=== PATIENT | female | born 1930 | race Hispanic/Latino ===

== ENCOUNTER 2017-01-15 07:49 | Observation (INO) | payer MEDICARE, OTHER ==
[2017-01-15 08:05] VITALS: BMI 20.5
--- NOTE | 2017-01-15 08:12 | ED PDOC ---
Arrival/HPI - General Time Seen by Provider: 01/15/17 07:50 Historian: Patient - History of Present Illness Narrative History of Present Illness (Text): 86 F with pmh of depression, insomnia, anxiety disorder, presents to the ED after passing out. Pt states that this morning she was having a cup of coffee when she passed out. She states that this has happened before and she was just dehydrated. This was witnessed by her daughter which saw her fall. She denies any history of seizures. She denies any headache, dizziness, f/c, sob, chest pain, palpitations, abd pain, n/v/d/c or urinary changes. PMH: depression, insomnia, anxiety disorder PSH: appendectomy (in the 1949's) Allergies: tetracycline Meds: Prozac, Klonopin SH: previous smoker 30 years ago (light use), denies alcohol or illicit drug use PMD: Dr. Epstein, Dr. Floyd Time/Duration: Prior to Arrival Symptom Onset: Sudden Symptom Course: Improving Quality: Other Activities at Onset: Eating Past Medical History - Provider Review Nursing Documentation Reviewed: Yes - Infectious Disease Hx of Infectious Diseases: None - Tetanus Immunization Tetanus Immunization: Unknown - Cardiac Hx Cardiac Disorders: Yes Hx Hypertension: Yes - Pulmonary Hx Respiratory Disorders: (SMOKED CIGARETTES BEFORE QUIT PK EVERY OTHER DAY) Hx Tuberculosis: No - Neurological Hx Neurological Disorder: Yes Hx Dizziness: Yes (SYNCOPE "FAINT") Hx Seizures: No - HEENT Hx HEENT Disorder: Yes 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) - Renal Hx Renal Disorder: No - Endocrine/Metabolic Hx Endocrine Disorders: No - Hematological/Oncological Hx Cancer: No - Integumentary Hx Dermatological Disorder: Yes (FELL TODAY 16 HAD A LINEAR SKIN ABRASION MEASURES 11 CM IN LENGTHX0.5) - Musculoskeletal/Rheumatological Hx Arthritis: Yes (L hand, low back) - Gastrointestinal Hx Gastrointestinal Disorders: Yes (C DIFF 09-04-12,IBS(IRRITABLE BOWEL SYNDROME )) Hx Diverticulitis: Yes - Genitourinary/Gynecological Hx Sexually Transmitted Diseases: No Hx Urinary Tract Infection: Yes - Psychiatric Hx Anxiety: Yes Hx Substance Use: No - Past Surgical History Past Surgical History: Non-Contributing - Surgical History Hx Appendectomy: Yes - Anesthesia Hx Anesthesia: Yes Hx Anesthesia Reactions: No Hx Malignant Hyperthermia: No - Suicidal Assessment Feels Threatened In Home Enviroment: No Family/Social History - Physician Review Nursing Documentation Reviewed: Yes Family/Social History: No Known Family HX Smoking Status: Former Smoker Hx Alcohol Use: No Hx Substance Use: No Hx Substance Use Treatment: No Allergies/Home Meds Allergies/Adverse Reactions: Allergies tetracycline Allergy (Severe, Verified 01/15/17 08:18) ANAPHYLAXIS Home Medications: Home Meds Medication Instructions Recorded Confirmed clonazePAM [Klonopin] 1 mg PO QID 01/15/17 01/15/17 Review of Systems - Physician Review All systems were reviewed & negative as marked: Yes - Review of Systems Constitutional: absent: Fevers, Night Sweats Eyes: absent: Vision Changes ENT: absent: Hearing Changes Respiratory: absent: SOB Cardiovascular: absent: Chest Pain, Palpitations Gastrointestinal: absent: Abdominal Pain, Diarrhea Musculoskeletal: absent: Arthralgias, Back Pain, Neck Pain Skin: absent: Rash Neurological: absent: Headache, Dizziness, Focal Weakness Endocrine: absent: Diaphoresis Hemo/Lymphatic: absent: Easy Bleeding Psychiatric: Anxiety Physical Exam Vital Signs Reviewed: Yes Vital Signs Temp Pulse Resp BP Pulse Ox 01/15/17 10:29 70 18 165/78 H 100 01/15/17 09:45 68 18 138/82 100 01/15/17 08:20 77 12 149/74 99 01/15/17 08:02 97.9 F 75 18 116/46 L 98 Temperature: Afebrile Blood Pressure: Normal Pulse: Regular Respiratory Rate: Normal Appearance: Positive for: Well-Appearing, Non-Toxic, Comfortable Mental Status: Positive for: Alert and Oriented X 3 Finger Stick Blood Glucose: 114 - Systems Exam Head: Present: Atraumatic, Normocephalic Pupils: Present: PERRL Mouth: Present: Moist Mucous Membranes Neck: Present: Normal Range of Motion Respiratory/Chest: Present: Clear to Auscultation, Good Air Exchange. No: Respiratory Distress, Accessory Muscle Use, Wheezes, Rales Cardiovascular: Present: Regular Rate and Rhythm, Normal S1, S2. No: Murmurs Abdomen: Present: Normal Bowel Sounds. No: Tenderness, Distention, Peritoneal Signs Upper Extremity: No: Cyanosis, Edema Lower Extremity: No: Edema, CALF TENDERNESS Neurological: Present: GCS=15, CN II-XII Intact, Speech Normal Skin: Present: Warm, Dry, Normal Color. No: Rashes Psychiatric: Present: Alert, Oriented x 3, Normal Insight, Normal Concentration , Anxious Medical Decision Making ED Course and Treatment: Impression: 86 F with presents following syncopal episode at home Differential Diagnosis included but are not limited to: Syncope vs seizure vs CVA Plan: CBC, CMP, CXR, Head CT -- Reassess and disposition Prior Visits: Notes and results from previous visits were reviewed. On // patient came in complaining of . Patient was discharged * with prescription of . Progress Notes: CXR shows no active disease. Head CT was negative for any acute intracranial hemorrhage EKG: Ordered, reviewed, and independently interpreted the EKG. Rate : 70 BPM Rhythm : NSR Interpretation : nonspecific ST and T wave abnormality Comparison : 07/12/16 - Lab Interpretations Lab Results: 01/15/17 08:15 01/15/17 08:58 Lab Results 01/15/17 09:10: Urine Color Yellow, Urine Appearance Clear, Urine pH 6.5, Ur Specific [employer] 1.010, Urine Protein Trace H, Urine Glucose (UA) Negative, Urine Ketones Negative, Urine Blood Trace-intact H, Urine Nitrate Positive H, Urine Bilirubin Negative, Urine Urobilinogen 0.2, Ur Leukocyte Esterase Negative , Urine RBC 0 - 2, Urine WBC 0 - 2, Ur Epithelial Cells 0 - 2, Urine Bacteria Many 01/15/17 08:58: Sodium 132, Potassium 4.5, Chloride 95 L, Carbon Dioxide 28, Anion Gap 14, BUN 15, Creatinine 0.8, Est GFR ( Amer) > 60, Est GFR (Non- Af Amer) > 60, Random Glucose 118 H, Calcium 9.6, Total Bilirubin 0.5, AST 20, ALT 23, Alkaline Phosphatase 64, Lactate Dehydrogenase 321 L, Total Creatine Kinase 26 L, Troponin I < 0.01, Total Protein 6.9, Albumin 3.9, Globulin 3.0, Albumin/Globulin Ratio 1.3 01/15/17 08:15: WBC 5.8, RBC 3.89, Hgb 12.6, Hct 37.2, MCV 95.6, MCH 32.4, MCHC 33.9, RDW 13.3, Plt Count 301, MPV 10.0, Gran % 37.7 L, Lymph % (Auto) 51.5 H, Porter % (Auto) 8.1 H, Eos % (Auto) 2.4, Baso % (Auto) 0.3, Gran # 2.18, Lymph # 3.0, Porter # 0.5, Eos # 0.1, Baso # 0.02 01/15/17 07:56: POC Glucose (mg/dL) 114 H - RAD Interpretation Radiology Orders: 01/15/17 08:06 HEAD W/O CONTRAST [CT] Stat 01/15/17 08:07 CHEST PORTABLE [RAD] Stat - Medication Orders Current Medication Orders: Discontinued Medications Clonazepam (Klonopin) 1 mg PO STAT STA PRN Reason: Protocol Stop: 01/15/17 09:19 Last Admin: 01/15/17 09:32 Dose: 1 mg Fluoxetine HCl (Prozac) 40 mg PO STAT STA Stop: 01/15/17 09:19 Last Admin: 01/15/17 09:45 Dose: 40 mg Ceftriaxone Sodium (Rocephin 1 Gram Ivpb) 1 gm in 100 mls @ 200 mls/hr IVPB STAT STA PRN Reason: Protocol Stop: 01/15/17 10:34 Last Admin: 01/15/17 10:22 Dose: 200 mls/hr Metronidazole (Flagyl) 500 mg PO STAT STA PRN Reason: Protocol Stop: 01/15/17 10:19 - PA / MANAGER ENVIRONMENTAL SERVICES / Resident Statement SIMIN has reviewed & agrees with the documentation as recorded. / has examined the patient and agrees with the treatment plan. Disposition/Present on Arrival - Present on Arrival Any Indicators Present on Arrival: No History of DVT/PE: No History of Uncontrolled Diabetes: No Urinary Catheter: No History Surgical Site Infection Following: None - Disposition Have Diagnosis and Disposition been Completed?: Yes Diagnosis: Syncope and collapse, UTI (urinary tract infection) Disposition Time: 09:54 Patient Plan: Admission Condition: FAIR Discharge Instructions (ExitCare): Syncope (ED)
[2017-01-15 08:31] LABS: ADD MANUAL DIFF? NO
[2017-01-15 08:34] LABS: BASO # 0.02 K/mm3 (0.0-2.0); BASO % 0.3 % (0.0-3.0); EOS # 0.1 (0.0-0.7); EOS % 2.4 % (1.5-5.0); GRAN # 2.18 (1.4-6.5); GRAN % 37.7 % (50.0-68.0); HEMATOCRIT 37.2 % (36.0-48.0); LYMPH % 51.5 % (22.0-35.0); MEAN CELL VOLUME 95.6 fL (80.0-105.0); MEAN CORPUSCULAR HEMOGLOBIN 32.4 pg (25.0-35.0); MEAN CORPUSCULAR HGB CONC 33.9 g/dl (31.0-37.0); MONO # 0.5 (0.1-0.6); MONO % 8.1 % (1.0-6.0); PLATELET COUNT 301 10^3/uL (120.0-450.0); RED CELL DISTRIBUTION WIDTH 13.3 % (11.5-14.5); WHITE BLOOD COUNT 5.8 10^3/ul (4.5-11.0)
--- NOTE | 2017-01-15 08:57 | CT ---
PROCEDURE: CT HEAD WITHOUT CONTRAST. HISTORY: syncope COMPARISON: Comparison is made to the previous study dated 02/26/2016. TECHNIQUE: Axial computed tomography images were obtained through the head/brain without intravenous contrast. Radiation dose: Total exam DLP = 688.42 mGy-cm. This CT exam was performed using one or more of the following dose reduction techniques: Automated exposure control, adjustment of the mA and/or kV according to patient size, and/or use of iterative reconstruction technique. FINDINGS: HEMORRHAGE: No intracranial hemorrhage. BRAIN: No mass effect or edema. No atrophy or chronic microvascular ischemic changes. VENTRICLES: Unremarkable. No hydrocephalus. CALVARIUM: Unremarkable. PARANASAL SINUSES: Unremarkable as visualized. No significant inflammatory changes. MASTOID AIR CELLS: Unremarkable as visualized. No inflammatory changes. OTHER FINDINGS: None. IMPRESSION: No evidence of acute intracranial hemorrhage or acute pathology in the brain. No significant interval change noted since the previous exam.
--- NOTE | 2017-01-15 09:06 | RAD ---
HISTORY: syncope COMPARISON: 07/12/2016 FINDINGS: LUNGS: No active pulmonary disease. PLEURA: No significant pleural effusion identified, no pneumothorax apparent. CARDIOVASCULAR: Normal. OSSEOUS STRUCTURES: No significant abnormalities. VISUALIZED UPPER ABDOMEN: Normal. OTHER FINDINGS: None. IMPRESSION: No active disease.
[2017-01-15 09:28] LABS: ALB/GLOB RATIO 1.3 (1.1-1.8); ALKALINE PHOSPHATASE 64 U/L (38-133); ALT/SGPT 23 U/L (7-56); AST/SGOT 20 U/L (15-39); BILIRUBIN,TOTAL 0.5 mg/dL (0.2-1.3); BLOOD UREA NITROGEN 15 mg/dL (7-21); CALCIUM 9.6 mg/dL (8.4-10.5); CARBON DIOXIDE 28 mmol/L (21-33); CHLORIDE 95 mmol/L (98-107); GFR AFRICAN-AMERICAN > 60; GLUCOSE,RANDOM 118 mg/dL (70-110); POTASSIUM 4.5 mmol/L (3.6-5.0); SODIUM 132 mmol/L (132-148); TOTAL PROTEIN 6.9 g/dL (5.8-8.3)
[2017-01-15 09:34] LABS: PH,URINE 6.5 (4.7-8.0); URINE APPEARANCE CLEAR (CLEAR); URINE BILIRUBIN NEGATIVE (NEGATIVE); URINE BLOOD TRACE-INTACT (NEGATIVE); URINE COLOR YELLOW (YELLOW); URINE GLUCOSE (UA) NEGATIVE (NEGATIVE); URINE KETONE NEGATIVE (NEGATIVE); URINE LEUKOCYTE ESTERASE NEGATIVE Leu/uL (NEGATIVE); URINE PROTEIN TRACE mg/dL (<30 mg/dL); URINE UROBILINOGEN 0.2 E.U./dL (<1 E.U./dL)
[2017-01-15 09:39] LABS: TROPONIN I < 0.01 ng/mL
[2017-01-15 09:48] LABS: URINE BACTERIA MANY (NEG); URINE EPITHELIAL CELLS 0 - 2 /hpf (0-5); URINE RBC 0 - 2 /hpf (0-2); URINE WBC 0 - 2 /hpf (0-6)
[2017-01-15] MEDS ORDERED: cefTRIAXone 1 gm 1 GM/100 ML BAG IVPB STA (10:05)
--- NOTE | 2017-01-15 13:33 | CARD ---
APPROVED REPORT EKG Measurement Heart [id number] <Conclusion> Normal sinus rhythm STTW changes c/w ischemia
--- NOTE | 2017-01-15 17:06 | CON ---
DATE: 01/15/2017 CHIEF COMPLAINT: Near syncope. HISTORY OF PRESENT ILLNESS: This is an 86-year-old woman with past medical history of depression who is actively depressed, insomnia, anxiety disorder, presenting to the ER after passing out. She was having a cup of coffee, where suddenly she passed out. She says this has happened before from her be ing dehydrated in the past. She has been extremely depressed recently. She denies any palpitations or any seizure like activity. No bowel or bladder incontinence. No history of trauma to the brain. She is still anxious looking. Her CT head showed no acute intracranial abnormalities. She has a mil d urinary tract infection, for which she was given 1 gram of ceftriaxone. She is currently on Klonop in, Prozac and Remeron for depression, anxiety and insomnia. Currently, she denies any acute complai nts at this time. Denies any change in sense of vision, taste, smell, or any paresthesias in the ext remities. Blood pressure diastolic is slightly low, on the lower side. She denies any focal weaknes s in the extremities. No headaches. PAST MEDICAL HISTORY: Depression, insomnia, anxiety disorder. REVIEW OF SYSTEMS: A 14-point review of systems is negative except for the HPI. FAMILY HISTORY: Noncontributory. ALLERGIES: TETRACYCLINE. MEDICATIONS: Reviewed, per nursing reconciliation sheet. PHYSICAL EXAMINATION: VITAL SIGNS: Temperature 97.6, pulse rate 86, blood pressure 129/81, respiratory rate of 18, oxygen saturation 100% on room air. GENERAL: The patient is sitting up in bed in no acute distress. HEENT: Atraumatic, normocephalic. PERRLA. Extraocular muscles intact. NECK: Supple, no JVD, no adenopathy noted. LUNGS: Clear to auscultation. No adventitious sounds. HEART: S1, S2, normal rate and rhythm. No murmurs, rubs, or gallops. ABDOMEN: Soft, nontender, nondistended. Bowel sounds are present. EXTREMITIES: No clubbing, no cyanosis. Peripheral pulses 2+ felt bilaterally. NEUROLOGIC: The patient is alert, oriented to person, place, month and year. Speech is fluent, with out any errors. Cranial nerves II through XII are intact. Motor exam: Moves all extremities t oes downgoing bilaterally. Sensory exam: Light touch, pinprick, proprioception, vibration intact. D TRs 2+ throughout. Coordination: Hlbfzy-ah-svsr intact. Gait: Deferred for now. PSYCHIATRIC: Her affect is slightly flat and depressed looking, mildly anxious. LABORATORY DATA: UA: Nitrites are positive with many bacteria. Sodium is 132, potassium 4.5, chlor dada 95, carbon dioxide 28, BUN of 15, creatinine 0.8. Random glucose 118. ASSESSMENT AND PLAN: This is an 86-year-old woman with history of anxiety, depression, insomnia, and history of a syncopal event in the past due to dehydration, who was drinking a cup of coffee when sh e suddenly passed out. At this time, I feel like her syncopal event is likely secondary to anxiety, causing the vasovagal type of syncope, rather than a seizure disorder. 1. She does not drink enough fluids. She likely was slightly dehydrated since she had low chloride. Would recommend to hydrate the patient. 2. Carotid Doppler to assess for any carotid artery stenosis. 3. Psychiatric consultation to manage her underlying depression and anxiety. 4. Cardiology consultation for passing out, possible loop recorder placement since this is the secon d episode and to continue with current present medical management. No further neurological workup ne eded at this time. Get PT and OT evaluation. Thank you for this consult. Fabio Cabezas MD cc: [id number] TT: 01/15/2017 17:05:32 Confirmation # [id number] Dictation # [id number]
--- NOTE | 2017-01-15 19:10 | CON ---
DATE: 01/15/2017 HISTORY OF PRESENT ILLNESS: Shortly, the patient is an 86-year-old female with reported hi story of major depressive disorder, generalized anxiety disorder and panic disorder. The patient has 2 previous psychiatric admissions in 2016 in February and March. This food writer is very familiar with this patient from her previous admission to the psychiatric inpatient unit last years. The patient at thi s time was admitted on the medical floor for possible urinary tract infection, and patient is status post fall, passed out at home. Psych consult was called for evaluation of depressive symptoms as wel l as anxiety symptoms. The patient was seen and examined. The patient presented to be very anxious, tremulous. The patient reported that she was not doing well. She was not able to sleep. She was not able to function, was feeling very depressed and hopeless. These symptoms are related to the fact that patient did not se e her grandson and great granddaughter for the past 15 months. Based on the history, the patient's alonso steele stopped any contact with the family while she was in the process of divorce, and since that t [place] he is not returning any calls from patient and her daughter. The patient reported that this situ ation is "breaking my heart and I'm not able to function." The patient reported that she does not garcia ve thoughts of killing herself or others. The patient reported that she was compliant with the medic ations and followup appointments. The patient was seen by Dr. Pompa in the community. The patient ita kathy this food writer give a call to her daughter, Joslyn ([phone]). As per Joslyn, the patient was not doing very well, was not able to sleep, was scared. The patient was not able to function chel pite the fact that she was compliant with medications. She was constantly feeling anxious as well as hopeless. The patient's daughter requested psychiatric admission for the patient. VITAL SIGNS: Reviewed. Temperature 97.6, pulse is 83, blood pressure 129/81, respirations 18, oxyge n saturation is 100. MEDICATIONS: Reviewed. Tylenol, Klonopin 1 mg q.i.d., Prozac 40 mg daily; will continue that. Will adjust medication as needed. The patient also was on Remeron 30 mg at the nighttime; the patient wi ll be resumed. MENTAL STATUS EXAMINATION: The patient appears to be alert, very anxious. Intermittent eye contact. Speech was underproductive, low volume. Mood described, "I feel very anxious and depressed and hop eless". Thought process was circumstantial. Thought content: The patient denied visual, auditory, tactile hallucinations. Denied paranoid ideations. The patient denied thoughts of killing herself o r others. Insight and judgment are limited. Impulses are well controlled. IMPRESSION: Rule out major depressive disorder with no psychotic symptoms. Rule out generalized anx iety disorder, rule out panic disorder with agoraphobia. The patient was admitted to the medical aubrie or for status post fall and possible urinary tract infection. PLAN: Collaterals were obtained from the patient's daughter, Joslyn. The patient gave permission to speak to her. The patient was [facility]. Medications were c onfirmed. The patient was on Remeron 30 mg at the nighttime, Prozac 40 mg daily, Klonopin 1 mg 4 brian es a day. The patient does not want to go to the psychiatric inpatient unit, but deemed that she nee ds to. Dose of medications were confirm with the patient's daughter. The patient's daughter request ed psychiatric admission because patient was not functioning, was not sleeping, was losing weight and was feeling very anxious. This food writer will consider to transfer patient after medical stabilization . Should you have any questions, give me a call back. Will follow up on this patient tomorrow. Karo Smiley MD cc: [id number] TT: 01/15/2017 19:10:13 Confirmation # [id number] Dictation # [id number] mn
[2017-01-16 05:46] VITALS: RESP 18; O2SAT 98
[2017-01-16] MEDS ORDERED: POLYETHYLENE GLYCOL 3350 17 GM/Dose PACKET PO STA (08:29)
--- NOTE | 2017-01-16 09:47 | US ---
PROCEDURE: Bilateral carotid artery duplex ultrasound HISTORY: Carotid stenosis syncope PHYSICIAN(S): Delio Epstein MD. TECHNIQUE: Duplex sonography and color-flow Doppler were used to evaluate the carotid bifurcations and limited segments of the vertebral arteries bilaterally. The exam is very limited by tortuous vessels. FINDINGS: There is mild smooth heterogeneous plaque noted at the carotid bifurcations bilaterally. The peak systolic velocity in the proximal right internal carotid artery is 104 cm/sec. This corresponds to a 20 to 39% proximal right ICA stenosis. Normal systolic velocities are noted in the proximal right external carotid artery. There is antegrade flow in the right vertebral artery. The peak systolic velocity in the proximal left internal carotid artery is 102 cm/sec. This corresponds to a 20 to 39% proximal left ICA stenosis. Normal systolic velocities are noted in the proximal left external carotid artery. There is antegrade flow in the left vertebral artery. IMPRESSION: 1. Bilateral 20-39% proximal ICA stenoses. 2. Antegrade flow in both vertebral arteries.
[2017-01-16] MEDS ORDERED: cefTRIAXone 1 gm 1 GM/100 ML BAG IVPB SCH (10:00)
[2017-01-16] MEDS ORDERED: Lactobacillus Acidophilus 500 MU Cap PO SCH (10:30)
--- NOTE | 2017-01-16 11:30 | CON ---
DATE: 01/16/2017 INDICATIONS: Syncope. HISTORY OF PRESENT ILLNESS: This is an 86-year-old woman known to us from previous admissions, admitted yesterday with a witnessed syncope. She was sitting at the table at home and passed out. She did not have an injury. She was taken to the Emergency Room. Subsequently, she was admitted to telemetry. She feels well this morning. She does not recall chest pain, shortness of breath, palpitations, vertigo or other significant cardiac symptoms, although she does not exactly recall what happened. There was no fever, chills, cough, sputum production or hemoptysis. No abdominal pain, nausea, vomiting, diarrhea , constipation, melena. PAST MEDICAL HISTORY: She has a prior history of a syncopal event; at that time attributed to dehydration. She has a psychiatric history with depression and anxiety; currently on Klonopin, Prozac, and Remeron. She has had psychiatric hospitalizations for depression. There is no history of rheumatic fever, myocardial infarction, angina, congestive heart failure, arrhythmia, stroke, TIA, diabetes. Additional past medical history includes hyperlipidemia , appendectomy. SOCIAL HISTORY: She is a former remote smoker. She lives at home. She does not drink alcohol. FAMILY HISTORY: Noncontributory. ALLERGIES: SHE NOTES AN ALLERGY TO TETRACYCLINE. REVIEW OF SYSTEMS: Ten point review of systems otherwise unremarkable except as noted above. PHYSICAL EXAMINATION: GENERAL: She is a well-developed elderly woman sitting on her bed in telemetry , in no acute distress. VITAL SIGNS: Unremarkable. She is in sinus rhythm in the 60s. She is afebrile. Blood pressure 128/60, respirations 18-20, O2 sat 98% on room air. HEENT: Reveals no neck vein distention, thyromegaly, or carotid bruits. Mucous membranes moist. Conjunctivae are pink. NECK: Supple. CHEST: Lung bales clear throughout. HEART: Revealed normal first and second heart sounds. ABDOMEN: Soft, bowel sounds are present. No mass, organomegaly, tenderness, rebound, guarding, CVA tenderness. EXTREMITIES: Revealed no cyanosis, clubbing, or edema. NEUROLOGIC: She is awake, alert and oriented. PSYCHIATRIC: Normal as to mood and affect. SKIN: Warm and dry. No rash or cellulitis. LABORATORY AND IMAGING: An EKG demonstrates regular sinus rhythm with nonspecific ST-wave changes. A chest x-ray reveals no active disease. A carotid ultrasound reveals bilateral 20-39% carotid stenoses. CBC is unremarkable. Electrolytes, BUN, creatinine and blood sugar, LFTs unremarkable. CK 26, troponin less than 0.01. Urinalysis is noted. IMPRESSION: The patient is an 86-year-old woman with depressive disorder, psychiatric problems, on Klonopin, Prozac, Remeron, who suffered a syncopal spell at home with a previous history of syncope. She did not experience injury. No arrhythmia has been detected so far on telemetry. PLAN: At this time, I agree with current plans. She is undergoing neurologic and psychiatric evaluation. I will order an echocardiogram. We will check her for orthostatic vital signs. We will continue telemetry for another day. She should keep well hydrated. She should be considered a high fall risk. Her urine has been cultured. I will follow along with you. I will make additional recommendations based on her clinical course. Anthony Akers MD cc: [id number] TT: 01/16/2017 11:30:20 Confirmation # [id number] Dictation # [id number] beka NOLAND
--- NOTE | 2017-01-16 11:46 | PN ---
DATE: 01/16/2017 The patient was followed up today. Discussed with Dr. Floyd as well as patient's daughter, Sherry lane. Based on collateral information, patient was not doing well. The patient was extremely anxious, was not sleeping. The patient was not able to function. The patient kept calling 911 for her sympto ms. The patient was feeling hopeless and helpless and patient's daughter does not feel that medicati on is helping her mother. The patient presented to be depressed, hopeless, difficulty to concentrate , difficulty to stay focused, has difficulty to fall asleep, to stay asleep, feeling constantly anxio us, was refusing to leave the house and needs to have 24-hour care from her daughter. Discussed with patient's primary care physician, Dr. Floyd, and confirmed with that information. Vital signs we re stable. MEDICATIONS: Reviewed. Tylenol, Rocephin will be switched to p.o. antibiotic, Klonopin 1 mg 4 times a day. Prozac will be resumed. Paxil, lactobacillus. The patient is also on Remeron 30 mg at the [facility] and all of the medications resumed. MENTAL STATUS EXAMINATION: The patient appears to be very anxious. The patient kept repeating the s mg question over and over again. The patient has difficulty to stay focused and concentrate. Inter mittent eye contact. Speech was underproductive, low volume. Mood described as, "I feel hopeless an d very anxious." Affect was constricted and tearful, mood congruent. Thought process seems to be co herent and goal directed. Thought content: The patient denied visual, auditory, or tactile hallucin ations, denied paranoid ideations. The patient denied suicidal thoughts or suicidal ideations, denie d intent or plan. IMPRESSION: Major depressive disorder. Rule out panic disorder with agoraphobia. The patient also has pathological grief. The patient's grandson was not returning any of the family phone calls for t he past 15 months. The patient also has multiple medical issues. The patient is status post fall, b ut doing better. The patient is having urinary tract infection and dehydrated. PLAN: After medical stabilization, the patient will be transferred to psychiatric inpatient unit in order to adjust medications. The patient most likely would benefit from norepinephrine reuptake inhi bitors such as Effexor versus Paxil at the nighttime. Will discuss options. The patient will be con tinued on Klonopin for now. The patient will be continued on Remeron as of now. We will discuss wha t options the patient has. The patient is 86 years old, fragile and high risk of falling. That is w hy this appeals writer does not want to give Ambien or Sonata, but will consider that if patient is not impro ving. Meanwhile CBT will be implemented. The patient signed consent for psychiatric inpatient unit admission. After medical clearance, the patient will be transferred. Case was discussed with Dr. Isabel raines and the patient's daughter. Should you have any questions, give me a call back. Karo Smiley MD cc: [id number] TT: 01/16/2017 11:45:22 Confirmation # [id number] Dictation # [id number] sagrario
[2017-01-16 12:31] VITALS: BP 127/59; PULSE 83; TEMP 99
--- NOTE | 2017-01-16 14:54 | HP ---
CHIEF COMPLAINT AND HISTORY OF PRESENT ILLNESS: This is an 86-year-old female who is coming into the hospital with complaints of passing out. The patient has a past medical history of anxiety, dementi a, insomnia. She said that she was having a cup of coffee when she passed out. She says that this h as happened before. It was witnessed by her daughter. I did speak to the daughter at the bedside. She has no history of chest pain, no abdominal pain, no back pain, no dysuria, no frequency. No weak ness in the arms or the legs. No history of seizures. She is anxious. She says that she is open to the idea of going to the psychiatric unit. She has history of panic disorder. She has had previous psychiatric admissions last year. She said she feels weak and tired. All other review of symptoms are within normal limits except as mentioned. SOCIAL HISTORY: She denies smoking and drinking. FAMILY HISTORY: Noncontributory. PAST MEDICAL HISTORY: As above. Also, has dyslipidemia and osteoarthritis. MEDICATIONS: She is on Prozac, Tylenol, Remeron. PAST SURGICAL HISTORY: Ovarian cyst surgery and carpal tunnel syndrome surgery. PHYSICAL EXAMINATION: VITAL SIGNS: Temperature is 99, pulse of 83, blood pressure is 127/ , respiration is 18, O2 satu ration 98%, height is 5 feet 4 inches, weight is 96 pounds, BMI is 16.5. GENERAL: The patient lying in bed, flat, and in no apparent distress. HEAD AND NECK EXAM: Atraumatic, normocephalic. Conjunctivae are pink. Throat clear and mouth with moist mucosa. Oropharynx benign. EYES: Extraocular movements are intact. PERRLA. NECK: Supple. No JVD, thyromegaly, or adenopathy. No bruits. HEART: S1 and S2 regular rate and rhythm. No murmurs, rubs, or gallops. LUNGS: Clear to auscultation bilaterally. No wheezing rales or rhonchi appreciated. No retraction s on exam. ABDOMEN: Soft, nontender, nondistended. Bowel sounds are positive in all quadrants. No rebound. No hepatosplenomegaly. EXTREMITIES: No cyanosis, clubbing, or edema. NEUROLOGIC: No facial asymmetry, tongue is midline, no uvula deviation. Power is 5/5 in upper extr emity and 5/5 in lower extremity. Sensation is normal in upper extremity and lower extremity. PSYCHIATRIC: Awake, alert, oriented x 3. No anxiety or depression symptoms. Good insight. Hina l affect. GENITOURINARY: No CVA tenderness VASCULAR: 2+ pulses in carotid and pedal pulses. SKIN: No erythema or abnormal nodules noted. SPINE: Normal curvature. LYMPHADENOPATHY: No anterior cervical or posterior cervical adenopathy. No inguinal adenopathy. LABORATORIES: White count of 5.8, hemoglobin 12.6. Chemistry shows a sodium 132, potassium is 4.5, creatinine is 0.8. Urine shows blood is trace, nitrites are positive. Carotid ultrasound done showed bilateral 20%-39% proximal ICA stenosis. CT of the head shows no evidence of acute intracranial hemorrhage. Chest x-ray shows no active disea se. EKG shows sinus rhythm at 70. ASSESSMENT: 1. Syncope. 2. Anxiety. 3. Osteoarthritis. 4. Dyslipidemia. PLAN: The patient is currently comfortable. She is on Klonopin for her anxiety. She is on Prozac. The patient is going to be getting an echo ordered by Dr. Akers. She is going to have Dr. Jocelynn miller ee her as well. I did speak to Dr. Huddleston regarding psychiatric admission. She is willing to accept t he patient. The patient is also willing to go. I did speak to the patient's daughter to give her an update on the patient's diagnosis and plan of care. She is cleared to be discharged to the psychiat thomas unit. We will place her on a heart healthy diet. Oleg Floyd MD cc: [id number] TT: 01/16/2017 14:54:02 en
--- NOTE | 2017-01-16 17:20 | CARD ---
APPROVED REPORT EXAM: Two-dimensional and M-mode echocardiogram with Doppler and color Doppler. INDICATION Syncope 2D DIMENSIONS Left Atrium (2D)4.3 (1.6-4.0cm)IVSd0.9 (0.7-1.1cm) LVDd4.6 (3.9-5.9cm)PWd1.1 (0.7-1.1cm) LVDs3.3 (2.5-4.0cm)FS (%) 28.8 % LVEF (%)55.4 (>50%) M-Mode DIMENSIONS Aortic Root2.80 (2.2-3.7cm)Aortic Cusp Exc.1.60 (1.5-2.0cm) Aortic Valve AoV Peak Xtkamcae147.0cm/sAoV VTI34.0cmAO Peak GR.8mmHg LVOT Peak Qpzmysdn91.8cm/sLVOT VTI22.80cmAO Mean GR.4mmHg Mitral Valve MV E Tfbypxtv66.1cm/sMV A Mxmsdecl60.8cm/sE/A ratio0.8 TDI Lateral E' Peak V8.19cm/sMedial E' Peak V6.14cm/sE/Lateral E'7.5 E/Medial E'10.0 Pulmonary Valve PV Peak Vsgmemvh23.8cm/sPV Peak Grad.1mmHg Tricuspid Valve TR Peak Yklngynf176bi/sRAP SUJLEPRO77kuRyWD Peak Gr.47mmHg MQMR00pbSt LEFT VENTRICLE The left ventricle is normal size. There is normal left ventricular wall thickness. The left ventricular function is normal. The left ventricular ejection fraction is within the normal range. There is normal LV segmental wall motion. RIGHT VENTRICLE The right ventricle is normal size. The right ventricular systolic function is normal. ATRIA The left atrium is mildly dilated. The right atrium is mildly dilated. The interatrial septum is intact with no evidence for an atrial septal defect. AORTIC VALVE The aortic valve is mildly sclerotic. No aortic regurgitation is present. There is no aortic valvular stenosis. MITRAL VALVE The mitral valve is mildly thickened. Mitral regurgitation is moderate to severe. TRICUSPID VALVE The tricuspid valve is normal in structure. There is moderate tricuspid regurgitation. PULMONIC VALVE The pulmonary valve is normal in structure. GREAT VESSELS The aortic root is normal in size. The IVC is normal in size and collapses >50% with inspiration. PERICARDIAL EFFUSION There is no pleural effusion. There is no pericardial effusion. <Conclusion> Biatrial enlargement. Normal LV size and systolic function. Moderate to severe MR. Moderate TR.
== END 2017-01-16 17:51 ==
LOC: ED 07:49 → ERH 10:06 → 2RNO 11:42
PROVIDERS: ADMIT Internal Medicine Nephrology; ATTEND Internal Medicine Nephrology
DX: F41.1 Generalized anxiety disorder (principal); R55 Syncope and collapse; N39.0 Urinary tract infection, site not specified; E86.0 Dehydration; F32.9 Major depressive disorder, single episode, unspecified; M19.90 Unspecified osteoarthritis, unspecified site; E78.5 Hyperlipidemia, unspecified; G47.00 Insomnia, unspecified; Z87.891 Personal history of nicotine dependence
CPT/HCPCS: 70450; 71010; 80053; 81001; 82550; 82948; 83615; 84484; 85025; 87086; 93005; 93306; 93880; 96365; 97116; 97162; 99285; G0378; G8978; G8979; G8980; J0696

== ENCOUNTER 2017-01-16 17:30 | Inpatient (IN) | payer MEDICARE, OTHER ==
[2017-01-15 08:05] VITALS: BMI 20.5
[2017-01-16] MEDS ORDERED: Magnesium Hydroxide Susp 30 ml UD PO PRN (18:25)
[2017-01-16] MEDS ORDERED: Alum-Mag Hydrox-Simethicone Susp (30 mL) PO PRN (18:25)
[2017-01-17 07:39] LABS: CHOLESTEROL 249 mg/dL (130-200)
[2017-01-17] MEDS ORDERED: Bismuth Subsalicylate 262 mg/15 ml Sus (240 ml) PO PRN ×2 (07:57→07:59)
[2017-01-17] MEDS ORDERED: Magnesium Hydroxide Susp 30 ml UD PO PRN (07:57)
[2017-01-17 08:03] LABS: FREE T4 0.86 ng/dL (0.78-2.19); THYROID STIMULATING HORMONE 1.62 mIU/mL (0.46-4.68)
--- NOTE | 2017-01-17 09:20 | CON ---
DATE: 01/17/2017 REFERRING PHYSICIAN: Dr. Smiley REASON FOR CONSULTATION: Medical management of osteoarthritis, dyslipidemia. CHIEF COMPLAINT AND HISTORY OF PRESENT ILLNESS: This is an 86-year-old female who came into the hosp ital yesterday after she had passed out according to her at home. The patient has a history of anxie ty and insomnia. She said that she was drinking coffee and she had passed out. Daughter was with he r. She was brought into the ER for further evaluation. The patient says she is anxious. She has no complaints of any headaches or dizziness, no chest pain, no shortness of breath, no nausea, no vomit ing. She says she was having diarrhea yesterday, possibly from the antibiotics. REVIEW OF SYSTEMS: All other review of symptoms is within normal limits except as mentioned. ALLERGIES: TETRACYCLINE. HOME MEDICATIONS: Prozac, Tylenol, Remeron. PAST MEDICAL HISTORY: Osteoarthritis, dyslipidemia, anxiety. FAMILY HISTORY: Noncontributory. PAST SURGICAL HISTORY: Ovarian cyst surgery and carpal tunnel syndrome surgery. SOCIAL HISTORY: She denies smoking, drinking. PHYSICAL EXAMINATION: VITAL SIGNS: Temperature is 97.5, pulse of 62, blood pressure is 145/70, respirations 20. Height is 5 feet 4, weight is 99 pounds, BMI is 17. GENERAL: Patient lying in bed, flat, and in no apparent distress. HEAD AND NECK EXAM: Atraumatic, normocephalic. Conjunctivae are pink. Throat clear and mouth with moist mucosa. Oropharynx benign. EYES: Extraocular movements are intact. PERRLA. NECK: Supple. No JVD, thyromegaly, or adenopathy. No bruits. HEART: S1 and S2 regular rate and rhythm. No murmurs, rubs, or gallops. LUNGS: Clear to auscultation bilaterally. No wheezing rales or rhonchi appreciated. No retraction s on exam. ABDOMEN: Soft, nontender, nondistended. Bowel sounds are positive in all quadrants. No rebound. No hepatosplenomegaly. EXTREMITIES: No cyanosis, clubbing, or edema. NEURO: No facial asymmetry, tongue is midline, no uvula deviation. Power is 5/5 in upper extremity and 5/5 in lower extremity. Sensation is normal in upper extremity and lower extremity. PSYCH: Awake, alert, oriented x3. No anxiety or depression symptoms. Good insight. Normal affec t. : No CVA tenderness VASCULAR: 2+ pulses in carotid and pedal pulses. SKIN: No erythema or abnormal nodules noted. SPINE: Normal curvature. LYMPHADENOPATHY: No anterior cervical or posterior cervical adenopathy. No inguinal adenopathy. LABORATORY DATA: LDL is 164, HDL is 64. Yesterday's labs were reviewed. Creatinine was 0.8. The p atient has a urine culture that shows enterococcus, sensitive to ampicillin. The patient is going to be started on ampicillin. ASSESSMENT: 1. Urinary tract infection secondary to enterococcus, sensitive to ampicillin. 2. Anxiety. 3. Osteoarthritis. 4. Dyslipidemia. PLAN: The patient is currently comfortable. Urine culture showed greater than 100,000 enterococcus, sensitive to ampicillin. The patient has been placed on Pepto-Bismol, is on Prozac. She is on Lori esther. The patient is on a heart healthy diet. The patient currently has no active issues. Oleg Floyd MD cc: [id number] TT: 01/17/2017 09:18:58 Confirmation # [id number] Dictation # [id number] tn
--- NOTE | 2017-01-17 12:48 | PCM.PSYCH ---
Initial Psychiatric Evaluation - Initial Psychiatric Evaluation Type of Admission: Voluntary Legal Status: Capacity (patient has capacity to sign consent for treatment) Chief Complaint (in patient's own words): "my heart is broken" Patient's Reaction to Hospitalization: patient was admitted to the psychiatric inpatient unit for evaluation and stabilization of worsening depressive symptoms, anxiety symptoms, inability to function. History of Present Illness and Precipitating Events: Patient is a 86 yo WF with history of depression and anxiety, two previous psychiatric admissions February 2016, March 2016 to this facility, no h/o suicidal attempts, multiple medical issues, pt was initially admitted on the medical floor s/p syncopal episode, pt was found to have UTI and dehydration, psychiatric consult was called for worsening of depressive and anxiety symptoms. pt was compliant with medications and follow up appts but still was not functioning well. Pt needs further evaluation and observation, medication management. pt was seen today at am at the treatment team meeting, pt presented to be anxious, tremolos, seems lost a lot of weight. pt seems to be careless about her appearance, fair ADLs, good hygiene. Pt said that her grandson whom she raised is not returning family calls for the past 15years. Pt said that this is her main stress and "my heart is broken", pt has difficulties to accept the fact that he and his daughter is "not in my life anymore", pt was keep calling her grandson and leaving his messages but "he never return our phone calls". Pt said that this situation is making her feel "hopeless and depressed", pt said that she had difficulties to fall and stay asleep, pt was having panic attacks, was keep asking her daughter "to sleep with me, I am very scared", as per pt's daughter collaterals pt was not letting her to leave the house, if pt's daughter needs to work on computer and leave the room pt was calling 911 and was saying that she is dying. pt also was feeling anxious and had panic attacks. pt also lost approximately 20Lb unintentionally for the past two months "I did not feel like eating". pt denied v/a/t hallucinations, denied paranoid ideation, pt does not present psychotic. pt was on prozac 40mg and klonopin 1mg four times a day, Remeron 30mg at night, by dr Pompa, confirmed by daughter. pt wants meds to be changed, was educated about effexor and paxil, pt was on effexor before but for unknown reason it was d/c, will try paxil for now. Past psych h/o: pt had two previous admissions to this unit in 2015 and march, no suicidal attempts. Medical h/o: currently UTI, h/o cdiff, s/p fall, dehydration, was seen by , consult appreciated. Family h/o: pt's daughter suffers from anxiety, ptsd, stable on cymbalta, pt was on cybalta before but it was not effective. Social: pt is a , lives with her daughter who is supportive. Lab Results 01/17/17 06:00: Triglycerides 106, Cholesterol 249 H, LDL Cholesterol Direct 164 H, HDL Cholesterol 64 H 01/17/17 06:00: Free T4 0.86, TSH 3rd Generation 1.62 Temp Pulse Resp BP Pulse Ox 97.5 F L 62 20 145/70 01/17/17 07:16 01/17/17 07:16 01/17/17 07:16 01/17/17 07:16 Current Medications: Active Medications Generic Name Dose Route Start Last Admin Trade Name Freq PRN Reason Stop Dose Admin Acetaminophen 650 mg 01/16/17 18:25 Tylenol 325mg Tab PO Q4 PRN Pain, Mild (1-3) Al Hydrox/Mg Hydrox/Simethicone 30 ml 01/16/17 18:25 01/16/17 19:51 Maalox Plus 30 Ml PO 30 ml DAILY PRN Administration Upset Stomach Ampicillin 500 mg 01/17/17 13:00 Ampicillin PO 01/24/17 13:01 [facility]ID [facility] Protocol Bismuth Subsalicylate 262 mg 01/17/17 07:59 01/17/17 09:46 Pepto-Bismol PO 262 mg Q6 PRN Administration Diarrhea Clonazepam 1 mg 01/16/17 18:30 01/17/17 07:55 Klonopin PO 1 mg QID EZEQUIEL Administration Protocol Fluoxetine HCl 40 mg 01/17/17 07:00 01/17/17 07:55 Prozac PO 40 mg DAILY EZEQUIEL Administration Magnesium Hydroxide 30 ml 01/17/17 07:57 Milk Of Magnesia PO Q6 PRN Constipation Mirtazapine 30 mg 01/16/17 22:00 01/16/17 20:59 Remeron PO 30 mg HS EZEQUIEL Administration Past Psychiatric History - Past Psychiatric History Previous Treatment History: Inpatient Prior Professional Help: see HPI Prior Psychiatric Treatment: see HPI At what hospital: see HPI Duration: see HPI Nature of Treatment: see HPI Explanation of prior treatment: see HPI History of Abuse: see HPI, denied History of ETOH/Drug Use: see HPI History of Family Illness: see HPI Pertinent Medical Hx (Current Medical&Sleep Prob, Allergies): Allergies Allergy/AdvReac Type Severity Reaction Status Date / Time tetracycline Allergy Severe ANAPHYLAXIS Verified 01/17/17 08:09 FLUoxetine [Prozac] 40 mg PO DAILY #0 cap 03/22/16 clonazePAM [Klonopin] 1 mg PO QID 01/15/17 Review of Systems - Review of Systems Systems not reviewed;Unavailable: Acuity of Condition - EENT Eyes: As Per HPI Ears: As Per HPI Nose/Mouth/Throat: As Per HPI - Breasts Breasts: As Per HPI - Cardiovascular Cardiovascular: As Per HPI - Respiratory Respiratory: As Per HPI - Gastrointestinal Gastrointestinal: As Per HPI - Genitourinary Genitourinary: As Per HPI - Reproductive: Female Reproductive:Female: As Per HPI - Menstruation Menstruation: As Per HPI - Musculoskeletal Musculoskeletal: As Par HPI - Integumentary Integumentary: As Per HPI - Neurological Neurological: As Per HPI - Psychiatric Psychiatric: As Per HPI - Endocrine Endocrine: As Per HPI - Hematologic/Lymphatic Hematologic: As Per HPI Mental Status Examination - Personal Presentation Personal Presentation: Looks stated age - Affect Affect: Blunted, Flat - Motor Activity Motor Activity: Calm, Other - Reliability in Providing Information Reliability in Providing Information: Good, Fair - Speech Speech: Organized - Mood Mood: Depressed, Anxious - Formal Thought Process Formal Thought Process: No Impairment - Obsessions/Compulsions Obsessions: None Compulsions: None - Cognitive Functions Orientation: Person, Place, Situation, Time Sensorium: Alert Attention/Concentration: Easily distracted Abstract Thinking: As evidence by literal perception of proverbs Estimate of Intelligence: Average Judgement: Intact, as evidence by: Insight regarding need for hospitalization - Risk Risk: Self-mutilation, Diminished functioning, Other (inability to function, lost appetite, deteriorating) - Strength & Assets Inventory Strength & Assets Inventory: Intelligence, Family support, Education, Skills, Life experience, Cooperative, Other (supported by her daughter) - Limitations Limitations: Other (ssocial stress, patient and grandson is not returning her calls) DSM 5 DX - DSM 5 DSM 5 Diagnosis: major depressive disorder Generalized anxiety disorder Panic disorder with agoraphobia Rule out adjustment disorder with depressed and anxious mood - Recommended/Plan of Treatment Treatment Recommendations and Plan of Treatment: milieu, structure, supportive therapy Prozac will be decreased to 30 mg a day with the plan to taper that down We'll initiate Paxil minimal dose at the nighttime with a plan to titrate up accordingly We'll continue Remeron 30 mg at the nighttime for insomnia and depression We'll continue Klonopin 1 mg 4 times a day for now for anxiety Patient was seen by medical team, urinary tract infection is under control, 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 - Smoking Cessation Smoking Cessation Initiated: No Reason for not providing: patient does not smoke does not use drugs
--- NOTE | 2017-01-18 08:15 | PN ---
DATE: 01/18/2017 SUBJECTIVE: The patient has no complaints of any headaches or dizziness. She says she was having di arrhea, but the nurse states that she has formed stools, it is just loose PHYSICAL EXAMINATION: VITAL SIGNS: Temperature is 97.5, pulse of 63, blood pressure 131/62, respirations 20. GENERAL: The patient comfortable, in no acute distress. HEENT: Anicteric sclerae. Moist mucosa. NECK: No JVD or adenopathy. CARDIAC: S1/S2. No murmurs. No rubs. Regular. RESPIRATORY: Clear to auscultation bilaterally. No wheezes, rales, or rhonchi. Good air entry. ABDOMEN: Bowel sounds are positive, soft, nontender, and nondistended. EXTREMITIES: No edema. Has 1+ pulses. ASSESSMENT: 1. Urinary tract infection secondary to enterococcus. 2. Anxiety. 3. Osteoarthritis. 4. Dyslipidemia. PLAN: The patient is currently comfortable. She has been placed on ampicillin for antibiotics for U TI. She has been placed on Flagyl as she is a high risk of having C. diff as she has had C. diff in the past. The patient is on paroxetine, is going to continue with Prozac. The patient is on Tylenol as needed. Oleg Floyd MD cc: [id number] TT: 01/18/2017 08:15:00 Confirmation # [id number] Dictation # [id number] tn
--- NOTE | 2017-01-18 16:24 | PCM.PYCHPN ---
Psychiatric Progress Note - Psychiatric Progress Note Patient seen today, length of contact: 30min Patient Chief Complaint: "I am very depressed, please come back later and check on me..." Problems Identified/Issues Discussed: Suicide/ homicide prevention, past psychiatric h/o, current psychiatric symptoms , medical problems, risk/benefits and alternatives of medications, medications compliance, coping strategies, substance abuse h/o, relapse prevention, importance of follow up with psychiatrist and therapist, discharge plan. Medical Problems: UTI, dehydration, osteoarthritis and dyslipidemia Diagnostic Results: Lab Results 01/17/17 06:00: Triglycerides 106, Cholesterol 249 H, LDL Cholesterol Direct 164 H, HDL Cholesterol 64 H 01/17/17 06:00: RPR Nonreactive 01/17/17 06:00: Free T4 0.86, TSH 3rd Generation 1.62 Vital Signs Temp Pulse Resp BP 01/18/17 07:13 97.5 F L 63 20 131/62 01/17/17 16:00 89 123/70 01/17/17 07:16 97.5 F L 62 20 145/70 01/16/17 18:23 98.4 F 79 18 129/74 DSM 5 Symptoms Update: Patient is a 86 yo WF with history of depression and anxiety, two previous psychiatric admissions February 2016, March 2016 to this facility, no h/o suicidal attempts, multiple medical issues, pt was initially admitted on the medical floor s/p syncopal episode, pt was found to have UTI and dehydration, psychiatric consult was called for worsening of depressive and anxiety symptoms. pt was compliant with medications and follow up appts but still was not functioning well. Pt needs further evaluation and observation, medication management. pt was seen today at am in her room, pt said that she slept well but still feels depressed and hopeless, pt said "please help me doctor, I cannot live like that anymore, my heart is broken". pt said that she feels anxious. pt was educated about her current medications and tx plan. pt c/o upset stomach, pt was started on flagyl, pt has h/o C.Diff. pt was seen by . as per staff pt is needy and apologetic, pleasant, looks depressed. pt tolerated meds well, no side effects observed or reported, AIMS 0, no EPS. Impression: MDD SHAHEEN panic disorder adjustment d/o with depressed an anxious mood. Medication Change: Yes (prozac decreased, paxil increased) Medical Record Reviewed: Yes Consults ordered or reviewed: medical consult appreciated Mental Status Examination - Cognitive Function Orientation: Person, Place, Situation, Time Memory: Intact Attention: Poor Concentration: Poor Association: WNL Fund of Knowledge: WNL - Mood Mood: Depressed, Anxious - Affect Affect: Blunted, Flat - Formal Thought Process Formal Thought Process: No Impairment - Suicidal Ideation Suicidal Ideation: No - Homicidal Ideation Homicidal Ideation: No Goal/Treatment Plan - Goal/Treatment Plan Need for Continued Stay: Remain at risks for inpatient hospitalization, Severe depression anxiety, Discharge may exacerbated symptoms Progress Toward Problem(s) and Goals/Treatment Plan: milieu, structure, supportive therapy Prozac will be decreased to 20 mg a day with the plan to taper that down Paxil 20mg at the nighttime with a plan to titrate up accordingly We'll continue Remeron 30 mg at the nighttime for insomnia and depression We'll continue Klonopin 1 mg 4 times a day for now for anxiety Patient was seen by medical team, urinary tract infection is under control, 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
--- NOTE | 2017-01-19 16:28 | PCM.PYCHPN ---
Psychiatric Progress Note - Psychiatric Progress Note Patient seen today, length of contact: 30min Patient Chief Complaint: "I feel 2%better doctor..." Problems Identified/Issues Discussed: Suicide/ homicide prevention, past psychiatric h/o, current psychiatric symptoms , medical problems, risk/benefits and alternatives of medications, medications compliance, coping strategies, substance abuse h/o, relapse prevention, importance of follow up with psychiatrist and therapist, discharge plan. Medical Problems: UTI, dehydration, osteoarthritis and dyslipidemia Diagnostic Results: Lab Results 01/17/17 06:00: Triglycerides 106, Cholesterol 249 H, LDL Cholesterol Direct 164 H, HDL Cholesterol 64 H 01/17/17 06:00: RPR Nonreactive 01/17/17 06:00: Free T4 0.86, TSH 3rd Generation 1.62 Vital Signs Temp Pulse Resp BP 01/18/17 07:13 97.5 F L 63 20 131/62 01/17/17 16:00 89 123/70 01/17/17 07:16 97.5 F L 62 20 145/70 01/16/17 18:23 98.4 F 79 18 129/74 Temp Pulse Resp BP Pulse Ox 97.6 F 78 16 110/65 01/19/17 09:36 01/19/17 09:36 01/19/17 09:36 01/19/17 09:36 DSM 5 Symptoms Update: Patient is a 86 yo WF with history of depression and anxiety, two previous psychiatric admissions February 2016, March 2016 to this facility, no h/o suicidal attempts, multiple medical issues, pt was initially admitted on the medical floor s/p syncopal episode, pt was found to have UTI and dehydration, psychiatric consult was called for worsening of depressive and anxiety symptoms. pt was compliant with medications and follow up appts but still was not functioning well. Pt needs further evaluation and observation, medication management. pt was seen today at am in her room, personal hygiene is much better, less anxious, pt said "I feel 2% better today, I have some hopes now", pt said prior to come to the hospital "I was wondering how people could kill themselves?, I could not do that, but I wanted to be , but it is against my voodoo". pt said UTI symptoms are better, no diarrhea. pt was educated about her current medications and tx plan. as per staff pt is less needy, pleasant, but still prefer to stay in her room. pt tolerated meds well, no side effects observed or reported, AIMS 0, no EPS. Impression: MDD SHAHEEN panic disorder adjustment d/o with depressed an anxious mood. Medication Change: Yes (prozac decreased, paxil increased) Medical Record Reviewed: Yes Consults ordered or reviewed: medical consult appreciated for UTI, pt is on abx Mental Status Examination - Cognitive Function Orientation: Person, Place, Situation, Time Memory: Intact Attention: Poor Concentration: Poor Association: WNL Fund of Knowledge: WNL - Mood Mood: Depressed ("I feel 2% better"), Anxious - Affect Affect: Blunted, Flat - Formal Thought Process Formal Thought Process: No Impairment - Suicidal Ideation Suicidal Ideation: No - Homicidal Ideation Homicidal Ideation: No Goal/Treatment Plan - Goal/Treatment Plan Need for Continued Stay: Remain at risks for inpatient hospitalization, Severe depression anxiety, Discharge may exacerbated symptoms Progress Toward Problem(s) and Goals/Treatment Plan: milieu, structure, supportive therapy Prozac will be decreased to 10 mg a day with the plan to taper that down Paxil 30mg at the nighttime with a plan to titrate up accordingly We'll continue Remeron 30 mg at the nighttime for insomnia and depression We'll continue Klonopin 1 mg 4 times a day for now for anxiety Patient was seen by medical team, urinary tract infection is under control, 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
--- NOTE | 2017-01-20 09:07 | PCM.PYCHPN ---
Psychiatric Progress Note - Psychiatric Progress Note Patient seen today, length of contact: 25 min Patient Chief Complaint: "still depressed, feeling better" Problems Identified/Issues Discussed: I reviewed assessment and recent notes. Patient was interviewed at bedside. She is fairly groomed and oriented to circumstances. Patient is generally calm and cooperative during my questioning. Speech is wnl. Patient reports that she is still depressed but feeling a little better. Aware of treatment plan concerning her medications. Affect is a little anxious and I agree with nursing staff in that patient can be needy and repetitive at times. Overall her thought process is coherent. Patient is not hallucinating and delusions were not elicited during this initial interview. Patient denies any new pain or side effects. Complains of diarrhea, unchanged. There were no behavioral issues overnight. Diagnostic Results: MDD SHAHEEN panic disorder adjustment d/o with depressed an anxious mood. Medication Change: No ( ) Medical Record Reviewed: Yes (reports, labs, vitals, notes) Mental Status Examination - Cognitive Function Orientation: Person, Place, Situation, Time Memory: Intact Attention: Poor Concentration: Poor Association: WNL Fund of Knowledge: WNL - Mood Mood: Depressed (feel better), Anxious - Affect Affect: Blunted, Flat - Speech Speech: Appropriate - Formal Thought Process Formal Thought Process: No Impairment - Suicidal Ideation Suicidal Ideation: No - Homicidal Ideation Homicidal Ideation: No Goal/Treatment Plan - Goal/Treatment Plan Need for Continued Stay: Remain at risks for inpatient hospitalization, Severe depression anxiety, Discharge may exacerbated symptoms Progress Toward Problem(s) and Goals/Treatment Plan: * c/w current tx and plan * No new weekend labs * Vitals reviewed and noted below: Selected Entries 01/19/17 01/19/17 09:36 16:28 Temperature 97.6 F Pulse Rate 78 81 Respiratory 16 Rate Blood Pressure 110/65 132/64 Estimated Date of D/C: 01/26/17 (will monitor closely)
--- NOTE | 2017-01-21 08:29 | PCM.PYCHPN ---
Psychiatric Progress Note - Psychiatric Progress Note Patient seen today, length of contact: 25 min Patient Chief Complaint: "still depressed, feeling better" Problems Identified/Issues Discussed: I reviewed recent notes and patient was interviewed at bedside. She is fairly groomed and oriented to circumstances. Patient remains calm and cooperative during my questioning. Speech is wnl. Patient reports that she is still depressed but feeling "2% better with Paxil" Feels her bouts of diarrhea are affecting her mood. Patient reports hesitancy to continue the antibiotics for her UTI. She feels the antibiotics are causing her diarrhea. Her affect is still a little anxious and I agree with nursing staff in that patient can be needy and repetitive at times. This seems a little improved today. Overall her thought process is coherent. Patient is not hallucinating and delusions were not elicited over the weekend by this provider. Patient denies any new pain or side effects. Staff notes indicate that patient appears to be improving, attending and participating in groups. Remains attention-seeking. There were no major behavioral issues over the weekend. Diagnostic Results: MDD SHAHEEN panic disorder adjustment d/o with depressed an anxious mood. Medication Change: No ( ) Medical Record Reviewed: Yes (reports, labs, vitals, notes) Mental Status Examination - Cognitive Function Orientation: Person, Place, Situation, Time Memory: Intact Attention: Poor Concentration: Poor Association: WNL Fund of Knowledge: WNL - Mood Mood: Depressed (feel better), Anxious - Affect Affect: Blunted, Flat - Speech Speech: Appropriate - Formal Thought Process Formal Thought Process: No Impairment - Suicidal Ideation Suicidal Ideation: No - Homicidal Ideation Homicidal Ideation: No Goal/Treatment Plan - Goal/Treatment Plan Need for Continued Stay: Remain at risks for inpatient hospitalization, Severe depression anxiety, Discharge may exacerbated symptoms Progress Toward Problem(s) and Goals/Treatment Plan: * c/w current tx and plan * Will have medicine f/u with patient about her c/o diarrhea * No new weekend labs * Vitals reviewed and noted below: Selected Entries 01/21/17 07:02 Temperature 97.6 F Pulse Rate 61 Respiratory 17 Rate Blood Pressure 119/62 Estimated Date of D/C: 01/26/17 (will monitor closely)
[2017-01-21] MEDS ORDERED: Benzocaine/Menthol (Cepacol) Lozenge MT PRN (13:06)
--- NOTE | 2017-01-22 16:06 | PCM.PYCHPN ---
Psychiatric Progress Note - Psychiatric Progress Note Patient seen today, length of contact: 30min Patient Chief Complaint: "my daughter is very sick now and it is all because of me, I have no choice but to get better". Problems Identified/Issues Discussed: Suicide/ homicide prevention, past psychiatric h/o, current psychiatric symptoms , medical problems, risk/benefits and alternatives of medications, medications compliance, coping strategies, substance abuse h/o, relapse prevention, importance of follow up with psychiatrist and therapist, discharge plan. Medical Problems: UTI, dehydration, osteoarthritis and dyslipidemia Diagnostic Results: Lab Results 01/17/17 06:00: Triglycerides 106, Cholesterol 249 H, LDL Cholesterol Direct 164 H, HDL Cholesterol 64 H 01/17/17 06:00: RPR Nonreactive 01/17/17 06:00: Free T4 0.86, TSH 3rd Generation 1.62 Vital Signs Temp Pulse Resp BP 01/18/17 07:13 97.5 F L 63 20 131/62 01/17/17 16:00 89 123/70 01/17/17 07:16 97.5 F L 62 20 145/70 01/16/17 18:23 98.4 F 79 18 129/74 Temp Pulse Resp BP Pulse Ox 97.6 F 78 16 110/65 01/19/17 09:36 01/19/17 09:36 01/19/17 09:36 01/19/17 09:36 Temp Pulse Resp BP Pulse Ox 97.8 F 80 18 101/53 L 01/22/17 06:41 01/22/17 15:52 01/22/17 06:41 01/22/17 15:52 DSM 5 Symptoms Update: Patient is a 86 yo WF with history of depression and anxiety, two previous psychiatric admissions February 2016, March 2016 to this facility, no h/o suicidal attempts, multiple medical issues, pt was initially admitted on the medical floor s/p syncopal episode, pt was found to have UTI and dehydration, psychiatric consult was called for worsening of depressive and anxiety symptoms. pt was compliant with medications and follow up appts but still was not functioning well. Pt needs further evaluation and observation, medication management. pt was seen today at the treatment team room, pt reported some improvement with her mood "I think Paxil works little better...", pt said that she feels "too much medications", this policy writer sales offered to decrease klonopin, pt was in agreement with that. Pt still "cannot understand why my grandson is not returning my calls, I emailed him, I called him, I texted him, I cannot understand, he did not contact us for the past 15 months, I was the one who raised him...". pt still feels very anxious abut future "I hope that he will call me one day...". pt also reported that she feels "very guilty that I destroyed my daughter, she is very sick now and it is all because of me, I need to get better...", pt then became tearful. pt was educated about her current medications and tx plan. as per staff pt is less needy, pleasant, but still prefer to stay in her room. pt tolerated meds well, no side effects observed or reported, AIMS 0, no EPS. Impression: MDD SHAHEEN panic disorder adjustment d/o with depressed an anxious mood. Medication Change: Yes (paxil increased, prozac d/c, klonopin was decreased) Medical Record Reviewed: Yes (reports, labs, vitals, notes) Consults ordered or reviewed: medical consult appreciated for UTI, pt is on abx Mental Status Examination - Cognitive Function Orientation: Person, Place, Situation, Time Memory: Intact Attention: Poor (some improvement) Concentration: Poor (some improvement) Association: WNL Fund of Knowledge: WNL - Mood Mood: Depressed ("my heart is broken"), Anxious - Affect Affect: Blunted, Flat - Speech Speech: Appropriate - Formal Thought Process Formal Thought Process: No Impairment - Suicidal Ideation Suicidal Ideation: No - Homicidal Ideation Homicidal Ideation: No Goal/Treatment Plan - Goal/Treatment Plan Need for Continued Stay: Remain at risks for inpatient hospitalization, Severe depression anxiety, Discharge may exacerbated symptoms Progress Toward Problem(s) and Goals/Treatment Plan: milieu, structure, supportive therapy Prozac was d/c today Paxil 30mg at the nighttime with a plan to titrate up accordingly We'll continue Remeron 30 mg at the nighttime for insomnia and depression we will decrease Klonopin 1 mg to tid a day for now for anxiety Patient was seen by medical team, urinary tract infection is under control, 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
--- NOTE | 2017-01-22 23:40 | CP.PCM.PN ---
Subjective - Date & Time of Evaluation Date of Evaluation: 01/20/17 Time of Evaluation: 11:00 - Subjective Subjective: Complaining of fear of developing diarrhea. She did not have any loose stools. 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 She is on ampicillin for enterococus UTI. She is asking to stop antibiotics. No abdominal pain. Objective - Vital Signs/Intake and Output Vital Signs (last 24 hours): Temp Pulse Resp BP Pulse Ox 97.8 F 80 18 101/53 L 01/22/17 06:41 01/22/17 15:52 01/22/17 06:41 01/22/17 15:52 - Medications Medications: Current Medications Acetaminophen (Tylenol 325mg Tab) 650 mg PO Q4 PRN PRN Reason: Pain, Mild (1-3) Al Hydrox/Mg Hydrox/Simethicone (Maalox Plus 30 Ml) 30 ml PO DAILY PRN PRN Reason: Upset Stomach Last Admin: 01/16/17 19:51 Dose: 30 ml Ampicillin (Ampicillin) 500 mg PO QID [facility] PRN Reason: Protocol Stop: 01/24/17 13:01 Last Admin: 01/22/17 21:06 Dose: 500 mg Benzocaine/Menthol (Cepacol Sore Throat) 1 sapna MT Q2H PRN PRN Reason: Sore Throat Bismuth Subsalicylate (Pepto-Bismol) 262 mg PO Q6 PRN PRN Reason: Diarrhea Last Admin: 01/17/17 09:46 Dose: 262 mg Clonazepam (Klonopin) 1 mg PO 0800,1400,1800 [facility] PRN Reason: Protocol Last Admin: 01/22/17 17:32 Dose: 1 mg Loperamide HCl (Imodium) 2 mg PO QID PRN PRN Reason: Diarrhea Last Admin: 01/20/17 16:03 Dose: 2 mg Magnesium Hydroxide (Milk Of Magnesia) 30 ml PO Q6 PRN PRN Reason: Constipation Metronidazole (Flagyl) 500 mg PO Q8 [facility] PRN Reason: Protocol Stop: 01/24/17 17:16 Last Admin: 01/22/17 21:06 Dose: 500 mg Mirtazapine (Remeron) 30 mg PO [facility] Last Admin: 01/22/17 21:06 Dose: 30 mg Paroxetine HCl (Paxil) 30 mg PO HS [facility] Last Admin: 01/22/17 21:06 Dose: 30 mg - Constitutional Appears: Well, Non-toxic - Head Exam Head Exam: ATRAUMATIC, NORMAL INSPECTION, NORMOCEPHALIC - Eye Exam Eye Exam: Normal appearance Pupil Exam: NORMAL ACCOMODATION - ENT Exam ENT Exam: Mucous Membranes Moist - Neck Exam Neck Exam: Normal Inspection - Respiratory Exam Respiratory Exam: Clear to Ausculation Bilateral, NORMAL BREATHING PATTERN - Cardiovascular Exam Cardiovascular Exam: REGULAR RHYTHM, +S1, +S2 - GI/Abdominal Exam GI & Abdominal Exam: Soft, Normal Bowel Sounds - Back Exam Back Exam: NORMAL INSPECTION - Neurological Exam Neurological Exam: Awake, Normal Gait, Oriented x3 - Psychiatric Exam Psychiatric exam: Flat Affect - Skin Skin Exam: Dry, Intact, Normal Color Assessment and Plan - Assessment and Plan (Free Text) Assessment: 1. UTI 2. Anxiety 3. Lymphocytosis, monocytosis 4. osteoarthritis Plan : continue ampicillin for enterococus UTI. She is on flagyl for C-diff colitis prophylaxis Anxiety ; management as per Psych team. Blood counts stable. OA- no issues.
--- NOTE | 2017-01-22 23:44 | CP.PCM.PN ---
Subjective - Date & Time of Evaluation Date of Evaluation: 01/21/17 Time of Evaluation: 12:00 - Subjective Subjective: No complaints today. No diarrhea. No chest pain. No events overnight. Objective - Vital Signs/Intake and Output Vital Signs (last 24 hours): Temp Pulse Resp BP Pulse Ox 97.8 F 80 18 101/53 L 01/22/17 06:41 01/22/17 15:52 01/22/17 06:41 01/22/17 15:52 - Medications Medications: Current Medications Acetaminophen (Tylenol 325mg Tab) 650 mg PO Q4 PRN PRN Reason: Pain, Mild (1-3) Al Hydrox/Mg Hydrox/Simethicone (Maalox Plus 30 Ml) 30 ml PO DAILY PRN PRN Reason: Upset Stomach Last Admin: 01/16/17 19:51 Dose: 30 ml Ampicillin (Ampicillin) 500 mg PO QID [facility] PRN Reason: Protocol Stop: 01/24/17 13:01 Last Admin: 01/22/17 21:06 Dose: 500 mg Benzocaine/Menthol (Cepacol Sore Throat) 1 sapna MT Q2H PRN PRN Reason: Sore Throat Bismuth Subsalicylate (Pepto-Bismol) 262 mg PO Q6 PRN PRN Reason: Diarrhea Last Admin: 01/17/17 09:46 Dose: 262 mg Clonazepam (Klonopin) 1 mg PO 0800,1400,1800 [facility] PRN Reason: Protocol Last Admin: 01/22/17 17:32 Dose: 1 mg Loperamide HCl (Imodium) 2 mg PO QID PRN PRN Reason: Diarrhea Last Admin: 01/20/17 16:03 Dose: 2 mg Magnesium Hydroxide (Milk Of Magnesia) 30 ml PO Q6 PRN PRN Reason: Constipation Metronidazole (Flagyl) 500 mg PO Q8 [facility] PRN Reason: Protocol Stop: 01/24/17 17:16 Last Admin: 01/22/17 21:06 Dose: 500 mg Mirtazapine (Remeron) 30 mg PO HS [facility] Last Admin: 01/22/17 21:06 Dose: 30 mg Paroxetine HCl (Paxil) 30 mg PO HS [facility] Last Admin: 01/22/17 21:06 Dose: 30 mg - Constitutional Appears: Well, Non-toxic - Head Exam Head Exam: ATRAUMATIC, NORMAL INSPECTION, NORMOCEPHALIC - Eye Exam Eye Exam: Normal appearance Pupil Exam: NORMAL ACCOMODATION - Neck Exam Neck Exam: Normal Inspection - Respiratory Exam Respiratory Exam: Clear to Ausculation Bilateral, NORMAL BREATHING PATTERN - Cardiovascular Exam Cardiovascular Exam: REGULAR RHYTHM, +S1, +S2 - Back Exam Back Exam: NORMAL INSPECTION - Neurological Exam Neurological Exam: Alert, Awake, CN II-XII Intact, Normal Gait, Oriented x3 - Psychiatric Exam Psychiatric exam: Normal Affect, Normal Mood - Skin Skin Exam: Dry, Normal Color, Warm Assessment and Plan - Assessment and Plan (Free Text) Assessment: 1. Anxiety : mgm as per primary team. 2. Enterococus UTI : continue amoxicillin. Continue prophylactic flagyl. 3. OA - no issues. 4. Blood counts stable. 5. renal : stable chemistries.
[2017-01-23 07:31] VITALS: RESP 20
--- NOTE | 2017-01-23 15:02 | PCM.PYCHPN ---
Psychiatric Progress Note - Psychiatric Progress Note Patient seen today, length of contact: 30min Patient Chief Complaint: "my daughter is very sick now she is very depressed, it is all because of me". Problems Identified/Issues Discussed: Suicide/ homicide prevention, past psychiatric h/o, current psychiatric symptoms , medical problems, risk/benefits and alternatives of medications, medications compliance, coping strategies, substance abuse h/o, relapse prevention, importance of follow up with psychiatrist and therapist, discharge plan. Medical Problems: UTI, dehydration, osteoarthritis and dyslipidemia Diagnostic Results: Lab Results 01/17/17 06:00: Triglycerides 106, Cholesterol 249 H, LDL Cholesterol Direct 164 H, HDL Cholesterol 64 H 01/17/17 06:00: RPR Nonreactive 01/17/17 06:00: Free T4 0.86, TSH 3rd Generation 1.62 Vital Signs Temp Pulse Resp BP 01/18/17 07:13 97.5 F L 63 20 131/62 01/17/17 16:00 89 123/70 01/17/17 07:16 97.5 F L 62 20 145/70 01/16/17 18:23 98.4 F 79 18 129/74 Temp Pulse Resp BP Pulse Ox 97.6 F 78 16 110/65 01/19/17 09:36 01/19/17 09:36 01/19/17 09:36 01/19/17 09:36 Temp Pulse Resp BP Pulse Ox 97.8 F 80 18 101/53 L 01/22/17 06:41 01/22/17 15:52 01/22/17 06:41 01/22/17 15:52 Temp Pulse Resp BP Pulse Ox 98 F 66 20 124/59 L 01/23/17 07:30 01/23/17 07:30 01/23/17 07:30 01/23/17 07:30 DSM 5 Symptoms Update: Patient is a 86 yo WF with history of depression and anxiety, two previous psychiatric admissions February 2016, March 2016 to this facility, no h/o suicidal attempts, multiple medical issues, pt was initially admitted on the medical floor s/p syncopal episode, pt was found to have UTI and dehydration, psychiatric consult was called for worsening of depressive and anxiety symptoms. pt was compliant with medications and follow up appts but still was not functioning well. Pt needs further evaluation and observation, medication management. pt was seen today at the hallway, pt reported some improvement with her mood "I think Paxil works little better...", pt said that she feels more anxious after Klonopin decreased but still want to have decreased dose to be continued. Pt reported that her sleep is improving. Pt still feels guilty about her symptoms and inability to function. pt was educated about her current medications and tx plan. as per staff pt is less needy, pleasant, started to go to groups. pt tolerated meds well, no side effects observed or reported, AIMS 0, no EPS. Impression: MDD SHAHEEN panic disorder adjustment d/o with depressed an anxious mood. Medication Change: Yes (adjusted yesterday) Medical Record Reviewed: Yes (reports, labs, vitals, notes) Consults ordered or reviewed: medical consult appreciated for UTI, pt is on abx Mental Status Examination - Cognitive Function Orientation: Person, Place, Situation, Time Memory: Intact Attention: Poor (some improvement) Concentration: Poor (some improvement) Association: WNL Fund of Knowledge: WNL - Mood Mood: Depressed ("I feel little better"), Anxious - Affect Affect: Blunted, Flat - Speech Speech: Appropriate - Formal Thought Process Formal Thought Process: No Impairment - Suicidal Ideation Suicidal Ideation: No - Homicidal Ideation Homicidal Ideation: No Goal/Treatment Plan - Goal/Treatment Plan Need for Continued Stay: Remain at risks for inpatient hospitalization, Severe depression anxiety, Discharge may exacerbated symptoms Progress Toward Problem(s) and Goals/Treatment Plan: milieu, structure, supportive therapy Prozac was d/c 01/22/17 Paxil 30mg at the nighttime with a plan to titrate up accordingly We'll continue Remeron 30 mg at the nighttime for insomnia and depression we will decrease Klonopin 1 mg to tid a day for now for anxiety Patient was seen by medical team, urinary tract infection is under control, patient is on antibiotics ash worker evaluation Collateral information from patient and daughter Saige appreciated 01/26/2017 Physical therapy evaluation We'll monitor closely Estimated Date of D/C: 01/26/17 (will monitor closely)
--- NOTE | 2017-01-24 16:03 | PCM.PYCHPN ---
Psychiatric Progress Note - Psychiatric Progress Note Patient seen today, length of contact: 30min Patient Chief Complaint: "I feel little better" Problems Identified/Issues Discussed: Suicide/ homicide prevention, past psychiatric h/o, current psychiatric symptoms , medical problems, risk/benefits and alternatives of medications, medications compliance, coping strategies, substance abuse h/o, relapse prevention, importance of follow up with psychiatrist and therapist, discharge plan. Medical Problems: UTI, dehydration, osteoarthritis and dyslipidemia Diagnostic Results: Lab Results 01/17/17 06:00: Triglycerides 106, Cholesterol 249 H, LDL Cholesterol Direct 164 H, HDL Cholesterol 64 H 01/17/17 06:00: RPR Nonreactive 01/17/17 06:00: Free T4 0.86, TSH 3rd Generation 1.62 Vital Signs Temp Pulse Resp BP 01/18/17 07:13 97.5 F L 63 20 131/62 01/17/17 16:00 89 123/70 01/17/17 07:16 97.5 F L 62 20 145/70 01/16/17 18:23 98.4 F 79 18 129/74 Temp Pulse Resp BP Pulse Ox 97.6 F 78 16 110/65 01/19/17 09:36 01/19/17 09:36 01/19/17 09:36 01/19/17 09:36 Temp Pulse Resp BP Pulse Ox 97.8 F 80 18 101/53 L 01/22/17 06:41 01/22/17 15:52 01/22/17 06:41 01/22/17 15:52 Temp Pulse Resp BP Pulse Ox 98 F 66 20 124/59 L 01/23/17 07:30 01/23/17 07:30 01/23/17 07:30 01/23/17 07:30 Temp Pulse Resp BP Pulse Ox 98.1 F 76 20 130/64 01/24/17 07:12 01/24/17 07:12 01/24/17 07:12 01/24/17 07:12 DSM 5 Symptoms Update: Patient is a 86 yo WF with history of depression and anxiety, two previous psychiatric admissions February 2016, March 2016 to this facility, no h/o suicidal attempts, multiple medical issues, pt was initially admitted on the medical floor s/p syncopal episode, pt was found to have UTI and dehydration, psychiatric consult was called for worsening of depressive and anxiety symptoms. pt was compliant with medications and follow up appts but still was not functioning well. Pt needs further evaluation and observation, medication management. pt was seen today at the treatment team meeting pt reported some improvement with her mood "I think Paxil works little better, I am glad you discontinue Klonopin one dose...", pt said that today she feels calmer (of note pt was feeling anxious yesterday). pt reported to have fair appetite and sleep, pt said she gain 6Lb. Supportive therapy provided, CBT techniques, pt was receptive. Pt still feels more hopeful now. today this wrier had prolonged conversation, as per daughter "seems my mom doing little better", at the same time pt's daughter put a lot of pressure on the pt said "I said her that she has only last chance to get better...", pt's daughter was educated that pt needs to be f/u with therapist and psychiatrist and she needs to be f/u by psychiatric team, and needs to have a lot of support , of note pt's daughter is victim of violence/rape and has anxiety symptoms too. pt tolerated meds well, no side effects observed or reported, AIMS 0, no EPS. Impression: MDD SHAHEEN panic disorder adjustment d/o with depressed an anxious mood. Medication Change: No (abx stopped) Medical Record Reviewed: Yes (reports, labs, vitals, notes) Consults ordered or reviewed: medical consult appreciated for UTI, pt is on abx Mental Status Examination - Cognitive Function Orientation: Person, Place, Situation, Time Memory: Intact Attention: Poor (some improvement) Concentration: Poor (some improvement) Association: WNL Fund of Knowledge: WNL - Mood Mood: Depressed ("I feel little better"), Anxious - Affect Affect: Constricted (but more reactive) - Speech Speech: Appropriate - Formal Thought Process Formal Thought Process: No Impairment - Suicidal Ideation Suicidal Ideation: No - Homicidal Ideation Homicidal Ideation: No Goal/Treatment Plan - Goal/Treatment Plan Need for Continued Stay: Remain at risks for inpatient hospitalization, Severe depression anxiety, Discharge may exacerbated symptoms Progress Toward Problem(s) and Goals/Treatment Plan: milieu, structure, supportive therapy Prozac was d/c 01/22/17 Paxil 30mg at the nighttime with a plan to titrate up accordingly We'll continue Remeron 30 mg at the nighttime for insomnia and depression Klonopin 1 mg to tid a day for now for anxiety Patient was seen by medical team, urinary tract infection is under control, 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
--- NOTE | 2017-01-25 15:06 | PN ---
DATE: 01/25/2017 Shortly, the patient is an 86-year-old female with long history of depression as well as an xiety. The patient was admitted on the psychiatric inpatient unit for worsening of anxiety, depressi on and inability to function. Please see my initial note for more detailed information. The patient was seen today at the dining area. The patient presented to have better personal hygiene. Wears ni ce clothes. The patient also combed her hair. Seems to start having improvement with her hygiene as well as overall presentation. The patient reported that she likes combination of the medication, wh ich she is currently on. The patient has transient anxiety. The patient responded well to CBT thera py. The patient reported that she feels better. At the same time, patient tolerates medications wel l, feeling anxious mildly. This speech writer thinks that patient is improving and will be ready for discha rge tomorrow. The patient asked for 1 month supply of the medications and the patient asked this wri ter to fax over prescriptions to [facility] and it will be delivered to her within 1 month. We will definitely do so. As per nursing report, the patient is calm, cooperative, started to go to groups, less anxious. The patient gained some weight while she was in the hospital. The patient also less needy and demanding. Overall, patient is improving. MENTAL STATUS EXAMINATION: The patient presented to be alert and oriented, pleasant, cooperative. F air eye contact. Speech was normal rate, tone, quality, and quantity. Mood described "I think that I am better." Affect was constricted, but reactive. Mood congruent. Thought process was coherent a nd goal directed. Thought content: The patient denied visual, auditory, tactile hallucinations. Den ied paranoid ideation. The patient does not present to be psychotic. Insight and judgment are fair. Impulses are well controlled. IMPRESSION: Major depressive disorder, generalized anxiety disorder, panic disorder. The patient al so had urinary tract infection which was treated with antibiotics. PLAN: Milieu structure and supportive therapy. The patient is improving. The patient tolerates med ications well. No side effects observed or reported. The patient will be discharged tomorrow with a ll of her current medications: Paxil 30 mg at the nighttime, Remeron 30 mg at the nighttime, Klonopi n was decreased to 1 mg 3 times a day. The patient tolerated decreased dose well. The patient will be referred either to Dr. Almaguer or Dr. Pompa. Will follow up with the patient's daughter. Disc ussed with the daughter yesterday. Karo Smiley MD cc: [phone] TT: 01/25/2017 14:45:50 Confirmation # [id number] Dictation # [id number] rn
[2017-01-25 22:13] VITALS: O2SAT 78
[2017-01-26 07:13] VITALS: BP 108/69; PULSE 65; TEMP 98
--- NOTE | 2017-02-02 16:26 | PCM.PYCHDC ---
Mental Status Examination - Mental Status Examination Orientation: Person, Place, Situation, Time Memory: Intact Mood: Neutral Affect: Constricted (but reactive mood congruent) Speech: Appropriate Attention: WNL Concentration: WNL Association: WNL Fund of Knowledge: WNL Formal Thought Process: No Impairment Description of patient's judgement and insight: Pt has improved insight into mental and medical illness, pt was compliant with medications and unit rules and regulations, pt was going to groups, was calm, cooperative, socially appropriate, no behavioral incidents, no agitation, no aggression. Psychotic Thoughts and Behaviors: Pt denied v/a/t hallucinations, denied paranoid ideations, pt does not appear to be psychotic, and thought process is goal directed. Suicidal Ideation: No Current Homicidal Ideation?: No Plan: pt adamantly denied thoughts of harming self or others denied intent or plan. Discharge Summary - Discharge Note Reason for Hospitalization: patient was admitted to the psychiatric inpatient unit for evaluation and stabilization of worsening depressive symptoms, anxiety symptoms, inability to function. Psychiatric History (includes Medical, Family, Personal Hx): see HPI Laboratory Data: Lab Results 01/17/17 06:00: Triglycerides 106, Cholesterol 249 H, LDL Cholesterol Direct 164 H, HDL Cholesterol 64 H 01/17/17 06:00: RPR Nonreactive 01/17/17 06:00: Free T4 0.86, TSH 3rd Generation 1.62 Vital Signs Temp Pulse Resp BP Pulse Ox 01/26/17 07:12 98.0 F 65 20 108/69 01/25/17 22:10 101/57 L 78 L 01/24/17 16:47 77 111/70 01/24/17 07:12 98.1 F 76 20 130/64 01/23/17 16:00 79 119/75 01/23/17 07:30 98 F 66 20 124/59 L 01/22/17 15:52 80 101/53 L 01/22/17 06:41 97.8 F 65 18 118/61 01/21/17 16:00 94 H 127/62 01/21/17 07:02 97.6 F 61 17 119/62 01/20/17 16:36 81 108/56 L 01/20/17 07:36 97.5 F L 66 20 110/54 L 01/20/17 07:35 97.5 F L 66 20 99/56 L 01/19/17 16:28 81 132/64 01/19/17 09:36 97.6 F 78 16 110/65 01/18/17 16:00 78 126/71 01/18/17 07:13 97.5 F L 63 20 131/62 01/17/17 16:00 89 123/70 01/17/17 07:16 97.5 F L 62 20 145/70 01/16/17 18:23 98.4 F 79 18 129/74 Consultations:: List each consultation separately and include: 1. Reason for request. 2. Findings. 3. Follow-up Consultations: medical consult appreciated for UTI, pt is on abx, hen on Flagyl medically patient improved significantly Summary of Hospital Course include:: 1. Description of specific treatment plan utilized for patients during their course of treatmen. 2. Summarize the time- course for resolution of acute symptoms and/or regressed behaviors. 3. Describe issues identified and worked on during hospitalization. 4. Describe medication utilized. 5. Describe medical problems identified and treated. 6. Reassessment of suicide risk Summary of Hospital Course: Patient is a 86 yo WF with history of depression and anxiety, two previous psychiatric admissions February 2016, March 2016 to this facility, no h/o suicidal attempts, multiple medical issues, pt was initially admitted on the medical floor s/p syncopal episode, pt was found to have UTI and dehydration, psychiatric consult was called for worsening of depressive and anxiety symptoms. pt was compliant with medications and follow up appts but still was not functioning well. Pt needs further evaluation and observation, medication management. initially pt presented to be anxious, tremolos, seems lost a lot of weight. pt seems to be careless about her appearance, fair ADLs, good hygiene. Pt said that her grandson whom she raised is not returning family calls for the past 15months. Pt said that this is her main stress and "my heart is broken", pt has difficulties to accept the fact that he and his daughter is "not in my life anymore", pt was keep calling her grandson and leaving his messages but " he never return our phone calls". Pt said that this situation is making her feel "hopeless and depressed", pt said that she had difficulties to fall and stay asleep, pt was having panic attacks, was keep asking her daughter "to sleep with me, I am very scared", as per pt's daughter collaterals pt was not letting her to leave the house, if pt's daughter needs to work on computer and leave the room pt was calling 911 and was saying that she is dying. pt also was feeling anxious and had panic attacks. pt also lost approximately 20Lb unintentionally for the past two months "I did not feel like eating". pt denied v/a/t hallucinations, denied paranoid ideation, pt does not present psychotic. pt was on prozac 40mg and klonopin 1mg four times a day, Remeron 30mg at night, by dr Pompa, confirmed by daughter. pt wants meds to be changed, was educated about effexor and paxil, pt was on effexor before but for unknown reason it was d/c, will try paxil for now. Past psych h/o: pt had two previous admissions to this unit in 2015 and march, no suicidal attempts. Medical h/o: currently UTI, h/o cdiff, s/p fall, dehydration, was seen by , consult appreciated. Family h/o: pt's daughter suffers from anxiety, ptsd, stable on cymbalta, pt was on cybalta before but it was not effective. Social: pt is a , lives with her daughter who is supportive. Lab Results 01/17/17 06:00: Triglycerides 106, Cholesterol 249 H, LDL Cholesterol Direct 164 H, HDL Cholesterol 64 H 01/17/17 06:00: Free T4 0.86, TSH 3rd Generation 1.62 Temp Pulse Resp BP Pulse Ox 97.5 F L 62 20 145/70 01/17/17 07:16 01/17/17 07:16 01/17/17 07:16 01/17/17 07:16 over the course of this hospitalization patient was stabilized on the following medications: Prozac was weaned off and finally d/c 01/22/17 Paxil was increased slowly to 30mg at the nighttime ffor depression and anxiety Remeron was continued 30 mg at the nighttime for insomnia and depression Klonopin was decreased to 1 mg to tid a day for now for anxiety atient was seen by medical team, urinary tract infection better, patient completed course of antibiotics. This brief writer discussed case with patient and daughter Saige, family was involved. Patient improved significantly, depression was under control, anxiety was under control, sleep improved, appetite improved. Patient was receptive to CBT therapy. Over the course of this hospitalization pt was attending groups, pt also had medication management, had therapeutic milieu. Overall pt improved significantly, pt's affect became brighter, pt was less depressed, has realistic future oriented plans, pt also does not appear to be psychotic, or anxious, pt was socially appropriate, no behavioral issues, pts insight improved as well and soon pt deemed to be ready for discharge. At the time of the discharge pt denied been depressed, denied thoughts of harming self or others, denied psychotic symptoms, and pt does not appeared to be psychotic, denied been anxious, was considered to pose no threat to self or others, will be following up at dr. Walden's office, information about follow up appointment, time and address provided to the pt, it is patient responsibility to follow up with outpatient clinic, PMD as well as specialists ( see SW note for more detailed information). In case pt will need to obtain results of studies pending at discharge pt was provided with contact information of Psychiatric Inpatient unit [phone] as well as Medical Record Department [phone]. patient was provided with a month supply of medications This brief writer also gave prescription for all of her current medications in order to fax over to the [employer] services, off note patient has the age benefits because patient was a . pt was provided with prescriptions for all of medications (please see medication reconciliation form) Pt was educated about safety plan in case of worsening of symptoms or in case of suicidal or homicidal ideation call 911 or go to the nearest ER, also was educated to take meds as prescribed and stay away from drugs, pt verbalized understanding. - Diagnosis (1) SHAHEEN (generalized anxiety disorder) Status: Acute (2) MDD (major depressive disorder) Status: Acute (3) Panic disorder Status: Acute (4) Urinary tract infection Status: Acute - Final Diagnosis (DSM 5) Condition upon Discharge: GOOD Disposition: HOME/ ROUTINE Follow-up Treatment Plan: At the time of the discharge pt denied been depressed, denied thoughts of harming self or others, denied psychotic symptoms, and pt does not appeared to be psychotic, denied been anxious, was considered to pose no threat to self or others, will be following up at dr. Walden's office, information about follow up appointment, time and address provided to the pt, it is patient responsibility to follow up with outpatient clinic, PMD as well as specialists ( see SW note for more detailed information). In case pt will need to obtain results of studies pending at discharge pt was provided with contact information of Psychiatric Inpatient unit [phone] as well as Medical Record Department [phone]. patient was provided with a month supply of medications This brief writer also gave prescription for all of her current medications in order to fax over to the [employer] services, off note patient has the age benefits because patient was a . pt was provided with prescriptions for all of medications (please see medication reconciliation form) Pt was educated about safety plan in case of worsening of symptoms or in case of suicidal or homicidal ideation call 911 or go to the nearest ER, also was educated to take meds as prescribed and stay away from drugs, pt verbalized understanding. Prescriptions/Medication Reconciliation: clonazePAM [Klonopin] 1 mg PO 0800,1400,1800 #90 tab Mirtazapine [Remeron] 30 mg PO HS #30 tab PARoxetine [Paxil] 30 mg PO HS #90 tab - Smoking Cessation Smoking Cessation Medication prescribed: No Reason for not providing: doesn't smoke - Antipsychotic Medications Pt discharged on 2 or more routine antipsychotic medications: No
== END 2017-01-26 14:20 | disposition home or self-care (01) | DRG 881 ==
LOC: PSYC 17:30
PROVIDERS: ADMIT Psychiatry & Neurology Psychiatry; ATTEND Psychiatry & Neurology Psychiatry
PROC: GZ3ZZZZ Medication Management (ICD-10-PCS; principal; 2017-01-16)
DX: F32.9 Major depressive disorder, single episode, unspecified (principal); F41.1 Generalized anxiety disorder; F40.01 Agoraphobia with panic disorder; N39.0 Urinary tract infection, site not specified; B95.2 Enterococcus as the cause of diseases classified elsewhere; E78.5 Hyperlipidemia, unspecified; G47.00 Insomnia, unspecified; M19.90 Unspecified osteoarthritis, unspecified site; R19.7 Diarrhea, unspecified

== ENCOUNTER 2017-09-16 10:39 | Inpatient (IN) | payer MEDICARE, OTHER ==
[2017-09-16 11:22] LABS: HEMOGLOBIN 10.4 g/dL (12.0-16.0); MEAN CELL VOLUME 97.5 fl (80.0-105.0); MEAN CORPUSCULAR HEMOGLOBIN 32.2 pg (25.0-35.0); RBC 3.23 10^6/uL (3.5-6.1); RED CELL DISTRIBUTION WIDTH 13.2 % (11.5-14.5); WHITE BLOOD COUNT 17.7 10^3/ul (4.5-11.0)
[2017-09-16 11:33] LABS: ALB/GLOB RATIO 0.9 (1.1-1.8); ALBUMIN 3.5 g/dL (3.0-4.8); ALT/SGPT 39 U/L (7-56); AST/SGOT 30 U/L (14-36); BLOOD UREA NITROGEN 20 mg/dL (7-21); CALCIUM 9.2 mg/dL (8.4-10.5); GFR AFRICAN-AMERICAN > 60; GFR NON-AFRICAN AMERICAN 52
[2017-09-16 11:35] LABS: URINE BILIRUBIN NEGATIVE (NEGATIVE); URINE BLOOD LARGE (NEGATIVE); URINE GLUCOSE (UA) NEGATIVE (NEGATIVE); URINE LEUKOCYTE ESTERASE MODERATE Leu/uL (NEGATIVE); URINE NITRATE POSITIVE (NEGATIVE); URINE PROTEIN 100 mg/dL (<30 mg/dL); URINE UROBILINOGEN 0.2 E.U./dL (<1 E.U./dL)
--- NOTE | 2017-09-16 11:37 | ED PDOC ---
Arrival/HPI - General Chief Complaint: Psychiatric Evaluation Time Seen by Provider: 09/16/17 10:47 Historian: Patient - History of Present Illness Narrative History of Present Illness (Text): 09/16/17 11:34 An 87 year old female, whose past medical history includes depression, presents to the emergency department complaining of feeling depressed. She states that she has been feeling this way because her grandson stopped visiting her. She notes that she has felt worthless and has difficulty remaining asleep. The patient denies fevers, chills, headache, dizziness, chest pain, shortness of breath, dyspnea on exertion, cough, abdominal pain, nausea, vomiting, diarrhea, back pain, neck pain, urinary/bowel changes, loss of appetite, suicidal/ homicidal ideation, auditory/visual hallucination or any other complaint. PMD: Dr. 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) - Renal Hx Renal Disorder: No - Endocrine/Metabolic Hx Endocrine Disorders: No - Hematological/Oncological Hx Blood Disorders: No Hx Cancer: No - Integumentary Hx Dermatological Disorder: Yes - Musculoskeletal/Rheumatological Hx Arthritis: Yes (L hand, low back) - Gastrointestinal Hx Gastrointestinal Disorders: Yes (C DIFF 09-04-12,IBS(IRRITABLE BOWEL SYNDROME )) Hx Diverticulitis: Yes - Genitourinary/Gynecological Hx Genitourinary Disorders: No Hx Sexually Transmitted Diseases: No Hx Urinary Tract Infection: Yes - Psychiatric Hx Anxiety: Yes Hx Depression: Yes Hx Substance Use: No - Past Surgical History Past Surgical History: Non-Contributing - Surgical History Hx Appendectomy: Yes - Anesthesia Hx Anesthesia: Yes Hx Anesthesia Reactions: No Hx Malignant Hyperthermia: No - Suicidal Assessment Feels Threatened In Home Enviroment: No Family/Social History - Physician Review Nursing Documentation Reviewed: Yes Family/Social History: No Known Family HX Smoking Status: Former Smoker Hx Alcohol Use: No Hx Substance Use: No Hx Substance Use Treatment: No Allergies/Home Meds Allergies/Adverse Reactions: Allergies tetracycline Allergy (Severe, Verified 09/16/17 11:29) ANAPHYLAXIS Review of Systems - Physician Review All systems were reviewed & negative as marked: Yes - Review of Systems Constitutional: absent: Fevers Cardiovascular: absent: Chest Pain Physical Exam - Physical Exam Narrative Physical Exam (Text): 09/16/17 11:37 Constitutional: No acute distress. Head: Normocephalic. Atraumatic. Eyes: PERRL. ENT: Moist mucous membranes. Neck: Supple. Cardiovascular: Tachycardic Chest: No tenderness. Respiratory: Clear to auscultation bilaterally. GI: Soft. Nontender. Nondistended. Back: No CVA tenderness. Musculoskeletal: No tenderness or swelling of extremities. Skin: No rash. Neurologic: Alert, no focal deficit. Vital Signs Reviewed: Yes Vital Signs Temp Pulse Resp BP Pulse Ox 09/16/17 10:50 98.7 F 108 H 20 134/76 95 Temperature: Afebrile Blood Pressure: Normal Pulse: Tachycardic Respiratory Rate: Normal Appearance: Positive for: Well-Appearing, Non-Toxic, Comfortable Pain Distress: None Mental Status: Positive for: Alert and Oriented X 3 Medical Decision Making ED Course and Treatment: 09/16/17 11:38 Impression: An 87 year old female presents to the emergency department complaining of feeling depressed because her grandson stopped visiting her. Plan: -- EKG -- Chest X-ray -- Urinalysis -- Urine Culture -- Klonopin -- Reassess and disposition Prior Visits: Notes and results from previous visits were reviewed. Patient was last seen in the emergency department on 01/15/2017. The patient was seen in the emergency department complaining of a syncopal episode. The patient was hospitalized. Progress Notes: EKG: Ordered, reviewed, and independently interpreted the EKG. Rate : 109 BPM Rhythm : NSR Interpretation : No ST elevations CHEST RADIOGRAPH, 1 VIEW Dictator : Richy Patiño MD Report Date : 09/16/2017 11:47:49 IMPRESSION: Left lower lobe infiltrate. Patient with UTI. Started Cefepime. CODE SEPSIS criteria not met. Patient states she must take Flagyl with any antibiotic because she is very susceptible to C diff. Daughter arrived, states Dr. Huddleston must be called due to patient's depressive thoughts. Daughter states patient has been saying she wishes to be with her . Daughter states she recently lost her son and grandchild as well. Dr. Floyd accepts patient to his service. Consult placed for Dr. Huddleston and PES worker called. - Lab Interpretations Lab Results: 09/16/17 11:00 09/16/17 11:00 Lab Results 09/16/17 12:10: pO2 49, VBG pH 7.34, VBG pCO2 51.0, VBG HCO3 27.5, VBG Total CO2 29.1 H, VBG O2 Sat (Calc) 86.8 H, VBG Base Excess 0.9, VBG Potassium 5.5 H, Glucose 109 H, Lactate 1.2, FiO2 21.0, Sodium 133.0, Chloride 100.0, Venous Blood Potassium 5.5 H 09/16/17 11:50: Alcohol, Quantitative < 10 09/16/17 11:50: Salicylates < 1 L, Acetaminophen < 10.0 L 09/16/17 11:40: Urine Opiates Screen Negative, Urine Methadone Screen Negative, Ur Barbiturates Screen Negative, Ur Phencyclidine Scrn Negative, Ur Amphetamines Screen Negative, U Benzodiazepines Scrn Negative, U Oth Cocaine Metabols Negative, U Cannabinoids Screen Negative 09/16/17 11:32: Urine Color Yellow, Urine Appearance Turbid, Urine pH 6.0, Ur Specific [place] 1.025, Urine Protein 100 H, Urine Glucose (UA) Negative, Urine Ketones Negative, Urine Blood Large H, Urine Nitrate Positive H, Urine Bilirubin Negative, Urine Urobilinogen 0.2, Ur Leukocyte Esterase Moderate H, Urine RBC 0 - 2, Urine WBC Tntc, Ur Epithelial Cells 0 - 2, Urine Bacteria Large 09/16/17 11:00: Sodium 136, Potassium Pending, Chloride 101, Carbon Dioxide 23, Anion Gap 17, BUN 20, Creatinine 1.0, Est GFR ( Amer) > 60, Est GFR (Non- Af Amer) 52, Random Glucose 115 H, Calcium 9.2, Total Bilirubin 0.6, AST 30, ALT 39, Alkaline Phosphatase 125, Total Protein 7.3, Albumin 3.5, Globulin 3.8, Albumin/Globulin Ratio 0.9 L 09/16/17 11:00: WBC 17.7 H D, RBC 3.23 L, Hgb 10.4 L, Hct 31.5 L, MCV 97.5, MCH 32.2, MCHC 33.0, RDW 13.2, Plt Count 626 H, MPV 9.0 I have reviewed the lab results: Yes - RAD Interpretation Radiology Orders: 09/16/17 11:13 CXR [CHEST PORTABLE] [RAD] Stat - EKG Interpretation Interpreted by ED Physician: Yes Type: 12 lead EKG - Medication Orders Current Medication Orders: Discontinued Medications Clonazepam (Klonopin) 1 mg PO STAT STA PRN Reason: Protocol Stop: 09/16/17 11:34 Last Admin: 09/16/17 12:02 Dose: 1 mg Cefepime HCl (Maxipime 1gm) 1 gm in 100 mls @ 100 mls/hr IVPB STAT STA PRN Reason: Protocol Stop: 09/16/17 12:57 Last Admin: 09/16/17 13:07 Dose: 100 mls/hr eMAR Start Stop Document 09/16/17 13:07 GMI (Rec: 09/16/17 13:07 GMI [id number]) Intravenous Solution Start Date 09/16/17 Start Time 13:07 Metronidazole (Flagyl) 500 mg in 100 mls @ 100 mls/hr IVPB STAT STA PRN Reason: Protocol Stop: 09/16/17 13:18 Last Admin: 09/16/17 12:43 Dose: 100 mls/hr eMAR Start Stop Document 09/16/17 12:43 GMI (Rec: 09/16/17 12:43 GMI [id number]) Intravenous Solution Start Date 09/16/17 Start Time 12:43 Lorazepam (Ativan) 1 mg IVP ONCE ONE PRN Reason: Protocol Stop: 09/16/17 13:18 - Scribe Statement The provider has reviewed the documentation as recorded by the Yakov Wynn Provider Scribe Attestation: All medical record entries made by the Scribe were at my direction and personally dictated by me. I have reviewed the chart and agree that the record accurately reflects my personal performance of the history, physical exam, medical decision making, and the department course for this patient. I have also personally directed, reviewed, and agree with the discharge instructions and disposition. Disposition/Present on Arrival - Present on Arrival Any Indicators Present on Arrival: No History of DVT/PE: No History of Uncontrolled Diabetes: No Urinary Catheter: No History of Decub. Ulcer: No History Surgical Site Infection Following: None - Disposition Have Diagnosis and Disposition been Completed?: Yes Diagnosis: Depression, Pneumonia, UTI (urinary tract infection) Disposition: HOSPITALIZED Disposition Time: 12:04 Patient Plan: Admission, Telemetry Condition: FAIR Forms: [employer] ([place])
[2017-09-16 11:38] LABS: URINE APPEARANCE TURBID (CLEAR); URINE COLOR YELLOW (YELLOW)
[2017-09-16 11:43] LABS: URINE BACTERIA LARGE (NEG); URINE EPITHELIAL CELLS 0 - 2 /hpf (0-5); URINE RBC 0 - 2 /hpf (0-2); URINE WBC TNTC /hpf (0-6)
--- NOTE | 2017-09-16 11:49 | RAD ---
PROCEDURE: CHEST RADIOGRAPH, 1 VIEW HISTORY: eval COMPARISON: None available. FINDINGS: LUNGS: Left lower lobe infiltrate. PLEURA: No pneumothorax or pleural fluid seen. CARDIOVASCULAR: Normal. OSSEOUS STRUCTURES: No significant abnormalities. VISUALIZED UPPER ABDOMEN: Normal. OTHER FINDINGS: None. IMPRESSION: Left lower lobe infiltrate.
[2017-09-16] MEDS ORDERED: Cefepime 1gm in NS 100ml 1 GM/100 ML BAG IVPB STA (11:58)
[2017-09-16] MEDS ORDERED: metroNIDAZOLE IV 500 mg/100 ml 500 MG/100 ML BAG IVPB STA (12:19)
[2017-09-16 12:25] LABS: BARBITURATES, UR NEGATIVE (NEGATIVE); BENZODIAZEPINES, UR NEGATIVE (NEGATIVE); OPIATES, UR NEGATIVE (NEGATIVE); PHENCYCLIDINE, UR NEGATIVE (NEGATIVE)
--- NOTE | 2017-09-16 12:50 | CARD ---
APPROVED REPORT EKG Measurement Heart [id number] <Conclusion> Sinus tachycardia ST abnormality, possible digitalis effect Abnormal ECG
[2017-09-16 12:59] LABS: VENOUS BLOOD GAS BASE EXCESS 0.9 mmol/L (0.0-2.0); VENOUS BLOOD GAS PO2 49 mm/Hg (30-55); VENOUS BLOOD PH 7.34 (7.32-7.43)
[2017-09-16 13:10] LABS: ACETAMINOPHEN < 10.0 ug/ml (10.0-20.0); SALICYLATE < 1 mg/dL (2.0-20.0)
[2017-09-16] MEDS ORDERED: Sodium Chloride 0.9% 1,000 ML IV STA (13:23)
[2017-09-16 14:55] VITALS: BMI 19.8
[2017-09-16] MEDS: Cefepime 0.5 GM in Sodium Chloride 0.9% 100 ML IVPB SCH ×2 (16:00→17:41)
[2017-09-16] MEDS ORDERED: Cefepime 1gm in NS 100ml 1 GM/100 ML BAG IVPB SCH (22:00)
[2017-09-16] MEDS: ARIPIPRAZOLE 2 MG PO SCH (22:08)
[2017-09-17 06:27] LABS: HEMOGLOBIN 8.8 g/dL (12.0-16.0); MEAN CELL VOLUME 96.4 fl (80.0-105.0); MEAN CORPUSCULAR HEMOGLOBIN 31.3 pg (25.0-35.0); MEAN CORPUSCULAR HGB CONC 32.5 g/dl (31.0-37.0); MEAN PLATELET VOLUME 8.7 fl (7.0-11.0); RBC 2.81 10^6/uL (3.5-6.1); RED CELL DISTRIBUTION WIDTH 13.1 % (11.5-14.5); WHITE BLOOD COUNT 13.2 10^3/ul (4.5-11.0)
[2017-09-17] MEDS ORDERED: Cefepime 2 GM in Sodium Chloride 0.9% 100 ML IVPB SCH (07:10)
[2017-09-17] MEDS ORDERED: Cefepime 0.5 GM in Sodium Chloride 0.9% 100 ML IVPB SCH (07:10)
[2017-09-17] MEDS ORDERED: Vancomycin 1gm in NS 250ml 1 GM/250 ML BAG IVPB STA (07:12)
[2017-09-17] MEDS: Azithromycin 500MG/NS 250ml 500 MG/250 ML BAG IVPB SCH (09:52)
--- NOTE | 2017-09-17 14:21 | CP.PCM.CON ---
History of Present Illness - History of Present Illness History of Present Illness: 87 year old female with PMH of depression, cataracts, right ear deafness, history of C. diff. infection, irritable bowel syndrome, S/P appendectomy came in to [facility] ([facility]) complaining of feeling depressed. She is also having a little bit of cough but denies fever or chills. She also denies headache or dizziness, no chest pain, no SOB, no sore throat, no rhinorrhea, no abdominal pain, no diarrhea, no dysuria. In the ED, CXR showed left lower lobe infiltrate and urine cx is showing gram negative bacilli. Infectious Diseases consult is requested to further evaluate and manage. 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) - RENAL Hx Chronic Kidney Disease: No - ENDOCRINE/METABOLIC Hx Endocrine Disorders: No - HEMATOLOGICAL/ONCOLOGICAL Hx Blood Disorders: No Hx Cancer: No - INTEGUMENTARY Hx Dermatological Problems: Yes - MUSCULOSKELETAL/RHEUMATOLOGICAL Hx Falls: No - GASTROINTESTINAL Hx Gastrointestinal Disorders: Yes (C DIFF 09-04-12,IBS(IRRITABLE BOWEL SYNDROME )) Hx Diverticulitis: Yes - GENITOURINARY/GYNECOLOGICAL Hx Genitourinary Disorders: No Hx Sexually Transmitted Disorders: No Hx Urinary Tract Infection: Yes - PSYCHIATRIC Hx Anxiety: Yes Hx Depression: Yes - SURGICAL HISTORY Hx Appendectomy: Yes - ANESTHESIA Hx Anesthesia: Yes Hx Anesthesia Reactions: No Hx Malignant Hyperthermia: No Meds Allergies/Adverse Reactions: Allergies Allergy/AdvReac Type Severity Reaction Status Date / Time tetracycline Allergy Severe ANAPHYLAXIS Verified 09/16/17 11:29 - Medications Medications: Current Medications Acetaminophen (Tylenol 325mg Tab) 650 mg PO Q4H PRN PRN Reason: Fever >100.4 F Last Admin: 09/17/17 01:07 Dose: 650 mg Clonazepam (Klonopin) 1 mg PO 0800,1400,1800 EZEQUIEL PRN Reason: Protocol Last Admin: 09/16/17 18:24 Dose: 1 mg Home Med (Home Med) 1 unit PO [facility] Last Admin: 09/16/17 22:08 Dose: Not Given Cefepime HCl 0.5 gm/ Sodium (Chloride) 100 mls @ 100 mls/hr IVPB Q24H [facility] Last Admin: 09/16/17 17:41 Dose: Not Given Mirtazapine (Remeron) 30 mg PO [facility] Last Admin: 09/16/17 21:35 Dose: 30 mg Paroxetine HCl (Paxil) 30 mg PO [facility] Last Admin: 09/16/17 21:35 Dose: 30 mg Physical Exam - Constitutional Appears: Non-toxic - Head Exam Head Exam: NORMAL INSPECTION - ENT Exam ENT Exam: Mucous Membranes Moist - Neck Exam Neck exam: Negative for: Lymphadenopathy, Meningismus - Respiratory Exam Respiratory Exam: Decreased Breath Sounds - Cardiovascular Exam Cardiovascular Exam: +S1, +S2 - GI/Abdominal Exam GI & Abdominal Exam: Soft. absent: Tenderness Results - Vital Signs Recent Vital Signs: Last Vital Signs Temp 101.3 F H 09/17/17 01:07 Pulse 96 H 09/17/17 02:00 Resp 20 09/17/17 01:00 BP 136/76 09/17/17 01:00 Pulse Ox 97 09/17/17 01:00 - Labs Result Diagrams: 09/17/17 05:30 09/16/17 11:00 Labs: Laboratory Results - last 24 hr 09/17/17 05:30 WBC 13.2 H D RBC 2.81 L Hgb 8.8 L Hct 27.1 L MCV 96.4 MCH 31.3 MCHC 32.5 RDW 13.1 Plt Count 480 H MPV 8.7 Assessment & Plan - Assessment and Plan (Free Text) Plan: Assessment Systemic Inflammatory Response Syndrome, consider sepsis due to left lower lobe community-acquired pneumonia R/O UTI depression cataracts right ear deafness history of C. diff. infection irritable bowel syndrome S/P appendectomy Plan Started patient on Cefepime and Zithromax and added Flagyl pending blood, sputum cx, PCT; reviewed CXR which showed LLL infiltrate; follow up identification and sensitivities of the gram negative bacilli in the urine will monitor clinically
[2017-09-17] MEDS ORDERED: Cefepime 2 GM in Sodium Chloride 0.9% 100 ML IVPB ONE (14:30)
[2017-09-17] MEDS ORDERED: Iohexol 350 MG/100 ML VIAL ONE (17:03)
[2017-09-17] MEDS: ARIPIPRAZOLE 2 MG PO SCH (21:20)
--- NOTE | 2017-09-17 21:25 | CON ---
DATE: 09/17/2017 She is being seen today for consultation. PRESENTATION: The patient is an 87-year-old female seen at bedside. She has one-to-one in pose due to concerns that the patient might be suicidal. This consult was called for her history of depression. The patient was admitted to the hospital on 09/16/2017. She came in complaining of depression because her grandson stopped visiting her, evidently is having difficulties with remaining asleep and worthlessness. A clean catch urine culture from 09/16/2017 indicates that the patient does have urinary tract infection, it is preliminarily Gram-negative lópez, so this may have something to deal with how the patient is feeling today. The patient indicates that she lives with her daughter who is 64 years old, they live in the same house and they have a lot of financial difficulties, her daughter is disabled due to PTSD and the patient retired from work at age 65. The patient indicates that she has been depressed since her grandson stops coming to visit the home where she lives with her daughter. She has cut ties with both of them. She is on social security from working during her previous lifetime. Her daughter is disabled. She is being seeing Dr. Pompa, in the last 6 months and has on Klonopin, Paxil, and Remeron. She has been to our Psychiatric Unit here [place] on few times for the same complaint. She denies any history of suicidal attempts or suicidal ideation. She indicates that she is Caodaism and this is something that she would absolutely "never do." She denies any substance or alcohol issues either past or current. Medically, she indicates that she is healthy other than her current urinary tract infection and her history of depression. She legally she has never been arrested and has no legal history at all. She has no family history of depression other than herself and her daughter, also no history of suicidal attempts or mood disorder, alcoholism, or drug abuse. The patient indicates that she grew up in [place]. She has 2 sisters, she is number 1 of 3 siblings. She had a happy childhood. Her parents stay together. She did well in school, had friends, took part in school activities, and graduated from high school on a regular education program. 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 She was at 19-year-old. She said it was a very very happy marriage. She met him at a wedding and they for 60 years, until he 8 years ago of complications of dialysis. They had 2 children, her daughter with whom she lives who is 64 and her son who is 55 or 56, he lives in [place] as well and they have a good relationship. MENTAL STATUS EXAM: The patient is alert and oriented x3. Her eye contact is good. Her behavior is pleasant and cooperative. Her speech rate and volume are within normal limits. Mood is euthymic. Affect is full. Thoughts are goal directed. She denies being suicidal or homicidal. She denies the presence of hallucinations, delusions, or paranoia. Her concentration and her focus are slightly scattered, but this probably with her baseline. Her memory both short and long-term is adequate. Her appetite, she indicates is normal and she indicates is sleeping well at night as long as she takes the Remeron. PHYSICAL EXAMINATION: VITAL SIGNS: Current vital signs include temperature of 98.3, pulse rate of 82, blood pressure of 110/51, and O2 saturation of 98. CURRENT MEDICATIONS: Psychiatrically are Klonopin 1 mg p.o. at 8 a.m., 2 p.m., and 8 p.m. so 3 times a day; mirtazapine 30 mg 1 at bedtime and paroxetine 30 mg 1 p.o. at bedtime. She also is on Zithromax while in hospital. 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 PLAN: The patient is not suicidal, at this time. She does not have history of suicidal behavior, so one-to-one will be discontinued as client is adamant she is not suicidal. The patient has been stable on her medications, she got outpatient from Dr. Pompa prior to have any urinary tract infection. We will continue to follow if the patient is amenable and is appropriate. We will consider for admission on [facility] once she is medically cleared. Thank you for the consult. Freda Regan APN
--- NOTE | 2017-09-18 04:16 | HP ---
CHIEF COMPLAINT AND HISTORY OF PRESENT ILLNESS: This is an 87-year-old female who has come into the hospital feeling weak and tired. The patient has a history of depression, cataracts, hearing impairment, C. diff, and irritable bowel syndrome. The patient has been feeling more depressed. She has a history of depression, has been seeing Psychiatry, but not regularly. She has been on antidepressants in the past. She was found to have a chest x-ray in the Emergency Room that showed a left lower lobe infiltrate that could potentially cause her elevated white count. She was admitted for further evaluation. She has no complaints of cough or congestion. No abdominal pain or back pain. No dysuria, frequency, or nocturia. She is not as active as she was before. She is fatigued. She is not able to concentrate and give complete answers at times. She has a difficult time in focusing. REVIEW OF SYMPTOMS: Limited. ALLERGIES: TETRACYCLINE. MEDICATIONS: Her home medications have been reviewed. PAST MEDICAL HISTORY: As above, also dyslipidemia, and osteoarthritis. PAST SURGICAL HISTORY: Ovarian cyst surgery and carpal tunnel surgery. PHYSICAL EXAMINATION: VITAL SIGNS: T-max is 101.3, pulse is 96, blood pressure is 110/51, respirations are 20, and O2 saturation is 98%. GENERAL: The patient lying in bed, uncomfortable, and in no acute distress. HEENT: Atraumatic and normocephalic. Anicteric sclerae. Moist mucosa. [place] conjunctivae. No oral lesions. NECK: No JVD, anterior and posterior adenopathy, thyromegaly, or bruits. CARDIOVASCULAR: S1 and S2 regular. No murmur, rubs, or gallop. LUNGS: Clear to auscultation bilaterally. No wheezes, rales, or rhonchi. ABDOMEN: Bowel sounds are positive. Soft, nontender and nondistended. No hepatosplenomegaly. No rebound and no guarding. EXTREMITIES: No cyanosis, clubbing, or edema. NEUROLOGIC: No facial asymmetry. Tongue is midline. No uvula deviation. Power is 5/5 upper extremity and lower extremity. Sensation intact in upper extremity and lower extremity. PSYCHIATRIC: She is awake, alert and oriented x2. She is depressed. She has anxiety. She has difficult time in focusing her questions. She is easily distracted. She has poor insight. GENITOURINARY: No CVA tenderness. VASCULAR: 2+ pulses in the carotid pulses and pedal pulses. SKIN: No erythema or nodules. SPINE: Shows normal curvature. LABORATORY DATA: White count is 17.7, repeat is 13.2. Chemistries show sodium 136 and potassium 4.8. Procalcitonin is 0.59. Urine shows nitrites are positive, bilirubin is negative, and esterase is moderate. Toxicology is essentially negative. Serology showed influenza A and B is negative. Urine for Legionella is negative. The patient's chest x-ray shows left lower lobe infiltrate. EKG shows sinus tachycardia at 109, nonspecific ST-T changes, and QTc is 420. ASSESSMENT: 1. Pneumonia. 2. Urinary tract infection. 3. Depression. 4. Osteoarthritis. 5. Dyslipidemia. 6. History of Clostridium difficile. PLAN: The patient is going to be admitted to the hospital. She is going to be placed on antibiotics of cefepime because of the tetracycline allergy. The patient is also going to be on Flagyl for prevention of C. diff. She is on azithromycin. The patient is on a regular diet and one-to-one sitter has been placed by Psychiatry, Dr. Smiley who evaluated the patient as well as . I will get repeat blood work tomorrow. Oleg Floyd MD
[2017-09-18 06:23] LABS: BASO # 0.03 K/mm3 (0.0-2.0); BASO % 0.3 % (0.0-3.0); EOS # 0.1 (0.0-0.7); EOS % 0.5 % (1.5-5.0); GRAN # 7.49 (1.4-6.5); GRAN % 75.7 % (50.0-68.0); HEMOGLOBIN 8.8 g/dL (12.0-16.0); LYMPH # 1.4 (1.2-3.4); LYMPH % 14.3 % (22.0-35.0); MEAN CELL VOLUME 95.7 fl (80.0-105.0); MEAN CORPUSCULAR HEMOGLOBIN 31.2 pg (25.0-35.0); MEAN CORPUSCULAR HGB CONC 32.6 g/dl (31.0-37.0); MEAN PLATELET VOLUME 8.8 fl (7.0-11.0); MONO # 0.9 (0.1-0.6); MONO % 9.2 % (1.0-6.0); RBC 2.82 10^6/uL (3.5-6.1); RED CELL DISTRIBUTION WIDTH 13.2 % (11.5-14.5); WHITE BLOOD COUNT 9.9 10^3/ul (4.5-11.0)
[2017-09-18] MEDS: Azithromycin 500MG/NS 250ml 500 MG/250 ML BAG IVPB SCH (10:27)
[2017-09-18] MEDS: Cefepime 2 GM in Sodium Chloride 0.9% 100 ML IVPB SCH (10:28)
--- NOTE | 2017-09-18 13:18 | CP.PCM.PN ---
Subjective - Date & Time of Evaluation Date of Evaluation: 09/18/17 Time of Evaluation: 09:30 - Subjective Subjective: Resting comfortably in bed, no fevers. Objective - Vital Signs/Intake and Output Vital Signs (last 24 hours): Temp Pulse Resp BP Pulse Ox 99.1 F 95 H 20 120/60 95 09/18/17 08:10 09/18/17 08:10 09/18/17 08:10 09/18/17 08:10 09/18/17 08:10 Intake and Output: 09/18/17 09/18/17 06:59 18:59 Intake Total 600 Balance 600 - Medications Medications: Current Medications Acetaminophen (Tylenol 325mg Tab) 650 mg PO Q4H PRN PRN Reason: Fever >100.4 F Last Admin: 09/17/17 01:07 Dose: 650 mg Clonazepam (Klonopin) 1 mg PO 0800,1400,1800 EZEQUIEL PRN Reason: Protocol Last Admin: 09/17/17 18:21 Dose: 1 mg Home Med (Home Med) 1 unit PO [facility] Last Admin: 09/17/17 21:20 Dose: Not Given Azithromycin (Zithromax 500mg In Ns) 500 mg in 250 mls @ 167 mls/hr IVPB DAILY EZEQUIEL PRN Reason: Protocol Last Admin: 09/17/17 09:52 Dose: 167 mls/hr Cefepime HCl 2 gm/ Sodium (Chloride) 100 mls @ 100 mls/hr IVPB DAILY EZEQUIEL PRN Reason: Protocol Metronidazole (Flagyl) 500 mg PO Q8 EZEQUIEL PRN Reason: Protocol Last Admin: 09/18/17 05:42 Dose: 500 mg Mirtazapine (Remeron) 30 mg PO [facility] Last Admin: 09/17/17 21:18 Dose: 30 mg Paroxetine HCl (Paxil) 30 mg PO [facility] Last Admin: 09/17/17 21:18 Dose: 30 mg - Labs Labs: 09/18/17 05:30 - Constitutional Appears: Non-toxic - Head Exam Head Exam: NORMAL INSPECTION - Neck Exam Neck Exam: absent: Meningismus - Respiratory Exam Respiratory Exam: Decreased Breath Sounds - Cardiovascular Exam Cardiovascular Exam: +S1, +S2 - GI/Abdominal Exam GI & Abdominal Exam: Soft. absent: Tenderness Assessment and Plan - Assessment and Plan (Free Text) Plan: Assessment Systemic Inflammatory Response Syndrome, consider sepsis due to left lower lobe community-acquired pneumonia R/O UTI from Klebsiella depression cataracts right ear deafness history of C. diff. infection irritable bowel syndrome S/P appendectomy Plan continue Cefepime and Zithromax and Flagyl; blood cx are negative, reviewed CXR which showed LLL infiltrate; rapid flu test is negative will continue to monitor clinically
[2017-09-18 18:28] VITALS: O2SAT 96
--- NOTE | 2017-09-18 18:41 | PN ---
DATE: SUBJECTIVE: Shortly, the patient is an 87-year-old female with reported history of depression and anxiety. Patient has a few psychiatric admissions, most recent was into this hospital under this advertising copy writer name, which took place on 01/2017. The patient came to the hospital this time complaining that she was feeling depressed. During the examination, patient was found to have urinary tract infection, required to be admitted on the medical site. Psych consult was called for evaluation of medication as well as depressive symptoms and because the patient has history of mental illness. Patient was seen initially by advanced nurse practitioner, Shereen. The patient requested to speak to this advertising copy writer and that is why this advertising copy writer is following up on this patient. Patient was seen today at the morning time, presented to have good personal hygiene, remember this advertising copy writer by name. Patient presented much better to compare with the previous admissions in the way that she present to be less anxious. The patient was able to hold the interview well. Patient reported that she is still stressed because her grandson did not talk to her or her daughter for the past 2 years. Patient said that both her as well as her daughter are feeling very depressed and hopeless in regards of that matter. Patient reported that she was compliant with the medications, which are Remeron, Klonopin as well as Paxil. Patient reports that she sees Dr. Bryson Pompa, a local psychiatrist at [place], every 3 months. Patient reported that she also had seen therapist by the name, Eliseo Montes and she is planning to go back and see him on a regular basis. Patient denied hearing voices, denied seeing things. Patient reported that she still feels anxious, but patient presented much calmer to compare with the multiple previous visits. Patient reported that she feels hopeless in regards of the situations with her grandson, but adamantly denied thoughts of killing herself or others. PAST PSYCHIATRIC HISTORY: Patient has three previous psychiatric admissions. Patient had severe depression, which seems to be improving in the past. Patient was not able to function. Patient was staying in bed and refused to eat and refused to communicate with others. Patient also had panic attacks and had history of throwing herself on the floor whenever she feels very anxious. Because of the social situation, patient lives with her daughter. Patient's daughter has severe mental illness and family dynamic is far from being ideal because her daughter as well as the patient are very anxious and seasoned to each other depression and anxiety. PHYSICAL EXAMINATION: VITAL SIGNS: Seems to be stable. Temperature 99.1, pulse is 95, blood pressure is 120/60, respiration 20, oxygen saturation is 95. MEDICATIONS: Reviewed. Tylenol, Zithromax, cefepime, Klonopin 1 mg three times a day as well as Flagyl, Remeron 30 mg at the nighttime, Paxil 30 mg at the nighttime. The patient reported tolerating medications well. No side effects observed or reported. LABORATORY DATA: Labs reviewed. Leukocytosis is better from 17, it went down to 9.9 today. Chemistry also reviewed. Procalcitonin is 0.59, which is elevated. Urinalysis showed nitrites, blood as well as leukocyte esterase. Toxicology is negative for any substances and serology, influenza is negative. Urine culture showed Klebsiella in the urine. MENTAL STATUS EXAMINATION: Patient presented to have good personal hygiene, has very nice hair cut, fair eye contact. Speech was low volume, underproductive. Thought process seems to be goal directed and coherent. Mood described, "I feel hopeless about situations with my grandson." Thought content: Patient denied visual, auditory, or tactile hallucinations. Denied paranoid ideations. Patient does not present to be psychotic. Patient reported to feel hopeless, but denied any thoughts of harming herself or others. Denied intent or plan. Insight and judgment seems to be fair. Impulses are well controlled. IMPRESSION: As per history, patient has major depressive disorder, generalized anxiety disorder, panic disorder. At this admission, patient was found to have urinary tract infection and we would like to rule out mood disorder to the general medical condition. PLAN: All medications resumed by medical team. Patient reported that her current doses of medications are correct. Patient said that she sees Dr. Bryson Pompa, local psychiatrist every 3 months. Patient also has therapist in the community, Mr. Eliseo Montes, whom patient is planning to be followed up. This advertising copy writer will follow up on this patient on daily basis. This advertising copy writer does not feel that patient required psychiatric inpatient admission. Patient is on one-to-one for fall precaution. Patient adamantly denied thoughts of harming herself or others, denied intent or plan. We will follow up and advise accordingly. Thank you very much for letting me participate in the care of your patient. Should you have any questions, give me a call back. Karo Smiley MD
[2017-09-18] MEDS: ARIPIPRAZOLE 2 MG PO SCH (21:46)
--- NOTE | 2017-09-18 23:48 | PN ---
DATE: 09/18/2017 SUBJECTIVE: The patient has no complaints of any chest pain. No shortness of breath, headache, or dizziness. PHYSICAL EXAMINATION: VITAL SIGNS: Temperature is 99, pulse is 87, blood pressure is 122/76, and respirations are 20. GENERAL: The patient is lying in bed, flat, comfortable. HEENT: No oral lesion. Anicteric sclerae. Moist mucosa. NECK: No JVD, adenopathy, or thyromegaly. CARDIOVASCULAR: S1 and S2, regular. No murmurs, rubs, or gallops. LUNGS: Clear to auscultation bilaterally. No wheeze, rales, or rhonchi. ABDOMEN: Bowel sounds are positive, soft, nontender and nondistended. EXTREMITIES: No cyanosis, clubbing or edema. LABORATORY DATA: White count of 9.9 and hemoglobin 8.8. Creatinine is 1.0. ASSESSMENT: 1. Pneumonia. 2. Urinary tract infection secondary to Klebsiella. 3. Depression. 4. Osteoarthritis. 5. Dyslipidemia. 6. History of Clostridium difficile. PLAN: The patient is currently comfortable. The patient has a Klebsiella infection, it is sensitive to Cipro and meropenem. The patient is being followed by Dr. Burgos. The patient is on cefepime, Zithromax, and Flagyl. The patient is on Ambien for sleep. She is cleared by Psychiatry and does not require psychiatric admission. The patient is receiving her Remeron. She is going to continue with Paxil as well. The patient is on a regular diet. The white count is back to normal. Her hemoglobin is 8.8. I will add iron studies. Oleg Floyd MD
[2017-09-19 06:24] LABS: BASO # 0.05 K/mm3 (0.0-2.0); BASO % 0.8 % (0.0-3.0); EOS % 0.5 % (1.5-5.0); GRAN # 4.04 (1.4-6.5); GRAN % 66.5 % (50.0-68.0); HEMOGLOBIN 9.5 g/dL (12.0-16.0); LYMPH # 1.2 (1.2-3.4); LYMPH % 19.9 % (22.0-35.0); MEAN CELL VOLUME 95.7 fl (80.0-105.0); MEAN CORPUSCULAR HEMOGLOBIN 31.3 pg (25.0-35.0); MEAN CORPUSCULAR HGB CONC 32.6 g/dl (31.0-37.0); MEAN PLATELET VOLUME 8.8 fl (7.0-11.0); MONO # 0.8 (0.1-0.6); MONO % 12.3 % (1.0-6.0); RBC 3.04 10^6/uL (3.5-6.1); RED CELL DISTRIBUTION WIDTH 13.2 % (11.5-14.5); WHITE BLOOD COUNT 6.1 10^3/ul (4.5-11.0)
[2017-09-19 06:35] LABS: IRON 32 ug/dL (45-180)
[2017-09-19 06:44] LABS: TOTAL IRON BINDING CAPACITY 203 ug/dL (265-497)
[2017-09-19 06:48] LABS: % IRON SATURATION 16 % (20-55)
[2017-09-19] MEDS: Cefepime 2 GM in Sodium Chloride 0.9% 100 ML IVPB SCH (09:46)
[2017-09-19 10:03] VITALS: BP 116/58; PULSE 91; RESP 18; TEMP 98.6
[2017-09-19] MEDS: Azithromycin 500MG/NS 250ml 500 MG/250 ML BAG IVPB SCH (10:50)
--- NOTE | 2017-09-19 15:58 | IP.NPCORE ---
Pneumonia Progress Notes - Oxygenation Assessment (REQUIRED) O2 Saturation: 96 Oxygen Delivery Method: Room Air Date: 09/19/17 Documented P02: No - Blood Cultures (REQUIRED) Culture drawn: Yes Date:: 09/16/17 Time:: 11:30 - Initial Antibiotic Initial Antibiotic given within Four Hours:: Yes - Appropriate Antibiotic Appropriate Antibiotic within 24 hours of Admission:: Yes Date:: 09/16/17 No change in antibiotics: Yes - Smoking Cessation Smoking Cessation counseling provided:: No Ex-Smoker (has not smoked in the last 12 months): No Current Smoker - smoking cessation education provided: No
--- NOTE | 2017-09-19 16:30 | CP.PCM.PN ---
Subjective - Date & Time of Evaluation Date of Evaluation: 09/19/17 Time of Evaluation: 10:25 - Subjective Subjective: Comfortable, not in distress, afebrile. Objective - Vital Signs/Intake and Output Vital Signs (last 24 hours): Temp Pulse Resp BP Pulse Ox 99.0 F 87 20 122/76 96 09/18/17 16:00 09/18/17 16:00 09/18/17 16:00 09/18/17 16:00 09/18/17 16:00 Intake and Output: 09/19/17 09/19/17 06:59 18:59 Intake Total 2280 Balance 2280 - Medications Medications: Current Medications Acetaminophen (Tylenol 325mg Tab) 650 mg PO Q4H PRN PRN Reason: Fever >100.4 F Last Admin: 09/19/17 05:32 Dose: 650 mg Clonazepam (Klonopin) 1 mg PO 0800,1400,1800 EZEQUIEL PRN Reason: Protocol Last Admin: 09/18/17 18:53 Dose: 1 mg Home Med (Home Med) 1 unit PO [facility] Last Admin: 09/18/17 21:46 Dose: Not Given Azithromycin (Zithromax 500mg In Ns) 500 mg in 250 mls @ 167 mls/hr IVPB DAILY EZEQUIEL PRN Reason: Protocol Last Admin: 09/18/17 10:27 Dose: 167 mls/hr Cefepime HCl 2 gm/ Sodium (Chloride) 100 mls @ 100 mls/hr IVPB DAILY EZEQUIEL PRN Reason: Protocol Last Admin: 09/18/17 10:28 Dose: 100 mls/hr Metronidazole (Flagyl) 500 mg PO Q8 EZEQUIEL PRN Reason: Protocol Last Admin: 09/19/17 05:34 Dose: 500 mg Mirtazapine (Remeron) 30 mg PO HS [facility] Last Admin: 09/18/17 21:41 Dose: 30 mg Paroxetine HCl (Paxil) 30 mg PO [facility] Last Admin: 09/18/17 21:41 Dose: 30 mg Zolpidem Tartrate (Ambien) 5 mg PO HS PRN; Protocol PRN Reason: Insomnia - Labs Labs: 09/19/17 06:00 - Constitutional Appears: Non-toxic - Head Exam Head Exam: NORMAL INSPECTION - ENT Exam ENT Exam: Mucous Membranes Moist - Neck Exam Neck Exam: absent: Meningismus - Respiratory Exam Respiratory Exam: Decreased Breath Sounds - Cardiovascular Exam Cardiovascular Exam: +S1, +S2 - GI/Abdominal Exam GI & Abdominal Exam: Soft. absent: Tenderness Assessment and Plan - Assessment and Plan (Free Text) Plan: Assessment Systemic Inflammatory Response Syndrome, consider sepsis due to left lower lobe community-acquired pneumonia R/O UTI from Klebsiella depression cataracts right ear deafness history of C. diff. infection irritable bowel syndrome S/P appendectomy Plan continue Cefepime and Zithromax and Flagyl day 3 - complete up to 7 days of therapy; blood cx are negative, reviewed CXR which showed LLL infiltrate; rapid flu test is negative will continue to monitor clinically
--- NOTE | 2017-09-19 21:24 | DS ---
HISTORY OF PRESENT ILLNESS: This is an 87-year-old female who initially come to the hospital and was found to have community-acquired pneumonia. She had elevated white count. She was sluggish. The patient was also having significant depression because of her personal issues. Her pneumonia is improved. She has normal white count. She was seen by Psychiatry and was cleared to followup as an outpatient. She sees Dr. Bryson Pompa. The patient also is going to be seeing for further counseling on one-to-one. The patient has no complaints of any headaches or dizziness. She denies hurting herself or anyone. No headaches. No nausea. No fevers. PHYSICAL EXAMINATION: VITAL SIGNS: Temperature is 99, pulse of 87, blood pressure 122/76, and respirations 20. GENERAL: The patient is lying in bed, flat, comfortable. HEENT: No oral lesion. Anicteric sclerae. Moist mucosa. NECK: No JVD, adenopathy, or thyromegaly. CARDIOVASCULAR: S1 and S2, regular. No murmurs, rubs, or gallops. LUNGS: Clear to auscultation bilaterally. No wheeze, rales, or rhonchi. ABDOMEN: Bowel sounds are positive, soft, nontender and nondistended. EXTREMITIES: No cyanosis, clubbing or edema. LABORATORY DATA: Blood cultures have been negative. Urine culture shows Klebsiella. ASSESSMENT: 1. Community-acquired pneumonia. 2. Urinary tract infection secondary to Klebsiella. 3. Depression. 4. Osteoarthritis. 5. Dyslipidemia. 6. History of Clostridium difficile. PLAN: The patient is currently comfortable. She is on cefepime and Zithromax. The patient is going to be discharge home today. She will be placed on oral antibiotics. She is on ciprofloxacin for her urine, so I will give her ciprofloxacin and also give her Flagyl to prevent C. diff. She is on Paxil. She is going to continue with regular diet. [facility], we will transfer her to [facility]. Oleg Floyd MD
== END 2017-09-19 16:11 | DRG 689 ==
LOC: ED 10:39 → ERH 13:15 → 3RNO 18:08
PROVIDERS: ADMIT Internal Medicine Nephrology; ATTEND Internal Medicine Nephrology
DX: N39.0 Urinary tract infection, site not specified (principal); B96.1 Klebsiella pneumoniae [K. pneumoniae] as the cause of diseases classified elsewhere; J18.9 Pneumonia, unspecified organism; F33.9 Major depressive disorder, recurrent, unspecified; E78.5 Hyperlipidemia, unspecified; K58.9 Irritable bowel syndrome, unspecified; F41.1 Generalized anxiety disorder; F41.0 Panic disorder [episodic paroxysmal anxiety]; H91.91 Unspecified hearing loss, right ear; H26.9 Unspecified cataract; M19.90 Unspecified osteoarthritis, unspecified site; Z87.891 Personal history of nicotine dependence

== ENCOUNTER 2017-09-19 16:15 | Inpatient (IN) | payer OTHER ==
[2017-09-19 16:34] VITALS: BMI 23.2
[2017-09-19] MEDS ORDERED: Influenza Vaccine 60 mcg/0.5 mL SYR (4YR UP) IM ONE (20:24)
[2017-09-19] MEDS ORDERED: Pneumococcal 23-Valent Vaccine IM ONE (20:24)
[2017-09-20] MEDS ORDERED: Cefepime IV 2 gm in NS 2 GM/100 ML BAG IVPB SCH (06:00)
[2017-09-20] MEDS: Azithromycin 500MG/NS 250ml 500 MG/250 ML BAG IVPB SCH (06:33)
--- NOTE | 2017-09-20 07:18 | PN ---
DATE: 09/20/2017 SUBJECTIVE: The patient has no complaints of any chest pain. No shortness of breath, headaches, or dizziness. The initial H&P was reviewed by me and I agreed with. She is on the Transitional Care Unit for rehab. PHYSICAL EXAMINATION: VITAL SIGNS: Temperature 98.6, pulse of 84, blood pressure of 130/57, and respirations 18. GENERAL: The patient is lying in bed, flat, comfortable. HEENT: No oral lesion. Anicteric sclerae. Moist mucosa. NECK: No JVD, adenopathy, or thyromegaly. CARDIOVASCULAR: S1 and S2, regular. No murmurs, rubs, or gallops. LUNGS: Clear to auscultation bilaterally. No wheeze, rales, or rhonchi. ABDOMEN: Bowel sounds are positive, soft, nontender and nondistended. EXTREMITIES: No cyanosis, clubbing or edema. ASSESSMENT: 1. Community-acquired pneumonia. 2. Urinary tract infection secondary to Klebsiella. 3. Depression. 4. Osteoarthritis. 5. Dyslipidemia. PLAN: The patient is currently on cefepime for antibiotic. She is on Flagyl, she is going to continue it. She is receiving Tylenol. She is going to be followed by Dr. Burgos from [place]. May be able to switch to p.o. antibiotics. The patient is on Remeron. I have also asked Dr. Smiley from Psychiatry to follow the patient. She does have significant depression. It is being treated. She is on regular diet. I did leave a message for the patient's daughter yesterday to give her an update on the patient's diagnoses and plan of care. Oleg Floyd MD
--- NOTE | 2017-09-20 14:58 | CP.PCM.CON ---
History of Present Illness - History of Present Illness History of Present Illness: 87 year old female with PMH of depression, cataracts, right ear deafness, history of C. diff. infection, irritable bowel syndrome, S/P appendectomy was initially admitted in [facility] for feeling depressed and she was also found to have left sided pneumonia and UTI with Klebsiella. She is now transferred to [facility] for continued medical therapy and physical rehab. Infectious Diseases consult is requested to further evaluate and manage. She is currently doing her rehab, doing well, no fever or chills, no nausea or vomiting, no chest pain, no SOB, no headache or dizziness, no sore throat, no abdominal pain, no diarrhea, no dysuria. 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) - RENAL Hx Chronic Kidney Disease: No - ENDOCRINE/METABOLIC Hx Endocrine Disorders: No - HEMATOLOGICAL/ONCOLOGICAL Hx Blood Disorders: No Hx Cancer: No - INTEGUMENTARY Hx Dermatological Problems: Yes - MUSCULOSKELETAL/RHEUMATOLOGICAL Hx Falls: No - GASTROINTESTINAL Hx Gastrointestinal Disorders: Yes (h/o c diff,ibs,appendectomy) - GENITOURINARY/GYNECOLOGICAL Hx Genitourinary Disorders: Yes (uti) Hx Reproductive Disorders: No - PSYCHIATRIC Hx Anxiety: Yes Hx Depression: Yes - SURGICAL HISTORY Hx Appendectomy: Yes - ANESTHESIA Hx Anesthesia: Yes Hx Anesthesia Reactions: No Hx Malignant Hyperthermia: No Meds Allergies/Adverse Reactions: Allergies Allergy/AdvReac Type Severity Reaction Status Date / Time tetracycline Allergy Severe ANAPHYLAXIS Verified 09/19/17 20:05 - Medications Medications: Current Medications Acetaminophen (Tylenol 325mg Tab) 650 mg PO Q4H PRN; Protocol PRN Reason: Fever >100.4 F Clonazepam (Klonopin) 1 mg PO 0800,1400,1800 EZEQUIEL PRN Reason: Protocol Last Admin: 09/19/17 17:20 Dose: 1 mg Azithromycin (Zithromax 500mg In Ns) 500 mg in 250 mls @ 167 mls/hr IVPB 0600 EZEQUIEL PRN Reason: Protocol Stop: 09/27/17 07:30 Last Admin: 09/20/17 06:33 Dose: 167 mls/hr Cefepime HCl (Maxipime 2gm) 2 gm in 100 mls @ 100 mls/hr IVPB Q12 EZEQUIEL PRN Reason: Protocol Stop: 09/25/17 10:01 Metronidazole (Flagyl) 500 mg PO Q8 EZEQUIEL PRN Reason: Protocol Last Admin: 09/20/17 05:31 Dose: 500 mg Mirtazapine (Remeron) 30 mg PO HS EZEQUIEL PRN Reason: Protocol Last Admin: 09/19/17 21:54 Dose: 30 mg Paroxetine HCl (Paxil) 30 mg PO HS EZEQUIEL PRN Reason: Protocol Last Admin: 09/19/17 21:54 Dose: 30 mg Zolpidem Tartrate (Ambien) 5 mg PO HS PRN; Protocol PRN Reason: Insomnia Physical Exam - Constitutional Appears: Non-toxic - Head Exam Head Exam: NORMAL INSPECTION - ENT Exam ENT Exam: Mucous Membranes Moist - Neck Exam Neck exam: Negative for: Meningismus - Respiratory Exam Respiratory Exam: Decreased Breath Sounds - Cardiovascular Exam Cardiovascular Exam: +S1, +S2 - GI/Abdominal Exam GI & Abdominal Exam: Soft. absent: Tenderness Results - Vital Signs Recent Vital Signs: Last Vital Signs Temp 98.6 F 09/19/17 20:06 Pulse 84 09/19/17 20:06 Resp 18 09/19/17 20:06 BP 130/57 L 09/19/17 20:06 Pulse Ox Assessment & Plan - Assessment and Plan (Free Text) Plan: Assessment Systemic Inflammatory Response Syndrome, consider sepsis due to left lower lobe community-acquired pneumonia R/O UTI from Klebsiella depression cataracts right ear deafness history of C. diff. infection irritable bowel syndrome S/P appendectomy Plan continue Cefepime and Zithromax and Flagyl day 4 - complete up to 7 days of therapy; blood cx are negative, reviewed CXR which showed LLL infiltrate; rapid flu test is negative will continue to follow clinically
[2017-09-20] MEDS: Cefepime IV 2 gm in NS 2 GM/100 ML BAG IVPB SCH (18:03)
--- NOTE | 2017-09-20 19:39 | PN ---
DATE: SUBJECTIVE: The patient has long history of depression and anxiety. The patient was admitted to the medical site for pneumonia as well as urinary tract infection. This casualty underwriter was following the patient for medication management and supportive therapy. The patient requested to see this casualty underwriter. The patient was transferred to Transitional Care Unit. This casualty underwriter was following on the patient as per medical team request. The patient was seen today. The patient presented to be anxious as usual, reported to feel weak. Overall, the patient is improving. The patient has transient symptoms of hopelessness, but denied any suicidal ideations. The patient actually participating in treatment plan, supportive therapy, and emphatic listening was provided in regards to other patients stressors about her grandson who does not want to be involved in the family anymore. The patient responded well. PHYSICAL EXAMINATION: VITAL SIGNS: Reviewed and seems to be stable. Temperature is 97.8, pulse is 76, blood pressure is 109/56, respirations 18, and oxygen saturation is 95. MENTAL STATUS EXAMINATION: The patient presented to be alert and oriented, pleasant, and cooperative. Clear eye contact. Speech was normal rate, but low volume, Mood described "I am hanging in there." Affect was constricted, but reactive. Mood congruent. Thought process seems to be circumstantial. Thought content, the patient denied visual, auditory, or tactile hallucinations. Denied paranoid ideations. Transient feeling of hopelessness. Insight and judgment fair. Impulses are well controlled. The patient adamantly denied thoughts of killing herself or others. No psychosis identified or reported. MEDICATIONS: Reviewed. The patient is on Zithromax, cefepime, Klonopin needs to be continued, Flagyl, Remeron 30 mg at the nighttime, Paxil 30 mg at the nighttime, and Ambien 5 mg at the nighttime. LABORATORY DATA: No new labs, notes from Infectious Disease reviewed and primary care physician notes reviewed. IMPRESSION: As per history,major depressive disorder as well as generalized anxiety disorder and panic disorder. PLAN: Continue current management. Continue current medications. Continue Klonopin. Continue Remeron and Paxil. The patient seems to variety medications side effects reported. The patient requested this casualty underwriter to follow up on her tomorrow. The patient seems to have good report and responding to supportive therapy and emphatic listening very well. We will follow up and advise accordingly. Of note, the patient has follow up with Dr. Pompa in the Community as well as therapist. Thank you very much for letting me to participate in the care of your patient. Karo Smiley MD
[2017-09-21] MEDS: Cefepime IV 2 gm in NS 2 GM/100 ML BAG IVPB SCH ×2 (05:03→18:43)
[2017-09-21] MEDS: Azithromycin 500MG/NS 250ml 500 MG/250 ML BAG IVPB SCH (05:04)
--- NOTE | 2017-09-21 14:09 | CP.PCM.PN ---
Subjective - Date & Time of Evaluation Date of Evaluation: 09/21/17 Time of Evaluation: 11:45 - Subjective Subjective: Doing her physical therapy well, no fevers, no cough, no SOB currently. Objective - Vital Signs/Intake and Output Vital Signs (last 24 hours): Temp Pulse Resp BP Pulse Ox 97.7 F 97 H 20 97/49 L 96 09/21/17 06:31 09/21/17 06:31 09/21/17 06:31 09/21/17 06:31 09/21/17 06:31 - Medications Medications: Current Medications Acetaminophen (Tylenol 325mg Tab) 650 mg PO Q4H PRN; Protocol PRN Reason: Fever >100.4 F Last Admin: 09/20/17 13:53 Dose: 650 mg Clonazepam (Klonopin) 1 mg PO 0800,1400,1800 EZEQUIEL PRN Reason: Protocol Last Admin: 09/20/17 18:11 Dose: 1 mg Azithromycin (Zithromax 500mg In Ns) 500 mg in 250 mls @ 167 mls/hr IVPB 0600 EZEQUIEL PRN Reason: Protocol Stop: 09/27/17 07:30 Last Admin: 09/21/17 05:04 Dose: 167 mls/hr Cefepime HCl (Maxipime 2gm) 2 gm in 100 mls @ 100 mls/hr IVPB Q12H EZEQUIEL PRN Reason: Protocol Stop: 09/25/17 18:01 Last Admin: 09/21/17 05:03 Dose: 100 mls/hr Metronidazole (Flagyl) 500 mg PO Q8 EZEQUIEL PRN Reason: Protocol Last Admin: 09/21/17 05:03 Dose: 500 mg Mirtazapine (Remeron) 30 mg PO HS EZEQUIEL PRN Reason: Protocol Last Admin: 09/20/17 22:09 Dose: 30 mg Paroxetine HCl (Paxil) 30 mg PO HS EZEQUIEL PRN Reason: Protocol Last Admin: 09/20/17 21:09 Dose: 30 mg Zolpidem Tartrate (Ambien) 5 mg PO HS PRN; Protocol PRN Reason: Insomnia Last Admin: 09/20/17 21:14 Dose: 5 mg - Constitutional Appears: Non-toxic, Chronically Ill - Head Exam Head Exam: NORMAL INSPECTION - Respiratory Exam Respiratory Exam: Decreased Breath Sounds - Cardiovascular Exam Cardiovascular Exam: +S1, +S2 - GI/Abdominal Exam GI & Abdominal Exam: Soft. absent: Tenderness Assessment and Plan - Assessment and Plan (Free Text) Plan: Assessment Systemic Inflammatory Response Syndrome, consider sepsis due to left lower lobe community-acquired pneumonia R/O UTI from Klebsiella depression cataracts right ear deafness history of C. diff. infection irritable bowel syndrome S/P appendectomy Plan continue Cefepime and Zithromax day 5 - complete up to 7 days of therapy; blood cx are negative, reviewed CXR which showed LLL infiltrate; rapid flu test is negative will continue to follow clinically
--- NOTE | 2017-09-21 18:54 | PN ---
DATE: FOLLOWUP NOTE SUBJECTIVE: The patient was followed up today for anxiety and depression. The patient presented to be anxious today. The patient reported that she did not have a good night sleep, but based on report, the patient did not ask for Ambien what she was prescribed. The patient asked Remeron to be increased, but I think anxiety and insomnia could be related to the medical condition what the patient has and on top of that, there is no need to increase the dose of scheduled dose of medication, she could ask for p.r.n. medication. Overall the patient presented better, but little bit anxious, reported that she feels weak but denied any thoughts of harming herself or others. Depression is under control. PHYSICAL EXAMINATION Vital signs are stable. Temperature 98.2, pulse is 92, blood pressure 102/72, respirations 18, oxygen saturation is 96. Medications reviewed. The patient is on azithromycin, Maxipime, Klonopin 1 mg three times a day, Flagyl, Remeron 30 mg at the nighttime, Paxil 30 mg at the nighttime and Ambien 5 mg at the nighttime. Labs reviewed. There are no new labs. MENTAL STATUS EXAM: The patient is pleasant, cooperative, socially appropriate. Good eye contact. Mood described as I did not sleep that well last night. Affect was constricted, but reactive. Mood congruent. Thought process circumstantial. Thought content, the patient denied visual, auditory or tactile hallucinations. Denied paranoid ideation. The patient denied thoughts of killing herself or others, transient symptoms of hopelessness in regards of her grandson, who did not returned her calls for past 2 years. Patient insight and judgment seems to be improving. Impulses are well controlled. IMPRESSION: Most likely the patient has adjustment disorder. The patient has history of major depressive disorder, which seems to be under control or mild at present moment, anxiety disorder, seems to be under control. PLAN: Continue current management. Continue current medication. Continue Remeron 30 mg at the nighttime for insomnia. The patient could have Ambien 5 mg. The patient also is on Paxil 30 mg at the nighttime. The patient requested to be followed by Psychiatrist on-call. The patient has been compliant with the medications and no behavioral issues. Will endorse Psychiatrist on-call to follow on this patient. Thank you very much for letting me participate in care of your patient. Should you have any questions give me a call back. Karo Smiley MD
[2017-09-22] MEDS: Cefepime IV 2 gm in NS 2 GM/100 ML BAG IVPB SCH ×2 (05:29→17:36)
--- NOTE | 2017-09-22 15:56 | PN ---
DATE: 09/22/2017 SUBJECTIVE: The patient is in bed, in no acute distress, nontoxic. PHYSICAL EXAMINATION: VITAL SIGNS: Temperature is 98, blood pressure is 120/70, respiratory rate of 16. HEENT: Unremarkable. NECK: Supple. LUNGS: Have decreased breath sounds. HEART: Normal S1, S2. ABDOMEN: Soft. LABORATORY DATA: Reveals the patient to have noted. ASSESSMENT AND PLAN: This is an 87-year-old female with systemic inflammatory response syndrome (SIRS) due to sepsis with left lower community-acquired pneumonia and Klebsiella urinary tract infection, depression and cataracts and right ear deafness, history of Clostridium difficile infection, irritable bowel syndrome, status post appendectomy and today is day #6 of cefepime and Zithromax, would complete 7 days. Review of orders reveals the patient is on p.o. Flagyl also and cefepime and p.o. Zithromax. Sebastian Álvarez MD
[2017-09-23] MEDS: Cefepime IV 2 gm in NS 2 GM/100 ML BAG IVPB SCH (05:18)
--- NOTE | 2017-09-23 10:02 | PN ---
DATE: 09/23/2017 SUBJECTIVE: The patient is in bed in no acute distress, nontoxic, was seen earlier in room 320. PHYSICAL EXAMINATION: VITAL SIGNS: Temperature is 98, blood pressure is 109/50, and respiratory rate of 18. HEENT: Unremarkable. NECK: Supple. LUNGS: Have decreased breath sounds. HEART: Normal S1 and S2. ABDOMEN: Soft. LABORATORY DATA: Reveals the last white count was 6.1, hemoglobin of 9. Chemistries are noted with creatinine of 1.0. Microbiology is reviewed and Klebsiella in the urine is noted from the 7th. Review of orders reveals the patient to be on cefepime and p.o. azithromycin. The patient's last procalcitonin was reported to be 0.59. ASSESSMENT AND PLAN: An 87-year-old female with systemic inflammatory response syndrome and sepsis with a left lower community-acquired pneumonia with Klebsiella urinary tract infection, depression, cataracts, right ear deafness, pseudomembranous colitis, irritable bowel syndrome, and history of status post appendectomy. Today is day #7 of cefepime and Zithromax and the patient is also on p.o. Flagyl. We will discontinue the antibiotics. No further antibiotics necessary. We will follow closely with you. Sebastian Álvarez MD
--- NOTE | 2017-09-24 07:10 | PN ---
DATE: 09/24/2017 SUBJECTIVE: The patient has no complaints of any chest pain. No shortness of breath. No headaches or dizziness. PHYSICAL EXAMINATION: VITAL SIGNS: Temperature is 98.6, pulse is 92, blood pressure is 127/73, and respirations are 17. GENERAL: The patient is lying in bed, flat, comfortable. HEENT: No oral lesion. Anicteric sclerae. Moist mucosa. NECK: No JVD, adenopathy, or thyromegaly. CARDIOVASCULAR: S1 and S2, regular. No murmurs, rubs, or gallops. LUNGS: Clear to auscultation bilaterally. No wheeze, rales, or rhonchi. ABDOMEN: Bowel sounds are positive, soft, nontender and nondistended. EXTREMITIES: No, cyanosis, clubbing, or edema. ASSESSMENT: 1. Community-acquired pneumonia. 2. Urinary tract infection secondary to Klebsiella. 3. Depression. 4. Osteoarthritis. 5. Dyslipidemia. PLAN: The patient is currently comfortable. She is going to continue with Klonopin. The patient is receiving Remeron. She is going to continue with Tylenol. She is going to continue physical therapy. She is going to continue regular diet. She is comfortable. Oleg Floyd MD
--- NOTE | 2017-09-24 08:18 | PN ---
DATE: 09/22/2017 ADDENDUM Patient is not acute. If acute issues, please call over the weekend, meanwhile this director underwriter sales will follow up on this pt next week. Pt denied suicidal ideations, homicidal ideations, psychosis. Anxiety, seems to the chronic and in under control. Thank you. Karo Smiley MD MTDD
--- NOTE | 2017-09-24 18:10 | PN ---
DATE: 09/24/2017 SUBJECTIVE: The patient is in bed in no acute distress, nontoxic. PHYSICAL EXAMINATION VITAL SIGNS: Temperature is 98, blood pressure is 112/50, respiratory rate of 18 and heart rate of 94. HEENT: Unremarkable. NECK: Supple. LUNGS: Have decreased breath sounds. HEART: Normal S1 and S2. ABDOMEN: Soft and nontender. LABORATORY EXAMINATION: Reviewed. ASSESSMENT AND PLAN: This is an 87-year-old female with systemic inflammatory response syndrome and sepsis with a left lower community-acquired pneumonia and Klebsiella urinary tract infection, depression, cataracts, right ear deafness, pseudomembranous colitis, irritable bowel syndrome, history of appendectomy, had completed 7 days of cefepime and Zithromax and currently now off of antibiotics, afebrile and Dr. Floyd is note from today is reviewed. The patient is at risk for developing nosocomial infections. Sebastian Álvarez MD
--- NOTE | 2017-09-25 20:00 | PN ---
DATE: SUBJECTIVE: The patient was followed up today. The patient presented well. The patient reported that she tolerates medications well. The patient reported that she has good appetite and sleep. The patient complained only for weakness. The patient participate in physical therapy. Besides that, there are no acute issues. OBJECTIVE: VITAL SIGNS: The patient vital signs are stable. Temperature is 98.3, pulse is 92, blood pressure is 108/56, and respirations are 18. MENTAL STATUS EXAM: The patient appears to be calm, cooperative, and socially appropriate. Intermittent eye contact. Speech was normal rate, tone, quality, and quantity. Mood described "I am getting alone." Affect was constricted, but reactive. Mood congruent. Thought process seems to be coherent and goal directed. Thought content, the patient denied visual, auditory, or tactile hallucinations. Denied paranoid ideation. The patient denied thoughts of harming herself or others. Denied intent or plan. Insight and judgment fair. Impulses are well controlled. MEDICATIONS: Reviewed. Tylenol, Klonopin 1 mg four times a day, Remeron 30 mg at the nighttime, Paxil, and Ambien as needed. LABORATORY DATA: Reviewed. No new labs. IMPRESSION: The patient has a history of major depressive disorder and generalized anxiety disorder, adjustment disorder with depressed and anxious mood. Rule out mood disorder due to general medical condition. PLAN: Continue current management. Continue current medication. The patient has followup appointment with Dr. Bryson Pompa as well as with the therapist. The patient was advised to take medication as it was prescribed. The patient was advised to follow up with her primary psychiatrist and therapist. The patient has supportive daughter. At this point, there is no acute issues going on with the patient. Please reconsult as needed. The patient pose no imminent danger to self or others. We will sign off. Should you have any questions, give me a call back. Karo Smiley MD
--- NOTE | 2017-09-25 22:19 | PN ---
DATE: 09/25/2017 SUBJECTIVE: The patient is in bed, in no acute distress, nontoxic. PHYSICAL EXAMINATION: VITAL SIGNS: Temperature is 98, blood pressure is 120/70, respiratory rate is 16. HEENT: Unremarkable. NECK: Supple. LUNGS: Have decreased breath sounds. HEART: Normal S1, S2. ABDOMEN: Soft, nontender. LABORATORY EXAMINATION: The patient's labs were reviewed. ASSESSMENT AND PLAN: An 87-year-old female with systemic inflammatory response syndrome, sepsis with left lower community-acquired pneumonia, Klebsiella urinary tract infection, depression, cataract, right ear deafness, pseudomembranous colitis, irritable bowel syndrome, history of appendectomy, and completed 7 days of cefepime, Zithromax. Currently off of antibiotics, afebrile, and the patient is at risk for developing nosocomial infections. Review of orders confirms the patient to be off of antibiotics. Sebastian Álvarez MD
[2017-09-26 07:10] VITALS: O2SAT 94
[2017-09-26 16:34] VITALS: BP 118/62; PULSE 94; RESP 18; TEMP 98.2
--- NOTE | 2017-09-26 23:12 | PN ---
DATE: 09/26/2017 SUBJECTIVE: The patient is in bed, no acute distress, nontoxic. The patient is seen early this morning. No fevers. No chills. PHYSICAL EXAMINATION: VITAL SIGNS: Temperature is 98, blood pressure is 120/70, and respiratory rate of 16. HEENT: Unremarkable. NECK: Supple. LUNGS: Have decreased breath sounds. HEART: Normal S1 and S2. ABDOMEN: Soft. Nontender. LABORATORY EXAMINATION: Reveals the patient's laboratories are pending and review of orders reveal the patient to be off antibiotics. ASSESSMENT AND PLAN: This is an 87-year-old female, seen early this morning with systemic inflammatory response syndrome, sepsis with left lower community-acquired pneumonia, Klebsiella urinary tract infection, depression, cataract, right ear deafness, pseudomembranous colitis, irritable bowel syndrome, history of appendectomy, completed 7 days of antibiotics, currently off antibiotics, afebrile. The patient is at risk for developing nosocomial infections. Sebastian Álvarez MD
--- NOTE | 2017-09-27 08:22 | DS ---
SUBJECTIVE: This is an 87-year-old female who has come into the hospital because of pneumonia. She was also found to have UTI. She had improved. She was seen by Psychiatry and is cleared from major depression. She is getting physical therapy at the [facility]. She is going to be discharged home tomorrow. I did speak to the patient's daughter yesterday to give her an update on the patient's diagnoses and plan of care. PHYSICAL EXAMINATION: VITAL SIGNS: Temperature is 98.1, pulse of 68, blood pressure 122/74, and respirations 16. GENERAL: The patient lying in bed, uncomfortable, and in no acute distress. HEENT: Atraumatic and normocephalic. Anicteric sclerae. Moist mucosa. [place] conjunctivae. No oral lesions. NECK: No JVD, anterior and posterior adenopathy, thyromegaly, or bruits. CARDIOVASCULAR: S1 and S2 regular. No murmur, rubs, or gallop. LUNGS: Clear to auscultation bilaterally. No wheezes, rales, or rhonchi. ABDOMEN: Bowel sounds are positive. Soft, nontender and nondistended. No hepatosplenomegaly. No rebound and no guarding EXTREMITIES: No cyanosis, clubbing, or edema. NEUROLOGIC: No facial asymmetry. Tongue is midline. No uvula deviation. Power is 5/5 upper extremity and lower extremity. Sensation intact in upper extremity and lower extremity. PSYCHIATRIC: She is awake, alert and oriented x3. No anxiety or depression. She has normal affect. GENITOURINARY: No CVA tenderness. VASCULAR: 2+ pulses in the carotid pulses and pedal pulses. SKIN: No erythema or nodules SPINE: Shows normal curvature. ASSESSMENT: 1. Community-acquired pneumonia, improved. 2. Urinary tract infection secondary to Klebsiella, improved. 3. Depression. 4. Osteoarthritis. 5. Dyslipidemia. PLAN: The patient is currently on Remeron. She is going to continue on Paxil for her depression. She is on Tylenol as needed. She is on a regular diet. She did receive her pneumonia vaccine and the influenza vaccine. She is on Ambien for sleep. CONDITION: Stable. ACTIVITY: Increase as tolerated. Oleg Everett, MD [facility] # [id number]
--- NOTE | 2017-09-27 09:28 | DS ---
HISTORY OF PRESENT ILLNESS: This is an 87-year-old female who is getting physical therapy. The patient is currently comfortable. She is ambulating. She has had a community-acquired pneumonia, UTI that she was treated with. She is going to be discharged home to follow up as an outpatient. The patient's daughter wishes for her to go to [facility], so referral has been made by team and healthcare social worker. I am waiting to just find out if she gets accepted. PHYSICAL EXAMINATION: VITAL SIGNS: Temperature 98.2, pulse of 94, blood pressure 118/62, respirations 18. GENERAL: The patient is lying in bed, flat, comfortable. HEENT: No oral lesion. Anicteric sclerae. Moist mucosa. NECK: No JVD, adenopathy, or thyromegaly. CARDIOVASCULAR: S1 and S2, regular. No murmurs, rubs, or gallops. LUNGS: Clear to auscultation bilaterally. No wheeze, rales, or rhonchi. ABDOMEN: Bowel sounds are positive, soft, nontender and nondistended. EXTREMITIES: No cyanosis, clubbing or edema. ASSESSMENT: 1. Community-acquired pneumonia. 2. Urinary tract infection secondary to Klebsiella. 3. Depression. 4. Osteoarthritis. 5. Dyslipidemia. PLAN: The patient is currently comfortable. She is on Ambien for sleep. The patient is receiving Remeron. She is going to be on Paxil for her depression. CONDITION: Stable. ACTIVITY: Increase as tolerated. Oleg Floyd MD
--- NOTE | 2017-09-27 22:47 | PN ---
DATE: 09/27/2017 SUBJECTIVE: The patient is in bed, in no acute distress, nontoxic. PHYSICAL EXAMINATION: VITAL SIGNS: Temperature is 99, blood pressure is 118/60, respiratory rate of 16, and heart rate of 94. HEENT: Unremarkable. NECK: Supple. LUNGS: Have decreased breath sounds. HEART: Normal S1 and S2. ABDOMEN: Soft. LABORATORY DATA: Reviewed. ASSESSMENT AND PLAN: An 87-year-old female seen earlier this morning in room 320, doing well. The patient with systemic inflammatory response syndrome and sepsis with a left lower community-acquired pneumonia and Klebsiella urinary tract infection, depression, cataracts, right ear deafness, pseudomembranous colitis, irritable bowel syndrome, history of appendectomy, had completed 7 days of antibiotics, and currently off of antibiotics. The patient will discharge today. Discussed with primary care doctor. Sebastian Álvarez MD
== END 2017-09-27 12:47 | DRG 194 ==
LOC: TRCU 16:15
PROVIDERS: ADMIT Internal Medicine Nephrology; ATTEND Internal Medicine Nephrology
PROC: F07Z9FZ Gait Training/Functional Ambulation Treatment using Assistive, Adaptive, Supportive or Protective Equipment (ICD-10-PCS; principal; 2017-09-21)
PROC: F07Z5FZ Bed Mobility Treatment using Assistive, Adaptive, Supportive or Protective Equipment (ICD-10-PCS; 2017-09-21)
PROC: F07Z8FZ Transfer Training Treatment using Assistive, Adaptive, Supportive or Protective Equipment (ICD-10-PCS; 2017-09-21)
PROC: F07L6FZ Therapeutic Exercise Treatment of Musculoskeletal System - Lower Back / Lower Extremity using Assistive, Adaptive, Supportive or Protective Equipment (ICD-10-PCS; 2017-09-22)
PROC: F08Z2FZ Grooming/Personal Hygiene Treatment using Assistive, Adaptive, Supportive or Protective Equipment (ICD-10-PCS; 2017-09-23)
DX: J18.9 Pneumonia, unspecified organism (principal); N39.0 Urinary tract infection, site not specified; B96.1 Klebsiella pneumoniae [K. pneumoniae] as the cause of diseases classified elsewhere; F32.9 Major depressive disorder, single episode, unspecified; H91.91 Unspecified hearing loss, right ear; H26.9 Unspecified cataract; F41.1 Generalized anxiety disorder; F41.0 Panic disorder [episodic paroxysmal anxiety]; K58.9 Irritable bowel syndrome, unspecified; F43.23 Adjustment disorder with mixed anxiety and depressed mood; M19.90 Unspecified osteoarthritis, unspecified site; E78.5 Hyperlipidemia, unspecified; Z87.891 Personal history of nicotine dependence; Z86.19 Personal history of other infectious and parasitic diseases

== ENCOUNTER 2017-10-08 03:59 | Emergency (ER) | payer MEDICARE, OTHER ==
[2017-10-08 04:00] VITALS: BMI 23.2
[2017-10-08 04:10] VITALS: TEMP 97.7
--- NOTE | 2017-10-08 04:23 | ED PDOC ---
Arrival/HPI - General Chief Complaint: GI Problem Time Seen by Provider: 10/08/17 04:02 Historian: Patient - History of Present Illness Narrative History of Present Illness (Text): 10/08/17 04:23 Ary Hill is an 87 year old female, whose past medical history includes C.diff, IBS, dyslipidemia, and osteoarthritis, who presents to the Emergency department complaining of diarrhea. Patient states she has been experiencing multiple episodes of diarrhea and abdominal cramping. Patient reports she was recently treated for a UTI with antibiotics, which she reports she completed. Patient denies any fever, chills, chest pain, shortness of breath, nausea, vomiting, urinary symptoms, headache, dizziness, or any other complaints. Time/Duration: Other (tonight) Symptom Onset: Gradual Symptom Course: Unchanged Activities at Onset: Light Context: Home Past Medical History - Provider Review Nursing Documentation Reviewed: Yes - Infectious Disease Hx of Infectious Diseases: None - Tetanus Immunization Tetanus Immunization: Unknown - Cardiac Hx Cardiac Disorders: Yes Hx Hypertension: No - Pulmonary Hx Respiratory Disorders: Yes (SMOKED CIGARETTES BEFORE QUIT PK EVERY OTHER DAY) Hx Tuberculosis: No - Neurological Hx Dizziness: Yes - HEENT Hx HEENT Disorder: Yes Hx Cataracts: Yes 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) - Renal Hx Renal Disorder: No - Endocrine/Metabolic Hx Endocrine Disorders: No - Hematological/Oncological Hx Blood Disorders: No Hx Cancer: No - Integumentary Hx Dermatological Disorder: Yes - Musculoskeletal/Rheumatological Hx Falls: No - Gastrointestinal Hx Gastrointestinal Disorders: Yes (h/o c diff,ibs,appendectomy) - Genitourinary/Gynecological Hx Genitourinary Disorders: Yes (uti) Hx Reproductive Disorders: No - Psychiatric Hx Anxiety: Yes Hx Depression: Yes Hx Substance Use: No - Past Surgical History Past Surgical History: Non-Contributing - Surgical History Hx Appendectomy: Yes - Anesthesia Hx Anesthesia: Yes Hx Anesthesia Reactions: No Hx Malignant Hyperthermia: No - Suicidal Assessment Feels Threatened In Home Enviroment: No Family/Social History - Physician Review Nursing Documentation Reviewed: Yes Family/Social History: Unknown Family HX Smoking Status: Former Smoker Hx Alcohol Use: No Hx Substance Use: No Hx Substance Use Treatment: No Allergies/Home Meds Allergies/Adverse Reactions: Allergies tetracycline Allergy (Severe, Verified 10/08/17 04:53) ANAPHYLAXIS Review of Systems - Physician Review All systems were reviewed & negative as marked: Yes - Review of Systems Constitutional: Normal. absent: Fevers Eyes: Normal ENT: Normal Respiratory: Normal. absent: SOB, Cough Cardiovascular: Normal. absent: Chest Pain Gastrointestinal: Abdominal Pain, Diarrhea. absent: Vomiting Genitourinary Female: Normal. absent: Dysuria, Frequency, Hematuria, Urine Output Changes Musculoskeletal: Normal. absent: Back Pain, Neck Pain Skin: Normal. absent: Rash Neurological: Normal. absent: Headache, Dizziness Endocrine: Normal Hemo/Lymphatic: Normal Psychiatric: Normal Physical Exam Vital Signs Reviewed: Yes Vital Signs Temp Pulse Resp BP Pulse Ox 10/08/17 04:05 97.7 F 94 H 18 136/70 98 Temperature: Afebrile Blood Pressure: Normal Pulse: Regular Respiratory Rate: Normal Appearance: Positive for: Well-Appearing, Non-Toxic, Comfortable Pain Distress: None Mental Status: Positive for: Alert and Oriented X 3 - Systems Exam Head: Present: Atraumatic, Normocephalic Pupils: Present: PERRL Extroacular Muscles: Present: EOMI Conjunctiva: Present: Normal Mouth: Present: Moist Mucous Membranes Neck: Present: Normal Range of Motion Respiratory/Chest: Present: Clear to Auscultation, Good Air Exchange. No: Respiratory Distress, Accessory Muscle Use Cardiovascular: Present: Regular Rate and Rhythm, Normal S1, S2. No: Murmurs Abdomen: Present: Normal Bowel Sounds. No: Tenderness, Distention, Peritoneal Signs Back: Present: Normal Inspection Upper Extremity: Present: Normal Inspection. No: Cyanosis, Edema Lower Extremity: Present: Normal Inspection. No: Edema Neurological: Present: GCS=15, CN II-XII Intact, Speech Normal Skin: Present: Warm, Dry, Normal Color. No: Rashes Psychiatric: Present: Alert, Oriented x 3, Normal Insight, Normal Concentration Medical Decision Making ED Course and Treatment: 10/08/17 04:23 Impression: 87 year old female complaining of diarrhea and abdominal cramping since yesterday. Plan: -- Labs, lipase -- Reassess and disposition Prior Visits: Notes and results from previous visits were reviewed. On 09/16/2017, pt was seen in the Emergency department for depression. Pt was admitted to the hospital for further evaluation. Progress Notes: 10/08/17 06:21 Case was d/w PMD Dr.Everett well familiar with the patient.Request pt. be placed on Flagyl meds.Will f/u on C.Dificil studies.Pt. for d/c follow up in his office. Explained in full to the patient who understands and agrees.Pt. currently remains asymptomatic w/o any complaints. - Lab Interpretations Lab Results: 10/08/17 04:30 10/08/17 04:30 Lab Results 10/08/17 04:30: WBC 12.7 H D, RBC 3.30 L, Hgb 10.1 L, Hct 31.7 L, MCV 96.1, MCH 30.6, MCHC 31.9, RDW 13.9, Plt Count 298, MPV 8.9 10/08/17 04:30: Sodium 134, Potassium 4.9, Chloride 97 L, Carbon Dioxide 27, Anion Gap 16, BUN 18, Creatinine 1.0, Est GFR ( Amer) > 60, Est GFR (Non- Af Amer) 52, Random Glucose 108, Calcium 9.7, Total Bilirubin 0.9, AST 28, ALT 23, Alkaline Phosphatase 95, Total Protein 7.1, Albumin 3.5, Globulin 3.6, Albumin/Globulin Ratio 1.0 L, Lipase 374 H - Medication Orders Current Medication Orders: Discontinued Medications Famotidine (Pepcid) 20 mg IVP STAT STA Stop: 10/08/17 04:36 Last Admin: 10/08/17 04:51 Dose: 20 mg IVP Administration Document 10/08/17 04:51 AB (Rec: 10/08/17 04:51 AB [id number]) Charges for Administration # of IVP Administrations 1 Sodium Chloride (Sodium Chloride 0.9%) 1,000 mls @ 999 mls/hr IV .Q1H1M STA Stop: 10/08/17 05:35 Last Admin: 10/08/17 04:51 Dose: 999 mls/hr eMAR Start Stop Document 10/08/17 04:51 AB (Rec: 10/08/17 04:51 AB [id number]) Intravenous Solution Start Date 10/08/17 Start Time 04:51 End Date 10/08/17 End time 05:51 Total Infusion Time 60 Morphine Sulfate (Morphine) 2 mg IVP STAT STA Stop: 10/08/17 04:38 Last Admin: 10/08/17 04:50 Dose: 2 mg IVP Administration Document 10/08/17 04:50 AB (Rec: 10/08/17 04:51 AB [id number]) Charges for Administration # of IVP Administrations 1 Ondansetron HCl (Zofran Inj) 4 mg IVP ONCE ONE Stop: 10/08/17 04:38 Last Admin: 10/08/17 04:51 Dose: 4 mg IVP Administration Document 10/08/17 04:51 AB (Rec: 10/08/17 04:51 AB [id number]) Charges for Administration # of IVP Administrations 1 - Scribe Statement The provider has reviewed the documentation as recorded by the Yakov Nieto Provider Scribe Attestation: All medical record entries made by the Scribe were at my direction and personally dictated by me. I have reviewed the chart and agree that the record accurately reflects my personal performance of the history, physical exam, medical decision making, and the department course for this patient. I have also personally directed, reviewed, and agree with the discharge instructions and disposition. Disposition/Present on Arrival - Present on Arrival Any Indicators Present on Arrival: No History of DVT/PE: No History of Uncontrolled Diabetes: No Urinary Catheter: No History of Decub. Ulcer: No History Surgical Site Infection Following: None - Disposition Have Diagnosis and Disposition been Completed?: Yes Diagnosis: Diarrhea, Enteritis Disposition: HOME/ ROUTINE Disposition Time: 06:19 Patient Plan: Discharge Condition: GOOD Additional Instructions: Drink plenty of liquids/take meds as prescribed/follow up with this week as per his instructions. Prescriptions: Metronidazole 500 mg PO TID #21 tablet Forms: [employer] ([place]ian)
[2017-10-08] MEDS ORDERED: Sodium Chloride 0.9% 1,000 ML IV STA (04:35)
[2017-10-08] MEDS ORDERED: Morphine 5 MG/ML SYRINGE IVP STA (04:37)
[2017-10-08 05:08] LABS: HEMOGLOBIN 10.1 g/dL (12.0-16.0); MEAN CELL VOLUME 96.1 fl (80.0-105.0); MEAN CORPUSCULAR HEMOGLOBIN 30.6 pg (25.0-35.0); MEAN CORPUSCULAR HGB CONC 31.9 g/dl (31.0-37.0); MEAN PLATELET VOLUME 8.9 fl (7.0-11.0); RBC 3.3 10^6/uL (3.5-6.1); RED CELL DISTRIBUTION WIDTH 13.9 % (11.5-14.5); WHITE BLOOD COUNT 12.7 10^3/ul (4.5-11.0)
[2017-10-08 05:20] LABS: ALBUMIN 3.5 g/dL (3.0-4.8); ALT/SGPT 23 U/L (7-56); AST/SGOT 28 U/L (14-36); BLOOD UREA NITROGEN 18 mg/dL (7-21); CALCIUM 9.7 mg/dL (8.4-10.5); GFR AFRICAN-AMERICAN > 60; GFR NON-AFRICAN AMERICAN 52; LIPASE 374 U/L (23-300)
[2017-10-08 06:22] VITALS: O2SAT 100
[2017-10-08 06:51] VITALS: BP 115/70; PULSE 89; RESP 18
== END 2017-10-08 06:50 | disposition home or self-care (01) ==
LOC: ED 03:59
DX: K52.9 Noninfective gastroenteritis and colitis, unspecified (principal)
CPT/HCPCS: 80053; 83690; 85027; 87324; 96361; 96374; 96375; 99284; J2270; J2405; J7040

== ENCOUNTER 2017-10-22 04:14 | Inpatient (IN) | payer MEDICARE, OTHER ==
--- NOTE | 2017-10-22 04:50 | ED PDOC ---
Arrival/HPI - General Chief Complaint: Medical Clearance Time Seen by Provider: 10/22/17 04:23 Historian: Patient, EMS - History of Present Illness Narrative History of Present Illness (Text): 10/22/17 04:50 Ary Hill is an 80 year old female, whose past medical history includes depression, anxiety, C.diff, IBS, and dyslipidemia, who presents to the Emergency department complaining of anxiety. Patient states she woke up tonight very anxious and scared. Patient states she took her blood pressure, which she noted to be elevated. Patient states she took Klonopin at home, but reports she still feels nervous. Patient denies any fever, chills, chest pain, shortness of breath, nausea, vomiting,urinary symptoms, back pain, neck pain, headache, dizziness, or any other complaints. 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) - Renal Hx Renal Disorder: No - Endocrine/Metabolic Hx Endocrine Disorders: No - Hematological/Oncological Hx Blood Disorders: No Hx Cancer: No - Integumentary Hx Dermatological Disorder: No - Musculoskeletal/Rheumatological Hx Arthritis: Yes Hx Falls: No - Gastrointestinal Hx Gastrointestinal Disorders: Yes (h/o c diff,ibs,appendectomy) Hx Irritable Bowel: Yes - Genitourinary/Gynecological Hx Genitourinary Disorders: Yes (uti) Hx Reproductive Disorders: No Hx Urinary Tract Infection: Yes - Psychiatric Hx Anxiety: Yes Hx Depression: Yes Hx Panic Disorder: Yes Hx Substance Use: No - Past Surgical History Past Surgical History: Non-Contributing - Surgical History Hx Appendectomy: Yes - Anesthesia Hx Anesthesia: Yes Hx Anesthesia Reactions: No Hx Malignant Hyperthermia: No - Suicidal Assessment Feels Threatened In Home Enviroment: No Family/Social History - Physician Review Nursing Documentation Reviewed: Yes Family/Social History: Unknown Family HX Smoking Status: Former Smoker Hx Alcohol Use: No Hx Substance Use: No Hx Substance Use Treatment: No Allergies/Home Meds Allergies/Adverse Reactions: Allergies tetracycline Allergy (Severe, Verified 10/22/17 04:30) ANAPHYLAXIS Review of Systems - Physician Review All systems were reviewed & negative as marked: Yes - Review of Systems Constitutional: Normal. absent: Fevers Eyes: Normal ENT: Normal Respiratory: Normal. absent: SOB, Cough Cardiovascular: Other (+eleated blood pressure). absent: Chest Pain Gastrointestinal: Normal. absent: Abdominal Pain, Diarrhea, Nausea, Vomiting Genitourinary Female: Normal. absent: Dysuria, Frequency, Hematuria, Urine Output Changes Musculoskeletal: Normal. absent: Neck Pain Skin: Normal. absent: Rash Neurological: Normal. absent: Headache, Dizziness Endocrine: Normal Hemo/Lymphatic: Normal Psychiatric: Anxiety Physical Exam Vital Signs Reviewed: Yes Vital Signs Temp Pulse Resp BP Pulse Ox 10/22/17 06:50 120 H 22 123/70 97 10/22/17 04:30 98.7 F 120 H 18 103/62 96 Temperature: Afebrile Blood Pressure: Normal Pulse: Regular Respiratory Rate: Normal Appearance: Positive for: Well-Appearing, Non-Toxic, Comfortable Pain Distress: None Mental Status: Positive for: Alert and Oriented X 3, other (Anxious) - Systems Exam Head: Present: Atraumatic, Normocephalic Pupils: Present: PERRL Extroacular Muscles: Present: EOMI Conjunctiva: Present: Normal Mouth: Present: Moist Mucous Membranes Neck: Present: Normal Range of Motion Respiratory/Chest: Present: Clear to Auscultation, Good Air Exchange. No: Respiratory Distress, Accessory Muscle Use Cardiovascular: Present: Regular Rate and Rhythm, Normal S1, S2. No: Murmurs Abdomen: Present: Normal Bowel Sounds. No: Tenderness, Distention, Peritoneal Signs Back: Present: Normal Inspection Upper Extremity: Present: Normal Inspection. No: Cyanosis, Edema Lower Extremity: Present: Normal Inspection. No: Edema Neurological: Present: GCS=15, CN II-XII Intact, Speech Normal Skin: Present: Warm, Dry, Normal Color. No: Rashes Psychiatric: Present: Alert, Oriented x 3, Normal Insight, Normal Concentration , Anxious Medical Decision Making ED Course and Treatment: 10/22/17 04:50 Impression: 87 year old female presented for anxiety and high blood pressure. Plan: -- EKG -- Chest X-ray -- Labs, cardiac enzymes, alcohol level -- Urinalysis, urine drug screen -- Reassess and disposition Prior Visits: Notes and results from previous visits were reviewed. Progress Notes: 10/22/17 05:19 Chest X-ray reviewed, shows no acute processes. 10/22/17 05:22 Reviewed EKG, sinus tachycardia at 119 bpm. Premature supraventricular complexes. Non-specific ST/T wave changes. 10/22/17 05:43 Labs noted. WBC:21. VBG, Urinalysis, blood cultures, urine cultures, IV fluids ordered. Case discussed with Dr. Floyd, who is aware and agrees with plan. Accepts pt in to his service. States pt has a history of C. diff. Pt noted to have gone to the bathroom multiple times with diarrhea. Dr. Floyd requests pt be started on Vancomycin. - Lab Interpretations Lab Results: 10/22/17 05:00 10/22/17 05:00 Lab Results 10/22/17 05:45: pO2 22 L, VBG pH 7.34, VBG pCO2 55.0, VBG HCO3 29.7 H, VBG Total CO2 31.4 H, VBG O2 Sat (Calc) 45.4, VBG Base Excess 2.6 H, VBG Potassium 4.7, Glucose 109 H, Lactate 1.7, FiO2 21.0, Sodium 137.0, Chloride 105.0, Venous Blood Potassium 4.7 10/22/17 05:00: Phosphorus 3.6, Magnesium 1.9 10/22/17 05:00: PT 11.8, INR 1.03, APTT 30.2 10/22/17 05:00: Urine Opiates Screen Negative, Urine Methadone Screen Negative, Ur Barbiturates Screen Negative, Ur Phencyclidine Scrn Negative, Ur Amphetamines Screen Negative, U Benzodiazepines Scrn Negative, U Oth Cocaine Metabols Negative, U Cannabinoids Screen Negative 10/22/17 05:00: Alcohol, Quantitative < 10 10/22/17 05:00: Urine Color yellow, Urine Appearance Slight-cloudy, Urine pH 6.5 , Ur Specific [place] 1.015, Urine Protein Trace H, Urine Glucose (UA) Negative , Urine Ketones Negative, Urine Blood Moderate H, Urine Nitrate Positive H, Urine Bilirubin Negative, Urine Urobilinogen 0.2, Ur Leukocyte Esterase Small H , Urine RBC 20 - 25, Urine WBC 2 - 5, Ur Epithelial Cells 10 - 12, Amorphous Sediment Small, Urine Bacteria Mod 10/22/17 05:00: WBC 21.6 H D, RBC 3.67, Hgb 11.2 L, Hct 35.3 L, MCV 96.2, MCH 30.5, MCHC 31.7, RDW 14.7 H, Plt Count 311, MPV 8.9 10/22/17 05:00: Sodium 139, Potassium 4.8, Chloride 101, Carbon Dioxide 27, Anion Gap 16, BUN 18, Creatinine 1.2, Est GFR ( Amer) 51, Est GFR (Non- Af Amer) 42, Random Glucose 110, Calcium 9.7, Total Bilirubin 0.7, AST 24, ALT 16, Alkaline Phosphatase 96, Lactate Dehydrogenase 353, Total Creatine Kinase 20 L, Troponin I < 0.01, Total Protein 7.3, Albumin 3.8, Globulin 3.5, Albumin/ Globulin Ratio 1.1 I have reviewed the lab results: Yes - RAD Interpretation Radiology Orders: 10/22/17 04:52 CHEST PORTABLE [RAD] Stat 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 - EKG Interpretation Interpreted by ED Physician: Yes Type: 12 lead EKG - Medication Orders Current Medication Orders: Discontinued Medications Sodium Chloride (Sodium Chloride 0.9%) 1,000 mls @ 999 mls/hr IV .Q1H1M STA Stop: 10/22/17 06:50 Last Admin: 10/22/17 06:14 Dose: 999 mls/hr eMAR Start Stop Document 10/22/17 06:14 CNR (Rec: 10/22/17 06:14 CNR [id number]) Intravenous Solution Start Date 10/22/17 Start Time 06:14 Lorazepam (Ativan) 1 mg IVP ONCE ONE Stop: 10/22/17 05:24 Last Admin: 10/22/17 05:35 Dose: 1 mg IVP Administration Document 10/22/17 05:35 CNR (Rec: 10/22/17 05:36 CNR [id number]) Charges for Administration # of IVP Administrations 1 Vancomycin HCl (Vancocin 25 Mg/Ml (Oral Use)) 250 mg PO ONCE ONE PRN Reason: Protocol Stop: 10/22/17 06:06 Last Admin: 10/22/17 06:21 Dose: 250 mg - Scribe Statement The provider has reviewed the documentation as recorded by the Yakov Nieto Provider Yakov Attestation: All medical record entries made by the Barbaraibe were at my direction and personally dictated by me. I have reviewed the chart and agree that the record accurately reflects my personal performance of the history, physical exam, medical decision making, and the department course for this patient. I have also personally directed, reviewed, and agree with the discharge instructions and disposition. Disposition/Present on Arrival - Present on Arrival Any Indicators Present on Arrival: No History of DVT/PE: No History of Uncontrolled Diabetes: No Urinary Catheter: No History of Decub. Ulcer: No History Surgical Site Infection Following: None - Disposition Have Diagnosis and Disposition been Completed?: Yes Diagnosis: SIRS (systemic inflammatory response syndrome), Pseudomembranous colitis, Anxiety Disposition: HOSPITALIZED Disposition Time: 07:08 Patient Plan: Admission Condition: STABLE Referrals: Oleg Floyd MD [Primary Care Provider] - Follow up with primary Forms: [employer] (Faroese)
[2017-10-22 05:22] LABS: HEMOGLOBIN 11.2 g/dL (12.0-16.0); MEAN CELL VOLUME 96.2 fl (80.0-105.0); MEAN CORPUSCULAR HEMOGLOBIN 30.5 pg (25.0-35.0); MEAN CORPUSCULAR HGB CONC 31.7 g/dl (31.0-37.0); MEAN PLATELET VOLUME 8.9 fl (7.0-11.0); PH,URINE 6.5 (4.7-8.0); RBC 3.67 10^6/uL (3.5-6.1); RED CELL DISTRIBUTION WIDTH 14.7 % (11.5-14.5); URINE BILIRUBIN NEGATIVE (NEGATIVE); URINE BLOOD MODERATE (NEGATIVE); URINE GLUCOSE (UA) NEGATIVE (NEGATIVE); URINE LEUKOCYTE ESTERASE SMALL Leu/uL (NEGATIVE); URINE NITRATE POSITIVE (NEGATIVE); URINE PROTEIN TRACE mg/dL (<30 mg/dL); URINE UROBILINOGEN 0.2 E.U./dL (<1 E.U./dL); WHITE BLOOD COUNT 21.6 10^3/ul (4.5-11.0)
[2017-10-22 05:24] LABS: URINE APPEARANCE SLIGHT-CLOUDY (CLEAR)
[2017-10-22 05:38] LABS: ALB/GLOB RATIO 1.1 (1.1-1.8); ALBUMIN 3.8 g/dL (3.0-4.8); ALT/SGPT 16 U/L (7-56); AST/SGOT 24 U/L (14-36); BLOOD UREA NITROGEN 18 mg/dL (7-21); CALCIUM 9.7 mg/dL (8.4-10.5); GFR AFRICAN-AMERICAN 51; GFR NON-AFRICAN AMERICAN 42
[2017-10-22 05:41] LABS: BARBITURATES, UR NEGATIVE (NEGATIVE); BENZODIAZEPINES, UR NEGATIVE (NEGATIVE); OPIATES, UR NEGATIVE (NEGATIVE); PHENCYCLIDINE, UR NEGATIVE (NEGATIVE); URINE BACTERIA MOD (NEG); URINE RBC 20 - 25 /hpf (0-2)
[2017-10-22 05:42] LABS: URINE AMORPHOUS SEDIMENT SMALL
[2017-10-22 05:49] LABS: TROPONIN I < 0.01 ng/mL
[2017-10-22] MEDS ORDERED: Sodium Chloride 0.9% 1,000 ML IV STA (05:50)
[2017-10-22] MEDS ORDERED: Vancomycin 25 MG/ML PO ONE (06:05)
[2017-10-22 06:43] LABS: MAGNESIUM 1.9 mg/dL (1.7-2.2)
[2017-10-22 07:01] LABS: VENOUS BLOOD GAS BASE EXCESS 2.6 mmol/L (0.0-2.0); VENOUS BLOOD GAS PO2 22 mm/Hg (30-55); VENOUS BLOOD PH 7.34 (7.32-7.43)
[2017-10-22 07:03] LABS: INR 1.03 (0.93-1.08); PARTIAL THROMBOPLASTIN TIME 30.2 Seconds (25.1-36.5); PROTHROMBIN TIME 11.8 SECONDS (9.4-12.5)
[2017-10-22] MEDS ORDERED: metroNIDAZOLE IV 500 mg/100 ml 500 MG/100 ML BAG IVPB STA (07:18)
--- NOTE | 2017-10-22 09:33 | RAD ---
HISTORY: medical clearance COMPARISON: 09/16/2017. FINDINGS: LUNGS: The lungs are well inflated and clear. PLEURA: No significant pleural effusion identified, no pneumothorax apparent. CARDIOVASCULAR: Normal. OSSEOUS STRUCTURES: No significant abnormalities. VISUALIZED UPPER ABDOMEN: Normal. OTHER FINDINGS: None. IMPRESSION: No active pulmonary disease.
--- NOTE | 2017-10-22 09:46 | CARD ---
APPROVED REPORT EKG Measurement Heart [id number] VT [id number] [id number] <Conclusion> Sinus tachycardia Leftward axis NSSTW changes No change
[2017-10-22] MEDS: Vancomycin 25 MG/ML PO SCH ×4 (10:00→23:25)
--- NOTE | 2017-10-22 11:29 | HP ---
CHIEF COMPLAINT AND HISTORY OF PRESENT ILLNESS: This is an 87-year-old female who is coming here to the hospital with a past medical history of C. diff, anxiety, dyslipidemia, pneumonia. The patient says she woke up this morning. She was very anxious. She was having loose bowel movements. The patient has recently been treated for C. diff with Flagyl at home. She has no complaints of any headaches. She states she has a difficult time sleeping. She has no abdominal pain. No dysuria. No nausea. No vomiting. No fevers. No chills. No weakness of the arms or the legs. REVIEW OF SYMPTOMS: All other review of symptoms are within normal limits except that was mentioned. ALLERGIES: TETRACYCLINE. HOME MEDICATIONS: Have been reviewed on the [facility]. PAST MEDICAL HISTORY: Dyslipidemia, osteoarthritis, community-acquired pneumonia, UTI, depression, dyslipidemia, C. diff. PAST SURGICAL HISTORY: Ovarian cyst surgery and carpal tunnel surgery. PHYSICAL EXAMINATION: VITAL SIGNS: Temperature is 99.4, pulse of 102, blood pressure is 105/62, respirations 18, O2 saturation 98%. Height is 5 feet 4. Weight is 112 pounds. BMI is 19.2. GENERAL: The patient lying in bed, uncomfortable, and in no acute distress. HEENT: Atraumatic and normocephalic. Anicteric sclerae. Moist mucosa. [place] conjunctivae. No oral lesions. NECK: No JVD, anterior and posterior adenopathy, thyromegaly, or bruits. CARDIOVASCULAR: S1 and S2 regular. No murmur, rubs, or gallop. LUNGS: Clear to auscultation bilaterally. No wheezes, rales, or rhonchi. ABDOMEN: Bowel sounds are positive. Soft, nontender and nondistended. No hepatosplenomegaly. No rebound and no guarding EXTREMITIES: No cyanosis, clubbing, or edema. NEUROLOGIC: No facial asymmetry. Tongue is midline. No uvula deviation. Power is 5/5 upper extremity and lower extremity. Sensation intact in upper extremity and lower extremity. PSYCHIATRIC: She is awake, alert and oriented x3. No anxiety or depression. She has normal affect. GENITOURINARY: No CVA tenderness. VASCULAR: 2+ pulses in the carotid pulses and pedal pulses. SKIN: No erythema or nodules. SPINE: Shows normal curvature. LABORATORY DATA: Labs have been reviewed. White count of 21.6, hemoglobin 11.2. Urine just showed that there is nitrites that are positive. Bilirubin is positive. ASSESSMENT: 1. Sepsis, rule out urinary tract infection, rule out Clostridium difficile. 2. Depression. 3. Anxiety. 4. Osteoarthritis. 5. Dyslipidemia. PLAN: The patient is going to be admitted to the hospital. She has an elevated white count. She had loose bowel movements. I am concerned about C. diff. The patient is on her Paxil and mirtazapine. I will continue that. She is receiving vancomycin for antibiotics. I have placed her on a regular diet. I will get Dr. Álvarez on consultation. Urine cultures and blood cultures have been ordered. She has also had a C. diff that will be checked. Oleg Floyd MD
[2017-10-22 16:45] VITALS: BMI 19.2
[2017-10-22] MEDS ORDERED: Pneumococcal 23-Valent Vaccine IM ONE (16:46)
[2017-10-22] MEDS ORDERED: Influenza Vaccine 60 mcg/0.5 mL SYR (4YR UP) IM ONE (16:46)
--- NOTE | 2017-10-22 21:12 | CP.PCM.CON ---
History of Present Illness - History of Present Illness History of Present Illness: 87 year old female with PMH of depression, cataracts, right ear deafness, history of C. diff. infection, irritable bowel syndrome, S/P appendectomy came in to [facility] because of anxiety. She was also having loose bowel movement, and this morning alone she has had 3 loose watery BM's. She was recently admitted last month in [facility] for pneumonia and UTI. She denies fever or chills, no nausea or vomiting, no chest pain, no SOB, no headache or dizziness, some abdominal discomfort, no dysuria, no cough or colds, no sore throat. Infectious Diseases consult is requested to further evaluate and manage. 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) - RENAL Hx Chronic Kidney Disease: No - ENDOCRINE/METABOLIC Hx Endocrine Disorders: No - HEMATOLOGICAL/ONCOLOGICAL Hx Blood Disorders: No Hx Cancer: No - INTEGUMENTARY Hx Dermatological Problems: No - MUSCULOSKELETAL/RHEUMATOLOGICAL Hx Arthritis: Yes Hx Falls: No - GASTROINTESTINAL Hx Gastrointestinal Disorders: Yes (h/o c diff,ibs,appendectomy) Hx Irritable Bowel: Yes - GENITOURINARY/GYNECOLOGICAL Hx Genitourinary Disorders: Yes (uti) Hx Reproductive Disorders: No Hx Urinary Tract Infection: Yes - PSYCHIATRIC Hx Anxiety: Yes Hx Depression: Yes Hx Panic Symptoms: Yes Hx Substance Use: No - SURGICAL HISTORY Hx Appendectomy: Yes - ANESTHESIA Hx Anesthesia: Yes Hx Anesthesia Reactions: No Hx Malignant Hyperthermia: No Meds Allergies/Adverse Reactions: Allergies Allergy/AdvReac Type Severity Reaction Status Date / Time tetracycline Allergy Severe ANAPHYLAXIS Verified 10/22/17 04:30 - Medications Medications: Current Medications Clonazepam (Klonopin) 1 mg PO 0800,1400,1800 EZEQUIEL PRN Reason: Protocol Mirtazapine (Remeron) 30 mg PO HS EZEQUIEL Paroxetine HCl (Paxil) 30 mg PO HS EZEQUIEL Vancomycin HCl (Vancocin 25 Mg/Ml (Oral Use)) 250 mg PO QID EZEQUIEL PRN Reason: Protocol Physical Exam - Constitutional Appears: Non-toxic - Head Exam Head Exam: NORMAL INSPECTION - Neck Exam Neck exam: Negative for: Meningismus - Respiratory Exam Respiratory Exam: Decreased Breath Sounds - Cardiovascular Exam Cardiovascular Exam: +S1, +S2 - GI/Abdominal Exam GI & Abdominal Exam: Soft. absent: Tenderness Results - Vital Signs Recent Vital Signs: Last Vital Signs Temp 99.4 F 10/22/17 08:00 Pulse 102 H 10/22/17 08:00 Resp 18 10/22/17 08:00 BP 105/60 10/22/17 08:00 Pulse Ox 98 10/22/17 08:00 - Labs Result Diagrams: 10/22/17 05:00 10/22/17 05:00 Assessment & Plan - Assessment and Plan (Free Text) Plan: Assessment sepsis due to severe C. diff. colitis history of sepsis due to left lower lobe community-acquired pneumonia R/O UTI from Klebsiella depression cataracts right ear deafness history of C. diff. infection irritable bowel syndrome S/P appendectomy Plan stool for C diff. Ag and toxin are positive - started PO Vancomycin and will monitor clinical response
--- NOTE | 2017-10-23 07:28 | PN ---
DATE: 10/23/2017 SUBJECTIVE: The patient has no complaints of any chest pain. No shortness of breath. No headaches or dizziness. PHYSICAL EXAMINATION: VITAL SIGNS: Temperature is 100.4, pulse of 98, blood pressure is 110/68, respirations 18. GENERAL: The patient is lying in bed, flat, comfortable. HEENT: No oral lesion. Anicteric sclerae. Moist mucosa. NECK: No JVD, adenopathy, or thyromegaly. CARDIOVASCULAR: S1 and S2, regular. No murmurs, rubs, or gallops. LUNGS: Clear to auscultation bilaterally. No wheeze, rales, or rhonchi. ABDOMEN: Bowel sounds are positive, soft, nontender and nondistended. EXTREMITIES: No cyanosis, clubbing or edema. LABORATORY DATA: Labs are pending. ASSESSMENT: 1. Sepsis, most likely Clostridium difficile colitis. 2. Depression. 3. Anxiety. 4. Osteoarthritis. 5. Dyslipidemia. PLAN: The patient is currently comfortable. She has blood cultures x2 that were negative. She has C. diff that is positive. She is on vancomycin. The patient is being followed by infectious disease. She is going to continue with Klonopin and Paxil. I did call the patient's daughter yesterday. I did give her an update on the patient's diagnoses and plan of care. The patient is extremely anxious. We will also get consultation with Psychiatry. Oleg Floyd MD
[2017-10-23 08:36] LABS: HEMOGLOBIN 10.1 g/dL (12.0-16.0); MEAN CELL VOLUME 96.7 fl (80.0-105.0); MEAN CORPUSCULAR HEMOGLOBIN 30.3 pg (25.0-35.0); MEAN CORPUSCULAR HGB CONC 31.4 g/dl (31.0-37.0); MEAN PLATELET VOLUME 9.1 fl (7.0-11.0); RBC 3.33 10^6/uL (3.5-6.1); WHITE BLOOD COUNT 15.2 10^3/ul (4.5-11.0)
[2017-10-23 08:41] LABS: ALBUMIN 3.3 g/dL (3.0-4.8); CALCIUM 9.1 mg/dL (8.4-10.5)
[2017-10-23] MEDS ORDERED: Sodium Chloride 0.9% 1,000 ML IV SCH (09:15)
[2017-10-23] MEDS: Vancomycin 25 MG/ML PO SCH ×4 (09:39→21:27)
--- NOTE | 2017-10-23 21:45 | CON ---
DATE: HISTORY OF PRESENT ILLNESS: Shortly, the patient is an 87-year-old female, long history of anxiety spectrum disorder, major depressive disorder, multiple medical issues including frequent urinary tract infection as well as pneumonia as well as C. diff. The patient was admitted on the medical side for sepsis. Due to C. diff colitis, psych consult was called for evaluation of anxiety as well as depression and med management. 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 The patient was discharged from [facility] on 09/2017. The patient was sent to [facility]. The patient reported that she was discharged from there last Sunday and yesterday she started to have abdominal pain and multiple episodes of diarrhea, that is why she came to the hospital. The patient reported that she was doing well in regards of the mood and in regard of anxiety symptoms. The patient reported that she was compliant with the medication reported, to tolerate that medications well. The patient reported that she has followup appointment with Dr. Bryson Pompa at the beginning of November. The patient denied thoughts of harming herself or others. Denied any intent or plan. Vital signs reviewed. The patient had fever of 100.4. The patient had tachycardiac 100, blood pressure 141/61, respiration 20, and oxygen saturation is 95. Medications reviewed. Tylenol and Klonopin 1 mg three times a day scheduled, Remeron 30 mg at the nighttime, Paxil 30 mg at the nighttime scheduled, sodium chloride, and vancomycin. Labs reviewed. WBC cells was 21 at the time of admission and today is 15. Coagulation reviewed. Chemistry reviewed. Urinalysis showed leukocyte esterase small. Toxicology is negative. PAST PSYCHIATRIC HISTORY: The patient has multiple psych admissions to [facility], most recent was in 2016, in January for depression. The patient's depression and anxiety related to the fact that her only grandson was not returning to family folds and disappeared from their life. The situation is still the same. MENTAL STATUS EXAMINATION: The patient appears to be sleepy. The patient reports that she was not feeling well. The patient reports that every half an hour, she needs to go to the bathroom to move her bowel and the patient reported that she was feeling disgusted. Affect was constricted. Thought process circumstantial and over-inclusive. Thought content, the patient denied visual, auditory, tactile hallucinations. Denied paranoid ideation. The patient denied thoughts of harming herself or others. Denied intents or plan. Insight and judgment seems to be fair. Impulses are well controlled. Collateral information from the nursing staff, the patient is compliant with the medication, at times is very anxious. IMPRESSION: As per history, major depressive disorder, panic disorder, and generalized anxiety disorder, rule out mood disorder, anxiety disorder due to general medical condition. PLAN: Continue current management. Continue Klonopin 1 mg three times a day. Continue Remeron 30 mg at the nighttime for depression and insomnia and continue Paxil 30 mg at the nighttime for depression and anxiety. We will follow up and advise accordingly. Should you have any questions, give me a call back. Thank you very much for letting me participate in the care of your patient. Karo Smiley MD MTDNéstor
--- NOTE | 2017-10-24 04:27 | PN ---
DATE: 10/23/2017 SUBJECTIVE: The patient is in bed in no acute distress, was seen early this morning. PHYSICAL EXAMINATION: On exam; VITAL SIGNS: Temperature is 98, T-max is 100.4, blood pressure is 130/90, respiratory rate of 20, heart rate of 112. HEENT: Unremarkable. NECK: Supple. LUNGS: Decreased breath sounds. HEART: Normal S1, S2. ABDOMEN: Soft. LABORATORY EXAMINATION: Reveals a white count of 15,000, hemoglobin of 10. Chemistries reveals a BUN of 21, creatinine of 1.3. Microbiology reveals the blood cultures are negative. The urine cultures have gram-negative lópez and gram-positive cocci. Stool for C. Diff antigen and toxin positive. Review of orders reveals the patient to be on Flagyl and actually now the patient is only on p.o. vancomycin. ASSESSMENT/PLAN: This is an 87-year-old female seen early this morning in room 578, bed 1, with sepsis secondary to severe pseudomembranous colitis on p.o. vancomycin, will complete 14 days. We will follow with you. Sebastian Álvarez MD
[2017-10-24 04:50] VITALS: RESP 20
[2017-10-24 08:00] VITALS: BP 122/57; PULSE 82; TEMP 98.4; O2SAT 98
[2017-10-24 08:14] LABS: HEMOGLOBIN 9.7 g/dL (12.0-16.0); MEAN CELL VOLUME 96.5 fl (80.0-105.0); MEAN CORPUSCULAR HEMOGLOBIN 30.5 pg (25.0-35.0); MEAN CORPUSCULAR HGB CONC 31.6 g/dl (31.0-37.0); MEAN PLATELET VOLUME 9.2 fl (7.0-11.0); RBC 3.18 10^6/uL (3.5-6.1); RED CELL DISTRIBUTION WIDTH 14.7 % (11.5-14.5); WHITE BLOOD COUNT 8.1 10^3/ul (4.5-11.0)
[2017-10-24 08:32] LABS: ALBUMIN 3.1 g/dL (3.0-4.8); ALT/SGPT 23 U/L (7-56); AST/SGOT 19 U/L (14-36); BLOOD UREA NITROGEN 20 mg/dL (7-21); CALCIUM 9.1 mg/dL (8.4-10.5); GFR AFRICAN-AMERICAN > 60; GFR NON-AFRICAN AMERICAN 52
[2017-10-24] MEDS: Vancomycin 25 MG/ML PO SCH ×2 (09:31→14:50)
--- NOTE | 2017-10-24 12:06 | PN ---
DATE: SUBJECTIVE: The patient has no complaints of any chest pain, no shortness of breath. She says her diarrhea is still bad, but better. PHYSICAL EXAMINATION VITAL SIGNS: Temperature is 97.8, pulse is 94, blood pressure 122/67, respirations 20. GENERAL: The patient is lying in bed, flat, comfortable. HEENT: No oral lesion. Anicteric sclerae. Moist mucosa. NECK: No JVD, adenopathy, or thyromegaly. CARDIOVASCULAR: S1 and S2, regular. No murmurs, rubs, or gallops. LUNGS: Clear to auscultation bilaterally. No wheeze, rales, or rhonchi. ABDOMEN: Bowel sounds are positive. Soft, nontender and nondistended. EXTREMITIES: No cyanosis, clubbing or edema. DATA: Labs are pending. ASSESSMENT 1. Clostridium difficile colitis. 2. Anxiety. 3. Sepsis secondary to Clostridium difficile. 4. Depression. 5. Osteoarthritis. 6. Dyslipidemia. PLAN: The patient is improving. She is on Klonopin and Remeron for her anxiety and depression, this will be continued. I appreciate the input of the Psychiatry. The patient is on IV fluids. She is on vancomycin. She had creatinine that was to 1.3 so the IV fluids were placed. I will discontinue the patient's IV fluid at this point. I did leave a message to the patient's daughter yesterday to give them an update on the patient's diagnosis and plan of care. Oleg Floyd MD
--- NOTE | 2017-10-24 21:48 | PN ---
DATE: SUBJECTIVE: The patient was followed up today. The patient was admitted on the medical side for evaluation and stabilization and treatment of sepsis due to Clostridium difficile. Patient has anxiety and depression that is why this technical document writer was involved into the patient care. Patient was resumed on all of the psychotropic medication. Patient seems to be tolerating them well. Today, patient was followed up for medication management and therapy. The patient appears to be sleepy, reported that she did not have a good night sleep. Patient reported that her diarrhea is subsiding and patient reported her mood to be "not that bad." Later on, nursing staff called this technical document writer reporting that the patient complained of uncontrollable anxiety and start dose of Xanax 0.25 mg was given to the patient. The patient reported some improvement with this symptoms. The patient's daughter contacted this technical document writer and the patient gave consent for collateral information as well as providing treatment plan. Prolonged conversation was took place today over the phone with the patient's daughter and treatment plan was discussed in detail. The patient's daughter was advised to keep her followup appointment with Dr. Bryson Pompa. The patient's daughter was educated that this technical document writer will follow the patient up on the medical side, but she needs to have appointment with outpatient psychiatrist. OBJECTIVE: VITAL SIGNS: Reviewed. Temperature 98.4, pulse 82, blood pressure 122/57, respirations 20 and oxygen saturations is 98. MEDICATIONS: Reviewed. Klonopin 1 mg three times a day, Remeron 30 mg at the nighttime, Paxil 30 mg and vancomycin. LABORATORY DATA: Reviewed. Most recent was from today. Leukocytosis is trending down. Chemistry also reviewed. Urinalysis reviewed and toxicology reviewed. MENTAL STATUS EXAMINATION: The patient appears to be very thin built, fragile female, anxious looking lady, intermittent eye contact. Mood described not that bad. Affect was constricted. Thought process coherent, goal directed. Thought content; the patient denied visual, auditory, tactile hallucinations. Denied paranoid ideation. The patient denied thoughts of harming herself or others. Denied intents or plan. Insight and judgment seems to be improving. Impulses are well controlled. IMPRESSION: As per history of major depressive disorder, as per history is anxiety and generalized anxiety disorder and panic disorder, rule out anxiety disorder due to general medical condition. PLAN: Continue current management. Continue current medication. Discussed with the patient's daughter, patient gave permission. We will consider to either increase dose of Klonopin or as-needed medication Xanax in case patient will be feeling very anxious. Should you have any questions give me a call back. Thank you very much for letting me participate in care of your patient. Karo Smiley MD
--- NOTE | 2017-10-25 00:09 | PN ---
DATE: 10/24/2017 SUBJECTIVE: The patient is in bed, in no acute distress, nontoxic. PHYSICAL EXAMINATION: VITAL SIGNS: On exam, temperature is 98, blood pressure is 122/50, respiratory rate of 20. HEENT: Unremarkable. NECK: Supple. LUNGS: Have decreased breath sounds. HEART: Normal S1 and S2. ABDOMEN: Soft. LABORATORY DATA: Reveals white count is 8.1, hemoglobin of 9, and platelets of . Chemistries reveal a BUN of 20, creatinine is 1.0. The urine culture is reported Klebsiella MRSA. Klebsiella is pansensitive and the blood cultures are negative. Dr. Floyd's note is reviewed. ASSESSMENT AND PLAN: This is an 87-year-old female seen early this morning in 578, bed 1, admitted with sepsis secondary to severe pseudomembranous colitis, on p.o. vancomycin, will complete 14 days. Case was discussed with the nursing staff. Sebastian Álvarez MD
--- NOTE | 2017-10-25 08:23 | CP.PCM.PCO ---
Addendum Addendum: 10/25/17 08:22 pt was d/c. pt has f/u appt at 's office, pt is not suicidal/homicidal pose no imminent danger to self or others discussed with pt's daughter yesterday about the importance to take meds as prescribed and keep her appointments patient and daughter verbalized understanding.
== END 2017-10-24 16:38 | disposition home or self-care (01) | DRG 872 ==
LOC: ED 04:14 → ERH 07:11 → 5RSO 12:07
PROVIDERS: ADMIT Internal Medicine Nephrology; ATTEND Internal Medicine Nephrology
DX: A41.9 Sepsis, unspecified organism (principal); A04.72 Enterocolitis due to Clostridium difficile, not specified as recurrent; F32.9 Major depressive disorder, single episode, unspecified; F41.0 Panic disorder [episodic paroxysmal anxiety]; F41.1 Generalized anxiety disorder; E78.5 Hyperlipidemia, unspecified; M19.90 Unspecified osteoarthritis, unspecified site; H26.9 Unspecified cataract; H91.91 Unspecified hearing loss, right ear; Z88.1 Allergy status to other antibiotic agents; Z87.891 Personal history of nicotine dependence; Z87.01 Personal history of pneumonia (recurrent); Z87.440 Personal history of urinary (tract) infections

== ENCOUNTER 2017-11-20 15:28 | Inpatient (IN) | payer MEDICARE, OTHER ==
[2017-11-20 15:28] VITALS: BMI 19.2
[2017-11-20] MEDS ORDERED: Sodium Chloride 0.9% 1,000 ML IV STA (16:21)
[2017-11-20] MEDS ORDERED: Iohexol 240 (50 ml) ONE (16:37)
--- NOTE | 2017-11-20 17:28 | ED PDOC ---
Arrival/HPI - General Historian: Patient - History of Present Illness Time/Duration: > week Symptom Onset: Gradual Symptom Course: Unchanged Quality: Aching, Cramping <Jonny Brunson - Last Filed: 11/20/17 18:01> <IsiahNatewill Bloom - Last Filed: 11/20/17 18:30> - General Chief Complaint: Abdominal Pain Time Seen by Provider: 11/20/17 15:31 - History of Present Illness Narrative History of Present Illness (Text): 11/20/17 17:26 87F hx of C.Diff, pseudomemrnous colitis, diveriticulitis s/p sigmoidectomy > 10yrs ago, presents to [facility] ED by ambulance for abd pain that was the same as mid October. Pt at the time was diagnosed w/ pseudomenranous colitis, was discharge on PO vanc. Patient finished the course of abx, and abd was pain free for 3 days. Subsequently patient developed abd pain that was similar. Denies nausea, vomiting, diarrhea, change in urinary and bowel habits. Denies Fevers, chills,chest pain, shortness of breath, nausea, vomiting diarrhea. PMH: OA, dislipidemia, CAP, UTI, depression, C.Diff, anxiety PSH: ovarian cyst, carpal tunnel release ALL: Tetracycline (Jonny Brunson) Past Medical History - Provider Review Nursing Documentation Reviewed: Yes - Travel History Have you recently traveled outside [place] w/in the past 3 mons?: No - Infectious Disease Hx of Infectious Diseases: C.diff - Tetanus Immunization Tetanus Immunization: Unknown - Cardiac Hx Cardiac Disorders: Yes Hx Hypertension: No - Pulmonary Hx Respiratory Disorders: Yes (SMOKED CIGARETTES BEFORE QUIT PK EVERY OTHER DAY) Hx Tuberculosis: No - Neurological Hx Dizziness: Yes - HEENT Hx HEENT Disorder: Yes Hx Cataracts: Yes 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) - Renal Hx Renal Disorder: No - Endocrine/Metabolic Hx Endocrine Disorders: No - Hematological/Oncological Hx Blood Disorders: No Hx Cancer: No - Integumentary Hx Dermatological Disorder: Yes - Musculoskeletal/Rheumatological Hx Arthritis: Yes - Gastrointestinal Hx Gastrointestinal Disorders: Yes (h/o c diff,ibs,appendectomy) Hx Irritable Bowel: Yes - Genitourinary/Gynecological Hx Genitourinary Disorders: Yes (uti) Hx Reproductive Disorders: No Hx Urinary Tract Infection: Yes - Psychiatric Hx Anxiety: Yes Hx Depression: Yes Hx Panic Disorder: Yes Hx Substance Use: No - Past Surgical History Past Surgical History: Non-Contributing - Surgical History Hx Appendectomy: Yes - Anesthesia Hx Anesthesia: Yes Hx Anesthesia Reactions: No Hx Malignant Hyperthermia: No - Suicidal Assessment Feels Threatened In Home Enviroment: No <Jonny Brunson - Last Filed: 11/20/17 18:01> Family/Social History - Physician Review Nursing Documentation Reviewed: Yes Family/Social History: Other (non-contributory) Smoking Status: Former Smoker Hx Alcohol Use: No Hx Substance Use: No Hx Substance Use Treatment: No <Jonny Brunson - Last Filed: 11/20/17 18:01> Allergies/Home Meds <Jonny Brusnon - Last Filed: 11/20/17 18:01> <Terrance Joyce - Last Filed: 11/20/17 18:30> Allergies/Adverse Reactions: Allergies tetracycline Allergy (Severe, Verified 11/20/17 15:34) ANAPHYLAXIS Review of Systems - Physician Review All systems were reviewed & negative as marked: Yes - Review of Systems Constitutional: absent: Fatigue, Weight Change, Fevers, Night Sweats Eyes: absent: Vision Changes, Photophobia ENT: absent: Hearing Changes, Tinnitus Respiratory: absent: SOB, Cough, Sputum Cardiovascular: absent: Chest Pain, Palpitations, Edema Gastrointestinal: Abdominal Pain (LLQ), Nausea. absent: Stool Changes, Vomiting Genitourinary Female: absent: Dysuria, Frequency, Hematuria Musculoskeletal: absent: Arthralgias, Back Pain Skin: absent: Rash, Pruritis Neurological: absent: Headache, Dizziness Endocrine: absent: Diaphoresis Hemo/Lymphatic: absent: Adenopathy Psychiatric: Anxiety, Depression. absent: Suicidal Ideation <Jonny Brunson - Last Filed: 11/20/17 18:01> Physical Exam Temperature: Afebrile Blood Pressure: Normal Pulse: Regular Respiratory Rate: Normal Appearance: Positive for: Well-Appearing, Non-Toxic, Comfortable - Systems Exam Head: Present: Atraumatic, Normocephalic Pupils: Present: PERRL Extroacular Muscles: Present: EOMI Conjunctiva: Present: Normal Mouth: Present: Moist Mucous Membranes Neck: Present: Normal Range of Motion Respiratory/Chest: Present: Clear to Auscultation, Good Air Exchange. No: Respiratory Distress, Accessory Muscle Use, Wheezes, Tender to Palpation Cardiovascular: Present: Regular Rate and Rhythm, Normal S1, S2. No: Murmurs Abdomen: Present: Tenderness (to deep palpation in LLQ. ), Other (Soft. No voluntary/involutary guarding). No: Distention, Peritoneal Signs, Rovsing's Sign Present, Hernias, Ostomy Tubes Upper Extremity: Present: Normal Inspection, NORMAL PULSES Lower Extremity: Present: Normal Inspection, NORMAL PULSES. No: CALF TENDERNESS Neurological: Present: GCS=15, CN II-XII Intact, Speech Normal Skin: Present: Warm Psychiatric: Present: Alert, Oriented x 3 <Jonny Brunson - Last Filed: 11/20/17 18:01> Vital Signs Temp Pulse Resp BP Pulse Ox 11/20/17 17:09 75 18 132/71 99 11/20/17 15:38 98.0 F 78 18 136/76 99 Medical Decision Making - Lab Interpretations I have reviewed the lab results: Yes <Jonny Brunson - Last Filed: 11/20/17 18:01> <Terrance Joyce - Last Filed: 11/20/17 18:30> ED Course and Treatment: CBC/CMP CT of ABD/Pelvis w/ Contrast Ativan for anxiety Discussed case w/ Dr. Clinton, will discuss in further in detail w/ PMD after labs and rads return (Jonny Brunson) 11/20/17 18:28 87 yo female with abdominal pain. Agree with resident history and physical, assessment and plan. -- Labs -- Toradol IV -- CT abd/pelv -- NS IVF -- UA Case discussed with Dr. Mccain to f/u CT, reevaluate and dispostion. (Terrance Joyce) - Lab Interpretations Narrative Lab Interpretation (Text): 11/20/17 18:07 WBC 12.3 w/ left shift CMP- WNL (Jonny Brunson) Lab Results: 11/20/17 16:55 11/20/17 16:55 Lab Results 11/20/17 17:00: Urine Color Yellow, Urine Appearance Clear, Urine pH 5.5, Ur Specific [place] 1.025, Urine Protein Trace H, Urine Glucose (UA) Negative, Urine Ketones Trace H, Urine Blood Moderate H, Urine Nitrate Positive H, Urine Bilirubin Negative, Urine Urobilinogen 0.2, Ur Leukocyte Esterase Negative, Urine RBC 10 - 15, Urine WBC 0 - 2, Ur Epithelial Cells 3 - 4, Amorphous Sediment Few, Urine Bacteria Many, Urine Other Uyeast 11/20/17 16:55: Sodium 135, Potassium 4.4, Chloride 100, Carbon Dioxide 24, Anion Gap 15, BUN 17, Creatinine 1.2, Est GFR ( Amer) 51, Est GFR (Non- Af Amer) 42, Random Glucose 110, Calcium 9.6, Total Bilirubin 0.4, AST 20, ALT 16, Alkaline Phosphatase 93, Total Protein 7.1, Albumin 3.7, Globulin 3.4, Albumin/Globulin Ratio 1.1, Lipase 41 11/20/17 16:55: PT 11.7, INR 1.03, APTT 33.2 11/20/17 16:55: WBC 12.3 H D, RBC 3.65, Hgb 10.9 L, Hct 34.5 L, MCV 94.5, MCH 29.9, MCHC 31.6, RDW 14.8 H, Plt Count 287, MPV 9.0, Gran % 72.3 H, Lymph % ( Auto) 18.9 L, [place] % (Auto) 8.3 H, Eos % (Auto) 0.3 L, Baso % (Auto) 0.2, Gran # 8.87 H, Lymph # (Auto) 2.3, [place] # (Auto) 1.0 H, Eos # (Auto) 0.0, Baso # ( Auto) 0.03 - RAD Interpretation Radiology Orders: 11/20/17 16:21 ABD PELVIS PO & IV CONTRAST [CT] Stat - Medication Orders Current Medication Orders: Sodium Chloride (Sodium Chloride 0.9%) 1,000 mls @ 100 mls/hr IV .Q10H STA Stop: 11/21/17 02:20 Last Admin: 11/20/17 17:03 Dose: 100 mls/hr eMAR Start Stop Document 11/20/17 17:03 [email or web address] (Rec: 11/20/17 17:04 [email or web address] [id number]) Intravenous Solution Start Date 03/13/18 Start Time 17:04 End Date 11/20/17 Discontinued Medications Ketorolac Tromethamine (Toradol) 15 mg IVP STAT STA Stop: 11/20/17 16:29 Last Admin: 11/20/17 17:04 Dose: 15 mg MAR Pain Assessment Document 11/20/17 17:04 [email or web address] (Rec: 11/20/17 17:[id number]- [id number]) Pain Reassessment Is this a pain reassessment? No Sleep Is patient sleeping during reassessment? No Presence of Pain Presence of Pain Yes Pain Scale Used Pain Scale Used Numeric Location Pain Location Body Site Abdomen Description Description Constant Intensity of Pain at present 8 Pain Behavior Facial Grimacing Aggravating Factors Changing Position Alleviating Factors/Management Medication Techniques Alleviating Factors Medication IVP Administration Document 11/20/17 17:04 [email or web address] (Rec: 11/20/17 17:[id number]- [id number]) Charges for Administration # of IVP Administrations 1 Lorazepam (Ativan) 0.25 mg IVP ONCE ONE PRN Reason: Protocol Stop: 11/20/17 17:38 Last Admin: 11/20/17 17:51 Dose: 0.25 mg IVP Administration Document 11/20/17 17:51 [email or web address] (Rec: 11/20/17 17:[id number]) Charges for Administration # of IVP Administrations 1 Disposition/Present on Arrival - Present on Arrival Any Indicators Present on Arrival: No History of DVT/PE: No History of Uncontrolled Diabetes: No Urinary Catheter: No History of Decub. Ulcer: No History Surgical Site Infection Following: None <Jonny Brunson - Last Filed: 11/20/17 18:01> - Present on Arrival Any Indicators Present on Arrival: No - Disposition Have Diagnosis and Disposition been Completed?: No Disposition Time: 18:30 <Terrance Joyce - Last Filed: 11/20/17 18:30> - Disposition Diagnosis: Abdominal pain, Anxiety Patient Problems: Current Active Problems Problem Status Onset Anxiety Acute Abdominal pain Acute Condition: FAIR Referrals: [facility] Ava Fortune, [Primary Care Provider] - Follow up with primary Forms: [employer] ([place]i)
[2017-11-20 17:29] LABS: ALB/GLOB RATIO 1.1 (1.1-1.8); ALBUMIN 3.7 g/dL (3.0-4.8); CALCIUM 9.6 mg/dL (8.4-10.5)
[2017-11-20 17:31] LABS: BASO # 0.03 K/mm3 (0.0-2.0); BASO % 0.2 % (0.0-3.0); EOS % 0.3 % (1.5-5.0); GRAN # 8.87 (1.4-6.5); GRAN % 72.3 % (50.0-68.0); HEMOGLOBIN 10.9 g/dL (12.0-16.0); LYMPH # 2.3 (1.2-3.4); LYMPH % 18.9 % (22.0-35.0); MEAN CELL VOLUME 94.5 fl (80.0-105.0); MEAN CORPUSCULAR HEMOGLOBIN 29.9 pg (25.0-35.0); MEAN CORPUSCULAR HGB CONC 31.6 g/dl (31.0-37.0); MONO % 8.3 % (1.0-6.0); RBC 3.65 10^6/uL (3.5-6.1); RED CELL DISTRIBUTION WIDTH 14.8 % (11.5-14.5); WHITE BLOOD COUNT 12.3 10^3/ul (4.5-11.0)
[2017-11-20 17:48] LABS: INR 1.03 (0.93-1.08); PARTIAL THROMBOPLASTIN TIME 33.2 Seconds (25.1-36.5); PROTHROMBIN TIME 11.7 SECONDS (9.4-12.5)
[2017-11-20 17:48] LABS: PH,URINE 5.5 (4.7-8.0); URINE BILIRUBIN NEGATIVE (NEGATIVE); URINE BLOOD MODERATE (NEGATIVE); URINE GLUCOSE (UA) NEGATIVE (NEGATIVE); URINE LEUKOCYTE ESTERASE NEGATIVE Leu/uL (NEGATIVE); URINE PROTEIN TRACE mg/dL (<30 mg/dL); URINE UROBILINOGEN 0.2 E.U./dL (<1 E.U./dL)
[2017-11-20 17:49] LABS: URINE APPEARANCE CLEAR (CLEAR); URINE COLOR YELLOW (YELLOW)
[2017-11-20 17:55] LABS: URINE AMORPHOUS SEDIMENT FEW; URINE BACTERIA MANY (NEG); URINE WBC 0 - 2 /hpf (0-6)
[2017-11-20] MEDS ORDERED: Iohexol 350 MG/100 ML VIAL ONE (19:40)
--- NOTE | 2017-11-20 21:15 | CT ---
EXAM: CT Abdomen and Pelvis Without Intravenous Contrast EXAM DATE/TIME: 11/20/2017 7:25 PM CLINICAL HISTORY: The patient age is 87 years old and is female; Pain; Abdominal pain; Acute; Additional info: Abd pain Facility exam id and description: Ct abdpels abd pelvis po contrast only TECHNIQUE: Axial computed tomography images of the abdomen and pelvis without intravenous contrast. All CT scans at this facility use one or more dose reduction techniques, viz.: automated exposure control; ma/kV adjustment per patient size (including targeted exams where dose is matched to indication; i.e. head); or iterative reconstruction technique. COMPARISON: CT - ABD PELVIS IV CONTRAST ONLY 2016-10-16 14:09 FINDINGS: Lower thorax: There is a small pericardial effusion. Atherosclerotic changes and groundglass density are visualized within the lungs bilaterally, left side greater than right. There is mild left pleural thickening. Bochdalek hernia at the posterior right lung base. There is a small hiatal hernia. ABDOMEN: Liver: Several hypodense hepatic lesions are identified, the largest within the central portion of the liver measuring 2.4 x 2.0 cm. This measured lesion has mildly increased in size, and appears to be cystic.The remaining lesions are too small to characterize further, without progression. Gallbladder and bile ducts: No calcified stones. No ductal dilation. Pancreas: Atrophic changes are noted the pancreas. Spleen: No splenomegaly. Adrenals: There is mild nodular thickening of the left adrenal gland. Kidneys and ureters: There is hydronephrosis of the left kidney, with proximal left hydroureter. This is a progression. Anterior to the left psoas muscle, there is a 2.4 x 1.7 cm mass, new compared to the prior study, which appears to obstruct the left ureter. Malignancy is considered. At the midpole the left kidney, there is an exophytic complex cystic lesion or mass, with wall thickening. There is a subcentimeter isodense complex cystic or solid lesion exophytic to the lower pole left kidney. Additional hypodense probable left renal cysts are visualized. Stomach and bowel: Colonic diverticula are identified, without acute inflammatory stranding of the adjacent mesentery. Bowel is contained within a right inguinal hernia, with without bowel obstruction. There is wall thickening of the stomach, consistent with incomplete distention or gastritis. Appendix: The appendix is not visualized. PELVIS: Bladder: No stones. Reproductive: Within the left adnexa, there is a 4.3 x 4.0 cm probable cyst which has mildly increased in size. ABDOMEN and PELVIS: Intraperitoneal space: No free air. Bones/joints: There is levoscoliosis of the lower thoracic and lumbar spine. Hypertrophic degenerative changes are noted within the spine. Soft tissues: There is soft tissue swelling posterior to left hip. Vasculature: There is atherosclerotic calcification of the abdominal aorta. Lymph nodes: There is an enlarged left para-aortic lymph node measuring 2.1 x 1.0 cm. Other findings: Mesenteric stranding is again visualized. There is a small fat-containing IMPRESSION: 1. There is hydronephrosis of the left kidney, with proximal left hydroureter. This is a progression. Anterior to the left psoas muscle, there is a 2.4 x 1.7 cm mass, new compared to the prior study, which appears to obstruct the left ureter. Malignancy is considered. Further clinical evaluation is recommended. 2. At the midpole the left kidney, there is an exophytic complex cystic lesion or mass, with wall thickening. There is a subcentimeter isodense complex cystic or solid lesion exophytic to the lower pole left kidney. Additional hypodense probable left renal cysts are visualized. 3. Diverticulosis. 4. Bowel is contained within a right inguinal hernia. 5. Within the left adnexa, there is a 4.3 x 4.0 cm probable cyst, which has mildly increased in size. This can be further evaluated with ultrasound. 6. There is an enlarged left para-aortic lymph node measuring 2.1 x 1.0 cm. 7. There is wall thickening of the stomach, consistent with incomplete distention or gastritis. 8. There is mild nodular thickening of the left adrenal gland. 9. Several hypodense hepatic lesions are identified, the largest within the central portion of the liver measuring 2.4 x 2.0 cm. This measured lesion has mildly increased in size, and appears to be cystic. The remaining lesions are too small to characterize further, without progression. 10. Additional CT findings described above.
--- NOTE | 2017-11-20 21:32 | ED PDOC ---
Physical Exam Vital Signs Temp Pulse Resp BP Pulse Ox 11/20/17 21:49 78 18 152/90 H 98 11/20/17 17:09 75 18 132/71 99 11/20/17 15:38 98.0 F 78 18 136/76 99 Medical Decision Making ED Course and Treatment: ct scan results reviewed case d/w dr mcbride will admit - Lab Interpretations Lab Results: 11/20/17 16:55 11/20/17 16:55 Lab Results 11/20/17 17:00: Urine Color Yellow, Urine Appearance Clear, Urine pH 5.5, Ur Specific [place] 1.025, Urine Protein Trace H, Urine Glucose (UA) Negative, Urine Ketones Trace H, Urine Blood Moderate H, Urine Nitrate Positive H, Urine Bilirubin Negative, Urine Urobilinogen 0.2, Ur Leukocyte Esterase Negative, Urine RBC 10 - 15, Urine WBC 0 - 2, Ur Epithelial Cells 3 - 4, Amorphous Sediment Few, Urine Bacteria Many, Urine Other Uyeast 11/20/17 16:55: Sodium 135, Potassium 4.4, Chloride 100, Carbon Dioxide 24, Anion Gap 15, BUN 17, Creatinine 1.2, Est GFR ( Amer) 51, Est GFR (Non- Af Amer) 42, Random Glucose 110, Calcium 9.6, Total Bilirubin 0.4, AST 20, ALT 16, Alkaline Phosphatase 93, Total Protein 7.1, Albumin 3.7, Globulin 3.4, Albumin/Globulin Ratio 1.1, Lipase 41 11/20/17 16:55: PT 11.7, INR 1.03, APTT 33.2 11/20/17 16:55: WBC 12.3 H D, RBC 3.65, Hgb 10.9 L, Hct 34.5 L, MCV 94.5, MCH 29.9, MCHC 31.6, RDW 14.8 H, Plt Count 287, MPV 9.0, Gran % 72.3 H, Lymph % ( Auto) 18.9 L, [place] % (Auto) 8.3 H, Eos % (Auto) 0.3 L, Baso % (Auto) 0.2, Gran # 8.87 H, Lymph # (Auto) 2.3, [place] # (Auto) 1.0 H, Eos # (Auto) 0.0, Baso # ( Auto) 0.03 - RAD Interpretation Radiology Orders: 11/20/17 19:25 ABD & PELVIS PO CONTRAST ONLY [CT] Stat - Medication Orders Current Medication Orders: Clonazepam (Klonopin) 1 mg PO 0800,1400,1800 EZEQUIEL PRN Reason: Protocol Sodium Chloride (Sodium Chloride 0.9%) 1,000 mls @ 100 mls/hr IV .Q10H STA Stop: 11/21/17 02:20 Last Admin: 11/20/17 17:03 Dose: 100 mls/hr eMAR Start Stop Document 11/20/17 17:03 [email or web address] (Rec: 11/20/17 17:[id number]- [id number]) Intravenous Solution Start Date 11/20/17 Start Time 17:04 End Date 11/20/17 Mirtazapine (Remeron) 30 mg PO HS EZEQUIEL Paroxetine HCl (Paxil) 30 mg PO HS EZEQUIEL Last Admin: 11/20/17 22:15 Dose: 30 mg Discontinued Medications Ceftriaxone Sodium (Rocephin 1 Gram Ivpb) 1 gm in 100 mls @ 200 mls/hr IVPB STAT STA PRN Reason: Protocol Stop: 11/20/17 22:20 Ketorolac Tromethamine (Toradol) 15 mg IVP STAT STA Stop: 11/20/17 16:29 Last Admin: 11/20/17 17:04 Dose: 15 mg MAR Pain Assessment Document 11/20/17 17:04 [email or web address] (Rec: 11/20/17 17:[id number]- [id number]) Pain Reassessment Is this a pain reassessment? No Sleep Is patient sleeping during reassessment? No Presence of Pain Presence of Pain Yes Pain Scale Used Pain Scale Used Numeric Location Pain Location Body Site Abdomen Description Description Constant Intensity of Pain at present 8 Pain Behavior Facial Grimacing Aggravating Factors Changing Position Alleviating Factors/Management Medication Techniques Alleviating Factors Medication IVP Administration Document 11/20/17 17:04 [email or web address] (Rec: 11/20/17 17:[id number]- [id number]) Charges for Administration # of IVP Administrations 1 Lorazepam (Ativan) 0.25 mg IVP ONCE ONE PRN Reason: Protocol Stop: 11/20/17 17:38 Last Admin: 11/20/17 17:51 Dose: 0.25 mg IVP Administration Document 11/20/17 17:51 [email or web address] (Rec: 03/13/18 17:52 [id number]) Charges for Administration # of IVP Administrations 1 Disposition/Present on Arrival - Present on Arrival Any Indicators Present on Arrival: No History of DVT/PE: No History of Uncontrolled Diabetes: No Urinary Catheter: No History of Decub. Ulcer: No History Surgical Site Infection Following: None - Disposition Have Diagnosis and Disposition been Completed?: Yes Diagnosis: Abdominal pain, Anxiety, Hydronephrosis due to obstruction of ureter Disposition: HOSPITALIZED Disposition Time: 22:00 Patient Problems: Current Active Problems Problem Status Onset Abdominal pain Acute Anxiety Acute Condition: FAIR
[2017-11-20] MEDS ORDERED: cefTRIAXone 1 gm 1 GM/100 ML BAG IVPB STA (21:51)
--- NOTE | 2017-11-21 11:38 | HP ---
CHIEF COMPLAINT AND HISTORY OF PRESENT ILLNESS: This is an 87-year-old female who is coming to the hospital complaining of abdominal pain. She says that she has been having this left-sided flank pain/abdominal pain that started about 3 days and it has been getting worse. 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 She has a history of anxiety. She says the pain is a bit better. She has no complaints of any dysuria. No nausea. No vomiting. No back pain. No dysuria or frequency. No headaches. No weakness in the arms or the legs. No chest pain. No shortness of breath. She does feel anxious, she states. She says she has difficult time sleeping at times. She has a lot stresses at home according to her. She has had 2 bouts of C. diff. REVIEW OF SYMPTOMS: All other review of symptoms are within normal limits except that was mentioned. ALLERGIES: TO TETRACYCLINE. HOME MEDICATIONS: Have been reviewed on the [facility]. PAST MEDICAL HISTORY: 1. C. diff colitis. 2. Dyslipidemia. 3. Osteoarthritis. 4. Community-acquired pneumonia. 5. UTI. 6. Depression. PAST SURGICAL HISTORY: Ovarian cyst surgery and carpal tunnel surgery. PHYSICAL EXAMINATION: VITAL SIGNS: Temperature is 98.4, pulse of 98, blood pressure is 159/94, respirations 18, O2 saturation is 100%. GENERAL: The patient lying in bed, uncomfortable, and in no acute distress. HEENT: Atraumatic and normocephalic. Anicteric sclerae. Moist mucosa. [place] conjunctivae. No oral lesions. NECK: No JVD, anterior and posterior adenopathy, thyromegaly, or bruits. CARDIOVASCULAR: S1 and S2 regular. No murmur, rubs, or gallop. LUNGS: Clear to auscultation bilaterally. No wheezes, rales, or rhonchi. ABDOMEN: Bowel sounds are positive. Soft, nontender and nondistended. No hepatosplenomegaly. No rebound and no guarding EXTREMITIES: No cyanosis, clubbing, or edema. NEUROLOGIC: No facial asymmetry. Tongue is midline. No uvula deviation. Power is 5/5 upper extremity and lower extremity. Sensation intact in upper extremity and lower extremity. PSYCHIATRIC: She is awake, alert and oriented x3. No anxiety or depression. She has normal affect. GENITOURINARY: No CVA tenderness. VASCULAR: 2+ pulses in the carotid pulses and pedal pulses. SKIN: No erythema or nodules SPINE: Shows normal curvature. LABORATORY DATA: White count of 12.3, hemoglobin 10.9, platelet count is 287. INR is 1.03. Sodium is 135, potassium is 4.4, creatinine is 1.2. Urine done shows a blood that is moderate, nitrites are positive. Abdominal CT done shows hydronephrosis of the left kidney with proximal left hydroureter. There is also a mass that is 2.4 x 1.7 cm. There are also paraaortic lymph nodes. There are several hypodense hepatic lesions. ASSESSMENT: 1. Left-sided hydronephrosis. 2. Left-sided abdominal mass anterior to the left psoas muscle 2.4 x 1.7 cm. 3. Paraaortic lymph nodes. 4. Hepatic lesions. 5. Anxiety. 6. History of Clostridium difficile. 7. Depression 8. Osteoarthritis. 9. Dyslipidemia. 10. Tetracycline allergy. PLAN: The patient is currently comfortable. She is going to be admitted to the hospital. The patient is on Paxil. This will be continued. She is going to be on Remeron for anxiety and depression. She was given IV fluids in the ER. I will get consultation with Infectious Disease for the mildly elevated white count. She has urine cultures, blood cultures and C. diff that has been ordered. The patient is on Klonopin for her anxiety. She is also going to need evaluation by Urology for her mass and hydronephrosis. I will also get Dr. Delio Epstein to see if this mass can be biopsied. The patient is going to need physical therapy. She has poor IV access. I will get a midline. I did speak to the patient's daughter to give her an update. We will continue to follow closely. Oleg Floyd MD
--- NOTE | 2017-11-21 13:10 | CP.PCM.CON ---
<David Darby - Last Filed: 11/21/17 13:11> History of Present Illness - History of Present Illness History of Present Illness: CC: Abdominal cramping and diarrhea HPI: 87 F with a PMHx of depression, cataracts, history of C. diff., irritable bowel syndrome presenting to [facility] ED with complaints of intermittent abdominal cramping and diarrhea ever half hour approximately. Pt was recently treated for HCAP and UTI and placed on antibiotics. Pt states that her symptoms have improved since admission. She states that the episodes of cramping and loose stools has decreased in frequency from every half hour to every couple of hours. She denies fever or chills, no nausea or vomiting, no chest pain, no SOB , no headache or dizziness, some abdominal discomfort, no dysuria, no cough or colds, no sore throat. PMHx; IBS, anxiety, cataracts, c.diff, arthritis PSHx: Appendectomy, breast lumpectomy, ovarian cyst SHx: Denied FamHx: Noncontributory Meds: MAR Reviewed Allergies: Tetracycline Review of Systems - Review of Systems Review of Systems: as per HPI otherwise negative Past Patient History - Infectious Disease Hx of Infectious Diseases: C.diff - Tetanus Immunizations Tetanus Immunization: Unknown - Past Social History Smoking Status: Former Smoker - CARDIAC Hx Cardiac Disorders: Yes Hx Congestive Heart Failure: No Hx Heart Murmur: No Hx Heart Transplant: No Hx Hypercholesterolemia: Yes Hx Hypertension: No Hx Internal Defibrillator: No Hx Mitral Valve Prolapse: No Hx Pacemaker: No Hx Peripheral Edema: No Hx Peripheral Vascular Disease: No - PULMONARY Hx Respiratory Disorders: Yes (SMOKED CIGARETTES BEFORE QUIT PK EVERY OTHER DAY) Hx Tuberculosis: No - NEUROLOGICAL Hx Dizziness: Yes - HEENT Hx HEENT Problems: Yes Hx Cataracts: Yes 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) - RENAL Hx Chronic Kidney Disease: No - ENDOCRINE/METABOLIC Hx Endocrine Disorders: No - HEMATOLOGICAL/ONCOLOGICAL Hx Blood Disorders: No Hx Cancer: No - INTEGUMENTARY Hx Dermatological Problems: Yes - MUSCULOSKELETAL/RHEUMATOLOGICAL Hx Falls: Yes - GASTROINTESTINAL Hx Gastrointestinal Disorders: Yes (h/o c diff,ibs,appendectomy) - GENITOURINARY/GYNECOLOGICAL Hx Genitourinary Disorders: Yes (uti) Hx Urinary Tract Infection: Yes - PSYCHIATRIC Hx Anxiety: Yes Hx Depression: Yes Hx Panic Symptoms: Yes Hx Substance Use: No - SURGICAL HISTORY Hx Appendectomy: Yes - ANESTHESIA Hx Anesthesia: Yes Hx Anesthesia Reactions: No Hx Malignant Hyperthermia: No Meds Allergies/Adverse Reactions: Allergies Allergy/AdvReac Type Severity Reaction Status Date / Time tetracycline Allergy Severe ANAPHYLAXIS Verified 11/20/17 15:34 - Medications Medications: Current Medications Clonazepam (Klonopin) 1 mg PO 0800,1400,1800 [facility] PRN Reason: Protocol Last Admin: 11/21/17 08:56 Dose: 1 mg Mirtazapine (Remeron) 30 mg PO HS [facility] Last Admin: 11/20/17 23:28 Dose: 30 mg Paroxetine HCl (Paxil) 30 mg PO HS [facility] Last Admin: 11/20/17 22:15 Dose: 30 mg Physical Exam - Constitutional Appears: No Acute Distress - Head Exam Head Exam: ATRAUMATIC, NORMAL INSPECTION, NORMOCEPHALIC - Eye Exam Eye Exam: EOMI, Normal appearance, PERRL Pupil Exam: NORMAL ACCOMODATION, PERRL - ENT Exam ENT Exam: Mucous Membranes Moist, Normal Exam - Neck Exam Neck exam: Positive for: Normal Inspection - Respiratory Exam Respiratory Exam: Clear to Auscultation Bilateral, NORMAL BREATHING PATTERN - Cardiovascular Exam Cardiovascular Exam: REGULAR RHYTHM, +S1, +S2 - GI/Abdominal Exam GI & Abdominal Exam: Normal Bowel Sounds, Soft. absent: Tenderness - Neurological Exam Neurological exam: Alert, CN II-XII Intact, Normal Gait, Oriented x3, Reflexes Normal - Psychiatric Exam Psychiatric exam: Normal Affect, Normal Mood - Skin Skin Exam: Dry, Intact, Normal Color, Warm Results - Vital Signs Recent Vital Signs: Last Vital Signs Temp 98.4 F 11/21/17 04:50 Pulse 98 H 11/21/17 04:50 Resp 18 11/21/17 04:50 BP 159/94 H 11/21/17 04:50 Pulse Ox 98 11/20/17 21:49 - Labs Result Diagrams: 11/20/17 16:55 11/20/17 16:55 Assessment & Plan - Assessment and Plan (Free Text) Assessment: irritable bowel syndrome gastroenteritis hx C. diff. colitis Liver lesion depression cataracts right ear deafness Gastroenteritis irritable bowel syndrome Plan C. diff fu MRI w/o abdomen liver attn probiotics will fu and reassess, consider abx if appropriate ADAT Discussed with Dr Gutierrez <Rai Gutierrez Last Filed: 11/22/17 00:38> Meds - Medications Medications: Current Medications Clonazepam (Klonopin) 1 mg PO 0800,1400,1800 [facility] PRN Reason: Protocol Last Admin: 11/21/17 18:49 Dose: 1 mg Cefepime HCl (Maxipime 1gm) 1 gm in 100 mls @ 100 mls/hr IVPB Q12 [facility] PRN Reason: Protocol Last Admin: 11/21/17 21:06 Dose: 100 mls/hr Sodium Chloride (Sodium Chloride 0.45%) 1,000 mls @ 75 mls/hr IV .[id number] [facility] Stop: 11/23/17 08:00 Last Admin: 11/21/17 21:07 Dose: 75 mls/hr Lactobacillus Acidophilus (Bacid Acidophilus) 1 cap PO BID [facility] Last Admin: 11/21/17 18:49 Dose: 1 cap Mirtazapine (Remeron) 30 mg PO HS [facility] Last Admin: 11/21/17 21:06 Dose: 30 mg Paroxetine HCl (Paxil) 30 mg PO HS [facility] Last Admin: 11/21/17 21:04 Dose: 30 mg Results - Vital Signs Recent Vital Signs: Last Vital Signs Temp 98.4 F 11/21/17 04:50 Pulse 98 H 11/21/17 04:50 Resp 18 11/21/17 04:50 BP 159/94 H 11/21/17 04:50 Pulse Ox 98 11/20/17 21:49 - Labs Result Diagrams: 11/20/17 16:55 11/20/17 16:55 Attending/Attestation - Attestation I have personally seen and examined this patient.: Yes I have fully participated in the care of the patient.: Yes I have reviewed all pertinent clinical information: Yes Notes (Text): This is an addendum to GI consult report dictated by the Taxicab Coordinator.The patient was seen and examined earlier. Medical records, lab studies, imagings were reviewed. Last 24 hours events reviewed. Agreed with the above treatment plan as outlined in Taxicab Coordinator 's notes the with the addition of the following this patient was admitted with diarrhea, urinary tract infection now History of C. difficile before Patient had CT scan of the abdomen and pelvis which showed a hepatic lesion J consult was requested to further evaluate this on examination abdomen was soft no tenderness MRI scan showed a hepatic lesion only cyst also reported a complex renal cystic lesion recommended CT with IV contrast Will discuss with Dr. Floyd again regarding urological evaluation for the renal lesion 11/22/17 00:37
--- NOTE | 2017-11-21 16:55 | CP.PCM.CON ---
History of Present Illness - History of Present Illness History of Present Illness: 87 year old female with PMH of depression, cataracts, right ear deafness, history of C. diff. infection, irritable bowel syndrome, S/P appendectomy, history of diverticulitis came in to [facility] complaining of abdominal pain. She was treated recently for C. diff. with PO Vancomycin and was free of abdominal pain for about 3 days and then it recurred, but currently it has improved. She states her stools are soft and not watery. She denies fever or chills, no nausea or vomiting, no chest pain, no SOB, no headache or dizziness, no chest pain, no dysuria. In the ED, she was noted to have leukocytosis. Infectious Diseases consult is requested to further evaluate and manage. Review of Systems - Review of Systems All systems: reviewed and no additional remarkable complaints except (as per HPI ) Past Patient History - Infectious Disease Hx of Infectious Diseases: C.diff - Tetanus Immunizations Tetanus Immunization: Unknown - Past Social History Smoking Status: Former Smoker - CARDIAC Hx Cardiac Disorders: Yes Hx Congestive Heart Failure: No Hx Heart Murmur: No Hx Heart Transplant: No Hx Hypercholesterolemia: Yes Hx Hypertension: No Hx Internal Defibrillator: No Hx Mitral Valve Prolapse: No Hx Pacemaker: No Hx Peripheral Edema: No Hx Peripheral Vascular Disease: No - PULMONARY Hx Respiratory Disorders: Yes (SMOKED CIGARETTES BEFORE QUIT PK EVERY OTHER DAY) Hx Tuberculosis: No - NEUROLOGICAL Hx Dizziness: Yes - HEENT Hx HEENT Problems: Yes Hx Cataracts: Yes 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) - RENAL Hx Chronic Kidney Disease: No - ENDOCRINE/METABOLIC Hx Endocrine Disorders: No - HEMATOLOGICAL/ONCOLOGICAL Hx Blood Disorders: No Hx Cancer: No - INTEGUMENTARY Hx Dermatological Problems: Yes - MUSCULOSKELETAL/RHEUMATOLOGICAL Hx Falls: Yes - GASTROINTESTINAL Hx Gastrointestinal Disorders: Yes (h/o c diff,ibs,appendectomy) - GENITOURINARY/GYNECOLOGICAL Hx Genitourinary Disorders: Yes (uti) Hx Urinary Tract Infection: Yes - PSYCHIATRIC Hx Anxiety: Yes Hx Depression: Yes Hx Panic Symptoms: Yes Hx Substance Use: No - SURGICAL HISTORY Hx Appendectomy: Yes - ANESTHESIA Hx Anesthesia: Yes Hx Anesthesia Reactions: No Hx Malignant Hyperthermia: No Meds Allergies/Adverse Reactions: Allergies Allergy/AdvReac Type Severity Reaction Status Date / Time tetracycline Allergy Severe ANAPHYLAXIS Verified 11/20/17 15:34 - Medications Medications: Current Medications Clonazepam (Klonopin) 1 mg PO 0800,1400,1800 [facility] PRN Reason: Protocol Mirtazapine (Remeron) 30 mg PO HS [facility] Last Admin: 11/20/17 23:28 Dose: 30 mg Paroxetine HCl (Paxil) 30 mg PO HS [facility] Last Admin: 11/20/17 22:15 Dose: 30 mg Physical Exam - Constitutional Appears: Non-toxic, Chronically Ill - Head Exam Head Exam: NORMAL INSPECTION - ENT Exam ENT Exam: Mucous Membranes Moist - Neck Exam Neck exam: Negative for: Meningismus - Respiratory Exam Respiratory Exam: Decreased Breath Sounds - Cardiovascular Exam Cardiovascular Exam: +S1, +S2 - GI/Abdominal Exam GI & Abdominal Exam: Soft. absent: Tenderness Results - Vital Signs Recent Vital Signs: Last Vital Signs Temp 98.4 F 11/21/17 04:50 Pulse 98 H 11/21/17 04:50 Resp 18 11/21/17 04:50 BP 159/94 H 11/21/17 04:50 Pulse Ox 98 11/20/17 21:49 - Labs Result Diagrams: 11/20/17 16:55 11/20/17 16:55 Assessment & Plan - Assessment and Plan (Free Text) Plan: Assessment consider sepsis due to UTI with gram negative bacilli perirenal mass ,etiology to be determined history of sepsis due to severe C. diff. colitis history of sepsis due to left lower lobe community-acquired pneumonia R/O UTI from Klebsiella depression cataracts right ear deafness history of C. diff. infection irritable bowel syndrome S/P appendectomy Plan started patient on Cefepime pending identification and sensitivities of the gram negative bacilli in the urine follow up plans for work up for the perirenal mass
[2017-11-21] MEDS: Lactobacillus Acidophilus 500 MU Cap PO SCH (18:49)
[2017-11-21] MEDS: Cefepime 1gm in NS 100ml 1 GM/100 ML BAG IVPB SCH (21:06)
[2017-11-21] MEDS: Sodium Chloride 0.45% 1,000 ML IV SCH (21:07)
--- NOTE | 2017-11-21 21:42 | MRI ---
EXAM: MR Abdomen Without Intravenous Contrast EXAM DATE/TIME: 11/21/2017 1:15 PM CLINICAL HISTORY: 87 years old, female; Pain; Abdominal pain; Localized; Left; Additional info: Attn liver TECHNIQUE: Multiplanar magnetic resonance images of the abdomen without intravenous contrast. COMPARISON: No relevant prior studies available. FINDINGS: LOWER THORAX: Tiny bilateral pleural effusions. Small pericardial effusion. LIVER: 3 liver lesions seen. The largest, measuring 2.2 cm, has signal characteristics most compatible with a simple cyst. The 2 smaller lesions are subcentimeter in size, with the larger measuring 7 mm, and also have also signal characteristics compatible with simple cysts. GALLBLADDER AND BILE DUCTS: No significant abnormality identified. No evidence of significant biliary ductal dilatation. PANCREAS: No definite masses visualized allowing for motion artifact SPLEEN: No significant abnormality identified. No evidence of stomach lesions. ADRENALS: No suspicious masses visualized KIDNEYS AND URETERS: Moderate left hydroureteronephrosis, as seen on the recent CT abdomen, which could be secondary to a soft tissue mass in the left retroperitoneum. Motion artifact limits evaluation on this exam. Complex lesion in the midpole region of the left kidney, measuring 3 x 2.2 cm. This appears mixed cystic and solid in nature, with a cystic center and a soft tissue rim and internal soft tissue septations. Its enhancement characteristics cannot be determined on this unenhanced exam. 6 mm indeterminate T1/T2 hyperintense lesion in the right kidney. This could represent a hemorrhagic cyst. Fluid signal intensity lesion in the upper pole of the left kidney, most likely a simple cyst. REPRODUCTIVE: Left ovarian/adnexal cystic lesion, which measures 3.8 cm maximally, and appears grossly simple on this exam. IMPRESSION: - Limited exam due to motion artifact. - Multiple hepatic cysts. No suspicious liver lesions seen. - 3 cm complex cystic lesion in the left kidney. Recommend further characterization of this lesion with a dedicated renal protocol abdominal CT, done without and with IV contrast. There is also an indeterminate T1 hyperdense lesion in the right kidney, which could represent a hemorrhagic cyst. - Left hydroureteronephrosis, as seen on the recent abdominal CT. See above. - Tiny bilateral pleural effusions. - Small pericardial effusion. - See above for remaining findings.
--- NOTE | 2017-11-22 05:30 | CON ---
DATE: 11/21/2017 CHIEF COMPLAINT/HISTORY OF PRESENT ILLNESS: This is 87-year-old female, who was admitted with abdominal and left-sided flank pain. Her CT scan on admission demonstrates moderate left hydronephrosis and an obstructing 2.5-3 cm left retroperitoneal lymph node. The patient has no history of malignancy. There is a 5 cm left adnexal cyst. PAST MEDICAL HISTORY: Significant for anxiety/depression, C. difficile colitis, dyslipidemia, and osteoarthritis. I spoke with the patient and her daughter. Certainly, this could be a malignant obstruction to the left ureter, possibly related to her left adnexal cyst. The biopsy is challenging, but I believe can be performed safely from a posterior approach (3 cm left retroperitoneal lymph node). I discussed the risks, options, alternatives with the patient and her daughter and they wished to proceed. Delio Epstein MD MTDD
[2017-11-22] MEDS ORDERED: Barium Sulfate Susp 2.1% w/v, 2.0% w/w 450 mL Bottle PO ONE (07:15)
[2017-11-22] MEDS ORDERED: Midazolam 2 MG/2 ML VIAL ONE (10:10)
[2017-11-22] MEDS ORDERED: Lidocaine 1% Inj (20ml) ONE (10:10)
[2017-11-22] MEDS ORDERED: Oxycodone/Acetaminophen 5/325 mg Tab PO PRN (10:41)
[2017-11-22] MEDS: Cefepime 1gm in NS 100ml 1 GM/100 ML BAG IVPB SCH (12:24)
[2017-11-22 12:28] LABS: BASO # 0.02 K/mm3 (0.0-2.0); BASO % 0.3 % (0.0-3.0); EOS # 0.1 (0.0-0.7); EOS % 1.4 % (1.5-5.0); GRAN # 3.49 (1.4-6.5); GRAN % 54.8 % (50.0-68.0); HEMOGLOBIN 9.9 g/dL (12.0-16.0); LYMPH # 2.2 (1.2-3.4); LYMPH % 34.6 % (22.0-35.0); MEAN CELL VOLUME 92.5 fl (80.0-105.0); MEAN CORPUSCULAR HEMOGLOBIN 29.6 pg (25.0-35.0); MEAN CORPUSCULAR HGB CONC 31.9 g/dl (31.0-37.0); MEAN PLATELET VOLUME 8.9 fl (7.0-11.0); MONO # 0.6 (0.1-0.6); MONO % 8.9 % (1.0-6.0); RBC 3.35 10^6/uL (3.5-6.1); RED CELL DISTRIBUTION WIDTH 15.2 % (11.5-14.5); WHITE BLOOD COUNT 6.4 10^3/ul (4.5-11.0)
[2017-11-22] MEDS: Lactobacillus Acidophilus 500 MU Cap PO SCH ×2 (12:28→18:32)
[2017-11-22 12:33] LABS: ALBUMIN 3.3 g/dL (3.0-4.8); ALT/SGPT 21 U/L (7-56); AST/SGOT 20 U/L (14-36); BLOOD UREA NITROGEN 9 mg/dL (7-21); CALCIUM 9.1 mg/dL (8.4-10.5); GFR AFRICAN-AMERICAN > 60; GFR NON-AFRICAN AMERICAN 59
--- NOTE | 2017-11-22 12:41 | CT ---
PROCEDURE: CT guided left periaortic lymph node biopsy. HISTORY: Recently discovered left hydronephrosis. Obstructing 2.3 cm left periaortic lymph node. Evaluate for malignancy. PHYSICIAN(S): Delio Epstein MD. TECHNIQUE: The relative risks and indications of the procedure were explained to the patient and her daughter and consent obtained. The patient was placed prone on the CT scanner and preliminary images through the low abdomen obtained. Conscious sedation and monitoring were provided throughout the procedure by a nurse. There is a 2.3 cm lymph node obstructed left ureter. A left posterior approach was selected and the area prepped and draped in the usual sterile fashion. 1% Xylocaine was used to anesthetize the skin and soft tissues. A 17-gauge guiding needle was advanced into the 2.3 cm left periaortic lymph node. Its position was confirmed with CT. Using coaxial technique, multiple core biopsies were obtained. The postprocedure images show no evidence of significant hemorrhage. IMPRESSION: 1. CT-guided periaortic lymph node biopsy as described above.
[2017-11-22] MEDS: Sodium Chloride 0.45% 1,000 ML IV SCH (12:50)
[2017-11-22 16:03] VITALS: BP 108/61
--- NOTE | 2017-11-22 16:42 | CP.PCM.PN ---
Subjective - Date & Time of Evaluation Date of Evaluation: 11/22/17 Time of Evaluation: 11:50 - Subjective Subjective: No fevers, no distress. Objective - Vital Signs/Intake and Output Vital Signs (last 24 hours): Temp Pulse Resp BP Pulse Ox 98.2 F 77 18 136/66 96 11/22/17 07:37 11/22/17 07:37 11/22/17 07:37 11/22/17 07:37 11/22/17 07:37 Intake and Output: 11/22/17 11/22/17 06:59 18:59 Intake Total 240 Balance 240 - Medications Medications: Current Medications Clonazepam (Klonopin) 1 mg PO 0800,1400,1800 [facility] PRN Reason: Protocol Last Admin: 11/22/17 08:18 Dose: 1 mg Cefepime HCl (Maxipime 1gm) 1 gm in 100 mls @ 100 mls/hr IVPB Q12 [facility] PRN Reason: Protocol Last Admin: 11/21/17 21:06 Dose: 100 mls/hr Sodium Chloride (Sodium Chloride 0.45%) 1,000 mls @ 75 mls/hr IV .[id number] [facility] Stop: 11/23/17 08:00 Last Admin: 11/21/17 21:07 Dose: 75 mls/hr Lactobacillus Acidophilus (Bacid Acidophilus) 1 cap PO BID [facility] Last Admin: 11/21/17 18:49 Dose: 1 cap Mirtazapine (Remeron) 30 mg PO HS [facility] Last Admin: 11/21/17 21:06 Dose: 30 mg Paroxetine HCl (Paxil) 30 mg PO [facility] Last Admin: 11/21/17 21:04 Dose: 30 mg - Labs Labs: PT 11.7 SECONDS (9.4-12.5) 11/20/17 16:55 INR 1.03 (0.93-1.08) 11/20/17 16:55 APTT 33.2 Seconds (25.1-36.5) 11/20/17 16:55 - Constitutional Appears: Chronically Ill - Respiratory Exam Respiratory Exam: Decreased Breath Sounds - Cardiovascular Exam Cardiovascular Exam: +S1, +S2 - GI/Abdominal Exam GI & Abdominal Exam: Soft. absent: Tenderness Assessment and Plan - Assessment and Plan (Free Text) Plan: Assessment consider sepsis due to UTI with Klebsiella perirenal mass ,etiology to be determined history of sepsis due to severe C. diff. colitis history of sepsis due to left lower lobe community-acquired pneumonia R/O UTI from Klebsiella depression cataracts right ear deafness history of C. diff. infection irritable bowel syndrome S/P appendectomy Plan will switch Cefepime to Gentamicin after repeat urine cx are taken follow up biopsy results of the perirenal mass
--- NOTE | 2017-11-22 19:28 | PN ---
DATE: SUBJECTIVE: The patient has no complaints of any chest pain. No shortness of breath. No headaches or dizziness. PHYSICAL EXAMINATION: VITAL SIGNS: Temperature is 98, pulse of 86, blood pressure is 136/62, respirations 20. GENERAL: The patient is lying in bed, flat, comfortable. HEENT: No oral lesion. Anicteric sclerae. Moist mucosa. NECK: No JVD, adenopathy, or thyromegaly. CARDIOVASCULAR: S1 and S2, regular. No murmurs, rubs, or gallops. LUNGS: Clear to auscultation bilaterally. No wheeze, rales, or rhonchi. ABDOMEN: Bowel sounds are positive, soft, nontender and nondistended. EXTREMITIES: No cyanosis, clubbing or edema. LABORATORY DATA: White count of 6.4, hemoglobin 9.9. Creatinine is 0.9. Abdominal MRI done shows multiple hepatic cysts. There is a 3 cm complex cystic lesion in the left kidney. There is left hydronephrosis. ASSESSMENT: 1. Left renal hydronephrosis. 2. Left-sided abdominal mass 3 x 2 cm. 3. Paraaortic lymph nodes. 4. Hepatic cyst. 5. Anxiety. 6. Depression. 7. Osteoarthritis. 8. Dyslipidemia. 9. History of Clostridium difficile. 10. Tetracycline allergy. PLAN: The patient is uncomfortable. She had biopsy done today by Dr. Delio Epstein. I did speak to Dr. Sorto from Urology. The patient may need a cystoscopy with stent placement. The patient is on Klonopin for her anxiety. She is on Paxil. I did speak to Dr. Gutierrez regarding the case yesterday. The patient is going to be seen by Psychiatry for her anxiety. I did speak to the patient's daughter this morning to give her an update on the patient's diagnosis and plan of care. Oleg Floyd MD
--- NOTE | 2017-11-23 02:48 | CON ---
DATE: HISTORY OF PRESENT ILLNESS: The patient is an 87-year-old female with long history of depression and anxiety, multiple medical issues. The patient was admitted on the medical side for evaluation of abdominal pain as well as upset stomach. The patient has history of C. difficile multiple urinary tract infections in the past. Psych consult was called for evaluation of mood symptoms as well as the patient has history of mental illness. The patient is very familiar to this service writer advisor from the multiple admissions on the medical side as well as consultations as well as psych admission. The patient presented to be lethargic. The patient said that she feels okay from the mental standpoint. The patient reported that her depression and anxiety is under control right now. The patient status post procedure did not want to hold the interview today. The patient's medications were reviewed. Dr. Bryson Pompa's office was contacted, requested to have medication list. This service writer advisor will come back tomorrow and will have full examination. PHYSICAL EXAMINATION: VITAL SIGNS: Stable. Temperature 98, pulse is 86, blood pressure 136/62, respiration 26, oxygen saturation is 98. MEDICATIONS: Medications were reviewed. From the psychiatric standpoint, the patient is on Klonopin three times a day 1 mg, Remeron 30 mg at the nighttime, Paxil 30 mg at the nighttime. The patient reported that a new medication was prescribed to her. Awaiting for fax from Dr. Pompa's office. LABORATORY DATA: Hematology reviewed. Leukocytosis is better from 12.3 to 6.4 today. Coagulation reviewed. Chemistry reviewed. Urinalysis showed protein, blood, nitrites. Microbiology showed Klebsiella pneumoniae in the urine. Reports reviewed. Lymph node biopsy was done today. We will follow up on the results. MENTAL STATUS EXAMINATION: The patient appears to be sleepy, weak. The patient has intermittent eye contact. Mood described "my depression and anxiety under control." Thought process is coherent and goal directed. Thought content: The patient denies visual, auditory, or tactile hallucinations. Denies paranoid ideation. The patient denies thoughts of harming herself or others. Insight and judgment seems to be fair. Impulses are well controlled. IMPRESSION: As per history, the patient has history of depression and anxiety. PLAN: Continue current management. Continue current medications. Medications will be reviewed. Dr. Bryson Pompa's local psychiatrist office was contacted, requested medication list because as per the patient a new medication was started on her. Meanwhile, continue current management and current medication. We will follow up on this patient tomorrow and advise accordingly. Thank you very much for letting me participate in care of your patient. Karo Smiley MD
--- NOTE | 2017-11-23 09:00 | PN ---
DATE: 11/23/2017 SUBJECTIVE: The patient says she is nervous about what the biopsy report is going to show. She has no complaints of any headaches or dizziness. No nausea, no vomiting. PHYSICAL EXAMINATION: VITAL SIGNS: Temperature is 97.6, pulse of 85, blood pressure is 108/61, respirations 20. GENERAL: The patient is lying in bed, flat, comfortable. HEENT: No oral lesion. Anicteric sclerae. Moist mucosa. NECK: No JVD, adenopathy, or thyromegaly. CARDIOVASCULAR: S1 and S2, regular. No murmurs, rubs, or gallops. LUNGS: Clear to auscultation bilaterally. No wheeze, rales, or rhonchi. ABDOMEN: Bowel sounds are positive, soft, nontender and nondistended. EXTREMITIES: No cyanosis, clubbing or edema. LABORATORY DATA: White count of 6.4, hemoglobin is 9.9. Creatinine is 0.9. ASSESSMENT: 1. Status post lymph node biopsy. 2. Left renal hydronephrosis. 3. Left-sided abdominal mass 3 x 2 cm. 4. Paraaortic lymph node. 5. Hepatic cyst. 6. Anxiety. 7. Depression. 8. Osteoarthritis. 9. Dyslipidemia. 10. History of Clostridium difficile. 11. Tetracycline allergy. PLAN: The patient is on IV fluids. I will discontinue the patient's IV fluids at this point. She is going to be continued on her Klonopin for anxiety. She is on Percocet for pain. She is receiving her mirtazapine for anxiety and depression. She is also on Zofran as needed. She is receiving Tylenol for pain. She is on a heart-healthy diet. The patient follows with Dr. Pompa, who is her psychiatrist. I did review the consultation of the psychiatrist. The patient has a midline because of poor IV access. The patient was not seen by physical therapy because she is going for biopsy. I will see if she qualifies for the Transitional Care Unit. Oleg Floyd MD
[2017-11-23] MEDS: Lactobacillus Acidophilus 500 MU Cap PO SCH ×2 (09:06→17:08)
--- NOTE | 2017-11-23 09:07 | PN ---
DATE: 11/22/2017 SUBJECTIVE: The patient was discussed with Dr. Floyd and Dr. Epstein. Patient has a left hydronephrosis, which appears to be from a soft tissue mass in the left retroperitoneum. She underwent a CT-guided biopsy of the mass today. Patient also had a follow-up MRI exam to further assess the CT findings. MRI showed a 3 cm complex cystic lesion in the left kidney. This was done without contrast, so there was no evidence of enhancement or not. There also appears to be a hemorrhagic cyst in the right kidney as well as an adnexal mass. Urologically, the plan would be to schedule the patient for a cystoscopy with retrograde pyelograms and likely placement of a left ureteral stent. Patient's GFR has improved to 59 with hydration. We may be able to set her a dedicated renal CT pre and post contrast to see if there is enhancement of the lesion. I would wait for now is to check the pathology of the biopsy. However, I discussed with Dr. Epstein as her kidney does appear to be obstructed, we should consider a stent placement until we know what the final pathology is and be able to treat based on the biopsy reports. I will discuss the procedure with patient and her family and plan on scheduling in the immediate future. Tru Sorto MD
--- NOTE | 2017-11-23 10:35 | CARD ---
APPROVED REPORT EKG Measurement Heart [id number] <Conclusion> Normal sinus rhythm Leftward axis PRWP NSSTW changes No change
--- NOTE | 2017-11-23 12:34 | CP.PCM.PN ---
Subjective - Date & Time of Evaluation Date of Evaluation: 11/23/17 Time of Evaluation: 10:15 - Subjective Subjective: Seen and examined at the bedside earlier today, chart review. Patient is status post lymph node biopsy yesterday. Left lateral dressing is dry and intact. Patient with no complaints of any nausea, vomiting, or abdominal pain. Patient reports formed yesterday. No acute overnight events reported. This patient had an abdominal MRI for further eval of hepatic cysts seen on CT scan. Patient report was reviewed and reports 3 hepatic cysts, no suspicious liver lesions, 3 cm cystic lesion in the kidney, left heart or ureter nephrosis. Objective - Vital Signs/Intake and Output Vital Signs (last 24 hours): Temp Pulse Resp BP Pulse Ox 97.6 F 85 20 108/61 96 11/22/17 14:00 11/22/17 14:00 11/22/17 14:00 11/22/17 14:00 11/22/17 14:00 Intake and Output: 11/23/17 11/23/17 06:59 18:59 Intake Total 830 Balance 830 - Medications Medications: Current Medications Acetaminophen (Tylenol 325mg Tab) 650 mg PO Q4 PRN PRN Reason: Pain, Mild (1-3) Last Admin: 11/23/17 04:17 Dose: 650 mg Clonazepam (Klonopin) 1 mg PO 0800,1400,1800 [facility] PRN Reason: Protocol Last Admin: 11/23/17 07:53 Dose: 1 mg Lactobacillus Acidophilus (Bacid Acidophilus) 1 cap PO BID [facility] Last Admin: 11/23/17 09:06 Dose: 1 cap Mirtazapine (Remeron) 30 mg PO [facility] Last Admin: 11/22/17 21:04 Dose: 30 mg Ondansetron HCl (Zofran Inj) 4 mg IVP Q6H PRN PRN Reason: Nausea/Vomiting Oxycodone/Acetaminophen (Percocet 5/325 Mg Tab) 1 tab PO Q4H PRN PRN Reason: Pain, moderate (4-7) Stop: 11/25/17 10:42 Paroxetine HCl (Paxil) 30 mg PO HS [facility] Last Admin: 11/22/17 21:03 Dose: 30 mg - Labs Labs: 11/22/17 12:20 11/22/17 12:20 PT 11.7 SECONDS (9.4-12.5) 11/20/17 16:55 INR 1.03 (0.93-1.08) 18 16:55 APTT 33.2 Seconds (25.1-36.5) 11/20/17 16:55 - Constitutional Appears: No Acute Distress - Head Exam Head Exam: NORMOCEPHALIC - Eye Exam Eye Exam: Normal appearance. absent: Scleral icterus - ENT Exam ENT Exam: Mucous Membranes Moist - Respiratory Exam Respiratory Exam: NORMAL BREATHING PATTERN. absent: Respiratory Distress - Cardiovascular Exam Cardiovascular Exam: +S1, +S2 - GI/Abdominal Exam GI & Abdominal Exam: Soft, Normal Bowel Sounds. absent: Guarding, Tenderness, Organomegaly, Rebound Additional comments: left-sided back dressing is dry and intact. Area nontender. - Extremities Exam Extremities Exam: Normal Capillary Refill. absent: Calf Tenderness, Pedal Edema - Neurological Exam Neurological Exam: Alert, Awake, Oriented x3 - Skin Skin Exam: Dry, Warm Assessment and Plan - Assessment and Plan (Free Text) Assessment: Assessment: Irritable bowel syndrome gastroenteritis, diarrhea improved Hx C. diff. colitis, C. difficile negative Liver lesion, status post abdominal MRI showing 3 hepatic cysts, no suspicion for liver mass Depression Cataracts Right ear deafness Gastroenteritis Plan: Fdeniesollow-up lymph node biopsy probiotics diet as tolerated Urology follow-up Seen and discussed with Dr Gutierrez
[2017-11-23 16:03] VITALS: PULSE 87; RESP 18; TEMP 98.1; O2SAT 99
--- NOTE | 2017-11-23 21:07 | CP.PCM.PN ---
Subjective - Date & Time of Evaluation Date of Evaluation: 11/23/17 Time of Evaluation: 12:15 - Subjective Subjective: Feeling better, no fevers, not in distress, had biopsy of lymph node yesterday. Objective - Vital Signs/Intake and Output Vital Signs (last 24 hours): Temp Pulse Resp BP Pulse Ox 97.6 F 85 20 108/61 96 11/22/17 14:00 11/22/17 14:00 11/22/17 14:00 11/22/17 14:00 11/22/17 14:00 Intake and Output: 11/23/17 11/23/17 06:59 18:59 Intake Total 830 Balance 830 - Medications Medications: Current Medications Acetaminophen (Tylenol 325mg Tab) 650 mg PO Q4 PRN PRN Reason: Pain, Mild (1-3) Last Admin: 11/23/17 04:17 Dose: 650 mg Clonazepam (Klonopin) 1 mg PO 0800,1400,1800 [facility] PRN Reason: Protocol Last Admin: 11/23/17 07:53 Dose: 1 mg Lactobacillus Acidophilus (Bacid Acidophilus) 1 cap PO BID [facility] Last Admin: 11/22/17 18:32 Dose: 1 cap Mirtazapine (Remeron) 30 mg PO [facility] Last Admin: 11/22/17 21:04 Dose: 30 mg Ondansetron HCl (Zofran Inj) 4 mg IVP Q6H PRN PRN Reason: Nausea/Vomiting Oxycodone/Acetaminophen (Percocet 5/325 Mg Tab) 1 tab PO Q4H PRN PRN Reason: Pain, moderate (4-7) Stop: 11/25/17 10:42 Paroxetine HCl (Paxil) 30 mg PO [facility] Last Admin: 11/22/17 21:03 Dose: 30 mg - Labs Labs: 11/22/17 12:20 11/22/17 12:20 PT 11.7 SECONDS (9.4-12.5) 11/20/17 16:55 INR 1.03 (0.93-1.08) 11/20/17 16:55 APTT 33.2 Seconds (25.1-36.5) 11/20/17 16:55 - Constitutional Appears: Chronically Ill - Head Exam Head Exam: NORMAL INSPECTION - ENT Exam ENT Exam: Mucous Membranes Moist - Neck Exam Neck Exam: absent: Meningismus - Respiratory Exam Respiratory Exam: Decreased Breath Sounds - Cardiovascular Exam Cardiovascular Exam: +S1, +S2 - GI/Abdominal Exam GI & Abdominal Exam: Soft. absent: Tenderness Assessment and Plan - Assessment and Plan (Free Text) Plan: Assessment consider sepsis due to UTI with Klebsiella perirenal mass ,etiology to be determined history of sepsis due to severe C. diff. colitis history of sepsis due to left lower lobe community-acquired pneumonia R/O UTI from Klebsiella depression cataracts right ear deafness history of C. diff. infection irritable bowel syndrome S/P appendectomy Plan will switch Cefepime to Gentamicin after repeat urine cx are taken follow up biopsy results of the perirenal mass
--- NOTE | 2017-11-23 22:27 | PN ---
DATE: SUBJECTIVE: The patient was admitted for abdominal pain as well as diarrhea. CT scan of the abdomen showed that the patient has hepatic cyst. Also, the patient had lymph node biopsy yesterday. The patient has history of major depressive disorder as well as generalized anxiety disorder, currently under care of Dr. Bryson Pompa, local psychiatrist. The patient was seen initially yesterday and medications were confirmed by the patient's psychiatrist, Dr. Bryson Pompa. In addition to her current medication, the patient was taking Abilify 5 mg at the nighttime. This conventional mortgage underwriter will decrease the dose to 2.5 mg at the nighttime because the patient is old and fragile and status post lymph node biopsy. Moreover, the patient was doing well in regard of the mood symptoms as well as anxiety symptoms. The patient presented to be well. The patient reported that she feels better. The patient said that her depression is under control. Anxiety is under control. The patient sleeps well. Has fair appetite. Vital signs are stable. Medications reviewed. Labs reviewed. Urinalysis showed urinary tract infection. As per nursing staff report, the patient is compliant with the treatment. No behavioral issues. MENTAL STATUS EXAMINATION: The patient presented to be well, alert and oriented, pleasant, cooperative. The patient remembered this conventional mortgage underwriter by her name. The patient was asking intelligent questions. Seems to be optimistic. Good eye contact. Speech was normal rate, tone, quality and quantity. Thought process was coherent and goal directed. Thought content, the patient denied visual, auditory, tactile hallucinations. Denied paranoid ideation. The patient does not appear to be psychotic. The patient adamantly denied thoughts of harming herself or others. Denied intents or plan. Insight and judgment seems to be improving. Impulses are well controlled. IMPRESSION: As per history of major depressive disorder and partial remission, generalized anxiety disorder and partial remission, rule out mood disorder due to general medical condition. PLAN: Continue current management. Continue current medications. There is no need for psychiatrist to follow up on the patient over this weekend. The patient seems to be stable. All medications resumed. The patient tolerates them well. No side effects observed or reported. This conventional mortgage underwriter will follow up on this patient on Sunday morning. Should you have any questions or in case of acute change in mental status or in case of suicidality or in case of worsening of anxiety, call psychiatrist on-call. Meanwhile, the patient is doing well. Should you have any questions give me a call back. Thank you so much. Karo Smiley MD [facility]
--- NOTE | 2017-11-26 12:33 | PQF GENQUE ---
This form is a permanent part of the medical record Doctor, lymph node biopsy result = metastatic, squamous cell carcinoma= do you agree with the findings and is present on admission? Please indicate your response below. Thank you. Clarification of your documentation is requested to better reflect the severity of illness and intensity of treatment of your patient. Indicators present [] Specify: [] [] Specify: [] [] Specify: [] [] Specify: [] Location in the medical record that reflects the above clinical findings: [] Treatment Provided: [] PHYSICIAN'S RESPONSE Based on your medical judgment of the clinical indicators outlined above please clarify the following: [] Practitioner response [] If unable to determine, please check the box, sign and date. Present On Admission (POA) Indicator: [] Present at the time of admission [] Not present at the time of admission [] Clinically Undetermined In responding to this query, please exercise your independent professional judgment. The fact that a question is asked does not imply that any particular answer is desired or expected. Thank you for your clarification on this documentation. If you have any questions please call:[ ] * Thank you, [ ]freddie DE [facility] researcher LUDIN
== END 2017-11-23 18:26 | DRG 674 ==
LOC: ED 15:28 → ERH 21:52 → 5RNO 23:07
PROVIDERS: ADMIT Internal Medicine Nephrology; ATTEND Internal Medicine Nephrology
PROC: 07BD3ZX Excision of Aortic Lymphatic, Percutaneous Approach, Diagnostic (ICD-10-PCS; principal; 2017-11-22 10:00)
DX: N13.39 Other hydronephrosis (principal); C77.2 Secondary and unspecified malignant neoplasm of intra-abdominal lymph nodes; B96.1 Klebsiella pneumoniae [K. pneumoniae] as the cause of diseases classified elsewhere; K76.89 Other specified diseases of liver; N39.0 Urinary tract infection, site not specified; N28.1 Cyst of kidney, acquired; E78.5 Hyperlipidemia, unspecified; F32.4 Major depressive disorder, single episode, in partial remission; F41.1 Generalized anxiety disorder; M19.90 Unspecified osteoarthritis, unspecified site; H91.91 Unspecified hearing loss, right ear; H26.9 Unspecified cataract; K52.9 Noninfective gastroenteritis and colitis, unspecified; Z87.891 Personal history of nicotine dependence; Z87.01 Personal history of pneumonia (recurrent); Z88.1 Allergy status to other antibiotic agents

== ENCOUNTER 2017-11-23 18:26 | Inpatient (IN) | payer OTHER ==
[2017-11-23] MEDS ORDERED: Oxycodone/Acetaminophen 5/325 mg Tab PO PRN (19:07)
[2017-11-24 00:15] VITALS: BMI 19.5
[2017-11-24] MEDS ORDERED: Gentamicin 80 mg/2mL Inj. IVPB SCH (10:00)
[2017-11-24] MEDS: Lactobacillus Acidophilus 500 MU Cap PO SCH ×2 (10:18→18:58)
--- NOTE | 2017-11-24 23:25 | PN ---
DATE: 11/24/2017 SUBJECTIVE: The patient has no complaints of any chest pain, no shortness of breath, no headaches or dizziness. PHYSICAL EXAMINATION: VITAL SIGNS: Temperature is 98.2, pulse is 74, blood pressure is 123/76, respirations 18. GENERAL: The patient is lying in bed, flat, comfortable. HEENT: No oral lesion. Anicteric sclerae. Moist mucosa. NECK: No JVD, adenopathy, or thyromegaly. CARDIOVASCULAR: S1 and S2, regular. No murmurs, rubs, or gallops. LUNGS: Clear to auscultation bilaterally. No wheeze, rales, or rhonchi. ABDOMEN: Bowel sounds are positive, soft, nontender and nondistended. EXTREMITIES: No cyanosis, clubbing or edema. ASSESSMENT: 1. Status post lymph node biopsy. 2. Left renal hydronephrosis. 3. Left-sided abdominal mass, 3 x 2 cm. 4. Paraaortic lymph node. 5. Hepatic cyst. 6. Anxiety and depression. 7. Osteoarthritis. 8. Dyslipidemia. 9. Clostridium difficile. 10. TETRACYCLINE ALLERGY. PLAN: The patient is currently comfortable. The patient is getting physical therapy. I will continue with Klonopin. The patient has gram-positive cocci and Klebsiella in the urine. The patient is on Remeron. She will discontinue her Zofran. She is waiting for her lymph node biopsy. She will need a stent to be placed; this will be done on Sunday. Oleg Floyd MD
--- NOTE | 2017-11-25 00:11 | CON ---
DATE: 11/24/2017 LOCATION: The patient is in room 320. The patient was seen early this morning. CHIEF COMPLAINT: Weakness times several days. HISTORY OF PRESENT ILLNESS: This is an 87-year-old female with history of depression, history of cataract, right ear deafness, IBS, had a perirenal mass, who was admitted to the acute care with a diagnosis of hydronephrosis on 11/20/2017. Dr. Burgos consulted on 11/21/2017, who states the patient also has a history of pseudomembranous colitis and history of diverticulitis. The patient now transferred to Transitional Care for further care. Infectious Disease consultation requested. The patient had a needle core biopsy of lymph node and left retroperitoneal lymph node, which showed metastatic squamous cell carcinoma. At this point, the patient has no fevers and chills. No nausea. No vomiting. PAST MEDICAL HISTORY: Significant for depression, pseudomembranous colitis, cataracts, right ear deafness, diverticulitis, IBS. PAST SURGICAL HISTORY: Significant for appendectomy. The patient has no travel history. ALLERGIES: SHE IS ALLERGIC TO TETRACYCLINE. PHYSICAL EXAMINATION: GENERAL: The patient is in bed, no acute distress, answering questions. Pleasant 87-year-old female. VITAL SIGNS: Temperature of 98, blood pressure is 120/70, respiratory rate of 16. HEENT: Examination of HEENT is unremarkable. NECK: Supple. LUNGS: Have decreased breath sounds. HEART: Normal S1, S2. ABDOMEN: Soft, nontender. LABORATORY EXAMINATION: Reveals the patient's white count is 6.4, hemoglobin of 9, platelets of 256. Chemistries are noted. BUN of 9, creatinine of 0.9. Urinalysis is noted, 0-2 wbc's, many bacteria. ASSESSMENT AND PLAN: An 87-year-old with sepsis with Klebsiella urinary tract infection with cultures and now with the biopsy result metastatic squamous cell carcinoma from 11/22/2017. Microbiology reveals the urine culture has a gram-positive cocci and initial Klebsiella. Sensitivity of the organism is noted and case discussed with Dr. Floyd. The patient is currently on gentamicin once daily. The patient is very concerned about pseudomembranous colitis and any antibiotic use. We will follow with you. Sebastian Álvarez MD [facility] # [id number]
[2017-11-25] MEDS: Lactobacillus Acidophilus 500 MU Cap PO SCH ×2 (09:34→17:33)
--- NOTE | 2017-11-25 14:25 | PN ---
DATE: 11/25/2017 SUBJECTIVE: The patient is in bed, in no acute distress. PHYSICAL EXAMINATION: VITAL SIGNS: Temperature is 98, blood pressure is 120/70, respiratory rate of 16. HEENT: Examination of HEENT is unremarkable. NECK: Supple. LUNGS: Have decreased breath sounds. HEART: Normal S1, S2. ABDOMEN: Soft, nontender. LABORATORY EXAMINATION: Reviewed. ASSESSMENT AND PLAN: An 87-year-old female who was seen early this morning in room 320 with a history of depression, history of cataracts, history of right ear deafness, irritable bowel syndrome with perirenal mass and admitted to acute care. Diagnoses of hydronephrosis and had sepsis with Klebsiella urinary tract infection and had a biopsy, which is consistent with metastatic squamous cell carcinoma from 11/22/2017 and currently on gentamicin. Follow the renal function closely. Sebastian Álvarez MD
--- NOTE | 2017-11-25 17:16 | PN ---
DATE: 11/25/2017 SUBJECTIVE: The patient has no complaints of any chest pain, no shortness of breath, no headaches.. PHYSICAL EXAMINATION: VITAL SIGNS: Temperature is 98.5, pulse of 89, blood pressure 126/56, respirations 18. GENERAL: The patient is lying in bed, flat, comfortable. HEENT: No oral lesion. Anicteric sclerae. Moist mucosa. NECK: No JVD, adenopathy, or thyromegaly. CARDIOVASCULAR: S1 and S2, regular. No murmurs, rubs, or gallops. LUNGS: Clear to auscultation bilaterally. No wheeze, rales, or rhonchi. ABDOMEN: Bowel sounds are positive, soft, nontender and nondistended. EXTREMITIES: No cyanosis, clubbing or edema. ASSESSMENT: 1. 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 2. Left renal hydronephrosis. 3. Left-sided abdominal mass, 3 x 2 cm. 4. Paraaortic lymph node. 5. Hepatic cyst. 6. Anxiety and depression. 7. Osteoarthritis. 8. Dyslipidemia. 9. Clostridium difficile. 10. TETRACYCLINE ALLERGY. PLAN: The patient is currently comfortable. She is going for a stent in her left kidney tomorrow to be done by Dr. Sorto. She states she is nervous about the case. The patient has squamous cell on the lymph node biopsy, unknown what the primary is. I will get Dr. Hernandez to evaluate further. The patient is going to continue with Percocet for pain. She is on Remeron. She is on Dilaudid for pain. Oleg Floyd MD
--- NOTE | 2017-11-26 08:53 | CON ---
DATE: 11/23/2017 GENITOURINARY CONSULTATION CHIEF COMPLAINT: Abdominal pain HISTORY OF PRESENT ILLNESS: This is an 87-year-old female who is seen in [facility]. Patient was complaining of abdominal and left-sided flank pain for a few days prior to admission. The patient had a CT scan showing left hydronephrosis secondary to an enlarged lymph node or mass in the left retroperitoneum. Patient underwent a CT-guided biopsy of the mass. The pathology reveals squamous carcinoma by verbal report from Pathology. Patient is seen now 1 day after her biopsy. She reports she is feeling well. She has mild left flank pain; however, it is improved. Patient reports urinary frequency, but she denies any dysuria, urgency or gross hematuria. She reports this has been present for many years. She denies any recent weight loss. consultation was called regarding renal mass as well as hydronephrosis. PAST MEDICAL HISTORY: Significant for colitis, dyslipidemia, arthritis, pneumonia, recurrent UTIs, depression and anxiety. MEDICATIONS: Currently include Abilify, Bacid, Klonopin, Paxil, Percocet, Remeron, Tylenol, Zofran. ALLERGIES: ALLERGIC TO TETRACYCLINE. FAMILY HISTORY: Noncontributory for this admission. SOCIAL HISTORY: Denies any smoking or EtOH use. REVIEW OF SYSTEMS: Patient reports anxiety and depression. She is very nervous about what is going on. Positive for abdominal pain and left flank pain. No nausea or vomiting. Positive for urinary frequency and history of urinary infections. Denies any gross hematuria. All other systems are negative. PHYSICAL EXAMINATION: GENERAL: Patient is awake and alert. She is answering questions coherently. She does have some difficulty hearing. VITAL SIGNS: She is afebrile. Temperature of 98.1, pulse is 80, respirations 18. NECK: Supple. There is no adenopathy noted. CHEST: Revealed normal inspiratory effort. CARDIAC: Shows positive S1, S2. There is no peripheral edema. ABDOMEN: Abdomen is soft, nontender, nondistended. There is no hepatosplenomegaly. There is mild tenderness in her back over the biopsy site. There is no bruising. Mild left CVA tenderness. No right CVA tenderness. No obvious masses. EXTREMITIES: There is no cyanosis, edema. LABORATORY EXAMINATION: WBC count came down from 12.3 to 6.4. GFR was 59. Urinalysis showed 10 to 15 rbc's, 0 to 2 wbc, few epithelial cells, nitrites were positive. Urine culture grew Klebsiella pneumonia. Blood cultures negative. On radiologic exam, patient had a CT scan of the abdomen and pelvis, which showed hydronephrosis of the left kidney with left hydroureter; anterior to the left psoas muscle, there is a 2 x 4 x 1.7 cm mass, which appears to obstruct the left ureter. In the mid pole of the left kidney, there is an exophytic complex cystic lesion with thickening. There is diverticulosis. There is a left adnexal mass 4 x 3 x 4 cm, which has mildly increased in size. There was wall thickening of the stomach with incomplete distention or gastritis. IMPRESSION AND PLAN: This is an 87-year-old female with new onset left hydronephrosis from an apparent retroperitoneal malignancy. By pathology report, the mass was squamous cell carcinoma. No obvious primary is noted. Urologically, the plan will be to perform a cystoscopy with retrograde pyelogram and place a ureteral stent to unobstruct the kidney and protect the kidney for now and just likely the patient will need some type of chemotherapy or other treatment to remove this mass,need to continue investigation to find the primary if this is metastatic. Thank you for allowing me to participate in the care of this patient. We will continue to follow her with you. Tru Sorto MD
[2017-11-26] MEDS ORDERED: Lactated Ringer's 1,000 ML IV SCH (09:30)
--- NOTE | 2017-11-26 11:19 | CP.PCM.CON ---
<David Darby - Last Filed: 11/26/17 10:58> History of Present Illness - History of Present Illness History of Present Illness: GI Consult Note Dr. Gutierrez CC: Left Sided body pain HPI: 25 M with a PMHx of sickle cell anemia presenting to [facility] ED by wheelchair as he has complaints of left sided body that radiates to the lower extremities. In ED, pt was mildly hypoxic with 02 sats in low 90%, placed on 2-3L NC, which he tolerated. Pt was seen and examined at bedside. Pt has complaints of pain, however is under better control than when arrived. Pt states that upon arrival the intensity of the pain was 10/10, now is 6-7/10. Pain is constant with radiation into the lower extremities. No alleviated or aggravating factors. GI was consulted for transaminemia. Pt denied fever, chills, sob, chest pains, abdominal pain, nausea, vomiting, diarrhea, constipation, or urinary symptoms. PMHx; Sickle cell anemia PSHx: Denied Famhx: Denied SHx; Admits to marijuana use,denied EToh, denied tobacco Allergies: Tetracycline Meds: MAR Reviewed PMD: Dr Sandoval Review of Systems - Review of Systems Review of Systems: as per HPI otherwise negative Past Patient History - Infectious Disease Hx of Infectious Diseases: C.diff - Tetanus Immunizations Tetanus Immunization: Unknown - Past Social History Smoking Status: Former Smoker - CARDIAC Hx Hypercholesterolemia: Yes - PULMONARY Hx Respiratory Disorders: Yes (SMOKED CIGARETTES BEFORE QUIT PK EVERY OTHER DAY) Hx Tuberculosis: No - NEUROLOGICAL Hx Dizziness: Yes - HEENT Hx HEENT Problems: Yes Hx Cataracts: Yes 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) - RENAL Hx Chronic Kidney Disease: No - ENDOCRINE/METABOLIC Hx Endocrine Disorders: No - HEMATOLOGICAL/ONCOLOGICAL Hx Cancer: No - INTEGUMENTARY Hx Dermatological Problems: Yes - MUSCULOSKELETAL/RHEUMATOLOGICAL Hx Arthritis: Yes - GASTROINTESTINAL Hx Gastrointestinal Disorders: Yes - GENITOURINARY/GYNECOLOGICAL Hx Genitourinary Disorders: Yes Hx Reproductive Disorders: Yes - PSYCHIATRIC Hx Anxiety: Yes Hx Depression: Yes Hx Panic Symptoms: Yes Hx Substance Use: No - SURGICAL HISTORY Hx Appendectomy: Yes - ANESTHESIA Hx Anesthesia: Yes Hx Anesthesia Reactions: No Hx Malignant Hyperthermia: No Meds Allergies/Adverse Reactions: Allergies Allergy/AdvReac Type Severity Reaction Status Date / Time tetracycline Allergy Severe ANAPHYLAXIS Verified 11/24/17 20:17 - Medications Medications: Current Medications Acetaminophen (Tylenol 325mg Tab) 650 mg PO Q4H PRN; Protocol PRN Reason: Pain, Mild (1-3) Last Admin: 11/25/17 19:25 Dose: 650 mg Artificial Tears (Refresh Opth Soln) 0.3 ml OU TID EZEQUIEL PRN Reason: Protocol Clonazepam (Klonopin) 1 mg PO 0800,1400,1800 EZEQUIEL PRN Reason: Protocol Last Admin: 11/26/17 08:46 Dose: Not Given Gentamicin Sulfate 130 mg/ (Sodium Chloride) 103.25 mls @ 100 mls/hr IVPB DAILY [facility] Last Admin: 11/25/17 09:34 Dose: 100 mls/hr Lactated Ringer's (Lactated Ringer's) 1,000 mls @ 75 mls/hr IV .[id number] EZEQUIEL Stop: 11/26/17 11:31 Lactobacillus Acidophilus (Bacid Acidophilus) 1 cap PO BID EZEQUIEL PRN Reason: Protocol Last Admin: 11/25/17 17:33 Dose: 1 cap Mirtazapine (Remeron) 30 mg PO HS EZEQUIEL PRN Reason: Protocol Last Admin: 11/25/17 21:11 Dose: 30 mg Oxycodone/Acetaminophen (Percocet 5/325 Mg Tab) 1 tab PO Q4H PRN; Protocol PRN Reason: Pain, moderate (4-7) Stop: 11/26/17 19:08 Paroxetine HCl (Paxil) 30 mg PO HS EZEQUIEL PRN Reason: Protocol Last Admin: 11/25/17 21:11 Dose: 30 mg Physical Exam - Constitutional Appears: No Acute Distress - Head Exam Head Exam: ATRAUMATIC, NORMAL INSPECTION, NORMOCEPHALIC - Eye Exam Eye Exam: EOMI, Normal appearance, PERRL Pupil Exam: NORMAL ACCOMODATION, PERRL - ENT Exam ENT Exam: Mucous Membranes Dry - Neck Exam Neck exam: Positive for: Normal Inspection - Respiratory Exam Respiratory Exam: Clear to Auscultation Bilateral, NORMAL BREATHING PATTERN - Cardiovascular Exam Cardiovascular Exam: REGULAR RHYTHM, +S1, +S2 - GI/Abdominal Exam GI & Abdominal Exam: Normal Bowel Sounds, Soft. absent: Tenderness - Extremities Exam Extremities exam: Positive for: tenderness - Back Exam Back exam: tenderness - Neurological Exam Neurological exam: Alert, CN II-XII Intact, Normal Gait, Oriented x3, Reflexes Normal - Psychiatric Exam Psychiatric exam: Normal Affect, Normal Mood - Skin Skin Exam: Dry, Intact, Normal Color, Warm Results - Vital Signs Recent Vital Signs: Last Vital Signs Temp 97.9 F 11/26/17 06:00 Pulse 69 11/26/17 06:00 Resp 18 11/26/17 06:00 BP 132/72 11/26/17 06:00 Pulse Ox 95 11/26/17 06:00 Assessment & Plan - Assessment and Plan (Free Text) Assessment: sickle cell anemia transaminemia hyperbilirubinemia cannabis abuse Plan: abdominal US trend LFTs Hep panel fu analgesics Pepcid Zopushpa pottsyl, triny IVF @150 [facility] <Rai Gutierrez V - Last Filed: 11/26/17 23:41> Meds - Medications Medications: Current Medications Acetaminophen (Tylenol 325mg Tab) 650 mg PO Q4H PRN; Protocol PRN Reason: Pain, Mild (1-3) Last Admin: 11/26/17 14:12 Dose: 650 mg Artificial Tears (Refresh Opth Soln) 0.3 ml OU TID EZEQUIEL PRN Reason: Protocol Last Admin: 11/26/17 17:43 Dose: 0.3 ml Clonazepam (Klonopin) 1 mg PO 0800,1400,1800 EZEQUIEL PRN Reason: Protocol Last Admin: 11/26/17 21:24 Dose: 1 mg Gentamicin Sulfate 130 mg/ (Sodium Chloride) 103.25 mls @ 100 mls/hr IVPB DAILY E[facility] Last Admin: 11/26/17 11:23 Dose: 100 mls/hr Lactobacillus Acidophilus (Bacid Acidophilus) 1 cap PO BID EZEQUIEL PRN Reason: Protocol Last Admin: 11/26/17 17:43 Dose: 1 cap Mirtazapine (Remeron) 30 mg PO HS EZEQUIEL PRN Reason: Protocol Last Admin: 11/26/17 21:25 Dose: 30 mg Paroxetine HCl (Paxil) 30 mg PO HS EZEQUIEL PRN Reason: Protocol Last Admin: 11/26/17 21:25 Dose: 30 mg Results - Vital Signs Recent Vital Signs: Last Vital Signs Temp 98.7 F 11/26/17 18:15 Pulse 83 11/26/17 18:15 Resp 18 11/26/17 18:15 BP 109/65 03/19/18 18:15 Pulse Ox 97 11/26/17 18:15 - Labs Result Diagrams: 11/26/17 12:10 11/26/17 12:10 Labs: Laboratory Results - last 24 hr 11/26/17 11/26/17 12:10 12:10 WBC 12.4 H D RBC 3.75 Hgb 11.3 L Hct 34.6 L MCV 92.3 MCH 30.1 MCHC 32.7 RDW 15.2 H Plt Count 277 MPV 8.8 Gran % 65.3 Lymph % (Auto) 24.4 [place] % (Auto) 9.3 H Eos % (Auto) 0.8 L Baso % (Auto) 0.2 Gran # 8.10 H Lymph # (Auto) 3.0 [place] # (Auto) 1.2 H Eos # (Auto) 0.1 Baso # (Auto) 0.03 Sodium 136 Potassium 4.3 Chloride 98 Carbon Dioxide 28 Anion Gap 15 BUN 16 Creatinine 0.9 Est GFR ( Amer) > 60 Est GFR (Non-Af Amer) 59 Random Glucose 102 Calcium 9.8 Total Bilirubin 0.2 AST 20 ALT 17 Alkaline Phosphatase 74 Total Protein 6.8 Albumin 3.6 Globulin 3.2 Albumin/Globulin Ratio 1.1 Attending/Attestation - Attestation I have personally seen and examined this patient.: Yes I have fully participated in the care of the patient.: Yes I have reviewed all pertinent clinical information: Yes Notes (Text): This is an addendum to GI consult report dictated by the Repairer Shoe Sticks.The patient was seen and examined earlier. Medical records, lab studies, imagings were reviewed. Last 24 hours events reviewed. Agreed with the above treatment plan as outlined in Repairer Shoe Sticks 's notes the with the addition of the following 11/26/17 23:41
[2017-11-26] MEDS: Lactobacillus Acidophilus 500 MU Cap PO SCH ×2 (11:24→17:43)
[2017-11-26] MEDS: Lubricant Eye Drops UD OU SCH ×3 (11:53→17:43)
[2017-11-26 12:26] LABS: BASO # 0.03 K/mm3 (0.0-2.0); BASO % 0.2 % (0.0-3.0); EOS # 0.1 (0.0-0.7); EOS % 0.8 % (1.5-5.0); GRAN # 8.1 (1.4-6.5); GRAN % 65.3 % (50.0-68.0); HEMOGLOBIN 11.3 g/dL (12.0-16.0); LYMPH % 24.4 % (22.0-35.0); MEAN CELL VOLUME 92.3 fl (80.0-105.0); MEAN CORPUSCULAR HEMOGLOBIN 30.1 pg (25.0-35.0); MEAN CORPUSCULAR HGB CONC 32.7 g/dl (31.0-37.0); MEAN PLATELET VOLUME 8.8 fl (7.0-11.0); MONO # 1.2 (0.1-0.6); MONO % 9.3 % (1.0-6.0); RBC 3.75 10^6/uL (3.5-6.1); RED CELL DISTRIBUTION WIDTH 15.2 % (11.5-14.5); WHITE BLOOD COUNT 12.4 10^3/ul (4.5-11.0)
[2017-11-26 12:42] LABS: ALB/GLOB RATIO 1.1 (1.1-1.8); ALBUMIN 3.6 g/dL (3.0-4.8); ALT/SGPT 17 U/L (7-56); AST/SGOT 20 U/L (14-36); BLOOD UREA NITROGEN 16 mg/dL (7-21); CALCIUM 9.8 mg/dL (8.4-10.5); GFR AFRICAN-AMERICAN > 60; GFR NON-AFRICAN AMERICAN 59
--- NOTE | 2017-11-26 14:49 | CP.PCM.PN ---
Subjective - Date & Time of Evaluation Date of Evaluation: 11/26/17 Time of Evaluation: 12:40 - Subjective Subjective: Resting comfortably in bed, no fevers, not in distress. Objective - Vital Signs/Intake and Output Vital Signs (last 24 hours): Temp Pulse Resp BP Pulse Ox 97.9 F 69 18 132/72 95 11/26/17 06:00 11/26/17 06:00 11/26/17 06:00 11/26/17 06:00 11/26/17 06:00 - Medications Medications: Current Medications Acetaminophen (Tylenol 325mg Tab) 650 mg PO Q4H PRN; Protocol PRN Reason: Pain, Mild (1-3) Last Admin: 11/25/17 19:25 Dose: 650 mg Artificial Tears (Refresh Opth Soln) 0.3 ml OU TID EZEQUIEL PRN Reason: Protocol Clonazepam (Klonopin) 1 mg PO 0800,1400,1800 EZEQUIEL PRN Reason: Protocol Last Admin: 11/26/17 11:24 Dose: 1 mg Gentamicin Sulfate 130 mg/ (Sodium Chloride) 103.25 mls @ 100 mls/hr IVPB DAILY [facility] Last Admin: 11/26/17 11:23 Dose: 100 mls/hr Lactated Ringer's (Lactated Ringer's) 1,000 mls @ 75 mls/hr IV .[id number] [facility] Stop: 11/26/17 11:31 Lactobacillus Acidophilus (Bacid Acidophilus) 1 cap PO BID EZEQUIEL PRN Reason: Protocol Last Admin: 11/26/17 11:24 Dose: 1 cap Mirtazapine (Remeron) 30 mg PO HS EZEQUIEL PRN Reason: Protocol Last Admin: 11/25/17 21:11 Dose: 30 mg Oxycodone/Acetaminophen (Percocet 5/325 Mg Tab) 1 tab PO Q4H PRN; Protocol PRN Reason: Pain, moderate (4-7) Stop: 11/26/17 19:08 Paroxetine HCl (Paxil) 30 mg PO HS EZEQUIEL PRN Reason: Protocol Last Admin: 11/25/17 21:11 Dose: 30 mg - Constitutional Appears: Chronically Ill - Head Exam Head Exam: NORMAL INSPECTION - ENT Exam ENT Exam: Mucous Membranes Moist - Neck Exam Neck Exam: absent: Meningismus - Respiratory Exam Respiratory Exam: Decreased Breath Sounds - Cardiovascular Exam Cardiovascular Exam: +S1, +S2 - GI/Abdominal Exam GI & Abdominal Exam: Soft. absent: Tenderness Assessment and Plan - Assessment and Plan (Free Text) Plan: Assessment consider sepsis due to UTI with Klebsiella perirenal mass ,etiology to be determined history of sepsis due to severe C. diff. colitis history of sepsis due to left lower lobe community-acquired pneumonia R/O UTI from Klebsiella depression cataracts right ear deafness history of C. diff. infection irritable bowel syndrome S/P appendectomy Plan continue Gentamicin day 3 and target 7-10 days follow up biopsy results of the perirenal mass
--- NOTE | 2017-11-26 16:06 | CP.PCM.PCO ---
Physician Communication Note - Physician Communication Note Physician Communication Note: due to high volume of pt, will f/u on this pt tomorrow, no acute issues.
--- NOTE | 2017-11-26 18:08 | PN ---
DATE: 11/26/2017 SUBJECTIVE: The patient has no complaints of any headaches or dizziness. No nausea. No vomiting. PHYSICAL EXAMINATION: VITAL SIGNS: Temperature is 97.9, pulse of 69, blood pressure is 132/72, respirations 18. GENERAL: The patient is lying in bed, flat, comfortable. HEENT: No oral lesion. Anicteric sclerae. Moist mucosa. NECK: No JVD, adenopathy, or thyromegaly. CARDIOVASCULAR: S1 and S2, regular. No murmurs, rubs, or gallops. LUNGS: Clear to auscultation bilaterally. No wheeze, rales, or rhonchi. ABDOMEN: Bowel sounds are positive, soft, nontender and nondistended. EXTREMITIES: No cyanosis, clubbing or edema. LABORATORY DATA: White count of 12.4, hemoglobin 11.3, creatinine 0.9. ASSESSMENT: 1. 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 2. Left renal hydronephrosis. 3. Left-sided abdominal mass, 3 x 2 cm. 4. Paraaortic lymph node. 5. Hepatic cyst. 6. Anxiety and depression. 7. Osteoarthritis. 8. Dyslipidemia. 9. History of Clostridium difficile. 10. Tetracycline allergy. PLAN: The patient is currently comfortable. She is on gentamicin for antibiotics. The patient is being followed by Infectious Disease. The patient is on mirtazapine. She is on Tylenol. I did speak to the patient's daughter yesterday to give her an update on the patient's diagnoses and plan of care. We spoke about the patient's biopsy results. At this point, the patient is going to have her stent placed. Once she has the stent is placed, this will help her with the hydronephrosis that she has. Oleg Floyd MD
[2017-11-27] MEDS: Oxycodone/Acetaminophen 5/325 mg Tab PO PRN ×2 (00:41→21:28)
[2017-11-27] MEDS: Lactobacillus Acidophilus 500 MU Cap PO SCH ×2 (09:24→17:28)
[2017-11-27] MEDS: Lubricant Eye Drops UD OU SCH ×3 (09:24→17:28)
--- NOTE | 2017-11-27 12:29 | CP.PCM.PN ---
Subjective - Date & Time of Evaluation Date of Evaluation: 11/27/17 Time of Evaluation: 10:50 - Subjective Subjective: Seen and examined at the bedside earlier today, chart review. Patient denies nausea, vomiting, or abdominal pain. Status post lymph node biopsy which is positive for squamous cell carcinoma, patient awaiting oncology evaluation. Patient reports soft formed BMs, no reports of overt GI bleed. Objective - Vital Signs/Intake and Output Vital Signs (last 24 hours): Temp Pulse Resp BP Pulse Ox 98.7 F 83 18 109/65 97 11/26/17 18:15 11/26/17 18:15 11/26/17 18:15 11/26/17 18:15 11/26/17 18:15 - Medications Medications: Current Medications Acetaminophen (Tylenol 325mg Tab) 650 mg PO Q4H PRN; Protocol PRN Reason: Pain, Mild (1-3) Last Admin: 11/26/17 14:12 Dose: 650 mg Artificial Tears (Refresh Opth Soln) 0.3 ml OU TID EZEQUIEL PRN Reason: Protocol Last Admin: 11/27/17 09:24 Dose: 0.3 ml Clonazepam (Klonopin) 1 mg PO 0800,1400,1800 EZEQUIEL PRN Reason: Protocol Last Admin: 11/27/17 08:30 Dose: 1 mg Lactobacillus Acidophilus (Bacid Acidophilus) 1 cap PO BID EZEQUIEL PRN Reason: Protocol Last Admin: 11/27/17 09:24 Dose: 1 cap Mirtazapine (Remeron) 30 mg PO HS EZEQUIEL PRN Reason: Protocol Last Admin: 11/26/17 21:25 Dose: 30 mg Oxycodone/Acetaminophen (Percocet 5/325 Mg Tab) 1 tab PO Q4H PRN PRN Reason: severe pain Stop: 11/30/17 00:34 Last Admin: 11/27/17 00:41 Dose: 1 tab Paroxetine HCl (Paxil) 30 mg PO HS EZEQUIEL PRN Reason: Protocol Last Admin: 11/26/17 21:25 Dose: 30 mg - Labs Labs: 11/26/17 12:10 11/26/17 12:10 - Constitutional Appears: No Acute Distress - Head Exam Head Exam: NORMOCEPHALIC - Eye Exam Eye Exam: Normal appearance. absent: Scleral icterus - ENT Exam ENT Exam: Mucous Membranes Moist - Neck Exam Neck Exam: Normal Inspection - Respiratory Exam Respiratory Exam: NORMAL BREATHING PATTERN. absent: Respiratory Distress - Cardiovascular Exam Cardiovascular Exam: +S1, +S2 - GI/Abdominal Exam GI & Abdominal Exam: Soft, Normal Bowel Sounds. absent: Guarding, Tenderness, Rebound - Extremities Exam Extremities Exam: absent: Calf Tenderness, Pedal Edema - Neurological Exam Neurological Exam: Alert, Awake, Oriented x3 - Skin Skin Exam: Dry, Warm Assessment and Plan - Assessment and Plan (Free Text) Assessment: Assessment: Left node squamous cell carcinoma Irritable bowel syndrome gastroenteritis, diarrhea improved Hx C. diff. colitis, C. difficile negative Liver lesion, status post abdominal MRI showing 3 hepatic cysts, no suspicion for liver mass Para-aortic lymph nodes Left renal hydronephrosis Depression Cataracts Right ear deafness Plan: probiotics diet as tolerated Urology plan for cysto and renal stent oncology FU Seen and discussed with Dr Gutierrez
[2017-11-27] MEDS ORDERED: Alum-Mag Hydrox-Simethicone Susp (30 mL) PO PRN (14:52)
--- NOTE | 2017-11-27 20:17 | PN ---
DATE: SUBJECTIVE: The patient has no complaints of any chest pain. No shortness of breath. No headaches. No dizziness. She slept well last night. OBJECTIVE: VITAL SIGNS: Temperature is 98.3, pulse of 96, blood pressure 104/58, respirations 18. GENERAL: The patient is lying in bed, flat, comfortable. HEENT: No oral lesion. Anicteric sclerae. Moist mucosa. NECK: No JVD, adenopathy, or thyromegaly. CARDIOVASCULAR: S1 and S2, regular. No murmurs, rubs, or gallops. LUNGS: Clear to auscultation bilaterally. No wheeze, rales, or rhonchi. ABDOMEN: Bowel sounds are positive, soft, nontender and nondistended. EXTREMITIES: No cyanosis, clubbing, or edema. LABORATORY DATA: White count is 12.4, hemoglobin 11.3. Creatinine is 0.9. ASSESSMENT: 1. Metastatic squamous cell carcinoma by lymph node biopsy. 2. Left renal hydronephrosis with stent placement. 3. Left-sided abdominal mass, 3 x 2 cm with biopsy showing squamous cell carcinoma. 4. Paraaortic lymph node. 5. Hepatic cyst. 6. Anxiety and depression. 7. Osteoarthritis. 8. Dyslipidemia. 9. History of Clostridium difficile. 10. TETRACYCLINE ALLERGY. PLAN: The patient is currently comfortable. I did about the biopsy results. I had a family meeting with the patient's daughter and son at the bedside. I was able to answer to the questions regarding prognosis and treatment options. I advised them to speak with Dr. Hernandez who will be seeing the patient today for Oncology. The patient is currently on Pepcid. She is going to be on Percocet for pain. She is on Remeron. She is going to continue with her regular diet. She is doing well with physical therapy. She has no complications after the stent that was placed yesterday. The report indicates that the patient has had bladder lesions. Oleg Floyd MD
--- NOTE | 2017-11-27 23:01 | CP.PCM.CON ---
History of Present Illness - History of Present Illness History of Present Illness: Patient is an 87 year old female. She underwent CT guided biopsy of left sided adominal mass. Pathology showed squamus cell cancer. She has been very healthy all her life. She underwent let ureteral stent placement today. has good performance status. Review of Systems - Constitutional Constitutional: As Per HPI - EENT Eyes: absent: As Per HPI, Blind Spots, Blurred Vision, Change in Vision, Decreased Night Vision, Diplopia, Discharge, Dry Eye, Exophthalmos, Floaters, Irritation, Itchy Eyes, Loss of Peripheral Vision, Pain, Photophobia, Requires Corrective Lenses, Sees Flashes, Spots in Vision, Tunnel Vision, Other Visual Disturbances, Loss of Vision, Other Ears: absent: As Per HPI, Decreased Hearing, Ear Discharge, Ear Pain, Tinnitus, Abnormal Hearing, Disequilibrium, Dizziness, Other Nose/Mouth/Throat: absent: As Per HPI, Epistaxis, Nasal Congestion, Nasal Discharge, Nasal Obstruction, Nasal Trauma, Nose Pain, Post Nasal Drip, Sinus Pain, Sinus Pressure, Bleeding Gums, Change in Voice, Dental Pain, Dry Mouth, Dysphagia, Halitosis, Hoarsness, Lip Swelling, Mouth Lesions, Mouth Pain, Odynophagia, Sore Throat, Throat Swelling, Tongue Swelling, Facial Pain, Neck Pain, Neck Mass, Other - Breasts Breasts: absent: As Per HPI, Change in Shape, Mass, Pain, Nipple Discharge, Nipple Inversion, Skin Changes, Swelling, Other - Cardiovascular Cardiovascular: absent: As Per HPI, Acrocyanosis, Chest Pain, Chest Pain at Rest , Chest Pain with Activity, Claudication, Diaphoresis, Dyspnea, Dyspnea on Exertion, Edema, Irregular Heart Rhythm, Pain Radiating to Arm/Neck/Jaw, Leg Edema, Leg Ulcers, Lightheadedness, Orthopnea, Palpitations, Paroxysmal Nocturnal Dyspnea, Pedal Edema, Radiating Pain, Rapid Heart Rate, Slow Heart Rate, Syncope, Other - Gastrointestinal Gastrointestinal: absent: As Per HPI, Abdominal Pain, Belching, Bloating, Change in Bowel Habits, Change in Stool Character, Coffee Ground Emesis, Constipation, Cramping, Diarrhea, Dyspepsia, Dysphagia, Early Satiety, Excessive Flatus, Fecal Incontinence, Heartburn, Hematemesis, Hematochezia, Loose Stools, Melena, Nausea, Odynophagia, Temesmus, Vomiting, Other - Genitourinary Genitourinary: As Per HPI - Menstruation Menstruation: absent: As Per HPI, Amenorrhea, Amenorrhea/ Control, Currently Menstual, Cycle <21 Days, Cycle >35 Days, Cycle Variable, Menses 1-7 Days, Menses >/= 8 Days, Menses Variable, Cycle > 4 Weeks Between, No Menses for 6 Months, Heavy Menses, Light Menses, Normal Menses, Spotting Between Cycles , S/P Hysterectomy, Menopausal, Post Menopausal, Premenarche, Abnormal Vaginal Bleeding, Dysmenorrhea, Other - Musculoskeletal Musculoskeletal: absent: As Per HPI, Abnormal Gait, Arthralgias, Atrophy, Back Pain, Deformity, Joint Swelling, Limited Range of Motion, Loss of Height, Muscle Cramps, Muscle Weakness, Myalgias, Neck Pain, Numbness, Radiating Pain into Limb, Stiffness, Tingling, Other - Neurological Neurological: absent: As Per HPI, Abnormal Gait, Abnormal Hearing, Abnormal Movements, Abnormal Speech, Behavioral Changes, Burning Sensations, Confusion, Convulsions, Disequilibrium, Dizziness, Numbness, Focal Weakness, Frequent Falls , Headaches, Lack of Coordination, Loss of Vision, Memory Loss, Paresthesias, Radicular Pain, Restless Legs, Sensory Deficit, Syncope, Tingling, Tremor, Vertigo, Weakness, Other Visual Disturbances, Other - Psychiatric Psychiatric: absent: As Per HPI, Abnormal Sleep Pattern, Anhedonia, Anxiety, Auditory Hallucinations, Behavioral Changes, Change in Appetite, Change in Libido, Confusion, Depression, Difficulty Concentrating, Hallucinations, Homicidal Ideation, Hopelessness, Irritability, Memory Loss, Mood Swings, Panic Attacks, Paranoia, Suicidal Ideation, Visual Hallucinations, Tactile Hallucinations, Other - Endocrine Endocrine: absent: As Per HPI, Change in Body Appearance, Change in Libido, Cold Intolorance, Deepening of Voice, Excessive Sweating, Fatigue, Flushing, Heat Intolorance, Increase in Ring/Shoe/Hat Size, Palpitations, Polydipsia, Polyphagia, Polyuria, Other - Hematologic/Lymphatic Hematologic: absent: As Per HPI, Easy Bleeding, Easy Bruising, Lymphadenopathy, Other Past Patient History - Infectious Disease Hx of Infectious Diseases: C.diff - Tetanus Immunizations Tetanus Immunization: Unknown - Past Social History Smoking Status: Former Smoker - CARDIAC Hx Hypercholesterolemia: Yes - PULMONARY Hx Respiratory Disorders: Yes (SMOKED CIGARETTES BEFORE QUIT PK EVERY OTHER DAY) Hx Tuberculosis: No - NEUROLOGICAL Hx Dizziness: Yes - HEENT Hx HEENT Problems: Yes Hx Cataracts: Yes 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) - RENAL Hx Chronic Kidney Disease: No - ENDOCRINE/METABOLIC Hx Endocrine Disorders: No - HEMATOLOGICAL/ONCOLOGICAL Hx Cancer: No - INTEGUMENTARY Hx Dermatological Problems: Yes - MUSCULOSKELETAL/RHEUMATOLOGICAL Hx Arthritis: Yes - GASTROINTESTINAL Hx Gastrointestinal Disorders: Yes - GENITOURINARY/GYNECOLOGICAL Hx Genitourinary Disorders: Yes Hx Reproductive Disorders: Yes - PSYCHIATRIC Hx Anxiety: Yes Hx Depression: Yes Hx Panic Symptoms: Yes Hx Substance Use: No - SURGICAL HISTORY Hx Appendectomy: Yes - ANESTHESIA Hx Anesthesia: Yes Hx Anesthesia Reactions: No Hx Malignant Hyperthermia: No Meds Allergies/Adverse Reactions: Allergies Allergy/AdvReac Type Severity Reaction Status Date / Time tetracycline Allergy Severe ANAPHYLAXIS Verified 11/24/17 20:17 - Medications Medications: Current Medications Acetaminophen (Tylenol 325mg Tab) 650 mg PO Q4H PRN; Protocol PRN Reason: Pain, Mild (1-3) Last Admin: 11/27/17 12:34 Dose: 650 mg Al Hydrox/Mg Hydrox/Simethicone (Maalox Plus 30 Ml) 30 ml PO Q6H PRN PRN Reason: Diarrhea Last Admin: 11/27/17 16:03 Dose: 30 ml Artificial Tears (Refresh Opth Soln) 0.3 ml OU TID EZEQUIEL PRN Reason: Protocol Last Admin: 11/27/17 17:28 Dose: 0.3 ml Clonazepam (Klonopin) 1 mg PO 0800,1400,1800 EZEQUIEL PRN Reason: Protocol Last Admin: 11/27/17 17:28 Dose: 1 mg Lactobacillus Acidophilus (Bacid Acidophilus) 1 cap PO BID EZEQUIEL PRN Reason: Protocol Last Admin: 11/27/17 17:28 Dose: 1 cap Mirtazapine (Remeron) 30 mg PO HS EZEQUIEL PRN Reason: Protocol Last Admin: 11/27/17 20:59 Dose: 30 mg Oxycodone/Acetaminophen (Percocet 5/325 Mg Tab) 1 tab PO Q4H PRN PRN Reason: severe pain Stop: 11/30/17 00:34 Last Admin: 11/27/17 21:28 Dose: 1 tab Paroxetine HCl (Paxil) 30 mg PO HS EZEQUIEL PRN Reason: Protocol Last Admin: 11/27/17 20:59 Dose: 30 mg Physical Exam - Constitutional Appears: Well - Head Exam Head Exam: ATRAUMATIC, NORMAL INSPECTION, NORMOCEPHALIC - Eye Exam Eye Exam: Normal appearance Pupil Exam: NORMAL ACCOMODATION - ENT Exam ENT Exam: Mucous Membranes Moist, Normal Exam - Neck Exam Neck exam: Positive for: Normal Inspection - Respiratory Exam Respiratory Exam: Clear to Auscultation Bilateral, NORMAL BREATHING PATTERN - GI/Abdominal Exam GI & Abdominal Exam: Normal Bowel Sounds - Extremities Exam Extremities exam: Positive for: normal inspection - Back Exam Back exam: NORMAL INSPECTION - Neurological Exam Neurological exam: Alert, CN II-XII Intact, Normal Gait, Oriented x3 - Psychiatric Exam Psychiatric exam: Normal Mood - Skin Skin Exam: Normal Color, Warm Results - Vital Signs Recent Vital Signs: Last Vital Signs Temp 97.8 F 11/27/17 17:47 Pulse 93 H 11/27/17 17:47 Resp 20 11/27/17 17:47 BP 132/77 11/27/17 17:47 Pulse Ox 99 11/27/17 17:47 - Labs Result Diagrams: 11/26/17 12:10 11/26/17 12:10 Assessment & Plan - Assessment and Plan (Free Text) Assessment: 1. Squamus cell cancer , Stage IV, unknown primary. Family meeting tomorrow with Dr. Floyd. I will discuss with patient diagnosis tomorrow. She is aware that biopsy might show cancer. 2. Ureteral stent placed today. left sided hydronephrosis. urology following. 3. Blood counts stable. 4. participating in PT. Thank you Dr. Floyd for allowing us to participate in her care.
--- NOTE | 2017-11-27 23:13 | CP.PCM.PN ---
Subjective - Date & Time of Evaluation Date of Evaluation: 11/27/17 Time of Evaluation: 18:00 - Subjective Subjective: Comfortable in bed. Oral intake is good. Ambulating without difficulty. No pain. Ureteral stents placed yesterday. Objective - Vital Signs/Intake and Output Vital Signs (last 24 hours): Temp Pulse Resp BP Pulse Ox 97.8 F 93 H 20 132/77 99 11/27/17 17:47 11/27/17 17:47 11/27/17 17:47 11/27/17 17:47 11/27/17 17:47 - Medications Medications: Current Medications Acetaminophen (Tylenol 325mg Tab) 650 mg PO Q4H PRN; Protocol PRN Reason: Pain, Mild (1-3) Last Admin: 11/27/17 12:34 Dose: 650 mg Al Hydrox/Mg Hydrox/Simethicone (Maalox Plus 30 Ml) 30 ml PO Q6H PRN PRN Reason: Diarrhea Last Admin: 11/27/17 16:03 Dose: 30 ml Artificial Tears (Refresh Opth Soln) 0.3 ml OU TID EZEQUIEL PRN Reason: Protocol Last Admin: 11/27/17 17:28 Dose: 0.3 ml Clonazepam (Klonopin) 1 mg PO 0800,1400,1800 EZEQUIEL PRN Reason: Protocol Last Admin: 11/27/17 17:28 Dose: 1 mg Lactobacillus Acidophilus (Bacid Acidophilus) 1 cap PO BID EZEQUIEL PRN Reason: Protocol Last Admin: 11/27/17 17:28 Dose: 1 cap Mirtazapine (Remeron) 30 mg PO HS EZEQUIEL PRN Reason: Protocol Last Admin: 11/27/17 20:59 Dose: 30 mg Oxycodone/Acetaminophen (Percocet 5/325 Mg Tab) 1 tab PO Q4H PRN PRN Reason: severe pain Stop: 11/30/17 00:34 Last Admin: 11/27/17 21:28 Dose: 1 tab Paroxetine HCl (Paxil) 30 mg PO HS EZEQUIEL PRN Reason: Protocol Last Admin: 11/27/17 20:59 Dose: 30 mg - Labs Labs: 11/26/17 12:10 11/26/17 12:10 - Constitutional Appears: Well - Head Exam Head Exam: ATRAUMATIC, NORMAL INSPECTION, NORMOCEPHALIC - Eye Exam Eye Exam: Normal appearance - ENT Exam ENT Exam: Mucous Membranes Moist - Neck Exam Neck Exam: Normal Inspection - Respiratory Exam Respiratory Exam: Clear to Ausculation Bilateral, NORMAL BREATHING PATTERN - Cardiovascular Exam Cardiovascular Exam: REGULAR RHYTHM, +S1, +S2 - GI/Abdominal Exam GI & Abdominal Exam: Soft, Normal Bowel Sounds - Extremities Exam Extremities Exam: Normal Inspection - Back Exam Back Exam: Full ROM, NORMAL INSPECTION - Neurological Exam Neurological Exam: Alert, Normal Gait, Oriented x3 - Psychiatric Exam Psychiatric exam: Anxious - Skin Skin Exam: Normal Color, Warm Assessment and Plan - Assessment and Plan (Free Text) Assessment: 1. Stage IV squamus cell cancer , Unknown primary. CT PET scan will be scheduled upon discharge from the hospital. I had a lenghty discussion with daughter telephonically. Discussed work up including PET scan, staging. I also discussed single agent palliative chemotherapy. She is in agreement. Discussed with patient also diagnosis, work up and treatment option of single agent chemotherapy. Immunostains will be sent for molecular profiling of cancer. 2. patient expressed lot of anxiety because of cancer diagnosis. I reassured her that our goal of treatment will be to maintain good quality life. Palliative chemotherapy improves quality of life and prolongs survival. She wants to be treated. Thank you Dr. Floyd for allowing us to participate in her care.
--- NOTE | 2017-11-27 23:17 | PN ---
DATE: FOLLOWUP NOTE SUBJECTIVE: Patient will follow at [facility] unit. Patient presented well. Patient reported that she is aware of the diagnosis of squamous carcinoma in the lymph node. Patient said that Dr. Hernandez talked to her lately and as per medical team, it can be cured. Patient seems to be optimistic about that news, but overall patient reported that she was feeling anxious. Patient reported that she accepted that news already and she will "leave everything to God because He is the boss." Patient reported that her daughter is very anxious about her. She reported that her son came and visit her. Overall, patient reported that her anxiety and depression is under control. Patient reported to have fair appetite and sleep. Patient expressed no new concerns. Patient overall was very appreciative, pleasant, and believes that this junior copywriter follow up on the patient. Vital signs seem to be stable. Medications reviewed. This junior copywriter does not feel that the patient has been on Abilify at the nighttime. Labs reviewed. Most recent was from yesterday. WBC cells 12.4. Microbiology reviewed. Reports reviewed. Patient has paraaortic lymph nodes status post biopsy, left renal hydronephrosis. MENTAL STATUS EXAMINATION: Patient appears to be alert and oriented, pleasant, cooperative. Good eye contact. Speech was normal rate, tone, quality and quantity. Mood described "I am in acceptance phase." Affect was reactive and mood congruent. Thought process seems to be coherent and goal directed. Thought content, patient denied visual, auditory, or tactile hallucinations. Denied paranoid ideation. Patient denied thoughts of harming herself or others. Denied intents or plan. Insight and judgment seems to be fair. Impulses are well controlled. IMPRESSION: As per history, patient has depression and anxiety, adjustment disorder, panic disorder, though which seems to be under control. Patient was newly diagnosed with squamous cell cancer status post biopsy of paraaortic lymph nodes. Patient has history of Clostridium difficile, hypertension, cataract. Please see medical team notes for more detailed information. PLAN: Continue current management, continue Klonopin, continue Remeron and continue Paxil. Patient tolerates those medications well. No side effects observed or reported. Emotional support and empathic listening provided to the patient. We will follow up on this patient every other day. Patient is in acceptance phase of grief. Should you have any questions, give me a call back. Thank you very much for letting me participate in care of your patient. Karo Smiley MD
[2017-11-28] MEDS: Lactobacillus Acidophilus 500 MU Cap PO SCH ×2 (10:09→18:50)
[2017-11-28] MEDS: Lubricant Eye Drops UD OU SCH ×3 (10:10→18:51)
--- NOTE | 2017-11-28 13:12 | PN ---
DATE: 11/28/2017 SUBJECTIVE: The patient has no complaint of any chest pain. No shortness of breath, no headaches. PHYSICAL EXAMINATION: VITAL SIGNS: Temperature is 97.8, pulse of 93, blood pressure 132/77, respirations 20. GENERAL: The patient is lying in bed, flat, comfortable. HEENT: No oral lesion. Anicteric sclerae. Moist mucosa. NECK: No JVD, adenopathy, or thyromegaly. CARDIOVASCULAR: S1 and S2, regular. No murmurs, rubs, or gallops. LUNGS: Clear to auscultation bilaterally. No wheeze, rales, or rhonchi. ABDOMEN: Bowel sounds are positive, soft, nontender and nondistended. EXTREMITIES: No cyanosis, clubbing or edema. ASSESSMENT: 1. Squamous cell carcinoma unknown primary. 2. Left renal hydronephrosis with stent placement. 3. Left-sided abdominal mass 3 x 2 cm with biopsy showing squamous cell carcinoma. 4. Paraaortic lymph nodes. 5. Hepatic cyst. 6. Anxiety/depression. 7. Osteoarthritis. 8. Dyslipidemia. 9. History of Clostridium difficile colitis. 10. TETRACYCLINE ALLERGY. 11. Urinary tract infection secondary to gram-positive cocci. PLAN: The patient is currently comfortable. She is on Klonopin. The patient has a C. diff. that was negative. She is on Paxil. She is going to continue with oxycodone for pain as needed. She is on Remeron. She is going to be on regular diet. Oleg Floyd MD
[2017-11-29] MEDS: Lactobacillus Acidophilus 500 MU Cap PO SCH ×2 (10:02→17:56)
[2017-11-29] MEDS: Lubricant Eye Drops UD OU SCH ×3 (10:03→17:57)
[2017-11-29] MEDS: Oxycodone/Acetaminophen 5/325 mg Tab PO PRN ×2 (14:27→22:55)
--- NOTE | 2017-11-29 16:15 | PN ---
DATE: SUBJECTIVE: The patient was followed up today. The patient presented in good spirit. At times, the patient reported that she feels anxious about her newly diagnosed cancer. The patient is aware of treatment options. The patient was seen by Dr. Hernandez. Overall, the patient presented very well. The patient reported that her anxiety and depression are under control. The patient reported that she tolerates medications well, no side effects observed or reported. Vital signs seem to be stable. The patient is socializing with others. No agitation, no aggression. The patient is very pleasant. The patient is on Klonopin 1 mg three times a day, Remeron 30 mg at the nighttime, Paxil 30 mg at the nighttime. There are no new labs. The patient actively participates in physical therapy. MENTAL STATUS EXAMINATION: The patient appears to be alert, oriented, pleasant, and cooperative. At times, anxious, which is expected. Mood described, "my anxiety and depression under control." Affect was reactive, mood congruent. Thought process, coherent and goal directed. Thought content, the patient denied visual, auditory, or tactile hallucinations. Denied paranoid ideation. The patient denied thoughts of harming herself or others. Denied intent or plan. Insight and judgment seem to be fair. Impulses are well controlled. IMPRESSION: As per history, major depressive disorder as well as generalized anxiety disorder as well as panic disorder, which seems to be under control. PLAN: Continue current management. Continue current medication. The patient seems to be comfortable. The patient denied thoughts of harming herself or others. Emotional support and empathic listening provided. If the patient will be improving, will sign off within next couple of days. Meanwhile, will be seen every other day. Thank you very much for letting me participate in care of your patient. Karo Smiley MD
--- NOTE | 2017-11-29 17:06 | CP.PCM.PN ---
Subjective - Date & Time of Evaluation Date of Evaluation: 11/29/17 Time of Evaluation: 11:45 - Subjective Subjective: Comfortable, no fevers. Objective - Vital Signs/Intake and Output Vital Signs (last 24 hours): Temp Pulse Resp BP Pulse Ox 97.6 F 81 18 107/65 99 11/29/17 10:00 11/29/17 10:00 11/29/17 10:00 11/29/17 10:00 11/29/17 10:00 - Medications Medications: Current Medications Acetaminophen (Tylenol 325mg Tab) 650 mg PO Q4H PRN; Protocol PRN Reason: Pain, Mild (1-3) Last Admin: 11/29/17 10:06 Dose: 650 mg Al Hydrox/Mg Hydrox/Simethicone (Maalox Plus 30 Ml) 30 ml PO Q6H PRN PRN Reason: Diarrhea Last Admin: 11/27/17 16:03 Dose: 30 ml Artificial Tears (Refresh Opth Soln) 0.3 ml OU TID EZEQUIEL PRN Reason: Protocol Last Admin: 11/29/17 13:09 Dose: 0.3 ml Clonazepam (Klonopin) 1 mg PO 0800,1400,1800 EZEQUIEL PRN Reason: Protocol Last Admin: 11/29/17 13:09 Dose: 1 mg Lactobacillus Acidophilus (Bacid Acidophilus) 1 cap PO BID EZEQUIEL PRN Reason: Protocol Last Admin: 11/29/17 10:02 Dose: 1 cap Mirtazapine (Remeron) 30 mg PO HS EZEQUIEL PRN Reason: Protocol Last Admin: 11/28/17 21:07 Dose: 30 mg Oxycodone/Acetaminophen (Percocet 5/325 Mg Tab) 1 tab PO Q4H PRN PRN Reason: severe pain Stop: 11/30/17 00:34 Last Admin: 11/29/17 14:27 Dose: 1 tab Paroxetine HCl (Paxil) 30 mg PO HS EZEQUIEL PRN Reason: Protocol Last Admin: 11/28/17 21:04 Dose: 30 mg - Labs Labs: 11/26/17 12:10 11/26/17 12:10 - Constitutional Appears: Chronically Ill - Head Exam Head Exam: NORMAL INSPECTION - ENT Exam ENT Exam: Mucous Membranes Moist - Neck Exam Neck Exam: absent: Meningismus - Respiratory Exam Respiratory Exam: Decreased Breath Sounds - Cardiovascular Exam Cardiovascular Exam: +S1, +S2 - GI/Abdominal Exam GI & Abdominal Exam: Soft. absent: Tenderness Assessment and Plan - Assessment and Plan (Free Text) Plan: Assessment S/P sepsis due to UTI with Klebsiella perirenal mass ,etiology to be determined history of sepsis due to severe C. diff. colitis history of sepsis due to left lower lobe community-acquired pneumonia R/O UTI from Klebsiella depression cataracts right ear deafness history of C. diff. infection irritable bowel syndrome S/P appendectomy Plan S/P Gentamicin - will repeat urine cx and continue to monitor off antibiotics
--- NOTE | 2017-11-30 08:13 | PN ---
DATE: 11/29/2017 SUBJECTIVE: This patient was seen and evaluated earlier today. The patient is comfortable, tolerating the diet. PHYSICAL EXAMINATION: VITAL SIGNS: Stable. Blood pressure 132/72, temperature is 97.8, pulse 80, and respirations 18. HEENT: Atraumatic and anicteric. NECK: Supple. HEART: S1 and S2 heard. LUNGS: Bilateral air entry present. ABDOMEN: Soft. No tenderness. IMPRESSION: Status post lymph node biopsy, core biopsy for metastatic squamous cell carcinoma. This is an 87-year-old patient, who has pneumonia. The patient has history of sepsis secondary to Klebsiella urinary tract infection, peritoneal mass, status post biopsy shows metastatic squamous cell carcinoma, history of Clostridium difficile colitis, pneumonia. RECOMMENDATIONS: The patient is on gentamicin. We will continue the antibiotics as per ID. Awaiting for repeat cultures. Thank you very much for allowing me to participate in the care of the patient. Rai Gutierrez MD MTDD
[2017-11-30] MEDS: Lactobacillus Acidophilus 500 MU Cap PO SCH ×2 (10:07→17:16)
[2017-11-30] MEDS: Lubricant Eye Drops UD OU SCH ×3 (10:07→17:17)
--- NOTE | 2017-11-30 12:19 | CP.PCM.PN ---
Subjective - Date & Time of Evaluation Date of Evaluation: 11/30/17 Time of Evaluation: 11:30 - Subjective Subjective: Comfortable in bed, afebrile, not in distress. Objective - Vital Signs/Intake and Output Vital Signs (last 24 hours): Temp Pulse Resp BP Pulse Ox 98.3 F 80 18 112/69 100 11/29/17 18:01 11/29/17 18:01 11/29/17 18:01 11/29/17 18:01 11/29/17 18:01 - Medications Medications: Current Medications Acetaminophen (Tylenol 325mg Tab) 650 mg PO Q4H PRN; Protocol PRN Reason: Pain, Mild (1-3) Last Admin: 11/29/17 10:06 Dose: 650 mg Al Hydrox/Mg Hydrox/Simethicone (Maalox Plus 30 Ml) 30 ml PO Q6H PRN PRN Reason: Diarrhea Last Admin: 11/27/17 16:03 Dose: 30 ml Artificial Tears (Refresh Opth Soln) 0.3 ml OU TID EZEQUIEL PRN Reason: Protocol Last Admin: 11/29/17 17:57 Dose: 0.3 ml Clonazepam (Klonopin) 1 mg PO 0800,1400,1800 EZEQUIEL PRN Reason: Protocol Last Admin: 11/30/17 08:03 Dose: 1 mg Lactobacillus Acidophilus (Bacid Acidophilus) 1 cap PO BID EZEQUIEL PRN Reason: Protocol Last Admin: 11/29/17 17:56 Dose: 1 cap Mirtazapine (Remeron) 30 mg PO HS EZEQUIEL PRN Reason: Protocol Last Admin: 11/29/17 21:14 Dose: 30 mg Paroxetine HCl (Paxil) 30 mg PO HS EZEQUIEL PRN Reason: Protocol Last Admin: 11/29/17 21:14 Dose: 30 mg - Labs Labs: 11/26/17 12:10 11/26/17 12:10 - Constitutional Appears: Chronically Ill - Head Exam Head Exam: NORMAL INSPECTION - Respiratory Exam Respiratory Exam: Decreased Breath Sounds - Cardiovascular Exam Cardiovascular Exam: +S1, +S2 - GI/Abdominal Exam GI & Abdominal Exam: Soft. absent: Tenderness Assessment and Plan - Assessment and Plan (Free Text) Plan: Assessment S/P sepsis due to UTI with Klebsiella perirenal mass ,etiology to be determined history of sepsis due to severe C. diff. colitis history of sepsis due to left lower lobe community-acquired pneumonia R/O UTI from Klebsiella depression cataracts right ear deafness history of C. diff. infection irritable bowel syndrome S/P appendectomy Plan S/P Gentamicin - follow up repeat urine cx and continue to monitor off antibiotics
[2017-11-30 16:24] VITALS: O2SAT 95
--- NOTE | 2017-11-30 23:58 | PN ---
DATE: 11/29/2017 SUBJECTIVE: She is comfortable in bed, in no acute distress. She is very anxious about the diagnosis of cancer. She is saying she is not able to sleep in the night. She is ambulating with PT. Oral intake is good. No abdominal pain. Correction to the previous note date 11/27/2017; ureteral stent were not placed because of technical difficulty as informed by Dr. Sorto. No hematuria. REVIEW OF SYSTEMS: As per HPI. Rest of 12-point review of systems reviewed negative. PHYSICAL EXAMINATION: GENERAL: Comfortable in bed, in no acute distress. VITAL SIGNS: Temperature 98.7, heart rate is 93 per minute, blood pressure 132/77, pulse ox is 95% on room air. HEENT: Pallor positive. NECK: No lymphadenopathy. CHEST: Air entry present and equal bilaterally. No added sounds. CARDIOVASCULAR: S1 and S2 normal. No murmur. No gallop. ABDOMEN: Soft, nontender. No hepatosplenomegaly. EXTREMITIES: No edema. LABORATORY DATA: White count 12.4, hemoglobin 11.3, hematocrit 34.6, platelet 277. Sodium 136, potassium 4.3, BUN 16, creatinine 0.9, and glucose 102. MEDICATIONS: Reviewed. ASSESSMENT AND PLAN: 1. Squamous cell cancer of unknown primary, stage IV. 2. Intra-abdominal mass on the left side. CT PET is scheduled for next week, on 12/07/2017 at 10:30 a.m. Daughter informed of the PET scan. 3. Anxiety. She is on Klonopin 1 mg p.o. three times a day and Paxil - we will continue that, Remeron. 4. Renal function is stable. Alma Hernandez MD
--- NOTE | 2017-12-01 00:36 | DS ---
DATE OF DISCHARGE: 11/30/2017 DISCHARGE DIAGNOSES: 1. Stage IV squamous cell cancer. 2. Left-sided intra-abdominal mass. 3. Anxiety. 4. Left-sided renal hydronephrosis. 5. Osteoarthritis. 6. Urinary tract infection with gram positive cocci. HOSPITAL COURSE: Patient was treated with IV antibiotics for UTI. Urology, Dr. Sorto evaluated the patient. Left urethral stent was tried, but could not be placed due to compression from the mass on the left side of the abdomen measuring 3 cm x 2 cm. Biopsy of the mass was done during hospitalization, which showed squamous cell cancer. She was treated for anxiety and depression with anti-depressive medications. She received physical therapy for one week in transitional care unit. She is being discharged home in stable condition. A PET scan is scheduled for 12/07 at 10:30 a.m. Daughter was informed of the PET scan. The patient was also informed of the PET scan appointment next week. PHYSICAL EXAMINATION: On discharge, GENERAL: Comfortable in bed, in no acute distress. VITAL SIGNS: Temperature 98.7, heart rate 90 per minute, blood pressure 120/70, respiratory rate 18 per minute. HEENT: Normal. NECK: No lymphadenopathy. CHEST: Air entry present and equal bilaterally. No added sounds. CARDIOVASCULAR: S1 and S2 normal. No murmur. No gallop. ABDOMEN: Soft, nontender. No hepatosplenomegaly. EXTREMITIES: No edema. GLAUCOMA SPECIALIST: Alert, oriented x3. No focal sensory motor deficit. CONDITION ON DISCHARGE: Stable. DISPOSITION: Discharged home. FOLLOWUP: Follow up for the PET scan in Radiology at [facility], for PET scan on 12/07 at 10:30 a.m. Follow up with Dr. Hernandez in one week. Follow up with Dr. Floyd in one week. All prescriptions given to the patient including Klonopin 1 mg three times a day for anxiety. Continue all other home meds. DIET: Regular diet. Time spent in preparing discharge and coordinating care, 55 minutes. Alma Hernandez MD
[2017-12-01 08:55] VITALS: BP 106/60; PULSE 78; RESP 20; TEMP 98.9
[2017-12-01] MEDS: Lactobacillus Acidophilus 500 MU Cap PO SCH (09:41)
[2017-12-01] MEDS: Lubricant Eye Drops UD OU SCH (09:43)
--- NOTE | 2017-12-01 13:48 | PN ---
DATE: 12/01/2017 SUBJECTIVE: The patient is seen early this morning in 320 in transitional care. No fevers. No chills. PHYSICAL EXAMINATION: VITAL SIGNS: Temperature is 98, blood pressure is 106/60, respiratory rate of 20, heart rate of 78. HEENT: Examination of HEENT is unremarkable. NECK: Supple. LUNGS: Have decreased breath sounds. HEART: Normal S1 and S2. ABDOMEN: Soft, nontender. LABORATORY EXAMINATION: Reveals a white count of 4400, hemoglobin of 11, BUN of 16, creatinine of .9. Microbiology is noted. ASSESSMENT AND PLAN: An 87-year-old female, seen earlier this morning in transitional care. She is awake and alert, doing well in room 320 and who is status post sepsis with a urinary tract infection with Klebsiella and perirenal mass and biopsy with history of severe pseudomembranous colitis and cataract and irritable bowel syndrome, appendectomy. Currently, off of antibiotics and the patient did have a pathology, which was reviewed and metastatic squamous cell carcinoma from 11/22/2017 and the patient for followup with Dr. Hernandez. We will follow with you. Sebastian Álvarez MD
--- NOTE | 2017-12-01 21:54 | CON ---
DATE: HISTORY OF PRESENT ILLNESS: The patient is an 87-year-old white female with history of anxiety and depression, Psychiatry is seeing in the Transitional Care Unit as she undergoes physical therapy. This provider recent notes regarding the patient's progress and the patient appears to be doing better and anxiety is improving as well as her sleep with current medications. The patient also seems to be handling the diagnosis of cancer relatively well. As mentioned, I met with the patient at bedside and she continues to report improvement in anxiety and mood and she feels that this medication combination is very beneficial for her. She is alert and oriented to month, year, location, and circumstances. She is coherent. Responses are consistent. She denies having any wishes or suicidal thoughts. She denies any suicidal thoughts and generally appears to be a fairly reliable historian. There have been no issues she has been cooperative with staff members. She is familiar with the diagnosis and the options given to her regarding cancer treatment and she is hopeful about the future. Vital signs and labs were reviewed. Relative psychiatric medications include Klonopin 1 mg p.o. 8:00 a.m., 2:00 p.m., 6:00 p.m.; Remeron 30 mg at bedtime; and Paxil 30 mg at bedtime. IMPRESSION: Major depressive disorder by history, improving and generalized anxiety disorder as well as panic disorder, improving. PLAN: We will continue the current management and medication. The patient is improving and shows stable improvement. The patient does not appear to be a danger to herself or others and feels as current medication combination is beneficial. Psychiatry will sign off at this time. Please re-consult p.r.n. if there are any acute changes in her presentation. Jaylan Ness MD
--- NOTE | 2017-12-01 23:41 | PN ---
DATE: SUBJECTIVE: The patient is an 87 years old, who was admitted on because of left flank pain. She was found to have left-sided abdominal mass anterior to the left psoas muscle, was also found to have left-sided hydronephrosis. Patient was treated on acute care floor with IV antibiotics and had a CT-guided biopsy, was found to have metastatic squamous cell carcinoma. Patient received rehab and being discharged today. PHYSICAL EXAMINATION: GENERAL: Patient is awake, alert, oriented, communicative. VITAL SIGNS: Patient is afebrile, pulse 87, respirations 18, blood pressure 108/68. LUNGS: Bilateral good airflow. No rhonchi or crackles. HEART: S1, S2 audible. ABDOMEN: Soft, nontender. No rebound. No guarding. NEUROLOGIC: Patient is awake and alert, able to communicate. ASSESSMENT: 1. Metastatic squamous cell carcinoma. 2. Left intra-abdominal mass. 3. Urinary tract infection with gram-positive cocci. 4. Left-sided hydronephrosis. 5. Generalized osteoarthritis. 6. Anxiety disorder. 7. History of Clostridium difficile. PLAN: Patient is being discharged to home. She will resume her medications that will include Klonopin 1 mg three times a day, Paxil 30 mg daily, and Remeron 30 mg at bedtime. She will follow up with primary care physician. Carla Magana MD
== END 2017-12-01 12:18 | disposition home or self-care (01) | DRG 693 ==
LOC: TRCU 18:26
PROVIDERS: ADMIT Internal Medicine Nephrology; ATTEND Internal Medicine Nephrology
PROC: F07Z9FZ Gait Training/Functional Ambulation Treatment using Assistive, Adaptive, Supportive or Protective Equipment (ICD-10-PCS; principal; 2017-11-24)
PROC: F07M6ZZ Therapeutic Exercise Treatment of Musculoskeletal System - Whole Body (ICD-10-PCS; 2017-11-24)
PROC: F08Z2ZZ Grooming/Personal Hygiene Treatment (ICD-10-PCS; 2017-11-24)
PROC: F08Z1ZZ Dressing Techniques Treatment (ICD-10-PCS; 2017-11-24)
PROC: F08Z1ZZ Dressing Techniques Treatment (ICD-10-PCS; 2017-11-24)
DX: N13.30 Unspecified hydronephrosis (principal); A41.59 Other Gram-negative sepsis; J18.9 Pneumonia, unspecified organism; C77.9 Secondary and unspecified malignant neoplasm of lymph node, unspecified; B96.1 Klebsiella pneumoniae [K. pneumoniae] as the cause of diseases classified elsewhere; C80.1 Malignant (primary) neoplasm, unspecified; E78.00 Pure hypercholesterolemia, unspecified; E78.5 Hyperlipidemia, unspecified; F32.89 Other specified depressive episodes; F41.0 Panic disorder [episodic paroxysmal anxiety]; F41.1 Generalized anxiety disorder; H26.9 Unspecified cataract; H91.91 Unspecified hearing loss, right ear; I10 Essential (primary) hypertension; K52.9 Noninfective gastroenteritis and colitis, unspecified; K58.9 Irritable bowel syndrome, unspecified; K76.89 Other specified diseases of liver; M15.9 Polyosteoarthritis, unspecified; N28.89 Other specified disorders of kidney and ureter; N39.0 Urinary tract infection, site not specified; Z79.899 Other long term (current) drug therapy; Z86.19 Personal history of other infectious and parasitic diseases; Z87.440 Personal history of urinary (tract) infections; Z87.891 Personal history of nicotine dependence; Z88.1 Allergy status to other antibiotic agents; Z90.49 Acquired absence of other specified parts of digestive tract

== ENCOUNTER 2017-11-26 07:44 | Day surgery (SDC) | payer MEDICARE, OTHER ==
[2017-11-26 07:27] VITALS: BMI 19.3
[2017-11-26] MEDS ORDERED: Iohexol 240 (50 ml) ONE (08:20)
[2017-11-26] MEDS ORDERED: Lidocaine 2% Jelly (Uro-Jet) ONE (08:20)
[2017-11-26] MEDS ORDERED: cefTRIAXone (Rocephin) 1 gm Inj ONE (08:20)
[2017-11-26] MEDS ORDERED: Propofol 10 mg/ml Inj (20 ML) ONE (08:36)
[2017-11-26] MEDS ORDERED: Etomidate 20 mg/10ml Inj IV ONE (08:36)
[2017-11-26] MEDS ORDERED: Lidocaine 1% Inj (20ml) ONE (08:37)
[2017-11-26 10:44] VITALS: RESP 18; TEMP 98
[2017-11-26 10:53] VITALS: BP 125/65; PULSE 91; O2SAT 97
--- NOTE | 2017-11-26 12:45 | RAD ---
PROCEDURE: Retrograde pyelogram HISTORY: STENT PLACEMENT COMPARISON: TECHNIQUE: Fluoroscopy was provided in the operating room. 157 seconds of fluoro time. Three images submitted FINDINGS: There is narrowing of the proximal ureter. The collecting system is incompletely opacified. Upper pole calices are dilated. There is a small amount of extravasation around the proximal ureter IMPRESSION: As above
--- NOTE | 2017-11-26 18:41 | OP ---
PROCEDURE DATE: 11/26/2017 PREOPERATIVE DIAGNOSIS: Left hydronephrosis. POSTOPERATIVE DIAGNOSES: Left hydronephrosis plus bladder lesions. PROCEDURES: Cystoscopy, left retrograde pyelogram with attempted insertion of left stent, bladder biopsies and fulguration. SURGEON: Tru Sorto M.D. ANESTHESIA: MAC. SPECIMENS: Bladder biopsies sent to pathology. DRAINS: There were none. COMPLICATIONS: There were none. OPERATIVE FINDINGS: After informed consent was obtained, the patient was taken to the operating room, placed on operating table. Anesthesia was administered. The patient was placed in dorsolithotomy position and prepped and draped in usual sterile fashion. A 22-Georgian cystoscope was passed through the patient's urethra into the bladder and a full survey inspection was performed. There were no stones or foreign bodies noted. There were multiple raised yellowish and flesh-colored lesions throughout the bladder, mostly on the trigone and bladder neck region. 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 Both ureteral orifices were visualized. The right ureteral orifice appeared within normal limits. The left orifice was normal. It was just proximal to an area of raised lesions but it did not appear involved with the lesions. No other papillary suspicious bladder tumors were noted. At this point, a cone-tip catheter was introduced through the cystoscope and guided into the left ureteral orifice. The left retrograde pyelogram was then performed by instilling contrast into the ureter during real-time fluoroscopy. There was a narrowed area in the left upper ureter. A wisp of contrast was able to be passed beyond this point and there was noted to be marked hydronephrosis of the kidney. The wisp of contrast appeared to be from external compression. There was no obvious filling defect inside the ureter noted. At this point, the cone-tip catheter was removed. A Alfred catheter was introduced and passed into the orifice. The Alfred catheter was passed up the ureter to an area below the obstruction. The sensor wire was then obtained and it was passed through the Alfred catheter. The sensor wire was noted to coil at the area of obstruction and multiple attempts were made, however, the wire was unable to be passed. The sensor wire was then removed. A 0.35 angled tip Glidewire was then obtained. Multiple attempts again were made to pass the angled tip Glidewire. The Glidewire was able to be passed beyond the point of obstruction; however, was not able to be advanced into the renal pelvis or kidney. Attempts were made to pass the Alfred catheter over the Glidewire beyond this point; however, this was unsuccessful. After multiple attempts were made to pass the wire which were unsuccessful, the procedure was abandoned. The patient's biopsy of the lymph node causing the obstruction was positive for squamous cell carcinoma and a stent would not help with a high-grade obstruction anyway. Therefore, further attempts were abandoned. The Glidewire and ureteral catheter were then withdrawn. At this point, a cold cup biopsy forceps was passed. The lesions just distal to the left ureteral orifice were excised and sent to pathology using the cold cup forceps. One of the other ragged areas on the trigone were also biopsied and sent to pathology. A Bugbee electrode was then passed and the biopsy sites were cauterized. There was complete hemostasis. Final inspection was then made. Both orifices remained intact. There was no bleeding from the biopsy sites and at this point, the procedure was completed. The bladder was drained. The cystoscope was removed. Pelvic exam was performed. The patient's cervix felt grossly normal. There was no large vaginal mass noted or any to count for her squamous cell carcinoma. The urethra appeared within normal limits. The urethral meatus was normal. At this point, the procedure was completed. The bladder had been drained. The cystoscope was removed. The patient was returned to supine position and taken to the recovery room awake and in stable condition. Plan will be to place a percutaneous nephrostomy on the left. The patient requires further workup for finding the primary site of the squamous cell carcinoma. Needs a gynecologic evaluation and possibly head and neck evaluation as well. Tru Sorto MD
== END 2017-11-26 11:00 ==
LOC: OR 07:44 → SDS 07:44
PROVIDERS: ATTEND Urology
DX: N30.80 Other cystitis without hematuria (principal); N13.30 Unspecified hydronephrosis
CPT/HCPCS: 52204; 74420; 88305; C1758 ×2; C1769 ×2; J2704; J7120; Q9966

== ENCOUNTER 2017-12-12 07:03 | Day surgery (SDC) | payer MEDICARE, OTHER ==
[2017-12-12 07:43] VITALS: BMI 20.7
[2017-12-12 07:54] LABS: BASO # 0.06 K/mm3 (0.0-2.0); BASO % 0.6 % (0.0-3.0); EOS # 0.2 (0.0-0.7); EOS % 1.6 % (1.5-5.0); GRAN # 5.33 (1.4-6.5); GRAN % 52.8 % (50.0-68.0); HEMOGLOBIN 11.6 g/dL (12.0-16.0); LYMPH # 3.6 (1.2-3.4); LYMPH % 35.9 % (22.0-35.0); MEAN CELL VOLUME 93.3 fl (80.0-105.0); MEAN CORPUSCULAR HEMOGLOBIN 29.9 pg (25.0-35.0); MEAN PLATELET VOLUME 8.7 fl (7.0-11.0); MONO # 0.9 (0.1-0.6); MONO % 9.1 % (1.0-6.0); RBC 3.88 10^6/uL (3.5-6.1); RED CELL DISTRIBUTION WIDTH 15.2 % (11.5-14.5); WHITE BLOOD COUNT 10.1 10^3/ul (4.5-11.0)
[2017-12-12 08:04] LABS: CALCIUM 10.1 mg/dL (8.4-10.5)
[2017-12-12 08:12] LABS: INR 1.01 (0.93-1.08); PARTIAL THROMBOPLASTIN TIME 28.8 Seconds (25.1-36.5); PROTHROMBIN TIME 11.6 SECONDS (9.4-12.5)
[2017-12-12] MEDS ORDERED: Lidocaine 2% Inj (20ml) ONE (08:39)
[2017-12-12] MEDS ORDERED: HEPARIN SODIUM/NS 1,000 ML IV ONE (08:40)
[2017-12-12] MEDS ORDERED: Midazolam 2 MG/2 ML VIAL ONE ×2 (09:01→09:29)
[2017-12-12] MEDS ORDERED: Oxycodone/Acetaminophen 5/325 mg Tab PO PRN (10:09)
[2017-12-12] MEDS ORDERED: Sodium Chloride 0.45% 1,000 ML IV SCH (10:15)
[2017-12-12 10:43] VITALS: BP 174/90; PULSE 81; RESP 20; TEMP 97.6; O2SAT 97
--- NOTE | 2017-12-12 16:17 | VASCULAR ---
PROCEDURE: Ultrasound and fluoroscopic right internal jugular venous access port. CLINICAL HISTORY: Metastatic squamous cell carcinoma. Venous port for chemotherapy. PHYSICIAN(S): Delio Epstein M.D. TECHNIQUE: The relative risks and indications of the procedure were explained to the patient and consent obtained. The patient was placed supine on the arteriogram table and the right neck and chest prepped and draped in the usual sterile fashion. Conscious sedation monitoring was provided throughout the procedure by a nurse. Antibiotics were given prior to the procedure. Under direct ultrasound guidance, the right internal jugular vein was punctured with a micro-puncture set. A 0.035 angled Glidewire was advanced into the IVC. A 4 cm incision was made below the right clavicle and the pocket blunted dissected. A 8 Icelandic single-lumen catheter, 21 cm long, was advanced to the SVC/RA junction. The catheter was trimmed and attached to the port. The port aspirates and injects easily. The port was placed in the pocket and closed in 2 layers. The patient tolerated the procedure well. IMPRESSION: Ultrasound and fluoroscopically placed right internal jugular venous access port.
== END 2017-12-12 12:00 | disposition home or self-care (01) ==
LOC: SDSVAS 07:03
PROVIDERS: ATTEND Radiology Vascular & Interventional Radiology
DX: C76.2 Malignant neoplasm of abdomen (principal); N13.30 Unspecified hydronephrosis
CPT/HCPCS: 36415; 36561; 76937; 77001; 80048; 85025; 85610; 85730; 99152; C1769; C1788; C1887; J0690; J1644; J2250; J2405; J3010; J7030

== ENCOUNTER 2017-12-24 11:44 | Inpatient (IN) | payer MEDICARE, OTHER ==
[2017-12-24 11:45] VITALS: BMI 20.7
--- NOTE | 2017-12-24 12:08 | ED PDOC ---
Arrival/HPI - General Time Seen by Provider: 12/24/17 11:59 Historian: Patient (x) - History of Present Illness Narrative History of Present Illness (Text): 12/24/17 12:08 Ary Hill is an 87 year old female, whose past medical history includes C.Diff, pseudomemrnous colitis, diveriticulitis s/p sigmoidectomy > 10yrs ago, and a malignant tumor to left kidney on chemotherapy, who presents to the emergency department complaining of abdominal pain with associated nasuea and vomiting today. Patient's family notes that patient missed chemotherapy today to come to the emergency department for symptoms. No other complaints offered at this time. PMD: Dr. 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) - Renal Hx Renal Disorder: No - Endocrine/Metabolic Hx Endocrine Disorders: No - Hematological/Oncological Hx Blood Transfusions: No - Integumentary Hx Dermatological Disorder: Yes - Musculoskeletal/Rheumatological Hx Musculoskeletal Disorders: Yes - Gastrointestinal Hx Gastrointestinal Disorders: Yes - Genitourinary/Gynecological Hx Genitourinary Disorders: Yes Hx Reproductive Disorders: Yes - Psychiatric Hx Emotional Abuse: No Hx Physical Abuse: No Hx Substance Use: No - Past Surgical History Past Surgical History: Non-Contributing - Surgical History Hx Appendectomy: Yes - Anesthesia Hx Anesthesia Reactions: No Hx Malignant Hyperthermia: No - Suicidal Assessment Feels Threatened In Home Enviroment: No Family/Social History - Physician Review Nursing Documentation Reviewed: Yes Family/Social History: No Known Family HX Smoking Status: Former Smoker Hx Alcohol Use: No Hx Substance Use: No Hx Substance Use Treatment: No Allergies/Home Meds Allergies/Adverse Reactions: Allergies tetracycline Allergy (Severe, Verified 12/24/17 12:24) ANAPHYLAXIS Home Medications: Home Meds Medication Instructions Recorded Confirmed Unobtainable 12/24/17 12/24/17 Review of Systems - Physician Review All systems were reviewed & negative as marked: Yes - Review of Systems Constitutional: absent: Fevers, Night Sweats Eyes: absent: Vision Changes ENT: absent: Hearing Changes Respiratory: absent: SOB Cardiovascular: absent: Chest Pain Gastrointestinal: Abdominal Pain, Nausea, Vomiting Genitourinary Female: absent: Dysuria Musculoskeletal: absent: Arthralgias Skin: absent: Rash, Pruritis Neurological: absent: Headache Endocrine: absent: Diaphoresis Hemo/Lymphatic: absent: Adenopathy Psychiatric: absent: Anxiety, Depression Physical Exam - Physical Exam Narrative Physical Exam (Text): Constitutional: No acute distress. Head: Normocephalic. Atraumatic. Eyes: PERRL. ENT: Moist mucous membranes. Neck: Supple. Cardiovascular: Regular rate. Chest: No tenderness. Port on right sided chest for chemotherapy. Respiratory: Clear to auscultation bilaterally. GI: Diffuse abdominal tenderness, worse to LLQ. Back: No CVA tenderness. Musculoskeletal: No tenderness or swelling of extremities. Skin: No rash. Neurologic: Alert, no focal deficit. Vital Signs Reviewed: Yes Vital Signs Temp Pulse Resp BP Pulse Ox 12/24/17 12:00 97.8 F 105 H 18 146/71 97 Medical Decision Making ED Course and Treatment: 12/24/17 12:14 Impression: 87 year old female complaining of abdominal pain with associated nausea and vomiting today. Differential Diagnosis included but are not limited to: Plan: -- Reassess and disposition Prior Visits: Notes and results from previous visits were reviewed. Patient last seen in the ED on 11/20/17 for abdominal pain. Patient was admitted to hospitalist care for further evaluation. Progress Notes: 12/24/17 15:00 Accession No. : [id number] Patient Name / ID : TOM PERRY / [id number] Exam Date : 12/24/2017 13:51:44 ( Approved ) Study Comment : Sex / Age : F / 87Y Creator : Shaunna Luna MD Dictator : Shaunna Luna MD Mineral Resources Inspector : Packing Floor Worker : Shaunna Luna MD Approver2 : Report Date : 12/24/2017 14:42:13 My Comment : PROCEDURE: CT Abdomen and Pelvis with contrast HISTORY: Abdominal pain COMPARISON: 11/20/2017 TECHNIQUE: CT scan of the abdomen and pelvis was performed after administration of intravenous contrast. Oral contrast was not administered. Coronal and sagittal reformatted images were obtained. Contrast dose: 100 mL Visipaque 350 Radiation dose: Total exam DLP = 193.69 mGy-cm. This CT exam was performed using one or more of the following dose reduction techniques: Automated exposure control, adjustment of the mA and/or kV according to patient size, and/or use of iterative reconstruction technique. FINDINGS: LOWER THORAX: The lung bases are clear. LIVER: The liver is normal in size and there is homogeneous enhancement. There is redemonstration of stable hyperdense lesions, the largest in the left hepatic lobe measures 2.0 x 2.1 cm. No intrahepatic biliary ductal dilatation GALLBLADDER AND BILE DUCTS: There are no calcified gallstones. PANCREAS: There is diffuse atrophy of the pancreas no focal mass. The pancreatic duct is prominent and measures 3 mm. SPLEEN: Spleen is normal in size and appearance. ADRENALS: No discrete nodule. Mild thickening of the left adrenal gland. KIDNEYS AND URETERS: Both kidneys are normal in size with homogeneous enhancement. There is cortical atrophy in the left kidney. There are simple cysts in both kidneys. There is a stable hyperdense cyst in the lower pole of the left kidney likely a hemorrhagic cyst. This persistent moderate hydronephrosis in the left kidney with moderate dilatation of the proximal ureteral and stable appearance of 2.7 x 2.0 cm enhancing nodular mass anterior to the left psoas obstructing the ureteral. . VASCULATURE: Advanced atherosclerotic aortoiliac calcifications. No aortic aneurysm. BOWEL: The small bowel loops are normal in caliber. There is moderate amount of stool in the ascending and transverse colon. There is diffuse circumferential mural thickening in the descending colon, sigmoid colon and rectum with mild pericolonic inflammatory changes. Colonic diverticular are again identified APPENDIX: No inflammatory changes in the right lower quadrant. PERITONEUM: No free fluid. No free air. LYMPH NODES: No enlarged lymph nodes. BLADDER: Unremarkable. REPRODUCTIVE: Age appropriate atrophy of the uterus. There is a persistent 3.8 x 3.6 cm simple cyst in the left ovary. BONES: No acute fracture. There is severe levoscoliosis in the lumbar spine and advanced multilevel degenerative changes. OTHER FINDINGS: There is a small sliding hiatal hernia. There is a small right inguinal hernia containing nonobstructed small bowel loops with IMPRESSION: 1. Diffuse circumferential mural thickening of the descending and sigmoid colon and rectum with pericolonic inflammatory changes most compatible with nonspecific infectious/ inflammatory colitis. 2. Persistent moderate hydronephrosis and moderate dilatation of the left proximal ureteral with a stable 2.7 x 2.0 cm enhancing mass obstructing the proximal ureteral which may represent lymph node or nonspecific malignancy. 3. Stable additional chronic findings as described above including liver lesions , the largest measures 2.1 cm. Initiated on Ceftriaxone and Flagyl, blood cultures drawn. Dr. Floyd accepts patient to his service. Dr. Hernandez on consultation. - Lab Interpretations Lab Results: 12/24/17 12:50 12/24/17 12:50 Lab Results 12/24/17 13:45: Urine Color Dark yellow, Urine Appearance Clear, Urine pH 5.5, Ur Specific Billings >= 1.030, Urine Protein 100 H, Urine Glucose (UA) Negative, Urine Ketones Trace H, Urine Blood Large H, Urine Nitrate Positive H, Urine Bilirubin Moderate H, Urine Urobilinogen 1.0 H, Ur Leukocyte Esterase Trace H, Urine RBC 20 - 25, Urine WBC 5 - 10, Ur Epithelial Cells 4 - 5, Amorphous Sediment Few, Urine Bacteria Many, Coarse Granular Casts Trace H, Urine Other Uyeast 12/24/17 12:50: Sodium 137, Potassium 3.7, Chloride 98, Carbon Dioxide 26, Anion Gap 16, BUN 19, Creatinine 1.1, Est GFR ( Amer) 57, Est GFR (Non- Af Amer) 47, Random Glucose 116 H, Calcium 9.5, Total Bilirubin 0.3, AST 23, ALT 15, Alkaline Phosphatase 103, Total Protein 7.1, Albumin 3.8, Globulin 3.4, Albumin/Globulin Ratio 1.1, Lipase 27 12/24/17 12:50: WBC 11.1 H, RBC 3.61, Hgb 10.7 L, Hct 33.0 L, MCV 91.4, MCH 29.6 , MCHC 32.4, RDW 14.6 H, Plt Count 239, MPV 8.7, Gran % 78.1 H, Lymph % (Auto) 13.7 L, Ripley % (Auto) 7.7 H, Eos % (Auto) 0.3 L, Baso % (Auto) 0.2, Gran # 8.69 H, Lymph # (Auto) 1.5, Ripley # (Auto) 0.9 H, Eos # (Auto) 0.0, Baso # (Auto) 0.02 I have reviewed the lab results: Yes - RAD Interpretation Radiology Orders: 12/24/17 12:41 ABD & PELVIS IV CONTRAST ONLY [CT] Stat - Medication Orders Current Medication Orders: Discontinued Medications Sodium Chloride (Sodium Chloride 0.9%) 1,000 mls @ 999 mls/hr IV .Q1H1M STA Stop: 12/24/17 13:40 Last Admin: 12/24/17 13:38 Dose: 999 mls/hr eMAR Start Stop Document 12/24/17 13:38 OCS (Rec: 12/24/17 13:39 OCS [id number]) Intravenous Solution Start Date 12/24/17 Start Time 13:39 End Date 12/24/17 End time 14:40 Total Infusion Time 61 Morphine Sulfate (Morphine) 4 mg IVP STAT STA Stop: 12/24/17 12:42 Last Admin: 12/24/17 13:36 Dose: 4 mg MAR Pain Assessment Document 12/24/17 13:36 OCS (Rec: 12/24/17 13:[id number][address] Pain Reassessment Is this a pain reassessment? Yes Sleep Is patient sleeping during reassessment? No Presence of Pain Presence of Pain Yes Pain Scale Used Pain Scale Used Numeric Location Pain Location Body Site Abdomen Description Description Constant Intensity of Pain at present 8 Aggravating Factors ADL's IVP Administration Document 12/24/17 13:36 OCS (Rec: 12/24/17 13:37 OCS [id number]) Charges for Administration # of IVP Administrations 1 Ondansetron HCl (Zofran Inj) 8 mg IVP STAT STA Stop: 12/24/17 12:42 Last Admin: 12/24/17 13:37 Dose: 8 mg IVP Administration Document 12/24/17 13:37 OCS (Rec: 04/16/18 13:37 OCS [id number]) Charges for Administration # of IVP Administrations 1 - Scribe Statement The provider has reviewed the documentation as recorded by the Barbaraibdomingo Chisholm Provider Scribe Attestation: All medical record entries made by the Scribe were at my direction and personally dictated by me. I have reviewed the chart and agree that the record accurately reflects my personal performance of the history, physical exam, medical decision making, and the department course for this patient. I have also personally directed, reviewed, and agree with the discharge instructions and disposition. Disposition/Present on Arrival - Present on Arrival Any Indicators Present on Arrival: No History of DVT/PE: No History of Uncontrolled Diabetes: No Urinary Catheter: No History Surgical Site Infection Following: None - Disposition Have Diagnosis and Disposition been Completed?: Yes Diagnosis: UTI (urinary tract infection), Colitis Disposition: HOSPITALIZED Disposition Time: 14:50 Patient Plan: Admission Condition: FAIR Referrals: Oleg Floyd MD [Primary Care Provider] - Follow up with primary
[2017-12-24] MEDS ORDERED: Sodium Chloride 0.9% 1,000 ML IV STA (12:40)
[2017-12-24] MEDS ORDERED: Morphine 4 mg/ml ISec IVP STA (12:41)
[2017-12-24] MEDS ORDERED: Iohexol 350 MG/100 ML VIAL ONE (12:46)
[2017-12-24 13:17] LABS: BASO # 0.02 K/mm3 (0.0-2.0); BASO % 0.2 % (0.0-3.0); EOS % 0.3 % (1.5-5.0); GRAN # 8.69 (1.4-6.5); GRAN % 78.1 % (50.0-68.0); HEMOGLOBIN 10.7 g/dL (12.0-16.0); LYMPH # 1.5 (1.2-3.4); LYMPH % 13.7 % (22.0-35.0); MEAN CELL VOLUME 91.4 fl (80.0-105.0); MEAN CORPUSCULAR HEMOGLOBIN 29.6 pg (25.0-35.0); MEAN CORPUSCULAR HGB CONC 32.4 g/dl (31.0-37.0); MEAN PLATELET VOLUME 8.7 fl (7.0-11.0); MONO # 0.9 (0.1-0.6); MONO % 7.7 % (1.0-6.0); RBC 3.61 10^6/uL (3.5-6.1); RED CELL DISTRIBUTION WIDTH 14.6 % (11.5-14.5); WHITE BLOOD COUNT 11.1 10^3/ul (4.5-11.0)
[2017-12-24 13:27] LABS: ALB/GLOB RATIO 1.1 (1.1-1.8); ALBUMIN 3.8 g/dL (3.0-4.8); CALCIUM 9.5 mg/dL (8.4-10.5)
[2017-12-24 14:15] LABS: PH,URINE 5.5 (4.7-8.0); URINE BILIRUBIN MODERATE (NEGATIVE); URINE BLOOD LARGE (NEGATIVE); URINE GLUCOSE (UA) NEGATIVE (NEGATIVE); URINE LEUKOCYTE ESTERASE TRACE Leu/uL (NEGATIVE); URINE PROTEIN 100 mg/dL (<30 mg/dL)
[2017-12-24 14:17] LABS: URINE APPEARANCE CLEAR (CLEAR); URINE COLOR DARK YELLOW (YELLOW)
[2017-12-24 14:21] LABS: URINE BACTERIA MANY (NEG); URINE RBC 20 - 25 /hpf (0-2)
[2017-12-24 14:22] LABS: URINE AMORPHOUS SEDIMENT FEW; URINE COARSE GRANULAR CAST TRACE /hpf (0-2)
--- NOTE | 2017-12-24 14:43 | CT ---
PROCEDURE: CT Abdomen and Pelvis with contrast HISTORY: Abdominal pain COMPARISON: 11/20/2017 TECHNIQUE: CT scan of the abdomen and pelvis was performed after administration of intravenous contrast. Oral contrast was not administered. Coronal and sagittal reformatted images were obtained. Contrast dose: 100 mL Visipaque 350 Radiation dose: Total exam DLP = 193.69 mGy-cm. This CT exam was performed using one or more of the following dose reduction techniques: Automated exposure control, adjustment of the mA and/or kV according to patient size, and/or use of iterative reconstruction technique. FINDINGS: LOWER THORAX: The lung bases are clear. LIVER: The liver is normal in size and there is homogeneous enhancement. There is redemonstration of stable hyperdense lesions, the largest in the left hepatic lobe measures 2.0 x 2.1 cm. No intrahepatic biliary ductal dilatation GALLBLADDER AND BILE DUCTS: There are no calcified gallstones. PANCREAS: There is diffuse atrophy of the pancreas no focal mass. The pancreatic duct is prominent and measures 3 mm. SPLEEN: Spleen is normal in size and appearance. ADRENALS: No discrete nodule. Mild thickening of the left adrenal gland. KIDNEYS AND URETERS: Both kidneys are normal in size with homogeneous enhancement. There is cortical atrophy in the left kidney. There are simple cysts in both kidneys. There is a stable hyperdense cyst in the lower pole of the left kidney likely a hemorrhagic cyst. This persistent moderate hydronephrosis in the left kidney with moderate dilatation of the proximal ureteral and stable appearance of 2.7 x 2.0 cm enhancing nodular mass anterior to the left psoas obstructing the ureteral. . VASCULATURE: Advanced atherosclerotic aortoiliac calcifications. No aortic aneurysm. BOWEL: The small bowel loops are normal in caliber. There is moderate amount of stool in the ascending and transverse colon. There is diffuse circumferential mural thickening in the descending colon, sigmoid colon and rectum with mild pericolonic inflammatory changes. Colonic diverticular are again identified APPENDIX: No inflammatory changes in the right lower quadrant. PERITONEUM: No free fluid. No free air. LYMPH NODES: No enlarged lymph nodes. BLADDER: Unremarkable. REPRODUCTIVE: Age appropriate atrophy of the uterus. There is a persistent 3.8 x 3.6 cm simple cyst in the left ovary. BONES: No acute fracture. There is severe levoscoliosis in the lumbar spine and advanced multilevel degenerative changes. OTHER FINDINGS: There is a small sliding hiatal hernia. There is a small right inguinal hernia containing nonobstructed small bowel loops with IMPRESSION: 1. Diffuse circumferential mural thickening of the descending and sigmoid colon and rectum with pericolonic inflammatory changes most compatible with nonspecific infectious/ inflammatory colitis. 2. Persistent moderate hydronephrosis and moderate dilatation of the left proximal ureteral with a stable 2.7 x 2.0 cm enhancing mass obstructing the proximal ureteral which may represent lymph node or nonspecific malignancy. 3. Stable additional chronic findings as described above including liver lesions, the largest measures 2.1 cm.
[2017-12-24] MEDS ORDERED: metroNIDAZOLE IV 500 mg/100 ml 500 MG/100 ML BAG IVPB STA (14:58)
[2017-12-24] MEDS ORDERED: Morphine 4 mg/ml ISec IVP PRN (14:59)
[2017-12-24] MEDS ORDERED: cefTRIAXone 1 gm 1 GM/100 ML BAG IVPB SCH (15:00)
--- NOTE | 2017-12-24 20:07 | CARD ---
APPROVED REPORT EKG Measurement Heart [id number] <Conclusion> Sinus tachycardia Possible Left atrial enlargement Low voltage QRS Abnormal QRS-T angle, consider primary T wave abnormality Abnormal ECG
[2017-12-24] MEDS: metroNIDAZOLE IV 500 mg/100 ml 500 MG/100 ML BAG IVPB SCH (21:19)
--- NOTE | 2017-12-25 00:13 | CP.PCM.PN ---
Subjective - Date & Time of Evaluation Date of Evaluation: 12/25/17 Time of Evaluation: 00:11 - Subjective Subjective: Patient was seen at bedside because she complained of headache.BP 132/ 73.Afebrile. Headache is frontal, mild. States that it is from stress, laying in the bed all these time. Has no other complaints. Denies nausea, dizziness, weakness , paraesthesia, chest pain , sob. Pertinent medical record was reviewed. This 87 year old white woman was admitted with abdominal pain, nausea, vomiting , UTI, colitis. Has PMH of pseudomonas colitis, diverticulitis, Osteoarthritis, C.Diff, left kidney malignant tumor, on chemotherapy, cataract , former smoker dyslipidemia,depression, CAP. Objective - Vital Signs/Intake and Output Vital Signs (last 24 hours): Temp Pulse Resp BP Pulse Ox 97.8 F 92 H 18 159/73 H 98 12/24/17 12:00 12/24/17 19:00 12/24/17 21:18 12/24/17 19:00 12/24/17 19:00 - Medications Medications: Current Medications Aripiprazole (Abilify) 5 mg PO HS [facility] Last Admin: 12/24/17 21:18 Dose: 5 mg Clonazepam (Klonopin) 1 mg PO QID PRN; Protocol PRN Reason: Anxiety Metronidazole (Flagyl) 500 mg in 100 mls @ 100 mls/hr IVPB Q8 EZEQUIEL PRN Reason: Protocol Last Admin: 12/24/17 21:19 Dose: 100 mls/hr Ceftriaxone Sodium (Rocephin 1 Gram Ivpb) 1 gm in 100 mls @ 100 mls/hr IVPB DAILY EZEQUIEL PRN Reason: Protocol Mirtazapine (Remeron) 30 mg PO [facility] Last Admin: 12/24/17 21:19 Dose: 30 mg Morphine Sulfate (Morphine) 4 mg IV Q4H PRN PRN Reason: Pain, moderate (4-7) Paroxetine HCl (Paxil) 30 mg PO [facility] Last Admin: 12/24/17 21:19 Dose: 30 mg Assessment and Plan - Assessment and Plan (Free Text) Assessment: Frontal headache-Stress. HLD. Depression. Left kidney malignant tumor. Osteoarthritis. Hx diverticulitis. On chemotherapy.
[2017-12-25] MEDS: metroNIDAZOLE IV 500 mg/100 ml 500 MG/100 ML BAG IVPB SCH ×3 (06:03→21:05)
[2017-12-25 07:58] LABS: HEMOGLOBIN 9.4 g/dL (12.0-16.0); MEAN CELL VOLUME 90.4 fl (80.0-105.0); MEAN CORPUSCULAR HEMOGLOBIN 29.1 pg (25.0-35.0); MEAN CORPUSCULAR HGB CONC 32.2 g/dl (31.0-37.0); MEAN PLATELET VOLUME 8.7 fl (7.0-11.0); RBC 3.23 10^6/uL (3.5-6.1); RED CELL DISTRIBUTION WIDTH 14.9 % (11.5-14.5); WHITE BLOOD COUNT 8.6 10^3/ul (4.5-11.0)
[2017-12-25 08:09] LABS: ALB/GLOB RATIO 1.2 (1.1-1.8); ALBUMIN 3.4 g/dL (3.0-4.8); CALCIUM 8.7 mg/dL (8.4-10.5)
[2017-12-25] MEDS ORDERED: cefTRIAXone 1 gm 1 GM/100 ML BAG IVPB SCH (10:00)
[2017-12-25] MEDS ORDERED: Morphine 4 mg/ml ISec IV PRN (11:32)
--- NOTE | 2017-12-25 16:15 | HP ---
CHIEF COMPLAINT AND HISTORY OF PRESENT ILLNESS: This is an 87-year-old female, who is coming into the hospital complaining of abdominal pain, nausea and vomiting. The patient has past medical history of squamous cell carcinoma of unknown primary. The patient also has a history of C. diff. She was getting gemcitabine with Dr. Hernandez and had received one dose. The patient had a CAT scan that was abnormal and so she was admitted to the hospital for further evaluation. The patient has no complaints of any chest pain or shortness of breath. No nausea. No vomiting. She states the pain initially was about 4-5/10. She has no headaches or dizziness. No fevers or chills. She denies any diarrhea. She is concerned about her C. diff. She is able to ambulate. REVIEW OF SYMPTOMS: All other review of symptoms are within normal limits except that was mentioned. ALLERGIES: TETRACYCLINE. SOCIAL HISTORY: She denies smoking, drinking or alcohol. PAST MEDICAL HISTORY: C. diff colitis, dyslipidemia, osteoarthritis, community-acquired pneumonia, UTI, depression, cancer of unknown primary with squamous cell carcinoma, left-sided hydronephrosis with stent placement, anxiety. PAST SURGICAL HISTORY: Ovarian cyst surgery and carpal tunnel surgery. FAMILY HISTORY: Noncontributory. PHYSICAL EXAMINATION: VITAL SIGNS: Temperature is 97.8, pulse of 105, blood pressure is 159/73, respirations 18, O2 saturation 98%. Height is 5 feet 1. Weight is 110 pounds. GENERAL: The patient lying in bed, uncomfortable, and in no acute distress. HEENT: Atraumatic and normocephalic. Anicteric sclerae. Moist mucosa. [place] conjunctivae. No oral lesions. NECK: No JVD, anterior and posterior adenopathy, thyromegaly, or bruits. CARDIOVASCULAR: S1 and S2 regular. No murmur, rubs, or gallop. LUNGS: Clear to auscultation bilaterally. No wheezes, rales, or rhonchi. ABDOMEN: Bowel sounds are positive. Soft, nontender and nondistended. No hepatosplenomegaly. No rebound and no guarding EXTREMITIES: No cyanosis, clubbing, or edema. NEUROLOGIC: No facial asymmetry. Tongue is midline. No uvula deviation. Power is 5/5 upper extremity and lower extremity. Sensation intact in upper extremity and lower extremity. PSYCHIATRIC: She is awake, alert and oriented x3. No anxiety or depression. She has normal affect. GENITOURINARY: No CVA tenderness. VASCULAR: 2+ pulses in the carotid pulses and pedal pulses. SKIN: No erythema or nodules SPINE: Shows normal curvature. LABORATORY DATA: White count of 11.1, hemoglobin is 10.7, platelet count is 239. Repeat white count of 8.6. Chemistry shows a creatinine of 1.1. Urine shows blood that is large, nitrites are positive, bilirubin is moderate. Abdominal CT shows diffuse circumferential mural thickening of the descending and sigmoid colon and rectum with pericolonic inflammatory changes. Next is moderate hydronephrosis and moderate dilation of the left proximal ureteral area, there is a 2.7 x 2 cm enhancing mass. EKG shows sinus tachycardia with low QRS. QTc is 433. ASSESSMENT: 1. Colitis. 2. Squamous cell carcinoma of unknown primary. 3. Left-sided hydronephrosis. 4. Hepatic cyst. 5. Anxiety. 6. Osteoarthritis. 7. Dyslipidemia. 8. History of clostridium difficile colitis. 9. Tetracycline allergy. 10. Urinary tract infection. PLAN: The patient is going to be admitted to the hospital. She has UA that is abnormal. She had a CT scan that shows colitis. The patient had a stent from previous admission in the left kidney. The patient has received one dose of gemcitabine from Dr. Hernandez. The patient is going to be admitted to the hospital and is going to be on Flagyl and Rocephin for antibiotics. I will get ID evaluation with Dr. Álvarez. I will also have Dr. Hernandez on consult for her cancer. The patient is on morphine for pain. I did speak to the patient's daughter yesterday to give her an update on the patient's diagnosis and plan of care. The patient is on Remeron for anxiety and depression. She is receiving Abilify for her anxiety as well. The patient is on Tylenol as needed. The patient is going to be on a heart-healthy diet. She has a urine culture and blood cultures that have been ordered. She is ambulatory. We will wait for cultures. I will also send a C. diff. Oleg Floyd MD
--- NOTE | 2017-12-25 23:18 | CON ---
DATE: 12/25/2017 CONSULT REQUESTED BY: Dr. Floyd. REASON FOR CONSULTATION: Squamous cell cancer, unknown primary. HISTORY OF PRESENT ILLNESS: Ms. Hill is an 87-year-old female admitted to the hospital with abdominal pain. She has history of C. diff colitis. She received one dose of gemcitabine 2 weeks ago. She was complaining of abdominal pain over the weekend. She was advised to take oral Flagyl, which she took. She refused to take oral antibiotics. She was referred to ER for further evaluation and treatment. CT of abdomen and pelvis showed mild colitis. UA was positive. Urine culture negative. She is currently on IV antibiotics, ceftriaxone and Flagyl. Denies any abdominal pain. No nausea, no vomiting. Ambulating without any discomfort. ALLERGIES: TETRACYCLINE. PAST MEDICAL HISTORY: C. diff colitis, osteoarthritis, community-acquired pneumonia, UTI, depression, left-sided hydronephrosis, anxiety. PAST SURGICAL HISTORY: Ovarian cyst, carpal tunnel surgery. FAMILY HISTORY: Noncontributory. REVIEW OF SYSTEMS: As per HPI. Rest of 12-point review of systems reviewed negative. PHYSICAL EXAMINATION: GENERAL: Comfortable in bed, in no acute distress. VITAL SIGNS: Temperature 97.8, heart rate 100 per minute. blood pressure 130/70, respiratory rate 18 per minute, oxygen saturation 98% on room air. HEENT: No pallor. NECK: No lymphadenopathy. CHEST: Air entry present and equal bilaterally. No added sounds. CARDIOVASCULAR: S1, S2 normal. No murmur. No gallop. ABDOMEN: Soft, nontender. No hepatosplenomegaly. EXTREMITIES: No edema. CENTRAL NERVOUS SYSTEM: Alert, oriented x3. No focal sensory or motor deficit. LABORATORY DATA: White count 11,000, hemoglobin 10.7, platelets 239. Creatinine 1.1. UA, positive nitrite. Imaging as per HPI. ASSESSMENT: 1. Squamous cell cancer, stage IV, unknown primary. 2. Left-sided hydronephrosis. 3. History of C. diff colitis. PLAN: She is currently on IV antibiotics, ceftriaxone, and Flagyl. I would recommend continuing that. Blood count stable. Urine culture did not show any growth. Blood culture is negative. Clinically, she has improved. No diarrhea. No nausea or vomiting. Squamous cell cancer, unknown primary in abdomen. We will resume chemotherapy once she has recovered from colitis. Discussed with the patient at length. Thank you, Dr. Floyd, for allowing us to participate in Ms. Hill's care. We will continue to follow. Alma Hernandez MD
[2017-12-26] MEDS: Cefepime 1gm in NS 100ml 1 GM/100 ML BAG IVPB SCH ×3 (01:04→21:11)
[2017-12-26] MEDS: Vancomycin 25 MG/ML PO SCH ×5 (01:05→21:11)
[2017-12-26] MEDS: metroNIDAZOLE IV 500 mg/100 ml 500 MG/100 ML BAG IVPB SCH ×3 (06:24→22:21)
--- NOTE | 2017-12-26 09:25 | CON ---
DATE: 12/25/2017 LOCATION: Patient was seen earlier this morning in room 576, bed 2. CHIEF COMPLAINT: Abdominal pain, nausea and vomiting x 1 to 2 days duration. HISTORY OF PRESENT ILLNESS: This is an 87-year-old female with history of depression, history of cataract, right ear deafness, irritable bowel syndrome, perirenal mass, hydronephrosis, pseudomembranous colitis, squamous cell cancer of unknown primary and diverticulitis, who was admitted through the emergency room with diagnosis of colitis and urinary tract infection and patient, this morning, is much better, she states, with the fluids she received. REVIEW OF SYSTEMS: Twelve point review of system has been performed. She denies any headaches or blurred vision. No chest pain. No cough or hemoptysis. No dysuria. She did have frequency. No new back pain. No new chest pain. PAST MEDICAL HISTORY: Significant for squamous cell cancer of unknown primary, diverticulitis, pseudomembranous colitis, hydronephrosis, perirenal mass, inflammatory bowel syndrome, right ear deafness, cataract and depression. PAST SURGICAL HISTORY: Significant for appendectomy, carpal tunnel syndrome, ovarian cyst surgery. ALLERGIES: PATIENT IS ALLERGIC TO TETRACYCLINE. MEDICATIONS AT HOME: Include the patient could be on Klonopin, Abilify, , mirtazapine. PHYSICAL EXAMINATION: GENERAL: Patient is in bed, in no acute distress, answering questions appropriately, appeared to be comfortable after this morning. VITAL SIGNS: Patient's temperature of 98; pulse of 92, it was up to 105; respiratory rate of 18; it was up to 20 and blood pressure is 159/73. HEENT: Unremarkable. NECK: Supple. LUNGS: Have decreased breath sounds. HEART: Normal S1 and S2. ABDOMEN: Soft, nontender. No rebound, no guarding, no masses. LABORATORY EXAMINATION: Reveals a white count of 11,100, hemoglobin of 10, platelets of 239. Chemistries reveal a BUN of 19, creatinine of 1.1 and LFTs are normal. Lipase and amylase are normal. Urinalysis reveals 5 to 10 wbc's and many bacteria. Blood cultures has been ordered, which are reported to be negative. Urine cultures are reported to be negative. CAT scan of the abdomen and pelvis is reviewed and is read by and is reported as diffuse mural thickening and consistent with colitis. ASSESSMENT AND PLAN: An 87-year-old female with depression, cataract, right ear deafness, inflammatory bowel syndrome, perirenal mass, and hydronephrosis, history of pseudomembranous colitis, diverticulitis, squamous cell cancer with unknown primary, presenting with abdominal pain, nausea, vomiting, diarrhea. Pseudomembranous colitis. We will treat the patient with Flagyl, Maxipime and p.o. vancomycin. Pending blood cultures, stool cultures and stool for Clostridium difficile. Case was discussed with Dr. Floyd this morning. We will make further recommendations, pending panculture results. Sebastian Álvarez MD : 12/25/2017 21:27:29
[2017-12-26 15:52] VITALS: RESP 20
[2017-12-26] MEDS ORDERED: Alum-Mag Hydrox-Simethicone Susp (30 mL) PO PRN (19:55)
--- NOTE | 2017-12-26 20:34 | CP.PCM.CON ---
History of Present Illness - History of Present Illness History of Present Illness: GI consult note. Dr. Gutierrez 87yo F with PMHx of C.Diff colitis, HLD, OA, Community-acquired PNA, UTI, Depression, Squamous cell CA (unknown primary), Anxiety here for evaluation of abdomianl pain, nausea and vomiting. She states that she got one round of chemo 10 days ago and was scheduled to recieve another dose on Sunday, [address] Hernandez. However, patient had CT concerning for colitis and was sent to the hospital for further evaluation. She denies any sick contacts. She states that since coming to the hospital and getting IV Abx, she feels much better. Still reports mild abdominal pain. No more episodes of nausea or vomiting. No diarrhea. No F/C. No CP/SOB PMHx: C.Diff colitis, HLD, OA, community-acquired PNA, UTI, Depression, Squamous cell CA with unknown primary s/p 1 round of chemo, Anxiety PSHx: Ovarian cyst removal, Carpal tunnel surgery Social Hx: Denies tobacco, denies ETOH, denies illicit drugs Allergy: Tetracycline Review of Systems - Review of Systems All systems: reviewed and no additional remarkable complaints except - Constitutional Constitutional: absent: Anorexia, Chills, Fever - Cardiovascular Cardiovascular: absent: Chest Pain, Dyspnea - Gastrointestinal Gastrointestinal: Abdominal Pain, Nausea, Vomiting. absent: Diarrhea, Hematemesis, Hematochezia, Melena - Genitourinary Genitourinary: absent: Difficulty Urinating, Dysuria Past Patient History - Infectious Disease Hx of Infectious Diseases: C.diff - Tetanus Immunizations Tetanus Immunization: Unknown - Past Social History Smoking Status: Never Smoked - CARDIAC Hx Pacemaker: No - PULMONARY Hx Respiratory Disorders: Yes (SMOKED CIGARETTES BEFORE QUIT PK EVERY OTHER DAY) Hx Tuberculosis: No - NEUROLOGICAL Hx Dizziness: Yes - HEENT Hx Cataracts: Yes 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) - RENAL Hx Chronic Kidney Disease: No - ENDOCRINE/METABOLIC Hx Endocrine Disorders: No - HEMATOLOGICAL/ONCOLOGICAL Hx Cancer: Yes - INTEGUMENTARY Hx Dermatological Problems: Yes - MUSCULOSKELETAL/RHEUMATOLOGICAL Hx Falls: Yes - GASTROINTESTINAL Hx Diverticulitis: Yes - GENITOURINARY/GYNECOLOGICAL Hx Genitourinary Disorders: Yes - PSYCHIATRIC Hx Anxiety: Yes Hx Emotional Abuse: No Hx Physical Abuse: No - SURGICAL HISTORY Hx Appendectomy: Yes - ANESTHESIA Hx Anesthesia Reactions: No Hx Malignant Hyperthermia: No Meds Allergies/Adverse Reactions: Allergies Allergy/AdvReac Type Severity Reaction Status Date / Time tetracycline Allergy Severe ANAPHYLAXIS Verified 12/24/17 12:24 - Medications Medications: Current Medications Acetaminophen (Tylenol 325mg Tab) 650 mg PO Q4H PRN PRN Reason: Pain, Mild (1-3) Last Admin: 12/26/17 14:16 Dose: 650 mg Al Hydrox/Mg Hydrox/Simethicone (Maalox Plus 30 Ml) 30 ml PO Q6H PRN PRN Reason: Indigestion / Heartburn Last Admin: 12/26/17 20:15 Dose: 30 ml Aripiprazole (Abilify) 5 mg PO HS [facility] Last Admin: 12/25/17 21:04 Dose: 5 mg Clonazepam (Klonopin) 1 mg PO QID PRN; Protocol PRN Reason: Anxiety Last Admin: 12/26/17 09:30 Dose: 1 mg Metronidazole (Flagyl) 500 mg in 100 mls @ 100 mls/hr IVPB Q8 EZEQUIEL PRN Reason: Protocol Last Admin: 12/26/17 14:17 Dose: 100 mls/hr Cefepime HCl (Maxipime 1gm) 1 gm in 100 mls @ 100 mls/hr IVPB Q12 EZEQUIEL PRN Reason: Protocol Stop: 01/03/18 22:01 Last Admin: 12/26/17 09:30 Dose: 100 mls/hr Mirtazapine (Remeron) 30 mg PO HS [facility] Last Admin: 12/25/17 21:05 Dose: 30 mg Morphine Sulfate (Morphine) 4 mg IV Q4H PRN PRN Reason: Pain, moderate (4-7) Paroxetine HCl (Paxil) 30 mg PO HS [facility] Last Admin: 12/25/17 21:05 Dose: 30 mg Valacyclovir HCl (Valtrex) 500 mg PO DAILY EZEQUIEL PRN Reason: Protocol Last Admin: 12/26/17 09:30 Dose: 500 mg Vancomycin HCl (Vancocin 25 Mg/Ml (Oral Use)) 250 mg PO QID EZEQUIEL PRN Reason: Protocol Stop: 01/08/18 22:01 Last Admin: 12/26/17 18:04 Dose: 250 mg Physical Exam - Constitutional Appears: Non-toxic, No Acute Distress - Head Exam Head Exam: ATRAUMATIC, NORMAL INSPECTION, NORMOCEPHALIC - Eye Exam Eye Exam: EOMI, Normal appearance - ENT Exam ENT Exam: Mucous Membranes Moist - Respiratory Exam Respiratory Exam: NORMAL BREATHING PATTERN. absent: Accessory Muscle Use, Respiratory Distress - Cardiovascular Exam Cardiovascular Exam: RRR. absent: JVD - GI/Abdominal Exam GI & Abdominal Exam: Soft. absent: Distended, Firm, Guarding, Rebound, Rigid Additional comments: mild left lower quad tenderness to palpation. No rebound. No guarding. - Extremities Exam Extremities exam: Positive for: normal inspection. Negative for: calf tenderness - Neurological Exam Neurological exam: Alert, Oriented x3 - Skin Skin Exam: Dry, Intact, Normal Color, Warm Results - Vital Signs Recent Vital Signs: Last Vital Signs Temp 98.4 F 12/26/17 14:00 Pulse 90 12/26/17 14:00 Resp 20 12/26/17 14:00 BP 154/78 H 12/26/17 14:00 Pulse Ox 99 12/26/17 14:00 - Labs Result Diagrams: 12/25/17 07:30 12/25/17 07:30 Assessment & Plan - Assessment and Plan (Free Text) Assessment: 87yo F with hx of cdiff colitis, unknown primary squamous cell CA s/p 1 round of chemo, here for evaluation of abdominal pain - CT abd/pelvis noted. Concerning for left-sided colitis Plan: - f/u stool c.diff - continue abx as per ID - diet as tolerated - continue current treatment - we will follow Further recs as per Dr. Brenda Marcos PGY1
--- NOTE | 2017-12-27 01:01 | PN ---
DATE: 12/26/2017 FOLLOWUP NOTE SUBJECTIVE: She is currently comfortable, walking in the room. No abdominal pain. No nausea. No vomiting. Oral intake is good. Urine culture was negative. REVIEW OF SYSTEMS: As per HPI. Rest of 12-point review of systems reviewed and negative. PHYSICAL EXAMINATION: GENERAL: Comfortable in bed, in no acute distress VITAL SIGNS: Stable. Temperature 97.8, heart rate 78 per minute, blood pressure 140/77, respiratory rate 18 per minute, oxygen saturation 97% on room air. HEENT: Pallor positive. NECK: No lymphadenopathy. CHEST: Air entry present and equal bilaterally. No added sounds. CARDIOVASCULAR: S1, S2 normal. No murmur. No gallop. ABDOMEN: Soft, nontender. No hepatosplenomegaly. EXTREMITIES: No edema. LABORATORY DATA: White count , hemoglobin 9.4, hematocrit 29.2, platelet count 181. Sodium 134, potassium 3.9, creatinine 1.3. ASSESSMENT: 1. Stage IV squamous cell cancer, unknown primary. 2. Colitis. 3. Bipolar disorder. PLAN: She is currently on IV antibiotic as per ID. Clinically improved. Blood count stable. No UTI. Urine culture is negative. Stage IV squamous cell cancer, received one dose of gemcitabine. We will resume chemotherapy upon discharge from the hospital. Discussed with the patient at length. She want to resume chemotherapy this Sunday. I told her we will wait another week until she recover totally from colitis. Thank you Dr. Floyd for allowing us to participate in Ms. Hill's care. Alma Hernandez MD
--- NOTE | 2017-12-27 01:26 | DS ---
HISTORY OF PRESENT ILLNESS: This is an 87-year-old female who had come in to the hospital and was found to have a colitis. The patient was given IV antibiotics. She had improvement of her symptoms. She is ambulating. She is able to tolerate a diet. She has no complaints of any chest pain. No shortness of breath. No headaches or dizziness. PHYSICAL EXAMINATION: VITAL SIGNS: Temperature is 97.9, pulse of 81, blood pressure is 119/72, respirations 20. GENERAL: The patient is lying in bed, flat, comfortable. HEENT: No oral lesion. Anicteric sclerae. Moist mucosa. NECK: No JVD, adenopathy, or thyromegaly. CARDIOVASCULAR: S1 and S2, regular. No murmurs, rubs, or gallops. LUNGS: Clear to auscultation bilaterally. No wheeze, rales, or rhonchi. ABDOMEN: Bowel sounds are positive, soft, nontender and nondistended. EXTREMITIES: No cyanosis, clubbing or edema. ASSESSMENT: 1. Colitis. 2. Squamous cell carcinoma of unknown primary. 3. Left-sided hydronephrosis. 4. Hepatic cyst. 5. Anxiety. 6. Osteoarthritis. 7. Dyslipidemia. 8. History of Clostridium difficile. 9. Tetracycline allergy. PLAN: The patient is currently on Abilify. This will be continued. She is on Flagyl, cefepime for antibiotic. She is on morphine for pain. She is paroxetine. She is going to continue with Remeron. The patient is on vancomycin for history of C. diff. She is on heart-healthy diet. C. diff has been ordered, but has not been taken yet. She has not been having any diarrhea. Oleg Floyd MD
[2017-12-27 01:28] VITALS: PULSE 94
--- NOTE | 2017-12-27 03:20 | PN ---
DATE: 12/26/2017 SUBJECTIVE: Patient was seen early this morning in room 576, bed 2. She is doing better. She states she did not have any diarrhea and the abdominal discomfort has resolved. No fevers, no chills. No chest pain or shortness of breath. PHYSICAL EXAMINATION: VITAL SIGNS: Temperature 98, blood pressure 150/70, respiratory rate 20, heart rate 70. HEENT: Unremarkable. NECK: Supple. LUNGS: Decreased breath sounds. HEART: Normal S1, S2. ABDOMEN: Soft, nontender. LABORATORY DATA: White count of 11,000, hemoglobin of 10, platelet 239. BUN of 19, creatinine 1.1. Urinalysis is noted. Microbiology reveals blood culture is negative and urine culture is negative. Review orders reveals the patient has been on cefepime and p.o. vancomycin. Patient is on and Flagyl. ASSESSMENT AND PLAN: This is an 87-year-old female with depression, cataract, right ear deafness, inflammatory bowel syndrome, perirenal mass, hydronephrosis, history of pseudomembranous colitis, squamous cell cancer of unknown primary, presenting with abdominal pain, nausea, vomiting, and diarrhea and with pseudomembranous colitis on Maxipime, Flagyl, and p.o. vancomycin. We will follow closely with you. Sebastian Álvarez MD
[2017-12-27] MEDS: metroNIDAZOLE IV 500 mg/100 ml 500 MG/100 ML BAG IVPB SCH (05:24)
[2017-12-27 07:43] LABS: BASO # 0.02 K/mm3 (0.0-2.0); BASO % 0.3 % (0.0-3.0); EOS # 0.2 (0.0-0.7); EOS % 2.2 % (1.5-5.0); GRAN # 3.62 (1.4-6.5); HEMOGLOBIN 9.2 g/dL (12.0-16.0); LYMPH # 2.5 (1.2-3.4); LYMPH % 34.2 % (22.0-35.0); MEAN CORPUSCULAR HEMOGLOBIN 28.7 pg (25.0-35.0); MEAN CORPUSCULAR HGB CONC 31.8 g/dl (31.0-37.0); MEAN PLATELET VOLUME 8.6 fl (7.0-11.0); MONO # 1.1 (0.1-0.6); MONO % 14.3 % (1.0-6.0); RBC 3.21 10^6/uL (3.5-6.1); RED CELL DISTRIBUTION WIDTH 14.8 % (11.5-14.5); WHITE BLOOD COUNT 7.4 10^3/ul (4.5-11.0)
[2017-12-27 08:08] LABS: ALB/GLOB RATIO 1.1 (1.1-1.8); ALBUMIN 3.1 g/dL (3.0-4.8); ALT/SGPT 26 U/L (7-56); AST/SGOT 23 U/L (14-36); BLOOD UREA NITROGEN 13 mg/dL (7-21); CALCIUM 8.9 mg/dL (8.4-10.5); GFR AFRICAN-AMERICAN > 60; GFR NON-AFRICAN AMERICAN 52
[2017-12-27 08:57] VITALS: BP 163/81; TEMP 98.3; O2SAT 96
[2017-12-27] MEDS: Vancomycin 25 MG/ML PO SCH (08:59)
[2017-12-27] MEDS: Cefepime 1gm in NS 100ml 1 GM/100 ML BAG IVPB SCH (09:00)
--- NOTE | 2017-12-27 11:13 | DS ---
HISTORY OF PRESENT ILLNESS: The patient has no complaints of any chest pain, no shortness of breath, no headaches. She initially came to the hospital because she had a colitis, and the patient was treated with IV antibiotics and she is going to be switched over to p.o. She has no diarrhea. She says her abdomen pain is improved and she is comfortable. She is able to eat and drink. PHYSICAL EXAMINATION: VITAL SIGNS: Temperature is 99.2, pulse of 94, blood pressure is 169/91, respirations 20. GENERAL: The patient is lying in bed, flat, comfortable. HEENT: No oral lesion. Anicteric sclerae. Moist mucosa. NECK: No JVD, adenopathy, or thyromegaly. CARDIOVASCULAR: S1 and S2, regular. No murmurs, rubs, or gallops. LUNGS: Clear to auscultation bilaterally. No wheeze, rales, or rhonchi. ABDOMEN: Bowel sounds are positive, soft, nontender and nondistended. EXTREMITIES: No cyanosis, clubbing or edema. LABS: Creatinine is 1.3. ASSESSMENT: 1. Colitis. 2. Squamous cell carcinoma of unknown primary. 3. Left-sided hydronephrosis secondary to mass. 4. Hepatic cyst. 5. Anxiety. 6. Osteoarthritis. 7. Dyslipidemia. 8. History of clostridium difficile. 9. Tetracycline allergy. PLAN: The patient is currently comfortable. She is tolerating her diet. She is on IV antibiotics. She has blood cultures and urine cultures and has been negative. She has stage IV squamous cell carcinoma of unknown primary. I did speak to the patient's daughter to give her an update. CONDITION: Stable. ACTIVITIES: Increase as tolerated. She is on Paxil for her anxiety. She is on Valtrex for possible prophylaxis. She is getting Remeron as well. She is on heart-healthy diet. Oleg Floyd MD
--- NOTE | 2017-12-28 03:40 | PN ---
DATE: SUBJECTIVE: The patient is in bed, in no acute distress, nontoxic. PHYSICAL EXAMINATION: VITAL SIGNS: Temperature is 99, blood pressure is 160/80, respiratory rate 20, heart rate of 94. HEENT: Unremarkable. NECK: Supple. LUNGS: Have decreased breath sounds. HEART: Normal S1 and S2. ABDOMEN: Soft. LABORATORY DATA: Reveals a white count of 7.4, hemoglobin of 9, platelets of 177. Chemistry is noted. Microbiology is noted. ASSESSMENT AND PLAN: This is a 87-year-old female who was seen early this morning in 576, bed 2, with depression, cataract, right ear deafness, inflammatory bowel syndrome, perirenal mass, hydronephrosis, and history of pseudomembranous colitis, squamous cell of unknown primary, who has presented with abdominal pain, nausea, vomiting, and diarrhea and will confirm the pseudomembranous colitis complete a short course of the antibiotics. Sebastian Álvarez MD
== END 2017-12-27 11:45 | disposition home or self-care (01) | DRG 392 ==
LOC: ED 11:44 → ERH 14:59 → 5RSO 19:28
PROVIDERS: ADMIT Internal Medicine Nephrology; ATTEND Internal Medicine Nephrology
DX: K52.9 Noninfective gastroenteritis and colitis, unspecified (principal); N13.30 Unspecified hydronephrosis; C80.1 Malignant (primary) neoplasm, unspecified; K76.89 Other specified diseases of liver; F41.9 Anxiety disorder, unspecified; M19.90 Unspecified osteoarthritis, unspecified site; E78.5 Hyperlipidemia, unspecified; F31.9 Bipolar disorder, unspecified; H91.91 Unspecified hearing loss, right ear; H26.9 Unspecified cataract; R51 Headache; K58.9 Irritable bowel syndrome, unspecified; Z86.19 Personal history of other infectious and parasitic diseases; Z88.1 Allergy status to other antibiotic agents; Z87.891 Personal history of nicotine dependence; Z90.49 Acquired absence of other specified parts of digestive tract

== ENCOUNTER 2018-04-05 03:53 | Inpatient (IN) | payer MEDICARE, OTHER ==
[2018-04-05 04:07] VITALS: BMI 19.2
[2018-04-05] MEDS ORDERED: Sodium Chloride 0.9% 1,000 ML IV STA (04:15)
[2018-04-05] MEDS ORDERED: Morphine 2 mg/ml ISec IVP STA (04:16)
--- NOTE | 2018-04-05 04:47 | ED PDOC ---
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 Patient states she was scheduled for an abdominal scan today, but is unsure what type it is. She states she was able to eat yesterday. Patient reports nausea, but denies any fever, chills, chest pain, shortness of breath, nausea, vomiting, diarrhea, urinary symptoms, back pain, neck pain, headache, dizziness, or any other complaints. PMD: Dr. 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) - Renal Hx Renal Disorder: No Hx Renal Cancer: Yes - Endocrine/Metabolic Hx Endocrine Disorders: No - Hematological/Oncological Hx Cancer: Yes (small tumor found in kidney) - Integumentary Hx Dermatological Disorder: Yes - Musculoskeletal/Rheumatological Hx Falls: Yes - Gastrointestinal Hx Diverticulitis: Yes - Genitourinary/Gynecological Hx Genitourinary Disorders: Yes - Psychiatric Hx Anxiety: Yes Hx Emotional Abuse: No Hx Physical Abuse: No Hx Substance Use: No - Past Surgical History Past Surgical History: Non-Contributing - Surgical History Hx Appendectomy: Yes - Anesthesia Hx Anesthesia Reactions: No Hx Malignant Hyperthermia: No - Suicidal Assessment Feels Threatened In Home Enviroment: No Family/Social History - Physician Review Nursing Documentation Reviewed: Yes Family/Social History: No Known Family HX Smoking Status: Never Smoked Hx Alcohol Use: No Hx Substance Use: No Hx Substance Use Treatment: No Allergies/Home Meds Allergies/Adverse Reactions: Allergies tetracycline Allergy (Severe, Verified 12/24/17 12:24) ANAPHYLAXIS Home Medications: Home Meds Medication Instructions Recorded Confirmed ARIPiprazole [Abilify] 5 mg PO HS 12/24/17 12/24/17 Clonazepam [Klonopin] 1 mg PO QID 12/24/17 12/24/17 Mirtazapine [Remeron] 30 mg PO HS 12/24/17 12/24/17 PARoxetine [Paxil] 30 mg PO HS 12/24/17 12/24/17 Review of Systems - Physician Review All systems were reviewed & negative as marked: Yes - Review of Systems Constitutional: absent: Fevers, Other (Chills) Respiratory: absent: SOB Cardiovascular: absent: Chest Pain Gastrointestinal: Abdominal Pain, Nausea. absent: Diarrhea, Vomiting, Hematochezia Genitourinary Female: absent: Dysuria, Frequency, Hematuria Musculoskeletal: absent: Back Pain, Neck Pain Neurological: absent: Headache, Dizziness Physical Exam Vital Signs Reviewed: Yes Vital Signs Temp Pulse Resp BP Pulse Ox 04/05/18 04:00 98.2 F 112 H 16 161/85 H 100 04/05/18 03:53 17 98 Temperature: Afebrile Blood Pressure: Hypertensive Pulse: Tachycardic Respiratory Rate: Normal Appearance: Positive for: Well-Appearing, Non-Toxic, Comfortable Pain Distress: None Mental Status: Positive for: Alert and Oriented X 3 - Systems Exam Head: Present: Atraumatic, Normocephalic Pupils: Present: PERRL Extroacular Muscles: Present: EOMI Conjunctiva: Present: Normal Mouth: Present: Moist Mucous Membranes Neck: Present: Normal Range of Motion Respiratory/Chest: Present: Clear to Auscultation, Good Air Exchange. No: Respiratory Distress, Accessory Muscle Use Cardiovascular: Present: Regular Rate and Rhythm, Normal S1, S2. No: Murmurs Abdomen: Present: Tenderness (Mild diffuse tenderness). No: Distention, Peritoneal Signs Back: Present: Normal Inspection Upper Extremity: Present: Normal Inspection. No: Cyanosis, Edema Lower Extremity: Present: Normal Inspection. No: Edema Neurological: Present: GCS=15, CN II-XII Intact, Speech Normal Skin: Present: Warm, Dry, Normal Color. No: Rashes Psychiatric: Present: Alert, Oriented x 3, Normal Insight, Normal Concentration Medical Decision Making ED Course and Treatment: 04/05/18 04:05 Impression: 87 year old female presents complaining of abdominal pain that began yesterday associated with nausea. Plan: -- CT Abd & Pelvis IV Contrast -- Labs -- Morphine, Pepcid, IV Fluids, Zofran Inj -- Blood Culture, Urine Culture -- Urinalysis -- Reassess and disposition Prior Visits: Notes and results from previous visits were reviewed. Patient was last seen in the emergency department on 12/24/17 presents complaining of abdominal pain associated with nausea and vomiting that began today. Patient was admitted. Progress Notes: - Lab Interpretations Lab Results: 04/05/18 04:55 04/05/18 04:55 Lab Results 04/05/18 05:30: Urine Color Yellow, Urine Appearance Sl cloudy, Urine pH 6.0, Ur Specific [place] 1.010, Urine Protein Negative, Urine Glucose (UA) Negative, Urine Ketones Negative, Urine Blood Large H, Urine Nitrate Negative, Urine Bilirubin Negative, Urine Urobilinogen 0.2, Ur Leukocyte Esterase Small H, Urine RBC 5 - 10, Urine WBC 2 - 5, Ur Epithelial Cells 0 - 2, Urine Bacteria Few 04/05/18 04:55: Sodium 140, Potassium 4.5, Chloride 105, Carbon Dioxide 26, Anion Gap 13, BUN 15, Creatinine 0.9, Est GFR ( Amer) > 60, Est GFR (Non- Af Amer) 59, Random Glucose 94, Calcium 9.1, Magnesium 1.9, Total Bilirubin 0.4 , AST 34, ALT 33, Alkaline Phosphatase 80, Total Protein 6.4, Albumin 3.4, Globulin 2.9, Albumin/Globulin Ratio 1.2, Amylase 60, Lipase 38 04/05/18 04:55: WBC 7.6, RBC 2.52 L, Hgb 8.7 L, Hct 26.3 L, MCV 104.4 D, MCH 34.5, MCHC 33.1, RDW 17.8 H, Plt Count 248, MPV 9.4, Gran % 58.0, Lymph % (Auto ) 27.5, [place] % (Auto) 13.9 H, Eos % (Auto) 0.5 L, Baso % (Auto) 0.1, Gran # 4.39 , Lymph # (Auto) 2.1, [place] # (Auto) 1.1 H, Eos # (Auto) 0.0, Baso # (Auto) 0.01 I have reviewed the lab results: Yes - RAD Interpretation Radiology Orders: 04/05/18 04:15 ABD & PELVIS IV CONTRAST ONLY [CT] Stat - Medication Orders Current Medication Orders: Sodium Chloride (Sodium Chloride 0.9%) 1,000 mls @ 100 mls/hr IV .Q10H STA Stop: 04/05/18 14:14 Last Admin: 04/05/18 05:10 Dose: 100 mls/hr eMAR Start Stop Document 04/05/18 05:10 [facility] (Rec: 04/05/18 05:10 [facility] [id number]) Intravenous Solution Start Date 04/05/18 Start Time 05:10 End Date 04/05/18 Discontinued Medications Famotidine (Pepcid) 20 mg IVP STAT STA Stop: 04/05/18 04:16 Last Admin: 04/05/18 05:02 Dose: 20 mg IVP Administration Document 04/05/18 05:02 [facility] (Rec: 04/05/18 05:09 [facility] [id number]) Charges for Administration # of IVP Administrations 1 Morphine Sulfate (Morphine) 2 mg IVP STAT STA Stop: 04/05/18 04:17 Last Admin: 04/05/18 05:05 Dose: 2 mg MAR Pain Assessment Document 04/05/18 05:05 [facility] (Rec: 04/05/18 05:10 [facility] [id number]) Pain Reassessment Is this a pain reassessment? Yes Presence of Pain Presence of Pain Yes Pain Scale Used Pain Scale Used Numeric Location Pain Location Body Site Abdomen Description Description Constant Intensity of Pain at present 7 Pain Behavior Guarding Alleviating Factors/Management Medication Techniques IVP Administration Document 04/05/18 05:05 [facility] (Rec: 04/05/18 05:10 [facility] [id number]) Charges for Administration # of IVP Administrations 1 Ondansetron HCl (Zofran Inj) 4 mg IVP STAT STA Stop: 04/05/18 04:16 Last Admin: 04/05/18 05:00 Dose: 4 mg IVP Administration Document 04/05/18 05:00 [facility] (Rec: 04/05/18 05:08 [facility] [id number]) Charges for Administration # of IVP Administrations 1 - Transfer of Care Patient signed out to Dr:: Irina Pending Radiology Studies:: CT - Scribe Statement The provider has reviewed the documentation as recorded by the Barbaraibe Paul Rose Provider Barbaraibe Attestation: All medical record entries made by the Yakov were at my direction and personally dictated by me. I have reviewed the chart and agree that the record accurately reflects my personal performance of the history, physical exam, medical decision making, and the department course for this patient. I have also personally directed, reviewed, and agree with the discharge instructions and disposition. Disposition/Present on Arrival - Present on Arrival Any Indicators Present on Arrival: No History of DVT/PE: No History of Uncontrolled Diabetes: No Urinary Catheter: No History of Decub. Ulcer: No History Surgical Site Infection Following: None - Disposition Have Diagnosis and Disposition been Completed?: Yes Diagnosis: Abdominal pain Disposition Time: 07:00 Condition: STABLE Forms: [employer] ([place])
[2018-04-05] MEDS ORDERED: Iohexol 350 MG/100 ML VIAL ONE (05:20)
[2018-04-05 05:32] LABS: BASO # 0.01 K/mm3 (0.0-2.0); BASO % 0.1 % (0.0-3.0); EOS % 0.5 % (1.5-5.0); GRAN # 4.39 (1.4-6.5); HEMOGLOBIN 8.7 g/dL (12.0-16.0); LYMPH # 2.1 (1.2-3.4); LYMPH % 27.5 % (22.0-35.0); MEAN CELL VOLUME 104.4 fl (80.0-105.0); MEAN CORPUSCULAR HEMOGLOBIN 34.5 pg (25.0-35.0); MEAN CORPUSCULAR HGB CONC 33.1 g/dl (31.0-37.0); MEAN PLATELET VOLUME 9.4 fl (7.0-11.0); MONO # 1.1 (0.1-0.6); MONO % 13.9 % (1.0-6.0); RBC 2.52 10^6/uL (3.5-6.1); RED CELL DISTRIBUTION WIDTH 17.8 % (11.5-14.5); WHITE BLOOD COUNT 7.6 10^3/ul (4.5-11.0)
[2018-04-05 05:35] LABS: ALB/GLOB RATIO 1.2 (1.1-1.8); ALBUMIN 3.4 g/dL (3.0-4.8); ALT/SGPT 33 U/L (7-56); AMYLASE 60 U/L (35-125); AST/SGOT 34 U/L (14-36); BLOOD UREA NITROGEN 15 mg/dL (7-21); CALCIUM 9.1 mg/dL (8.4-10.5); GFR AFRICAN-AMERICAN > 60; GFR NON-AFRICAN AMERICAN 59; LIPASE 38 U/L (23-300)
[2018-04-05 06:01] LABS: URINE BILIRUBIN NEGATIVE (NEGATIVE); URINE BLOOD LARGE (NEGATIVE); URINE GLUCOSE (UA) NEGATIVE (NEGATIVE); URINE LEUKOCYTE ESTERASE SMALL Leu/uL (NEGATIVE); URINE PROTEIN NEGATIVE mg/dL (<30 mg/dL); URINE UROBILINOGEN 0.2 E.U./dL (<1 E.U./dL)
[2018-04-05 06:17] LABS: URINE APPEARANCE SL CLOUDY (CLEAR); URINE COLOR YELLOW (YELLOW)
[2018-04-05 06:18] LABS: URINE BACTERIA FEW (NEG); URINE EPITHELIAL CELLS 0 - 2 /hpf (0-5)
--- NOTE | 2018-04-05 07:19 | ED PDOC ---
Physical Exam Vital Signs Temp Pulse Resp BP Pulse Ox 04/05/18 07:27 98.4 F 115 H 18 160/94 H 100 04/05/18 05:53 112 H 17 140/81 99 04/05/18 04:00 98.2 F 112 H 16 161/85 H 100 04/05/18 03:53 17 98 Medical Decision Making ED Course and Treatment: 04/05/18 07:00 Case endorsed to me by Dr. Prescott. 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 Currently pending C T abdomen and pelvis scan. 04/05/18 08:25 On reevaluation, patient states pain is better s/p being given Morphine. CT results explained to patient and she does not want to stay in hospital. Dr. Floyd will be contacted. 04/05/18 08:50 CT abdomen and pelvis: Creator : Richy Marcum MD COMPARISON: 12/24/2014. FINDINGS: LOWER THORAX: Minimal pericardial effusion. Lung bases clear. LIVER: Unremarkable. No gross lesion or ductal dilatation. GALLBLADDER AND BILE DUCTS: Unremarkable. PANCREAS: Unremarkable. No gross lesion or ductal dilatation. SPLEEN: Unremarkable. ADRENALS: Unremarkable. No mass. KIDNEYS AND URETERS: Moderate left hydroureteronephrosis with obstruction of the left proximal ureter which is inseparable from the left retroperitoneal mass. Correlation for a urothelial malignancy versus infection is recommended. VASCULATURE: Unremarkable. No aortic aneurysm. BOWEL: Unremarkable. No obstruction. No gross mural thickening. APPENDIX: Unremarkable. Normal appendix. PERITONEUM: Unremarkable. No free fluid. No free air. LYMPH NODES: Heterogeneous hypodense left retroperitoneal mass measuring 4.8 x 3.4 x 4.8 centimeters with interval enlargement compared the prior examination and which abuts the left psoas muscle suspicious for with adenopathy versus mass versus phlegmon or abscess. BLADDER: Unremarkable. REPRODUCTIVE: 3.8 centimeter left ovarian cyst. BONES: No acute fracture. OTHER FINDINGS: None. IMPRESSION: Heterogeneous hypodense left retroperitoneal mass measuring 4.8 x 3.4 x 4.8 centimeters with interval enlargement compared the prior examination and which abuts the left psoas muscle suspicious for with adenopathy versus mass versus phlegmon or abscess.Moderate left hydroureteronephrosis with obstruction of the left proximal ureter which is inseparable from the left retroperitoneal mass. Correlation for a urothelial malignancy versus infection is recommended. 3.8 centimeter left ovarian cyst. Daughter arrived to ED, states she is not comfortable with the patient going home. She was scheduled for CT abd/pelvis this morning as outpatient. Explained that she had a CT abd/pelvis with IV contrast during this ED admission. 04/05/18 09:[address] Floyd who agrees with emergency department management and will admit patient under his care. Would like Dr. Hernandez for oncology consult, which was ordered. Plan was discussed with patient and daughter who are amenable to admission. - Lab Interpretations Lab Results: 04/05/18 04:55 04/05/18 04:55 Lab Results 04/05/18 05:30: Urine Color Yellow, Urine Appearance Sl cloudy, Urine pH 6.0, Ur Specific [place] 1.010, Urine Protein Negative, Urine Glucose (UA) Negative, Urine Ketones Negative, Urine Blood Large H, Urine Nitrate Negative, Urine Bilirubin Negative, Urine Urobilinogen 0.2, Ur Leukocyte Esterase Small H, Urine RBC 5 - 10, Urine WBC 2 - 5, Ur Epithelial Cells 0 - 2, Urine Bacteria Few 04/05/18 04:55: Sodium 140, Potassium 4.5, Chloride 105, Carbon Dioxide 26, Anion Gap 13, BUN 15, Creatinine 0.9, Est GFR ( Amer) > 60, Est GFR (Non- Af Amer) 59, Random Glucose 94, Calcium 9.1, Magnesium 1.9, Total Bilirubin 0.4 , AST 34, ALT 33, Alkaline Phosphatase 80, Total Protein 6.4, Albumin 3.4, Globulin 2.9, Albumin/Globulin Ratio 1.2, Amylase 60, Lipase 38 04/05/18 04:55: WBC 7.6, RBC 2.52 L, Hgb 8.7 L, Hct 26.3 L, MCV 104.4 D, MCH 34.5, MCHC 33.1, RDW 17.8 H, Plt Count 248, MPV 9.4, Gran % 58.0, Lymph % (Auto ) 27.5, [place] % (Auto) 13.9 H, Eos % (Auto) 0.5 L, Baso % (Auto) 0.1, Gran # 4.39 , Lymph # (Auto) 2.1, [place] # (Auto) 1.1 H, Eos # (Auto) 0.0, Baso # (Auto) 0.01 - RAD Interpretation Radiology Orders: 04/05/18 04:15 ABD & PELVIS IV CONTRAST ONLY [CT] Stat - Medication Orders Current Medication Orders: Sodium Chloride (Sodium Chloride 0.9%) 1,000 mls @ 100 mls/hr IV .Q10H STA Stop: 04/05/18 14:14 Last Admin: 04/05/18 05:10 Dose: 100 mls/hr eMAR Start Stop Document 04/05/18 05:10 [facility] (Rec: 04/05/18 05:10 [facility] [id number]) Intravenous Solution Start Date 04/05/18 Start Time 05:10 End Date 04/05/18 Discontinued Medications Famotidine (Pepcid) 20 mg IVP STAT STA Stop: 04/05/18 04:16 Last Admin: 04/05/18 05:02 Dose: 20 mg IVP Administration Document 04/05/18 05:02 [facility] (Rec: 04/05/18 05:09 [facility] [id number]) Charges for Administration # of IVP Administrations 1 Morphine Sulfate (Morphine) 2 mg IVP STAT STA Stop: 04/05/18 04:17 Last Admin: 04/05/18 05:05 Dose: 2 mg MAR Pain Assessment Document 04/05/18 05:05 [facility] (Rec: 04/05/18 05:10 [facility] [id number]) Pain Reassessment Is this a pain reassessment? Yes Presence of Pain Presence of Pain Yes Pain Scale Used Pain Scale Used Numeric Location Pain Location Body Site Abdomen Description Description Constant Intensity of Pain at present 7 Pain Behavior Guarding Alleviating Factors/Management Medication Techniques IVP Administration Document 04/05/18 05:05 [facility] (Rec: 04/05/18 05:10 [facility] [id number]) Charges for Administration # of IVP Administrations 1 Ondansetron HCl (Zofran Inj) 4 mg IVP STAT STA Stop: 04/05/18 04:16 Last Admin: 04/05/18 05:00 Dose: 4 mg IVP Administration Document 04/05/18 05:00 [facility] (Rec: 04/05/18 05:08 [facility] [id number]) Charges for Administration # of IVP Administrations 1 - Scribe Statement The provider has reviewed the documentation as recorded by the Yakov Jimenez Provider Scribe Attestation: All medical record entries made by the Scribe were at my direction and personally dictated by me. I have reviewed the chart and agree that the record accurately reflects my personal performance of the history, physical exam, medical decision making, and the department course for this patient. I have also personally directed, reviewed, and agree with the discharge instructions and disposition. Disposition/Present on Arrival - Present on Arrival Any Indicators Present on Arrival: No History of DVT/PE: No History of Uncontrolled Diabetes: No Urinary Catheter: No History of Decub. Ulcer: No History Surgical Site Infection Following: None - Disposition Have Diagnosis and Disposition been Completed?: Yes Diagnosis: Abdominal pain Disposition: HOSPITALIZED Disposition Time: 09:18 Patient Plan: Admission Patient Problems: Current Active Problems Problem Status Onset Abdominal pain Acute Condition: STABLE
--- NOTE | 2018-04-05 08:46 | CT ---
Date of service: 04/05/2018 PROCEDURE: CT Abdomen and Pelvis without intravenous contrast HISTORY: difuse abd tenderness - ? obstruction COMPARISON: 12/24/2014. TECHNIQUE: Technique. Contrast dose: Radiation dose: Total exam DLP = mGy-cm. This CT exam was performed using one or more of the following dose reduction techniques: Automated exposure control, adjustment of the mA and/or kV according to patient size, and/or use of iterative reconstruction technique. FINDINGS: LOWER THORAX: Minimal pericardial effusion. Lung bases clear. LIVER: Unremarkable. No gross lesion or ductal dilatation. GALLBLADDER AND BILE DUCTS: Unremarkable. PANCREAS: Unremarkable. No gross lesion or ductal dilatation. SPLEEN: Unremarkable. ADRENALS: Unremarkable. No mass. KIDNEYS AND URETERS: Moderate left hydroureteronephrosis with obstruction of the left proximal ureter which is inseparable from the left retroperitoneal mass. Correlation for a urothelial malignancy versus infection is recommended. VASCULATURE: Unremarkable. No aortic aneurysm. BOWEL: Unremarkable. No obstruction. No gross mural thickening. APPENDIX: Unremarkable. Normal appendix. PERITONEUM: Unremarkable. No free fluid. No free air. LYMPH NODES: Heterogeneous hypodense left retroperitoneal mass measuring 4.8 x 3.4 x 4.8 centimeters with interval enlargement compared the prior examination and which abuts the left psoas muscle suspicious for with adenopathy versus mass versus phlegmon or abscess. BLADDER: Unremarkable. REPRODUCTIVE: 3.8 centimeter left ovarian cyst. BONES: No acute fracture. OTHER FINDINGS: None. IMPRESSION: Heterogeneous hypodense left retroperitoneal mass measuring 4.8 x 3.4 x 4.8 centimeters with interval enlargement compared the prior examination and which abuts the left psoas muscle suspicious for with adenopathy versus mass versus phlegmon or abscess.Moderate left hydroureteronephrosis with obstruction of the left proximal ureter which is inseparable from the left retroperitoneal mass. Correlation for a urothelial malignancy versus infection is recommended. 3.8 centimeter left ovarian cyst.
[2018-04-05] MEDS ORDERED: Morphine 2 mg/ml ISec IVP PRN (10:43)
--- NOTE | 2018-04-05 11:31 | CP.PCM.HP ---
Addendum entered and electronically signed by Shameka Bourgeois DO 04/05/18 15: 46: note error: patient had 10 doses of chemo not one Original Note: <Shameka Bourgeois - Last Filed: 04/05/18 11:22> History of Present Illness - History of Present Illness History of Present Illness: H&P for Cisco Castro PGY3 This is an 87yo female with past medical history of depression/anxiety, dyslipidemia, OA, C.diff colitis, hepatic cyst, L sided hydronephrosis, squamous cell ca (unknown origin) who came to ED for sudden onset of pelvic pain that was located in near her LLQ. It radiates to her umbilicus and back and was 10/10. It woke her up out of her sleep. She denies having any difficulty urinating, dysuria/hematuria, vaginal bleeding, diarrhea, nausea or vomiting. Patient does admit to some constipation. She was supposed to get a PET scan today, but had to go to ED because of the pain. Pain was relieved by morphine. She denies chest pain, shortness of breath, numbness/tingling, weight loss, fever/chills. Patient follow up with Dr. Hernandez as outpatient for onoclogy. Past medical history: depression/anxiety, dyslipidemia, OA, C.diff colitis, hepatic cyst, L sided hydronephrosis, squamous cell ca (unknown origin)- only had one round of chemo gemcitabine Past surgical history: ovarian cyst removal, carpal tunnel surgery Home meds: Reviewed as per MAR Allergies: tetracycline- rash Social history: Denies EtOH, drugs or tobacco use. Family history: Mom- of colon ca age 86 Present on Admission - Present on Admission Any Indicators Present on Admission: No Review of Systems - Review of Systems All systems: reviewed and no additional remarkable complaints except Review of Systems: 12 point ROS reviewed as per HPI and is otherwise negative. 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) - RENAL Hx Chronic Kidney Disease: No Hx Renal (Kidney) Cancer: Yes - ENDOCRINE/METABOLIC Hx Endocrine Disorders: No - HEMATOLOGICAL/ONCOLOGICAL Hx Cancer: Yes (small tumor found in kidney) - INTEGUMENTARY Hx Dermatological Problems: Yes - MUSCULOSKELETAL/RHEUMATOLOGICAL Hx Falls: Yes - GASTROINTESTINAL Hx Diverticulitis: Yes - GENITOURINARY/GYNECOLOGICAL Hx Genitourinary Disorders: Yes - PSYCHIATRIC Hx Anxiety: Yes Hx Emotional Abuse: No Hx Physical Abuse: No Hx Substance Use: No - SURGICAL HISTORY Hx Appendectomy: Yes - ANESTHESIA Hx Anesthesia Reactions: No Hx Malignant Hyperthermia: No Meds Allergies/Adverse Reactions: Allergies Allergy/AdvReac Type Severity Reaction Status Date / Time tetracycline Allergy Severe ANAPHYLAXIS Verified 12/24/17 12:24 Physical Exam - Constitutional Appears: No Acute Distress - Head Exam Head Exam: ATRAUMATIC, NORMAL INSPECTION, NORMOCEPHALIC - Eye Exam Eye Exam: Normal appearance, PERRL Pupil Exam: NORMAL ACCOMODATION, PERRL - ENT Exam ENT Exam: Mucous Membranes Moist - Neck Exam Neck exam: Positive for: Normal Inspection. Negative for: Lymphadenopathy, Tenderness, Thyromegaly - Respiratory Exam Respiratory Exam: Clear to Auscultation Bilateral, NORMAL BREATHING PATTERN. absent: Decreased Breath Sounds, Rales, Rhonchi, Wheezes Additional comments: R chest port in place- clean and dry - Cardiovascular Exam Cardiovascular Exam: REGULAR RHYTHM, +S1, +S2. absent: Gallop, Rubs, Systolic Murmur - GI/Abdominal Exam GI & Abdominal Exam: Normal Bowel Sounds, Soft, Tenderness (mild LLQ and umbilical tenderness). absent: Mass, Rebound, Rigid - Extremities Exam Extremities exam: Positive for: normal capillary refill, pedal edema (trace), pedal pulses present. Negative for: calf tenderness, tenderness - Back Exam Back exam: absent: muscle spasm, paraspinal tenderness, rash noted, tenderness, vertebral tenderness - Neurological Exam Neurological exam: Alert, CN II-XII Intact, Oriented x3 - Psychiatric Exam Psychiatric exam: Normal Affect, Normal Mood - Skin Skin Exam: Dry, Intact, Warm Results - Vital Signs Recent Vital Signs: Last Vital Signs Temp 98.4 F 04/05/18 10:30 Pulse 114 H 04/05/18 10:30 Resp 20 04/05/18 10:30 BP 162/82 H 04/05/18 10:30 Pulse Ox 96 04/05/18 10:30 - Labs Result Diagrams: 04/05/18 04:55 04/05/18 04:55 Assessment & Plan - Assessment and Plan (Free Text) Assessment: This is an 87yo female with past medical history of depression/anxiety, dyslipidemia, OA, C.diff colitis, hepatic cyst, L sided hydronephrosis, squamous cell ca (unknown origin) who was admitted for 1. Pelvic pain - probably secondary to retroperitoneal tumor - CT A/P showed increased growth in tumor 2. Anemia - Multifactorial - can be secondary to hematuria on U/A v. chronic disease - will check iron studies 3. L Hydronephrosis- chronic 4. Depression/anxiety- chronic 5. Constipation Plan: Oncology and GI are on consult. Colace for constipation. Labs and imaging reviewed. Continue Abilify, Remeron and Paxil. Pain is controlled. Patient is tolerating diet. She is on Gi and DVT prophylaxis. Case seen, discussed and reviewed with Dr. Floyd. Cisco Bourgeois PGY3 - Date & Time Date: 04/05/18 Time: 12:05 <Oleg Floyd S - Last Filed: 04/08/18 17:37> Results - Vital Signs Recent Vital Signs: Last Vital Signs Temp 98.2 F 04/08/18 08:06 Pulse 100 H 04/08/18 08:06 Resp 18 04/08/18 08:06 BP 147/82 04/08/18 08:06 Pulse Ox 97 04/08/18 08:06 - Labs Result Diagrams: 04/07/18 06:30 04/07/18 06:30 Assessment & Plan - Assessment and Plan (Free Text) Plan: Pt seen and examined. I have reviewed the note of the medical orderly and agree with it. I have discussed the assessment and plan with the resident. I have reviewed the patient's labs and medications. Pt with abd pain. CT done and reviewed. She will be placed on pain medications. Spoke to daughter.
[2018-04-05 12:26] LABS: IRON 37 ug/dL (45-180); TOTAL IRON BINDING CAPACITY 253 ug/dL (265-497)
[2018-04-05 12:27] LABS: % IRON SATURATION 15 % (20-55)
[2018-04-05] MEDS: Oxycodone/Acetaminophen 5/325 mg Tab PO PRN ×2 (13:09→22:23)
[2018-04-05] MEDS: Morphine 2 mg/ml ISec IVP PRN (14:16)
[2018-04-05] MEDS ORDERED: Pneumococcal 23-Valent Vaccine IM ONE (15:08)
[2018-04-05] MEDS ORDERED: Aritificial Tears (15ml) OU PRN (18:24)
[2018-04-06] MEDS: Morphine 2 mg/ml ISec IVP PRN ×3 (04:32→18:05)
[2018-04-06] MEDS: Oxycodone/Acetaminophen 5/325 mg Tab PO PRN (06:35)
--- NOTE | 2018-04-06 13:49 | CP.PCM.CON ---
<Shad Villaseñor - Last Filed: 04/06/18 13:59> History of Present Illness - History of Present Illness History of Present Illness: PGY5 Initial GI consult Note Ary Hill is a 87yo F with PMHx of C.Diff colitis, HLD, OA, Community- acquired PNA, UTI, Depression, Squamous cell CA (unknown primary), Anxiety here for evaluation of sudden onset of pelvic pain that was located in near her LLQ. It radiates to her umbilicus and back and was 10/10. It woke her up out of her sleep. Pt had an CT abd which revealed retroperitoneal mass vs collection. She had a previously biopsied lesion which revealed metastatic squamous cell carcinoma. Pt denies any difficulty urinating. She does admit to constipation. denies any rectal bleeding. PMHx: C.Diff colitis, HLD, OA, community-acquired PNA, UTI, Depression, Squamous cell CA with unknown primary s/p 1 round of chemo, Anxiety PSHx: Ovarian cyst removal, Carpal tunnel surgery Social Hx: Denies tobacco, denies ETOH, denies illicit drugs Allergy: Tetracycline Past Patient History - Infectious Disease Hx of Infectious Diseases: C.diff - Tetanus Immunizations Tetanus Immunization: Unknown - Past Social History Smoking Status: Former Smoker - CARDIAC Hx Cardiac Disorders: Yes Hx Hypercholesterolemia: Yes Other/Comment: RT subclavian port - PULMONARY Hx Respiratory Disorders: Yes (SMOKED CIGARETTES BEFORE QUIT PK EVERY OTHER DAY) Hx Pneumonia: Yes Other/Comment: quit smoking over 25 yrs ago - NEUROLOGICAL Hx Neurological Disorder: Yes Hx Dizziness: Yes - HEENT Hx HEENT Problems: Yes Hx Cataracts: Yes 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) - RENAL Hx Chronic Kidney Disease: Yes (left kidney ca) Hx Renal (Kidney) Cancer: Yes (dx 11/2017) Other/Comment: 11/26/17 cystoscope, left retrograde pyelogram,unsucessful attempt to insert stent, bladder biopsies: dx left hydronephrosis, squamous cell ca - ENDOCRINE/METABOLIC Hx Endocrine Disorders: No - HEMATOLOGICAL/ONCOLOGICAL Hx Blood Disorders: Yes Hx Cancer: Yes (small tumor found in left kidney) Hx Chemotherapy: Yes (every other week started 10wks ago) Other/Comment: recently dx 11/2017 - INTEGUMENTARY Hx Dermatological Problems: Yes Other/Comment: multiple moles to back, spider veins ble, no toenails to both great toes, hammertoes 2 3 4 5 both feet, dry skin rle - MUSCULOSKELETAL/RHEUMATOLOGICAL Hx Falls: Yes (last fall 1month ago) - GASTROINTESTINAL Hx Gastrointestinal Disorders: Yes Hx Diverticulitis: Yes Other/Comment: irritable bowel, psuedomembranous colitis, Hx c dif 3x's 2011, 10/08/2017, 08/21/2018 - GENITOURINARY/GYNECOLOGICAL Hx Genitourinary Disorders: Yes Hx Urinary Tract Infection: Yes - PSYCHIATRIC Hx Substance Use: No - SURGICAL HISTORY Hx Surgeries: Yes Hx Appendectomy: Yes (ovarian cyst and ap together) Other/Comment: b/l exc benign cluster of breast cysts 1972, lymph node bx, right chest wall vascular access, sigmoidectomy over 10 yrs ago, sx b/l carpal tunnel - ANESTHESIA Hx Anesthesia Reactions: No Hx Malignant Hyperthermia: No Meds Allergies/Adverse Reactions: Allergies Allergy/AdvReac Type Severity Reaction Status Date / Time tetracycline Allergy Severe ANAPHYLAXIS Verified 12/24/17 12:24 - Medications Medications: Current Medications Aripiprazole (Abilify) 5 mg PO [facility] Last Admin: 04/05/18 21:41 Dose: 5 mg Artificial Tears (Artificial Tears) 0 ml OU BID PRN PRN Reason: Dry eyes Last Admin: 04/05/18 21:44 Dose: 2 drop Clonazepam (Klonopin) 1 mg PO QID [facility] PRN Reason: Protocol Last Admin: 04/06/18 09:41 Dose: 1 mg Docusate Sodium (Colace) 100 mg PO BID [facility] Last Admin: 04/06/18 09:39 Dose: 100 mg Mirtazapine (Remeron) 30 mg PO [facility] Last Admin: 04/05/18 21:43 Dose: 30 mg Morphine Sulfate (Morphine) 2 mg IVP Q4 PRN PRN Reason: Pain, severe (8-10) Last Admin: 04/06/18 12:11 Dose: 2 mg Oxycodone/Acetaminophen (Percocet 5/325 Mg Tab) 1 tab PO BID PRN PRN Reason: Pain, moderate (4-7) Stop: 04/08/18 10:31 Last Admin: 04/06/18 06:35 Dose: 1 tab Paroxetine HCl (Paxil) 30 mg PO [facility] Last Admin: 04/05/18 21:43 Dose: 30 mg Valacyclovir HCl (Valtrex) 500 mg PO DAILY [facility] PRN Reason: Protocol Last Admin: 04/06/18 09:41 Dose: 500 mg Physical Exam - Constitutional Appears: Well, No Acute Distress - Head Exam Head Exam: ATRAUMATIC, NORMOCEPHALIC - Eye Exam Eye Exam: Normal appearance - ENT Exam ENT Exam: Mucous Membranes Moist, Normal Exam - Neck Exam Neck exam: Positive for: Normal Inspection - Respiratory Exam Respiratory Exam: Clear to Auscultation Bilateral, NORMAL BREATHING PATTERN. absent: Rales, Rhonchi, Wheezes, Respiratory Distress - Cardiovascular Exam Cardiovascular Exam: REGULAR RHYTHM, +S1, +S2 - GI/Abdominal Exam GI & Abdominal Exam: Normal Bowel Sounds, Soft. absent: Distended, Guarding, Organomegaly, Pulsatile Mass, Rebound, Rigid - Extremities Exam Extremities exam: Negative for: joint swelling, pedal edema - Back Exam Back exam: NORMAL INSPECTION - Neurological Exam Neurological exam: Alert, Oriented x3 - Psychiatric Exam Psychiatric exam: Normal Affect, Normal Mood - Skin Skin Exam: Dry, Intact, Normal Color, Warm Results - Vital Signs Recent Vital Signs: Last Vital Signs Temp 98.5 F 04/06/18 07:59 Pulse 99 H 04/06/18 07:59 Resp 18 04/06/18 07:59 BP 150/77 04/06/18 07:59 Pulse Ox 94 L 04/06/18 07:59 - Labs Result Diagrams: 04/05/18 04:55 04/05/18 04:55 Assessment & Plan - Assessment and Plan (Free Text) Assessment: Ary Hill is a 87yo F with PMHx of C.Diff colitis, HLD, OA, Community- acquired PNA, UTI, Depression, Squamous cell CA (unknown primary), Anxiety here for evaluation of sudden onset of pelvic pain that was located in near her LLQ LLQ pain, periumbilical pain, etiology unknown, DDx: distended bladder, fecal retension Chronic Constipation Fecal impaction? Bladder retention Plan: -start miralax daily -recommend post bladder residual check -diet as tolerated -supportive care -recommend hem/onc -will continue to monitor D/W Dr. gutierrez <Rai Gutierrez V - Last Filed: 04/06/18 21:27> Meds - Medications Medications: Current Medications Aripiprazole (Abilify) 5 mg PO HS [facility] Last Admin: 04/06/18 21:09 Dose: 5 mg Artificial Tears (Artificial Tears) 0 ml OU BID PRN PRN Reason: Dry eyes Last Admin: 04/05/18 21:44 Dose: 2 drop Clonazepam (Klonopin) 1 mg PO QID [facility] PRN Reason: Protocol Last Admin: 04/06/18 21:10 Dose: 1 mg Docusate Sodium (Colace) 100 mg PO BID [facility] Last Admin: 04/06/18 17:15 Dose: 100 mg Mirtazapine (Remeron) 30 mg PO HS [facility] Last Admin: 04/06/18 21:09 Dose: 30 mg Morphine Sulfate (Morphine) 2 mg IVP Q4 PRN PRN Reason: Pain, severe (8-10) Last Admin: 04/06/18 18:05 Dose: 2 mg Oxycodone/Acetaminophen (Percocet 5/325 Mg Tab) 1 tab PO BID PRN PRN Reason: Pain, moderate (4-7) Stop: 04/08/18 10:31 Last Admin: 04/06/18 06:35 Dose: 1 tab Paroxetine HCl (Paxil) 30 mg PO HS [facility] Last Admin: 04/06/18 21:09 Dose: 30 mg Polyethylene Glycol (Miralax) 17 gm PO DAILY [facility] Last Admin: 04/06/18 14:42 Dose: 17 gm Valacyclovir HCl (Valtrex) 500 mg PO DAILY [facility] PRN Reason: Protocol Last Admin: 04/06/18 09:41 Dose: 500 mg Results - Vital Signs Recent Vital Signs: Last Vital Signs Temp 99.5 F 04/06/18 21:18 Pulse 121 H 04/06/18 21:18 Resp 20 04/06/18 21:18 BP 160/84 H 04/06/18 21:18 Pulse Ox 97 04/06/18 21:18 - Labs Result Diagrams: 04/05/18 04:55 04/05/18 04:55 Attending/Attestation - Attestation I have personally seen and examined this patient.: Yes I have fully participated in the care of the patient.: Yes I have reviewed all pertinent clinical information: Yes Notes (Text): This is an addendum to GI consult report dictated by the GI Fellow.The patient was seen and examined earlier. Medical records, lab studies, imagings were reviewed. Last 24 hours events reviewed. Agreed with the above treatment plan as outlined in GI Fellow 's notes the with the addition of the following c/o lower abdominal pain, o/e there was fullness of lower abdomen CT scan was reviewed Large amount of stool present Recommend 1. Stool softeners, MiraLAX sliding. 2. Post void bladder scan to check for residual urine 3. Stool for C. difficile, patient's history of C. d colitis, UTIs in the past 04/06/18 21:23
[2018-04-06] MEDS: POLYETHYLENE GLYCOL 3350 17 GM/Dose PACKET PO SCH (14:42)
[2018-04-07] MEDS: Morphine 2 mg/ml ISec IVP PRN ×2 (00:34→14:54)
--- NOTE | 2018-04-07 00:56 | PN ---
DATE: 04/06/2018 SUBJECTIVE: The patient is 87-year-old, seen and examined, sitting in chair, enjoying her lunch. Complained of generalized weakness, mild shortness of breath, difficulty walking. She has a significant past medical history of C. diff colitis, hepatic cysts, hyperlipidemia, history of depression, history of squamous cell carcinoma, who came to Emergency Room on 04/05/2018 with left lower quadrant pain and had CT scan done that shows left retroperitoneal mass, 4.8 x 3.4 cm with interval enlargement compared with prior examination, suspicious for adenopathy versus mass or abscess. PHYSICAL EXAMINATION: GENERAL: She is awake and alert, able to communicate. VITAL SIGNS: She is afebrile, she has temperature 99.4; pulse 117; respirations 20; blood pressure . LUNGS: Bilateral fair airflow. No rhonchi or crackle. HEART: S1 and S2 audible. ABDOMEN: Soft. Nontender. No rebound. No guarding. NEUROLOGICAL: She is awake, alert, oriented, able to communicate. LABORATORY DATA: WBC 7.6, hemoglobin 8.7, hematocrit 26.3, platelets 248. Chemistry: Sodium 140, potassium 4.5, chloride 105, CO2 of 26, BUN 15, creatinine 0.9, blood sugar of 94, iron 37, TIBC 253, saturation 15%. She has large blood in urine with leukocyte. ASSESSMENT: 1. Left-sided pain, probably secondary to hydronephrosis and retroperitoneal mass. 2. History of Clostridium difficile. 3. Constipation. 4. History of depression. 5. Chronic constipation. 6. Generalized osteoarthritis. The patient had PET scan done in 11/2017, was found to have left pelvic mass adjacent to the anterior margin of the left psoas that was biopsy proven squamous cell carcinoma with unknown origin causing left ureteric obstruction. PLAN: The patient is currently on laxatives, analgesic. She has chronic anemia. She seems to be tolerating her diet. Her kidney function seems to be stable. I will discuss with Dr. Hernandez to make further plan. Carla Magana MD
[2018-04-07 06:28] VITALS: O2SAT 97
[2018-04-07] MEDS: Oxycodone/Acetaminophen 5/325 mg Tab PO PRN (06:45)
[2018-04-07 07:03] LABS: BASO # 0.01 K/mm3 (0.0-2.0); BASO % 0.1 % (0.0-3.0); EOS # 0.1 (0.0-0.7); EOS % 0.9 % (1.5-5.0); GRAN # 5.71 (1.4-6.5); GRAN % 66.1 % (50.0-68.0); HEMOGLOBIN 8.9 g/dL (12.0-16.0); LYMPH # 1.7 (1.2-3.4); LYMPH % 19.7 % (22.0-35.0); MEAN CELL VOLUME 104.2 fl (80.0-105.0); MEAN CORPUSCULAR HEMOGLOBIN 34.1 pg (25.0-35.0); MEAN CORPUSCULAR HGB CONC 32.7 g/dl (31.0-37.0); MEAN PLATELET VOLUME 8.6 fl (7.0-11.0); MONO # 1.1 (0.1-0.6); MONO % 13.2 % (1.0-6.0); RBC 2.61 10^6/uL (3.5-6.1); RED CELL DISTRIBUTION WIDTH 18.1 % (11.5-14.5); WHITE BLOOD COUNT 8.6 10^3/ul (4.5-11.0)
[2018-04-07 07:24] LABS: ALB/GLOB RATIO 1.2 (1.1-1.8); ALBUMIN 3.4 g/dL (3.0-4.8); ALT/SGPT 28 U/L (7-56); AST/SGOT 36 U/L (14-36); BLOOD UREA NITROGEN 11 mg/dL (7-21); CALCIUM 8.9 mg/dL (8.4-10.5); GFR AFRICAN-AMERICAN > 60; GFR NON-AFRICAN AMERICAN > 60
[2018-04-07] MEDS: POLYETHYLENE GLYCOL 3350 17 GM/Dose PACKET PO SCH (09:55)
--- NOTE | 2018-04-07 15:03 | CP.PCM.PN ---
<Shad Villaseñor - Last Filed: 04/07/18 15:07> Subjective - Date & Time of Evaluation Date of Evaluation: 04/07/18 Time of Evaluation: 08:00 - Subjective Subjective: PGY5 GI Follow-up Pt seen and examined bedside Denies any abd pain denies any BM tolerating diet ROS: 12 point ROS conducted, neg other than above Objective - Vital Signs/Intake and Output Vital Signs (last 24 hours): Temp Pulse Resp BP Pulse Ox 99 F 117 H 17 158/81 H 97 04/07/18 06:00 04/07/18 06:00 04/07/18 06:00 04/07/18 06:00 04/07/18 06:00 Intake and Output: 04/07/18 04/07/18 06:59 18:59 Intake Total 620 Balance 620 - Medications Medications: Current Medications Alprazolam (Xanax) 0.5 mg PO TID PRN; Protocol PRN Reason: Anxiety Last Admin: 04/07/18 12:53 Dose: 0.5 mg Aripiprazole (Abilify) 5 mg PO [facility] Last Admin: 04/06/18 21:09 Dose: 5 mg Artificial Tears (Artificial Tears) 0 ml OU BID PRN PRN Reason: Dry eyes Last Admin: 04/05/18 21:44 Dose: 2 drop Docusate Sodium (Colace) 100 mg PO BID [facility] Last Admin: 04/07/18 09:54 Dose: 100 mg Mirtazapine (Remeron) 30 mg PO [facility] Last Admin: 04/06/18 21:09 Dose: 30 mg Morphine Sulfate (Morphine) 2 mg IVP Q4 PRN PRN Reason: Pain, severe (8-10) Last Admin: 04/07/18 00:34 Dose: 2 mg Oxycodone/Acetaminophen (Percocet 5/325 Mg Tab) 1 tab PO BID PRN PRN Reason: Pain, moderate (4-7) Stop: 04/08/18 10:31 Last Admin: 04/07/18 06:45 Dose: 1 tab Paroxetine HCl (Paxil) 30 mg PO [facility] Last Admin: 04/06/18 21:09 Dose: 30 mg Polyethylene Glycol (Miralax) 17 gm PO DAILY [facility] Last Admin: 04/07/18 09:55 Dose: 17 gm - Labs Labs: 04/07/18 06:30 04/07/18 06:30 - Constitutional Appears: Well, No Acute Distress - Head Exam Head Exam: ATRAUMATIC, NORMOCEPHALIC - Eye Exam Eye Exam: Normal appearance Pupil Exam: NORMAL ACCOMODATION - ENT Exam ENT Exam: Mucous Membranes Moist, Normal Exam - Neck Exam Neck Exam: Normal Inspection - Respiratory Exam Respiratory Exam: Clear to Ausculation Bilateral, NORMAL BREATHING PATTERN. absent: Rales, Rhonchi, Wheezes, Respiratory Distress - Cardiovascular Exam Cardiovascular Exam: REGULAR RHYTHM, +S1, +S2 - GI/Abdominal Exam GI & Abdominal Exam: Soft, Normal Bowel Sounds. absent: Firm, Guarding, Rigid, Tenderness, Hernia, Mass, Organomegaly - Extremities Exam Extremities Exam: absent: Joint Swelling, Pedal Edema - Neurological Exam Neurological Exam: Alert, Awake - Psychiatric Exam Psychiatric exam: Normal Affect, Normal Mood - Skin Skin Exam: Dry, Intact, Normal Color, Warm Assessment and Plan - Assessment and Plan (Free Text) Assessment: Ary Hill is a 87yo F with PMHx of C.Diff colitis, HLD, OA, Community- acquired PNA, UTI, Depression, Squamous cell CA (unknown primary), Anxiety here for evaluation of sudden onset of pelvic pain that was located in near her LLQ LLQ pain, periumbilical pain, etiology unknown, DDx: distended bladder, fecal retension Chronic Constipation Fecal impaction? Bladder retention Plan: -increase miralax BID -diet as tolerated -supportive care -recommend hem/onc -will continue to monitor D/W Dr. gutierrez <Rai Gutierrez V - Last Filed: 04/07/18 19:01> Objective - Vital Signs/Intake and Output Vital Signs (last 24 hours): Temp Pulse Resp BP Pulse Ox 99 F 117 H 17 158/81 H 97 04/07/18 06:00 04/07/18 06:00 04/07/18 06:00 04/07/18 06:00 04/07/18 06:00 - Medications Medications: Current Medications Alprazolam (Xanax) 0.5 mg PO TID PRN; Protocol PRN Reason: Anxiety Last Admin: 04/07/18 17:05 Dose: 0.5 mg Aripiprazole (Abilify) 5 mg PO HS [facility] Last Admin: 04/06/18 21:09 Dose: 5 mg Artificial Tears (Artificial Tears) 0 ml OU BID PRN PRN Reason: Dry eyes Last Admin: 04/05/18 21:44 Dose: 2 drop Docusate Sodium (Colace) 100 mg PO BID [facility] Last Admin: 04/07/18 17:05 Dose: 100 mg Mirtazapine (Remeron) 30 mg PO HS [facility] Last Admin: 04/06/18 21:09 Dose: 30 mg Morphine Sulfate (Morphine) 2 mg IVP Q4 PRN PRN Reason: Pain, severe (8-10) Last Admin: 04/07/18 14:54 Dose: 2 mg Oxycodone/Acetaminophen (Percocet 5/325 Mg Tab) 1 tab PO BID PRN PRN Reason: Pain, moderate (4-7) Stop: 04/08/18 10:31 Last Admin: 04/07/18 06:45 Dose: 1 tab Paroxetine HCl (Paxil) 30 mg PO [facility] Last Admin: 04/06/18 21:09 Dose: 30 mg Polyethylene Glycol (Miralax) 17 gm PO BID [facility] Last Admin: 04/07/18 17:05 Dose: 17 gm - Labs Labs: 04/07/18 06:30 04/07/18 06:30 Attending/Attestation - Attestation I have personally seen and examined this patient.: Yes I have fully participated in the care of the patient.: Yes I have reviewed all pertinent clinical information, including history, physical exam and plan: Yes Notes (Text): This is an addendum to GI progress report dictated by the GI Fellow.The patient was seen and examined earlier. Medical records, lab studies, imagings were reviewed. Last 24 hours events reviewed. Agreed with the above treatment plan as outlined in GI Fellow 's notes the with the addition of the following Feels better Significant improvement in abdominal pain No significant bladder residual post void Constipation no bowel movement was on MiraLAX dose nowbeen increased to twice daily History of C. difficile colitis in the past 04/07/18 19:00
--- NOTE | 2018-04-07 17:15 | PN ---
DATE: 04/07/2018 SUBJECTIVE: The patient is 87 years old, seen and examined, complained of feeling anxious. Eating fair. Generalized weakness. Daughter by the bedside. PHYSICAL EXAMINATION: VITAL SIGNS: She has temperature 99, pulse 117, respirations 17, blood pressure 158/81. LUNGS: Bilateral fair airflow. No rhonchi or crackle. HEART: S1 and S2 audible. ABDOMEN: Soft. Nontender. No rebound. No guarding. NEUROLOGICAL: The patient is awake, alert, oriented, communicative. LABORATORY EXAM: WBC is 8.6, hemoglobin 8.9, hematocrit 27.2, platelets 455. Chemistry: Sodium 153, potassium 4.4, chloride 98, CO2 of 27, BUN 11, creatinine 0.8, blood sugar of 105, iron 37, TIBC 253, saturation is 15%. Blood is large, leukocytes small. Blood culture, urine cultures were negative. ASSESSMENT: 1. Left flank pain secondary to retroperitoneal tumor and had mild hydronephrosis. 2. Anxiety disorder. 3. Chronic constipation. 4. Depression. 5. Generalized osteoarthritis. PLAN: The patient's daughter is requesting her Klonopin is not working, we will change it to Xanax 0.5 t.i.d. p.r.n. Continue Remeron and the patient will be reevaluated in the a.m. If stable, will be discharged in the a.m. Carla Magana MD
[2018-04-07] MEDS ORDERED: POLYETHYLENE GLYCOL 3350 17 GM/Dose PACKET PO SCH (18:00)
--- NOTE | 2018-04-07 23:01 | CP.PCM.CON ---
History of Present Illness - History of Present Illness History of Present Illness: Patient is a 87 year old female, well known to me from office, presented to ED with diffuse abdominal pain and constipation. She has been taking senna colace at home . CT abdomen pelvis showed enlargement in retroperitoneal mass to 4.8 cm. Previously around 3 cm. She is on single agent Gemcitabine. Tolerating well. She has bipolar disorder. No fever, cough. Review of Systems - Constitutional Constitutional: As Per HPI - EENT Eyes: absent: As Per HPI, Blind Spots, Blurred Vision, Change in Vision, Decreased Night Vision, Diplopia, Discharge, Dry Eye, Exophthalmos, Floaters, Irritation, Itchy Eyes, Loss of Peripheral Vision, Pain, Photophobia, Requires Corrective Lenses, Sees Flashes, Spots in Vision, Tunnel Vision, Other Visual Disturbances, Loss of Vision, Other Nose/Mouth/Throat: absent: As Per HPI, Epistaxis, Nasal Congestion, Nasal Discharge, Nasal Obstruction, Nasal Trauma, Nose Pain, Post Nasal Drip, Sinus Pain, Sinus Pressure, Bleeding Gums, Change in Voice, Dental Pain, Dry Mouth, Dysphagia, Halitosis, Hoarsness, Lip Swelling, Mouth Lesions, Mouth Pain, Odynophagia, Sore Throat, Throat Swelling, Tongue Swelling, Facial Pain, Neck Pain, Neck Mass, Other - Breasts Breasts: absent: As Per HPI, Change in Shape, Mass, Pain, Nipple Discharge, Nipple Inversion, Skin Changes, Swelling, Other - Cardiovascular Cardiovascular: absent: As Per HPI, Acrocyanosis, Chest Pain, Chest Pain at Rest , Chest Pain with Activity, Claudication, Diaphoresis, Dyspnea, Dyspnea on Exertion, Edema, Irregular Heart Rhythm, Pain Radiating to Arm/Neck/Jaw, Leg Edema, Leg Ulcers, Lightheadedness, Orthopnea, Palpitations, Paroxysmal Nocturnal Dyspnea, Pedal Edema, Radiating Pain, Rapid Heart Rate, Slow Heart Rate, Syncope, Other - Respiratory Respiratory: absent: As Per HPI, Cough, Dyspnea, Hemoptysis, Dyspnea on Exertion , Wheezing, Snoring, Stridor, Pain on Inspiration, Chest Congestion, Excessive Mucous Production, Change in Mucous Color, Pain with Coughing, Other - Gastrointestinal Gastrointestinal: As Per HPI - Genitourinary Genitourinary: absent: As Per HPI, Change in Urinary Stream, Difficulty Urinating, Dysuria, Flank Pain, Hematuria, Pyuria, Nocturia, Urinary Incontinence, Urinary Frequency, Urinary Hesitance, Urinary Urgency, Voiding Freq/Small Amts, Freq UTI, Hx Renal/Bladder Calculi, Hx /Renal Surgery, Bladder Distension, Other - Menstruation Menstruation: absent: As Per HPI, Amenorrhea, Amenorrhea/ Control, Currently Menstual, Cycle <21 Days, Cycle >35 Days, Cycle Variable, Menses 1-7 Days, Menses >/= 8 Days, Menses Variable, Cycle > 4 Weeks Between, No Menses for 6 Months, Heavy Menses, Light Menses, Normal Menses, Spotting Between Cycles , S/P Hysterectomy, Menopausal, Post Menopausal, Premenarche, Abnormal Vaginal Bleeding, Dysmenorrhea, Other - Musculoskeletal Musculoskeletal: absent: As Per HPI, Abnormal Gait, Arthralgias, Atrophy, Back Pain, Deformity, Joint Swelling, Limited Range of Motion, Loss of Height, Muscle Cramps, Muscle Weakness, Myalgias, Neck Pain, Numbness, Radiating Pain into Limb, Stiffness, Tingling, Other - Integumentary Integumentary: absent: As Per HPI, Acne, Alopecia, Bleeding Lesions, Change in Hair, Change in Nails, Change in Pigmentation, Changing Lesions, Dry Skin, Erythema, Furuncle, Hirsutism, Lesions, New Lesions, Non-Healing Lesions, Photosensitivity, Pruritus, Rash, Skin Pain, Skin Ulcer, Sores, Striae, Swelling , Unusual Bruising, Wounds, Jaundice, Other - Neurological Neurological: As Per HPI - Psychiatric Psychiatric: absent: As Per HPI, Abnormal Sleep Pattern, Anhedonia, Anxiety, Auditory Hallucinations, Behavioral Changes, Change in Appetite, Change in Libido, Confusion, Depression, Difficulty Concentrating, Hallucinations, Homicidal Ideation, Hopelessness, Irritability, Memory Loss, Mood Swings, Panic Attacks, Paranoia, Suicidal Ideation, Visual Hallucinations, Tactile Hallucinations, Other - Hematologic/Lymphatic Hematologic: absent: As Per HPI, Easy Bleeding, Easy Bruising, Lymphadenopathy, Other Past Patient History - Infectious Disease Hx of Infectious Diseases: C.diff - Tetanus Immunizations Tetanus Immunization: Unknown - Past Social History Smoking Status: Former Smoker - CARDIAC Hx Cardiac Disorders: Yes Hx Hypercholesterolemia: Yes Other/Comment: RT subclavian port - PULMONARY Hx Respiratory Disorders: Yes (SMOKED CIGARETTES BEFORE QUIT PK EVERY OTHER DAY) Hx Pneumonia: Yes Other/Comment: quit smoking over 25 yrs ago - NEUROLOGICAL Hx Neurological Disorder: Yes Hx Dizziness: Yes - HEENT Hx HEENT Problems: Yes Hx Cataracts: Yes 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) - RENAL Hx Chronic Kidney Disease: Yes (left kidney ca) Hx Renal (Kidney) Cancer: Yes (dx 11/2017) Other/Comment: 11/26/17 cystoscope, left retrograde pyelogram,unsucessful attempt to insert stent, bladder biopsies: dx left hydronephrosis, squamous cell ca - ENDOCRINE/METABOLIC Hx Endocrine Disorders: No - HEMATOLOGICAL/ONCOLOGICAL Hx Blood Disorders: Yes Hx Cancer: Yes (small tumor found in left kidney) Hx Chemotherapy: Yes (every other week started 10wks ago) Other/Comment: recently dx 11/2017 - INTEGUMENTARY Hx Dermatological Problems: Yes Other/Comment: multiple moles to back, spider veins ble, no toenails to both great toes, hammertoes 2 3 4 5 both feet, dry skin rle - MUSCULOSKELETAL/RHEUMATOLOGICAL Hx Falls: Yes (last fall 1month ago) - GASTROINTESTINAL Hx Gastrointestinal Disorders: Yes Hx Diverticulitis: Yes Other/Comment: irritable bowel, psuedomembranous colitis, Hx c dif 3x's 2011, 10/08/2017, 08/21/2018 - GENITOURINARY/GYNECOLOGICAL Hx Genitourinary Disorders: Yes Hx Urinary Tract Infection: Yes - PSYCHIATRIC Hx Substance Use: No - SURGICAL HISTORY Hx Surgeries: Yes Hx Appendectomy: Yes (ovarian cyst and ap together) Other/Comment: b/l exc benign cluster of breast cysts 1972, lymph node bx, right chest wall vascular access, sigmoidectomy over 10 yrs ago, sx b/l carpal tunnel - ANESTHESIA Hx Anesthesia Reactions: No Hx Malignant Hyperthermia: No Meds Allergies/Adverse Reactions: Allergies Allergy/AdvReac Type Severity Reaction Status Date / Time tetracycline Allergy Severe ANAPHYLAXIS Verified 12/24/17 12:24 - Medications Medications: Current Medications Alprazolam (Xanax) 0.5 mg PO TID PRN; Protocol PRN Reason: Anxiety Last Admin: 04/07/18 17:05 Dose: 0.5 mg Aripiprazole (Abilify) 5 mg PO HS EZEQUIEL Last Admin: 04/06/18 21:09 Dose: 5 mg Artificial Tears (Artificial Tears) 0 ml OU BID PRN PRN Reason: Dry eyes Last Admin: 04/05/18 21:44 Dose: 2 drop Docusate Sodium (Colace) 100 mg PO BID [facility] Last Admin: 04/07/18 17:05 Dose: 100 mg Mirtazapine (Remeron) 30 mg PO [facility] Last Admin: 04/06/18 21:09 Dose: 30 mg Morphine Sulfate (Morphine) 2 mg IVP Q4 PRN PRN Reason: Pain, severe (8-10) Last Admin: 04/07/18 14:54 Dose: 2 mg Oxycodone/Acetaminophen (Percocet 5/325 Mg Tab) 1 tab PO BID PRN PRN Reason: Pain, moderate (4-7) Stop: 04/08/18 10:31 Last Admin: 04/07/18 06:45 Dose: 1 tab Paroxetine HCl (Paxil) 30 mg PO [facility] Last Admin: 04/06/18 21:09 Dose: 30 mg Polyethylene Glycol (Miralax) 17 gm PO BID [facility] Last Admin: 04/07/18 17:05 Dose: 17 gm Physical Exam - Constitutional Appears: Non-toxic - Head Exam Head Exam: ATRAUMATIC, NORMAL INSPECTION, NORMOCEPHALIC - Eye Exam Eye Exam: Normal appearance Pupil Exam: NORMAL ACCOMODATION - ENT Exam ENT Exam: Mucous Membranes Moist, Normal Exam - Neck Exam Neck exam: Positive for: Normal Inspection - Respiratory Exam Respiratory Exam: Clear to Auscultation Bilateral, NORMAL BREATHING PATTERN - Cardiovascular Exam Cardiovascular Exam: REGULAR RHYTHM, +S1, +S2 - GI/Abdominal Exam GI & Abdominal Exam: Normal Bowel Sounds, Soft - Extremities Exam Extremities exam: Positive for: normal inspection - Neurological Exam Neurological exam: CN II-XII Intact, Normal Gait, Oriented x3 - Skin Skin Exam: Normal Color, Warm Results - Vital Signs Recent Vital Signs: Last Vital Signs Temp 98.3 F 04/07/18 21:15 Pulse 83 04/07/18 21:15 Resp 18 04/07/18 21:15 BP 141/78 04/07/18 21:15 Pulse Ox 97 04/07/18 21:15 - Labs Result Diagrams: 04/07/18 06:30 04/07/18 06:30 Labs: Laboratory Results - last 24 hr 04/06/18 04/07/18 04/07/18 23:44 06:30 06:30 WBC 8.6 RBC 2.61 L Hgb 8.9 L Hct 27.2 L MCV 104.2 MCH 34.1 MCHC 32.7 RDW 18.1 H Plt Count 455 H MPV 8.6 Gran % 66.1 Lymph % (Auto) 19.7 L [place] % (Auto) 13.2 H Eos % (Auto) 0.9 L Baso % (Auto) 0.1 Gran # 5.71 Lymph # (Auto) 1.7 [place] # (Auto) 1.1 H Eos # (Auto) 0.1 Baso # (Auto) 0.01 Sodium 133 Potassium 4.4 Chloride 98 Carbon Dioxide 27 Anion Gap 12 BUN 11 Creatinine 0.8 Est GFR ( Amer) > 60 Est GFR (Non-Af Amer) > 60 POC Glucose (mg/dL) 103 Random Glucose 105 Calcium 8.9 Total Bilirubin 0.3 AST 36 ALT 28 Alkaline Phosphatase 82 Total Protein 6.3 Albumin 3.4 Globulin 2.9 Albumin/Globulin Ratio 1.2 Assessment & Plan - Assessment and Plan (Free Text) Assessment: 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 On single agent Gemcitabine. Slight increase in size of mass to 4.8 cm. I will discuss with daughter about this and change in chemo regimen. 2. Abdominal pain : might be related to chronic constipation. continue senna colace BID. Ct abdomen reviewed. oxycodone 5 mf Q6 prn. 3. Anemia : iron studies, B12, folate to be sent. 4. Bipolar : continue current meds. Thank you DR. Floyd for allowing us to participate in her care. - Date & Time Date: 04/05/18 Time: 18:00
[2018-04-07] MEDS ORDERED: oxyCODONE 5 mg Immediate Release Tab PO PRN (23:02)
--- NOTE | 2018-04-07 23:16 | CP.PCM.PN ---
Subjective - Date & Time of Evaluation Date of Evaluation: 04/07/18 Time of Evaluation: 11:00 - Subjective Subjective: Complaining of slight abdominal pain. last bowel movement was 2 days ago. Apatite decreased. Weight has been stable for past few months. Anemia , iron deficiency. No nausea, vomiting. Objective - Vital Signs/Intake and Output Vital Signs (last 24 hours): Temp Pulse Resp BP Pulse Ox 98.3 F 83 18 141/78 97 04/07/18 21:15 04/07/18 21:15 04/07/18 21:15 04/07/18 21:15 04/07/18 21:15 Intake and Output: 04/07/18 04/08/18 18:59 06:59 Intake Total 660 Balance 660 - Medications Medications: Current Medications Alprazolam (Xanax) 0.5 mg PO TID PRN; Protocol PRN Reason: Anxiety Last Admin: 04/07/18 17:05 Dose: 0.5 mg Aripiprazole (Abilify) 5 mg PO [facility] Last Admin: 04/06/18 21:09 Dose: 5 mg Artificial Tears (Artificial Tears) 0 ml OU BID PRN PRN Reason: Dry eyes Last Admin: 04/05/18 21:44 Dose: 2 drop Docusate Sodium (Colace) 100 mg PO BID [facility] Last Admin: 04/07/18 17:05 Dose: 100 mg Mirtazapine (Remeron) 30 mg PO [facility] Last Admin: 04/06/18 21:09 Dose: 30 mg Morphine Sulfate (Morphine) 2 mg IVP Q4 PRN PRN Reason: Pain, severe (8-10) Last Admin: 04/07/18 14:54 Dose: 2 mg Oxycodone HCl (Oxycodone Immediate Release Tab) 5 mg PO Q6H PRN PRN Reason: Pain, moderate (4-7) Paroxetine HCl (Paxil) 30 mg PO [facility] Last Admin: 04/06/18 21:09 Dose: 30 mg Polyethylene Glycol (Miralax) 17 gm PO BID [facility] Last Admin: 04/07/18 17:05 Dose: 17 gm - Labs Labs: 04/07/18 06:30 04/07/18 06:30 - Constitutional Appears: Well, Non-toxic - Head Exam Head Exam: ATRAUMATIC, NORMAL INSPECTION, NORMOCEPHALIC - Eye Exam Eye Exam: Normal appearance - ENT Exam ENT Exam: Mucous Membranes Dry, Mucous Membranes Moist - Neck Exam Neck Exam: Normal Inspection - Respiratory Exam Respiratory Exam: Clear to Ausculation Bilateral, NORMAL BREATHING PATTERN - Cardiovascular Exam Cardiovascular Exam: REGULAR RHYTHM, +S1, +S2 - GI/Abdominal Exam GI & Abdominal Exam: Soft, Normal Bowel Sounds - Extremities Exam Extremities Exam: Normal Inspection - Neurological Exam Neurological Exam: Alert, Awake, Normal Gait, Oriented x3 - Psychiatric Exam Psychiatric exam: Flat Affect - Skin Skin Exam: Normal Color Assessment and Plan - Assessment and Plan (Free Text) Assessment: 1. stage IV squamus cell cancer : continue chemo upon discharge from hospital. 2. iron deficiency anemia : IV iron will be continued as out patient. She cannot tolerate PO iron due to chronic constipation. 3. abdominal pain : oxycodone 5 mg Q6 hr prn. 4. renal : functions stable. 5. Discussed with daughter regarding discharge, she wants her to stay today, can be discharged Sunday if ok with primary team.
[2018-04-08 08:07] VITALS: BP 147/82; PULSE 100; RESP 18; TEMP 98.2
--- NOTE | 2018-04-08 12:05 | CP.PCM.PN ---
Subjective - Date & Time of Evaluation Date of Evaluation: 04/08/18 Time of Evaluation: 06:45 - Subjective Subjective: Charles Borrero DO, PGY-2: GI Progress Note for Dr. Gutierrez Patient was seen and examined at bedside. She passing ten bowel movements yesterday. She denies any blood per rectum, diarhea, or vomiting. She reports having a band like pain located infraumbilically. She states the pain has decreased in severity from a 10/10 to a 3/10 today. Otherwise, chart review indicates no adverse events overnight. Objective - Vital Signs/Intake and Output Vital Signs (last 24 hours): Temp Pulse Resp BP Pulse Ox 98.2 F 100 H 18 147/82 97 04/08/18 08:06 04/08/18 08:06 04/08/18 08:06 04/08/18 08:06 04/08/18 08:06 Intake and Output: 04/08/18 04/08/18 06:59 18:59 Intake Total 780 Balance 780 - Labs Labs: 04/07/18 06:30 04/07/18 06:30 - Constitutional Appears: Well, Non-toxic - Head Exam Head Exam: ATRAUMATIC, NORMOCEPHALIC - Eye Exam Eye Exam: EOMI, Normal appearance - ENT Exam ENT Exam: Mucous Membranes Moist - Neck Exam Neck Exam: Normal Inspection - Respiratory Exam Respiratory Exam: Clear to Ausculation Bilateral, NORMAL BREATHING PATTERN. absent: Accessory Muscle Use - Cardiovascular Exam Cardiovascular Exam: RRR, +S1, +S2 - GI/Abdominal Exam GI & Abdominal Exam: Soft, Normal Bowel Sounds. absent: Guarding, Tenderness, Rebound - Extremities Exam Extremities Exam: Normal Inspection. absent: Calf Tenderness - Neurological Exam Neurological Exam: Alert, Awake - Psychiatric Exam Psychiatric exam: Normal Affect, Normal Mood - Skin Skin Exam: Dry, Intact, Normal Color, Warm Assessment and Plan - Assessment and Plan (Free Text) Assessment: 87 year old female with a past medical hsitory of C. difficile colitis, hyperlipidemia, Community-acquired PNA, UTI, Depression, Squamous cell CA ( unknown primary), Anxiety here for evaluation of sudden onset of pelvic pain that was located in near her LLQ. She had been constipated for the past four days. CT of abdomen and pelvis showed a heterogeneous hypodense left retroperitoneal mass measuring 4.8 x 3.4 x 4.8 centimeters with interval enlargement compared the prior examination and which abuts the left psoas muscle suspicious for with adenopathy versus mass versus phlegmon or abscess. Moderate left hydroureteronephrosis with obstruction of the left proximal ureter which is inseparable from the left retroperitoneal mass. Correlation for a urothelial malignancy versus infection is recommended. Plan: Patient had multiple, normal BM yesterday after her Miralax was increased to 17 grams, twice a day. She is being discharged. She is stable from a GI perspective. She should follow up in the office for any new or worsening complaints. Recommend close follow up with PMD as well hematology and oncology. As always, thank you for allowing us to participate in the care of your patient Case was reviewed and discussed with attending physician, Dr. Gutierrez.
--- NOTE | 2018-04-08 16:01 | DS ---
HISTORY OF PRESENT ILLNESS: The patient has no complaints of any headaches or dizziness. She says she does have abdominal pain, it is controlled with pain medications. She was seen by Dr. Gutierrez and cleared for discharge. She has no headaches or dizziness. No nausea. She has been eating. PHYSICAL EXAMINATION: VITAL SIGNS: Temperature is 98.2, pulse of 100, blood pressure is 147/82, respirations 18, O2 saturation is 97%. GENERAL: The patient is lying in bed, flat, comfortable. HEENT: No oral lesion. Anicteric sclerae. Moist mucosa. NECK: No JVD, adenopathy, or thyromegaly. CARDIOVASCULAR: S1 and S2, regular. No murmurs, rubs, or gallops. LUNGS: Clear to auscultation bilaterally. No wheeze, rales, or rhonchi. ABDOMEN: Bowel sounds are positive, soft, nontender and nondistended. EXTREMITIES: No cyanosis, clubbing or edema. ASSESSMENT: 1. Anxiety disorder. 2. Chronic constipation. 3. Squamous cell carcinoma of unknown primary of the abdomen. 4. Left-sided hydronephrosis, chronic, secondary to squamous cell carcinoma. 5. Hepatic cyst. 6. Osteoarthritis. 7. Dyslipidemia. 8. History of Clostridium difficile. 9. TETRACYCLINE ALLERGY. PLAN: The patient is currently comfortable. She is on Abilify, this will be continued. She is on oxycodone for pain, she will take this and continue. She is on Remeron. She is on Xanax as needed. She is on a heart-healthy diet. CONDITION: Stable. ACTIVITIES: Increase as tolerated. Oleg Floyd MD
== END 2018-04-08 11:37 | disposition home or self-care (01) | DRG 844 ==
LOC: ED 03:53 → ERH 09:18 → 5RSO 10:43
PROVIDERS: ADMIT Internal Medicine Nephrology; ATTEND Internal Medicine Nephrology
DX: C80.1 Malignant (primary) neoplasm, unspecified (principal); N13.6 Pyonephrosis; D50.9 Iron deficiency anemia, unspecified; D63.8 Anemia in other chronic diseases classified elsewhere; E78.00 Pure hypercholesterolemia, unspecified; E78.5 Hyperlipidemia, unspecified; F31.9 Bipolar disorder, unspecified; F41.9 Anxiety disorder, unspecified; H91.91 Unspecified hearing loss, right ear; K58.9 Irritable bowel syndrome, unspecified; K59.09 Other constipation; K76.89 Other specified diseases of liver; M15.9 Polyosteoarthritis, unspecified; Z85.528 Personal history of other malignant neoplasm of kidney; N83.202 Unspecified ovarian cyst, left side; Z80.0 Family history of malignant neoplasm of digestive organs; Z86.19 Personal history of other infectious and parasitic diseases; Z87.01 Personal history of pneumonia (recurrent); Z87.440 Personal history of urinary (tract) infections; Z87.891 Personal history of nicotine dependence; Z88.1 Allergy status to other antibiotic agents; Z90.49 Acquired absence of other specified parts of digestive tract

== ENCOUNTER 2018-04-24 23:35 | Observation (INO) | payer MEDICARE, OTHER ==
[2018-04-24 23:45] VITALS: BMI 18.8
--- NOTE | 2018-04-24 23:49 | ED PDOC ---
Arrival/HPI - General Time Seen by Provider: 04/24/18 23:39 Historian: Patient, EMS - History of Present Illness Narrative History of Present Illness (Text): 04/24/18 23:48 Ary Marshall is an 87 year old female, whose past medical history includes depression, anxiety, dyslipidemia, osteoarthritis, C. diff, colitis, and squamous cell cancer, who presents to the emergency department brought in by EMS complaining of dizziness. Patient states she has been experiencing dizziness and generalized weakness today. Patient denies any fever, chest pain, shortness of breath, abdominal pain, nausea, vomiting, urinary symptoms, back pain, neck pain, headache, or any other complaints. Symptom Onset: Gradual Symptom Course: Unchanged Activities at Onset: Light Context: Home Past Medical History - Provider Review Nursing Documentation Reviewed: Yes - Infectious Disease Hx of Infectious Diseases: C.diff - Tetanus Immunization Tetanus Immunization: Unknown - Reproductive Menopause: Yes - Cardiac Hx Cardiac Disorders: Yes Other/Comment: RT subclavian port - Pulmonary Hx Respiratory Disorders: Yes (SMOKED CIGARETTES BEFORE QUIT PK EVERY OTHER DAY) Hx Pneumonia: Yes Other/Comment: quit smoking over 25 yrs ago - Neurological Hx Neurological Disorder: Yes Hx Dizziness: Yes - HEENT Hx HEENT Disorder: Yes Hx Cataracts: Yes 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) - Renal Hx Renal Disorder: Yes (left kidney ca) Hx Renal Cancer: Yes (dx 11/2017) Other/Comment: 11/26/17 cystoscope, left retrograde pyelogram,unsucessful attempt to insert stent, bladder biopsies: dx left hydronephrosis, squamous cell ca - Endocrine/Metabolic Hx Endocrine Disorders: No - Hematological/Oncological Hx Blood Disorders: Yes Hx Cancer: Yes (small tumor found in left kidney) Hx Chemotherapy: Yes (every other week started 10wks ago) Other/Comment: recently dx 11/2017 - Integumentary Hx Dermatological Disorder: Yes Other/Comment: multiple moles to back, spider veins ble, no toenails to both great toes, hammertoes 2 3 4 5 both feet, dry skin rle - Musculoskeletal/Rheumatological Hx Falls: Yes (last fall 1month ago) - Gastrointestinal Hx Gastrointestinal Disorders: Yes Hx Diverticulitis: Yes Other/Comment: irritable bowel, psuedomembranous colitis, Hx c dif 3x's 2011, 10/08/2017, 08/21/2018 - Genitourinary/Gynecological Hx Genitourinary Disorders: Yes Hx Urinary Tract Infection: Yes - Psychiatric Hx Psychophysiologic Disorder: Yes Hx Anxiety: Yes Hx Bipolar Disorder: Yes Hx Depression: Yes Hx Emotional Abuse: No Hx Panic Disorder: Yes Hx Physical Abuse: No Hx Substance Use: No - Past Surgical History Past Surgical History: Non-Contributing - Surgical History Hx Appendectomy: Yes (ovarian cyst and ap together) Other/Comment: b/l exc benign cluster of breast cysts 1972, lymph node bx, right chest wall vascular access, sigmoidectomy over 10 yrs ago, sx b/l carpal tunnel - Anesthesia Hx Anesthesia: Yes Hx Anesthesia Reactions: No Hx Malignant Hyperthermia: No - Suicidal Assessment Feels Threatened In Home Enviroment: No Family/Social History - Physician Review Nursing Documentation Reviewed: Yes Family/Social History: Unknown Family HX Smoking Status: Former Smoker Hx Alcohol Use: No Hx Substance Use: No Hx Substance Use Treatment: No Allergies/Home Meds Allergies/Adverse Reactions: Allergies tetracycline Allergy (Severe, Verified 04/24/18 23:49) ANAPHYLAXIS Home Medications: Home Meds Medication Instructions Recorded Confirmed ARIPiprazole [Abilify] 5 mg PO HS 12/24/17 04/05/18 Clonazepam [Klonopin] 1 mg PO QID 12/24/17 04/05/18 Mirtazapine [Remeron] 30 mg PO HS 12/24/17 04/05/18 PARoxetine [Paxil] 30 mg PO HS 12/24/17 04/05/18 Lactulose 20 gm PO DAILY 04/05/18 04/05/18 valACYclovir [Valtrex] 500 mg PO DAILY 04/05/18 04/05/18 Review of Systems - Physician Review All systems were reviewed & negative as marked: Yes - Review of Systems Constitutional: Other (+generalized weakness). absent: Fevers Eyes: Normal ENT: Normal Respiratory: Normal. absent: SOB Cardiovascular: Normal. absent: Chest Pain Gastrointestinal: Normal. absent: Abdominal Pain, Diarrhea, Nausea, Vomiting Genitourinary Female: Normal. absent: Dysuria, Frequency, Hematuria, Urine Output Changes Musculoskeletal: Normal. absent: Back Pain, Neck Pain Skin: Normal. absent: Rash Neurological: Dizziness Endocrine: Normal Hemo/Lymphatic: Normal Psychiatric: Normal Physical Exam Vital Signs Reviewed: Yes Vital Signs Pulse Resp BP Pulse Ox 08/16/18 06:47 116 H 18 149/79 98 04/25/18 06:14 120 H 18 98 04/25/18 04:05 118 H 20 167/90 H 98 04/25/18 01:48 113 H 18 147/80 97 04/24/18 23:45 126 H 16 157/87 H 97 Temperature: Afebrile Blood Pressure: Hypertensive Pulse: Tachycardic Respiratory Rate: Normal Appearance: Positive for: Cachectic Pain Distress: None Mental Status: Positive for: Alert and Oriented X 3 - Systems Exam Head: Present: Atraumatic, Normocephalic Pupils: Present: PERRL Extroacular Muscles: Present: EOMI Conjunctiva: Present: Normal Mouth: Present: Moist Mucous Membranes Neck: Present: Normal Range of Motion Respiratory/Chest: Present: Clear to Auscultation, Good Air Exchange. No: Respiratory Distress, Accessory Muscle Use Cardiovascular: Present: Regular Rate and Rhythm, Normal S1, S2. No: Murmurs Abdomen: No: Tenderness, Distention, Peritoneal Signs Upper Extremity: Present: Normal Inspection. No: Cyanosis, Edema Lower Extremity: Present: Normal Inspection. No: Edema Neurological: Present: GCS=15, CN II-XII Intact, Speech Normal Skin: Present: Warm, Dry, Normal Color. No: Rashes Medical Decision Making ED Course and Treatment: 04/24/18 23:49 Impression: 87 year old female complaining of dizziness and generalized weakness. Plan: -- CT Head w/o contrast -- EKG -- Chest X-Ray -- Labs, troponin -- IV fluids -- Zofran -- Reassess and disposition Prior Visits: Notes and results from previous visits were reviewed. Progress Notes: Reviewed EKG, sinus tachycardia at [address] bpm[address] Non-specific ST/T wave changes. 04/25/18 02:25 Reviewed radiology, Chest X-Ray shows no acute processes. CT Head shows: Brain: Generalized volume loss. There is mild nonspecific periventricular and deep white matter disease. No hemorrhage. Ventricles: No acute findings. No ventriculomegaly. Bones/joints: No acute findings. No acute fracture. Soft tissues: No acute findings. Sinuses: No acute findings. No acute sinusitis. Mastoid air cells: No acute findings. No mastoid effusion. IMPRESSION: No acute findings. 04/25/18 03:[address] Floyd, who is aware and agrees with plan. Accepts pt in to his service. Pt will go to Telemetry observation for dizziness and weakness. - Lab Interpretations Lab Results: 04/25/18 00:38 04/25/18 01:40 Lab Results 04/25/18 01:40: Sodium 135, Potassium 4.2, Chloride 98, Carbon Dioxide 25, Anion Gap 16, BUN 16, Creatinine 1.0, Est GFR ( Amer) > 60, Est GFR (Non- Af Amer) 52, Random Glucose 108, Calcium 9.5, Total Bilirubin 0.3, AST 23, ALT 19, Alkaline Phosphatase 94, Troponin I < 0.01, Total Protein 7.0, Albumin 3.6, Globulin 3.3, Albumin/Globulin Ratio 1.1 04/25/18 00:38: WBC 9.3, RBC 3.08 L, Hgb 10.5 L, Hct 32.5 L, MCV 105.5 H, MCH 34.1, MCHC 32.3, RDW 17.6 H, Plt Count 352, MPV 9.9, Gran % 65.6, Lymph % (Auto ) 15.1 L, Gordon % (Auto) 17.2 H, Eos % (Auto) 1.6, Baso % (Auto) 0.5, Gran # 6.12 , Lymph # (Auto) 1.4, Gordon # (Auto) 1.6 H, Eos # (Auto) 0.2, Baso # (Auto) 0.05 I have reviewed the lab results: Yes - RAD Interpretation Radiology Orders: 04/24/18 23:50 HEAD W/O CONTRAST [CT] Stat 04/24/18 23:51 CHEST PORTABLE [RAD] Stat Director Of Institutional Giving: ED Physician, Radiologist - EKG Interpretation Interpreted by ED Physician: Yes Type: 12 lead EKG - Medication Orders Current Medication Orders: Acetaminophen (Tylenol 325mg Tab) 650 mg PO Q4H PRN PRN Reason: Pain, Mild (1-3) Clonazepam (Klonopin) 1 mg PO QID PRN; Protocol PRN Reason: Anxiety Sodium Chloride (Sodium Chloride 0.9%) 1,000 mls @ 80 mls/hr IV .[id number] EZEQUIEL Last Admin: 04/25/18 01:48 Dose: 80 mls/hr eMAR Start Stop Document 04/25/18 01:48 SS (Rec: 04/25/18 01:48 SS [id number]) Intravenous Solution Start Date 04/25/18 Start Time 01:48 Sodium Chloride (Sodium Chloride 0.9%) 1,000 mls @ 100 mls/hr IV .Q10H STA Stop: 04/25/18 13:59 Last Admin: 04/25/18 06:34 Dose: 100 mls/hr eMAR Start Stop Document 04/25/18 06:34 SS (Rec: 04/25/18 06:35 SS [id number]) Intravenous Solution Start Date 04/25/18 Start Time 06:35 Mirtazapine (Remeron) 30 mg PO HS EZEQUIEL Paroxetine HCl (Paxil) 30 mg PO HS EZEQUIEL Discontinued Medications Acetaminophen (Tylenol 325mg Tab) 650 mg PO STAT STA Stop: 04/25/18 03:42 Last Admin: 04/25/18 06:33 Dose: 650 mg MAR Pain/Vitals Document 04/25/18 06:33 SS (Rec: 04/25/18 06:34 SS [id number]) Pain Reassessment Is This A Pain ReAssessment? No Presence of Pain Presence of Pain Yes Pain Scale Used Pain Scale Used Numeric Location Pain Location Body Appeals And Generalist Clerk Ondansetron HCl (Zofran Inj) 4 mg IVP STAT STA Stop: 04/24/18 23:52 Last Admin: 04/25/18 01:47 Dose: 4 mg IVP Administration Document 04/25/18 01:47 SS (Rec: 04/25/18 01:48 SS [id number]) Charges for Administration # of IVP Administrations 1 - Scribe Statement The provider has reviewed the documentation as recorded by the Yakov Nieto Provider Scribe Attestation: All medical record entries made by the Yakov were at my direction and personally dictated by me. I have reviewed the chart and agree that the record accurately reflects my personal performance of the history, physical exam, medical decision making, and the department course for this patient. I have also personally directed, reviewed, and agree with the discharge instructions and disposition. Disposition/Present on Arrival - Present on Arrival Any Indicators Present on Arrival: No History of DVT/PE: No History of Uncontrolled Diabetes: No Urinary Catheter: No History of Decub. Ulcer: No History Surgical Site Infection Following: None - Disposition Have Diagnosis and Disposition been Completed?: Yes Diagnosis: Dehydration, Dizziness Disposition: HOSPITALIZED Disposition Time: 03:00 Condition: FAIR
[2018-04-25 00:50] LABS: BASO # 0.05 K/mm3 (0.0-2.0); BASO % 0.5 % (0.0-3.0); EOS # 0.2 (0.0-0.7); EOS % 1.6 % (1.5-5.0); GRAN # 6.12 (1.4-6.5); GRAN % 65.6 % (50.0-68.0); HEMOGLOBIN 10.5 g/dL (12.0-16.0); LYMPH # 1.4 (1.2-3.4); LYMPH % 15.1 % (22.0-35.0); MEAN CELL VOLUME 105.5 fl (80.0-105.0); MEAN CORPUSCULAR HEMOGLOBIN 34.1 pg (25.0-35.0); MEAN CORPUSCULAR HGB CONC 32.3 g/dl (31.0-37.0); MEAN PLATELET VOLUME 9.9 fl (7.0-11.0); MONO # 1.6 (0.1-0.6); MONO % 17.2 % (1.0-6.0); RBC 3.08 10^6/uL (3.5-6.1); RED CELL DISTRIBUTION WIDTH 17.6 % (11.5-14.5); WHITE BLOOD COUNT 9.3 10^3/ul (4.5-11.0)
[2018-04-25] MEDS: Sodium Chloride 0.9% 1,000 ML IV SCH ×3 (01:48→18:14)
[2018-04-25 02:27] LABS: TROPONIN I < 0.01 ng/mL
[2018-04-25 02:42] LABS: ALB/GLOB RATIO 1.1 (1.1-1.8); ALBUMIN 3.6 g/dL (3.0-4.8); ALT/SGPT 19 U/L (7-56); AST/SGOT 23 U/L (14-36); BLOOD UREA NITROGEN 16 mg/dL (7-21); CALCIUM 9.5 mg/dL (8.4-10.5); GFR AFRICAN-AMERICAN > 60; GFR NON-AFRICAN AMERICAN 52
[2018-04-25] MEDS ORDERED: Sodium Chloride 0.9% 1,000 ML IV STA (04:00)
--- NOTE | 2018-04-25 08:13 | CT ---
Date of service: 04/25/2018 PROCEDURE: CT HEAD WITHOUT CONTRAST. HISTORY: dizzy COMPARISON: 01/15/2017 TECHNIQUE: Axial computed tomography images were obtained through the head/brain without intravenous contrast. Radiation dose: Total exam DLP = 790 mGy-cm. This CT exam was performed using one or more of the following dose reduction techniques: Automated exposure control, adjustment of the mA and/or kV according to patient size, and/or use of iterative reconstruction technique. FINDINGS: HEMORRHAGE: No intracranial hemorrhage. BRAIN: No mass effect or edema. No atrophy or chronic microvascular ischemic changes. VENTRICLES: Unremarkable. No hydrocephalus. CALVARIUM: Unremarkable. PARANASAL SINUSES: Unremarkable as visualized. No significant inflammatory changes. MASTOID AIR CELLS: Unremarkable as visualized. No inflammatory changes. OTHER FINDINGS: The report concurs with the preliminary [facility] report IMPRESSION: No acute findings
--- NOTE | 2018-04-25 09:19 | RAD ---
Date of service: 04/25/2018 HISTORY: dizzy COMPARISON: 10/22/2017 FINDINGS: LUNGS: No active pulmonary disease. PLEURA: No significant pleural effusion identified, no pneumothorax apparent. CARDIOVASCULAR: Normal. OSSEOUS STRUCTURES: No significant abnormalities. VISUALIZED UPPER ABDOMEN: Normal. OTHER FINDINGS: None. IMPRESSION: No active disease.
[2018-04-25] MEDS: Oxycodone/Acetaminophen 5/325 mg Tab PO PRN ×2 (09:26→13:29)
--- NOTE | 2018-04-25 09:31 | HP ---
Copied To: Oleg Floyd MD Attending MD: Oleg Floyd MD CHIEF COMPLAINT AND HISTORY OF PRESENT ILLNESS: This is a 87-year-old female who has come in to the hospital because of feeling weak. She was having pain in the left flank. She states that the pain was fairly significant, it was about 8 to 9 out of 10. She had been taking pain medications with oxycodone and with fentanyl patch, that was not helping her pain. She has a history of squamous cell carcinoma, unknown primary. She has a history of severe anxiety and depression, dyslipidemia and osteoarthritis. The patient has no fevers or chills. No dysuria. She states she does has difficulty walking because of her weakness. Her appetite has been poor. She denies dysuria, cough, congestion. All other review of symptoms are within normal limits except as mentioned. ALLERGIES: TETRACYCLINE. PAST MEDICAL HISTORY: As above. SOCIAL HISTORY . She was a former smoker, but quit 25 years ago. FAMILY HISTORY: Noncontributory. PAST SURGICAL HISTORY Ovarian cyst surgery and carpal tunnel surgery. C. diff, dyslipidemia, osteoarthritis, community-acquired pneumonia, UTI, depression, cancer of unknown primary with squamous cell carcinoma, left-sided hydronephrosis with stent placement, chronic; anxiety. PHYSICAL EXAMINATION: VITAL SIGNS: Temperature is 98.2, pulse is 110-120, blood pressure is 166/95, respirations 18, O2 saturation 97%. GENERAL: The patient lying in bed, uncomfortable, and in no acute distress. HEENT: Atraumatic and normocephalic. Anicteric sclerae. Moist mucosa. [place] conjunctivae. No oral lesions. NECK: No JVD, anterior and posterior adenopathy, thyromegaly, or bruits. CARDIOVASCULAR: S1 and S2 regular. No murmur, rubs, or gallop. LUNGS: Clear to auscultation bilaterally. No wheezes, rales, or rhonchi. ABDOMEN: Bowel sounds are positive. Soft, left-sided tenderness on deep palpation. No rebound and no guarding. EXTREMITIES: No cyanosis, clubbing, or edema. NEUROLOGIC: No facial asymmetry. Tongue is midline. No uvula deviation. Power is 5/5 upper extremity and lower extremity. Sensation intact in upper extremity and lower extremity. PSYCHIATRIC: She is awake, alert and oriented x3. No anxiety or depression. She has normal affect. GENITOURINARY: No CVA tenderness. VASCULAR: 2+ pulses in the carotid pulses and pedal pulses. SKIN: No erythema or nodules SPINE: Shows normal curvature. LABORATORY DATA White count of 9.3, hemoglobin 10.5, platelet count 352. Chemistry is reviewed. Creatinine is 1. EKG shows heart rate of 146, sinus tachycardia. ASSESSMENT: 1. Left-sided pain secondary to squamous cell carcinoma. 2. Left-sided hydronephrosis with stent, chronic. 3. Hepatic cyst. 4. Anxiety. 5. Osteoarthritis. 6. Dyslipidemia. 7. TETRACYCLINE ALLERGY. PLAN: The patient is not comfortable. She will be placed on her fentanyl and oxycodone. The patient does have cancer and the pain is not well controlled. She may need to go to Transitional Care Unit. I will put her in a TCU evaluation. She had a CT of the head that shows no acute abnormalities. I did speak to the patient's daughter to give her an update and also get the history regarding her pain at home that was uncontrolled. Chest x-ray done shows no infiltrates. The patient is going to continue with her anxiety medication of Paxil. She is going to with Klonopin as needed. She has been placed on Tylenol p.r.n. She is on a regular diet. I will also get Physical Therapy to evaluate the patient. I did speak to director of social work and returned case inspector regarding the case. Overall prognosis is guarded. Oleg Floyd MD
--- NOTE | 2018-04-25 10:10 | CARD ---
APPROVED REPORT Date of service: 04/24/2018 EKG Measurement Heart [id number] <Conclusion> Sinus tachycardia Possible Left atrial enlargement Possible Inferior infarct, age undetermined Abnormal ECG
[2018-04-25 12:34] VITALS: RESP 18
[2018-04-25 23:07] VITALS: PULSE 111; O2SAT 96
[2018-04-26 07:28] VITALS: BP 158/89; TEMP 98.8
[2018-04-26] MEDS: Oxycodone/Acetaminophen 5/325 mg Tab PO PRN (09:30)
== END 2018-04-26 13:23 | disposition home or self-care (01) ==
LOC: ED 23:35 → ERH 04-25 03:28 → 2RNO 04-25 07:04 → 5RNO 04-25 13:48
PROVIDERS: ADMIT Internal Medicine Nephrology; ATTEND Internal Medicine Nephrology
DX: G89.3 Neoplasm related pain (acute) (chronic) (principal); C80.1 Malignant (primary) neoplasm, unspecified; R53.1 Weakness; E86.0 Dehydration; N13.30 Unspecified hydronephrosis; F31.9 Bipolar disorder, unspecified; F41.0 Panic disorder [episodic paroxysmal anxiety]; E78.5 Hyperlipidemia, unspecified; M19.90 Unspecified osteoarthritis, unspecified site; H91.90 Unspecified hearing loss, unspecified ear; K76.89 Other specified diseases of liver; Z87.891 Personal history of nicotine dependence; Z85.528 Personal history of other malignant neoplasm of kidney; Z87.01 Personal history of pneumonia (recurrent); Z88.1 Allergy status to other antibiotic agents
CPT/HCPCS: 70450; 71045; 80053; 84484; 85025; 87086; 87324; 93005; 96374; 97162; 97530; 99285; G0378; G8978; G8979; J2405; J7030

== ENCOUNTER 2018-05-01 09:16 | Inpatient (IN) | payer MEDICARE, OTHER ==
[2018-05-01] MEDS ORDERED: cefTRIAXone 1 gm 1 GM/100 ML BAG IVPB STA (09:51)
[2018-05-01] MEDS ORDERED: Sodium Chloride 0.9% 1,000 ML IV STA (10:00)
--- NOTE | 2018-05-01 10:06 | ED PDOC ---
Arrival/HPI - General Historian: Patient, Family EM Caveat: Altered Mental Status - History of Present Illness Time/Duration: < week Symptom Onset: Gradual Symptom Course: Unchanged, Worsening <Damián Lawrence - Last Filed: 05/01/18 14:28> - Critical Care Critical Care Minutes: 30 minutes <Terrance Joyce - Last Filed: 05/01/18 15:01> - General Chief Complaint: Altered Mental Status Time Seen by Provider: 05/01/18 09:21 - History of Present Illness Narrative History of Present Illness (Text): 05/01/18 10:02 Patient is an 87 year old female with PMH of squamous cell carcinoma of abdomen , L-sided hydronephrosis, OA, HLD, multiple episodes of C-diff, and hepatic cyst who presents to ED with altered mental status worsening over the past two days. Patient's daughter was present for the examination and most of the history was obtained from her. Patient's daughter states that for the past two days, her mother has been increasingly altered. She has been talking less than usual, sleeping more, and has been eating less. She has also been going to the bathroom more frequently and has been having more episodes of urine and fecal incontinence. Her daughter states that this is not her baseline. Patient's oncologist is Dr. Hernandez and PMD is Dr. Floyd. (Damián Lawrence) Past Medical History - Provider Review Nursing Documentation Reviewed: Yes - Travel History Have you recently traveled outside [place] w/in the past 3 mons?: No - Infectious Disease Hx of Infectious Diseases: C.diff - Tetanus Immunization Tetanus Immunization: Unknown - Reproductive Menopause: Yes - Cardiac Hx Cardiac Disorders: Yes Other/Comment: RT subclavian port - Pulmonary Hx Respiratory Disorders: Yes (SMOKED CIGARETTES BEFORE QUIT PK EVERY OTHER DAY) Hx Pneumonia: Yes Other/Comment: quit smoking over 25 yrs ago - Neurological Hx Neurological Disorder: Yes Hx Dizziness: Yes - HEENT Hx HEENT Disorder: Yes Hx Cataracts: Yes 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) - Renal Hx Renal Disorder: Yes (left kidney ca) Hx Renal Cancer: Yes (dx 11/2017) Other/Comment: 11/26/17 cystoscope, left retrograde pyelogram,unsucessful attempt to insert stent, bladder biopsies: dx left hydronephrosis, squamous cell ca - Endocrine/Metabolic Hx Endocrine Disorders: No - Hematological/Oncological Hx Blood Disorders: Yes Hx Cancer: Yes (small tumor found in left kidney) Hx Chemotherapy: Yes (every other week started 10wks ago) Other/Comment: recently dx 11/2017 - Integumentary Hx Dermatological Disorder: Yes Other/Comment: multiple moles to back, spider veins ble, no toenails to both great toes, hammertoes 2 3 4 5 both feet, dry skin rle - Musculoskeletal/Rheumatological Hx Falls: Yes - Gastrointestinal Hx Gastrointestinal Disorders: Yes Hx Diverticulitis: Yes Other/Comment: irritable bowel, psuedomembranous colitis, Hx c dif 3x's 2011, 10/08/2017, 08/21/2018 - Genitourinary/Gynecological Hx Genitourinary Disorders: Yes Hx Urinary Tract Infection: Yes - Psychiatric Hx Psychophysiologic Disorder: Yes Hx Anxiety: Yes Hx Bipolar Disorder: Yes Hx Depression: Yes Hx Emotional Abuse: No Hx Panic Disorder: Yes Hx Physical Abuse: No Hx Substance Use: No - Past Surgical History Past Surgical History: Non-Contributing - Surgical History Hx Appendectomy: Yes (ovarian cyst and ap together) Other/Comment: b/l exc benign cluster of breast cysts 1972, lymph node bx, right chest wall vascular access, sigmoidectomy over 10 yrs ago, sx b/l carpal tunnel - Anesthesia Hx Anesthesia: Yes Hx Anesthesia Reactions: No Hx Malignant Hyperthermia: No - Suicidal Assessment Feels Threatened In Home Enviroment: No <Damián Lawrence - Last Filed: 05/01/18 14:28> Family/Social History - Physician Review Nursing Documentation Reviewed: Yes Family/Social History: No Known Family HX Smoking Status: Smoker Currrent Status Unknown Hx Alcohol Use: No Hx Substance Use: No Hx Substance Use Treatment: No <Damián Lawrence - Last Filed: 05/01/18 14:28> Allergies/Home Meds <Damián Lawrence - Last Filed: 05/01/18 14:28> <Terrance Joyce - Last Filed: 05/01/18 15:01> Allergies/Adverse Reactions: Allergies tetracycline Allergy (Severe, Verified 04/24/18 23:49) ANAPHYLAXIS Home Medications: Home Meds Medication Instructions Recorded Confirmed ARIPiprazole [Abilify] 5 mg PO HS 12/24/17 05/01/18 Clonazepam [Klonopin] 2 mg PO QID 12/24/17 05/01/18 Mirtazapine [Remeron] 30 mg PO HS 12/24/17 05/01/18 PARoxetine [Paxil] 30 mg PO HS 12/24/17 05/01/18 valACYclovir [Valtrex] 500 mg PO DAILY 04/05/18 05/01/18 oxyCODONE [oxyCODONE Immediate 5 mg PO QID PRN 04/25/18 05/01/18 Release Tab] Fentanyl [Duragesic Patch] 1 patch TD Q72 05/01/18 05/01/18 Review of Systems - Physician Review All systems were reviewed & negative as marked: Yes - Review of Systems Systems not reviewed;Unavailable: Altered Mental Status ENT: absent: Sore Throat, Rhinorrhea Respiratory: absent: SOB, Cough Cardiovascular: absent: Chest Pain Gastrointestinal: Abdominal Pain. absent: Nausea, Vomiting Genitourinary Female: Frequency Skin: absent: Rash, Pruritis Neurological: absent: Headache Endocrine: absent: Diaphoresis <Damián Lawrence - Last Filed: 05/01/18 14:28> Physical Exam Vital Signs Reviewed: Yes Temperature: Febrile (101.9) Blood Pressure: Hypertensive Pulse: Tachycardic Respiratory Rate: Normal Appearance: Positive for: Ill-Appearing Pain Distress: Mild Mental Status: Positive for: Alert and Oriented X 3 - Systems Exam Head: Present: Atraumatic, Normocephalic Pupils: Present: PERRL Extroacular Muscles: Present: EOMI Conjunctiva: Present: Normal Ears: Present: Normal Mouth: Present: Dry Pharnyx: Present: Normal. No: ERYTHEMA, EXUDATE Nose (External): Present: Atraumatic Neck: Present: Normal Range of Motion. No: JVD Respiratory/Chest: Present: Clear to Auscultation. No: Wheezes, Rales, Rhonchi Cardiovascular: Present: Tachycardic. No: Murmurs, Rub, Gallop Abdomen: No: Tenderness, Rebound, Guarding Upper Extremity: Present: NORMAL PULSES, Neurovascularly Intact, Capillary Refill < 2s Lower Extremity: Present: NORMAL PULSES, Neurovascularly Intact, Capillary Refill < 2 s Neurological: Present: CN II-XII Intact, Speech Normal, Motor Func Grossly Intact Skin: Present: Warm, Dry Psychiatric: Present: Alert, Oriented x 3 <Damián Lawrence - Last Filed: 05/01/18 14:28> Vital Signs Temp Pulse Resp BP Pulse Ox 05/01/18 14:25 99.5 F 118 H 19 132/78 97 05/01/18 12:00 129 H 18 98 05/01/18 11:08 101.9 F H 05/01/18 09:17 101.9 F H 143 H 18 153/91 H 96 Medical Decision Making - RAD Interpretation Procedure Writer: ED Physician - EKG Interpretation Interpreted by ED Physician: Yes Type: 12 lead EKG Comparison: Com.w/previous EKG <Damián Lawrence - Last Filed: 05/01/18 14:28> - Critical Care Critical Care Minutes: 30 minutes - Lab Interpretations I have reviewed the lab results: Yes <Terrance Joyce - Last Filed: 05/01/18 15:01> ED Course and Treatment: 05/01/18 10:16 -Patient with AMS x 2 days with increased urinary frequency -Patient is febrile and tachycardic on exam -CBC, CMP, VBG shock panel, CXR, UA, Blood and urine cx ordered -Rocphein and flagyl started as patient has history of C-diff and daughter states that she frequently needs flagyl with antibiotics 05/01/18 10:37 -Spoke with Dr. Floyd who agrees with plan, will notify him of the results when they return 05/01/18 11:09 -Patient reassessed, appears more awake and alert -Remains tachycardic, feels cooler to touch -NS bolus started 05/01/18 12:19 -Patient reassessed, awake and alert -Tachycardia improved to low 100s -She is s/p dose of CTX, 1 L NS bolus given -Will likely need second L bolus, still appears dry and remains tachycardic 05/01/18 14:15 -Spoke with Dr. Floyd who agrees to admission (Damián Lawrence) Patient Seen With Resident: In agreement with resident note which contains more details about the patient. Patient was seen and evaluated with resident. Came up with plan and treatment together. 87 year old female presents for worsening AMS over the past 2 days. Plan: -- Labs -- VBG -- EKG -- Chest X-ray -- Flagyl, Rocpephin, IV Fluids, Tylenol -- Blood Culture, Urine Culture -- Proclacitonin Serum -- Urinalysis 05/01/18 9:39 EKG shows Sinus Tachycardia at 143 BPM. Interpreted by me. Patient improved in the ED with IV fluids and antibiotics. Initially treated on arrival empirically for suspected UTI. Treated with Rocephin IV. Daughter insisted on treated her mother with Flagyl because everytime she get's antibiotics she gets Flagyl. UTI noted on UA. Stool sample sent with positive Cdiff. CBC showed elevated WBC. Added Vancomycin PO. HR improved to 110's in the ED. Blood pressure stable. Patient appears more alert in ED. Discussed case with Dr. Hdez who agreed to admission. He is covering for Dr. Hernandez her Hem/Onc as well. I also discussed DNR/DNI with patient's daughter who does not want to make a decision on this yet until she talks to her brother, patient's son. Consult placed for Radha Miller. (Terrance Joyce) - Lab Interpretations Microbiology Results: Microbiology Results 05/01/18 12:00 Stool C. difficile Antigen & Toxin A,B (M - Final Lab Results: 05/01/18 10:05 05/01/18 12:09 Lab Results 05/01/18 12:09: Sodium 137, Chloride 99, Potassium 4.1, Carbon Dioxide 27, Anion Gap 15, BUN 13, Creatinine 0.8, Est GFR ( Amer) > 60, Est GFR (Non- Af Amer) > 60, Random Glucose 101, Calcium 9.1, Phosphorus 3.2, Magnesium 1.4 L , Total Bilirubin 0.3, AST 23, ALT 19, Alkaline Phosphatase 115, Total Protein 6.2, Albumin 3.1, Globulin 3.1, Albumin/Globulin Ratio 1.0 L 05/01/18 12:06: Lipase 25 05/01/18 10:30: pO2 31, VBG pH 7.36, VBG pCO2 47.0, VBG HCO3 26.6, VBG Total CO2 28.0, VBG O2 Sat (Calc) 63.6, VBG Base Excess 0.6, VBG Potassium 5.0, Sodium 133.0, Chloride 100.0, Glucose 104, Lactate 1.7, FiO2 21.0, Venous Blood Potassium 5.0 05/01/18 10:05: PT 13.6 H, INR 1.18, APTT 33.4 05/01/18 10:05: WBC 24.6 H D, RBC 3.34 L, Hgb 11.0 L, Hct 34.0 L, MCV 101.8 D, MCH 32.9, MCHC 32.4, RDW 17.6 H, Plt Count 426, MPV 9.5, Gran % 85.4 H, Lymph % (Auto) 5.9 L, [place] % (Auto) 8.6 H, Eos % (Auto) 0.0 L, Baso % (Auto) 0.1, Gran # 21.01 H, Lymph # (Auto) 1.5, [place] # (Auto) 2.1 H, Eos # (Auto) 0.0, Baso # ( Auto) 0.03 05/01/18 09:46: Urine Color Yellow, Urine Appearance Clear, Urine pH 6.0, Ur Specific [place] 1.025, Urine Protein 100 H, Urine Glucose (UA) Negative, Urine Ketones 15 H, Urine Blood Large H, Urine Nitrate Positive H, Urine Bilirubin Negative, Urine Urobilinogen 0.2, Ur Leukocyte Esterase Trace H, Urine RBC 25 - 30, Urine WBC 5 - 10, Ur Epithelial Cells 4 - 5, Amorphous Sediment Few, Urine Bacteria Many, Fine Granular Casts 0 - 2, Urine Other Uyeast - RAD Interpretation Narrative RAD Interpretations (Text): 05/01/18 10:26 CXR without acute findings compared with previous (Damián Lawrence) Radiology Orders: 05/01/18 09:51 CHEST PORTABLE [RAD] Stat - EKG Interpretation EKG Interpretation (Text): 05/01/18 10:[address] or T wave changes (Damián Lawrence) - Medication Orders Current Medication Orders: Acetaminophen (Tylenol 325mg Tab) 650 mg PO Q4 PRN PRN Reason: Fever >100.4 F Aripiprazole (Abilify) 5 mg PO HS EZEQUIEL Fentanyl (Duragesic) 1 patch TD Q72 EZEQUIEL Heparin Sodium (Porcine) (Heparin) 5,000 units SC Q8 EZEQUIEL PRN Reason: Protocol Sodium Chloride (Sodium Chloride 0.9%) 1,000 mls @ 100 mls/hr IV .Q10H EZEQUIEL Last Admin: 05/01/18 14:24 Dose: 100 mls/hr eMAR Start Stop Document 05/01/18 14:24 [email or web address] (Rec: 05/01/18 14:24 [email or web address] [id number]) Intravenous Solution Start Date 05/01/18 Start Time 14:24 Metronidazole (Flagyl) 500 mg in 100 mls @ 100 mls/hr IVPB Q8 EZEQUIEL PRN Reason: Protocol Ceftriaxone Sodium (Rocephin 1 Gram Ivpb) 1 gm in 100 mls @ 100 mls/hr IVPB DAILY EZEQUIEL PRN Reason: Protocol Mirtazapine (Remeron) 30 mg PO HS EZEQUIEL Oxycodone HCl (Oxycodone Immediate Release Tab) 5 mg PO QID PRN PRN Reason: Pain, moderate (4-7) Paroxetine HCl (Paxil) 30 mg PO HS EZEQUIEL Discontinued Medications Acetaminophen (Tylenol 325mg Tab) 975 mg PO ONCE PRN PRN Reason: Fever >100.4 F Last Admin: 05/01/18 11:08 Dose: 975 mg MAR Pain/Vitals Document 05/01/18 11:08 [email or web address] (Rec: 05/01/18 11:08 [email or web address] [id number]) Vitals Temperature (97.6 F-99.6 F) 101.9 F Temperature Source Rectal Acetaminophen (Tylenol 325mg Tab) 650 mg PO Q4 PRN PRN Reason: Fever >100.4 F Ceftriaxone Sodium (Rocephin 1 Gram Ivpb) 1 gm in 100 mls @ 200 mls/hr IVPB STAT STA PRN Reason: Protocol Stop: 05/01/18 10:20 Last Admin: 05/01/18 11:07 Dose: 200 mls/hr eMAR Start Stop Document 05/01/18 11:07 [email or web address] (Rec: 05/01/18 11:08 [email or web address] [id number]) Intravenous Solution Start Date 05/01/18 Start Time 11:08 Sodium Chloride (Sodium Chloride 0.9%) 1,000 mls @ 999 mls/hr IV .Q1H1M STA Stop: 05/01/18 11:00 Last Admin: 05/01/18 11:08 Dose: 999 mls/hr eMAR Start Stop Document 05/01/18 11:08 [email or web address] (Rec: 05/01/18 11:09 [email or web address] [id number]) Intravenous Solution Start Date 05/01/18 Start Time 11:09 Metronidazole (Flagyl) 500 mg in 100 mls @ 100 mls/hr IVPB STAT STA PRN Reason: Protocol Stop: 05/01/18 11:17 Last Admin: 05/01/18 14:20 Dose: 100 mls/hr eMAR Start Stop Document 05/01/18 14:20 [email or web address] (Rec: 05/01/18 14:20 [email or web address] [id number]) Intravenous Solution Start Date 05/01/18 Start Time 14:20 Magnesium 2 gm/50 ml NS (Magnesium Sulfate 2 Gm/50 Ml Ns) 2 gm in 50 mls @ 50 mls/hr IVPB ONCE ONE Stop: 05/01/18 13:31 Last Admin: 05/01/18 14:23 Dose: 50 mls/hr eMAR Start Stop Document 05/01/18 14:23 [email or web address] (Rec: 05/01/18 14:24 [email or web address] [id number]) Intravenous Solution Start Date 05/01/18 Start Time 14:24 End Date 05/01/18 Vancomycin HCl (Vancocin 25 Mg/Ml (Oral Use)) 250 mg PO STAT STA PRN Reason: Protocol Stop: 05/01/18 13:32 <Damián Lawrence - Last Filed: 05/01/18 14:28> - PA / [employer]MENT LEADER / Resident Statement / has reviewed & agrees with the documentation as recorded. / has examined the patient and agrees with the treatment plan. - Scribe Statement The provider has reviewed the documentation as recorded by the Scribe <Terrance Joyce - Last Filed: 05/01/18 15:01> - Scribe Statement Paul Rose Provider Scribe Attestation: All medical record entries made by the Scribe were at my direction and personally dictated by me. I have reviewed the chart and agree that the record accurately reflects my personal performance of the history, physical exam, medical decision making, and the department course for this patient. I have also personally directed, reviewed, and agree with the discharge instructions and disposition. (Terrance Joyce) Disposition/Present on Arrival - Present on Arrival Any Indicators Present on Arrival: No History of DVT/PE: No History of Uncontrolled Diabetes: No Urinary Catheter: No History of Decub. Ulcer: No History Surgical Site Infection Following: None - Disposition Have Diagnosis and Disposition been Completed?: Yes Disposition Time: 14:03 Isolation: Contact Patient Plan: Admission <Damián Lawrence - Last Filed: 05/01/18 14:28> <Terrance Joyce - Last Filed: 05/01/18 15:01> - Disposition Diagnosis: Sepsis, Stool culture positive for Clostridium difficile, Altered mental status Disposition: HOSPITALIZED Patient Problems: Current Active Problems Problem Status Onset Altered mental status Acute Sepsis Acute Stool culture positive for Clostridium difficile Acute Condition: FAIR
[2018-05-01] MEDS ORDERED: metroNIDAZOLE IV 500 mg/100 ml 500 MG/100 ML BAG IVPB STA (10:18)
[2018-05-01 10:41] LABS: VENOUS BLOOD GAS BASE EXCESS 0.6 mmol/L (0.0-2.0); VENOUS BLOOD GAS PO2 31 mm/Hg (30-55); VENOUS BLOOD PH 7.36 (7.32-7.43)
[2018-05-01 10:46] LABS: BASO # 0.03 K/mm3 (0.0-2.0); BASO % 0.1 % (0.0-3.0); GRAN # 21.01 (1.4-6.5); GRAN % 85.4 % (50.0-68.0); LYMPH # 1.5 (1.2-3.4); LYMPH % 5.9 % (22.0-35.0); MEAN CELL VOLUME 101.8 fl (80.0-105.0); MEAN CORPUSCULAR HEMOGLOBIN 32.9 pg (25.0-35.0); MEAN CORPUSCULAR HGB CONC 32.4 g/dl (31.0-37.0); MEAN PLATELET VOLUME 9.5 fl (7.0-11.0); MONO # 2.1 (0.1-0.6); MONO % 8.6 % (1.0-6.0); RBC 3.34 10^6/uL (3.5-6.1); RED CELL DISTRIBUTION WIDTH 17.6 % (11.5-14.5); WHITE BLOOD COUNT 24.6 10^3/ul (4.5-11.0)
[2018-05-01 10:59] LABS: INR 1.18; PARTIAL THROMBOPLASTIN TIME 33.4 Seconds (25.1-36.5); PROTHROMBIN TIME 13.6 SECONDS (9.4-12.5)
--- NOTE | 2018-05-01 11:27 | RAD ---
Date of service: 05/01/2018 HISTORY: Sepsis Patient COMPARISON: 04/25/2018 FINDINGS: LUNGS: No active pulmonary disease. PLEURA: No significant pleural effusion identified, no pneumothorax apparent. CARDIOVASCULAR: Normal. OSSEOUS STRUCTURES: No significant abnormalities. VISUALIZED UPPER ABDOMEN: Normal. OTHER FINDINGS: Right-sided Port-A-Cath. IMPRESSION: No active disease.
[2018-05-01 12:30] LABS: ALBUMIN 3.1 g/dL (3.0-4.8); ALT/SGPT 19 U/L (7-56); AST/SGOT 23 U/L (14-36); BLOOD UREA NITROGEN 13 mg/dL (7-21); CALCIUM 9.1 mg/dL (8.4-10.5); GFR NON-AFRICAN AMERICAN > 60
--- NOTE | 2018-05-01 12:30 | CP.PCM.HP ---
History of Present Illness - History of Present Illness History of Present Illness: PGY-[address] Mendoza Ms Sergio, 87 F, with PMHx Stage IV squamus cell cancer, L retroperitum, unknown origin, Dx 11/2017, on single-agent chemo gemcitabine, every other week started 10 weeks ago, complicated by L sided hydronephrosis, Hx C.diff colitis 6 month ago, came to ED for AMS x 2 days. History was limited due to pt a poor historian. I've called the daughter for more history, but only able to leave a message. Per ED record, pt talking less than usual, sleeping more, and has been eating less. She has also been going to the bathroom more frequently and has been having more episodes of urine and fecal incontinence/diarrhea. ROS: (+) Suprapubic pain 10/10 per patient Denies GONZALES, F/C, SOB, CP, N/V/D/C, dysuria, numbness/tingling In ED: T 101.9. HR 143 WBC 24.6, Lactate 1.7, Mg 1.4 Sent BC, U/A, UC, C diff, Stool culture, occult blood in stool, procalc CXR: no active disease EKG shows Sinus Tachycardia at 143 BPM She got rocephin, flagyl, NS 1L, tylenol. 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 Used to smoke 1 pack every other day Denies EtOH, drugs or tobacco use. Allergies: tetracycline- rash Home meds: Reviewed as per MAR PMD: Dr Floyd Onc: Dr Hernandez Present on Admission - Present on Admission Any Indicators Present on Admission: No Past Patient History - Infectious Disease Hx of Infectious Diseases: C.diff - Tetanus Immunizations Tetanus Immunization: Unknown - Past Social History Smoking Status: Smoker Currrent Status Unknown - CARDIAC Hx Cardiac Disorders: Yes Other/Comment: RT subclavian port - PULMONARY Hx Respiratory Disorders: Yes (SMOKED CIGARETTES BEFORE QUIT PK EVERY OTHER DAY) Hx Pneumonia: Yes Other/Comment: quit smoking over 25 yrs ago - NEUROLOGICAL Hx Neurological Disorder: Yes Hx Dizziness: Yes - HEENT Hx HEENT Problems: Yes Hx Cataracts: Yes 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) - RENAL Hx Chronic Kidney Disease: Yes (left kidney ca) Hx Renal (Kidney) Cancer: Yes (dx 11/2017) Other/Comment: 11/26/17 cystoscope, left retrograde pyelogram,unsucessful attempt to insert stent, bladder biopsies: dx left hydronephrosis, squamous cell ca - ENDOCRINE/METABOLIC Hx Endocrine Disorders: No - HEMATOLOGICAL/ONCOLOGICAL Hx Blood Disorders: Yes Hx Cancer: Yes (small tumor found in left kidney) Hx Chemotherapy: Yes (every other week started 10wks ago) Other/Comment: recently dx 11/2017 - INTEGUMENTARY Hx Dermatological Problems: Yes Other/Comment: multiple moles to back, spider veins ble, no toenails to both great toes, hammertoes 2 3 4 5 both feet, dry skin rle - MUSCULOSKELETAL/RHEUMATOLOGICAL Hx Falls: Yes - GASTROINTESTINAL Hx Gastrointestinal Disorders: Yes Hx Diverticulitis: Yes Other/Comment: irritable bowel, psuedomembranous colitis, Hx c dif 3x's 2011, 10/08/2017, 08/21/2018 - GENITOURINARY/GYNECOLOGICAL Hx Genitourinary Disorders: Yes Hx Urinary Tract Infection: Yes - PSYCHIATRIC Hx Psychophysiologic Disorder: Yes Hx Anxiety: Yes Hx Bipolar Disorder: Yes Hx Depression: Yes Hx Emotional Abuse: No Hx Panic Symptoms: Yes Hx Physical Abuse: No Hx Substance Use: No - SURGICAL HISTORY Hx Appendectomy: Yes (ovarian cyst and ap together) Other/Comment: b/l exc benign cluster of breast cysts 1972, lymph node bx, right chest wall vascular access, sigmoidectomy over 10 yrs ago, sx b/l carpal tunnel - ANESTHESIA Hx Anesthesia: Yes Hx Anesthesia Reactions: No Hx Malignant Hyperthermia: No Meds Allergies/Adverse Reactions: Allergies Allergy/AdvReac Type Severity Reaction Status Date / Time tetracycline Allergy Severe ANAPHYLAXIS Verified 04/24/18 23:49 Physical Exam - Constitutional Appears: No Acute Distress - Head Exam Head Exam: ATRAUMATIC, NORMAL INSPECTION, NORMOCEPHALIC - Eye Exam Eye Exam: EOMI, Normal appearance, PERRL. absent: Scleral icterus Pupil Exam: NORMAL ACCOMODATION - ENT Exam ENT Exam: Mucous Membranes Dry Additional comments: kelosis both corner of mouth - Neck Exam Additional comments: supple - Respiratory Exam Respiratory Exam: Clear to Auscultation Bilateral, NORMAL BREATHING PATTERN. absent: Rales, Rhonchi, Wheezes - Cardiovascular Exam Cardiovascular Exam: REGULAR RHYTHM, +S1, +S2. absent: Systolic Murmur - GI/Abdominal Exam GI & Abdominal Exam: Soft. absent: Distended, Guarding, Rigid, Tenderness Additional comments: Negative lacey, negative rovsing (+) suprapubic to hypogastric tenderness - Extremities Exam Extremities exam: Positive for: pedal pulses present. Negative for: calf tenderness, pedal edema - Back Exam Back exam: absent: CVA tenderness (L), CVA tenderness (R) - Neurological Exam Neurological exam: Alert, CN II-XII Intact Additional comments: AAO to place and person. Not to time No slurring of speech Move all extremities equally. Sensation intact Motor 5/5 all extremities No focal neural deficit - Psychiatric Exam Psychiatric exam: Normal Affect, Normal Mood - Skin Skin Exam: Dry, Warm Results - Vital Signs Recent Vital Signs: Last Vital Signs Temp 101.9 F H 05/01/18 11:08 Pulse 143 H 05/01/18 09:17 Resp 18 05/01/18 09:17 BP 153/91 H 05/01/18 09:17 Pulse Ox 96 05/01/18 09:17 - Labs Result Diagrams: 05/01/18 10:05 05/01/18 12:09 Labs: Laboratory Results - last 24 hr 05/01/18 05/01/18 05/01/18 10:05 10:05 10:30 WBC 24.6 H D RBC 3.34 L Hgb 11.0 L Hct 34.0 L MCV 101.8 D MCH 32.9 MCHC 32.4 RDW 17.6 H Plt Count 426 MPV 9.5 Gran % 85.4 H Lymph % (Auto) 5.9 L [place] % (Auto) 8.6 H Eos % (Auto) 0.0 L Baso % (Auto) 0.1 Gran # 21.01 H Lymph # (Auto) 1.5 [place] # (Auto) 2.1 H Eos # (Auto) 0.0 Baso # (Auto) 0.03 PT 13.6 H INR 1.18 APTT 33.4 pO2 31 VBG pH 7.36 VBG pCO2 47.0 VBG HCO3 26.6 VBG Total CO2 28.0 VBG O2 Sat (Calc) 63.6 VBG Base Excess 0.6 VBG Potassium 5.0 Sodium 133.0 Chloride 100.0 Glucose 104 Lactate 1.7 FiO2 21.0 Venous Blood Potassium 5.0 Assessment & Plan - Assessment and Plan (Free Text) Plan: Ms Hill, 87 F, with PMHx Stage IV squamus cell cancer, L retroperitum, unknown origin, Dx 11/2017, on single-agent chemo gemcitabine, every other week started 10 weeks ago, complicated by L sided hydronephrosis, Hx C.diff colitis 6 month ago, came to ED for AMS x 2 days, associated with increased episodes of urine and fecal incontinence/diarrhea. AMS likely due to sepsis causing metabolic encephalopathy - improving - No focal neuro deficit. Mentation improves in ED. No need for CT head for now - Last CT head 04/24/18 - no acute finding - neuro check q4 - Aspiration precaution; turn q2 to prevent pressure ulcer Sepsis likely from UTI, questionable c diff colilits, r/o skin, unlikely pneumonia Fever 101.9, Leukocytosis (24.6), Sinus Tachycardia Tetracyclin allergy - EKG: sinus tachy @ 143. Qtc 441 - CXR: no active disease - Ceftriaxone and flagyl, day __1__, pending ID rec - NS@100 for decrease appetite and fever - follow up BC, U/A, UC, C diff, Stool culture, occult blood in stool, procalc - if clinical course does not improve, will get CT A/P Macrocytic anemia, new onset Fe deficiency anemia, chronic, Hb 11 at baseline - check B12, folate Angular Cheilosis - nystatin cream, check B2 level Hx Stage IV squamus cell cancer, L retroperitoneal mass, unknown origin, Dx 2017- On chemo gemcitabine, every other week started 10 weeks ago Complicated by L sided hydronephrosis - Continue fentynal patch, hold if pt appear drowsy. Peel off the old patch - Confirm with Dr Hernandez re: continuing valtrex as shingle prophylasix? - Dr Hernandez consult - Palliative consult Bipolar - Continue Abilify, Remeron and Paxil. Hold if pt appear drowsy - Hold klonopin for now for AMS DVT prophylaxis - heparin SC. Low risk to GI stress ulcer. s/r/d/w Dr Mendoza
[2018-05-01] MEDS ORDERED: Magnesium 2 gm/50 ml NS 2 GM/50 ML BAG IVPB ONE (12:32)
[2018-05-01] MEDS ORDERED: Sodium Chloride 0.9% 1,000 ML IV SCH (12:45)
[2018-05-01 12:55] LABS: URINE BILIRUBIN NEGATIVE (NEGATIVE); URINE BLOOD LARGE (NEGATIVE); URINE GLUCOSE (UA) NEGATIVE (NEGATIVE); URINE LEUKOCYTE ESTERASE TRACE Leu/uL (NEGATIVE); URINE PROTEIN 100 mg/dL (<30 mg/dL); URINE UROBILINOGEN 0.2 E.U./dL (<1 E.U./dL)
[2018-05-01 13:02] LABS: URINE APPEARANCE CLEAR (CLEAR); URINE COLOR YELLOW (YELLOW)
[2018-05-01 13:10] LABS: URINE BACTERIA MANY (NEG); URINE RBC 25 - 30 /hpf (0-2)
[2018-05-01 13:11] LABS: URINE AMORPHOUS SEDIMENT FEW; URINE FINE GRANULAR CAST 0 - 2 /hpf (0-2)
[2018-05-01] MEDS ORDERED: Vancomycin 25 MG/ML PO STA (13:31)
[2018-05-01] MEDS: Sodium Chloride 0.9% 1,000 ML IV SCH (14:24)
[2018-05-01] MEDS: oxyCODONE 5 mg Immediate Release Tab PO PRN (18:08)
[2018-05-01 21:05] VITALS: BMI 18.5
[2018-05-01] MEDS ORDERED: Pneumococcal 23-Valent Vaccine IM ONE (21:05)
--- NOTE | 2018-05-01 21:27 | CARD ---
APPROVED REPORT Date of service: 05/01/2018 EKG Measurement Heart [id number] <Conclusion> Sinus tachycardia with premature atrial complexes Inferior infarct, age undetermined Abnormal ECG
[2018-05-01] MEDS: Vancomycin 25 MG/ML PO SCH (22:52)
[2018-05-01] MEDS: metroNIDAZOLE IV 500 mg/100 ml 500 MG/100 ML BAG IVPB SCH (22:54)
--- NOTE | 2018-05-01 23:27 | CARD ---
APPROVED REPORT Date of service: 05/01/2018 EKG Measurement Heart [id number] <Conclusion> Sinus tachycardia with APCs Otherwise normal ECG
[2018-05-02] MEDS ORDERED: Metoprolol 1 mg/ml Inj IVP ONE (00:25)
[2018-05-02] MEDS: metroNIDAZOLE IV 500 mg/100 ml 500 MG/100 ML BAG IVPB SCH ×3 (08:21→21:21)
[2018-05-02] MEDS: Sodium Chloride 0.9% 1,000 ML IV SCH ×2 (08:29→21:22)
[2018-05-02 08:50] LABS: BASO # 0.02 K/mm3 (0.0-2.0); BASO % 0.1 % (0.0-3.0); EOS % 0.1 % (1.5-5.0); GRAN # 22.64 (1.4-6.5); GRAN % 87.5 % (50.0-68.0); HEMOGLOBIN 9.3 g/dL (12.0-16.0); LYMPH % 7.6 % (22.0-35.0); MEAN CELL VOLUME 99.6 fl (80.0-105.0); MEAN CORPUSCULAR HGB CONC 33.1 g/dl (31.0-37.0); MEAN PLATELET VOLUME 9.2 fl (7.0-11.0); MONO # 1.2 (0.1-0.6); MONO % 4.7 % (1.0-6.0); RBC 2.82 10^6/uL (3.5-6.1); RED CELL DISTRIBUTION WIDTH 17.7 % (11.5-14.5)
[2018-05-02 09:15] LABS: WHITE BLOOD COUNT 25.9 10^3/ul (4.5-11.0)
[2018-05-02 09:30] LABS: ALBUMIN 2.4 g/dL (3.0-4.8); ALT/SGPT 21 U/L (7-56); AST/SGOT 12 U/L (14-36); BLOOD UREA NITROGEN 12 mg/dL (7-21); CALCIUM 8.4 mg/dL (8.4-10.5); GFR NON-AFRICAN AMERICAN > 60
[2018-05-02] MEDS ORDERED: cefTRIAXone 1 gm 1 GM/100 ML BAG IVPB SCH (10:00)
--- NOTE | 2018-05-02 10:00 | CP.PCM.PN ---
Addendum entered and electronically signed by Gabriela Wilkerson DO 05/02/18 10:09 : Add renal/bladder ultrasound to r/o infection. F/U urine culture Original Note: <Gabriela Wilkerson - Last Filed: 05/02/18 09:57> Subjective - Date & Time of Evaluation Date of Evaluation: 05/02/18 Time of Evaluation: 07:00 - Subjective Subjective: PGY-[address] Floyd Pt said suprapubic pain improves. Denies F/C, CP, SOB, N/V/C. Incontinent to urine and bowel Got lopressor 5 IV x 1 for sinus tach with SVT to 150. Pt did not recall event Objective - Vital Signs/Intake and Output Vital Signs (last 24 hours): Temp Pulse Resp BP Pulse Ox 98.0 F 100 H 18 144/71 95 05/02/18 06:00 05/02/18 06:00 05/02/18 06:00 05/02/18 06:00 05/02/18 06:00 Intake and Output: 05/02/18 05/02/18 06:59 18:59 Intake Total 300 Output Total 4 Balance 296 - Medications Medications: Current Medications Acetaminophen (Tylenol 325mg Tab) 650 mg PO Q4 PRN PRN Reason: Fever >100.4 F Last Admin: 05/01/18 17:01 Dose: 650 mg Aripiprazole (Abilify) 5 mg PO [facility] Last Admin: 05/01/18 22:54 Dose: 5 mg Fentanyl (Duragesic) 1 patch TD Q72 [facility] Heparin Sodium (Porcine) (Heparin) 5,000 units SC Q8 [facility] PRN Reason: Protocol Last Admin: 05/02/18 08:21 Dose: 5,000 units Sodium Chloride (Sodium Chloride 0.9%) 1,000 mls @ 100 mls/hr IV .Q10H [facility] Last Admin: 05/02/18 08:29 Dose: 100 mls/hr Metronidazole (Flagyl) 500 mg in 100 mls @ 100 mls/hr IVPB Q8 [facility] PRN Reason: Protocol Last Admin: 05/02/18 08:21 Dose: 100 mls/hr Magnesium Oxide (Mag-Ox) 400 mg PO BID [facility] Mirtazapine (Remeron) 30 mg PO [facility] Last Admin: 05/01/18 22:55 Dose: 30 mg Oxycodone HCl (Oxycodone Immediate Release Tab) 5 mg PO QID PRN PRN Reason: Pain, moderate (4-7) Last Admin: 05/01/18 18:08 Dose: 5 mg Paroxetine HCl (Paxil) 30 mg PO HS [facility] Last Admin: 05/01/18 22:53 Dose: 30 mg Vancomycin HCl (Vancocin 25 Mg/Ml (Oral Use)) 125 mg PO QID [facility] PRN Reason: Protocol Stop: 05/15/18 22:01 Last Admin: 05/01/18 22:52 Dose: 125 mg - Labs Labs: 05/02/18 08:40 05/02/18 08:40 PT 13.6 SECONDS (9.4-12.5) H 05/01/18 10:05 INR 1.18 05/01/18 10:05 APTT 33.4 Seconds (25.1-36.5) 05/01/18 10:05 - Constitutional Appears: No Acute Distress - Head Exam Head Exam: ATRAUMATIC, NORMAL INSPECTION, NORMOCEPHALIC - Eye Exam Eye Exam: EOMI, Normal appearance, PERRL. absent: Scleral icterus Pupil Exam: NORMAL ACCOMODATION - ENT Exam ENT Exam: Mucous Membranes Moist - Neck Exam Additional comments: supple - Respiratory Exam Respiratory Exam: Clear to Ausculation Bilateral. absent: Rales, Rhonchi, Wheezes - Cardiovascular Exam Cardiovascular Exam: Tachycardia, REGULAR RHYTHM, +S1, +S2 - GI/Abdominal Exam GI & Abdominal Exam: Soft, Tenderness (Hypogastric and suprapubic area), Hyperactive Bowel Sounds. absent: Distended, Firm, Guarding, Rigid - Extremities Exam Extremities Exam: Normal Capillary Refill. absent: Calf Tenderness, Pedal Edema , Tenderness - Back Exam Back Exam: absent: CVA tenderness (L), CVA tenderness (R) - Neurological Exam Neurological Exam: Alert, Awake Neuro motor strength exam: Left Upper Extremity: 5, Right Upper Extremity: 5, Left Lower Extremity: 5, Right Lower Extremity: 5 Additional comments: AAOx2 to place and people No slurr in speech move all extremities equally motor and sensory grossly intact - Psychiatric Exam Psychiatric exam: Normal Affect, Normal Mood - Skin Skin Exam: Dry, Warm Assessment and Plan - Assessment and Plan (Free Text) Plan: Ms Hill, 87 F, with PMHx Stage IV squamous cell cancer, L retroperitum, unknown origin, Dx 11/2017, on single-agent chemo gemcitabine, every other week started 10 weeks ago, complicated by L sided hydronephrosis, Hx C.diff colitis 6 month ago, came to ED for AMS x 2 days, associated with increased episodes of urine and fecal incontinence/diarrhea. C diff toxin positive. pending urine culture. WBC trends up to 25.9. Procacl 20.28 Sepsis likely from c diff colilits, ? UTI, ? pneumonia, CAP vs penumonitis Fever 101.9, Leukocytosis (24.6), Sinus Tachycardia - WBC trending up Tetracyclin allergy - EKG: sinus tachy @ 143. Qtc 441 - CXR: no active disease; Procacl 20.28 - flagyl, day __2__; Vanco PO, day __1__ - NS@100 for decrease appetite and fever - follow up BC, UC, Stool culture, occult blood in stool - if clinical course does not improve, will get CT A/P Macrocytic anemia, new onset Fe deficiency anemia, chronic, Hb 11 at baseline - check B12, folate AMS likely due to sepsis causing metabolic encephalopathy - improving - No focal neuro deficit. Mentation improves in ED. No need for CT head for now - Last CT head 04/24/18 - no acute finding - neuro check q4 - Aspiration precaution; turn q2 to prevent pressure ulcer Angular Cheilosis - barrier cream, check B2 level Hx Stage IV squamus cell cancer, L retroperitoneal mass, unknown origin, Dx 2017- On chemo gemcitabine, every other week started 10 weeks ago Complicated by L sided hydronephrosis - Continue fentynal patch, hold if pt appear drowsy. Peel off the old patch - Confirm with Dr Hernandez re: continuing valtrex as shingle prophylasix? - Dr Hernandez consult - Palliative consult Bipolar - Continue Abilify, Remeron and Paxil. Hold if pt appear drowsy - Hold klonopin for now for AMS DVT prophylaxis - heparin SC. Low risk to GI stress ulcer. s/r/d/w Dr Floyd <Oleg Floyd S - Last Filed: 05/02/18 14:35> Objective - Vital Signs/Intake and Output Vital Signs (last 24 hours): Temp Pulse Resp BP Pulse Ox 98 F 68 18 110/60 95 05/02/18 12:00 05/02/18 12:00 05/02/18 12:00 05/02/18 12:00 05/02/18 06:00 Intake and Output: 05/02/18 05/02/18 06:59 18:59 Intake Total 300 Output Total 4 Balance 296 - Medications Medications: Current Medications Acetaminophen (Tylenol 325mg Tab) 650 mg PO Q4 PRN PRN Reason: Fever >100.4 F Last Admin: 05/01/18 17:01 Dose: 650 mg Aripiprazole (Abilify) 5 mg PO HS [facility] Last Admin: 05/01/18 22:54 Dose: 5 mg Fentanyl (Duragesic) 1 patch TD Q72 [facility] Heparin Sodium (Porcine) (Heparin) 5,000 units SC Q8 [facility] PRN Reason: Protocol Last Admin: 05/02/18 08:21 Dose: 5,000 units Sodium Chloride (Sodium Chloride 0.9%) 1,000 mls @ 100 mls/hr IV .Q10H [facility] Last Admin: 05/02/18 08:29 Dose: 100 mls/hr Metronidazole (Flagyl) 500 mg in 100 mls @ 100 mls/hr IVPB Q8 [facility] PRN Reason: Protocol Last Admin: 05/02/18 08:21 Dose: 100 mls/hr Magnesium Oxide (Mag-Ox) 400 mg PO BID [facility] Last Admin: 05/02/18 10:29 Dose: 400 mg Mirtazapine (Remeron) 30 mg PO [facility] Last Admin: 05/01/18 22:55 Dose: 30 mg Oxycodone HCl (Oxycodone Immediate Release Tab) 5 mg PO QID PRN PRN Reason: Pain, moderate (4-7) Last Admin: 05/01/18 18:08 Dose: 5 mg Paroxetine HCl (Paxil) 30 mg PO [facility] Last Admin: 05/01/18 22:53 Dose: 30 mg Vancomycin HCl (Vancocin 25 Mg/Ml (Oral Use)) 500 mg PO QID [facility] PRN Reason: Protocol Stop: 05/15/18 22:01 - Labs Labs: 05/02/18 08:40 05/02/18 08:40 PT 13.6 SECONDS (9.4-12.5) H 05/01/18 10:05 INR 1.18 05/01/18 10:05 APTT 33.4 Seconds (25.1-36.5) 05/01/18 10:05 Assessment and Plan - Assessment and Plan (Free Text) Plan: Pt seen and examined. I have reviewed the note of the medical lead and agree with it. I have discussed the assessment and plan with the resident. I have reviewed the patient's labs and medications. Pt with C diff. On Vanco for Abx. Pt is on IVF. Spoke to her daughter. She is getting Squamous Cell Ca of unknown etiology and getting chemo.
[2018-05-02] MEDS: Magnesium Oxide 400 mg Tab UD PO SCH ×2 (10:29→17:30)
[2018-05-02] MEDS: Vancomycin 25 MG/ML PO SCH ×4 (11:12→21:29)
--- NOTE | 2018-05-02 11:26 | US ---
Date of service: 05/02/2018 PROCEDURE: Ultrasound of the Kidneys with the Urinary Bladder HISTORY: r/o cystitis/retention COMPARISON: Abdomen pelvis CT examination with contrast 04/05/2018.. TECHNIQUE: Sonogram of the kidneys. FINDINGS: RIGHT KIDNEY: Measures: 9.0 x 8.1 x 6.1 cm. Normal in size, contour and echogenicity. Moderate cortical atrophy is identified. No stone, solid mass lesion or hydronephrosis visualized. LEFT KIDNEY: Measures: 9.4 x 7.4 x 5.3 cm. The left kidney is normal in size with the contour interrupted minimally in the periphery by an anterior simple cyst in the cortex measuring 1.2 x 0.9 x 1.2 cm, avascular. Moderate renal cortical atrophy identified. There is moderate hydronephrosis with dilatation of the pelvocaliceal system noted diffusely. No urolithiasis is identified or solid parenchymal mass. No perinephric fluid collection. BLADDER/OTHER FINDINGS: Urinary bladder is distended 238 cc with a postvoid residual of 198 cc or 83.2 percent. Incidental note is made of an unremarkable appearing uterus and a left adnexal cyst appearing simple, measuring 3.2 x 2.4 x 3.1 cm. There is no urolithiasis or mural thickening. No overt sonographic evidence to suggest urinary bladder diverticulum. IMPRESSION: 1. Persistent moderate left hydronephrosis of indeterminate etiology. A tiny left renal subcapsular cysts is noted 1.2 cm greatest dimension. Prior CT suggests urothelial malignancy versus infectious etiology. Further clinical correlation advised if not already evaluated. 2. Bilateral moderate renal cortical atrophy. No right hydronephrosis. No solid mass bilaterally. 3. Abnormal pulse residual of 83.2 percent from prevoid volume 238 cc. 4. Incidental persistent left adnexal cyst 3.2 cm.
[2018-05-02 12:36] LABS: FOLATE 10.8 ng/mL
--- NOTE | 2018-05-02 13:19 | CP.PCM.CON ---
<Daisy Caballero - Last Filed: 05/02/18 14:15> History of Present Illness - History of Present Illness History of Present Illness: PGY-3 Infectious disease consult note for Dr. Burgos's service 87 yo female with PMH of Stage IV squamus cell cancer, L retroperitum, unknown origin, Dx 11/2017, on single-agent chemo gemcitabine, complicated by left sided hydronephrosis, Hx C.diff colitis, came to ED for AMS and and pain. Patient states that about 4 days ago she began to have abd pain mostly located in her lower abd. She states that yesterday the pain became too severe for her and she came to the ED. Per ED family states that she became altered and lethargic for the past 2 days.History was limited due to pt a poor historian. Patient also reports dysuria, she denies increased frequency. She also denies diarrhea, subjective fever, chills, chest pain, sob, bleeding, headache, n/v, rash. PMH: Bipolar disorder, dyslipidemia, OA, C.diff colitis, (multiple episodes, most recent 10/2017), hepatic cyst, Stage IV squamus cell cancer, L retroperitoneal mass, unknown origin, Dx 11/2017- only had 10 doses of chemo gemcitabine, every other week started 10 weeks ago, Left sided hydronephrosis PSH: right Port-a-cath placement, Appendectomy, ovarian cyst removal, carpal tunnel surgery, sigmoidectomy over 10 yrs ago Family history: Mom- of colon ca age 86 Social history: Former smoker quit 25 years ago. Used to smoke 1 pack every other day, Denies alcohol, illicit drug use Allergies: tetracycline- rash Review of Systems - Review of Systems All systems: reviewed and no additional remarkable complaints except Past Patient History - Infectious Disease Hx of Infectious Diseases: C.diff - Tetanus Immunizations Tetanus Immunization: Unknown - Past Social History Smoking Status: Never Smoked - CARDIAC Hx Cardiac Disorders: Yes Other/Comment: RT subclavian port - PULMONARY Hx Respiratory Disorders: Yes (SMOKED CIGARETTES BEFORE QUIT PK EVERY OTHER DAY) Hx Pneumonia: Yes Other/Comment: quit smoking over 25 yrs ago - NEUROLOGICAL Hx Neurological Disorder: Yes Hx Dizziness: Yes - HEENT Hx HEENT Problems: Yes Hx Cataracts: Yes 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) - RENAL Hx Chronic Kidney Disease: Yes (left kidney ca) Hx Renal (Kidney) Cancer: Yes (dx 11/2017) Other/Comment: 11/26/17 cystoscope, left retrograde pyelogram,unsucessful attempt to insert stent, bladder biopsies: dx left hydronephrosis, squamous cell ca - ENDOCRINE/METABOLIC Hx Endocrine Disorders: No - HEMATOLOGICAL/ONCOLOGICAL Hx Blood Disorders: Yes Hx Cancer: Yes (small tumor found in left kidney) Hx Chemotherapy: Yes (every other week started 10wks ago) Other/Comment: recently dx 11/2017 - INTEGUMENTARY Hx Dermatological Problems: Yes Other/Comment: multiple moles to back, spider veins ble, no toenails to both great toes, hammertoes 2 3 4 5 both feet, dry skin rle. 05-01-18 LEFT HIP WITH A 1X1 CM OPEN WOUND,SCABBED,WITH PUS IN THE WOUND AREA. - MUSCULOSKELETAL/RHEUMATOLOGICAL Hx Falls: Yes - GASTROINTESTINAL Hx Gastrointestinal Disorders: Yes Hx Diverticulitis: Yes Other/Comment: irritable bowel, psuedomembranous colitis, Hx c dif 3x's 2011, 10/08/2017, 08/21/2018 - GENITOURINARY/GYNECOLOGICAL Hx Genitourinary Disorders: Yes Hx Urinary Tract Infection: Yes - PSYCHIATRIC Hx Psychophysiologic Disorder: Yes Hx Anxiety: Yes Hx Bipolar Disorder: Yes Hx Depression: Yes Hx Emotional Abuse: No Hx Panic Symptoms: Yes Hx Physical Abuse: No Hx Substance Use: No - SURGICAL HISTORY Hx Appendectomy: Yes (ovarian cyst and ap together) Other/Comment: b/l exc benign cluster of breast cysts 1972, lymph node bx, right chest wall vascular access, sigmoidectomy over 10 yrs ago, sx b/l carpal tunnel - ANESTHESIA Hx Anesthesia: Yes Hx Anesthesia Reactions: No Hx Malignant Hyperthermia: No Meds Allergies/Adverse Reactions: Allergies Allergy/AdvReac Type Severity Reaction Status Date / Time tetracycline Allergy Severe ANAPHYLAXIS Verified 05/01/18 16:50 - Medications Medications: Current Medications Acetaminophen (Tylenol 325mg Tab) 650 mg PO Q4 PRN PRN Reason: Fever >100.4 F Last Admin: 05/01/18 17:01 Dose: 650 mg Aripiprazole (Abilify) 5 mg PO HS [facility] Last Admin: 05/01/18 22:54 Dose: 5 mg Fentanyl (Duragesic) 1 patch TD Q72 [facility] Heparin Sodium (Porcine) (Heparin) 5,000 units SC Q8 [facility] PRN Reason: Protocol Last Admin: 05/02/18 08:21 Dose: 5,000 units Sodium Chloride (Sodium Chloride 0.9%) 1,000 mls @ 100 mls/hr IV .Q10H [facility] Last Admin: 05/02/18 08:29 Dose: 100 mls/hr Metronidazole (Flagyl) 500 mg in 100 mls @ 100 mls/hr IVPB Q8 [facility] PRN Reason: Protocol Last Admin: 05/02/18 08:21 Dose: 100 mls/hr Magnesium Oxide (Mag-Ox) 400 mg PO BID [facility] Last Admin: 05/02/18 10:29 Dose: 400 mg Mirtazapine (Remeron) 30 mg PO [facility] Last Admin: 05/01/18 22:55 Dose: 30 mg Oxycodone HCl (Oxycodone Immediate Release Tab) 5 mg PO QID PRN PRN Reason: Pain, moderate (4-7) Last Admin: 05/01/18 18:08 Dose: 5 mg Paroxetine HCl (Paxil) 30 mg PO [facility] Last Admin: 05/01/18 22:53 Dose: 30 mg Vancomycin HCl (Vancocin 25 Mg/Ml (Oral Use)) 500 mg PO QID [facility] PRN Reason: Protocol Stop: 05/15/18 22:01 Physical Exam - Constitutional Appears: No Acute Distress - Head Exam Head Exam: ATRAUMATIC, NORMAL INSPECTION, NORMOCEPHALIC - Eye Exam Eye Exam: Normal appearance - ENT Exam ENT Exam: Mucous Membranes Moist - Respiratory Exam Respiratory Exam: Clear to Auscultation Bilateral, NORMAL BREATHING PATTERN. absent: Rhonchi, Wheezes, Respiratory Distress - Cardiovascular Exam Cardiovascular Exam: REGULAR RHYTHM. absent: Bradycardia, Tachycardia - GI/Abdominal Exam GI & Abdominal Exam: Guarding, Normal Bowel Sounds, Tenderness. absent: Distended - Extremities Exam Extremities exam: Positive for: normal inspection. Negative for: pedal edema, tenderness - Neurological Exam Neurological exam: Alert - Skin Skin Exam: Dry, Normal Color, Warm Results - Vital Signs Recent Vital Signs: Last Vital Signs Temp 98 F 05/02/18 12:00 Pulse 68 05/02/18 12:00 Resp 18 05/02/18 12:00 BP 110/60 05/02/18 12:00 Pulse Ox 95 05/02/18 06:00 - Labs Result Diagrams: 05/02/18 08:40 05/02/18 08:40 Labs: Laboratory Results - last 24 hr 05/01/18 05/02/18 05/02/18 16:32 08:40 08:40 WBC 25.9 H* RBC 2.82 L Hgb 9.3 L Hct 28.1 L MCV 99.6 MCH 33.0 MCHC 33.1 RDW 17.7 H Plt Count 350 MPV 9.2 Gran % 87.5 H Lymph % (Auto) 7.6 L Door % (Auto) 4.7 Eos % (Auto) 0.1 L Baso % (Auto) 0.1 Gran # 22.64 H Lymph # (Auto) 2.0 Door # (Auto) 1.2 H Eos # (Auto) 0.0 Baso # (Auto) 0.02 Sodium 137 Potassium 3.6 Chloride 105 Carbon Dioxide 24 Anion Gap 12 BUN 12 Creatinine 0.7 Est GFR ( Amer) > 60 Est GFR (Non-Af Amer) > 60 Random Glucose 104 Calcium 8.4 Phosphorus 3.0 Magnesium 1.9 Total Bilirubin 0.2 AST 12 L D ALT 21 Alkaline Phosphatase 109 Total Protein 4.9 L Albumin 2.4 L Globulin 2.5 Albumin/Globulin Ratio 1.0 L Stool Occult Blood Negative Assessment & Plan - Assessment and Plan (Free Text) Assessment: 87 yo female with PMH of Stage IV squamus cell cancer, L retroperitum, unknown origin, Dx 11/2017, on single-agent chemo gemcitabine, complicated by left sided hydronephrosis, Hx C.diff colitis, came to ED for AMS and and pain, severe sepsis. UA was positive for notrates and leukocyte esterase. C. diff antigen and toxin. Will order CT abd/pelvic to rule out abscess or kory colon. Continue vancomycin and flagyl. Follow up urien cultures, stool cultures. Blood cultures showed no growth after 24 hours. case seen and discussed with attending <Petr Burgos - Last Filed: 05/02/18 17:01> Meds - Medications Medications: Current Medications Acetaminophen (Tylenol 325mg Tab) 650 mg PO Q4 PRN PRN Reason: Fever >100.4 F Last Admin: 05/01/18 17:01 Dose: 650 mg Aripiprazole (Abilify) 5 mg PO HS [facility] Last Admin: 05/01/18 22:54 Dose: 5 mg Fentanyl (Duragesic) 1 patch TD Q72 [facility] Heparin Sodium (Porcine) (Heparin) 5,000 units SC Q8 [facility] PRN Reason: Protocol Last Admin: 05/02/18 14:42 Dose: 5,000 units Sodium Chloride (Sodium Chloride 0.9%) 1,000 mls @ 100 mls/hr IV .Q10H [facility] Last Admin: 05/02/18 08:29 Dose: 100 mls/hr Metronidazole (Flagyl) 500 mg in 100 mls @ 100 mls/hr IVPB Q8 [facility] PRN Reason: Protocol Last Admin: 05/02/18 14:43 Dose: 100 mls/hr Magnesium Oxide (Mag-Ox) 400 mg PO BID [facility] Last Admin: 05/02/18 10:29 Dose: 400 mg Mirtazapine (Remeron) 30 mg PO [facility] Last Admin: 05/01/18 22:55 Dose: 30 mg Oxycodone HCl (Oxycodone Immediate Release Tab) 5 mg PO QID PRN PRN Reason: Pain, moderate (4-7) Last Admin: 05/02/18 16:27 Dose: 5 mg Paroxetine HCl (Paxil) 30 mg PO [facility] Last Admin: 05/01/18 22:53 Dose: 30 mg Vancomycin HCl (Vancocin 25 Mg/Ml (Oral Use)) 500 mg PO QID [facility] PRN Reason: Protocol Stop: 05/15/18 22:01 Last Admin: 05/02/18 14:42 Dose: 500 mg Results - Vital Signs Recent Vital Signs: Last Vital Signs Temp 98 F 05/02/18 12:00 Pulse 111 H 05/02/18 14:00 Resp 18 05/02/18 12:00 BP 110/60 05/02/18 12:00 Pulse Ox 95 05/02/18 06:00 - Labs Result Diagrams: 05/02/18 08:40 05/02/18 08:40 Labs: Laboratory Results - last 24 hr 05/02/18 05/02/18 08:40 08:40 WBC 25.9 H* RBC 2.82 L Hgb 9.3 L Hct 28.1 L MCV 99.6 MCH 33.0 MCHC 33.1 RDW 17.7 H Plt Count 350 MPV 9.2 Gran % 87.5 H Lymph % (Auto) 7.6 L Door % (Auto) 4.7 Eos % (Auto) 0.1 L Baso % (Auto) 0.1 Gran # 22.64 H Lymph # (Auto) 2.0 Door # (Auto) 1.2 H Eos # (Auto) 0.0 Baso # (Auto) 0.02 Sodium 137 Potassium 3.6 Chloride 105 Carbon Dioxide 24 Anion Gap 12 BUN 12 Creatinine 0.7 Est GFR ( Amer) > 60 Est GFR (Non-Af Amer) > 60 Random Glucose 104 Calcium 8.4 Phosphorus 3.0 Magnesium 1.9 Total Bilirubin 0.2 AST 12 L D ALT 21 Alkaline Phosphatase 109 Total Protein 4.9 L Albumin 2.4 L Globulin 2.5 Albumin/Globulin Ratio 1.0 L Assessment & Plan - Assessment and Plan (Free Text) Assessment: Infectious Diseases Attending Physician Addendum Patient seen and examined, discussed with medical auditor. I have reviewed the pertinent clinical information for the patient, including history of present illness, medical, personal and social histories, lab results and imaging findings. I agree with the above findings, assessment and plan. In addition, we have started the patient on high dose PO Vancomycin and IV Flagyl for severe sepsis from severe C. diff. pancolitis. Reviewed CT A/P which is also showing enlarging necrotic retroperitoneal mass - patient with stage 4 cancer. Overall prognosis is poor.
[2018-05-02] MEDS ORDERED: Iohexol 350 MG/100 ML VIAL ONE (13:39)
--- NOTE | 2018-05-02 15:17 | CT ---
Date of service: 05/02/2018 PROCEDURE: CT Abdomen and Pelvis with contrast HISTORY: r/o sbo COMPARISON: And pelvis CT with contrast 04/05/2018. TECHNIQUE: Contrast dose: Omnipaque 350, 100 cc Radiation dose: Total exam DLP = 189.26 mGy-cm. This CT exam was performed using one or more of the following dose reduction techniques: Automated exposure control, adjustment of the mA and/or kV according to patient size, and/or use of iterative reconstruction technique. FINDINGS: LOWER THORAX: Bibasilar atelectasis is mild and is seen greater at the left than right sides with stable cardiomegaly. LIVER: A tiny lucency at the right lobe liver near the dome is stable as well as a cyst at the watershed portion measuring 2.2 cm. GALLBLADDER AND BILE DUCTS: Unremarkable. PANCREAS: Unremarkable. No gross lesion or ductal dilatation. SPLEEN: Unremarkable. ADRENALS: Unremarkable. No mass. KIDNEYS AND URETERS: There is persistent left hydronephrosis caused by retroperitoneal poorly enhancing mass enlarging size measuring 6.0 by 4.8 by 3.6 cm (superoinferior by anteroposterior by transverse dimensions). Right kidney stable including a few tiny cortical lucencies remain too small for carotid 2 evaluate at the upper and midpole. A lower pole lucency is stable remaining 1.6 cm greatest dimension. VASCULATURE: Nonaneurysmal atherosclerotic abdominal aorta is reiterated. BOWEL: Bowel is not appear obstructed however there is marked thickening of the colon suspicious for pancolitis including the rectum. APPENDIX: Appendix not identified. No CT evidence of appendicitis. PERITONEUM: Unremarkable. No free fluid. No free air. LYMPH NODES: With the possibly that the mass at the left retroperitoneum may or represent a necrotic metastatic lymph node, remaining lymph nodes are unremarkable overall. BLADDER: Unremarkable. REPRODUCTIVE: 3.5 cm left adnexal cyst stable, seen in prior urinary bladder ultrasound earlier today 11/27/2017. BONES: No acute fracture. OTHER FINDINGS: None. IMPRESSION: 1. Pancolitis. No bowel obstruction abscess or ascites. 2. Enlarging left retroperitoneal mass with stable left moderate hydroureteronephrosis. 3. This left ovarian cyst again appreciated.
[2018-05-02] MEDS: oxyCODONE 5 mg Immediate Release Tab PO PRN (16:27)
--- NOTE | 2018-05-02 21:05 | CP.PCM.CON ---
History of Present Illness - History of Present Illness History of Present Illness: Covering Dr. 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 The patient reports to worsening abdominal cramps associated with diarrhea. She denies fevers and chills. She feels she is tolerating her chemotherapy well but notes her memory is declining. A CT scan of the abdomen revealed colitis and enlarging retroperitoneal mass. Past medical history: squamous cell carcinoma Past surgical history: Appendectomy, portacath Family history: Mother had colon cancer Social history: Former tobacco use, denies alcohol, and illicit drug use. Allergies: Tetracycline Review of systems: All remaining review of systems including HEENT, cardiovascular, respiratory, gastrointestinal, genitourinary, musculoskeletal, dermatologic, neurologic, and psychiatric are negative unless mentioned in the HPI. 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) - RENAL Hx Chronic Kidney Disease: Yes (left kidney ca) Hx Renal (Kidney) Cancer: Yes (dx 11/2017) Other/Comment: 11/26/17 cystoscope, left retrograde pyelogram,unsucessful attempt to insert stent, bladder biopsies: dx left hydronephrosis, squamous cell ca - ENDOCRINE/METABOLIC Hx Endocrine Disorders: No - HEMATOLOGICAL/ONCOLOGICAL Hx Blood Disorders: Yes Hx Cancer: Yes (small tumor found in left kidney) Hx Chemotherapy: Yes (every other week started 10wks ago) Other/Comment: recently dx 11/2017 - INTEGUMENTARY Hx Dermatological Problems: Yes Other/Comment: multiple moles to back, spider veins ble, no toenails to both great toes, hammertoes 2 3 4 5 both feet, dry skin rle. 8-22-18 LEFT HIP WITH A 1X1 CM OPEN WOUND,SCABBED,WITH PUS IN THE WOUND AREA. - MUSCULOSKELETAL/RHEUMATOLOGICAL Hx Arthritis: Yes - GASTROINTESTINAL Hx Gastrointestinal Disorders: Yes Hx Diverticulitis: Yes Other/Comment: irritable bowel, psuedomembranous colitis, Hx c dif 3x's 2011, 10/08/2017, 08/21/2018 - GENITOURINARY/GYNECOLOGICAL Hx Genitourinary Disorders: Yes Hx Urinary Tract Infection: Yes - PSYCHIATRIC Hx Psychophysiologic Disorder: Yes Hx Anxiety: Yes Hx Bipolar Disorder: Yes Hx Depression: Yes Hx Emotional Abuse: No Hx Panic Symptoms: Yes Hx Physical Abuse: No Hx Substance Use: No - SURGICAL HISTORY Hx Appendectomy: Yes (ovarian cyst and ap together) Other/Comment: b/l exc benign cluster of breast cysts 1972, lymph node bx, right chest wall vascular access, sigmoidectomy over 10 yrs ago, sx b/l carpal tunnel - ANESTHESIA Hx Anesthesia: Yes Hx Anesthesia Reactions: No Hx Malignant Hyperthermia: No Meds Allergies/Adverse Reactions: Allergies Allergy/AdvReac Type Severity Reaction Status Date / Time tetracycline Allergy Severe ANAPHYLAXIS Verified 05/01/18 16:50 - Medications Medications: Current Medications Acetaminophen (Tylenol 325mg Tab) 650 mg PO Q4 PRN PRN Reason: Fever >100.4 F Last Admin: 05/01/18 17:01 Dose: 650 mg Aripiprazole (Abilify) 5 mg PO HS [facility] Last Admin: 05/01/18 22:54 Dose: 5 mg Fentanyl (Duragesic) 1 patch TD Q72 [facility] Heparin Sodium (Porcine) (Heparin) 5,000 units SC Q8 [facility] PRN Reason: Protocol Last Admin: 05/02/18 14:42 Dose: 5,000 units Sodium Chloride (Sodium Chloride 0.9%) 1,000 mls @ 100 mls/hr IV .Q10H [facility] Last Admin: 05/02/18 08:29 Dose: 100 mls/hr Metronidazole (Flagyl) 500 mg in 100 mls @ 100 mls/hr IVPB Q8 [facility] PRN Reason: Protocol Last Admin: 05/02/18 14:43 Dose: 100 mls/hr Magnesium Oxide (Mag-Ox) 400 mg PO BID [facility] Last Admin: 05/02/18 17:30 Dose: 400 mg Mirtazapine (Remeron) 30 mg PO HS [facility] Last Admin: 05/01/18 22:55 Dose: 30 mg Oxycodone HCl (Oxycodone Immediate Release Tab) 5 mg PO QID PRN PRN Reason: Pain, moderate (4-7) Last Admin: 05/02/18 16:27 Dose: 5 mg Paroxetine HCl (Paxil) 30 mg PO HS [facility] Last Admin: 05/01/18 22:53 Dose: 30 mg Vancomycin HCl (Vancocin 25 Mg/Ml (Oral Use)) 500 mg PO QID [facility] PRN Reason: Protocol Stop: 05/15/18 22:01 Last Admin: 05/02/18 17:29 Dose: 500 mg Physical Exam - Head Exam Head Exam: ATRAUMATIC - Eye Exam Eye Exam: Normal appearance - ENT Exam ENT Exam: Mucous Membranes Dry - Respiratory Exam Respiratory Exam: NORMAL BREATHING PATTERN - Cardiovascular Exam Cardiovascular Exam: +S1, +S2 - GI/Abdominal Exam GI & Abdominal Exam: Normal Bowel Sounds - Psychiatric Exam Psychiatric exam: Normal Affect, Normal Mood - Skin Skin Exam: Warm Results - Vital Signs Recent Vital Signs: Last Vital Signs Temp 98 F 05/02/18 17:43 Pulse 128 H 05/02/18 18:23 Resp 18 05/02/18 17:43 BP 142/92 H 05/02/18 17:43 Pulse Ox 99 05/02/18 17:43 - Labs Result Diagrams: 05/03/18 06:00 05/03/18 06:00 Labs: Laboratory Results - last 24 hr 05/02/18 05/02/18 08:40 08:40 WBC 25.9 H* RBC 2.82 L Hgb 9.3 L Hct 28.1 L MCV 99.6 MCH 33.0 MCHC 33.1 RDW 17.7 H Plt Count 350 MPV 9.2 Gran % 87.5 H Lymph % (Auto) 7.6 L Wayne % (Auto) 4.7 Eos % (Auto) 0.1 L Baso % (Auto) 0.1 Gran # 22.64 H Lymph # (Auto) 2.0 Wayne # (Auto) 1.2 H Eos # (Auto) 0.0 Baso # (Auto) 0.02 Sodium 137 Potassium 3.6 Chloride 105 Carbon Dioxide 24 Anion Gap 12 BUN 12 Creatinine 0.7 Est GFR ( Amer) > 60 Est GFR (Non-Af Amer) > 60 Random Glucose 104 Calcium 8.4 Phosphorus 3.0 Magnesium 1.9 Total Bilirubin 0.2 AST 12 L D ALT 21 Alkaline Phosphatase 109 Total Protein 4.9 L Albumin 2.4 L Globulin 2.5 Albumin/Globulin Ratio 1.0 L Assessment & Plan (1) Squamous cell carcinoma Assessment and Plan: unknonw primary on palliative single agent gemcitabine imaging shows enlargement of tumor outpatient f/u with her primary oncologist Dr. Hernandez Status: Acute (2) Leukocytosis Assessment and Plan: improving on antibiotics Status: Acute (3) Anemia Assessment and Plan: likely chronic disease and chemotherapy will check retic count, b12, folate, ferritin to further characterize Thank you for this interesting consult. Status: Acute
[2018-05-03] MEDS: oxyCODONE 5 mg Immediate Release Tab PO PRN ×4 (01:26→19:52)
[2018-05-03] MEDS: metroNIDAZOLE IV 500 mg/100 ml 500 MG/100 ML BAG IVPB SCH ×3 (05:01→21:15)
[2018-05-03] MEDS: Sodium Chloride 0.9% 1,000 ML IV SCH ×3 (05:01→21:16)
[2018-05-03 06:54] LABS: BASO # 0.02 K/mm3 (0.0-2.0); BASO % 0.1 % (0.0-3.0); EOS # 0.2 (0.0-0.7); EOS % 0.9 % (1.5-5.0); GRAN # 13.76 (1.4-6.5); GRAN % 76.7 % (50.0-68.0); HEMOGLOBIN 9.1 g/dL (12.0-16.0); LYMPH # 2.7 (1.2-3.4); MEAN CORPUSCULAR HEMOGLOBIN 33.7 pg (25.0-35.0); MEAN CORPUSCULAR HGB CONC 33.7 g/dl (31.0-37.0); MEAN PLATELET VOLUME 8.8 fl (7.0-11.0); MONO # 1.3 (0.1-0.6); MONO % 7.3 % (1.0-6.0); RBC 2.7 10^6/uL (3.5-6.1); RED CELL DISTRIBUTION WIDTH 17.7 % (11.5-14.5)
[2018-05-03 06:59] LABS: ALB/GLOB RATIO 0.9 (1.1-1.8); ALBUMIN 2.3 g/dL (3.0-4.8); ALT/SGPT 22 U/L (7-56); AST/SGOT 19 U/L (14-36); BLOOD UREA NITROGEN 9 mg/dL (7-21); CALCIUM 7.9 mg/dL (8.4-10.5); GFR NON-AFRICAN AMERICAN > 60
--- NOTE | 2018-05-03 08:08 | PN ---
Copied To: Oleg Floyd MD Attending MD: Oleg Floyd MD DATE: 05/03/2018 SUBJECTIVE: The patient has no complaints of any chest pain. No shortness of breath. No headaches or dizziness. PHYSICAL EXAMINATION VITAL SIGNS: Temperature is 98.6, pulse of 120, blood pressure is 142/82, respirations 12. GENERAL: The patient is lying in bed, flat, comfortable. HEENT: No oral lesion. Anicteric sclerae. Moist mucosa. NECK: No JVD, adenopathy, or thyromegaly. CARDIOVASCULAR: S1 and S2, regular. No murmurs, rubs, or gallops. LUNGS: Clear to auscultation bilaterally. No wheeze, rales, or rhonchi. ABDOMEN: Bowel sounds are positive, soft, nontender and nondistended. EXTREMITIES: No cyanosis, clubbing or edema. LABORATORY DATA: CT of the abdomen and pelvis shows pancolitis, enlarging left retroperitoneal mass with stable left moderate hydroureteronephrosis. ASSESSMENT: 1. Clostridium difficile colitis. 2. Left abdominal mass secondary to squamous cell carcinoma, unknown primary. 3. Left moderate hydroureteronephrosis. 4. Anxiety. 5. Depression. PLAN: The patient is currently comfortable. She has C. diff colitis. She is being treated with IV antibiotics. The patient has persistent moderate left hydronephrosis. I did speak to the patient's daughter yesterday twice to give her an update. The patient is tachycardiac as the sinus tachycardia. She is going to continue with aripiprazole. She is on Flagyl for her C. diff colitis. She is also on vancomycin and the patient is on IV fluids with normal saline at 100 an hour. She is on Paxil. She is on heparin for DVT prophylaxis. She is on oxycodone for pain medications. She is on a heart-healthy diet. Oleg Floyd MD
[2018-05-03] MEDS ORDERED: Potassium Chloride 20 mEq ER Tab PO ONE ×2 (08:10→20:00)
[2018-05-03] MEDS: Vancomycin 25 MG/ML PO SCH ×4 (09:05→21:13)
[2018-05-03] MEDS: Magnesium Oxide 400 mg Tab UD PO SCH ×2 (09:05→17:54)
--- NOTE | 2018-05-03 21:13 | CP.PCM.PN ---
Subjective - Date & Time of Evaluation Date of Evaluation: 05/03/18 Time of Evaluation: 11:10 - Subjective Subjective: Diarrhea and abdominal pain are improving, no fevers, not in distress. Objective - Vital Signs/Intake and Output Vital Signs (last 24 hours): Temp Pulse Resp BP Pulse Ox 98.4 F 107 H 20 141/96 H 95 05/03/18 06:00 05/03/18 06:00 05/03/18 06:00 05/03/18 06:00 05/03/18 06:00 Intake and Output: 05/03/18 05/03/18 06:59 18:59 Intake Total 1400 Balance 1400 - Medications Medications: Current Medications Acetaminophen (Tylenol 325mg Tab) 650 mg PO Q4 PRN PRN Reason: Fever >100.4 F Last Admin: 05/01/18 17:01 Dose: 650 mg Aripiprazole (Abilify) 5 mg PO [facility] Last Admin: 05/02/18 21:23 Dose: 5 mg Fentanyl (Duragesic) 1 patch TD Q72 [facility] Heparin Sodium (Porcine) (Heparin) 5,000 units SC Q8 [facility] PRN Reason: Protocol Last Admin: 05/03/18 05:01 Dose: 5,000 units Metronidazole (Flagyl) 500 mg in 100 mls @ 100 mls/hr IVPB Q8 [facility] PRN Reason: Protocol Last Admin: 05/03/18 05:01 Dose: 100 mls/hr Sodium Chloride (Sodium Chloride 0.9%) 1,000 mls @ 75 mls/hr IV .[id number] [facility] Stop: 05/04/18 10:39 Last Admin: 05/03/18 08:00 Dose: 75 mls/hr Magnesium Oxide (Mag-Ox) 400 mg PO BID [facility] Last Admin: 05/03/18 09:05 Dose: 400 mg Mirtazapine (Remeron) 30 mg PO [facility] Last Admin: 05/02/18 21:23 Dose: 30 mg Oxycodone HCl (Oxycodone Immediate Release Tab) 5 mg PO QID PRN PRN Reason: Pain, moderate (4-7) Last Admin: 05/03/18 09:05 Dose: 5 mg Paroxetine HCl (Paxil) 30 mg PO [facility] Last Admin: 05/02/18 21:23 Dose: 30 mg Potassium Chloride (K-Dur 20 Meq Er Tab) 40 meq PO ONCE ONE Stop: 05/03/18 20:01 Vancomycin HCl (Vancocin 25 Mg/Ml (Oral Use)) 500 mg PO QID [facility] PRN Reason: Protocol Stop: 05/15/18 22:01 Last Admin: 05/03/18 09:05 Dose: 500 mg - Labs Labs: 05/03/18 06:00 05/03/18 06:00 PT 13.6 SECONDS (9.4-12.5) H 05/01/18 10:05 INR 1.18 05/01/18 10:05 APTT 33.4 Seconds (25.1-36.5) 05/01/18 10:05 - Constitutional Appears: Chronically Ill - Head Exam Head Exam: NORMAL INSPECTION - Neck Exam Neck Exam: absent: Meningismus - Respiratory Exam Respiratory Exam: Decreased Breath Sounds - Cardiovascular Exam Cardiovascular Exam: +S1, +S2 - GI/Abdominal Exam GI & Abdominal Exam: Soft, Tenderness (mild). absent: Distended, Guarding, Rigid, Rebound Assessment and Plan - Assessment and Plan (Free Text) Plan: Assessment severe sepsis from severe C. diff. pancolitis, slowly improving S/P sepsis due to UTI with Klebsiella necrotic retroperitoneal mass - patient with stage 4 cancer history of sepsis due to severe C. diff. colitis history of sepsis due to left lower lobe community-acquired pneumonia R/O UTI from Klebsiella depression cataracts right ear deafness history of C. diff. infection irritable bowel syndrome S/P appendectomy Plan continue high dose PO Vancomycin and IV Flagyl day 2 to complete 10-14 days - once diarrhea is resolved, may d/c IV Flagyl will continue to monitor clinically overall prognosis is poor
[2018-05-03] MEDS ORDERED: Metoprolol 1 mg/ml Inj IVP ONE (23:58)
[2018-05-04] MEDS: metroNIDAZOLE IV 500 mg/100 ml 500 MG/100 ML BAG IVPB SCH ×3 (06:31→21:40)
[2018-05-04 08:05] LABS: BASO # 0.01 K/mm3 (0.0-2.0); BASO % 0.1 % (0.0-3.0); EOS # 0.1 (0.0-0.7); EOS % 0.6 % (1.5-5.0); GRAN # 11.9 (1.4-6.5); GRAN % 77.3 % (50.0-68.0); HEMOGLOBIN 8.8 g/dL (12.0-16.0); LYMPH # 2.2 (1.2-3.4); LYMPH % 14.1 % (22.0-35.0); MEAN CELL VOLUME 98.9 fl (80.0-105.0); MEAN CORPUSCULAR HEMOGLOBIN 32.4 pg (25.0-35.0); MEAN CORPUSCULAR HGB CONC 32.7 g/dl (31.0-37.0); MEAN PLATELET VOLUME 8.7 fl (7.0-11.0); MONO # 1.2 (0.1-0.6); MONO % 7.9 % (1.0-6.0); RBC 2.72 10^6/uL (3.5-6.1); RED CELL DISTRIBUTION WIDTH 17.5 % (11.5-14.5); WHITE BLOOD COUNT 15.4 10^3/ul (4.5-11.0)
[2018-05-04 08:17] LABS: ALB/GLOB RATIO 0.9 (1.1-1.8); ALBUMIN 2.4 g/dL (3.0-4.8); ALT/SGPT 25 U/L (7-56); AST/SGOT 28 U/L (14-36); BLOOD UREA NITROGEN 6 mg/dL (7-21); GFR NON-AFRICAN AMERICAN > 60
[2018-05-04] MEDS: oxyCODONE 5 mg Immediate Release Tab PO PRN ×3 (08:25→19:12)
[2018-05-04] MEDS: Magnesium Oxide 400 mg Tab UD PO SCH ×2 (09:22→17:24)
[2018-05-04] MEDS: Vancomycin 25 MG/ML PO SCH ×4 (09:22→21:51)
[2018-05-04] MEDS: Potassium & Sodium Phosphate PO SCH ×2 (12:04→18:29)
--- NOTE | 2018-05-04 13:00 | PN ---
Copied To: Sebastian Álvarez MD Attending MD: Sebastian Álvarez MD DATE: 05/04/2018 SUBJECTIVE: The patient is in bed, in no acute distress, nontoxic. PHYSICAL EXAMINATION: VITAL SIGNS: On exam, temperature is 98, blood pressure is 145/80, respiratory rate of 20. HEENT: Unremarkable. NECK: Supple. LUNGS: Have decreased breath sounds. HEART: Normal S1, S2. ABDOMEN: Soft, nontender. LABORATORY DATA: Laboratory examination reveals a white count of 15,400, hemoglobin of 8. Chemistries reveals the BUN of 6, creatinine of 0.7 and the urinalysis is noted. Microbiology reveals the urine cultures, probable contamination. The stool for C. Diff and cultures, no Salmonella, no Shigella, no Campylobacter and still antigen and toxin are positive. The blood cultures are no growth. Review of orders reveals the patient to be on p.o. vancomycin. ASSESSMENT AND PLAN: An 87-year-old female who is seen earlier in [facility], bed 2 with severe sepsis secondary to severe pseudomembranous colitis, improving in a patient with history of depression, history of sepsis with left lower community-acquired pneumonia and urinary tract infection with Klebsiella and history of irritable bowel syndrome, currently on p.o. vancomycin, would complete 10-14 days of p.o. vancomycin. The patient is also on IV Flagyl. Once the diarrhea resolves, may discontinue the IV Flagyl and complete with p.o. vancomycin for 10-14 days. Sebastian Álvarez MD
--- NOTE | 2018-05-04 17:09 | PN ---
Copied To: Carla Magana MD Attending MD: Carla Magana MD DATE: 05/04/2018 SUBJECTIVE: The patient is 87 years old, seen and examined. She states she feels a lot better. She is eating and tolerating; as per nurse, no diarrhea; however, she is anxious and feel lonely; whenever somebody go to visit. She wants that person to be with her. As per nurse, she is eating and tolerating. No more night diarrhea noted. PHYSICAL EXAMINATION: VITAL SIGNS: She is afebrile, pulse 102, respirations 20, blood pressure 145/87. LUNGS: Bilateral fair airflow. No rhonchi or crackle. HEART: S1 and S2 audible. ABDOMEN: Soft, nontender. No rebound. No guarding. NEUROLOGICAL: She is awake and alert, forgetful. LABORATORY DATA: WBC is 15.4, hemoglobin 8.8, hematocrit 26.9, and platelets 373. Chemistry: Sodium 137, potassium 3.9, chloride 105, CO2 of 24, BUN 6, creatinine 0.7, blood sugar of 99. Phosphorus 1.9. Urine cultures are negative. Stool for C. diff is positive. ASSESSMENT: 1. Clostridium difficile colitis. 2. Leukocytosis. 3. Anxiety disorder. 4. Electrolyte imbalance. PLAN: I will start her on standing order of 0.25 of Xanax, start her on Neutra-Phos. The patient is hemodynamically stable. We will discharge to regular floor or TCU if bed is available. Carla Magana MD
[2018-05-05] MEDS: oxyCODONE 5 mg Immediate Release Tab PO PRN ×2 (07:25→12:03)
[2018-05-05 08:56] VITALS: PULSE 107
[2018-05-05] MEDS: Magnesium Oxide 400 mg Tab UD PO SCH ×2 (10:21→17:09)
[2018-05-05] MEDS: Potassium & Sodium Phosphate PO SCH ×2 (10:22→17:09)
[2018-05-05] MEDS: Vancomycin 25 MG/ML PO SCH ×4 (11:15→21:06)
--- NOTE | 2018-05-05 14:59 | PN ---
Copied To: Sebastian Álvarez MD Attending MD: Sebastian Álvarez MD DATE: 05/05/2018 SUBJECTIVE: The patient is in bed, in no acute distress, nontoxic. PHYSICAL EXAMINATION: VITAL SIGNS: On exam, temperature is 98, blood pressure is 160/80, respiratory rate 20. HEENT: Examination of HEENT is unremarkable. NECK: Supple. LUNGS: Have decreased breath sounds. HEART: Normal S1, S2. ABDOMEN: Soft, nontender. LABORATORY DATA: Laboratory examination reveals the patient's white count of 15,400, hemoglobin of 8, platelets of 373. Chemistries are noted and microbiology reveals the blood cultures are no growth and urine cultures contamination. The stool is positive C. Diff antigen and toxin. ASSESSMENT AND PLAN: An 87-year-old female seen earlier in 577, bed 1 with severe sepsis secondary to severe pseudomembranous colitis, now diarrhea has resolved, would complete with p.o. vancomycin 14 days. We will discontinue the IV Flagyl. Sebastian Álvarez MD
--- NOTE | 2018-05-05 19:09 | PN ---
Copied To: Carla Magana MD Attending MD: Carla Magana MD DATE: 05/05/2018 SUBJECTIVE: The patient is 87 years old, seen and examined. Complained of abdominal discomfort. No more diarrhea. Does not want to go to TCU. Does not want to go home either. She says she will not go anywhere until she speak to Dr. Floyd. Eating and tolerating. No diarrhea noticed. PHYSICAL EXAMINATION VITAL SIGNS: She is afebrile, pulse 107, respirations 20, blood pressure 164/82. LUNGS: Bilateral fair airflow. No rhonchi or crackle. HEART: S1 and S2 audible. ABDOMEN: Soft, nontender. No rebound, no guarding. NEUROLOGIC: She is awake, alert, oriented, and communicative. LABORATORY EXAM: WBC is 15.4, hemoglobin 8.8, hematocrit 26.9, and platelets 373. Chemistry: Sodium 137, potassium 3.9, chloride 105, CO2 of 24. BUN 6, creatinine 0.7. Blood sugar 99. Phosphorus is 1.9. ASSESSMENT: 1. Sepsis secondary to Clostridium difficile colitis. 2. Hypertension. 3. Anxiety disorder. 4. Leukocytosis, resolving. 5. Electrolyte imbalance, improving. PLAN: The patient is clinically stable, wants to go home, but not today. Continue current medications. Follow up CBC and CMP in a.m. Carla Magana MD
[2018-05-05 22:00] VITALS: BP 160/88; RESP 18; TEMP 98.8; O2SAT 100
[2018-05-06 07:49] LABS: BASO # 0.02 K/mm3 (0.0-2.0); BASO % 0.2 % (0.0-3.0); EOS # 0.2 (0.0-0.7); EOS % 1.3 % (1.5-5.0); GRAN # 8.07 (1.4-6.5); GRAN % 67.5 % (50.0-68.0); HEMOGLOBIN 9.3 g/dL (12.0-16.0); LYMPH # 2.4 (1.2-3.4); LYMPH % 20.1 % (22.0-35.0); MEAN CELL VOLUME 97.6 fl (80.0-105.0); MEAN CORPUSCULAR HEMOGLOBIN 32.1 pg (25.0-35.0); MEAN CORPUSCULAR HGB CONC 32.9 g/dl (31.0-37.0); MEAN PLATELET VOLUME 9.1 fl (7.0-11.0); MONO # 1.3 (0.1-0.6); MONO % 10.9 % (1.0-6.0); RBC 2.9 10^6/uL (3.5-6.1); RED CELL DISTRIBUTION WIDTH 17.6 % (11.5-14.5)
[2018-05-06 08:05] LABS: ALB/GLOB RATIO 0.9 (1.1-1.8); ALBUMIN 2.3 g/dL (3.0-4.8); ALT/SGPT 20 U/L (7-56); AST/SGOT 22 U/L (14-36); BLOOD UREA NITROGEN 5 mg/dL (7-21); CALCIUM 7.6 mg/dL (8.4-10.5); GFR NON-AFRICAN AMERICAN > 60
[2018-05-06] MEDS: oxyCODONE 5 mg Immediate Release Tab PO PRN ×2 (08:13→14:17)
[2018-05-06] MEDS ORDERED: Potassium Chloride 20 mEq ER Tab PO STA (09:40)
[2018-05-06] MEDS: Potassium & Sodium Phosphate PO SCH (10:04)
[2018-05-06] MEDS: Magnesium Oxide 400 mg Tab UD PO SCH (10:04)
[2018-05-06] MEDS: Vancomycin 25 MG/ML PO SCH ×2 (10:05→14:09)
--- NOTE | 2018-05-06 10:15 | CP.PCM.DIS ---
<Cal Chang - Last Filed: 05/06/18 10:12> Provider - Provider Date of Admission: 05/01/18 13:11 Attending physician: Oleg Floyd MD Consults: Heme/Onc - Dr. Hernandez ID - Dr. Burgos Time Spent in preparation of Discharge (in minutes): 45 Diagnosis - Discharge Diagnosis (1) Anemia Status: Chronic (2) Leukocytosis Status: Acute (3) Sepsis Status: Resolved (4) Squamous cell carcinoma Status: Chronic (5) Stool culture positive for Clostridium difficile Status: Acute (6) Pseudomembranous colitis Status: Acute Hospital Course - Lab Results Lab Results: Micro Results 05/01/18 21:43 Urine,Clean Catch Urine Culture - Final <10,000 CFU/ML. MULTIPLE SPECIES. PROBABLE CONTAMINATION. Most Recent Lab Values WBC 12.0 10^3/ul (4.5-11.0) H D 05/06/18 07:40 RBC 2.90 10^6/uL (3.5-6.1) L 05/06/18 07:40 Hgb 9.3 g/dL (12.0-16.0) L 05/06/18 07:40 Hct 28.3 % (36.0-48.0) L 05/06/18 07:40 MCV 97.6 fl (80.0-105.0) 05/06/18 07:40 MCH 32.1 pg (25.0-35.0) 05/06/18 07:40 MCHC 32.9 g/dl (31.0-37.0) 05/06/18 07:40 RDW 17.6 % (11.5-14.5) H 05/06/18 07:40 Plt Count 385 10^3/uL (120.0-450.0) 05/06/18 07:40 MPV 9.1 fl (7.0-11.0) 05/06/18 07:40 Gran % 67.5 % (50.0-68.0) 05/06/18 07:40 Lymph % (Auto) 20.1 % (22.0-35.0) L 05/06/18 07:40 [place] % (Auto) 10.9 % (1.0-6.0) H 05/06/18 07:40 Eos % (Auto) 1.3 % (1.5-5.0) L 05/06/18 07:40 Baso % (Auto) 0.2 % (0.0-3.0) 05/06/18 07:40 Gran # 8.07 (1.4-6.5) H 05/06/18 07:40 Lymph # (Auto) 2.4 (1.2-3.4) 05/06/18 07:40 [place] # (Auto) 1.3 (0.1-0.6) H 05/06/18 07:40 Eos # (Auto) 0.2 (0.0-0.7) 05/06/18 07:40 Baso # (Auto) 0.02 K/mm3 (0.0-2.0) 05/06/18 07:40 PT 13.6 SECONDS (9.4-12.5) H 05/01/18 10:05 INR 1.18 05/01/18 10:05 APTT 33.4 Seconds (25.1-36.5) 05/01/18 10:05 pO2 31 mm/Hg (30-55) 05/01/18 10:30 VBG pH 7.36 (7.32-7.43) 05/01/18 10:30 VBG pCO2 47.0 (40-60) 05/01/18 10:30 VBG HCO3 26.6 mmol/l (21-28) 05/01/18 10:30 VBG Total CO2 28.0 mmol.L (22-28) 05/01/18 10:30 VBG O2 Sat (Calc) 63.6 % (40-65) 05/01/18 10:30 VBG Base Excess 0.6 mmol/L (0.0-2.0) 05/01/18 10:30 VBG Potassium 5.0 mmol/L (3.6-5.2) 05/01/18 10:30 Sodium 133.0 mmol/L (132-148) 05/01/18 10:30 Chloride 100.0 mmol/L (98-107) 05/01/18 10:30 Glucose 104 mg/dl (65-105) 05/01/18 10:30 Lactate 1.7 mmol/L (0.7-2.1) 05/01/18 10:30 FiO2 21.0 % 05/01/18 10:30 Sodium 136 mmol/L (132-148) 05/06/18 07:40 Potassium 3.5 mmol/L (3.6-5.0) L 05/06/18 07:40 Chloride 103 mmol/L (98-107) 05/06/18 07:40 Carbon Dioxide 26 mmol/L (21-33) 05/06/18 07:40 Anion Gap 10 (10-20) 05/06/18 07:40 BUN 5 mg/dL (7-21) L 05/06/18 07:40 Creatinine 0.6 mg/dl (0.7-1.2) L 05/06/18 07:40 Est GFR ( Amer) > 60 05/06/18 07:40 Est GFR (Non-Af Amer) > 60 05/06/18 07:40 Random Glucose 89 mg/dL (70-110) 05/06/18 07:40 Calcium 7.6 mg/dL (8.4-10.5) L 05/06/18 07:40 Phosphorus 3.0 mg/dL (2.5-4.5) 05/06/18 07:40 Magnesium 1.5 mg/dL (1.7-2.2) L 05/06/18 07:40 Total Bilirubin 0.2 mg/dL (0.2-1.3) 05/06/18 07:40 AST 22 U/L (14-36) 05/06/18 07:40 ALT 20 U/L (7-56) 05/06/18 07:40 Alkaline Phosphatase 75 U/L (38-126) 05/06/18 07:40 Total Protein 4.9 g/dL (5.8-8.3) L 05/06/18 07:40 Albumin 2.3 g/dL (3.0-4.8) L 05/06/18 07:40 Globulin 2.6 gm/dL 05/06/18 07:40 Albumin/Globulin Ratio 0.9 (1.1-1.8) L 05/06/18 07:40 Lipase 25 U/L (23-300) 05/01/18 12:06 Vitamin B12 986 pg/mL (239-931) H 05/01/18 12:40 Folate 10.8 ng/mL 05/01/18 12:40 Procalcitonin 20.28 NG/ML (0.19-0.49) H 05/01/18 10:05 Venous Blood Potassium 5.0 mmol/L (3.6-5.2) 05/01/18 10:30 Urine Color Yellow (YELLOW) 05/01/18 09:46 Urine Appearance Clear (CLEAR) 05/01/18 09:46 Urine pH 6.0 (4.7-8.0) 05/01/18 09:46 Ur Specific Emerson 1.025 (1.005-1.035) 05/01/18 09:46 Urine Protein 100 mg/dL (<30 mg/dL) H 05/01/18 09:46 Urine Glucose (UA) Negative mg/dL (NEGATIVE) 05/01/18 09:46 Urine Ketones 15 mg/dL (NEGATIVE) H 05/01/18 09:46 Urine Blood Large (NEGATIVE) H 05/01/18 09:46 Urine Nitrate Positive (NEGATIVE) H 05/01/18 09:46 Urine Bilirubin Negative (NEGATIVE) 05/01/18 09:46 Urine Urobilinogen 0.2 E.U./dL (<1 E.U./dL) 05/01/18 09:46 Ur Leukocyte Esterase Trace Gwendolyn/uL (NEGATIVE) H 05/01/18 09:46 Urine RBC 25 - 30 /hpf (0-2) 05/01/18 09:46 Urine WBC 5 - 10 /hpf (0-6) 05/01/18 09:46 Ur Epithelial Cells 4 - 5 /hpf (0-5) 05/01/18 09:46 Amorphous Sediment Few 05/01/18 09:46 Urine Bacteria Many (NEG) 05/01/18 09:46 Fine Granular Casts 0 - 2 /hpf (0-2) 05/01/18 09:46 Urine Other Uyeast 05/01/18 09:46 Stool Occult Blood Negative (NEGATIVE) 05/01/18 16:32 - Hospital Course Hospital Course: 87 year old female with past medical history of 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 Patient was then found to have C. diff colitis and placed on Vancomycin. CT of the abdomen/pelvis showed pancolitis with enlarging left retropertineal mass. Bladder and renal ultrasound showed left hydronephrosis with subcapsular cysts. Patient will be transferred to TCU for further monitoring due to deconditioning. Patient will continue on current medical regimen, including oral Vancomycin for C. diff colitis. Discharge Exam - Head Exam Head Exam: ATRAUMATIC, NORMAL INSPECTION, NORMOCEPHALIC - ENT Exam ENT Exam: Mucous Membranes Moist, Normal Exam - Respiratory Exam Respiratory Exam: NORMAL BREATHING PATTERN, UNREMARKABLE. absent: Rales, Rhonchi, Wheezes - Cardiovascular Exam Cardiovascular Exam: RRR, +S1, +S2 - GI/Abdominal Exam GI & Abdominal Exam: Normal Bowel Sounds, Soft. absent: Tenderness - Extremities Exam Extremities exam: normal inspection - Neurological Exam Neurological exam: Alert, CN II-XII Intact, Oriented x3 - Psychiatric Exam Psychiatric exam: Normal Affect, Normal Mood - Skin Skin Exam: Intact, Normal Color, Warm Discharge Plan - Follow Up Plan Condition: FAIR Disposition: TRANSF TO SNF Instructions: Clostridium difficile (DC), Normocytic Normochromic Anemia (DC) , Sepsis (ED), Leukocytosis (DC) Additional Instructions: You are being discharged from [facility] and transferred to [facility] Transitional Care Unit. Your doctor will continue to coordinate your care on that unit. <Oleg Floyd - Last Filed: 05/06/18 20:24> Provider - Provider Date of Admission: 05/01/18 13:11 Attending physician: Oleg Floyd MD Hospital Course - Lab Results Lab Results: Micro Results 05/01/18 21:43 Urine,Clean Catch Urine Culture - Final <10,000 CFU/ML. MULTIPLE SPECIES. PROBABLE CONTAMINATION. Most Recent Lab Values WBC 12.0 10^3/ul (4.5-11.0) H D 05/06/18 07:40 RBC 2.90 10^6/uL (3.5-6.1) L 05/06/18 07:40 Hgb 9.3 g/dL (12.0-16.0) L 05/06/18 07:40 Hct 28.3 % (36.0-48.0) L 05/06/18 07:40 MCV 97.6 fl (80.0-105.0) 05/06/18 07:40 MCH 32.1 pg (25.0-35.0) 05/06/18 07:40 MCHC 32.9 g/dl (31.0-37.0) 05/06/18 07:40 RDW 17.6 % (11.5-14.5) H 05/06/18 07:40 Plt Count 385 10^3/uL (120.0-450.0) 05/06/18 07:40 MPV 9.1 fl (7.0-11.0) 05/06/18 07:40 Gran % 67.5 % (50.0-68.0) 05/06/18 07:40 Lymph % (Auto) 20.1 % (22.0-35.0) L 05/06/18 07:40 [place] % (Auto) 10.9 % (1.0-6.0) H 05/06/18 07:40 Eos % (Auto) 1.3 % (1.5-5.0) L 05/06/18 07:40 Baso % (Auto) 0.2 % (0.0-3.0) 05/06/18 07:40 Gran # 8.07 (1.4-6.5) H 05/06/18 07:40 Lymph # (Auto) 2.4 (1.2-3.4) 05/06/18 07:40 [place] # (Auto) 1.3 (0.1-0.6) H 05/06/18 07:40 Eos # (Auto) 0.2 (0.0-0.7) 05/06/18 07:40 Baso # (Auto) 0.02 K/mm3 (0.0-2.0) 05/06/18 07:40 PT 13.6 SECONDS (9.4-12.5) H 05/01/18 10:05 INR 1.18 05/01/18 10:05 APTT 33.4 Seconds (25.1-36.5) 05/01/18 10:05 pO2 31 mm/Hg (30-55) 05/01/18 10:30 VBG pH 7.36 (7.32-7.43) 05/01/18 10:30 VBG pCO2 47.0 (40-60) 05/01/18 10:30 VBG HCO3 26.6 mmol/l (21-28) 05/01/18 10:30 VBG Total CO2 28.0 mmol.L (22-28) 05/01/18 10:30 VBG O2 Sat (Calc) 63.6 % (40-65) 05/01/18 10:30 VBG Base Excess 0.6 mmol/L (0.0-2.0) 05/01/18 10:30 VBG Potassium 5.0 mmol/L (3.6-5.2) 05/01/18 10:30 Sodium 133.0 mmol/L (132-148) 05/01/18 10:30 Chloride 100.0 mmol/L (98-107) 05/01/18 10:30 Glucose 104 mg/dl (65-105) 05/01/18 10:30 Lactate 1.7 mmol/L (0.7-2.1) 05/01/18 10:30 FiO2 21.0 % 05/01/18 10:30 Sodium 136 mmol/L (132-148) 05/06/18 07:40 Potassium 3.5 mmol/L (3.6-5.0) L 05/06/18 07:40 Chloride 103 mmol/L (98-107) 05/06/18 07:40 Carbon Dioxide 26 mmol/L (21-33) 05/06/18 07:40 Anion Gap 10 (10-20) 05/06/18 07:40 BUN 5 mg/dL (7-21) L 05/06/18 07:40 Creatinine 0.6 mg/dl (0.7-1.2) L 05/06/18 07:40 Est GFR ( Amer) > 60 05/06/18 07:40 Est GFR (Non-Af Amer) > 60 05/06/18 07:40 Random Glucose 89 mg/dL (70-110) 05/06/18 07:40 Calcium 7.6 mg/dL (8.4-10.5) L 05/06/18 07:40 Phosphorus 3.0 mg/dL (2.5-4.5) 05/06/18 07:40 Magnesium 1.5 mg/dL (1.7-2.2) L 05/06/18 07:40 Total Bilirubin 0.2 mg/dL (0.2-1.3) 05/06/18 07:40 AST 22 U/L (14-36) 05/06/18 07:40 ALT 20 U/L (7-56) 05/06/18 07:40 Alkaline Phosphatase 75 U/L (38-126) 05/06/18 07:40 Total Protein 4.9 g/dL (5.8-8.3) L 05/06/18 07:40 Albumin 2.3 g/dL (3.0-4.8) L 05/06/18 07:40 Globulin 2.6 gm/dL 05/06/18 07:40 Albumin/Globulin Ratio 0.9 (1.1-1.8) L 05/06/18 07:40 Lipase 25 U/L (23-300) 05/01/18 12:06 Vitamin B2 10.3 nmol/L (6.2-39.0) 05/02/18 08:40 Vitamin B12 986 pg/mL (239-931) H 05/01/18 12:40 Folate 10.8 ng/mL 05/01/18 12:40 Procalcitonin 20.28 NG/ML (0.19-0.49) H 05/01/18 10:05 Venous Blood Potassium 5.0 mmol/L (3.6-5.2) 05/01/18 10:30 Urine Color Yellow (YELLOW) 05/01/18 09:46 Urine Appearance Clear (CLEAR) 05/01/18 09:46 Urine pH 6.0 (4.7-8.0) 05/01/18 09:46 Ur Specific [place] 1.025 (1.005-1.035) 05/01/18 09:46 Urine Protein 100 mg/dL (<30 mg/dL) H 05/01/18 09:46 Urine Glucose (UA) Negative mg/dL (NEGATIVE) 05/01/18 09:46 Urine Ketones 15 mg/dL (NEGATIVE) H 05/01/18 09:46 Urine Blood Large (NEGATIVE) H 05/01/18 09:46 Urine Nitrate Positive (NEGATIVE) H 05/01/18 09:46 Urine Bilirubin Negative (NEGATIVE) 05/01/18 09:46 Urine Urobilinogen 0.2 E.U./dL (<1 E.U./dL) 05/01/18 09:46 Ur Leukocyte Esterase Trace Gwendolyn/uL (NEGATIVE) H 05/01/18 09:46 Urine RBC 25 - 30 /hpf (0-2) 05/01/18 09:46 Urine WBC 5 - 10 /hpf (0-6) 05/01/18 09:46 Ur Epithelial Cells 4 - 5 /hpf (0-5) 05/01/18 09:46 Amorphous Sediment Few 05/01/18 09:46 Urine Bacteria Many (NEG) 05/01/18 09:46 Fine Granular Casts 0 - 2 /hpf (0-2) 05/01/18 09:46 Urine Other Uyeast 05/01/18 09:46 Stool Occult Blood Negative (NEGATIVE) 05/01/18 16:32
== END 2018-05-06 15:38 | DRG 871 ==
LOC: ED 09:16 → ERH 13:11 → 2RSO 15:21 → 5RSO 05-04 15:27
PROVIDERS: ADMIT Internal Medicine Nephrology; ATTEND Internal Medicine Nephrology
DX: A41.9 Sepsis, unspecified organism (principal); G93.41 Metabolic encephalopathy; A04.72 Enterocolitis due to Clostridium difficile, not specified as recurrent; N13.30 Unspecified hydronephrosis; I47.1 Supraventricular tachycardia; C80.1 Malignant (primary) neoplasm, unspecified; R65.20 Severe sepsis without septic shock; I12.9 Hypertensive chronic kidney disease with stage 1 through stage 4 chronic kidney disease, or unspecified chronic kidney disease; N18.9 Chronic kidney disease, unspecified; F31.9 Bipolar disorder, unspecified; E78.5 Hyperlipidemia, unspecified; H91.91 Unspecified hearing loss, right ear; D50.9 Iron deficiency anemia, unspecified; D64.81 Anemia due to antineoplastic chemotherapy; D63.8 Anemia in other chronic diseases classified elsewhere; K13.0 Diseases of lips; E87.8 Other disorders of electrolyte and fluid balance, not elsewhere classified; E78.00 Pure hypercholesterolemia, unspecified; F41.9 Anxiety disorder, unspecified; H26.9 Unspecified cataract; Z85.528 Personal history of other malignant neoplasm of kidney; Z87.891 Personal history of nicotine dependence; Z87.01 Personal history of pneumonia (recurrent); Z87.440 Personal history of urinary (tract) infections; Z80.0 Family history of malignant neoplasm of digestive organs

== ENCOUNTER 2018-05-06 15:27 | Inpatient (IN) | payer OTHER ==
[2018-05-06] MEDS: Magnesium Oxide 400 mg Tab UD PO SCH (17:37)
[2018-05-06] MEDS: Potassium & Sodium Phosphate PO SCH (17:41)
[2018-05-06] MEDS: Vancomycin 25 MG/ML PO SCH ×2 (17:54→22:03)
[2018-05-06] MEDS ORDERED: Pneumococcal 23-Valent Vaccine IM ONE (18:40)
[2018-05-06] MEDS: oxyCODONE 5 mg Immediate Release Tab PO PRN (18:50)
[2018-05-07] MEDS: oxyCODONE 5 mg Immediate Release Tab PO PRN ×3 (06:02→19:50)
[2018-05-07 07:53] LABS: HEMOGLOBIN 8.8 g/dL (12.0-16.0); MEAN CELL VOLUME 99.6 fl (80.0-105.0); MEAN CORPUSCULAR HEMOGLOBIN 32.8 pg (25.0-35.0); MEAN PLATELET VOLUME 8.8 fl (7.0-11.0); RBC 2.68 10^6/uL (3.5-6.1); RED CELL DISTRIBUTION WIDTH 18.1 % (11.5-14.5); WHITE BLOOD COUNT 9.9 10^3/ul (4.5-11.0)
[2018-05-07 08:07] LABS: ALBUMIN 2.5 g/dL (3.0-4.8); ALT/SGPT 16 U/L (7-56); AST/SGOT 24 U/L (14-36); BLOOD UREA NITROGEN 6 mg/dL (7-21); CALCIUM 8.4 mg/dL (8.4-10.5); GFR NON-AFRICAN AMERICAN > 60
--- NOTE | 2018-05-07 08:27 | CON ---
Copied To: Sebastian Álvarez MD Attending MD: Sebastian Álvarez MD DATE: 05/06/2018 LOCATION: Patient is seen in room 319. CHIEF COMPLAINT: Weakness times several days. HISTORY OF PRESENT ILLNESS: This is an 87-year-old female with past medical history significant for stage IV squamous cell cancer in the left retroperitoneum and has had chemotherapy, complicated with a left-sided hydronephrosis, history of pseudomembranous colitis and admitted with severe sepsis and now transferred to Transitional Care. REVIEW OF SYSTEMS: Reveals the patient's diarrhea is much improved. There is no abdominal pain, constipation. No headaches or blurred vision. PAST MEDICAL HISTORY: Significant for pseudomembranous colitis, stage IV squamous cell cancer of unknown origin, left retroperitoneum and history of left-sided hydronephrosis. The patient is also with diverticulitis in the past, high cholesterol, arthritis, spinal stenosis, anxiety. PAST SURGICAL HISTORY: Significant for appendectomy, left ankle surgery. ALLERGIES: THE PATIENT IS ALLERGIC TO TETRACYCLINE. MEDICATIONS: Reviewed. PHYSICAL EXAMINATION: GENERAL: The patient is in bed in no acute distress. VITAL SIGNS: Temperature of 98, the patient did have a temperature of 101.9 in the acute side with a heart rate of 100, blood pressure is 160/90, respiratory rate of 20. HEENT: Examination is unremarkable. NECK: Supple. LUNGS: Have decreased breath sounds. HEART: Normal S1 and S2. ABDOMEN: Soft, nontender. DATA: Laboratory examination reveals a white count was up to 25,000, it is down to 12,000; hemoglobin of 9. Chemistries reveal BUN of 5, creatinine of 0.6. Urinalysis is noted. Microbiology reveals the patient's blood cultures are negative. Urine cultures, multiple contamination. Stool for C. Diff antigen is positive. ASSESSMENT AND PLAN: This is an 87-year-old female seen in Transitional Care, room 319 admitted with severe sepsis secondary to severe pseudomembranous colitis. Diarrhea is improving, on p.o. vancomycin, would complete in 14 days. The patient appears to be improving and we will follow closely with you. Sebastian Álvarez MD [facility] # [id number]
--- NOTE | 2018-05-07 08:41 | CP.PCM.HP ---
<Cal Chang - Last Filed: 05/07/18 08:36> History of Present Illness - History of Present Illness History of Present Illness: History and physical for Dr. Floyd 87 year old female with past medical history of stage IV squamous cell cancer of left retroperitoneum with unknown primary, bipolar disorder, dyslipidemia, OA , and C. diff colitis admitted to TCU for deconditioning. Patient was previously diagnosed with C.diff colitis during hospital stay. Patient today states she is doing well with no complaints of nausea, abdominal pain or diarrhea. Patient is participating in physical therapy. Denies chest pain, shortness of breath, weakness, dysuria, weakness, numbness, tingling. PMH: As above Surgical Hx: Right chest port a cath, appendectomy, sigmoidectomy Family Hx: Colon cancer Social Hx: Former smoker, denies alcohol or illicit drug use Allergies: Tetracycline Meds: Reviewed, as per MAR Present on Admission - Present on Admission Any Indicators Present on Admission: No Review of Systems - Review of Systems Review of Systems: 12 point ROS as per HPI, otherwise negative 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) - RENAL Hx Chronic Kidney Disease: Yes (left kidney ca) Hx Renal (Kidney) Cancer: Yes (dx 11/2017) Other/Comment: 11/26/17 cystoscope, left retrograde pyelogram,unsucessful attempt to insert stent, bladder biopsies: dx left hydronephrosis, squamous cell ca - ENDOCRINE/METABOLIC Hx Endocrine Disorders: No - HEMATOLOGICAL/ONCOLOGICAL Hx Blood Disorders: Yes Hx Cancer: Yes (small tumor found in left kidney) Hx Chemotherapy: Yes (every other week started 10wks ago) Other/Comment: recently dx 11/2017 - INTEGUMENTARY Hx Dermatological Problems: Yes Other/Comment: multiple moles to back, spider veins ble, no toenails to both great toes, hammertoes 2 3 4 5 both feet, dry skin rle. 8-22-18 LEFT HIP WITH A 1X1 CM OPEN WOUND,SCABBED,WITH PUS IN THE WOUND AREA. - MUSCULOSKELETAL/RHEUMATOLOGICAL Hx Falls: Yes (past) - GASTROINTESTINAL Hx Gastrointestinal Disorders: Yes (+ c dif/iritable bowel/diverticulitis) - GENITOURINARY/GYNECOLOGICAL Hx Genitourinary Disorders: No Hx Reproductive Disorders: Yes - PSYCHIATRIC Hx Psychophysiologic Disorder: Yes Hx Anxiety: Yes Hx Bipolar Disorder: Yes Hx Depression: Yes Hx Emotional Abuse: No Hx Panic Symptoms: Yes Hx Physical Abuse: No Hx Substance Use: No - SURGICAL HISTORY Hx Appendectomy: Yes (ovarian cyst and ap together) Other/Comment: b/l exc benign cluster of breast cysts 1972, lymph node bx, right chest wall vascular access, sigmoidectomy over 10 yrs ago, sx b/l carpal tunnel - ANESTHESIA Hx Anesthesia: Yes Hx Anesthesia Reactions: No Hx Malignant Hyperthermia: No Meds Allergies/Adverse Reactions: Allergies Allergy/AdvReac Type Severity Reaction Status Date / Time tetracycline Allergy Severe ANAPHYLAXIS Verified 05/01/18 16:50 Physical Exam - Constitutional Appears: Non-toxic, No Acute Distress - Head Exam Head Exam: ATRAUMATIC, NORMAL INSPECTION, NORMOCEPHALIC - Eye Exam Eye Exam: EOMI, Normal appearance - ENT Exam ENT Exam: Mucous Membranes Moist, Normal Exam - Respiratory Exam Respiratory Exam: Clear to Auscultation Bilateral, NORMAL BREATHING PATTERN - Cardiovascular Exam Cardiovascular Exam: RRR, +S1, +S2 - GI/Abdominal Exam GI & Abdominal Exam: Normal Bowel Sounds, Soft. absent: Tenderness - Extremities Exam Extremities exam: Positive for: normal inspection - Neurological Exam Neurological exam: Alert, CN II-XII Intact, Oriented x3 - Psychiatric Exam Psychiatric exam: Normal Affect, Normal Mood - Skin Skin Exam: Intact, Normal Color, Warm Results - Vital Signs Recent Vital Signs: Last Vital Signs Temp 98.6 F 05/06/18 18:18 Pulse 109 H 05/06/18 18:18 Resp 20 05/06/18 18:18 BP 168/92 H 05/06/18 18:18 Pulse Ox - Labs Result Diagrams: 05/07/18 07:30 05/07/18 07:30 Labs: Laboratory Results - last 24 hr 05/07/18 05/07/18 07:30 07:30 WBC 9.9 RBC 2.68 L Hgb 8.8 L Hct 26.7 L MCV 99.6 MCH 32.8 MCHC 33.0 RDW 18.1 H Plt Count 367 MPV 8.8 Sodium 132 Potassium 4.3 Chloride 96 L Carbon Dioxide 30 Anion Gap 10 BUN 6 L Creatinine 0.7 Est GFR ( Amer) > 60 Est GFR (Non-Af Amer) > 60 Random Glucose 109 Calcium 8.4 Total Bilirubin 0.2 AST 24 ALT 16 Alkaline Phosphatase 76 Total Protein 5.2 L Albumin 2.5 L Globulin 2.6 Albumin/Globulin Ratio 1.0 L Assessment & Plan - Assessment and Plan (Free Text) Plan: 1. C. diff colitis 2. Deconditioning 3. 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 Bipolar disorder 5. Osteoarthritis Patient will be admitted to TCU for deconditioning and participate in physical therapy. Patient will continue to oral Vancomycin for C. diff colitis. Patient will be followed by ID. She will also continue pain control regimen. We will continue current medical regimen and monitor closely. Charlene, PGY-3 <Oleg Floyd S - Last Filed: 05/07/18 19:38> Results - Vital Signs Recent Vital Signs: Last Vital Signs Temp 97.6 F 05/07/18 16:00 Pulse 114 H 05/07/18 16:00 Resp 18 05/07/18 16:00 BP 151/92 H 05/07/18 16:00 Pulse Ox 100 05/07/18 16:00 - Labs Result Diagrams: 05/07/18 07:30 05/07/18 07:30 Labs: Laboratory Results - last 24 hr 05/07/18 05/07/18 07:30 07:30 WBC 9.9 RBC 2.68 L Hgb 8.8 L Hct 26.7 L MCV 99.6 MCH 32.8 MCHC 33.0 RDW 18.1 H Plt Count 367 MPV 8.8 Sodium 132 Potassium 4.3 Chloride 96 L Carbon Dioxide 30 Anion Gap 10 BUN 6 L Creatinine 0.7 Est GFR ( Amer) > 60 Est GFR (Non-Af Amer) > 60 Random Glucose 109 Calcium 8.4 Total Bilirubin 0.2 AST 24 ALT 16 Alkaline Phosphatase 76 Total Protein 5.2 L Albumin 2.5 L Globulin 2.6 Albumin/Globulin Ratio 1.0 L Assessment & Plan - Assessment and Plan (Free Text) Plan: Pt seen and examined. I have reviewed the note of the medical driver and agree with it. I have discussed the assessment and plan with the resident. I have reviewed the patient's labs and medications. Pt with C diff. She is on Vancomycin. She will continue on TCU for gait dysfunction. No diarrhea.
[2018-05-07] MEDS: Magnesium Oxide 400 mg Tab UD PO SCH ×2 (09:26→17:32)
[2018-05-07] MEDS: Potassium & Sodium Phosphate PO SCH ×2 (09:26→17:32)
[2018-05-07] MEDS: Vancomycin 25 MG/ML PO SCH ×3 (09:28→21:01)
--- NOTE | 2018-05-07 14:56 | PN ---
Copied To: Sebastian Álvarez MD Attending MD: Sebastian Álvarez MD DATE: 05/07/2018 SUBJECTIVE: The patient is in bed, in no acute distress, nontoxic. PHYSICAL EXAMINATION: VITAL SIGNS: On exam, temperature is 98, blood pressure is 120/70, respiratory rate 16. HEENT: Examination of HEENT is unremarkable. NECK: Supple. LUNGS: Have decreased breath sounds. HEART: Normal S1, S2. ABDOMEN: Soft, nontender. LABORATORY DATA: Laboratory examination reveals a white count of 9.9, hemoglobin of 8, platelets of 362. Chemistries reveals a BUN of 6, creatinine of 0.7. Microbiology is noted and reviewed. ASSESSMENT AND PLAN: An 87-year-old In Transitional Care and admitted with severe sepsis and severe pseudomembranous colitis, on vancomycin p.o.. tolerating the medication, would complete 14 days of p.o. vancomycin. The patient is improving. She reports no diarrhea last night. Sebastian Álvarez MD
[2018-05-07 16:32] VITALS: RESP 18
--- NOTE | 2018-05-07 17:33 | CP.PCM.CON ---
History of Present Illness - History of Present Illness History of Present Illness: Covering Dr. 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 She currently reports to feeling better. Her appetite is improved. Past medical history: squamous cell carcinoma Past surgical history: Appendectomy, portacath Family history: Mother had colon cancer Social history: Former tobacco use, denies alcohol, and illicit drug use. Allergies: Tetracycline Review of systems: All remaining review of systems including HEENT, cardiovascular, respiratory, gastrointestinal, genitourinary, musculoskeletal, dermatologic, neurologic, and psychiatric are negative unless mentioned in the HPI. 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) - RENAL Hx Chronic Kidney Disease: Yes (left kidney ca) Hx Renal (Kidney) Cancer: Yes (dx 11/2017) Other/Comment: 11/26/17 cystoscope, left retrograde pyelogram,unsucessful attempt to insert stent, bladder biopsies: dx left hydronephrosis, squamous cell ca - ENDOCRINE/METABOLIC Hx Endocrine Disorders: No - HEMATOLOGICAL/ONCOLOGICAL Hx Blood Disorders: Yes Hx Cancer: Yes (small tumor found in left kidney) Hx Chemotherapy: Yes (every other week started 10wks ago) Other/Comment: recently dx 11/2017 - INTEGUMENTARY Hx Dermatological Problems: Yes Other/Comment: multiple moles to back, spider veins ble, no toenails to both great toes, hammertoes 2 3 4 5 both feet, dry skin rle. 8-22-18 LEFT HIP WITH A 1X1 CM OPEN WOUND,SCABBED,WITH PUS IN THE WOUND AREA. - MUSCULOSKELETAL/RHEUMATOLOGICAL Hx Arthritis: Yes - GASTROINTESTINAL Hx Gastrointestinal Disorders: Yes (+ c dif/iritable bowel/diverticulitis) - GENITOURINARY/GYNECOLOGICAL Hx Genitourinary Disorders: No Hx Reproductive Disorders: Yes - PSYCHIATRIC Hx Psychophysiologic Disorder: Yes Hx Anxiety: Yes Hx Bipolar Disorder: Yes Hx Depression: Yes Hx Emotional Abuse: No Hx Panic Symptoms: Yes Hx Physical Abuse: No Hx Substance Use: No - SURGICAL HISTORY Hx Appendectomy: Yes (ovarian cyst and ap together) Other/Comment: b/l exc benign cluster of breast cysts 1972, lymph node bx, right chest wall vascular access, sigmoidectomy over 10 yrs ago, sx b/l carpal tunnel - ANESTHESIA Hx Anesthesia: Yes Hx Anesthesia Reactions: No Hx Malignant Hyperthermia: No Meds Allergies/Adverse Reactions: Allergies Allergy/AdvReac Type Severity Reaction Status Date / Time tetracycline Allergy Severe ANAPHYLAXIS Verified 05/01/18 16:50 - Medications Medications: Current Medications Acetaminophen (Tylenol 325mg Tab) 650 mg PO Q4H PRN PRN Reason: Pain, Mild (1-3) Last Admin: 05/07/18 08:39 Dose: 650 mg Alprazolam (Xanax) 0.25 mg PO BID EZEQUIEL PRN Reason: Protocol Stop: 05/13/18 18:01 Last Admin: 05/07/18 11:38 Dose: 0.25 mg Aripiprazole (Abilify) 5 mg PO HS EZEQUIEL PRN Reason: Protocol Last Admin: 05/06/18 21:01 Dose: 5 mg Fentanyl (Duragesic) 1 patch TD Q72H EZEQUIEL Last Admin: 05/06/18 21:01 Dose: 1 patch Heparin Sodium (Porcine) (Heparin) 5,000 units SC Q8 EZEQUIEL PRN Reason: Protocol Last Admin: 05/07/18 13:38 Dose: 5,000 units Magnesium Oxide (Mag-Ox) 400 mg PO BID EZEQUIEL PRN Reason: Protocol Last Admin: 05/07/18 09:26 Dose: 400 mg Mirtazapine (Remeron) 30 mg PO HS EZEQUIEL PRN Reason: Protocol Last Admin: 05/06/18 21:02 Dose: 30 mg Oxycodone HCl (Oxycodone Immediate Release Tab) 5 mg PO Q4H PRN; Protocol PRN Reason: Pain, moderate (4-7) Last Admin: 05/07/18 13:39 Dose: 5 mg Paroxetine HCl (Paxil) 30 mg PO HS EZEQUIEL PRN Reason: Protocol Last Admin: 05/06/18 21:02 Dose: 30 mg Potassium Phos/Sodium Phos (Neutra-Phos) 1 pkt PO BID EZEQUIEL PRN Reason: Protocol Last Admin: 05/07/18 09:26 Dose: 1 pkt Vancomycin HCl (Vancocin 25 Mg/Ml (Oral Use)) 500 mg PO QID EZEQUIEL PRN Reason: Protocol Last Admin: 05/07/18 13:41 Dose: 500 mg Physical Exam - Head Exam Head Exam: ATRAUMATIC - Eye Exam Eye Exam: Normal appearance - ENT Exam ENT Exam: Mucous Membranes Dry - Respiratory Exam Respiratory Exam: NORMAL BREATHING PATTERN - Cardiovascular Exam Cardiovascular Exam: +S1, +S2 - GI/Abdominal Exam GI & Abdominal Exam: Normal Bowel Sounds - Psychiatric Exam Psychiatric exam: Normal Affect, Normal Mood - Skin Skin Exam: Warm Results - Vital Signs Recent Vital Signs: Last Vital Signs Temp 97.6 F 05/07/18 16:00 Pulse 114 H 05/07/18 16:00 Resp 18 05/07/18 16:00 BP 151/92 H 05/07/18 16:00 Pulse Ox 100 05/07/18 16:00 - Labs Result Diagrams: 05/07/18 07:30 05/07/18 07:30 Labs: Laboratory Results - last 24 hr 05/07/18 05/07/18 07:30 07:30 WBC 9.9 RBC 2.68 L Hgb 8.8 L Hct 26.7 L MCV 99.6 MCH 32.8 MCHC 33.0 RDW 18.1 H Plt Count 367 MPV 8.8 Sodium 132 Potassium 4.3 Chloride 96 L Carbon Dioxide 30 Anion Gap 10 BUN 6 L Creatinine 0.7 Est GFR ( Amer) > 60 Est GFR (Non-Af Amer) > 60 Random Glucose 109 Calcium 8.4 Total Bilirubin 0.2 AST 24 ALT 16 Alkaline Phosphatase 76 Total Protein 5.2 L Albumin 2.5 L Globulin 2.6 Albumin/Globulin Ratio 1.0 L Assessment & Plan (1) Anemia Assessment and Plan: anemia of chronic disease Status: Chronic (2) Squamous cell carcinoma Assessment and Plan: outpatient treatment with Dr. Hernandez Thank you for this interesting consult. Status: Chronic
[2018-05-08] MEDS: oxyCODONE 5 mg Immediate Release Tab PO PRN ×4 (06:06→22:04)
[2018-05-08] MEDS: Magnesium Oxide 400 mg Tab UD PO SCH ×2 (09:07→17:03)
[2018-05-08] MEDS: Potassium & Sodium Phosphate PO SCH ×2 (09:08→17:04)
--- NOTE | 2018-05-08 11:29 | CP.PCM.PN ---
<Cal Chang - Last Filed: 05/08/18 11:26> Subjective - Date & Time of Evaluation Date of Evaluation: 05/08/18 Time of Evaluation: 11:26 - Subjective Subjective: Patient seen and examined at bedside. Patient complaining of mild abdominal pain. No overnight events. Denies chest pain, shortness of breath, nausea, vomiting, diarrhea, fever, chills. Objective - Vital Signs/Intake and Output Vital Signs (last 24 hours): Temp Pulse Resp BP Pulse Ox 97.6 F 114 H 18 151/92 H 100 05/07/18 16:00 05/07/18 16:00 05/07/18 16:00 05/07/18 16:00 05/07/18 16:00 - Medications Medications: Current Medications Acetaminophen (Tylenol 325mg Tab) 650 mg PO Q4H PRN PRN Reason: Pain, Mild (1-3) Last Admin: 05/08/18 09:07 Dose: 650 mg Alprazolam (Xanax) 0.25 mg PO BID EZEQUIEL PRN Reason: Protocol Stop: 05/13/18 18:01 Last Admin: 05/08/18 09:06 Dose: 0.25 mg Aripiprazole (Abilify) 5 mg PO HS EZEQUIEL PRN Reason: Protocol Last Admin: 05/07/18 21:01 Dose: 5 mg Heparin Sodium (Porcine) (Heparin) 5,000 units SC Q8 EZEQUIEL PRN Reason: Protocol Last Admin: 05/08/18 06:07 Dose: 5,000 units Magnesium Oxide (Mag-Ox) 400 mg PO BID EZEQUIEL PRN Reason: Protocol Last Admin: 05/08/18 09:07 Dose: 400 mg Mirtazapine (Remeron) 30 mg PO HS EZEQUIEL PRN Reason: Protocol Last Admin: 05/07/18 21:01 Dose: 30 mg Oxycodone HCl (Oxycodone Immediate Release Tab) 5 mg PO Q4H PRN; Protocol PRN Reason: Pain, moderate (4-7) Last Admin: 05/08/18 10:30 Dose: 5 mg Paroxetine HCl (Paxil) 30 mg PO HS EZEQUIEL PRN Reason: Protocol Last Admin: 05/07/18 21:01 Dose: 30 mg Potassium Phos/Sodium Phos (Neutra-Phos) 1 pkt PO BID EZEQUIEL PRN Reason: Protocol Last Admin: 05/08/18 09:08 Dose: 1 pkt - Labs Labs: 05/07/18 07:30 05/07/18 07:30 - Constitutional Appears: Non-toxic, No Acute Distress - Head Exam Head Exam: ATRAUMATIC, NORMAL INSPECTION, NORMOCEPHALIC - Respiratory Exam Respiratory Exam: Clear to Ausculation Bilateral, NORMAL BREATHING PATTERN - Cardiovascular Exam Cardiovascular Exam: RRR, +S1, +S2 - GI/Abdominal Exam GI & Abdominal Exam: Soft, Tenderness (Mild, diffuse), Normal Bowel Sounds. absent: Distended, Guarding, Rigid - Extremities Exam Extremities Exam: Normal Inspection - Neurological Exam Neurological Exam: Alert, Awake, Oriented x3 - Psychiatric Exam Psychiatric exam: Normal Affect, Normal Mood - Skin Skin Exam: Intact, Normal Color, Warm Assessment and Plan - Assessment and Plan (Free Text) Plan: 1. C. diff colitis 2. Gait dysfunction 3. 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 Bipolar disorder 5. Osteoarthritis Patient will be admitted to TCU for deconditioning and gait dysfunction. We will increase dose of Fentanyl. Patient will continue to participate in physical therapy. Patient will continue to oral Vancomycin for C. diff colitis. Patient will be followed by ID. We will continue current medical regimen and monitor closely. Charlene, PGY-3 <Oleg Floyd S - Last Filed: 05/08/18 20:24> Objective - Vital Signs/Intake and Output Vital Signs (last 24 hours): Temp Pulse Resp BP Pulse Ox 98.0 F 107 H 18 152/76 H 100 05/08/18 16:00 05/08/18 16:00 05/08/18 16:00 05/08/18 16:00 05/08/18 16:00 - Medications Medications: Current Medications Acetaminophen (Tylenol 325mg Tab) 650 mg PO Q4H PRN PRN Reason: Pain, Mild (1-3) Last Admin: 05/08/18 09:07 Dose: 650 mg Alprazolam (Xanax) 0.25 mg PO BID EZEQUIEL PRN Reason: Protocol Stop: 05/13/18 18:01 Last Admin: 05/08/18 17:05 Dose: 0.25 mg Aripiprazole (Abilify) 5 mg PO HS EZEQUIEL PRN Reason: Protocol Last Admin: 05/07/18 21:01 Dose: 5 mg Fentanyl (Duragesic) 1 patch TD Q72H EZEQUIEL Last Admin: 05/08/18 11:30 Dose: Not Given Heparin Sodium (Porcine) (Heparin) 5,000 units SC Q8 EZEQUIEL PRN Reason: Protocol Last Admin: 05/08/18 16:51 Dose: 5,000 units Magnesium Oxide (Mag-Ox) 400 mg PO BID EZEQUIEL PRN Reason: Protocol Last Admin: 05/08/18 17:03 Dose: 400 mg Mirtazapine (Remeron) 30 mg PO HS EZEQUIEL PRN Reason: Protocol Last Admin: 05/07/18 21:01 Dose: 30 mg Oxycodone HCl (Oxycodone Immediate Release Tab) 5 mg PO Q4H PRN; Protocol PRN Reason: Pain, moderate (4-7) Last Admin: 05/08/18 18:58 Dose: 5 mg Paroxetine HCl (Paxil) 30 mg PO HS EZEQUIEL PRN Reason: Protocol Last Admin: 05/07/18 21:01 Dose: 30 mg Potassium Phos/Sodium Phos (Neutra-Phos) 1 pkt PO BID EZEQUIEL PRN Reason: Protocol Last Admin: 05/08/18 17:04 Dose: 1 pkt Vancomycin HCl (Vancocin 25 Mg/Ml (Oral Use)) 500 mg PO QID EZEQUIEL PRN Reason: Protocol Last Admin: 05/08/18 17:04 Dose: 500 mg - Labs Labs: 05/07/18 07:30 05/07/18 07:30 Assessment and Plan - Assessment and Plan (Free Text) Plan: Pt seen and examined. I have reviewed the note of the clinical laboratory medical director and agree with it. I have discussed the assessment and plan with the resident. I have reviewed the patient's labs and medications. Pt with C diff colitis. Pt has improvement of her symptoms. She will continue with Vanco. Will increased the Fentanyl patch but pt refused. She is getting PT.
--- NOTE | 2018-05-08 13:17 | CP.PCM.CON ---
History of Present Illness - History of Present Illness History of Present Illness: Palliative consult requested by Dr Alfreda Floyd Reason:Goals of care and advance care planning 87 year old female with history of who was initially admitted to acute care on with sepsis, left hydronephrosis, jean colitis,anemia and dehydration. On 05/06/18 she was transitioned to [facility] for completion of antibiotic therapy and physical deconditioning. Labs done 05/07/18; Wbc 9.9, Hgb 8.8, Plt 367. 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 PSH: appendectomy,sigmoidectomy, R chest port a cath. Social History: Former smoker, no alcohol or drug misuse.Lives with her daughter , Joslyn Villatoro. Family History:Mother>Colon cancer. Advance Care Planning: The patient does not have an Advanced Directive. Review of Systems:The patent has intermittent lower abdominal discomfort, deconditioning, 12 point review otherwise negative 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) - RENAL Hx Chronic Kidney Disease: Yes (left kidney ca) Hx Renal (Kidney) Cancer: Yes (dx 11/2017) Other/Comment: 11/26/17 cystoscope, left retrograde pyelogram,unsucessful attempt to insert stent, bladder biopsies: dx left hydronephrosis, squamous cell ca - ENDOCRINE/METABOLIC Hx Endocrine Disorders: No - HEMATOLOGICAL/ONCOLOGICAL Hx Blood Disorders: Yes Hx Cancer: Yes (small tumor found in left kidney) Hx Chemotherapy: Yes (every other week started 10wks ago) Other/Comment: recently dx 11/2017 - INTEGUMENTARY Hx Dermatological Problems: Yes Other/Comment: multiple moles to back, spider veins ble, no toenails to both great toes, hammertoes 2 3 4 5 both feet, dry skin rle. 05-01-18 LEFT HIP WITH A 1X1 CM OPEN WOUND,SCABBED,WITH PUS IN THE WOUND AREA. - MUSCULOSKELETAL/RHEUMATOLOGICAL Hx Arthritis: Yes - GASTROINTESTINAL Hx Gastrointestinal Disorders: Yes (+ c dif/iritable bowel/diverticulitis) - GENITOURINARY/GYNECOLOGICAL Hx Genitourinary Disorders: No Hx Reproductive Disorders: Yes - PSYCHIATRIC Hx Psychophysiologic Disorder: Yes Hx Anxiety: Yes Hx Bipolar Disorder: Yes Hx Depression: Yes Hx Emotional Abuse: No Hx Panic Symptoms: Yes Hx Physical Abuse: No Hx Substance Use: No - SURGICAL HISTORY Hx Appendectomy: Yes (ovarian cyst and ap together) Other/Comment: b/l exc benign cluster of breast cysts 1972, lymph node bx, right chest wall vascular access, sigmoidectomy over 10 yrs ago, sx b/l carpal tunnel - ANESTHESIA Hx Anesthesia: Yes Hx Anesthesia Reactions: No Hx Malignant Hyperthermia: No Meds Allergies/Adverse Reactions: Allergies Allergy/AdvReac Type Severity Reaction Status Date / Time tetracycline Allergy Severe ANAPHYLAXIS Verified 05/01/18 16:50 - Medications Medications: Current Medications Acetaminophen (Tylenol 325mg Tab) 650 mg PO Q4H PRN PRN Reason: Pain, Mild (1-3) Last Admin: 05/08/18 09:07 Dose: 650 mg Alprazolam (Xanax) 0.25 mg PO BID EZEQUIEL PRN Reason: Protocol Stop: 05/13/18 18:01 Last Admin: 05/08/18 09:06 Dose: 0.25 mg Aripiprazole (Abilify) 5 mg PO HS EZEQUIEL PRN Reason: Protocol Last Admin: 05/07/18 21:01 Dose: 5 mg Fentanyl (Duragesic) 1 patch TD Q72H EZEQUIEL Heparin Sodium (Porcine) (Heparin) 5,000 units SC Q8 EZEQUIEL PRN Reason: Protocol Last Admin: 05/08/18 06:07 Dose: 5,000 units Magnesium Oxide (Mag-Ox) 400 mg PO BID EZEQUIEL PRN Reason: Protocol Last Admin: 05/08/18 09:07 Dose: 400 mg Mirtazapine (Remeron) 30 mg PO HS EZEQUIEL PRN Reason: Protocol Last Admin: 05/07/18 21:01 Dose: 30 mg Oxycodone HCl (Oxycodone Immediate Release Tab) 5 mg PO Q4H PRN; Protocol PRN Reason: Pain, moderate (4-7) Last Admin: 05/08/18 10:30 Dose: 5 mg Paroxetine HCl (Paxil) 30 mg PO HS EZEQUIEL PRN Reason: Protocol Last Admin: 05/07/18 21:01 Dose: 30 mg Potassium Phos/Sodium Phos (Neutra-Phos) 1 pkt PO BID EZEQUIEL PRN Reason: Protocol Last Admin: 05/08/18 09:08 Dose: 1 pkt Vancomycin HCl (Vancocin 25 Mg/Ml (Oral Use)) 500 mg PO QID EZEQUIEL PRN Reason: Protocol Physical Exam - Constitutional Appears: No Acute Distress, Chronically Ill - Head Exam Head Exam: NORMAL INSPECTION - Eye Exam Eye Exam: Normal appearance, PERRL - ENT Exam ENT Exam: Mucous Membranes Moist, Normal Oropharynx - Neck Exam Neck exam: Positive for: Normal Inspection - Respiratory Exam Respiratory Exam: Clear to Auscultation Bilateral, NORMAL BREATHING PATTERN - Cardiovascular Exam Cardiovascular Exam: REGULAR RHYTHM, +S1, +S2 - GI/Abdominal Exam GI & Abdominal Exam: Normal Bowel Sounds, Soft Additional comments: mild lower left sided tenderness - Extremities Exam Extremities exam: Positive for: normal capillary refill, normal inspection - Back Exam Back exam: NORMAL INSPECTION - Neurological Exam Neurological exam: Alert, Oriented x3 - Skin Skin Exam: Dry, Warm - Additional Findings Additional findings: palliative performance scale rating 50% Results - Vital Signs Recent Vital Signs: Last Vital Signs Temp 97.6 F 05/07/18 16:00 Pulse 114 H 05/07/18 16:00 Resp 18 05/07/18 16:00 BP 151/92 H 05/07/18 16:00 Pulse Ox 100 05/07/18 16:00 - Labs Result Diagrams: 05/07/18 07:30 05/07/18 07:30 Assessment & Plan - Assessment and Plan (Free Text) Assessment: 87 year old female with history of squamous cell carcinoma of retropertoneum, primary unknown, left hydronephrosis, colitis and sepsis who is admitted to [facility] for completion of antibiotic therapy and PT for deconditioning. She is being followed by Dr Hernandez, receiving chemotherapy as an outpatient. The patient is alert and oriented. Complaining of mild LL abdominal discomfort , rates it as level of 6. States she was just given pain medication( oxycodone) . States her appetite is improving, denies constipation, nausea/vomiting.. Goals of care and advance care planning discussed. Patient intends to continue treatment of her cancer. She does not have an advanced directive in place. Benefits and burdens of CPR/intubation discussed, questions answered. The patient understands ramifications of resuscitation. She is not willing to share her wishes with me. The patient states she has discussed all this with her daughter, Joslyn. Offered to complete an advanced directive with her and her daughter, patient declined stating her nephew is an deputy attorney general and he will take care of this for her. Psychosocial support provided Time spent in goals of care and advance care planning discussion, 30 minutes Plan: Goals of care and advance care planning Sepsis/colitis: Vancomycin po, ID following Deconditioning: PT/OT. Anemia: Monitor CBC Squamous Cell carcinoma: Follow up with Dr Hernandez as outpatient
[2018-05-08] MEDS: Vancomycin 25 MG/ML PO SCH ×3 (16:54→21:30)
[2018-05-08] MEDS ORDERED: oxyCODONE 5 mg Immediate Release Tab PO STA (22:06)
--- NOTE | 2018-05-08 22:27 | PN ---
Copied To: Sebastian Álvarez MD Attending MD: Sebastian Álvarez MD DATE: 05/08/2018 SUBJECTIVE: The patient is in bed, in no acute distress. PHYSICAL EXAMINATION: VITAL SIGNS: Temperature is 98, blood pressure is 150/70, respiratory rate of 18. HEENT: Examination of HEENT is unremarkable. NECK: Supple. LUNGS: Have decreased breath sounds. HEART: Normal S1 and S2. ABDOMEN: Soft. LABORATORY DATA: Laboratory examination is noted. ASSESSMENT AND PLAN: An 87-year-old female, admitted with severe sepsis and severe pseudomembranous colitis, on p.o. vancomycin. Would complete 14 days of p.o. vancomycin. Review of orders reveals the vancomycin to be effective. Sebastian Álvarez MD
[2018-05-09] MEDS: Potassium & Sodium Phosphate PO SCH ×2 (09:51→18:20)
[2018-05-09] MEDS: Magnesium Oxide 400 mg Tab UD PO SCH ×2 (09:51→18:20)
[2018-05-09] MEDS: Vancomycin 25 MG/ML PO SCH ×4 (09:51→21:00)
[2018-05-09] MEDS: oxyCODONE 5 mg Immediate Release Tab PO PRN ×2 (09:52→14:07)
--- NOTE | 2018-05-09 09:56 | CP.PCM.PN ---
<Cal Chang - Last Filed: 05/09/18 09:53> Subjective - Date & Time of Evaluation Date of Evaluation: 05/09/18 Time of Evaluation: 09:53 - Subjective Subjective: Patient seen and examined at bedside. Patient doing well with no complaints of abdominal pain this morning. Denies chest pain, shortness of breath, nausea, vomiting, diarrhea, fever, chills. Objective - Vital Signs/Intake and Output Vital Signs (last 24 hours): Temp Pulse Resp BP Pulse Ox 98.2 F 103 H 18 133/67 92 L 05/09/18 06:00 05/09/18 06:00 05/09/18 06:00 05/09/18 06:00 05/09/18 06:00 - Medications Medications: Current Medications Acetaminophen (Tylenol 325mg Tab) 650 mg PO Q4H PRN PRN Reason: Pain, Mild (1-3) Last Admin: 05/08/18 09:07 Dose: 650 mg Alprazolam (Xanax) 0.25 mg PO BID EZEQUIEL PRN Reason: Protocol Stop: 05/13/18 18:01 Last Admin: 05/08/18 17:05 Dose: 0.25 mg Aripiprazole (Abilify) 5 mg PO HS EZEQUIEL PRN Reason: Protocol Last Admin: 05/08/18 20:59 Dose: 5 mg Fentanyl (Duragesic) 1 patch TD Q72H EZEQUIEL Last Admin: 05/08/18 20:02 Dose: 1 patch Heparin Sodium (Porcine) (Heparin) 5,000 units SC Q8 EZEQUIEL PRN Reason: Protocol Last Admin: 05/09/18 06:17 Dose: 5,000 units Magnesium Oxide (Mag-Ox) 400 mg PO BID EZEQUIEL PRN Reason: Protocol Last Admin: 05/08/18 17:03 Dose: 400 mg Mirtazapine (Remeron) 30 mg PO HS EZEQUIEL PRN Reason: Protocol Last Admin: 05/08/18 21:00 Dose: 30 mg Oxycodone HCl (Oxycodone Immediate Release Tab) 5 mg PO Q4H PRN; Protocol PRN Reason: Pain, moderate (4-7) Last Admin: 05/08/18 22:04 Dose: 5 mg Paroxetine HCl (Paxil) 30 mg PO HS EZEQUIEL PRN Reason: Protocol Last Admin: 05/08/18 21:00 Dose: 30 mg Potassium Phos/Sodium Phos (Neutra-Phos) 1 pkt PO BID EZEQUIEL PRN Reason: Protocol Last Admin: 05/08/18 17:04 Dose: 1 pkt Vancomycin HCl (Vancocin 25 Mg/Ml (Oral Use)) 500 mg PO QID EZEQUIEL PRN Reason: Protocol Last Admin: 05/08/18 21:30 Dose: 500 mg - Labs Labs: 05/07/18 07:30 05/07/18 07:30 - Constitutional Appears: Non-toxic, No Acute Distress - Head Exam Head Exam: ATRAUMATIC, NORMAL INSPECTION, NORMOCEPHALIC - Eye Exam Eye Exam: EOMI, Normal appearance - ENT Exam ENT Exam: Mucous Membranes Moist - Respiratory Exam Respiratory Exam: Clear to Ausculation Bilateral, NORMAL BREATHING PATTERN - Cardiovascular Exam Cardiovascular Exam: RRR, +S1, +S2 - GI/Abdominal Exam GI & Abdominal Exam: Soft, Normal Bowel Sounds. absent: Distended, Tenderness - Extremities Exam Extremities Exam: Normal Inspection. absent: Calf Tenderness - Neurological Exam Neurological Exam: Alert, Awake, CN II-XII Intact, Oriented x3 - Psychiatric Exam Psychiatric exam: Normal Affect, Normal Mood - Skin Skin Exam: Intact, Normal Color, Warm Assessment and Plan - Assessment and Plan (Free Text) Plan: 1. C. diff colitis 2. Gait dysfunction 3. 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 Bipolar disorder 5. Osteoarthritis Patient remains in TCU for deconditioning and gait dysfunction. Patient pain well controlled on new pain regimen. Patient will continue to participate in physical therapy and continue Vancomycin for C. diff. colitis. Patient evaluated by palliative care. Patient will be followed by ID. We will continue current medical regimen and monitor closely. Charlene, PGY-3 <Carla Magana - Last Filed: 05/09/18 17:21> Objective - Vital Signs/Intake and Output Vital Signs (last 24 hours): Temp Pulse Resp BP Pulse Ox 98.2 F 116 H 18 133/67 94 L 05/09/18 06:00 05/09/18 15:55 05/09/18 06:00 05/09/18 06:00 05/09/18 15:55 - Medications Medications: Current Medications Acetaminophen (Tylenol 325mg Tab) 650 mg PO Q4H PRN PRN Reason: Pain, Mild (1-3) Last Admin: 05/08/18 09:07 Dose: 650 mg Alprazolam (Xanax) 0.25 mg PO BID EZEQUIEL PRN Reason: Protocol Stop: 05/13/18 18:01 Last Admin: 05/09/18 09:51 Dose: 0.25 mg Aripiprazole (Abilify) 5 mg PO HS EZEQUIEL PRN Reason: Protocol Last Admin: 05/08/18 20:59 Dose: 5 mg Fentanyl (Duragesic) 1 patch TD Q72H EZEQUIEL Last Admin: 05/08/18 20:02 Dose: 1 patch Heparin Sodium (Porcine) (Heparin) 5,000 units SC Q8 EZEQUIEL PRN Reason: Protocol Last Admin: 05/09/18 14:08 Dose: 5,000 units Magnesium Oxide (Mag-Ox) 400 mg PO BID EZEQUIEL PRN Reason: Protocol Last Admin: 05/09/18 09:51 Dose: 400 mg Mirtazapine (Remeron) 30 mg PO HS EZEQUIEL PRN Reason: Protocol Last Admin: 05/08/18 21:00 Dose: 30 mg Oxycodone HCl (Oxycodone Immediate Release Tab) 5 mg PO Q4H PRN; Protocol PRN Reason: Pain, moderate (4-7) Last Admin: 05/09/18 14:07 Dose: 5 mg Paroxetine HCl (Paxil) 30 mg PO HS EZEQUIEL PRN Reason: Protocol Last Admin: 05/08/18 21:00 Dose: 30 mg Potassium Phos/Sodium Phos (Neutra-Phos) 1 pkt PO BID EZEQUIEL PRN Reason: Protocol Last Admin: 05/09/18 09:51 Dose: 1 pkt Vancomycin HCl (Vancocin 25 Mg/Ml (Oral Use)) 500 mg PO QID EZEQUIEL PRN Reason: Protocol Last Admin: 05/09/18 14:07 Dose: 500 mg - Labs Labs: 05/07/18 07:30 05/07/18 07:30 Assessment and Plan - Assessment and Plan (Free Text) Plan: RESIDENT S, NOTES REVIEWDE AND AGREED
--- NOTE | 2018-05-09 11:50 | PN ---
Copied To: Sebastian Álvarez MD Attending MD: Sebastian Álvarez MD DATE: 05/09/2018 SUBJECTIVE: The patient is in bed, in no acute distress, nontoxic, was seen earlier today. PHYSICAL EXAMINATION: VITAL SIGNS: On exam, temperature is 98, blood pressure is 130/60, respiratory rate of 18, heart rate of 103. HEENT: Examination of HEENT is unremarkable. NECK: Supple. LUNGS: Have decreased breath sounds. HEART: Normal S1, S2. ABDOMEN: Soft, nontender. LABORATORY DATA: Laboratory examination reveals the patient's white count of 9.9, hemoglobin of 8. Chemistries are noted. Review of orders reveals the patient to be on p.o. vancomycin. ASSESSMENT AND PLAN: An 87-year-old female seen in Transitional Care with severe sepsis and severe pseudomembranous colitis, on p.o. vancomycin, would complete 14 days of p.o. vancomycin. Sebastian Álvarez MD
[2018-05-10] MEDS: oxyCODONE 5 mg Immediate Release Tab PO PRN ×3 (08:57→20:01)
[2018-05-10] MEDS: Magnesium Oxide 400 mg Tab UD PO SCH ×2 (09:00→17:05)
--- NOTE | 2018-05-10 09:19 | CP.PCM.PN ---
<Cal Chang - Last Filed: 05/10/18 09:16> Subjective - Date & Time of Evaluation Date of Evaluation: 05/10/18 Time of Evaluation: 09:16 - Subjective Subjective: Patient seen and examined. Patient states she is feeling weak, does not want to participate in PT. Denies chest pain, shortness of breath, nausea, vomiting, diarrhea. Objective - Vital Signs/Intake and Output Vital Signs (last 24 hours): Temp Pulse Resp BP Pulse Ox 98.2 F 116 H 18 133/67 94 L 05/09/18 06:00 05/09/18 15:55 05/09/18 06:00 05/09/18 06:00 05/09/18 15:55 - Medications Medications: Current Medications Acetaminophen (Tylenol 325mg Tab) 650 mg PO Q4H PRN PRN Reason: Pain, Mild (1-3) Last Admin: 05/08/18 09:07 Dose: 650 mg Alprazolam (Xanax) 0.25 mg PO BID EZEQUIEL PRN Reason: Protocol Stop: 05/13/18 18:01 Last Admin: 05/10/18 09:00 Dose: 0.25 mg Aripiprazole (Abilify) 5 mg PO HS EZEQUIEL PRN Reason: Protocol Last Admin: 05/09/18 20:59 Dose: 5 mg Fentanyl (Duragesic) 1 patch TD Q72H EZEQUIEL Last Admin: 05/08/18 20:02 Dose: 1 patch Heparin Sodium (Porcine) (Heparin) 5,000 units SC Q8 EZEQUIEL PRN Reason: Protocol Last Admin: 05/10/18 06:32 Dose: 5,000 units Magnesium Oxide (Mag-Ox) 400 mg PO BID EZEQUIEL PRN Reason: Protocol Last Admin: 05/10/18 09:00 Dose: 400 mg Mirtazapine (Remeron) 30 mg PO HS EZEQUIEL PRN Reason: Protocol Last Admin: 05/09/18 21:00 Dose: 30 mg Oxycodone HCl (Oxycodone Immediate Release Tab) 5 mg PO Q4H PRN; Protocol PRN Reason: Pain, moderate (4-7) Last Admin: 05/10/18 08:57 Dose: 5 mg Paroxetine HCl (Paxil) 30 mg PO HS EZEQUIEL PRN Reason: Protocol Last Admin: 05/09/18 20:59 Dose: 30 mg Potassium Phos/Sodium Phos (Neutra-Phos) 1 pkt PO BID EZEQUIEL PRN Reason: Protocol Last Admin: 05/09/18 18:20 Dose: 1 pkt Vancomycin HCl (Vancocin 25 Mg/Ml (Oral Use)) 500 mg PO QID EZEQUIEL PRN Reason: Protocol Last Admin: 05/09/18 21:00 Dose: 500 mg - Labs Labs: 05/07/18 07:30 05/07/18 07:30 - Constitutional Appears: Non-toxic, No Acute Distress - Head Exam Head Exam: ATRAUMATIC, NORMAL INSPECTION, NORMOCEPHALIC - ENT Exam ENT Exam: Mucous Membranes Moist, Normal Exam - Respiratory Exam Respiratory Exam: Clear to Ausculation Bilateral, NORMAL BREATHING PATTERN - Cardiovascular Exam Cardiovascular Exam: RRR, +S1, +S2 - GI/Abdominal Exam GI & Abdominal Exam: Soft, Normal Bowel Sounds. absent: Tenderness - Extremities Exam Extremities Exam: Normal Inspection. absent: Calf Tenderness, Pedal Edema - Neurological Exam Neurological Exam: Alert, Awake, CN II-XII Intact, Oriented x3 - Psychiatric Exam Psychiatric exam: Normal Affect, Normal Mood - Skin Skin Exam: Intact, Normal Color, Warm Assessment and Plan - Assessment and Plan (Free Text) Plan: 1. C. diff colitis 2. Gait dysfunction 3. 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 Bipolar disorder 5. Osteoarthritis Patient encouraged to continue PT for deconditioning and gait dysfunction. Patient pain controlled with pain regimen. Patient will continue on Vancomycin for C. diff colitis. Patient currently being followed by ID. We will continue current medical regimen and monitor closely. Charlene, PGY-3 <Carla Magana - Last Filed: 05/10/18 22:28> Objective - Vital Signs/Intake and Output Vital Signs (last 24 hours): Temp Pulse Resp BP Pulse Ox 98 F 105 H 18 142/70 97 05/10/18 18:29 05/10/18 18:29 05/10/18 18:29 05/10/18 18:29 05/10/18 18:29 - Medications Medications: Current Medications Acetaminophen (Tylenol 325mg Tab) 650 mg PO Q4H PRN PRN Reason: Pain, Mild (1-3) Last Admin: 05/08/18 09:07 Dose: 650 mg Alprazolam (Xanax) 0.25 mg PO BID EZEQUIEL PRN Reason: Protocol Stop: 05/13/18 18:01 Last Admin: 05/10/18 17:10 Dose: 0.25 mg Aripiprazole (Abilify) 5 mg PO HS EZEQUIEL PRN Reason: Protocol Last Admin: 05/10/18 21:18 Dose: 5 mg Fentanyl (Duragesic) 1 patch TD Q72H EZEQUIEL Last Admin: 05/08/18 20:02 Dose: 1 patch Heparin Sodium (Porcine) (Heparin) 5,000 units SC Q8 EZEQUIEL PRN Reason: Protocol Last Admin: 05/10/18 21:19 Dose: Not Given Magnesium Oxide (Mag-Ox) 400 mg PO BID EZEQUIEL PRN Reason: Protocol Last Admin: 05/10/18 17:05 Dose: 400 mg Mirtazapine (Remeron) 30 mg PO HS EZEQUIEL PRN Reason: Protocol Last Admin: 05/10/18 21:20 Dose: 30 mg Oxycodone HCl (Oxycodone Immediate Release Tab) 5 mg PO Q4H PRN; Protocol PRN Reason: Pain, moderate (4-7) Last Admin: 05/10/18 20:01 Dose: 5 mg Paroxetine HCl (Paxil) 30 mg PO HS EZEQUIEL PRN Reason: Protocol Last Admin: 05/10/18 21:19 Dose: 30 mg Potassium Phos/Sodium Phos (Neutra-Phos) 1 pkt PO BID EZEQUIEL PRN Reason: Protocol Last Admin: 05/10/18 17:05 Dose: 1 pkt Vancomycin HCl (Vancocin 25 Mg/Ml (Oral Use)) 500 mg PO QID EZEQUIEL PRN Reason: Protocol Last Admin: 05/10/18 21:20 Dose: Not Given - Labs Labs: 05/07/18 07:30 05/07/18 07:30 Assessment and Plan - Assessment and Plan (Free Text) Plan: case discussed with resident .pt seen and examined
[2018-05-10] MEDS: Potassium & Sodium Phosphate PO SCH ×2 (10:45→17:05)
[2018-05-10] MEDS: Vancomycin 25 MG/ML PO SCH ×4 (12:35→21:20)
[2018-05-10 18:42] VITALS: BP 142/70; PULSE 105; TEMP 98; O2SAT 97
--- NOTE | 2018-05-10 22:10 | PN ---
Copied To: Sebastian Álvarez MD Attending MD: Sebastian Álvarez MD DATE: 05/10/2018 SUBJECTIVE: The patient is in bed, in no acute distress. PHYSICAL EXAMINATION: VITAL SIGNS: Temperature is 98, blood pressure is 140/80, respiratory rate of 18, heart rate of 103. HEENT: Unremarkable. NECK: Supple. LUNGS: Have decreased breath sounds. HEART: Normal S1, S2. ABDOMEN: Soft, nontender. LABORATORY DATA: Reveals a white count of 9.9, hemoglobin of 8, platelets of 367. Chemistries reveal a BUN of 6, creatinine of 0.7. ASSESSMENT AND PLAN: This is an 87-year-old female in Transitional Care with severe sepsis with severe pseudomembranous colitis, on p.o. vancomycin, would complete 14 days of p.o. vancomycin. Review of orders reveals the p.o. vancomycin to be active. We will follow closely with you. Sebastian Álvarez MD
[2018-05-11] MEDS: oxyCODONE 5 mg Immediate Release Tab PO PRN ×4 (01:32→21:08)
[2018-05-11 04:43] LABS: URINE BILIRUBIN NEGATIVE (NEGATIVE); URINE BLOOD SMALL (NEGATIVE); URINE GLUCOSE (UA) NEGATIVE (NEGATIVE); URINE LEUKOCYTE ESTERASE NEGATIVE Leu/uL (NEGATIVE); URINE PROTEIN TRACE mg/dL (<30 mg/dL); URINE UROBILINOGEN 0.2 E.U./dL (<1 E.U./dL)
[2018-05-11 04:54] LABS: URINE APPEARANCE CLEAR (CLEAR); URINE COLOR STRAW (YELLOW)
[2018-05-11 05:18] LABS: URINE BACTERIA SMALL (NEG); URINE EPITHELIAL CELLS 0 - 2 /hpf (0-5)
[2018-05-11] MEDS: Magnesium Oxide 400 mg Tab UD PO SCH ×2 (10:13→17:44)
[2018-05-11] MEDS: Vancomycin 25 MG/ML PO SCH ×4 (10:13→21:05)
[2018-05-11] MEDS: Potassium & Sodium Phosphate PO SCH ×2 (10:14→17:44)
--- NOTE | 2018-05-11 20:30 | CP.PCM.PN ---
Subjective - Date & Time of Evaluation Date of Evaluation: 05/10/18 Time of Evaluation: 18:00 - Subjective Subjective: Covering Dr. Hernandez Feels tired. Objective - Vital Signs/Intake and Output Vital Signs (last 24 hours): Temp Pulse Resp BP Pulse Ox 98 F 105 H 18 142/70 97 05/10/18 18:29 05/10/18 18:29 05/10/18 18:29 05/10/18 18:29 05/10/18 18:29 - Medications Medications: Current Medications Acetaminophen (Tylenol 325mg Tab) 650 mg PO Q4H PRN PRN Reason: Pain, Mild (1-3) Last Admin: 05/08/18 09:07 Dose: 650 mg Alprazolam (Xanax) 0.25 mg PO BID EZEQUIEL PRN Reason: Protocol Stop: 05/13/18 18:01 Last Admin: 05/11/18 17:44 Dose: 0.25 mg Aripiprazole (Abilify) 5 mg PO HS EZEQUIEL PRN Reason: Protocol Last Admin: 05/10/18 21:18 Dose: 5 mg Fentanyl (Duragesic) 1 patch TD Q72H EZEQUIEL Last Admin: 05/11/18 10:35 Dose: 1 patch Heparin Sodium (Porcine) (Heparin) 5,000 units SC Q8 EZEQUIEL PRN Reason: Protocol Last Admin: 05/11/18 15:17 Dose: Not Given Magnesium Oxide (Mag-Ox) 400 mg PO BID EZEQUIEL PRN Reason: Protocol Last Admin: 05/11/18 17:44 Dose: 400 mg Mirtazapine (Remeron) 30 mg PO HS EZEQUIEL PRN Reason: Protocol Last Admin: 05/10/18 21:20 Dose: 30 mg Oxycodone HCl (Oxycodone Immediate Release Tab) 5 mg PO Q4H PRN; Protocol PRN Reason: Pain, moderate (4-7) Last Admin: 05/11/18 13:58 Dose: 5 mg Paroxetine HCl (Paxil) 30 mg PO HS EZEQUIEL PRN Reason: Protocol Last Admin: 05/10/18 21:19 Dose: 30 mg Potassium Phos/Sodium Phos (Neutra-Phos) 1 pkt PO BID EZEQUIEL PRN Reason: Protocol Last Admin: 05/11/18 17:44 Dose: 1 pkt Vancomycin HCl (Vancocin 25 Mg/Ml (Oral Use)) 250 mg PO QID EZEQUIEL PRN Reason: Protocol Last Admin: 05/11/18 17:39 Dose: Not Given - Labs Labs: 05/07/18 07:30 05/07/18 07:30 - Head Exam Head Exam: ATRAUMATIC - Eye Exam Eye Exam: Normal appearance - ENT Exam ENT Exam: Mucous Membranes Dry - Respiratory Exam Respiratory Exam: NORMAL BREATHING PATTERN - Cardiovascular Exam Cardiovascular Exam: +S1, +S2 - GI/Abdominal Exam GI & Abdominal Exam: Normal Bowel Sounds Assessment and Plan (1) Anemia Assessment & Plan: anemia of chronic disease Status: Chronic (2) Squamous cell carcinoma Assessment & Plan: outpatient f/u and treatment with Dr. Hernandez Status: Chronic
--- NOTE | 2018-05-11 21:51 | PN ---
Copied To: Sebastian Álvarez MD Attending MD: Sebastian Álvarez MD DATE: 05/11/2018 SUBJECTIVE: The patient is in bed in no acute distress, nontoxic. PHYSICAL EXAMINATION: VITAL SIGNS: Temperature 98, blood pressure 142/70, respiratory rate of 18. HEENT: Remarkable. NECK: Supple. LUNGS: Have decreased breath sounds. HEART: Normal S1, S2. ABDOMEN: Soft, nontender. LABORATORY EXAMINATION: Reveals the patient's white count is 9.9, hemoglobin of 8. Chemistry reveals the BUN of 6, creatinine 0.7. ASSESSMENT AND PLAN: An 87-year-old female with severe sepsis, severe pseudomembranous colitis, on p.o. vancomycin, complete with p.o. vancomycin. We will follow with you. . Sebastian Álvarez MD
--- NOTE | 2018-05-11 22:51 | PN ---
Copied To: Carla Magana MD Attending MD: Carla Magana MD DATE: 05/11/2018 SUBJECTIVE: The patient is 87 years old, seen and examined, lying in bed, seems to be comfortable, anxious to go home. PHYSICAL EXAMINATION: VITAL SIGNS: She is afebrile, pulse 105, respirations 18, blood pressure 142/70. LUNGS: Bilateral fair airflow. No rhonchi or crackle. HEART: S1 and S2 audible. ABDOMEN: Soft, nontender. No rebound, no guarding. NEUROLOGIC: She is awake, alert, oriented, and communicative. ASSESSMENT: 1. Status post resolving sepsis. 2. Clostridium difficile colitis. 2. Hypertension. 3. Hyperlipidemia. 4. Mild dementia. 5. Depression. PLAN: We will continue the patient on current medications. She seems to be stable. Renew her fentanyl patch. Continue physical therapy. Cut down her p.o. vancomycin to 250 four times a day and we will reevaluate . Carla Magana MD
[2018-05-12] MEDS: oxyCODONE 5 mg Immediate Release Tab PO PRN ×3 (07:51→19:32)
[2018-05-12] MEDS: Magnesium Oxide 400 mg Tab UD PO SCH ×2 (09:27→17:34)
[2018-05-12] MEDS: Potassium & Sodium Phosphate PO SCH ×2 (09:27→17:35)
[2018-05-12] MEDS: Vancomycin 25 MG/ML PO SCH ×5 (09:28→22:21)
--- NOTE | 2018-05-12 14:23 | PN ---
Copied To: Sebastian Álvarez MD Attending MD: Sebastian Álvarez MD DATE: 05/12/2018 SUBJECTIVE: The patient is in bed, in no acute distress, nontoxic. PHYSICAL EXAMINATION: VITAL SIGNS: Temperature is 98, blood pressure is 140/70, respiratory rate of 18, heart rate of 116. HEENT: Unremarkable. NECK: Supple. LUNGS: Have decreased breath sounds. HEART: Normal S1, S2. ABDOMEN: Soft, nontender. LABORATORY EXAMINATION: Noted. White count of 9.9, hemoglobin of 8, platelets of 364. Chemistries: Reviewed. ASSESSMENT AND PLAN: An 87-year-old female with severe sepsis and severe pseudomembranous colitis, currently on p.o. vancomycin. Complete 14 days of p.o. vancomycin. Sebastian Álvarez MD
--- NOTE | 2018-05-12 20:07 | PN ---
Copied To: Carla Magana MD Attending MD: Carla Magana MD DATE: 05/12/2018 SUBJECTIVE: The patient is 87 years old, seen and examined, seen in gym, anxious to go home. Doing well in therapy. No nausea, vomiting, or diarrhea. No abdominal pain. PHYSICAL EXAMINATION: VITAL SIGNS: She is afebrile, pulse 80, respirations 20, blood pressure 142/70. LUNGS: Bilateral good airflow. No rhonchi or crackle. HEART: S1 and S2 audible. ABDOMEN: Soft, nontender. No rebound, no guarding. NEUROLOGIC: The patient is awake, alert, oriented, and communicative. Ambulatory. No leg edema. ASSESSMENT: 1. Status post sepsis, resolved. 2. Clostridium difficile colitis. 3. Hypertension. 4. History of retroperitoneal malignancy. 5. History of depression. 6. Anxiety disorder at times. 7. Anemia of chronic disease. PLAN: Patient is clinically stable, possible discharge in a.m. Carla Magana MD
[2018-05-13] MEDS: oxyCODONE 5 mg Immediate Release Tab PO PRN ×2 (00:38→05:59)
[2018-05-13] MEDS: Potassium & Sodium Phosphate PO SCH (09:21)
[2018-05-13] MEDS: Magnesium Oxide 400 mg Tab UD PO SCH (09:21)
[2018-05-13] MEDS: Vancomycin 25 MG/ML PO SCH (09:23)
--- NOTE | 2018-05-13 11:51 | PN ---
Copied To: Sebastian Álvarez MD Attending MD: Sebastian Álvarez MD DATE: 05/13/2018 SUBJECTIVE: The patient is in bed, in no acute distress, nontoxic. PHYSICAL EXAMINATION: VITAL SIGNS: On exam, temperature is 98, blood pressure is 140/70, respiratory rate of 16. HEENT: Examination of HEENT is unremarkable. NECK: Supple. LUNGS: Have decreased breath sounds. HEART: Normal S1, S2. ABDOMEN: Soft. LABORATORY DATA: Laboratory examination reveals the white count is 9, hemoglobin of 8, platelets of 367. Chemistries reveals a BUN of 6, creatinine 0.7. Urinalysis is noted. Microbiology reveals the urine cultures are negative. ASSESSMENT AND PLAN: An 87-year-old with severe sepsis and severe pseudomembranous colitis. Would complete 14 days of p.o. vancomycin. The patient's review of orders reveals the vancomycin to be active. Sebastian Álvarez MD
--- NOTE | 2018-05-14 08:45 | DS ---
Copied To: Carla Magana MD Attending MD: Carla Magana MD HISTORY OF PRESENT ILLNESS: The patient is 87 years old, who came in initially with generalized fatigue, weakness, intractable diarrhea and high white count. She was found to have C. diff. She was given IV Flagyl along with p.o. vanco, started to do well, was admitted in TCU on 05/07, did well, participated in therapy. PHYSICAL EXAMINATION: GENERAL: On examination today, she is awake, alert, oriented, communicative, anxious to go home. VITAL SIGNS: She is afebrile, pulse 80, respirations 18, blood pressure 142/70. LUNGS: Bilateral fair airflow. No rhonchi or crackle. HEART: S1, S2 audible. ABDOMEN: Soft, nontender. No rebound. No guarding. NEUROLOGIC: The patient is awake, alert, oriented, communicative, ambulatory. ASSESSMENT: 1. Sepsis, resolved. 2. Clostridium difficile colitis, resolved. 3. Hypertension. 4. Retroperitoneal malignancy. 5. Chronic anemia. 6. Anxiety. 7. Depression. PLAN: The patient is being discharged today. She will follow with PMD. She was given prescription of vancomycin 250 four times a day for 3 more days to complete 14 days of antibiotics. Carla Magana MD
== END 2018-05-13 12:08 | disposition home or self-care (01) | DRG 872 ==
LOC: TRCU 15:27
PROVIDERS: ADMIT Internal Medicine Nephrology; ATTEND Internal Medicine Nephrology
PROC: F08Z4FZ Home Management Treatment using Assistive, Adaptive, Supportive or Protective Equipment (ICD-10-PCS; 2018-05-06)
PROC: F08Z4FZ Home Management Treatment using Assistive, Adaptive, Supportive or Protective Equipment (ICD-10-PCS; principal; 2018-05-07)
DX: A41.9 Sepsis, unspecified organism (principal); A04.72 Enterocolitis due to Clostridium difficile, not specified as recurrent; Z79.2 Long term (current) use of antibiotics; C78.6 Secondary malignant neoplasm of retroperitoneum and peritoneum; C80.1 Malignant (primary) neoplasm, unspecified; F31.9 Bipolar disorder, unspecified; R65.20 Severe sepsis without septic shock; I10 Essential (primary) hypertension; E78.00 Pure hypercholesterolemia, unspecified; F41.9 Anxiety disorder, unspecified; D63.8 Anemia in other chronic diseases classified elsewhere; F03.90 Unspecified dementia, unspecified severity, without behavioral disturbance, psychotic disturbance, mood disturbance, and anxiety; E78.5 Hyperlipidemia, unspecified; H91.91 Unspecified hearing loss, right ear; Z90.49 Acquired absence of other specified parts of digestive tract; Z87.891 Personal history of nicotine dependence; Z80.0 Family history of malignant neoplasm of digestive organs

== ENCOUNTER 2018-05-21 10:39 | Inpatient (IN) | payer MEDICARE, OTHER ==
[2018-05-21 11:07] VITALS: BMI 18.3
[2018-05-21] MEDS ORDERED: Sodium Chloride 0.9% 1,000 ML IV STA ×2 (11:50→13:45)
--- NOTE | 2018-05-21 11:50 | ED PDOC ---
Arrival/HPI - General Chief Complaint: GI Problem Time Seen by Provider: 05/21/18 11:07 Historian: Family - History of Present Illness Narrative History of Present Illness (Text): 87y/o F with h/o bladder cancer(unknown primary source) brought to ER by daughter for evaluation of altered mental status ongoing for the last 24 hrs. Per daughter, patient has been increasingly confused, wandering around the house and has been answering questions/interacting inappropriately. Of note, patient was recently admitted due to persistent diarrhea, was found to have C.Diff infection, was being treated with IV Flagyl and PO vancomycin. According to to the patient's daughter, patient only took 2 doses of vancomycin after discharge due to financial constraints. She also reports decreased PO intake & persistent diffuse abdominal pain. The patient had her last chemotherapy session yesterday(port was accessed). A more complete HPI was unable to be obtained due to her clinical condition PMD: Dr. Clinton Oncologist: Dr. Hernandez Time/Duration: 24 hours Symptom Onset: Gradual Symptom Course: Worsening Severity Level: Moderate Activities at Onset: Rest Context: Home Past Medical History - Provider Review Nursing Documentation Reviewed: Yes - Travel History Have you recently traveled outside [place] w/in the past 3 mons?: No - Infectious Disease Hx of Infectious Diseases: C.diff - Tetanus Immunization Tetanus Immunization: Unknown - Reproductive Menopause: Yes - Cardiac Hx Cardiac Disorders: Yes Other/Comment: RT subclavian port - Pulmonary Hx Respiratory Disorders: Yes (SMOKED CIGARETTES BEFORE QUIT PK EVERY OTHER DAY) Hx Pneumonia: Yes Other/Comment: quit smoking over 25 yrs ago - Neurological Hx Neurological Disorder: Yes Hx Dizziness: Yes - HEENT Hx HEENT Disorder: Yes Hx Cataracts: Yes 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) - Renal Hx Renal Disorder: Yes (left kidney ca) Hx Renal Cancer: Yes (dx 11/2017) Other/Comment: 11/26/17 cystoscope, left retrograde pyelogram,unsucessful attempt to insert stent, bladder biopsies: dx left hydronephrosis, squamous cell ca - Endocrine/Metabolic Hx Endocrine Disorders: No - Hematological/Oncological Hx Blood Disorders: Yes Hx Cancer: Yes (small tumor found in left kidney) Hx Chemotherapy: Yes (every other week started 10wks ago) Other/Comment: recently dx 11/2017 - Integumentary Hx Dermatological Disorder: Yes Other/Comment: multiple moles to back, spider veins ble, no toenails to both great toes, hammertoes 2 3 4 5 both feet, dry skin rle. 05-01-18 LEFT HIP WITH A 1X1 CM OPEN WOUND,SCABBED,WITH PUS IN THE WOUND AREA. - Musculoskeletal/Rheumatological Hx Falls: Yes - Gastrointestinal Hx Gastrointestinal Disorders: Yes - Genitourinary/Gynecological Hx Genitourinary Disorders: Yes - Psychiatric Hx Psychophysiologic Disorder: Yes Hx Anxiety: Yes Hx Bipolar Disorder: Yes Hx Depression: Yes Hx Emotional Abuse: No Hx Panic Disorder: Yes Hx Physical Abuse: No Hx Substance Use: No - Past Surgical History Past Surgical History: Non-Contributing - Surgical History Hx Appendectomy: Yes (ovarian cyst and ap together) Other/Comment: b/l exc benign cluster of breast cysts 1972, lymph node bx, right chest wall vascular access, sigmoidectomy over 10 yrs ago, sx b/l carpal tunnel - Anesthesia Hx Anesthesia: Yes Hx Anesthesia Reactions: No Hx Malignant Hyperthermia: No - Suicidal Assessment Feels Threatened In Home Enviroment: No Family/Social History - Physician Review Nursing Documentation Reviewed: Yes Family/Social History: No Known Family HX Smoking Status: Never Smoked Hx Alcohol Use: No Hx Substance Use: No Hx Substance Use Treatment: No Allergies/Home Meds Allergies/Adverse Reactions: Allergies tetracycline Allergy (Severe, Verified 05/01/18 16:50) ANAPHYLAXIS Home Medications: Home Meds Medication Instructions Recorded Confirmed ARIPiprazole [Abilify] 5 mg PO HS 12/24/17 05/21/18 Clonazepam [Klonopin] 2 mg PO QID 12/24/17 05/21/18 Mirtazapine [Remeron] 30 mg PO HS 12/24/17 05/21/18 PARoxetine [Paxil] 30 mg PO HS 12/24/17 05/21/18 valACYclovir [Valtrex] 500 mg PO DAILY 04/05/18 05/21/18 oxyCODONE [oxyCODONE Immediate 5 mg PO QID PRN 04/25/18 05/21/18 Release Tab] Fentanyl [Duragesic Patch] 1 patch TD Q72 05/01/18 05/21/18 Review of Systems - Review of Systems Systems not reviewed;Unavailable: Altered Mental Status Respiratory: absent: SOB Cardiovascular: absent: Chest Pain Gastrointestinal: Abdominal Pain, Diarrhea Physical Exam Vital Signs Reviewed: Yes Vital Signs Temp Pulse Resp BP Pulse Ox 05/21/18 11:32 98.3 F 05/21/18 11:18 130 H 18 141/84 100 Temperature: Afebrile Blood Pressure: Normal Pulse: Tachycardic Appearance: Positive for: Non-Toxic, Uncomfortable, Cachectic Mental Status: Positive for: Lethargic - Systems Exam Head: Present: Atraumatic, Normocephalic Pupils: Present: PERRL Extroacular Muscles: Present: EOMI Conjunctiva: Present: Normal Mouth: Present: Dry Respiratory/Chest: Present: Clear to Auscultation, Good Air Exchange, Other ( palpable port in right upper claudia-thorax). No: Respiratory Distress, Accessory Muscle Use, Wheezes, Rales, Rhonchi Cardiovascular: Present: Normal S1, S2, Tachycardic, Other (Port palpable to right hemithorax). No: Murmurs Abdomen: Present: Tenderness (generalized tenderness to palpation), Normal Bowel Sounds. No: Distention, Peritoneal Signs, Rebound, Guarding Back: Present: Decubitus Ulcer (stage 1 ulcer noted to sacral region; stage 2 ulcer noted to left buttock) Upper Extremity: Present: Normal Inspection. No: Cyanosis, Edema Lower Extremity: Present: Normal Inspection, NORMAL PULSES. No: Edema, CALF TENDERNESS, Cyanosis, Swelling Neurological: Present: GCS=15, Speech Normal Skin: Present: Warm, Dry, Normal Color. No: Rashes Psychiatric: Present: Alert Medical Decision Making ED Course and Treatment: Impression: 87yo female, brought to Emergency room by daughter for evaluation of AMS Differential Diagnosis: UTI Pneumonia C.diff colitis Plan: -- Labs -- Urinalysis -- CT head w/o contrast -- Chest X-ray -- IV Fluids -- Reassess and disposition Prior Visits: Notes and results from previous visits were reviewed. Patient last seen in Emergency room on 05/01/18 and was admitted due to sepsis, UTI and dehydration Progress Notes: 05/21/18 12:44 Leukocytosis of 19 noted with shift. IV Flagyl initiated. Pending chemistries. 05/21/18 13:46 Chemistry results reviewed and are unremarkable. Case discussed with Dr. Clinton who accepts patient for admission. He is requesting Dr. Álvarez (ID) for consult. Dr. Clinton agreeable with current plan of care and management. - Lab Interpretations Narrative Lab Interpretation (Text): 05/21/18 13:02 CT Head w/o contrast IMPRESSION: No acute findings 05/21/18 13:04 Chest X-ray IMPRESSION: No acute findings. Lab Results: 05/21/18 12:00 05/21/18 12:00 Lab Results 05/21/18 12:00: Sodium 133, Chloride 98, Potassium 4.4, Carbon Dioxide 27, Anion Gap 12, BUN 21, Creatinine 0.9, Est GFR ( Amer) > 60, Est GFR (Non- Af Amer) 59, Random Glucose 121 H, Calcium 9.6, Phosphorus 3.3, Magnesium 1.7, Total Bilirubin 0.4, AST 28, ALT 10, Alkaline Phosphatase 86, Troponin I 0.02 D , Total Protein 6.8, Albumin 3.5, Globulin 3.3, Albumin/Globulin Ratio 1.1 05/21/18 12:00: pO2 35, VBG pH 7.38, VBG pCO2 46.0, VBG HCO3 27.2, VBG Total CO2 28.6 H, VBG O2 Sat (Calc) 71.7 H, VBG Base Excess 1.5, VBG Potassium 4.3, Sodium 131.0 L, Chloride 99.0, Glucose 120 H, Lactate 1.1, FiO2 21.0, Venous Blood Potassium 4.3 05/21/18 12:00: PT 12.3, INR 1.07, APTT 23.4 L 05/21/18 12:00: WBC 19.5 H D, RBC 3.30 L, Hgb 11.1 L D, Hct 32.7 L, MCV 99.1, MCH 33.6, MCHC 33.9, RDW 15.7 H, Plt Count 394, MPV 9.5, Gran % 89.2 H, Lymph % (Auto) 5.4 L, [place] % (Auto) 5.4, Eos % (Auto) 0.0 L, Baso % (Auto) 0.0, Gran # 17.36 H, Lymph # (Auto) 1.1 L, [place] # (Auto) 1.1 H, Eos # (Auto) 0.0, Baso # ( Auto) 0.00 - RAD Interpretation Radiology Orders: 05/21/18 11:44 HEAD W/O CONTRAST [CT] Stat 05/21/18 11:45 CHEST PORTABLE [RAD] Stat - EKG Interpretation EKG Interpretation (Text): Sinus tachycardia @ 138 BPM Left atrial enlargement No ST elevation No QT prolongation - Medication Orders Current Medication Orders: Discontinued Medications Sodium Chloride (Sodium Chloride 0.9%) 1,000 mls @ 999 mls/hr IV .Q1H1M STA Stop: 05/21/18 12:50 Last Admin: 05/21/18 12:25 Dose: 999 mls/hr eMAR Start Stop Document 05/21/18 12:25 HI (Rec: 05/21/18 12:27 HI [id number]) Intravenous Solution Start Date 05/21/18 Start Time 12:27 Metronidazole (Flagyl) 500 mg in 100 mls @ 100 mls/hr IVPB STAT STA PRN Reason: Protocol Stop: 05/21/18 13:32 Last Admin: 05/21/18 13:37 Dose: 100 mls/hr eMAR Start Stop Document 05/21/18 13:37 HI (Rec: 05/21/18 13:43 HI [id number]) Intravenous Solution Start Date 05/21/18 Start Time 13:43 Sodium Chloride (Sodium Chloride 0.9%) 1,000 mls @ 999 mls/hr IV .Q1H1M STA Stop: 05/21/18 14:45 Last Admin: 05/21/18 13:37 Dose: 999 mls/hr eMAR Start Stop Document 05/21/18 13:37 HI (Rec: 05/21/18 14:[id number] Intravenous Solution Start Date 05/21/18 Start Time 13:37 Morphine Sulfate (Morphine) 4 mg IVP STAT STA Stop: 05/21/18 17:05 - Scribe Statement The provider has reviewed the documentation as recorded by the Yakov Barber Provider Scribe Attestation: All medical record entries made by the Scribe were at my direction and personally dictated by me. I have reviewed the chart and agree that the record accurately reflects my personal performance of the history, physical exam, medical decision making, and the department course for this patient. I have also personally directed, reviewed, and agree with the discharge instructions and disposition. Disposition/Present on Arrival - Present on Arrival Any Indicators Present on Arrival: No History of DVT/PE: No History of Uncontrolled Diabetes: No Urinary Catheter: No History of Decub. Ulcer: No History Surgical Site Infection Following: None - Disposition Have Diagnosis and Disposition been Completed?: Yes Diagnosis: Altered mental status Disposition Time: 13:45 Patient Plan: Observation Condition: STABLE
[2018-05-21 12:24] LABS: VENOUS BLOOD GAS BASE EXCESS 1.5 mmol/L (0.0-2.0); VENOUS BLOOD GAS PO2 35 mm/Hg (30-55); VENOUS BLOOD PH 7.38 (7.32-7.43)
[2018-05-21 12:25] LABS: GRAN # 17.36 (1.4-6.5); GRAN % 89.2 % (50.0-68.0); HEMOGLOBIN 11.1 g/dL (12.0-16.0); LYMPH # 1.1 (1.2-3.4); LYMPH % 5.4 % (22.0-35.0); MEAN CELL VOLUME 99.1 fl (80.0-105.0); MEAN CORPUSCULAR HEMOGLOBIN 33.6 pg (25.0-35.0); MEAN CORPUSCULAR HGB CONC 33.9 g/dl (31.0-37.0); MEAN PLATELET VOLUME 9.5 fl (7.0-11.0); MONO # 1.1 (0.1-0.6); MONO % 5.4 % (1.0-6.0); RBC 3.3 10^6/uL (3.5-6.1); RED CELL DISTRIBUTION WIDTH 15.7 % (11.5-14.5); WHITE BLOOD COUNT 19.5 10^3/ul (4.5-11.0)
[2018-05-21 12:33] LABS: INR 1.07; PARTIAL THROMBOPLASTIN TIME 23.4 Seconds (25.1-36.5); PROTHROMBIN TIME 12.3 SECONDS (9.4-12.5)
[2018-05-21] MEDS ORDERED: metroNIDAZOLE IV 500 mg/100 ml 500 MG/100 ML BAG IVPB STA (12:33)
[2018-05-21 12:50] LABS: ALB/GLOB RATIO 1.1 (1.1-1.8); ALBUMIN 3.5 g/dL (3.0-4.8); ALT/SGPT 10 U/L (7-56); AST/SGOT 28 U/L (14-36); BLOOD UREA NITROGEN 21 mg/dL (7-21); CALCIUM 9.6 mg/dL (8.4-10.5); GFR NON-AFRICAN AMERICAN 59
[2018-05-21 12:54] LABS: TROPONIN I 0.02 ng/mL
--- NOTE | 2018-05-21 13:04 | CT ---
Date of service: 05/21/2018 PROCEDURE: CT HEAD WITHOUT CONTRAST. HISTORY: altered mental status COMPARISON: None available. TECHNIQUE: Axial computed tomography images were obtained through the head/brain without intravenous contrast. Radiation dose: Total exam DLP = 905 mGy-cm. This CT exam was performed using one or more of the following dose reduction techniques: Automated exposure control, adjustment of the mA and/or kV according to patient size, and/or use of iterative reconstruction technique. FINDINGS: HEMORRHAGE: No intracranial hemorrhage. BRAIN: No mass effect or edema. No atrophy or chronic microvascular ischemic changes. VENTRICLES: Unremarkable. No hydrocephalus. CALVARIUM: Unremarkable. PARANASAL SINUSES: Unremarkable as visualized. No significant inflammatory changes. MASTOID AIR CELLS: Unremarkable as visualized. No inflammatory changes. OTHER FINDINGS: None. IMPRESSION: No acute findings
--- NOTE | 2018-05-21 13:06 | RAD ---
Date of service: 05/21/2018 HISTORY: sob COMPARISON: 05/01/2018 FINDINGS: LUNGS: Right-sided MediPort terminates at the cavoatrial junction. The lungs are well inflated and clear. PLEURA: No significant pleural effusion identified, no pneumothorax apparent. CARDIOVASCULAR: Normal. OSSEOUS STRUCTURES: No significant abnormalities. VISUALIZED UPPER ABDOMEN: Normal. OTHER FINDINGS: None. IMPRESSION: No acute findings.
[2018-05-21] MEDS ORDERED: Morphine 4 mg/ml ISec IVP STA (17:04)
--- NOTE | 2018-05-21 20:29 | CARD ---
APPROVED REPORT Date of service: 05/21/2018 EKG Measurement Heart [id number] <Conclusion> Sinus tachycardia Possible Left atrial enlargement ST & T wave abnormality, consider inferolateral ischemia Abnormal ECG
[2018-05-21] MEDS: Vancomycin 25 MG/ML PO SCH ×2 (21:02→21:19)
[2018-05-21] MEDS: oxyCODONE 5 mg Immediate Release Tab PO PRN (21:03)
[2018-05-21] MEDS: Meropenem IV 1 gm in NS 50 ML IVPB SCH (21:03)
[2018-05-21] MEDS: metroNIDAZOLE IV 500 mg/100 ml 500 MG/100 ML BAG IVPB SCH (21:04)
[2018-05-21] MEDS: Sodium Chloride 0.9% 1,000 ML IV SCH (21:05)
--- NOTE | 2018-05-22 01:18 | CON ---
DATE: 05/21/2018 LOCATION: The patient is seen in the emergency room. CHIEF COMPLAINT: Weakness, diarrhea and confusion x1 day duration. 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 diff, was sent home on p.o. vancomycin, now returns with confusion, diarrhea, abdominal cramps. No nausea, no vomiting. REVIEW OF SYSTEMS: Reveals no chest pain. There is mild shortness of breath. No cough. No hemoptysis. No headaches. No dysuria or frequency. A 12-point review of systems performed. PAST MEDICAL HISTORY: Significant for stage IV squamous cell cancer of unknown primary, high cholesterol, hyperlipidemia, diverticulitis, left-sided hydronephrosis, spinal stenosis, anxiety. PAST SURGICAL HISTORY: Significant for left ankle surgery, appendectomy, and a Port-A-Cath placement. ALLERGIES: THE PATIENT IS ALLERGIC TO TETRACYCLINE. MEDICATIONS AT HOME: Reviewed. PHYSICAL EXAMINATION: GENERAL: The patient is in bed in the emergency room. She is responsive. She is slow to answer. VITAL SIGNS: Temperature of 98, heart rate of 127, blood pressure is 140/80, respiratory rate of 18, oxygenation in room air is saturating at 100%. HEENT: Unremarkable. NECK: Supple. LUNGS: Have decreased breath sounds. HEART: Normal S1, S2. ABDOMEN: Soft, nontender. No organomegaly. No rebound, no guarding. No masses. LABORATORY EXAMINATION: Reveals a white count of 19,000, hemoglobin of 11, platelets of 394, 89% granulocytosis. Coagulation is noted. Blood gases are reviewed. The chemistries are essentially unremarkable except for random glucose of 121. Urinalysis is pending. The patient had a chest x-ray, which is negative. CT scan of the head, which is negative. The emergency room chart is reviewed. EKG is pending. 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 1. Systemic inflammatory response syndrome, must rule out recurrent pseudomembranous colitis versus other gastrointestinal pathology. We have ordered p.o. vancomycin, intravenous Flagyl, meropenem. Pending blood culture, urine culture, stool for clostridium difficile and stool cultures. We will make further recommendations upon the availability of initial results. We will follow closely with you. Case discussed with the emergency room staff at length. Sebastian Álvarez MD
[2018-05-22] MEDS: Meropenem IV 1 gm in NS 50 ML IVPB SCH ×2 (06:26→21:48)
[2018-05-22] MEDS: metroNIDAZOLE IV 500 mg/100 ml 500 MG/100 ML BAG IVPB SCH ×3 (06:27→21:48)
[2018-05-22] MEDS: Sodium Chloride 0.9% 1,000 ML IV SCH ×2 (06:27→10:56)
--- NOTE | 2018-05-22 09:10 | HP ---
HISTORY OF PRESENT ILLNESS: This is an 87-year-old female who is coming to the hospital because of weakness and fatigue. The patient was having loose stools. The patient does have a history of C. diff. She has been getting chemotherapy for squamous cell carcinoma in the left side of her abdomen of unknown etiology. The patient was confused. She was not realizing that her daughter was with her when she was at home. The patient's daughter was concerned and brought her in for further evaluation. She is following Dr. Hernandez for her Oncology care. She does recognize me. She knows she is in the hospital this morning. She has speech that is slow. She has no complaints of any headaches or dizziness. No nausea, no vomiting. No dysuria, frequency or nocturia. REVIEW OF SYSTEMS: Limited because the patient is not fully alert and is not able to answer all questions. ALLERGIES: TO TETRACYCLINE. 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 diff. FAMILY HISTORY: Colon cancer. PAST SURGICAL HISTORY Right-sided chest port, appendectomy, sigmoidectomy. SOCIAL HISTORY: She is a former smoker. She denies alcohol or drugs. PHYSICAL EXAMINATION: VITAL SIGNS: Temperature is 100, blood pressure is 139/82, pulse of 115, O2 saturation is 96%. GENERAL: The patient lying in bed, uncomfortable, and in no acute distress. HEENT: Atraumatic and normocephalic. Anicteric sclerae. Moist mucosa. [place] conjunctivae. No oral lesions. NECK: No JVD, anterior and posterior adenopathy, thyromegaly, or bruits. CARDIOVASCULAR: tachycardia. LUNGS: Right-sided chest port. ABDOMEN: Bowel sounds are positive. Soft, nontender and nondistended. No hepatosplenomegaly. No rebound and no guarding. EXTREMITIES: No cyanosis, clubbing, or edema. NEUROLOGIC: No facial asymmetry. Tongue is midline. No uvula deviation. Power is 5/5 upper extremity and lower extremity. Sensation intact in upper extremity and lower extremity. PSYCHIATRIC: She is awake, alert and oriented x3. No anxiety or depression. She has normal affect. GENITOURINARY: No CVA tenderness. VASCULAR: 2+ pulses in the carotid pulses and pedal pulses. SKIN: No erythema or nodules SPINE: Shows normal curvature. LABORATORY DATA: White count of 19.5, hemoglobin 11.1, platelet count is 394. Chemistry shows sodium 133, potassium 4.4, troponin is 0.02. INR is 1.07. Chest x-ray done shows no acute findings. EKG shows sinus tachycardia of 138. CT of the head shows no acute findings. ASSESSMENT: 1. Sepsis. 2. Probable clostridium difficile colitis. 3. Stage IV squamous cell cancer of unknown etiology. 4. Bipolar disorder. 5. Osteoarthritis. 6. Delirium. PLAN: The patient has elevated white count. She is tachycardic. She has a history of C. diff. The patient will need to be used restarted on antibiotics for C. diff. She has been placed on vancomycin and Flagyl. She was given IV fluids. She is going to be seen by Infectious Disease, Neurology and Oncology. The patient is on Percocet for pain, is on Paxil for mood disorder. She is on Protonix. The patient is on Abilify, this will be continued. She is on a heart-healthy diet. I did speak to the patient's daughter to give her an update on the patient's diagnosis and plan of care. She has blood cultures and urine cultures that are pending as well. I will transfer to remote Tele. Oleg Floyd MD
[2018-05-22] MEDS: Vancomycin 25 MG/ML PO SCH ×4 (10:53→21:50)
[2018-05-22 11:00] LABS: BASO # 0.01 K/mm3 (0.0-2.0); BASO % 0.1 % (0.0-3.0); EOS % 0.1 % (1.5-5.0); GRAN # 13.46 (1.4-6.5); LYMPH # 0.8 (1.2-3.4); LYMPH % 5.6 % (22.0-35.0); MEAN CELL VOLUME 99.3 fl (80.0-105.0); MEAN CORPUSCULAR HGB CONC 32.3 g/dl (31.0-37.0); MEAN PLATELET VOLUME 9.2 fl (7.0-11.0); MONO # 0.3 (0.1-0.6); MONO % 2.2 % (1.0-6.0); PLATELET COUNT 262 10^3/uL (120.0-450.0); RBC 2.81 10^6/uL (3.5-6.1); WHITE BLOOD COUNT 14.6 10^3/ul (4.5-11.0)
[2018-05-22 11:11] LABS: ALB/GLOB RATIO 0.9 (1.1-1.8); ALBUMIN 2.6 g/dL (3.0-4.8); ALT/SGPT 15 U/L (7-56); AST/SGOT 22 U/L (14-36); BLOOD UREA NITROGEN 14 mg/dL (7-21); CALCIUM 8.5 mg/dL (8.4-10.5); GFR NON-AFRICAN AMERICAN > 60
[2018-05-22 12:17] LABS: ANISOCYTOSIS 1+; BAND 3 % (0-2); HYPOCHROMIA 2+; LYMPHOCYTE 5 % (22.0-35.0); MONOCYTE 1 % (1.0-6.0); NEUTROPHIL 91 % (50.0-70.0); PLATELET ESTIMATE NORMAL (NORMAL); POLYCHROMASIA SLIGHT
[2018-05-22 12:18] LABS: OVALOCYTES SLIGHT; TEAR DROP CELLS SLIGHT
[2018-05-22] MEDS ORDERED: Potassium Chloride 20 mEq ER Tab PO ONE (12:20)
[2018-05-22] MEDS ORDERED: Magnesium Sulfate 2 gm/50 ml 2 GM/50 ML BAG IVPB ONE (12:21)
[2018-05-22] MEDS: oxyCODONE 5 mg Immediate Release Tab PO PRN ×3 (13:12→22:59)
--- NOTE | 2018-05-22 15:45 | CP.PCM.PN ---
Subjective - Date & Time of Evaluation Date of Evaluation: 05/22/18 Time of Evaluation: 10:00 - Subjective Subjective: Still with diarrhea, still with abdominal pain but a little less, no fevers. Objective - Vital Signs/Intake and Output Vital Signs (last 24 hours): Temp Pulse Resp BP Pulse Ox 99.9 F H 122 H 18 163/77 H 96 05/22/18 00:01 05/22/18 02:00 05/22/18 00:01 05/22/18 00:01 05/22/18 00:01 Intake and Output: 05/22/18 05/22/18 06:59 18:59 Intake Total 360 Output Total 100 Balance 260 - Medications Medications: Current Medications Acetaminophen (Tylenol 325mg Tab) 650 mg PO Q4H PRN PRN Reason: Fever >100.4 F Last Admin: 05/22/18 00:26 Dose: 650 mg Metronidazole (Flagyl) 500 mg in 100 mls @ 100 mls/hr IVPB Q8 [facility] PRN Reason: Protocol Stop: 05/30/18 22:01 Last Admin: 05/22/18 06:27 Dose: 100 mls/hr Meropenem (Merrem Iv 1 Gm Premix) 50 mls @ 100 mls/hr IVPB Q8 [id number] PRN Reason: Protocol Stop: 05/30/18 22:01 Last Admin: 05/22/18 06:26 Dose: 100 mls/hr Sodium Chloride (Sodium Chloride 0.9%) 1,000 mls @ 80 mls/hr IV .A10P14M [facility] Last Admin: 05/22/18 06:27 Dose: 80 mls/hr Oxycodone HCl (Oxycodone Immediate Release Tab) 5 mg PO QID PRN PRN Reason: Pain, moderate (4-7) Last Admin: 05/21/18 21:03 Dose: 5 mg Pantoprazole Sodium (Protonix Inj) 40 mg IVP DAILY [facility] Paroxetine HCl (Paxil) 30 mg PO HS [facility] Last Admin: 05/21/18 21:02 Dose: 30 mg Valacyclovir HCl (Valtrex) 500 mg PO DAILY [facility] PRN Reason: Protocol Vancomycin HCl (Vancocin 25 Mg/Ml (Oral Use)) 250 mg PO QID [facility] PRN Reason: Protocol Stop: 06/04/18 19:09 Last Admin: 05/21/18 21:19 Dose: Not Given - Labs Labs: PT 12.3 SECONDS (9.4-12.5) 05/21/18 12:00 INR 1.07 05/21/18 12:00 APTT 23.4 Seconds (25.1-36.5) L 05/21/18 12:00 - Constitutional Appears: Chronically Ill - Head Exam Head Exam: NORMAL INSPECTION - ENT Exam ENT Exam: Mucous Membranes Moist - Neck Exam Neck Exam: absent: Meningismus - Respiratory Exam Respiratory Exam: Decreased Breath Sounds - Cardiovascular Exam Cardiovascular Exam: +S1, +S2 - GI/Abdominal Exam GI & Abdominal Exam: Soft. absent: Tenderness Assessment and Plan - Assessment and Plan (Free Text) Plan: Assessment severe sepsis from severe C. diff. pancolitis, probably recurrence, R/O other cause of intra-abdominal infection R/O bacteremia S/P sepsis due to UTI with Klebsiella necrotic retroperitoneal mass - patient with stage 4 cancer history of sepsis due to severe C. diff. colitis history of sepsis due to left lower lobe community-acquired pneumonia R/O UTI from Klebsiella depression cataracts right ear deafness history of C. diff. infection irritable bowel syndrome S/P appendectomy Plan continue PO Vancomycin and IV Flagyl day 2 and Merrem pending final blood cx results (negative x 1 day) will continue to monitor clinically overall prognosis is poor
--- NOTE | 2018-05-22 16:53 | CON ---
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 diff in the past, who came in confused and she was not realizing that where she was and the daughter brought her in for evaluation. She had abdominal pain and diarrhea. She was found to have C. diff, again severe sepsis from C. diff, pancolitis, probably a reoccurrence. ID is on board. The patient has necrotic retroperitoneal mass with stage IV cancer, but follows some commands. She knows the date and month and knows the season. Knows the vice president of human resources and follows simple commands. Recall after 5 minutes is 1/3. Poor attention span. Slow thought process. CAT scan of the head shows no acute intracranial abnormalities. Chronic ischemic changes. PAST MEDICAL HISTORY: As above. ALLERGIES: NOTED TO TETRACYCLINE. SOCIAL HISTORY: No illicit drug use, smoking or EtOH abuse. MEDICATIONS: Reviewed by nurses' reconciliation sheet. FAMILY HISTORY: Noncontributory. LABORATORY DATA: WBC is 14.6, hemoglobin 9, hematocrit 27.9, platelet count 262. Sodium is 133, potassium 3.4, chloride 103, carbon dioxide of 23, BUN of 14, creatinine 0.7, random glucose 149. C. diff antigen and toxin were done shows C. diff positive antigen. PHYSICAL EXAMINATION: VITAL SIGNS: Temperature is 99.8, pulse rate of 122, blood pressure 123/68, respiratory rate of 20. GENERAL: The patient is sitting up in bed, in no acute distress. HEENT: Atraumatic, normocephalic. PERRLA. Extraocular muscles intact. NECK: Supple. No JVD. No adenopathy noted. LUNGS: Clear to auscultation. No adventitious sounds. HEART: S1, S2. Normal rate and rhythm. No murmurs, rubs or gallops. ABDOMEN: Soft, nontender and nondistended. Bowel sounds are present. Has a right-sided chest port. EXTREMITIES: No clubbing. No cyanosis. Peripheral pulses 2+ felt bilaterally. NEUROLOGIC: The patient is alert and oriented to person, place and year. Recall after 5 minutes is 0/3. Poor attention span. Slow thought process. Knows the season. Knows the vice president of human resources. Speech is fluent without any errors. Motor exam: Slightly increased tone throughout. Moves all extremities equally. Mildly deconditioned. Sensory exam: Light touch, pinprick, proprioception and vibration are intact. DTRs are 2+ throughout, 1 at both knees and ankles. Coordination: [id number] intact. No dysmetria noted. Gait is deferred for now. 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 Found to have severe sepsis from underlying Clostridium difficile, pancolitis, probably a reoccurrence. In addition, I was consulted for confusion. She has a transient confusional state secondary to underlying sepsis from underlying Clostridium difficile superimposed on underlying cognitive impairment. At this time, I recommend, 1. Monitor electrolytes and correct accordingly. 2. Continue with Infectious Disease recommendation in regards to her Clostridium difficile. She is currently on meropenem and metronidazole. 3. Avoid any sedative medications. 4. Could consider Namenda 10 mg p.o. daily for cognitive impairment and continue with current present medical management. Frequent orientation throughout the day and delirium precautions. Thank you for this consult. Fabio Cabezas MD
[2018-05-22] MEDS: Magnesium Oxide 400 mg Tab UD PO SCH (17:15)
[2018-05-22] MEDS: Potassium & Sodium Phosphate PO SCH (17:15)
--- NOTE | 2018-05-22 21:53 | CON ---
DATE: 05/22/2018 REASON FOR CONSULTATION: Squamous cell cancer, unknown primary; diarrhea. HISTORY OF PRESENT ILLNESS: Ms. Hill is an 87-year-old female presented to the ED with confusion and loose stools. She recently received single dose of Abraxane chemotherapy. She has retroperitoneal mass, squamous cell pathology. She had a few loose stools at home. Daughter found her to be confused. She has a history of C. diff colitis. She did not take vancomycin, upon discharge from the hospital, from previous hospitalization. Daughter has also reported in the past that she overdose herself with oxycodone. Daughter communicated to me that she takes oxycodone like a candy. Since then, daughter has been managing the oxycodone for her as and when needed p.r.n. for abdominal pain. No fever. No cough with expectoration. Oral intake, poor. Mid abdominal pain, diffuse. REVIEW OF SYSTEMS: As per HPI. Rest of 12-point review of systems reviewed negative. ALLERGIES: TETRACYCLINE. PAST MEDICAL HISTORY: Retroperitoneal mass, bipolar disorder, dyslipidemia, osteoarthritis. FAMILY HISTORY: Positive for colon cancer. PAST SURGICAL HISTORY: Biopsy, appendectomy, sigmoidectomy, right-sided port placement. PERSONAL HISTORY: Ex-smoker. Denies any history of alcohol. PHYSICAL EXAMINATION: GENERAL: Comfortable in bed, in no acute distress. VITAL SIGNS: Temperature 100, blood pressure 130/70, pulse is 100 per minute, oxygen saturation 98% on room air. HEENT: Pallor positive. NECK: No lymphadenopathy. CHEST: Air entry present and equal bilaterally. No added sounds. CARDIOVASCULAR: S1, S2 normal. No murmur. No gallop. ABDOMEN: Soft, nontender. No hepatosplenomegaly. EXTREMITIES: No edema. CENTRAL NERVOUS SYSTEM: Alert, oriented x3. No focal sensory or motor deficit. LABORATORY DATA: White count 19,000, hemoglobin 11, platelet count 394. Sodium 133, potassium 4, INR 1.07. Chest x-ray, no infiltrate. ASSESSMENT: 1. Colitis, likely clostridium difficile. 2. Stage IV, squamous cell cancer, unknown primary. 3. Bipolar disorder. 4. Confusion-resolved. 5. Anemia, leukocytosis. PLAN: She is admitted to the hospital, currently on broad-spectrum antibiotics with meropenem, Flagyl and oral vancomycin. Valtrex 500 mg p.o. daily for herpes prophylaxis. IV fluid at 80 mL an hour. Pain control with oxycodone 5 mg four times a day p.r.n. Continue magnesium 400 mg p.o. b.i.d. Leukocytosis likely due to colitis. Hypokalemia, on oral potassium. Anemia, hemoglobin declined to 9, continue to monitor clinically, one dose of IV iron 200 mg. Thank you, Dr. Floyd for allowing us to participate in Ms. Hill's care. Alma Hernandez MD
[2018-05-23 01:46] VITALS: O2SAT 98
[2018-05-23] MEDS: metroNIDAZOLE IV 500 mg/100 ml 500 MG/100 ML BAG IVPB SCH ×2 (06:42→13:32)
[2018-05-23] MEDS: oxyCODONE 5 mg Immediate Release Tab PO PRN ×2 (06:44→13:32)
[2018-05-23 06:49] LABS: BASO # 0.01 K/mm3 (0.0-2.0); BASO % 0.1 % (0.0-3.0); EOS # 0.2 (0.0-0.7); EOS % 1.9 % (1.5-5.0); GRAN # 10.87 (1.4-6.5); GRAN % 84.9 % (50.0-68.0); HEMOGLOBIN 8.5 g/dL (12.0-16.0); LYMPH # 1.2 (1.2-3.4); LYMPH % 9.5 % (22.0-35.0); MEAN CELL VOLUME 98.1 fl (80.0-105.0); MEAN CORPUSCULAR HEMOGLOBIN 31.5 pg (25.0-35.0); MEAN CORPUSCULAR HGB CONC 32.1 g/dl (31.0-37.0); MEAN PLATELET VOLUME 9.3 fl (7.0-11.0); MONO # 0.5 (0.1-0.6); MONO % 3.6 % (1.0-6.0); RBC 2.7 10^6/uL (3.5-6.1); WHITE BLOOD COUNT 12.8 10^3/ul (4.5-11.0)
[2018-05-23 07:25] LABS: BLOOD UREA NITROGEN 9 mg/dL (7-21); CALCIUM 7.9 mg/dL (8.4-10.5); GFR NON-AFRICAN AMERICAN > 60
[2018-05-23] MEDS: Potassium & Sodium Phosphate PO SCH (09:22)
[2018-05-23] MEDS: Magnesium Oxide 400 mg Tab UD PO SCH (09:22)
[2018-05-23] MEDS: Meropenem IV 1 gm in NS 50 ML IVPB SCH (09:23)
[2018-05-23 09:28] LABS: IRON 236 ug/dL (45-180)
[2018-05-23 09:37] LABS: % IRON SATURATION 124 % (20-55); TOTAL IRON BINDING CAPACITY 190 ug/dL (265-497)
[2018-05-23] MEDS ORDERED: Darbepoetin Alfa 100 mcg/ml Inj SC ONE (09:54)
[2018-05-23] MEDS: Vancomycin 25 MG/ML PO SCH ×2 (09:56→13:32)
[2018-05-23] MEDS ORDERED: Potassium Chloride 20 mEq ER Tab PO ONE ×2 (10:00→20:00)
[2018-05-23] MEDS: Sodium Chloride 0.9% 1,000 ML IV SCH (10:30)
[2018-05-23 12:08] VITALS: BP 116/64; PULSE 101; RESP 20; TEMP 98.7
[2018-05-23 12:47] LABS: FOLATE 4.6 ng/mL
--- NOTE | 2018-05-23 14:57 | DS ---
HISTORY OF PRESENT ILLNESS: This is an 87-year-old female, who came in to the hospital with an elevated white cell count. The patient has improvement of her white cell count. She was initially at 19.5 and decreased to 12.8. She had blood cultures that were negative. Her C. diff shows antigen was positive, but toxin was negative. She does not have any diarrhea. The patient has been undergoing chemotherapy for her squamous cell carcinoma of unknown etiology. She is not eating well. She was dehydrated and that has improved. She is currently on Flagyl, magnesium. She is going to continue her vancomycin. She is on IV fluids. I will discontinue the patient's IV fluids at this point. The patient is open to going to the Transitional Care Unit. I will send the patient to the Transitional Care Unit today. She was seen by Physical Therapy yesterday. CONDITION: Stable. ACTIVITIES: Increase as tolerated. Oleg Floyd MD
--- NOTE | 2018-05-23 15:27 | PN ---
DATE: 05/23/2018 SUBJECTIVE: The patient is in bed, seen earlier today in 263. PHYSICAL EXAMINATION VITAL SIGNS: Temperature is 98, blood pressure is 116/60, respiratory rate of 18. HEENT: Unremarkable. NECK: Supple. LUNGS: Have decreased breath sounds. HEART: Normal S1 and S2. ABDOMEN: Soft, nontender. LABORATORY DATA: Reveals a white count of 12,800, hemoglobin of 8, platelets of 255. Coagulation is noted. Chemistries reveal a BUN of 9, creatinine of 0.6. Microbiology reveals C. diff antigen is positive, toxin is negative. Blood cultures are no growth. Review of orders reveals the patient to be on IV Flagyl and p.o. vancomycin. ASSESSMENT AND PLAN: An 87-year-old female with severe sepsis with secondary to pseudomembranous colitis and negative blood cultures. Currently on p.o. vancomycin, IV Flagyl day #3. Once diarrhea resolves and much improved, may complete with p.o. vancomycin alone. Sebastian Álvarez MD
[2018-05-24] MEDS ORDERED: Pantoprazole 40 mg EC Tab PO SCH (07:30)
== END 2018-05-23 15:07 | DRG 872 ==
LOC: ED 10:39 → ERH 13:46 → 2RNO 19:15 → OBSVTOIN 05-22 14:20
PROVIDERS: ADMIT Internal Medicine Nephrology; ATTEND Internal Medicine Nephrology
DX: A41.9 Sepsis, unspecified organism (principal); A04.72 Enterocolitis due to Clostridium difficile, not specified as recurrent; R65.20 Severe sepsis without septic shock; C80.1 Malignant (primary) neoplasm, unspecified; F41.9 Anxiety disorder, unspecified; F31.9 Bipolar disorder, unspecified; F41.0 Panic disorder [episodic paroxysmal anxiety]; M19.90 Unspecified osteoarthritis, unspecified site; E86.0 Dehydration; I10 Essential (primary) hypertension; E87.6 Hypokalemia; D64.9 Anemia, unspecified; R41.0 Disorientation, unspecified; E78.5 Hyperlipidemia, unspecified; H26.9 Unspecified cataract; H91.91 Unspecified hearing loss, right ear; M48.00 Spinal stenosis, site unspecified; Z87.01 Personal history of pneumonia (recurrent); Z80.0 Family history of malignant neoplasm of digestive organs; Z87.891 Personal history of nicotine dependence

== ENCOUNTER 2018-07-17 14:06 | Observation (INO) | payer MEDICARE, OTHER ==
[2018-07-17 14:18] VITALS: BMI 16.2
[2018-07-17] MEDS ORDERED: Sodium Chloride 0.9% 1,000 ML IV STA (14:25)
--- NOTE | 2018-07-17 14:29 | ED PDOC ---
Arrival/HPI - General Time Seen by Provider: 07/17/18 14:16 Historian: Patient - History of Present Illness Narrative History of Present Illness (Text): 07/17/18 14:24 A 87 year old female, whose past medical history includes squamous cell carcinoma, presents to the emergency department complaining of constipation and lower abdominal pain starting earlier this afternoon. Patient reports she is currently taking medications for chemo. States having experiencing similar symptoms in the past. However, patient denies ever having a manual disimpaction performed. Patient denies any nausea, vomiting, diarrhea, or any other complaints at this time. PMD: Dr. Clinton Oncologist: Dr. 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) - Renal Hx Renal Disorder: Yes (left kidney ca) Hx Renal Cancer: Yes (dx 11/2017) Other/Comment: 11/26/17 cystoscope, left retrograde pyelogram,unsucessful attempt to insert stent, bladder biopsies: dx left hydronephrosis, squamous cell ca - Endocrine/Metabolic Hx Endocrine Disorders: No - Hematological/Oncological Hx Blood Disorders: Yes Hx Cancer: Yes (small tumor found in left kidney) Hx Chemotherapy: Yes (every other week started 10wks ago) Other/Comment: recently dx 11/2017 - Integumentary Hx Dermatological Disorder: Yes Other/Comment: multiple moles to back, spider veins ble, no toenails to both great toes, hammertoes 2 3 4 5 both feet, dry skin rle. 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) - Genitourinary/Gynecological Hx Reproductive Disorders: Yes (benign breasts cysts) - Psychiatric Hx Psychophysiologic Disorder: Yes Hx Anxiety: Yes Hx Bipolar Disorder: Yes Hx Depression: Yes Hx Emotional Abuse: No Hx Panic Disorder: Yes Hx Physical Abuse: No Hx Substance Use: No - Past Surgical History Past Surgical History: Non-Contributing - Surgical History Hx Appendectomy: Yes (ovarian cyst and ap together) Other/Comment: b/l exc benign cluster of breast cysts 1972, lymph node bx, right chest wall vascular access, sigmoidectomy over 10 yrs ago, sx b/l carpal tunnel - Anesthesia Hx Anesthesia: Yes Hx Anesthesia Reactions: No Hx Malignant Hyperthermia: No - Suicidal Assessment Feels Threatened In Home Enviroment: No Family/Social History - Physician Review Nursing Documentation Reviewed: Yes Family/Social History: No Known Family HX Smoking Status: Former Smoker Hx Alcohol Use: No Hx Substance Use: No Hx Substance Use Treatment: No Allergies/Home Meds Allergies/Adverse Reactions: Allergies tetracycline Allergy (Severe, Verified 07/17/18 14:22) ANAPHYLAXIS Home Medications: Home Meds Medication Instructions Recorded Confirmed RX: ARIPiprazole [Abilify] 5 mg PO HS 12/24/17 07/17/18 RX: Clonazepam [Klonopin] 2 mg PO QID 12/24/17 07/17/18 RX: Mirtazapine [Remeron] 30 mg PO HS 12/24/17 07/17/18 RX: PARoxetine [Paxil] 30 mg PO HS 12/24/17 07/17/18 RX: oxyCODONE [oxyCODONE Immediate 5 mg PO QID PRN 04/25/18 07/17/18 Release Tab] RX: Fentanyl [Duragesic Patch] 12 mcg TD Q72 05/01/18 07/17/18 Review of Systems - Physician Review All systems were reviewed & negative as marked: Yes - Review of Systems Constitutional: absent: Fevers, Night Sweats Gastrointestinal: Abdominal Pain (lower abdominal pain), Constipation. absent: Diarrhea, Nausea, Vomiting Physical Exam - Physical Exam Narrative Physical Exam (Text): Gen: VS reviewed, alert, well developed, cachectic, nontoxic, mild distress. ENT: normal pharynx. Eye: EOMI, PERRL. Neck: no JVD, supple, no adenopathy. CV: tachycardic, regular rhythm, no rubs, no murmur, no gallops, S1, S2, pulses equal and strong. Pulm: no distress, clear to auscultation, no wheeze, no rhonchi, breath sounds equal, no rales. Abd: mild left-side abdominal tenderness, no guarding, no rebound, no rigidity. Ext: no edema. Skin: good color, no rash, no cyanosis. Psych: responds appropriately to questions, normal affect. Neuro: oriented x 3, CN2-12 intact grossly, motor intact, sensation intact. Vital Signs Reviewed: Yes Vital Signs Temp Pulse Resp BP Pulse Ox 07/17/18 14:18 98.4 F 124 H 20 121/64 95 Temperature: Afebrile Blood Pressure: Normal Pulse: Tachycardic Respiratory Rate: Normal Appearance: Positive for: Cachectic Pain Distress: None Mental Status: Positive for: Alert and Oriented X 3 Medical Decision Making ED Course and Treatment: 07/17/18 14:28 Impression: 87 year old female with lower abdominal pain and constipation. Physical exam appears cachectic; heart is tachycardic; has mild left abdominal tenderness with no guarding/rebound/rigidity; no other acute findings on physical exam. Plan: -- Abdominal X-ray -- Labs -- Urinalysis -- IV Fluids -- Reassess and disposition Prior Visits: Notes and results from previous visits were reviewed. Patient was last seen in the emergency department on 05/21/2018 for AMS. Patient was admitted. Progress Notes: 07/17/18 18:[address] Clinton, who has accepted to admit patient under medical surgery (observation status).Patient to be treated for severe case of constipation but abdominal exam is benign. On rectal exam, there was stool in the rectal vault but not impacted or within a proximity amenable to disimpaction. enema and magnesium citrate ordered however patient may require more aggressive measures. 07/17/18 18:45 07/17/18 18:45 - Lab Interpretations I have reviewed the lab results: Yes - RAD Interpretation Radiology Orders: 07/17/18 14:24 ABDOMEN (FLAT PLATE) 1VIEW [RAD] Stat - EKG Interpretation EKG Interpretation (Text): 07/17/18 14:26 ekg my read: sinus tach at 118 bpm, nml qrs, nml axis, no acute sttw abn Interpreted by ED Physician: Yes - Medication Orders Current Medication Orders: Sodium Chloride (Sodium Chloride 0.9%) 1,000 mls @ 999 mls/hr IV .Q1H1M STA Stop: 07/17/18 15:25 - Scribe Statement The provider has reviewed the documentation as recorded by the Yakov Azevedo Provider Barbaraibe Attestation: All medical record entries made by the Scribe were at my direction and personally dictated by me. I have reviewed the chart and agree that the record accurately reflects my personal performance of the history, physical exam, medical decision making, and the department course for this patient. I have also personally directed, reviewed, and agree with the discharge instructions and disposition. Disposition/Present on Arrival - Present on Arrival Any Indicators Present on Arrival: No History of DVT/PE: No History of Uncontrolled Diabetes: No Urinary Catheter: No History Surgical Site Infection Following: None - Disposition Have Diagnosis and Disposition been Completed?: Yes Diagnosis: Constipation Disposition: HOSPITALIZED Disposition Time: 18:32 Condition: STABLE
[2018-07-17 15:05] LABS: BASO # 0.02 K/mm3 (0.0-2.0); BASO % 0.2 % (0.0-3.0); EOS % 0.4 % (1.5-5.0); GRAN # 7.57 (1.4-6.5); GRAN % 78.8 % (50.0-68.0); HEMOGLOBIN 9.2 g/dL (12.0-16.0); LYMPH # 1.1 (1.2-3.4); LYMPH % 11.1 % (22.0-35.0); MEAN CELL VOLUME 91.6 fl (80.0-105.0); MEAN CORPUSCULAR HEMOGLOBIN 28.7 pg (25.0-35.0); MEAN CORPUSCULAR HGB CONC 31.3 g/dl (31.0-37.0); MEAN PLATELET VOLUME 9.6 fl (7.0-11.0); MONO # 0.9 (0.1-0.6); MONO % 9.5 % (1.0-6.0); RBC 3.21 10^6/uL (3.5-6.1); RED CELL DISTRIBUTION WIDTH 16.4 % (11.5-14.5); WHITE BLOOD COUNT 9.6 10^3/uL (4.5-11.0)
[2018-07-17 15:15] LABS: ALB/GLOB RATIO 0.9 (1.1-1.8); ALBUMIN 3.1 g/dL (3.0-4.8); ALT/SGPT 27 U/L (7-56); AST/SGOT 28 U/L (14-36); BLOOD UREA NITROGEN 41 mg/dL (7-21); CALCIUM 9.3 mg/dL (8.4-10.5); GFR NON-AFRICAN AMERICAN 52
[2018-07-17] MEDS ORDERED: Mineral Oil Enema 135 ml RC ONE (17:11)
--- NOTE | 2018-07-17 17:50 | CARD ---
APPROVED REPORT Date of service: 07/17/2018 EKG Measurement Heart [id number] <Conclusion> Sinus tachycardia Nonspecific ST and T wave abnormality Abnormal ECG
[2018-07-17] MEDS ORDERED: Magnesium Citrate Oral SOL (300 ml) PO ONE (18:32)
[2018-07-17] MEDS ORDERED: oxyCODONE 5 mg Immediate Release Tab PO PRN (19:51)
[2018-07-17 21:30] VITALS: RESP 18
--- NOTE | 2018-07-18 08:24 | CP.PCM.HP ---
<Adan Capone - Last Filed: 07/18/18 13:35> History of Present Illness - History of Present Illness History of Present Illness: Adan Capone PGY2 IM H&P Note for Dr. Floyd cc: constipation Ms. Hill is an 87 year old female with a PMH of Stage IV left retr operitoneal SCC of unknown primary origin, Bipolar disorder, DLD, and OA who presented to the ED with inability to pass stool for 3 days. The patient states that she normally has normal BM's. Upon examination, the patient had already passed 5 large BM's. In ED, ABD XR showed severe constipation w/ fecal impaction in sigmoid colon and rectum that was nonobstructive in nature. EKG showed sinus tachycardia @ 118 bpm. In ED, patient received mag citrate and fleet enema. Upon my evaluation, the patient's abdomen was nontender, and she has no complaints including fever/chills, nausea/vomiting. Patient finished 2 cycles of Abraxane 2 weeks ago, and will follow-up with Dr. Hernandez later this month. 12-pt ROS was reviewed and is otherwise unremarkable. PMD: Dr. Floyd PMH: as above PSH: right-sided chest port, appendectomy Meds: as per MAR, reviewed Allergies: tetracycline SHx: former smoker, denies EtOH or drugs FHx: colon ca Present on Admission - Present on Admission Any Indicators Present on Admission: No Review of Systems - Review of Systems All systems: reviewed and no additional remarkable complaints except (as per HPI) Past Patient History - Infectious Disease Hx of Infectious Diseases: C.diff - Tetanus Immunizations Tetanus Immunization: Unknown - Past Medical History & Family History Past Medical History?: Yes Past Family History: Reviewed and not pertinent - Past Social History Smoking Status: Former Smoker Alcohol: None Drugs: Denies Home Situation {Lives}: With Family (daughter) - CARDIAC Hx Cardiac Disorders: Yes Hx Hypercholesterolemia: Yes Other/Comment: RT subclavian port - PULMONARY Hx Respiratory Disorders: Yes (SMOKED CIGARETTES BEFORE QUIT PK EVERY OTHER DAY) Hx Pneumonia: Yes Other/Comment: quit smoking over 25 yrs ago - NEUROLOGICAL Hx Neurological Disorder: Yes Hx Dizziness: Yes - HEENT Hx HEENT Problems: Yes Hx Cataracts: Yes 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 05-21-18 LEFT HIP WITH A 1X1 CM closed wound,SCABBED, - MUSCULOSKELETAL/RHEUMATOLOGICAL Hx Falls: No - GASTROINTESTINAL Hx Gastrointestinal Disorders: Yes (c dif squamous cell of abd/L kidney ca) - GENITOURINARY/GYNECOLOGICAL Hx Reproductive Disorders: Yes (benign breasts cysts) - PSYCHIATRIC Hx Psychophysiologic Disorder: Yes Hx Anxiety: Yes Hx Bipolar Disorder: Yes Hx Depression: Yes Hx Emotional Abuse: No Hx Panic Symptoms: Yes Hx Physical Abuse: No Hx Substance Use: No - SURGICAL HISTORY Hx Appendectomy: Yes (ovarian cyst and ap together) Other/Comment: b/l exc benign cluster of breast cysts 1972, lymph node bx, right chest wall vascular access, sigmoidectomy over 10 yrs ago, sx b/l carpal tunnel - ANESTHESIA Hx Anesthesia: Yes Hx Anesthesia Reactions: No Hx Malignant Hyperthermia: No Meds Home Medications: Home Medication List Medication Instructions Recorded Confirmed Type Polyethylene Glycol 3350 [Miralax] 17 g PO BID 30 Days ml 07/18/18 Rx RX: fentaNYL 25 mcg/hr [Duragesic 1 patch TD Q72H patch 07/18/18 Rx Patch 25 mcg/hr] Allergies/Adverse Reactions: Allergies Allergy/AdvReac Type Severity Reaction Status Date / Time tetracycline Allergy Severe ANAPHYLAXIS Verified 07/17/18 14:22 Physical Exam - Constitutional Appears: Well, Non-toxic, No Acute Distress - Head Exam Head Exam: ATRAUMATIC, NORMAL INSPECTION, NORMOCEPHALIC - Eye Exam Eye Exam: EOMI, Normal appearance, PERRL - ENT Exam ENT Exam: Mucous Membranes Moist, Normal Exam, Normal Oropharynx - Neck Exam Neck exam: Positive for: Full Rom, Normal Inspection. Negative for: Tenderness, Thyromegaly - Respiratory Exam Respiratory Exam: NORMAL BREATHING PATTERN. absent: Rales, Rhonchi, Wheezes - Cardiovascular Exam Cardiovascular Exam: RRR, +S1, +S2 - GI/Abdominal Exam GI & Abdominal Exam: Hyperactive Bowel Sounds, Soft. absent: Distended, Guarding, Tenderness - Extremities Exam Extremities exam: Positive for: full ROM, normal inspection. Negative for: pedal edema - Back Exam Back exam: NORMAL INSPECTION - Neurological Exam Neurological exam: Alert, CN II-XII Intact, Normal Gait, Oriented x3 - Psychiatric Exam Psychiatric exam: Normal Affect, Normal Mood - Skin Skin Exam: Normal Color, Warm Results - Vital Signs Recent Vital Signs: Last Vital Signs Temp 98.4 F 07/17/18 14:18 Pulse 98 H 07/17/18 21:23 Resp 18 07/17/18 22:09 BP 129/68 07/17/18 21:23 Pulse Ox 100 07/17/18 21:23 - Labs Result Diagrams: 07/17/18 14:45 07/17/18 14:45 Labs: Laboratory Results - last 24 hr 07/17/18 07/17/18 07/17/18 14:45 14:45 14:45 WBC 9.6 RBC 3.21 L Hgb 9.2 L Hct 29.4 L MCV 91.6 D MCH 28.7 MCHC 31.3 RDW 16.4 H Plt Count 336 MPV 9.6 Gran % 78.8 H Lymph % (Auto) 11.1 L Rapides % (Auto) 9.5 H Eos % (Auto) 0.4 L Baso % (Auto) 0.2 Gran # 7.57 H Lymph # (Auto) 1.1 L Rapides # (Auto) 0.9 H Eos # (Auto) 0.0 Baso # (Auto) 0.02 Sodium 134 Potassium 4.0 Chloride 99 Carbon Dioxide 27 Anion Gap 11 BUN 41 H Creatinine 1.0 Est GFR ( Amer) > 60 Est GFR (Non-Af Amer) 52 Random Glucose 139 H Calcium 9.3 Magnesium 2.0 Total Bilirubin 0.3 AST 28 ALT 27 Alkaline Phosphatase 72 Total Protein 6.6 Albumin 3.1 Globulin 3.5 Albumin/Globulin Ratio 0.9 L TSH 3rd Generation 1.62 Assessment & Plan - Assessment and Plan (Free Text) Assessment: 87 year old female with a PMH of 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 Constipation resolved w/ mag citrate and fleet enema. Plan: - lactulose x1 - cont Paxil, Paxil, and Remeron HS - cont Fentanyl TD q72hrs - cont Oxycodone prn - PT screening - HHD - further recs per Dr. Floyd Case was reviewed and discussed with attending, Dr. Everett Capone PGY2 <Oleg Floyd S - Last Filed: 07/18/18 18:03> Results - Vital Signs Recent Vital Signs: Last Vital Signs Temp 98.3 F 07/18/18 06:00 Pulse 100 H 07/18/18 06:00 Resp 18 07/18/18 06:00 BP 119/64 07/18/18 06:00 Pulse Ox 97 07/18/18 06:00 - Labs Result Diagrams: 07/17/18 14:45 07/17/18 14:45 Assessment & Plan - Assessment and Plan (Free Text) Assessment: Pt seen and examined. I have reviewed the note of the medical transcriptionist and agree with it. I have discussed the assessment and plan with the resident. I have reviewed the patient's labs and medications. Pt with Sq Cell Ca stage IV and is not getting treatment at this time. She is on narcotics and has severe constipation. She has depression and is on antidepressants. I spoke to the pt's daughter and updated her. She was given a fleet enema and MgCitrate and she has had multiple bowel movements. She will be discharged home.
--- NOTE | 2018-07-18 09:36 | RAD ---
Date of service: 07/17/2018 HISTORY: constipation COMPARISON: 05/24/2018. FINDINGS: BOWEL: There is large amount of stool in the colon and fecal impaction in the sigmoid colon and rectum. The bowel gas pattern is nonspecific. BONES: Multilevel degenerative changes. OTHER FINDINGS: None. IMPRESSION: Severe constipation with fecal impaction in the sigmoid colon and rectum. Nonobstructive nonspecific bowel gas pattern.
[2018-07-18 09:58] VITALS: BP 119/64; PULSE 100; TEMP 98.3; O2SAT 97
--- NOTE | 2018-07-19 21:36 | CP.PCM.DIS ---
<Adan Capone - Last Filed: 07/19/18 21:38> Provider - Provider Date of Admission: 07/17/18 18:47 Attending physician: Oleg Floyd MD Time Spent in preparation of Discharge (in minutes): 35 Diagnosis - Discharge Diagnosis (1) Constipation Status: Acute Hospital Course - Lab Results Lab Results: Most Recent Lab Values WBC 9.6 10^3/uL (4.5-11.0) 07/17/18 14:45 RBC 3.21 10^6/uL (3.5-6.1) L 07/17/18 14:45 Hgb 9.2 g/dL (12.0-16.0) L 07/17/18 14:45 Hct 29.4 % (36.0-48.0) L 07/17/18 14:45 MCV 91.6 fl (80.0-105.0) D 07/17/18 14:45 MCH 28.7 pg (25.0-35.0) 07/17/18 14:45 MCHC 31.3 g/dl (31.0-37.0) 07/17/18 14:45 RDW 16.4 % (11.5-14.5) H 07/17/18 14:45 Plt Count 336 10^3/uL (120.0-450.0) 07/17/18 14:45 MPV 9.6 fl (7.0-11.0) 07/17/18 14:45 Gran % 78.8 % (50.0-68.0) H 07/17/18 14:45 Lymph % (Auto) 11.1 % (22.0-35.0) L 07/17/18 14:45 [place] % (Auto) 9.5 % (1.0-6.0) H 07/17/18 14:45 Eos % (Auto) 0.4 % (1.5-5.0) L 07/17/18 14:45 Baso % (Auto) 0.2 % (0.0-3.0) 07/17/18 14:45 Gran # 7.57 (1.4-6.5) H 07/17/18 14:45 Lymph # (Auto) 1.1 (1.2-3.4) L 07/17/18 14:45 [place] # (Auto) 0.9 (0.1-0.6) H 07/17/18 14:45 Eos # (Auto) 0.0 (0.0-0.7) 07/17/18 14:45 Baso # (Auto) 0.02 K/mm3 (0.0-2.0) 07/17/18 14:45 Sodium 134 mmol/L (132-148) 07/17/18 14:45 Potassium 4.0 mmol/L (3.6-5.0) 07/17/18 14:45 Chloride 99 mmol/L (98-107) 07/17/18 14:45 Carbon Dioxide 27 mmol/L (21-33) 07/17/18 14:45 Anion Gap 11 (10-20) 07/17/18 14:45 BUN 41 mg/dL (7-21) H 07/17/18 14:45 Creatinine 1.0 mg/dl (0.7-1.2) 07/17/18 14:45 Est GFR ( Amer) > 60 07/17/18 14:45 Est GFR (Non-Af Amer) 52 07/17/18 14:45 Random Glucose 139 mg/dL (70-110) H 07/17/18 14:45 Calcium 9.3 mg/dL (8.4-10.5) 07/17/18 14:45 Magnesium 2.0 mg/dL (1.7-2.2) 07/17/18 14:45 Total Bilirubin 0.3 mg/dL (0.2-1.3) 07/17/18 14:45 AST 28 U/L (14-36) 07/17/18 14:45 ALT 27 U/L (7-56) 07/17/18 14:45 Alkaline Phosphatase 72 U/L (38-126) 07/17/18 14:45 Total Protein 6.6 g/dL (5.8-8.3) 07/17/18 14:45 Albumin 3.1 g/dL (3.0-4.8) 07/17/18 14:45 Globulin 3.5 gm/dL 07/17/18 14:45 Albumin/Globulin Ratio 0.9 (1.1-1.8) L 07/17/18 14:45 TSH 3rd Generation 1.62 mIU/mL (0.46-4.68) 07/17/18 14:45 - Hospital Course Hospital Course: 87 year old female with a PMH of 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 In ED, ABD XR showed severe constipation w/ fecal impaction in sigmoid colon and rectum that was nonobstructive in nature. EKG showed sinus tachycardia @ 118 bpm. In ED, patient received mag citrate and fleet enema. The patient had several BM's which provided relief and her abdomen on my evaluation was soft and patient in no acute distress. Patient finished 2 cycles of chemo for her cancer and has a follow-up appointment with Dr. Hernandez. Upon discharge, she is feeling much better and is educated on her follow-up and discharge plan. Discharge Exam - Head Exam Head Exam: ATRAUMATIC, NORMAL INSPECTION, NORMOCEPHALIC - Eye Exam Eye Exam: EOMI, Normal appearance Pupil Exam: NORMAL ACCOMODATION - ENT Exam ENT Exam: Mucous Membranes Moist, Normal Exam - Neck Exam Neck exam: Full Rom, Normal Inspection - Respiratory Exam Respiratory Exam: NORMAL BREATHING PATTERN. absent: Rales, Rhonchi, Wheezes, Respiratory Distress - Cardiovascular Exam Cardiovascular Exam: RRR, +S1, +S2. absent: Systolic Murmur - GI/Abdominal Exam GI & Abdominal Exam: Hyperactive Bowel Sounds, Soft, Unremarkable. absent: Distended, Firm, Guarding, Tenderness - Extremities Exam Extremities exam: full ROM, normal inspection, pedal pulses present - Back Exam Back exam: FULL ROM - Neurological Exam Neurological exam: Alert, CN II-XII Intact, Oriented x3 - Psychiatric Exam Psychiatric exam: Normal Affect, Normal Mood - Skin Skin Exam: Intact, Normal Color Discharge Plan - Discharge Medications Prescriptions: Polyethylene Glycol 3350 [Miralax] 17 g PO BID 30 Days ml - Follow Up Plan Condition: STABLE Disposition: HOME/ ROUTINE Instructions: Dangers of Secondhand Smoke, Constipation, Adult (DC), Pneumonia, Adult (DC), Preventing Falls, Influenza Virus Vaccine (Inactivated), Pneumococcal Polysaccharide Vaccine (23-Valent), Syncope (DC), Syncope (GEN) <Oleg Floyd - Last Filed: 07/20/18 10:50> Provider - Provider Date of Admission: 07/17/18 18:47 Attending physician: Oleg Floyd MD [facility] Course - Lab Results Lab Results: Most Recent Lab Values WBC 9.6 10^3/uL (4.5-11.0) 07/17/18 14:45 RBC 3.21 10^6/uL (3.5-6.1) L 07/17/18 14:45 Hgb 9.2 g/dL (12.0-16.0) L 07/17/18 14:45 Hct 29.4 % (36.0-48.0) L 07/17/18 14:45 MCV 91.6 fl (80.0-105.0) D 07/17/18 14:45 MCH 28.7 pg (25.0-35.0) 07/17/18 14:45 MCHC 31.3 g/dl (31.0-37.0) 07/17/18 14:45 RDW 16.4 % (11.5-14.5) H 07/17/18 14:45 Plt Count 336 10^3/uL (120.0-450.0) 07/17/18 14:45 MPV 9.6 fl (7.0-11.0) 07/17/18 14:45 Gran % 78.8 % (50.0-68.0) H 07/17/18 14:45 Lymph % (Auto) 11.1 % (22.0-35.0) L 07/17/18 14:45 [place] % (Auto) 9.5 % (1.0-6.0) H 07/17/18 14:45 Eos % (Auto) 0.4 % (1.5-5.0) L 07/17/18 14:45 Baso % (Auto) 0.2 % (0.0-3.0) 07/17/18 14:45 Gran # 7.57 (1.4-6.5) H 07/17/18 14:45 Lymph # (Auto) 1.1 (1.2-3.4) L 07/17/18 14:45 [place] # (Auto) 0.9 (0.1-0.6) H 07/17/18 14:45 Eos # (Auto) 0.0 (0.0-0.7) 07/17/18 14:45 Baso # (Auto) 0.02 K/mm3 (0.0-2.0) 07/17/18 14:45 Sodium 134 mmol/L (132-148) 07/17/18 14:45 Potassium 4.0 mmol/L (3.6-5.0) 07/17/18 14:45 Chloride 99 mmol/L (98-107) 07/17/18 14:45 Carbon Dioxide 27 mmol/L (21-33) 07/17/18 14:45 Anion Gap 11 (10-20) 07/17/18 14:45 BUN 41 mg/dL (7-21) H 07/17/18 14:45 Creatinine 1.0 mg/dl (0.7-1.2) 07/17/18 14:45 Est GFR ( Amer) > 60 07/17/18 14:45 Est GFR (Non-Af Amer) 52 07/17/18 14:45 Random Glucose 139 mg/dL (70-110) H 07/17/18 14:45 Calcium 9.3 mg/dL (8.4-10.5) 07/17/18 14:45 Magnesium 2.0 mg/dL (1.7-2.2) 07/17/18 14:45 Total Bilirubin 0.3 mg/dL (0.2-1.3) 07/17/18 14:45 AST 28 U/L (14-36) 07/17/18 14:45 ALT 27 U/L (7-56) 07/17/18 14:45 Alkaline Phosphatase 72 U/L (38-126) 07/17/18 14:45 Total Protein 6.6 g/dL (5.8-8.3) 07/17/18 14:45 Albumin 3.1 g/dL (3.0-4.8) 07/17/18 14:45 Globulin 3.5 gm/dL 07/17/18 14:45 Albumin/Globulin Ratio 0.9 (1.1-1.8) L 07/17/18 14:45 TSH 3rd Generation 1.62 mIU/mL (0.46-4.68) 07/17/18 14:45 - Hospital Course Hospital Course: Pt seen and examined by me. I reviewed the note of the director medical writing and agree with it. I reviewed the labs and medications. She has severe constipation due to being on narcotics. She had multiple bowel movements after she was given laxatives and an enema. I spoke to the pt's daughter and updated her. The pt has a squamous cell ca of unknown primary. She will be discharged and f/u with me in the office and with Dr Hernandez.
== END 2018-07-18 16:06 | disposition home or self-care (01) ==
LOC: ED 14:32 → ERH 18:47 → 5RSO 22:11
PROVIDERS: ADMIT Internal Medicine Nephrology; ATTEND Internal Medicine Nephrology
DX: K59.03 Drug induced constipation (principal); T40.605A Adverse effect of unspecified narcotics, initial encounter; R64 Cachexia; Z68.1 Body mass index [BMI] 19.9 or less, adult; H91.8X1 Other specified hearing loss, right ear; F31.9 Bipolar disorder, unspecified; E78.00 Pure hypercholesterolemia, unspecified; Z87.891 Personal history of nicotine dependence; Z85.528 Personal history of other malignant neoplasm of kidney
CPT/HCPCS: 74018; 80053; 83735; 84443; 85025; 93005; 99284; G0378; J7030

== ENCOUNTER 2018-10-01 08:19 | Outpatient (CLI) | payer MEDICARE, OTHER | END 2018-10-01 08:20 | disposition home or self-care (01) | LOC: RAD 08:19 ==

== ENCOUNTER 2018-10-10 10:49 | Inpatient (IN) | payer MEDICARE, OTHER ==
[2018-10-10 10:49] VITALS: BMI 16.2
--- NOTE | 2018-10-10 11:16 | ED PDOC ---
Arrival/HPI - General Historian: Patient - History of Present Illness Narrative History of Present Illness (Text): 10/10/18 11:06 88 y/o female, pmh including squamous cell carcinoma/c.diff/pneumonia, allergic to tetracycline, biba c/o cough/fatigue/not eating and been falling x 1 week. Pt. is being taking care of by her daughter. Daughter stated that the patient has not been eating or drinking well, been coughing, no chest pain or shortness of breath, stated that she has been falling when getting up on the bed, started zithromax about 4 days ago for her cough but not much improved, here at the ER for evaluation, no recent traveling, no other medical or psychological co mplaints. PMD and Oncologist: Dr. 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) - Renal Hx Renal Disorder: Yes (left kidney ca) Hx Renal Cancer: Yes (dx 11/2017) Other/Comment: 11/26/17 cystoscope, left retrograde pyelogram,unsucessful attempt to insert stent, bladder biopsies: dx left hydronephrosis, squamous cell ca - Endocrine/Metabolic Hx Endocrine Disorders: No - Hematological/Oncological Hx Blood Disorders: Yes Hx Cancer: Yes (small tumor found in left kidney) Hx Chemotherapy: Yes (every other week started 10wks ago) Other/Comment: recently dx 11/2017 - Integumentary Hx Dermatological Disorder: Yes Other/Comment: multiple moles to back, spider veins ble, no toenails to both great toes, hammertoes 2 3 4 5 both feet, dry skin rle. 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) - Genitourinary/Gynecological Hx Reproductive Disorders: Yes (benign breasts cysts) - Psychiatric Hx Psychophysiologic Disorder: Yes Hx Anxiety: Yes Hx Bipolar Disorder: Yes Hx Depression: Yes Hx Emotional Abuse: No Hx Panic Disorder: Yes Hx Physical Abuse: No Hx Substance Use: No - Past Surgical History Past Surgical History: Non-Contributing - Surgical History Hx Appendectomy: Yes (ovarian cyst and ap together) Other/Comment: b/l exc benign cluster of breast cysts 1972, lymph node bx, right chest wall vascular access, sigmoidectomy over 10 yrs ago, sx b/l carpal tunnel - Anesthesia Hx Anesthesia: Yes Hx Anesthesia Reactions: No Hx Malignant Hyperthermia: No - Suicidal Assessment Feels Threatened In Home Enviroment: No Family/Social History - Physician Review Nursing Documentation Reviewed: Yes Family/Social History: Unknown Family HX Smoking Status: Former Smoker Hx Alcohol Use: No Hx Substance Use: No Hx Substance Use Treatment: No Allergies/Home Meds Allergies/Adverse Reactions: Allergies tetracycline Allergy (Severe, Verified 10/10/18 11:19) ANAPHYLAXIS Home Medications: Home Meds Medication Instructions Recorded Confirmed Clonazepam [Klonopin] 1 mg PO QID 12/24/17 10/10/18 Mirtazapine [Remeron] 30 mg PO HS 12/24/17 10/10/18 PARoxetine [Paxil] 30 mg PO HS 12/24/17 10/10/18 Review of Systems - Review of Systems Constitutional: Fatigue. absent: Fevers Eyes: absent: Vision Changes ENT: absent: Hearing Changes Respiratory: Cough. absent: SOB Cardiovascular: absent: Chest Pain Gastrointestinal: absent: Abdominal Pain, Nausea, Vomiting Musculoskeletal: absent: Arthralgias, Back Pain Skin: absent: Rash, Pruritis Neurological: absent: Headache Psychiatric: absent: Anxiety, Depression, Suicidal Ideation Physical Exam Vital Signs Reviewed: Yes Temperature: Afebrile Blood Pressure: Normal Pulse: Tachycardic Respiratory Rate: Normal Appearance: Positive for: Ill-Appearing Pain Distress: None Mental Status: Positive for: Alert and Oriented X 3 - Systems Exam Head: Present: Atraumatic, Normocephalic. No: Tenderness, Contusion, Swelling, Ecchymosis, Abrasion, Laceration, Other Pupils: Present: PERRL Extroacular Muscles: Present: EOMI Conjunctiva: Present: Normal Ears: Present: NORMAL TM, Normal Canal Mouth: Present: Moist Mucous Membranes Pharnyx: No: ERYTHEMA, EXUDATE, TONSILS ENLARGED Nose (External): Present: Atraumatic. No: Abrasion, Contusion, Laceration Nose (Internal): Present: Normal Inspection, No Active Bleeding. No: Rhinorrhea, Septal Hematoma, Epistaxis Neck: Present: Normal Range of Motion Respiratory/Chest: Present: Decreased Breath Sounds, Rales, Rhonchi. No: Respiratory Distress, Accessory Muscle Use, Retracting, Tachypneic Cardiovascular: Present: Regular Rate and Rhythm, Normal S1, S2. No: Murmurs Abdomen: No: Tenderness, Distention, Peritoneal Signs, Rebound, Guarding Back: Present: Normal Inspection. No: CVA Tenderness, Midline Tenderness, Paraspinal Tenderness, Pain with Leg Raise, Decubitus Ulcer Upper Extremity: Present: Normal Inspection. No: Cyanosis, Edema Lower Extremity: Present: Normal Inspection. No: Edema Neurological: Present: GCS=15, CN II-XII Intact, Speech Normal, Motor Func Grossly Intact, Gait Normal, Memory Normal Skin: Present: Warm, Dry, Normal Color. No: Rashes Psychiatric: Present: Alert, Oriented x 3, Normal Insight, Normal Concentration Medical Decision Making ED Course and Treatment: 10/10/18 11:17 differential including but not limited to : sepsis vs. dehydration vs. pneumonia vs. UTI -labs -cxr -IVF -Observe and reassess 10/10/18 12:11 -wbc 22, blood cultures and vbg added. 10/10/18 12:40 -EKG: ST @ 114 BPM with PVC, no ST elevation or depression, no T wave inversion -Chest xray ER wet read show bilateral consolidations with no obvious cardiomegally -Rapid flu is negative -Labs are non-significant except wbc 22.1 (blood cultures and IV antibiotics ordered), Hgb 8.6 from 9.2 (chronic anemia), BUN 48 from 41 and creatine 1.4 from 1.0 (IV hydration ordered and will need trending). -BNP 1830, no pedal edema or lower leg swelling, non-specific. -CPK 23, low -Lactic acid 2.4, code sepsis activated. -UA ordered but no sample -IV rocephine and azithromycin ordered. -She will need admission, discussed with the patient and the daughter. -Paging Dr. Hernandez for admission. 10/10/18 12:58 -Pt. anxious, request anxiolytic to sleep, ativan 0.5mg -I spoke to Dr. Hernandez, discussed about the case/labs/bnp and agreed to admit to her service with DR. Álvarez on routine consult which I ordered. - RAD Interpretation Radiology Orders: Date of service: 10/10/2018 HISTORY: fatigue/cough COMPARISON: Portable chest 05/21/2018. TECHNIQUE: Chest PA and lateral FINDINGS: MediPort unchanged in position. LUNGS: Dense pneumonia right middle lobe scattered infiltrate affects the mid to inferior left lung zone at the lingula or left lower lobe. PLEURA: No significant pleural effusion identified. No pneumothorax apparent. CARDIOVASCULAR: No aortic atherosclerotic calcification present. Probable technical magnification generates prominent cardiac silhouette. Patient is seated during the exposure and this is a frontal projection. No pulmonary vascular congestion. OSSEOUS STRUCTURES: No significant abnormalities. VISUALIZED UPPER ABDOMEN: Normal. OTHER FINDINGS: None. IMPRESSION: Interval dense pneumonia right middle lobe and scattered at the low lingula or left lower lobe as well. No pleural effusion or pneumothorax. Cardiomegaly not favored but difficult to completely exclude. See discussion above. Setter Up: Radiologist - EKG Interpretation EKG Interpretation (Text): 10/10/18 12:12 -EKG: ST @ 114 BPM with PVC, no ST elevation or depression, no T wave inversion Interpreted by ED Physician: Yes Type: 12 lead EKG - PA / GRAPHIC MANAGER / Resident Statement MD/DO has reviewed & agrees with the documentation as recorded. Disposition/Present on Arrival - Present on Arrival Any Indicators Present on Arrival: No History of DVT/PE: No History of Uncontrolled Diabetes: No Urinary Catheter: No History of Decub. Ulcer: No History Surgical Site Infection Following: None - Disposition Have Diagnosis and Disposition been Completed?: Yes Diagnosis: Dehydration, Pneumonia, Sepsis Disposition: HOSPITALIZED Disposition Time: 12:22 Patient Plan: Admission, Telemetry Patient Problems: Current Active Problems Problem Status Onset Dehydration Acute Pneumonia Acute Sepsis Acute Condition: GUARDED
[2018-10-10] MEDS: Sodium Chloride 0.9% 1,000 ML IV SCH ×2 (11:47→21:12)
[2018-10-10 11:55] LABS: BASO # 0.02 K/mm3 (0.0-2.0); BASO % 0.1 % (0.0-3.0); EOS % 0.2 % (1.5-5.0); HEMOGLOBIN 8.6 g/dL (12.0-16.0); LYMPH % 4.7 % (22.0-35.0); MEAN CELL VOLUME 88.6 fl (80.0-105.0); MEAN CORPUSCULAR HEMOGLOBIN 27.2 pg (25.0-35.0); MEAN CORPUSCULAR HGB CONC 30.7 g/dl (31.0-37.0); MONO % 4.6 % (1.0-6.0); PLATELET COUNT 599 10^3/uL (120.0-450.0); RBC 3.16 10^6/uL (3.5-6.1); RED CELL DISTRIBUTION WIDTH 17.5 % (11.5-14.5); WHITE BLOOD COUNT 22.1 10^3/uL (4.5-11.0)
[2018-10-10 12:06] LABS: ALB/GLOB RATIO 0.8 (1.1-1.8); CALCIUM 9.2 mg/dL (8.4-10.5)
[2018-10-10] MEDS ORDERED: Azithromycin 500MG/NS 250ml 500 MG/250 ML BAG IVPB STA (12:20)
[2018-10-10] MEDS ORDERED: cefTRIAXone 1 gm 1 GM/100 ML BAG IVPB STA (12:20)
[2018-10-10 12:26] LABS: BAND 3 % (0-2); LYMPHOCYTE 4 % (22.0-35.0); MONOCYTE 4 % (1.0-6.0); NEUTROPHIL 89 % (50.0-70.0)
[2018-10-10 12:34] LABS: VENOUS BLOOD GAS BASE EXCESS 4.4 mmol/L (0.0-2.0); VENOUS BLOOD GAS PO2 20 mm/Hg (30-55); VENOUS BLOOD PH 7.44 (7.32-7.43)
[2018-10-10] MEDS ORDERED: Vancomycin 1gm in NS 250ml 1 GM/250 ML BAG IVPB STA ×2 (15:21→19:25)
--- NOTE | 2018-10-10 15:36 | RAD ---
Date of service: 10/10/2018 HISTORY: fatigue/cough COMPARISON: Portable chest 05/21/2018. TECHNIQUE: Chest PA and lateral FINDINGS: MediPort unchanged in position. LUNGS: Dense pneumonia right middle lobe scattered infiltrate affects the mid to inferior left lung zone at the lingula or left lower lobe. PLEURA: No significant pleural effusion identified. No pneumothorax apparent. CARDIOVASCULAR: No aortic atherosclerotic calcification present. Probable technical magnification generates prominent cardiac silhouette. Patient is seated during the exposure and this is a frontal projection. No pulmonary vascular congestion. OSSEOUS STRUCTURES: No significant abnormalities. VISUALIZED UPPER ABDOMEN: Normal. OTHER FINDINGS: None. IMPRESSION: Interval dense pneumonia right middle lobe and scattered at the low lingula or left lower lobe as well. No pleural effusion or pneumothorax. Cardiomegaly not favored but difficult to completely exclude. See discussion above.
[2018-10-10 16:17] LABS: VENOUS BLOOD GAS BASE EXCESS 2.4 mmol/L (0.0-2.0); VENOUS BLOOD GAS PO2 60 mm/Hg (30-55)
--- NOTE | 2018-10-10 16:25 | CARD ---
APPROVED REPORT Date of service: 10/10/2018 EKG Measurement Heart [id number] <Conclusion> Poor data quality, interpretation may be adversely affected Sinus tachycardia with occasional premature ventricular complexes Possible Anterior infarct, age undetermined Abnormal ECG
--- NOTE | 2018-10-10 17:02 | PCM.SEPTIC ---
<Lorenzo Mcnally - Last Filed: 10/11/18 15:22> Sepsis Progress Note - Reassessment Type Date of Evaluation: 10/10/18 Reassessment Type: Non-invasive reassessment - Non Invasive Reassessment Were the most recent vital sign reviewed: Yes Vital Sign (Latest): Temp Pulse Resp BP Pulse Ox 98.5 F 103 H 18 108/68 100 10/10/18 12:47 10/10/18 13:36 10/10/18 13:36 10/10/18 13:36 10/10/18 13:36 Cardiovascular: Yes: Tachycardia. No: Edema, Gallop, Murmur, Friction Rub Respiratory: Yes: Decreased Breath Sounds, Rhonchi. No: Accessory Muscle Use, Stridor, Wheezing, Respiratory Distress Capillary Refill: Normal (Less than 2 sec) Skin: Warm, Dry <Oleg Floyd - Last Filed: 10/11/18 19:21> Sepsis Progress Note - Non Invasive Reassessment Vital Sign (Latest): Temp Pulse Resp BP Pulse Ox 99.6 F 134 H 20 158/74 H 92 L 10/11/18 18:00 10/11/18 18:00 10/11/18 18:00 10/11/18 18:00 10/11/18 05:55
[2018-10-10] MEDS: Cefepime IV 2 gm in NS 2 GM/100 ML BAG IVPB SCH (21:12)
[2018-10-10] MEDS ORDERED: Pneumococcal 23-Valent Vaccine IM ONE (22:02)
[2018-10-10] MEDS ORDERED: Influenza Vaccine 60 mcg/0.5 mL SYR (4YR UP) IM ONE (22:02)
[2018-10-10] MEDS ORDERED: oxyCODONE 5 mg Immediate Release Tab PO PRN (22:56)
[2018-10-10] MEDS ORDERED: DiphenhydrAMINE 50 mg/ml Inj IVP ONE (23:47)
[2018-10-11] MEDS ORDERED: Vancomycin 1gm in NS 250ml 1 GM/250 ML BAG IVPB STA (06:37)
[2018-10-11] MEDS: Cefepime IV 2 gm in NS 2 GM/100 ML BAG IVPB SCH (10:30)
[2018-10-11] MEDS: Azithromycin 500MG/NS 250ml 500 MG/250 ML BAG IVPB SCH (13:42)
--- NOTE | 2018-10-11 14:08 | CP.PCM.CON ---
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 Diff colitis and OA who presents to the hospital after increased lethargy at home over the past 4 days. Patient is accompanied by her daughter at bedside who provides history. Patient has not been acting like herself and has also been fatigued. Patient was given a Z-pack by her primary care doctor 3 days ago. Patient's symptoms did not improve so they presented to the ED. Denies chest pain, nausea, vomiting, diarrhea, fever, chills, numbness, tingling, dysuria. PMH: as above PSH: right-sided chest port, appendectomy Medication: Reviewed, as per MAR Allergies: Tetracycline Social Hx: Former smoker, denies alcohol or illicit drug use Family Hx: Colon Ca Review of Systems - Review of Systems Review of Systems: 12 point ROS as per HPI, otherwise negative Past Patient History - Infectious Disease Hx of Infectious Diseases: C.diff - Tetanus Immunizations Tetanus Immunization: Unknown - Past Medical History & Family History Past Medical History?: Yes - Past Social History Smoking Status: Former Smoker - CARDIAC Hx Cardiac Disorders: Yes Hx Hypercholesterolemia: Yes Hx Hypertension: Yes Other/Comment: RT subclavian port spider veins ble - PULMONARY Hx Respiratory Disorders: Yes (SMOKED CIGARETTES BEFORE QUIT PK EVERY OTHER DAY) Hx Pneumonia: Yes Other/Comment: quit smoking over 25 yrs ago, sirs resolved - NEUROLOGICAL Hx Neurological Disorder: Yes Hx Dizziness: Yes - HEENT Hx HEENT Problems: Yes Hx Cataracts: Yes (b/l sx) 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) - RENAL Hx Chronic Kidney Disease: Yes (left kidney ca) Hx Renal (Kidney) Cancer: Yes (dx 11/2017) Other/Comment: 11/26/17 cystoscope, left retrograde pyelogram,unsucessful attempt to insert stent, bladder biopsies: dx left hydronephrosis, squamous cell ca - ENDOCRINE/METABOLIC Hx Endocrine Disorders: No - HEMATOLOGICAL/ONCOLOGICAL Hx Blood Disorders: Yes (sepsis) Hx Anemia: Yes Hx Cancer: Yes (small tumor found in left kidney) Hx Chemotherapy: Yes (every other week started 10wks ago) Other/Comment: recently dx 11/2017 - INTEGUMENTARY Hx Dermatological Problems: Yes (poor skin turgor) Other/Comment: multiple moles to back, spider veins ble, no toenails to both great toes, hammertoes 2 3 4 5 both feet, dry skin rle, left hip stage 2 open wound wound bed red/brown dry covered with optifoam 1.5cm x 1.5cm, red buttocks, ultiple b/l arm skin discolorations "from bloodwork" stated pt, multiple red scabs from fall to underside of right forearm, left ear red wound, right ear slight redness - MUSCULOSKELETAL/RHEUMATOLOGICAL Hx Musculoskeletal Disorders: Yes Hx Arthritis: Yes Hx Back Pain: Yes Hx Falls: Yes (frequent recent multiple) Hx Fractures: Yes (L wrist) Hx Osteoarthritis: Yes Hx Spinal Stenosis: Yes Hx Unsteady Gait: Yes (walker) Other/Comment: torn ligaments and arthritis left ankle hammertoes 2 3 4 5 both feet, bunyons both feet - GASTROINTESTINAL Hx Gastrointestinal Disorders: Yes (c dif squamous cell of abd/L kidney ca) Hx Diverticulitis: Yes Hx Gastroesophageal Reflux: Yes Other/Comment: irritable bowel - GENITOURINARY/GYNECOLOGICAL Hx Genitourinary Disorders: Yes Hx Incontinence: Yes Hx Urinary Tract Infection: Yes Other/Comment: excision benign cluster of breast cyst 1972, lymph node bx - PSYCHIATRIC Hx Psychophysiologic Disorder: Yes Hx Anxiety: Yes Hx Bipolar Disorder: Yes Hx Depression: Yes Hx Emotional Abuse: No Hx Panic Symptoms: Yes Hx Physical Abuse: No Hx Substance Use: No Other/Comment: community resource use - SURGICAL HISTORY Hx Appendectomy: Yes (ovarian cyst and ap together) Other/Comment: b/l exc benign cluster of breast cysts 1973, lymph node bx, right chest wall vascular access, sigmoidectomy over 10 yrs ago, sx b/l carpal tunnel, rcw pac, sigmoidectomy - ANESTHESIA Hx Anesthesia: Yes Hx Anesthesia Reactions: No Hx Malignant Hyperthermia: No Meds Allergies/Adverse Reactions: Allergies Allergy/AdvReac Type Severity Reaction Status Date / Time tetracycline Allergy Severe ANAPHYLAXIS Verified 10/10/18 11:19 - Medications Medications: Current Medications Clonazepam (Klonopin) 1 mg PO QID [facility]; Protocol Last Admin: 10/11/18 10:30 Dose: 1 mg Fentanyl (Duragesic) 1 patch TD Q72H [facility] Last Admin: 10/11/18 00:06 Dose: 1 patch Sodium Chloride (Sodium Chloride 0.9%) 1,000 mls @ 100 mls/hr IV .Q10H [facility] Last Admin: 10/10/18 21:12 Dose: 100 mls/hr Azithromycin (Zithromax 500mg In Ns) 500 mg in 250 mls @ 167 mls/hr IVPB DAILY [facility]; Protocol Last Admin: 10/11/18 13:42 Dose: 167 mls/hr Cefepime HCl (Maxipime 2gm) 2 gm in 100 mls @ 100 mls/hr IVPB DAILY [facility]; Protocol Stop: 10/15/18 22:01 Metronidazole (Flagyl) 250 mg PO Q8H [facility]; Protocol Last Admin: 10/11/18 07:05 Dose: 250 mg Mirtazapine (Remeron) 30 mg PO HS [facility] Last Admin: 10/10/18 21:12 Dose: 30 mg Oxycodone HCl (Oxycodone Immediate Release Tab) 5 mg PO Q6H PRN PRN Reason: Pain, moderate (4-7) Paroxetine HCl (Paxil) 30 mg PO [facility] Last Admin: 10/10/18 21:12 Dose: 30 mg Physical Exam - Constitutional Appears: Non-toxic, No Acute Distress - Head Exam Head Exam: ATRAUMATIC, NORMAL INSPECTION, NORMOCEPHALIC - Respiratory Exam Respiratory Exam: Decreased Breath Sounds, NORMAL BREATHING PATTERN. absent: Rales, Rhonchi, Wheezes - Cardiovascular Exam Cardiovascular Exam: RRR, +S1, +S2 - GI/Abdominal Exam GI & Abdominal Exam: Normal Bowel Sounds, Soft. absent: Tenderness - Extremities Exam Extremities exam: Positive for: normal inspection. Negative for: pedal edema - Neurological Exam Neurological exam: Alert Additional comments: Oriented to person and place - Psychiatric Exam Psychiatric exam: Normal Affect, Normal Mood - Skin Skin Exam: Intact, Normal Color, Warm Results - Vital Signs Recent Vital Signs: Last Vital Signs Temp 98.7 F 10/11/18 12:00 Pulse 111 H 10/11/18 12:00 Resp 19 10/11/18 12:00 BP 121/67 10/11/18 12:00 Pulse Ox 92 L 10/11/18 05:55 - Labs Result Diagrams: 10/10/18 11:33 10/10/18 11:33 Labs: Laboratory Results - last 24 hr 10/10/18 10/10/18 10/10/18 11:45 16:00 16:00 pO2 60 H VBG pH 7.50 H VBG pCO2 32.0 L VBG HCO3 25.0 VBG Total CO2 26.0 VBG O2 Sat (Calc) 96.0 H VBG Base Excess 2.4 H VBG Potassium 4.6 Sodium 138.0 Chloride 105.0 Glucose 84 Lactate 1.6 FiO2 21.0 POC Glucose (mg/dL) 179 H Procalcitonin 2.66 H Venous Blood Potassium 4.6 Assessment & Plan - Assessment and Plan (Free Text) Plan: Multilobar pneumonia LENARD Hx of C.diff colitis Hx of OA Hx of Stage IV left retroperitoneal cancer with unknown primary Hx of Bipolar disorder Plan Chest x-ray reviewed Will start patient Vancomycin, Cefepime, and Azithromycin Patient also started on Flagyl as per primary team MRSA nasal screen pending Procal pending Legionella pending Continue to monitor closely Charlene PGY-3 <Petr Burgos - Last Filed: 10/11/18 16:48> Meds - Medications Medications: Current Medications Clonazepam (Klonopin) 1 mg PO QID [facility]; Protocol Last Admin: 10/11/18 15:08 Dose: Not Given Fentanyl (Duragesic) 1 patch TD Q72H [facility] Last Admin: 10/11/18 00:06 Dose: 1 patch Sodium Chloride (Sodium Chloride 0.9%) 1,000 mls @ 100 mls/hr IV .Q10H [facility] Last Admin: 10/10/18 21:12 Dose: 100 mls/hr Azithromycin (Zithromax 500mg In Ns) 500 mg in 250 mls @ 167 mls/hr IVPB DAILY [facility]; Protocol Last Admin: 10/11/18 13:42 Dose: 167 mls/hr Cefepime HCl (Maxipime 2gm) 2 gm in 100 mls @ 100 mls/hr IVPB DAILY [facility]; Protocol Stop: 10/15/18 22:01 Metronidazole (Flagyl) 250 mg PO Q8H [facility]; Protocol Last Admin: 10/11/18 15:07 Dose: 250 mg Mirtazapine (Remeron) 30 mg PO HS [facility] Last Admin: 10/10/18 21:12 Dose: 30 mg Oxycodone HCl (Oxycodone Immediate Release Tab) 5 mg PO Q6H PRN PRN Reason: Pain, moderate (4-7) Paroxetine HCl (Paxil) 30 mg PO HS [facility] Last Admin: 10/10/18 21:12 Dose: 30 mg Results - Vital Signs Recent Vital Signs: Last Vital Signs Temp 98.7 F 10/11/18 12:00 Pulse 115 H 10/11/18 14:00 Resp 19 10/11/18 12:00 BP 121/67 10/11/18 12:00 Pulse Ox 92 L 10/11/18 05:55 - Labs Result Diagrams: 10/11/18 14:00 10/11/18 14:00 Labs: Laboratory Results - last 24 hr 10/10/18 10/10/18 10/11/18 11:45 16:00 14:00 WBC 20.3 H RBC 2.78 L Hgb 7.4 L Hct 24.4 L MCV 87.8 MCH 26.6 MCHC 30.3 L RDW 17.3 H Plt Count 529 H MPV 8.5 Sodium Potassium Chloride Carbon Dioxide Anion Gap BUN Creatinine Est GFR ( Amer) Est GFR (Non-Af Amer) POC Glucose (mg/dL) 179 H Random Glucose Calcium Total Bilirubin AST ALT Alkaline Phosphatase Total Protein Albumin Globulin Albumin/Globulin Ratio Procalcitonin 2.66 H 10/11/18 14:00 WBC RBC Hgb Hct MCV MCH MCHC RDW Plt Count MPV Sodium 136 Potassium 4.4 Chloride 107 Carbon Dioxide 26 Anion Gap 8 L BUN 29 H Creatinine 1.0 Est GFR ( Amer) > 60 Est GFR (Non-Af Amer) 52 POC Glucose (mg/dL) Random Glucose 137 H Calcium 8.6 Total Bilirubin 0.2 AST 27 ALT 10 Alkaline Phosphatase 111 Total Protein 6.1 Albumin 2.5 L Globulin 3.5 Albumin/Globulin Ratio 0.7 L Procalcitonin Assessment & Plan - Assessment and Plan (Free Text) Plan: Infectious diseases Attending Physician Attestation Patient seen and examined, discussed with special forces medical sergeant. I have reviewed the patient's history of present illness, past medical, social, personal and family histories, pertinent physical exam findings, course so far in this hospital admission, pertinent laboratory and imaging results. I agree with the above findings, assessment and plan. In addition, started a dose of IV Vancomycin, cefepime and Zithromax for multilobar pneumonia (HCAP). Follow up cultures, procalcitonin, urine Legionella Ag.
[2018-10-11 14:18] LABS: HEMOGLOBIN 7.4 g/dL (12.0-16.0); MEAN CELL VOLUME 87.8 fl (80.0-105.0); MEAN CORPUSCULAR HEMOGLOBIN 26.6 pg (25.0-35.0); MEAN CORPUSCULAR HGB CONC 30.3 g/dl (31.0-37.0); MEAN PLATELET VOLUME 8.5 fl (7.0-11.0); RBC 2.78 10^6/uL (3.5-6.1); RED CELL DISTRIBUTION WIDTH 17.3 % (11.5-14.5); WHITE BLOOD COUNT 20.3 10^3/uL (4.5-11.0)
[2018-10-11 14:30] LABS: ALB/GLOB RATIO 0.7 (1.1-1.8); ALBUMIN 2.5 g/dL (3.0-4.8); ALT/SGPT 10 U/L (7-56); AST/SGOT 27 U/L (14-36); BLOOD UREA NITROGEN 29 mg/dL (7-21); CALCIUM 8.6 mg/dL (8.4-10.5); GFR NON-AFRICAN AMERICAN 52
[2018-10-11] MEDS: Sodium Chloride 0.9% 1,000 ML IV SCH (22:21)
[2018-10-12 06:25] LABS: HEMOGLOBIN 7.8 g/dL (12.0-16.0); MEAN CELL VOLUME 88.4 fl (80.0-105.0); MEAN CORPUSCULAR HEMOGLOBIN 26.7 pg (25.0-35.0); MEAN CORPUSCULAR HGB CONC 30.2 g/dl (31.0-37.0); MEAN PLATELET VOLUME 8.6 fl (7.0-11.0); RBC 2.92 10^6/uL (3.5-6.1); RED CELL DISTRIBUTION WIDTH 17.5 % (11.5-14.5); WHITE BLOOD COUNT 17.9 10^3/uL (4.5-11.0)
[2018-10-12 07:38] LABS: ALB/GLOB RATIO 0.7 (1.1-1.8); ALBUMIN 2.3 g/dL (3.0-4.8); CALCIUM 8.7 mg/dL (8.4-10.5)
[2018-10-12] MEDS ORDERED: Cefepime IV 2 gm in NS 2 GM/100 ML BAG IVPB SCH (10:00)
[2018-10-12] MEDS ORDERED: Vancomycin 1gm in NS 250ml 1 GM/250 ML BAG IVPB STA (10:11)
[2018-10-12] MEDS: Sodium Chloride 0.9% 1,000 ML IV SCH ×2 (11:23→15:27)
--- NOTE | 2018-10-12 14:11 | PN ---
DATE: 10/12/2018 SUBJECTIVE: The patient is seen and examined, lying in bed, sleepy, but arousable. She is on one to one; according to nurse, she tries to get out of bed. She is confused. She is disoriented. Her oral intake is very poor. So, the patient came to the emergency room on 10/10/2018 because of increasing lethargy. She was found to be septic. PAST MEDICAL HISTORY: Significant for: 1. Stage IV retroperitoneal squamous cell carcinoma of unknown primary. 2. Recurrent admission for C. diff colitis. 3. Dementia. PHYSICAL EXAMINATION: VITAL SIGNS: The patient is afebrile. Pulse 106, respirations 16, blood pressure 137/64. LUNGS: Bilateral fair airflow. No rhonchi or crackles. HEART: S1 and S2 audible, tachycardiac. ABDOMEN: Soft, nontender. No rebound. No guarding noted. NEUROLOGIC: She is confused and disoriented. EXTREMITIES: Bilateral legs, no edema. SKIN: She has ulcer on her left ear. LABORATORY DATA: WBC 17.9, hemoglobin 7.8, hematocrit 25.8, and platelets 503. Chemistries: Sodium 139, potassium 4.7, chloride 109, CO2 of 27, BUN 24, creatinine 1.1. Blood sugar of 98. Procalcitonin 2.66. Flu test is negative. Her blood cultures are negative. EKG shows sinus tachycardia with occasional PVCs. X-ray of chest, dense pneumonia right middle lobe and scattered at the lower lingular or left lower lobe. No pleural effusion or pneumothorax note. ASSESSMENT: 1. Sepsis. 2. Multilobar pneumonia. 3. Leukocytosis. 4. Altered mental status. 5. Stage IV retroperitoneal malignancy. 6. History Clostridium difficile colitis. 7. Poor oral intake. PLAN: Currently, the patient is on Duragesic patch. She is on Klonopin, she is getting cefepime. She is on analgesic. She is on Paxil. She is on IV fluid. She is on Zithromax. I will add Protonix. Continue antibiotic. Follow up her electrolyte. She received one blood transfusion early this morning. We will follow up her CBC and CMP. Carla Magana MD
[2018-10-12] MEDS: Azithromycin 500MG/NS 250ml 500 MG/250 ML BAG IVPB SCH (15:27)
--- NOTE | 2018-10-12 15:58 | CP.PCM.PN ---
Subjective - Date & Time of Evaluation Date of Evaluation: 10/12/18 Time of Evaluation: 11:45 - Subjective Subjective: Patient is not coughing, no fevers, not in distress. Objective - Vital Signs/Intake and Output Vital Signs (last 24 hours): Temp Pulse Resp BP Pulse Ox 98.6 F 106 H 16 137/64 91 L 10/12/18 09:07 10/12/18 09:07 10/12/18 09:07 10/12/18 09:07 10/12/18 06:00 Intake and Output: 10/12/18 10/12/18 06:59 18:59 Intake Total 0 325 Balance 0 325 - Medications Medications: Current Medications Acetaminophen (Tylenol 650 Mg Supp) 650 mg RC Q6 PRN PRN Reason: Fever >100.4 F Last Admin: 10/11/18 22:21 Dose: 650 mg Clonazepam (Klonopin) 1 mg PO QID [facility]; Protocol Last Admin: 10/11/18 22:30 Dose: Not Given Fentanyl (Duragesic) 1 patch TD Q72H [facility] Last Admin: 10/11/18 00:06 Dose: 1 patch Sodium Chloride (Sodium Chloride 0.9%) 1,000 mls @ 100 mls/hr IV .Q10H [facility] Last Admin: 10/11/18 22:21 Dose: 100 mls/hr Azithromycin (Zithromax 500mg In Ns) 500 mg in 250 mls @ 167 mls/hr IVPB DAILY [facility]; Protocol Last Admin: 10/11/18 13:42 Dose: 167 mls/hr Cefepime HCl (Maxipime 2gm) 2 gm in 100 mls @ 100 mls/hr IVPB Q12 [facility]; Protocol Stop: 10/17/18 22:01 Vancomycin HCl (Vancomycin 1gm) 1 gm in 250 mls @ 167 mls/hr IVPB STAT [facility]; Protocol Stop: 10/12/18 11:40 Mirtazapine (Remeron) 30 mg PO HS [facility] Last Admin: 10/11/18 22:30 Dose: Not Given Oxycodone HCl (Oxycodone Immediate Release Tab) 5 mg PO Q6H PRN PRN Reason: Pain, moderate (4-7) Paroxetine HCl (Paxil) 30 mg PO HS [facility] Last Admin: 10/11/18 23:20 Dose: Not Given - Labs Labs: 10/12/18 06:00 10/12/18 06:00 - Constitutional Appears: Chronically Ill - Head Exam Head Exam: NORMAL INSPECTION - Neck Exam Neck Exam: absent: Meningismus - Respiratory Exam Respiratory Exam: Decreased Breath Sounds Additional comments: right anterior chest wall port in place - Cardiovascular Exam Cardiovascular Exam: +S1, +S2 - GI/Abdominal Exam GI & Abdominal Exam: Soft. absent: Tenderness Assessment and Plan - Assessment and Plan (Free Text) Plan: Assessment sepsis due to right sided HCAP history of severe sepsis from severe C. diff. pancolitis S/P sepsis due to UTI with Klebsiella necrotic retroperitoneal mass - patient with stage 4 cancer history of sepsis due to severe C. diff. colitis history of sepsis due to left lower lobe community-acquired pneumonia R/O UTI from Klebsiella depression cataracts right ear deafness history of C. diff. infection irritable bowel syndrome S/P appendectomy Plan continue cefepime and Zithromax day 2 and gave a dose of IV Vancomycin; blood cx are negative; target 4-7 days overall prognosis is poor
[2018-10-12 16:49] LABS: BLOOD UREA NITROGEN 24 mg/dL (7-21); CALCIUM 9.1 mg/dL (8.4-10.5); GFR NON-AFRICAN AMERICAN 52
[2018-10-12 17:25] LABS: HEMOGLOBIN 9.8 g/dL (12.0-16.0)
[2018-10-12] MEDS: Cefepime IV 2 gm in NS 2 GM/100 ML BAG IVPB SCH (22:31)
[2018-10-13 07:06] LABS: BASO # 0.02 K/mm3 (0.0-2.0); BASO % 0.1 % (0.0-3.0); EOS # 0.1 (0.0-0.7); EOS % 0.4 % (1.5-5.0); HEMOGLOBIN 9.6 g/dL (12.0-16.0); LYMPH # 2.5 (1.2-3.4); LYMPH % 14.6 % (22.0-35.0); MEAN CELL VOLUME 88.9 fl (80.0-105.0); MEAN CORPUSCULAR HEMOGLOBIN 27.3 pg (25.0-35.0); MEAN CORPUSCULAR HGB CONC 30.7 g/dl (31.0-37.0); MEAN PLATELET VOLUME 9.3 fl (7.0-11.0); MONO # 1.1 (0.1-0.6); MONO % 6.7 % (1.0-6.0); RBC 3.52 10^6/uL (3.5-6.1); RED CELL DISTRIBUTION WIDTH 17.4 % (11.5-14.5)
[2018-10-13 07:48] LABS: ALB/GLOB RATIO 0.7 (1.1-1.8); ALBUMIN 2.6 g/dL (3.0-4.8); ALT/SGPT 12 U/L (7-56); AST/SGOT 36 U/L (14-36); BLOOD UREA NITROGEN 25 mg/dL (7-21); CALCIUM 8.8 mg/dL (8.4-10.5); GFR NON-AFRICAN AMERICAN 59
[2018-10-13] MEDS: Cefepime IV 2 gm in NS 2 GM/100 ML BAG IVPB SCH ×2 (10:24→21:02)
[2018-10-13] MEDS: Sodium Chloride 0.9% 1,000 ML IV SCH ×3 (10:28→20:07)
[2018-10-13] MEDS: Azithromycin 500MG/NS 250ml 500 MG/250 ML BAG IVPB SCH (13:48)
--- NOTE | 2018-10-13 19:08 | PN ---
DATE: 10/13/2018 SUBJECTIVE: The patient is an 88-year-old, seems to be awake and alert and become sleepy in between, not in any distress. Oral intake is poor. She is still on one-to-one. PHYSICAL EXAMINATION VITAL SIGNS: She is afebrile, pulse 101, respirations 18, and blood pressure 144/81. LUNGS: Bilateral fair airflow. Soft crackle in both basis. HEART: S1 and S2, audible. ABDOMEN: Soft and nontender. No rebound. No guarding. NEUROLOGIC: The patient is sleepy, but arousable. EXTREMITIES: Bilateral leg, no edema. LABORATORY DATA: WBC 17, hemoglobin 9.6, hematocrit 31.3, and platelets 437. Chemistry: Sodium 140, potassium 5.3, chloride 114, CO2 of 20. BUN 25, creatinine 0.9, blood sugar of 101. Procalcitonin 2.66. Blood culture and urine culture is negative. She had x-ray of chest done that shows dense right middle lobe pneumonia at the lower lingula and the left lower lobe. ASSESSMENT AND PLAN: 1. Sepsis secondary to multilobar pneumonia. 2. Retroperitoneal malignancy, status post chemotherapy. 3. Mild dementia. 4. Anxiety disorder. 5. Leukocytosis. 6. Altered mental status. 7. Malnutrition. 8. Deconditioning. PLAN: The patient currently is on Duragesic patch. Her potassium is high. We will give her a dose of Kayexalate. Continue her on Klonopin. She is on cefepime. She is getting Protonix. I will continue her on IV fluid since her oral intake is poor and she is on Zithromax. Dr. Hernandez will follow up the patient in a.m. Carla Magana MD
--- NOTE | 2018-10-13 19:54 | CP.PCM.HP ---
History of Present Illness - History of Present Illness History of Present Illness: Pt. 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 She got few cycles of chemotherapy with single agent Gemcitabine. She tolerated chemo well with stable disease. She refused chemotherapy, her last chemo was in Apr 2018. She has been on supportive care. Chronic pain issues, Fentanyl patch, and oxycodone for pain. She also has severe anxiety. Admitted with difficulty in swallowing, not feeling well. CXR showed B/L lung infiltrate. She had recent CT chest, abdomen, pelvis done without contrast. abdominal mass was not appreciated. No fever, cough. Present on Admission - Present on Admission Any Indicators Present on Admission: No Review of Systems - Constitutional Constitutional: As Per HPI - EENT Eyes: absent: As Per HPI, Blind Spots, Blurred Vision, Change in Vision, Decreased Night Vision, Diplopia, Discharge, Dry Eye, Exophthalmos, Floaters, Irritation, Itchy Eyes, Loss of Peripheral Vision, Pain, Photophobia, Requires Corrective Lenses, Sees Flashes, Spots in Vision, Tunnel Vision, Other Visual Disturbances, Loss of Vision, Other Ears: absent: As Per HPI, Decreased Hearing, Ear Discharge, Ear Pain, Tinnitus, Abnormal Hearing, Disequilibrium, Dizziness, Other Nose/Mouth/Throat: absent: As Per HPI, Epistaxis, Nasal Congestion, Nasal Discharge, Nasal Obstruction, Nasal Trauma, Nose Pain, Post Nasal Drip, Sinus Pain, Sinus Pressure, Bleeding Gums, Change in Voice, Dental Pain, Dry Mouth, Dysphagia, Halitosis, Hoarsness, Lip Swelling, Mouth Lesions, Mouth Pain, Odynophagia, Sore Throat, Throat Swelling, Tongue Swelling, Facial Pain, Neck Pain, Neck Mass, Other - Breasts Breasts: absent: As Per HPI, Change in Shape, Mass, Pain, Nipple Discharge, Nipple Inversion, Skin Changes, Swelling, Other - Cardiovascular Cardiovascular: absent: As Per HPI, Acrocyanosis, Chest Pain, Chest Pain at Rest, Chest Pain with Activity, Claudication, Diaphoresis, Dyspnea, Dyspnea on Exertion, Edema, Irregular Heart Rhythm, Pain Radiating to Arm/Neck/Jaw, Leg Edema, Leg Ulcers, Lightheadedness, Orthopnea, Palpitations, Paroxysmal Nocturnal Dyspnea, Pedal Edema, Radiating Pain, Rapid Heart Rate, Slow Heart Rate, Syncope, Other - Respiratory Respiratory: As Per HPI - Gastrointestinal Gastrointestinal: As Per HPI - Genitourinary Genitourinary: absent: As Per HPI, Change in Urinary Stream, Difficulty Urinating, Dysuria, Flank Pain, Hematuria, Pyuria, Nocturia, Urinary Incontinence, Urinary Frequency, Urinary Hesitance, Urinary Urgency, Voiding Freq/Small Amts, Freq UTI, Hx Renal/Bladder Calculi, Hx /Renal Surgery, Bladder Distension, Other - Musculoskeletal Musculoskeletal: absent: As Per HPI, Abnormal Gait, Arthralgias, Atrophy, Back Pain, Deformity, Joint Swelling, Limited Range of Motion, Loss of Height, Muscle Cramps, Muscle Weakness, Myalgias, Neck Pain, Numbness, Radiating Pain into Limb, Stiffness, Tingling, Other - Integumentary Integumentary: absent: As Per HPI, Acne, Alopecia, Bleeding Lesions, Change in Hair, Change in Nails, Change in Pigmentation, Changing Lesions, Dry Skin, Erythema, Furuncle, Hirsutism, Lesions, New Lesions, Non-Healing Lesions, Photosensitivity, Pruritus, Rash, Skin Pain, Skin Ulcer, Sores, Striae, Swell ing, Unusual Bruising, Wounds, Jaundice, Other - Neurological Neurological: As Per HPI - Psychiatric Psychiatric: Anxiety - Endocrine Endocrine: absent: As Per HPI, Change in Body Appearance, Change in Libido, Cold Intolorance, Deepening of Voice, Excessive Sweating, Fatigue, Flushing, Heat Intolorance, Increase in Ring/Shoe/Hat Size, Palpitations, Polydipsia, Polyphagia, Polyuria, Other - Hematologic/Lymphatic Hematologic: As Per HPI Past Patient History - Infectious Disease Hx of Infectious Diseases: C.diff - Tetanus Immunizations Tetanus Immunization: Unknown - Past Medical History & Family History Past Medical History?: Yes - Past Social History Smoking Status: Former Smoker - CARDIAC Hx Hypertension: Yes - PULMONARY Hx Respiratory Disorders: Yes (SMOKED CIGARETTES BEFORE QUIT PK EVERY OTHER DAY) Hx Pneumonia: Yes Other/Comment: quit smoking over 25 yrs ago, sirs resolved - NEUROLOGICAL Hx Neurological Disorder: Yes Hx Dizziness: Yes - HEENT Hx HEENT Problems: Yes Hx Cataracts: Yes (b/l sx) 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) - RENAL Hx Chronic Kidney Disease: Yes (left kidney ca) Hx Renal (Kidney) Cancer: Yes (dx 11/2017) Other/Comment: 11/26/17 cystoscope, left retrograde pyelogram,unsucessful attempt to insert stent, bladder biopsies: dx left hydronephrosis, squamous cell ca - ENDOCRINE/METABOLIC Hx Endocrine Disorders: No - HEMATOLOGICAL/ONCOLOGICAL Hx Cancer: Yes (stage IV retroperitoneal squamous cell) - INTEGUMENTARY Hx Dermatological Problems: Yes (poor skin turgor) Other/Comment: multiple moles to back, spider veins ble, no toenails to both great toes, hammertoes 2 3 4 5 both feet, dry skin rle, left hip stage 2 open wound wound bed red/brown dry covered with optifoam 1.5cm x 1.5cm, red buttocks, ultiple b/l arm skin discolorations "from bloodwork" stated pt, multiple red scabs from fall to underside of right forearm, left ear red wound, right ear slight redness - MUSCULOSKELETAL/RHEUMATOLOGICAL Hx Arthritis: Yes - GASTROINTESTINAL Hx Gastroesophageal Reflux: Yes - GENITOURINARY/GYNECOLOGICAL Hx Genitourinary Disorders: Yes Hx Incontinence: Yes Hx Urinary Tract Infection: Yes Other/Comment: excision benign cluster of breast cyst 1972, lymph node bx - PSYCHIATRIC Hx Psychophysiologic Disorder: Yes Hx Anxiety: Yes Hx Bipolar Disorder: Yes Hx Depression: Yes Hx Emotional Abuse: No Hx Panic Symptoms: Yes Hx Physical Abuse: No Hx Substance Use: No Other/Comment: community resource use - SURGICAL HISTORY Hx Appendectomy: Yes (ovarian cyst and ap together) Other/Comment: b/l exc benign cluster of breast cysts 1972, lymph node bx, right chest wall vascular access, sigmoidectomy over 10 yrs ago, sx b/l carpal tunnel, rcw pac, sigmoidectomy - ANESTHESIA Hx Anesthesia: Yes Hx Anesthesia Reactions: No Hx Malignant Hyperthermia: No Meds Allergies/Adverse Reactions: Allergies Allergy/AdvReac Type Severity Reaction Status Date / Time tetracycline Allergy Severe ANAPHYLAXIS Verified 10/10/18 11:19 Physical Exam - Constitutional Appears: Chronically Ill - Head Exam Head Exam: ATRAUMATIC, NORMAL INSPECTION, NORMOCEPHALIC - Eye Exam Eye Exam: Normal appearance - ENT Exam ENT Exam: Mucous Membranes Moist, Normal Exam - Neck Exam Neck exam: Positive for: Normal Inspection - Respiratory Exam Respiratory Exam: Clear to Auscultation Bilateral, NORMAL BREATHING PATTERN - Cardiovascular Exam Cardiovascular Exam: REGULAR RHYTHM, +S1, +S2 - GI/Abdominal Exam GI & Abdominal Exam: Normal Bowel Sounds - Extremities Exam Extremities exam: Positive for: normal inspection - Back Exam Back exam: NORMAL INSPECTION - Neurological Exam Neurological exam: Alert, CN II-XII Intact, Oriented x3 - Skin Skin Exam: Normal Color, Warm Results - Vital Signs Recent Vital Signs: Last Vital Signs Temp 97.6 F 10/13/18 17:50 Pulse 119 H 10/13/18 18:00 Resp 20 10/13/18 17:50 BP 148/80 10/13/18 17:50 Pulse Ox 88 L 10/13/18 10:00 - Labs Result Diagrams: 10/13/18 05:00 10/13/18 05:00 Labs: Laboratory Results - last 24 hr 10/12/18 10/13/18 10/13/18 10:00 05:00 05:00 WBC 17.0 H RBC 3.52 Hgb 9.6 L Hct 31.3 L MCV 88.9 MCH 27.3 MCHC 30.7 L RDW 17.4 H Plt Count 437 MPV 9.3 Neut % (Auto) 78.2 H Lymph % (Auto) 14.6 L Woodson % (Auto) 6.7 H Eos % (Auto) 0.4 L Baso % (Auto) 0.1 Lymph # (Auto) 2.5 Woodson # (Auto) 1.1 H Eos # (Auto) 0.1 Baso # (Auto) 0.02 Absolute Neuts (auto) 13.33 H Sodium Potassium Chloride Carbon Dioxide Anion Gap BUN Creatinine Est GFR ( Amer) Est GFR (Non-Af Amer) Random Glucose Calcium Total Bilirubin AST ALT Alkaline Phosphatase Total Protein Albumin Globulin Albumin/Globulin Ratio Vancomycin Trough 14.0 H Ur L.pneumophila Ag Negative 10/13/18 05:00 WBC RBC Hgb Hct MCV MCH MCHC RDW Plt Count MPV Neut % (Auto) Lymph % (Auto) Woodson % (Auto) Eos % (Auto) Baso % (Auto) Lymph # (Auto) Woodson # (Auto) Eos # (Auto) Baso # (Auto) Absolute Neuts (auto) Sodium 140 Potassium 5.3 H Chloride 114 H Carbon Dioxide 20 L Anion Gap 12 BUN 25 H Creatinine 0.9 Est GFR ( Amer) > 60 Est GFR (Non-Af Amer) 59 Random Glucose 101 Calcium 8.8 Total Bilirubin 0.6 AST 36 ALT 12 Alkaline Phosphatase 111 Total Protein 6.4 Albumin 2.6 L Globulin 3.8 Albumin/Globulin Ratio 0.7 L Vancomycin Trough Ur L.pneumophila Ag Assessment & Plan - Assessment and Plan (Free Text) Assessment: 1. Stage IV squamous cell cancer. On supportive care only as per patient wishes. 2. B/L Pneumonia. IV ceftrioxone 1 gm daily ordered. ID consult Dr. Anne requested. 3. Pain : fentanyl 25 mcgm TD Q 72 hrs. Oxycodone 5 mg Q 4 hr prn for pain. 4. Anxiety : xanax, colonipin to continue. 5. DVT : lovenox SQ 30 mg daily. 6. Anemia : iron deficiency, chronic disease. Hb/hct stable. 7. Difficulty in swallowing : swallow eval. Discussed with daughter at length her status. Discussed with staff Nurse. - Date & Time Date: 10/10/18 Time: 18:00
--- NOTE | 2018-10-13 20:06 | CP.PCM.PN ---
Subjective - Date & Time of Evaluation Date of Evaluation: 10/11/18 Time of Evaluation: 09:00 - Subjective Subjective: She is agitated. Wants to get out of bed. Oriented, alert. No fever, cough. C/O difficulty in swallowing. s/p fall at home. Objective - Vital Signs/Intake and Output Vital Signs (last 24 hours): Temp Pulse Resp BP Pulse Ox 97.6 F 119 H 20 148/80 88 L 10/13/18 17:50 10/13/18 18:00 10/13/18 17:50 10/13/18 17:50 10/13/18 10:00 Intake and Output: 10/13/18 10/14/18 18:59 06:59 Intake Total 1145 Balance 1145 - Medications Medications: Current Medications Acetaminophen (Tylenol 650 Mg Supp) 650 mg RC Q6 PRN PRN Reason: Fever >100.4 F Last Admin: 10/13/18 02:09 Dose: 650 mg Clonazepam (Klonopin) 1 mg PO QID [facility]; Protocol Last Admin: 10/13/18 19:20 Dose: Not Given Fentanyl (Duragesic) 1 patch TD Q72H [facility] Last Admin: 10/11/18 00:06 Dose: 1 patch Sodium Chloride (Sodium Chloride 0.9%) 1,000 mls @ 100 mls/hr IV .Q10H [facility] Last Admin: 10/13/18 10:29 Dose: 100 mls/hr Azithromycin (Zithromax 500mg In Ns) 500 mg in 250 mls @ 167 mls/hr IVPB DAILY [facility]; Protocol Last Admin: 10/13/18 13:48 Dose: 167 mls/hr Cefepime HCl (Maxipime 2gm) 2 gm in 100 mls @ 100 mls/hr IVPB Q12 [facility]; Protocol Stop: 10/17/18 22:01 Last Admin: 10/13/18 10:24 Dose: 100 mls/hr Mirtazapine (Remeron) 30 mg PO HS [facility] Last Admin: 10/12/18 22:31 Dose: Not Given Oxycodone HCl (Oxycodone Immediate Release Tab) 5 mg PO Q6H PRN PRN Reason: Pain, moderate (4-7) Pantoprazole Sodium (Protonix Inj) 40 mg IVP DAILY [facility] Last Admin: 10/13/18 10:24 Dose: 40 mg Paroxetine HCl (Paxil) 30 mg PO HS [facility] Last Admin: 10/12/18 22:30 Dose: Not Given - Labs Labs: 10/13/18 05:00 10/13/18 05:00 - Constitutional Appears: Chronically Ill - Head Exam Head Exam: ATRAUMATIC, NORMAL INSPECTION, NORMOCEPHALIC - Eye Exam Eye Exam: Normal appearance Pupil Exam: NORMAL ACCOMODATION - ENT Exam ENT Exam: Mucous Membranes Moist, Normal Exam - Neck Exam Neck Exam: Normal Inspection - Respiratory Exam Respiratory Exam: Clear to Ausculation Bilateral, NORMAL BREATHING PATTERN - Cardiovascular Exam Cardiovascular Exam: REGULAR RHYTHM, +S1, +S2 - GI/Abdominal Exam GI & Abdominal Exam: Soft, Normal Bowel Sounds - Extremities Exam Extremities Exam: Normal Inspection - Back Exam Back Exam: NORMAL INSPECTION - Neurological Exam Neurological Exam: Alert, CN II-XII Intact, Oriented x3 - Psychiatric Exam Psychiatric exam: Flat Affect - Skin Skin Exam: Pallor Assessment and Plan - Assessment and Plan (Free Text) Assessment: 1. Stage IV Sq . cell cancer. on supportive care only as per patient wishes. 2. B/L PNA, antibiotics as per ID. add flagyl for previous history of C-Diff 250 mg PO QID. 3. Ct. DVT prophylaxis , lovenox 30 mg SQ daily. 4. Discussed with daughter about home hospice. She declined. She just wants home care services at home. student services director will be consulted.
--- NOTE | 2018-10-13 21:50 | PN ---
DATE: 10/13/2018 SUBJECTIVE: The patient is seen earlier today in 269, bed 1. No fevers, no chills. PHYSICAL EXAMINATION: VITAL SIGNS: Temperature is 98, blood pressure is 120/70, respiratory rate of 18. HEENT: Unremarkable. NECK: Supple. LUNGS: Have decreased breath sounds. HEART: Normal S1, S2. ABDOMEN: Soft. LABORATORY EXAMINATION: Reveals a white count of 17,000, hemoglobin of 9, platelets of 437. Chemistries reveals a BUN of 25, creatinine of 0.9. Procalcitonin is noted. Toxicology is noted.. Vancomycin level of 14. Urine for Legionella antigen is negative. ASSESSMENT AND PLAN: This is an 88-year-old female with sepsis secondary to right-sided healthcare-associated pneumonia on cefepime and azithromycin, intermittent vancomycin day #3 with complete 4-7 days of antibiotics. The blood cultures are negative. The methicillin-resistant Staphylococcus aureus screen is negative. On azithromycin and cefepime since the patient is ALLERGIC TO TETRACYCLINE. QTC is 463. Overall prognosis is poor. Sebastian Álvarez MD
[2018-10-14] MEDS: Sodium Chloride 0.9% 1,000 ML IV SCH ×3 (04:59→11:35)
--- NOTE | 2018-10-14 08:59 | PN ---
DATE: 10/14/2018 SUBJECTIVE: She is comfortable in bed in no acute distress. She continues to be on one to one for agitation. No fever, no cough with expectoration. She has right-sided healthcare-associated pneumonia, currently on IV antibiotics, cefepime, and azithromycin. Blood cultures have been negative. REVIEW OF SYSTEMS: As per HPI. Rest of 12-point review of systems reviewed negative. PHYSICAL EXAMINATION: GENERAL: Comfortable in bed in no acute distress. VITAL SIGNS: Temperature 98.4, T-max was 100.6, heart rate is 114, blood pressure 142/60, respiratory rate 20 per minute, oxygen saturation 98% room air. HEENT: Pallor positive. NECK: No lymphadenopathy. CHEST: Air entry present equal bilaterally. No added sound. CARDIOVASCULAR: S1, S2 normal. No murmur. No gallop. ABDOMEN: Soft, nontender. No hepatosplenomegaly. EXTREMITIES: No edema. SENSORIUM: Alert and oriented x3. No focal sensory motor deficit. LABORATORY DATA: White count 17,000, hemoglobin 9.6, hematocrit 31.3, platelet 437. Potassium 5.3, creatinine 0.9. ASSESSMENT AND PLAN: 1. Stage IV squamous cell cancer of unknown primary retroperitoneal left-sided, currently on supportive care. 2. Healthcare-associated pneumonia on IV antibiotics, cefepime, and Zithromax, Dr. Álvarez following. 3. Agitation. She has a lot of psych issues including anxiety. We will get the psych consult Dr. Huddleston. For further management and treatment. 4. She is DO NOT RESUSCITATE/DO NOT INTUBATE. 5. Discuss the possibility of hospice with the daughter. She refused. She wants services at home. Discussed with the case management team in anticipation of discharge planning. Dr. Álvarez consult appreciated, note reviewed. Alma Hernandez MD Pt's daughter came to office today. She communicated to me that she wants home hospice for her mother. Case management informed. Palliative consult ordered. LUDIN
[2018-10-14 09:49] LABS: HEMOGLOBIN 8.6 g/dL (12.0-16.0); MEAN CELL VOLUME 88.6 fl (80.0-105.0); MEAN CORPUSCULAR HEMOGLOBIN 27.3 pg (25.0-35.0); MEAN CORPUSCULAR HGB CONC 30.8 g/dl (31.0-37.0); MEAN PLATELET VOLUME 8.7 fl (7.0-11.0); RBC 3.15 10^6/uL (3.5-6.1); RED CELL DISTRIBUTION WIDTH 17.4 % (11.5-14.5)
[2018-10-14 10:00] LABS: ALB/GLOB RATIO 0.7 (1.1-1.8); ALBUMIN 2.4 g/dL (3.0-4.8); ALT/SGPT 12 U/L (7-56); AST/SGOT 45 U/L (14-36); BLOOD UREA NITROGEN 19 mg/dL (7-21); CALCIUM 9.2 mg/dL (8.4-10.5); GFR NON-AFRICAN AMERICAN > 60
--- NOTE | 2018-10-14 11:23 | CP.PCM.PCO ---
Physician Communication Note - Physician Communication Note Physician Communication Note: per MD, patient's daughter would like home hospice.
[2018-10-14] MEDS: Cefepime IV 2 gm in NS 2 GM/100 ML BAG IVPB SCH ×2 (11:26→21:18)
--- NOTE | 2018-10-14 13:04 | CP.PCM.CON ---
History of Present Illness - History of Present Illness History of Present Illness: Palliative consult requested by Dr Marco Hernandez Reason:Goals of care/Hospice discussion 88 year old female with history of squamous cell carcinoma who presented to ED on with lethargy, decreased appetite. She denied chest pain, shortness of breath, nausea, vomiting,abdominal pain, fever,chills, headache, dysuria. Chest x ray:interval dense pneumonia of right middle lobe. EKG: ST with occasional PVC's, possible anterior wall infarct age undetermined PMHx: squamous cell cancer s/p chemotherapy, C Diff, colitis, OA,gait dysfun ction,depression, frequent falls PSHx : right chest port, appendectomy, lumpectomy Family History: Colon cancer Social History Former smoker, no alcohol or drug use. Lives with her daughter, Joslyn Villatoro. Advance Care Planning: The patient has a POLST and is DNR/DNI. Review of Systems:As per HPI, 12 point ROS otherwise negative Past Patient History - Infectious Disease Hx of Infectious Diseases: C.diff - Tetanus Immunizations Tetanus Immunization: Unknown - Past Medical History & Family History Past Medical History?: Yes - Past Social History Smoking Status: Former Smoker - CARDIAC Hx Hypertension: Yes - PULMONARY Hx Respiratory Disorders: Yes (SMOKED CIGARETTES BEFORE QUIT PK EVERY OTHER DAY) Hx Pneumonia: Yes Other/Comment: quit smoking over 25 yrs ago, sirs resolved - NEUROLOGICAL Hx Neurological Disorder: Yes Hx Dizziness: Yes - HEENT Hx HEENT Problems: Yes Hx Cataracts: Yes (b/l sx) 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) - RENAL Hx Chronic Kidney Disease: Yes (left kidney ca) Hx Renal (Kidney) Cancer: Yes (dx 11/2017) Other/Comment: 11/26/17 cystoscope, left retrograde pyelogram,unsucessful attempt to insert stent, bladder biopsies: dx left hydronephrosis, squamous cell ca - ENDOCRINE/METABOLIC Hx Endocrine Disorders: No - HEMATOLOGICAL/ONCOLOGICAL Hx Cancer: Yes (stage IV retroperitoneal squamous cell) - INTEGUMENTARY Hx Dermatological Problems: Yes (poor skin turgor) Other/Comment: multiple moles to back, spider veins ble, no toenails to both great toes, hammertoes 2 3 4 5 both feet, dry skin rle, left hip stage 2 open wound wound bed red/brown dry covered with optifoam 1.5cm x 1.5cm, red buttocks, ultiple b/l arm skin discolorations "from bloodwork" stated pt, multiple red scabs from fall to underside of right forearm, left ear red wound, right ear slight redness - MUSCULOSKELETAL/RHEUMATOLOGICAL Hx Arthritis: Yes - GASTROINTESTINAL Hx Gastroesophageal Reflux: Yes - GENITOURINARY/GYNECOLOGICAL Hx Genitourinary Disorders: Yes Hx Incontinence: Yes Hx Urinary Tract Infection: Yes Other/Comment: excision benign cluster of breast cyst 1972, lymph node bx - PSYCHIATRIC Hx Psychophysiologic Disorder: Yes Hx Anxiety: Yes Hx Bipolar Disorder: Yes Hx Depression: Yes Hx Emotional Abuse: No Hx Panic Symptoms: Yes Hx Physical Abuse: No Hx Substance Use: No Other/Comment: community resource use - SURGICAL HISTORY Hx Appendectomy: Yes (ovarian cyst and ap together) Other/Comment: b/l exc benign cluster of breast cysts 1972, lymph node bx, right chest wall vascular access, sigmoidectomy over 10 yrs ago, sx b/l carpal tunnel, rcw pac, sigmoidectomy - ANESTHESIA Hx Anesthesia: Yes Hx Anesthesia Reactions: No Hx Malignant Hyperthermia: No Meds Allergies/Adverse Reactions: Allergies Allergy/AdvReac Type Severity Reaction Status Date / Time tetracycline Allergy Severe ANAPHYLAXIS Verified 10/10/18 11:19 - Medications Medications: Current Medications Acetaminophen (Tylenol 650 Mg Supp) 650 mg RC Q6 PRN PRN Reason: Fever >100.4 F Last Admin: 10/14/18 04:40 Dose: 650 mg Clonazepam (Klonopin) 1 mg PO QID [facility]; Protocol Last Admin: 10/14/18 11:27 Dose: Not Given Fentanyl (Duragesic) 1 patch TD Q72H [facility] Last Admin: 10/13/18 22:18 Dose: 1 patch Sodium Chloride (Sodium Chloride 0.9%) 1,000 mls @ 100 mls/hr IV .Q10H [facility] Last Admin: 10/14/18 11:35 Dose: 100 mls/hr Azithromycin (Zithromax 500mg In Ns) 500 mg in 250 mls @ 167 mls/hr IVPB DAILY [facility]; Protocol Last Admin: 10/13/18 13:48 Dose: 167 mls/hr Cefepime HCl (Maxipime 2gm) 2 gm in 100 mls @ 100 mls/hr IVPB Q12 [facility]; Protocol Stop: 10/17/18 22:01 Last Admin: 10/14/18 11:26 Dose: 100 mls/hr Mirtazapine (Remeron) 30 mg PO HS [facility] Last Admin: 10/13/18 21:02 Dose: 30 mg Oxycodone HCl (Oxycodone Immediate Release Tab) 5 mg PO Q6H PRN PRN Reason: Pain, moderate (4-7) Pantoprazole Sodium (Protonix Inj) 40 mg IVP DAILY [facility] Last Admin: 10/14/18 11:26 Dose: 40 mg Paroxetine HCl (Paxil) 30 mg PO HS [facility] Last Admin: 10/13/18 21:02 Dose: 30 mg Vancomycin HCl (Vancocin 25 Mg/Ml (Oral Use)) 250 mg PO QID [facility]; Protocol Physical Exam - Constitutional Appears: Cachectic, Chronically Ill - Eye Exam Eye Exam: Normal appearance, PERRL - Respiratory Exam Respiratory Exam: Decreased Breath Sounds, NORMAL BREATHING PATTERN - Cardiovascular Exam Cardiovascular Exam: REGULAR RHYTHM, +S1, +S2 - GI/Abdominal Exam GI & Abdominal Exam: Normal Bowel Sounds, Soft - Neurological Exam Neurological exam: Alert - Skin Skin Exam: Dry, Pallor - Additional Findings Additional findings: Palliative performance scale rating 40% Results - Vital Signs Recent Vital Signs: Last Vital Signs Temp 98.4 F 10/14/18 06:00 Pulse 114 H 10/14/18 06:00 Resp 20 10/14/18 06:00 BP 142/62 10/14/18 06:00 Pulse Ox 88 L 10/13/18 10:00 - Labs Result Diagrams: 10/14/18 07:49 10/14/18 07:49 Labs: Laboratory Results - last 24 hr 10/14/18 10/14/18 07:49 07:49 WBC 15.0 H RBC 3.15 L Hgb 8.6 L Hct 27.9 L MCV 88.6 MCH 27.3 MCHC 30.8 L RDW 17.4 H Plt Count 404 MPV 8.7 Sodium 142 Potassium 4.0 Chloride 112 H Carbon Dioxide 24 Anion Gap 10 BUN 19 Creatinine 0.8 Est GFR ( Amer) > 60 Est GFR (Non-Af Amer) > 60 Random Glucose 120 H Calcium 9.2 Total Bilirubin 0.2 AST 45 H D ALT 12 Alkaline Phosphatase 101 Total Protein 5.9 Albumin 2.4 L Globulin 3.5 Albumin/Globulin Ratio 0.7 L Assessment & Plan - Assessment and Plan (Free Text) Assessment: 88 year old female with history of metastatic Squamluse Cell carcinoma, sepis, OA, who is admitted with leukocytosis, anemia, pneumonia, dysphagia. The patient and family are known to me from previous admission. When we last met May, we reviewed the patient's Advance Directive and then completed a POLST directive. She is DNR/DNI, the patients daughter Joslyn Villatoro is health care proxy. This morning Chiqui expressed interest in home hospice care. Geovanny HENRY, [facility] business liaison officer and myself are scheduled to meet with Joslyn tomorrow Plan: Goals of care Pneumonia: Continue Zithromax, Cefepime and Vancomycin. Dysphagia: Speech as swallow recs reviewed, continue advanced dysphagia level 3 diet Pain : Oxycodone 5 mg IR Depression: Continue Remeron, Paxil. PT/OT
--- NOTE | 2018-10-14 13:47 | CP.PCM.APN ---
Subjective - Date & Time of Evaluation Date of Evaluation: 10/14/18 Time of Evaluation: 11:30 - Subjective Subjective: Pt. seen resting in bed, appears resting and lethargic, resp easy and unlabored. Per nurse, no complaints. Review of Systems - Constitutional Constitutional: As Per HPI, Lethargy - EENT Eyes: absent: As Per HPI, Blind Spots, Blurred Vision, Change in Vision, Decreased Night Vision, Diplopia, Discharge, Dry Eye, Exophthalmos, Floaters, Irritation, Itchy Eyes, Loss of Peripheral Vision, Pain, Photophobia, Requires Corrective Lenses, Sees Flashes, Spots in Vision, Tunnel Vision, Other Visual Disturbances, Loss of Vision, Other Ears: absent: As Per HPI, Decreased Hearing, Ear Discharge, Ear Pain, Tinnitus, Abnormal Hearing, Disequilibrium, Dizziness, Other Nose/Mouth/Throat: absent: As Per HPI, Epistaxis, Nasal Congestion, Nasal Discharge, Nasal Obstruction, Nasal Trauma, Nose Pain, Post Nasal Drip, Sinus Pain, Sinus Pressure, Bleeding Gums, Change in Voice, Dental Pain, Dry Mouth, Dysphagia, Halitosis, Hoarsness, Lip Swelling, Mouth Lesions, Mouth Pain, Odynophagia, Sore Throat, Throat Swelling, Tongue Swelling, Facial Pain, Neck Pain, Neck Mass, Other - Breasts Breasts: absent: As Per HPI, Change in Shape, Mass, Pain, Nipple Discharge, Nipple Inversion, Skin Changes, Swelling, Other - Cardiovascular Cardiovascular: absent: As Per HPI, Acrocyanosis, Chest Pain, Chest Pain at Rest, Chest Pain with Activity, Claudication, Diaphoresis, Dyspnea, Dyspnea on Exertion, Edema, Irregular Heart Rhythm, Pain Radiating to Arm/Neck/Jaw, Leg Edema, Leg Ulcers, Lightheadedness, Orthopnea, Palpitations, Paroxysmal Nocturnal Dyspnea, Pedal Edema, Radiating Pain, Rapid Heart Rate, Slow Heart R ate, Syncope, Other - Gastrointestinal Gastrointestinal: absent: As Per HPI, Abdominal Pain, Belching, Bloating, Change in Bowel Habits, Change in Stool Character, Coffee Ground Emesis, Constipation, Cramping, Diarrhea, Dyspepsia, Dysphagia, Early Satiety, Excessive Flatus, Fecal Incontinence, Heartburn, Hematemesis, Hematochezia, Loose Stools, Melena, Nausea , Odynophagia, Temesmus, Vomiting, Other - Genitourinary Genitourinary: absent: As Per HPI, Change in Urinary Stream, Difficulty Urinating, Dysuria, Flank Pain, Hematuria, Pyuria, Nocturia, Urinary Incontinence, Urinary Frequency, Urinary Hesitance, Urinary Urgency, Voiding Freq/Small Amts, Freq UTI, Hx Renal/Bladder Calculi, Hx /Renal Surgery, Bladder Distension, Other - Reproductive: Female Reproductive:Female: absent: As Per HPI, Amenorrhea, Amenorrhea/ Control, Currently Menstual, Cycle <21 Days, Cycle >35 Days, Cycle Variable, Menses 1-7 Days, Menses >/= 8 Days, Menses Variable, Cycle > 4 Weeks Between, No Menses for 6 Months, Heavy Menses, Light Menses, Normal Menses, Spotting Between Cycles, S/P Hysterectomy, Menopausal, Post Menopausal, Premenarche, Abnormal Vaginal Bleeding, Dysmenorrhea, Dyspareunia, Genital Lesions, Genital Pruritis, Pelvic Pain, Prolapse Symptoms, Sexual Dysfunction, Vaginal Discharge, Vaginal Dryness, Vaginal Odor, Vaginal Pruritis, Other - Menstruation Menstruation: absent: As Per HPI, Amenorrhea, Amenorrhea/ Control, Curren tly Menstual, Cycle <21 Days, Cycle >35 Days, Cycle Variable, Menses 1-7 Days, Menses >/= 8 Days, Menses Variable, Cycle > 4 Weeks Between, No Menses for 6 Months, Heavy Menses, Light Menses, Normal Menses, Spotting Between Cycles, S/P Hysterectomy, Menopausal, Post Menopausal, Premenarche, Abnormal Vaginal Bleeding, Dysmenorrhea, Other - Musculoskeletal Musculoskeletal: absent: As Per HPI, Abnormal Gait, Arthralgias, Atrophy, Back Pain, Deformity, Joint Swelling, Limited Range of Motion, Loss of Height, Muscle Cramps, Muscle Weakness, Myalgias, Neck Pain, Numbness, Radiating Pain into Limb, Stiffness, Tingling, Other - Integumentary Integumentary: absent: As Per HPI, Acne, Alopecia, Bleeding Lesions, Change in H air, Change in Nails, Change in Pigmentation, Changing Lesions, Dry Skin, Erythema, Furuncle, Hirsutism, Lesions, New Lesions, Non-Healing Lesions, Photosensitivity, Pruritus, Rash, Skin Pain, Skin Ulcer, Sores, Striae, Swelling, Unusual Bruising, Wounds, Jaundice, Other - Neurological Neurological: absent: As Per HPI, Abnormal Gait, Abnormal Hearing, Abnormal Movements, Abnormal Speech, Behavioral Changes, Burning Sensations, Confusion, Convulsions, Disequilibrium, Dizziness, Numbness, Focal Weakness, Frequent Falls, Headaches, Lack of Coordination, Loss of Vision, Memory Loss, Paresthesias, Radicular Pain, Restless Legs, Sensory Deficit, Syncope, Tingling, Tremor, Vertigo, Weakness, Other Visual Disturbances, Other - Psychiatric Psychiatric: absent: As Per HPI, Abnormal Sleep Pattern, Anhedonia, Anxiety, Auditory Hallucinations, Behavioral Changes, Change in Appetite, Change in Libido, Confusion, Depression, Difficulty Concentrating, Hallucinations, Homicidal Ideation, Hopelessness, Irritability, Memory Loss, Mood Swings, Panic Attacks, Paranoia, Suicidal Ideation, Visual Hallucinations, Tactile Halluci nations, Other - Endocrine Endocrine: absent: As Per HPI, Change in Body Appearance, Change in Libido, Cold Intolorance, Deepening of Voice, Excessive Sweating, Fatigue, Flushing, Heat Intolorance, Increase in Ring/Shoe/Hat Size, Palpitations, Polydipsia, Polyp hagia, Polyuria, Other - Hematologic/Lymphatic Hematologic: absent: As Per HPI, Easy Bleeding, Easy Bruising, Lymphadenopathy, Other Objective - Vital Signs/Intake and Output Vital Signs (last 24 hours): Temp Pulse Resp BP Pulse Ox 98.4 F 114 H 20 142/62 88 L 10/14/18 06:00 10/14/18 06:00 10/14/18 06:00 10/14/18 06:00 10/13/18 10:00 - Medications Medications: Current Medications Acetaminophen (Tylenol 650 Mg Supp) 650 mg RC Q6 PRN PRN Reason: Fever >100.4 F Last Admin: 10/14/18 04:40 Dose: 650 mg Clonazepam (Klonopin) 1 mg PO QID [facility]; Protocol Last Admin: 10/14/18 11:27 Dose: Not Given Fentanyl (Duragesic) 1 patch TD Q72H [facility] Last Admin: 10/13/18 22:18 Dose: 1 patch Sodium Chloride (Sodium Chloride 0.9%) 1,000 mls @ 100 mls/hr IV .Q10H [facility] Last Admin: 10/14/18 11:35 Dose: 100 mls/hr Azithromycin (Zithromax 500mg In Ns) 500 mg in 250 mls @ 167 mls/hr IVPB DAILY [facility]; Protocol Last Admin: 10/13/18 13:48 Dose: 167 mls/hr Cefepime HCl (Maxipime 2gm) 2 gm in 100 mls @ 100 mls/hr IVPB Q12 [facility]; Protocol Stop: 10/17/18 22:01 Last Admin: 10/14/18 11:26 Dose: 100 mls/hr Mirtazapine (Remeron) 30 mg PO HS [facility] Last Admin: 10/13/18 21:02 Dose: 30 mg Oxycodone HCl (Oxycodone Immediate Release Tab) 5 mg PO Q6H PRN PRN Reason: Pain, moderate (4-7) Pantoprazole Sodium (Protonix Inj) 40 mg IVP DAILY [facility] Last Admin: 10/14/18 11:26 Dose: 40 mg Paroxetine HCl (Paxil) 30 mg PO HS [facility] Last Admin: 10/13/18 21:02 Dose: 30 mg Vancomycin HCl (Vancocin 25 Mg/Ml (Oral Use)) 250 mg PO QID [facility]; Protocol - Labs Labs: 10/14/18 07:49 10/14/18 07:49 - Constitutional Appears: Non-toxic, Cachectic - Head Exam Head Exam: NORMOCEPHALIC - Eye Exam Eye Exam: absent: Conjunctival injection, EOMI, Normal appearance, Nystagmus, Periorbital swelling, Periorbital tenderness, PERRL, Scleral icterus - ENT Exam ENT Exam: absent: Mucous Membranes Dry, Mucous Membranes Moist, Normal Exam, Normal External Ear Exam, Normal Oropharynx, TM's Normal Bilaterally - Neck Exam Neck Exam: Full ROM - Respiratory Exam Respiratory Exam: Decreased Breath Sounds - Cardiovascular Exam Cardiovascular Exam: Tachycardia - GI/Abdominal Exam GI & Abdominal Exam: Soft, Normal Bowel Sounds - Rectal Exam Rectal Exam: Deferred - Exam Exam: absent: Circumcision, NORMAL INSPECTION, Scrotal Swelling, Testicular Tenderness, Uretheral Discharge, Testicular Vertical Lie, Bladder Distension External exam: absent: Ecchymosis, Erythema, Lacerations, Lesions, NORMAL EXTERNAL EXAM, Swelling Speculum exam: absent: Cervical Discharge, Erythema, Foreign Body, Laceration, NORMAL SPECULUM EXAM, Tissue, Vaginal Bleeding, Vaginal Discharge Bimanual exam: absent: Adenexal Mass, Adnexal, Cervical Motion Tendernes, NORMAL BIMANUAL EXAM, Uterine Enlargement, Uterine Tenderness - Extremities Exam Extremities Exam: Full ROM - Skin Skin Exam: Normal Color, Pallor, Warm Assessment and Plan - Assessment and Plan (Free Text) Assessment: ITS Impressions Chest X-Ray 10/10/18 11:18 IMPRESSION: Interval dense pneumonia right middle lobe and scattered at the low lingula or left lower lobe as well. No pleural effusion or pneumothorax. Cardiomegaly not favored but difficult to completely exclude. See discussion above. Laboratory Tests 10/10/18 10/10/18 10/10/18 11:26 11:33 11:33 WBC 22.1 H D RBC 3.16 L Hgb 8.6 L Hct 28.0 L MCV 88.6 D MCH 27.2 MCHC 30.7 L RDW 17.5 H Plt Count 599 H MPV 9.0 Neut % (Auto) 90.4 H Lymph % (Auto) 4.7 L Canyon % (Auto) 4.6 Eos % (Auto) 0.2 L Baso % (Auto) 0.1 Lymph # (Auto) 1.0 L [place] # (Auto) 1.0 H Eos # (Auto) 0.0 Baso # (Auto) 0.02 Absolute Neuts (auto) 19.97 H Neutrophils % (Manual) 89 H Band Neutrophils % 3 H Lymphocytes % (Manual) 4 L Monocytes % (Manual) 4 pO2 VBG pH VBG pCO2 VBG HCO3 VBG Total CO2 VBG O2 Sat (Calc) VBG Base Excess VBG Potassium Glucose Lactate FiO2 Crit Value Called To Crit Value Called By Blood Gas Notified Time Sodium 141 Potassium 4.4 Chloride 104 Carbon Dioxide 27 Anion Gap 14 BUN 48 H Creatinine 1.4 H Est GFR ( Amer) 43 Est GFR (Non-Af Amer) 35 POC Glucose (mg/dL) Random Glucose 152 H Calcium 9.2 Magnesium 2.0 Total Bilirubin 0.3 AST 27 ALT 22 Alkaline Phosphatase 135 H D Total Creatine Kinase 23 L NT-Pro-B Natriuret Pep 1830 H Total Protein 6.9 Albumin 3.0 Globulin 3.9 Albumin/Globulin Ratio 0.8 L Procalcitonin Venous Blood Potassium Vancomycin Trough Influenza Typ A,B (EIA) Negative for flu a/b Ur L.pneumophila Ag Blood Type Blood Type Confirm Antibody Screen Crossmatch BBK History Checked 10/10/18 10/10/18 10/10/18 11:45 12:20 16:00 WBC RBC Hgb Hct MCV MCH MCHC RDW Plt Count MPV Neut % (Auto) Lymph % (Auto) Canyon % (Auto) Eos % (Auto) Baso % (Auto) Lymph # (Auto) [place] # (Auto) Eos # (Auto) Baso # (Auto) Absolute Neuts (auto) Neutrophils % (Manual) Band Neutrophils % Lymphocytes % (Manual) Monocytes % (Manual) pO2 20 L VBG pH 7.44 H VBG pCO2 43.0 VBG HCO3 29.2 H VBG Total CO2 30.5 H VBG O2 Sat (Calc) 38.7 L VBG Base Excess 4.4 H VBG Potassium 4.3 Glucose 127 H Lactate 2.4 H FiO2 21.0 Crit Value Called To Rn Crit Value Called By Rt Blood Gas Notified Time 1234 Sodium 139.0 Potassium Chloride 106.0 Carbon Dioxide Anion Gap BUN Creatinine Est GFR ( Amer) Est GFR (Non-Af Amer) POC Glucose (mg/dL) 179 H Random Glucose Calcium Magnesium Total Bilirubin AST ALT Alkaline Phosphatase Total Creatine Kinase NT-Pro-B Natriuret Pep Total Protein Albumin Globulin Albumin/Globulin Ratio Procalcitonin 2.66 H Venous Blood Potassium 4.3 Vancomycin Trough Influenza Typ A,B (EIA) Ur L.pneumophila Ag Blood Type Blood Type Confirm Antibody Screen Crossmatch BBK History Checked 10/10/18 10/11/18 10/11/18 16:00 14:00 14:00 WBC 20.3 H RBC 2.78 L Hgb 7.4 L Hct 24.4 L MCV 87.8 MCH 26.6 MCHC 30.3 L RDW 17.3 H Plt Count 529 H MPV 8.5 Neut % (Auto) Lymph % (Auto) Canyon % (Auto) Eos % (Auto) Baso % (Auto) Lymph # (Auto) [place] # (Auto) Eos # (Auto) Baso # (Auto) Absolute Neuts (auto) Neutrophils % (Manual) Band Neutrophils % Lymphocytes % (Manual) Monocytes % (Manual) pO2 60 H VBG pH 7.50 H VBG pCO2 32.0 L VBG HCO3 25.0 VBG Total CO2 26.0 VBG O2 Sat (Calc) 96.0 H VBG Base Excess 2.4 H VBG Potassium 4.6 Glucose 84 Lactate 1.6 FiO2 21.0 Crit Value Called To Crit Value Called By Blood Gas Notified Time Sodium 138.0 136 Potassium 4.4 Chloride 105.0 107 Carbon Dioxide 26 Anion Gap 8 L BUN 29 H Creatinine 1.0 Est GFR ( Amer) > 60 Est GFR (Non-Af Amer) 52 POC Glucose (mg/dL) Random Glucose 137 H Calcium 8.6 Magnesium Total Bilirubin 0.2 AST 27 ALT 10 Alkaline Phosphatase 111 Total Creatine Kinase NT-Pro-B Natriuret Pep Total Protein 6.1 Albumin 2.5 L Globulin 3.5 Albumin/Globulin Ratio 0.7 L Procalcitonin Venous Blood Potassium 4.6 Vancomycin Trough Influenza Typ A,B (EIA) Ur L.pneumophila Ag Blood Type Blood Type Confirm Antibody Screen Crossmatch BBK History Checked 10/11/18 10/11/18 10/12/18 19:00 19:30 06:00 WBC 17.9 H RBC 2.92 L Hgb 7.8 L Hct 25.8 L MCV 88.4 MCH 26.7 MCHC 30.2 L RDW 17.5 H Plt Count 503 H MPV 8.6 Neut % (Auto) Lymph % (Auto) Canyon % (Auto) Eos % (Auto) Baso % (Auto) Lymph # (Auto) [place] # (Auto) Eos # (Auto) Baso # (Auto) Absolute Neuts (auto) Neutrophils % (Manual) Band Neutrophils % Lymphocytes % (Manual) Monocytes % (Manual) pO2 VBG pH VBG pCO2 VBG HCO3 VBG Total CO2 VBG O2 Sat (Calc) VBG Base Excess VBG Potassium Glucose Lactate FiO2 Crit Value Called To Crit Value Called By Blood Gas Notified Time Sodium Potassium Chloride Carbon Dioxide Anion Gap BUN Creatinine Est GFR ( Amer) Est GFR (Non-Af Amer) POC Glucose (mg/dL) Random Glucose Calcium Magnesium Total Bilirubin AST ALT Alkaline Phosphatase Total Creatine Kinase NT-Pro-B Natriuret Pep Total Protein Albumin Globulin Albumin/Globulin Ratio Procalcitonin Venous Blood Potassium Vancomycin Trough Influenza Typ A,B (EIA) Ur L.pneumophila Ag Blood Type O POSITIVE Blood Type Confirm O POSITIVE Antibody Screen Negative Crossmatch See Detail BBK History Checked No verified bt 10/12/18 10/12/18 10/12/18 06:00 10:00 16:30 WBC RBC Hgb Hct MCV MCH MCHC RDW Plt Count MPV Neut % (Auto) Lymph % (Auto) Canyon % (Auto) Eos % (Auto) Baso % (Auto) Lymph # (Auto) [place] # (Auto) Eos # (Auto) Baso # (Auto) Absolute Neuts (auto) Neutrophils % (Manual) Band Neutrophils % Lymphocytes % (Manual) Monocytes % (Manual) pO2 VBG pH VBG pCO2 VBG HCO3 VBG Total CO2 VBG O2 Sat (Calc) VBG Base Excess VBG Potassium Glucose Lactate FiO2 Crit Value Called To Crit Value Called By Blood Gas Notified Time Sodium 139 139 Potassium 4.7 4.8 Chloride 109 H 109 H Carbon Dioxide 27 24 Anion Gap 8 L 11 BUN 24 H 24 H Creatinine 1.1 1.0 Est GFR ( Amer) 57 > 60 Est GFR (Non-Af Amer) 47 52 POC Glucose (mg/dL) Random Glucose 98 163 H Calcium 8.7 9.1 Magnesium Total Bilirubin 0.2 AST 36 D ALT 21 Alkaline Phosphatase 106 Total Creatine Kinase NT-Pro-B Natriuret Pep Total Protein 5.8 Albumin 2.3 L Globulin 3.4 Albumin/Globulin Ratio 0.7 L Procalcitonin Venous Blood Potassium Vancomycin Trough Influenza Typ A,B (EIA) Ur L.pneumophila Ag Negative Blood Type Blood Type Confirm Antibody Screen Crossmatch BBK History Checked 10/12/18 10/13/18 10/13/18 17:20 05:00 05:00 WBC 17.0 H RBC 3.52 Hgb 9.8 L D 9.6 L Hct 32.1 L 31.3 L MCV 88.9 MCH 27.3 MCHC 30.7 L RDW 17.4 H Plt Count 437 MPV 9.3 Neut % (Auto) 78.2 H Lymph % (Auto) 14.6 L [place] % (Auto) 6.7 H Eos % (Auto) 0.4 L Baso % (Auto) 0.1 Lymph # (Auto) 2.5 [place] # (Auto) 1.1 H Eos # (Auto) 0.1 Baso # (Auto) 0.02 Absolute Neuts (auto) 13.33 H Neutrophils % (Manual) Band Neutrophils % Lymphocytes % (Manual) Monocytes % (Manual) pO2 VBG pH VBG pCO2 VBG HCO3 VBG Total CO2 VBG O2 Sat (Calc) VBG Base Excess VBG Potassium Glucose Lactate FiO2 Crit Value Called To Crit Value Called By Blood Gas Notified Time Sodium Potassium Chloride Carbon Dioxide Anion Gap BUN Creatinine Est GFR ( Amer) Est GFR (Non-Af Amer) POC Glucose (mg/dL) Random Glucose Calcium Magnesium Total Bilirubin AST ALT Alkaline Phosphatase Total Creatine Kinase NT-Pro-B Natriuret Pep Total Protein Albumin Globulin Albumin/Globulin Ratio Procalcitonin Venous Blood Potassium Vancomycin Trough 14.0 H Influenza Typ A,B (EIA) Ur L.pneumophila Ag Blood Type Blood Type Confirm Antibody Screen Crossmatch BBK History Checked 10/13/18 10/14/18 10/14/18 05:00 07:49 07:49 WBC 15.0 H RBC 3.15 L Hgb 8.6 L Hct 27.9 L MCV 88.6 MCH 27.3 MCHC 30.8 L RDW 17.4 H Plt Count 404 MPV 8.7 Neut % (Auto) Lymph % (Auto) [place] % (Auto) Eos % (Auto) Baso % (Auto) Lymph # (Auto) [place] # (Auto) Eos # (Auto) Baso # (Auto) Absolute Neuts (auto) Neutrophils % (Manual) Band Neutrophils % Lymphocytes % (Manual) Monocytes % (Manual) pO2 VBG pH VBG pCO2 VBG HCO3 VBG Total CO2 VBG O2 Sat (Calc) VBG Base Excess VBG Potassium Glucose Lactate FiO2 Crit Value Called To Crit Value Called By Blood Gas Notified Time Sodium 140 142 Potassium 5.3 H 4.0 Chloride 114 H 112 H Carbon Dioxide 20 L 24 Anion Gap 12 10 BUN 25 H 19 Creatinine 0.9 0.8 Est GFR ( Amer) > 60 > 60 Est GFR (Non-Af Amer) 59 > 60 POC Glucose (mg/dL) Random Glucose 101 120 H Calcium 8.8 9.2 Magnesium Total Bilirubin 0.6 0.2 AST 36 45 H D ALT 12 12 Alkaline Phosphatase 111 101 Total Creatine Kinase NT-Pro-B Natriuret Pep Total Protein 6.4 5.9 Albumin 2.6 L 2.4 L Globulin 3.8 3.5 Albumin/Globulin Ratio 0.7 L 0.7 L Procalcitonin Venous Blood Potassium Vancomycin Trough Influenza Typ A,B (EIA) Ur L.pneumophila Ag Blood Type Blood Type Confirm Antibody Screen Crossmatch BBK History Checked Microbiology 10/10/18 13:00 Blood-Venous Blood Culture - Preliminary NO GROWTH AFTER 4 DAYS 10/10/18 12:20 Blood-Venous Blood Culture - Preliminary NO GROWTH AFTER 4 DAYS 10/13/18 22:25 Stool C. 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 Diff colitis and OA who presents to the hospital after increased lethargy at home over the past 4 days, now admitted with right middle and left lower lobe pneumonia, for further eval and treatment. Plan: 1. Pneumonia , right , middle lobe Antibiotics as per I.D. Follow cbc, trend wbc. 2. CDiff- continue Vanco po. Per Discussion with PMD, daughter requests home hospice. CM/ SW planning for Home Hospice, Hospic eval pending. Will continue to monitor clinical status and follow closely.
[2018-10-14] MEDS: Vancomycin 25 MG/ML PO SCH ×3 (13:51→21:18)
[2018-10-14] MEDS: Azithromycin 500MG/NS 250ml 500 MG/250 ML BAG IVPB SCH (13:52)
--- NOTE | 2018-10-14 15:02 | CP.PCM.PN ---
<Cal Chang - Last Filed: 10/14/18 14:58> Subjective - Date & Time of Evaluation Date of Evaluation: 10/14/18 Time of Evaluation: 07:00 - Subjective Subjective: ID Progress Note Patient seen and examined. Patient resting comfortably in bed. No acute events overnight. Patient with fever overnight. Objective - Vital Signs/Intake and Output Vital Signs (last 24 hours): Temp Pulse Resp BP Pulse Ox 98.4 F 114 H 20 142/62 88 L 10/14/18 06:00 10/14/18 06:00 10/14/18 06:00 10/14/18 06:00 10/13/18 10:00 - Medications Medications: Current Medications Acetaminophen (Tylenol 650 Mg Supp) 650 mg RC Q6 PRN PRN Reason: Fever >100.4 F Last Admin: 10/14/18 04:40 Dose: 650 mg Clonazepam (Klonopin) 1 mg PO QID [facility]; Protocol Last Admin: 10/14/18 11:27 Dose: Not Given Fentanyl (Duragesic) 1 patch TD Q72H [facility] Last Admin: 10/13/18 22:18 Dose: 1 patch Sodium Chloride (Sodium Chloride 0.9%) 1,000 mls @ 100 mls/hr IV .Q10H [facility] Last Admin: 10/14/18 11:35 Dose: 100 mls/hr Azithromycin (Zithromax 500mg In Ns) 500 mg in 250 mls @ 167 mls/hr IVPB DAILY [facility]; Protocol Last Admin: 10/14/18 13:52 Dose: 167 mls/hr Cefepime HCl (Maxipime 2gm) 2 gm in 100 mls @ 100 mls/hr IVPB Q12 [facility]; Protocol Stop: 10/17/18 22:01 Last Admin: 10/14/18 11:26 Dose: 100 mls/hr Mirtazapine (Remeron) 30 mg PO HS [facility] Last Admin: 10/13/18 21:02 Dose: 30 mg Oxycodone HCl (Oxycodone Immediate Release Tab) 5 mg PO Q6H PRN PRN Reason: Pain, moderate (4-7) Pantoprazole Sodium (Protonix Inj) 40 mg IVP DAILY [facility] Last Admin: 10/14/18 11:26 Dose: 40 mg Paroxetine HCl (Paxil) 30 mg PO HS [facility] Last Admin: 10/13/18 21:02 Dose: 30 mg Vancomycin HCl (Vancocin 25 Mg/Ml (Oral Use)) 250 mg PO QID [facility]; Protocol Last Admin: 10/14/18 13:51 Dose: 250 mg - Labs Labs: 10/14/18 07:49 10/14/18 07:49 - Constitutional Appears: Non-toxic, Chronically Ill - Head Exam Head Exam: ATRAUMATIC, NORMAL INSPECTION, NORMOCEPHALIC - ENT Exam ENT Exam: Mucous Membranes Moist - Respiratory Exam Respiratory Exam: Decreased Breath Sounds, NORMAL BREATHING PATTERN - Cardiovascular Exam Cardiovascular Exam: RRR, +S1, +S2 - GI/Abdominal Exam GI & Abdominal Exam: Soft, Normal Bowel Sounds. absent: Tenderness - Extremities Exam Extremities Exam: Normal Inspection. absent: Pedal Edema - Neurological Exam Neurological Exam: Alert, Awake - Psychiatric Exam Psychiatric exam: Normal Affect, Normal Mood - Skin Skin Exam: Intact, Normal Color, Warm Assessment and Plan - Assessment and Plan (Free Text) Plan: HCAP, Multilobar pneumonia LENARD Hx of C.diff colitis Hx of OA Hx of Stage IV left retroperitoneal cancer with unknown primary Hx of Bipolar disorder Plan Fever overnight, will obtain chest x-ray, blood cultures, urine cultures, and UA Continue on Cefepime and Azithromycin Patient on Vancomycin orally C. diff antigen positive, toxin negative MRSA nasal screen negative Legionella negative Continue to monitor closely Charlene, PGY-3 <Petr Burgos - Last Filed: 10/14/18 17:41> Objective - Vital Signs/Intake and Output Vital Signs (last 24 hours): Temp Pulse Resp BP Pulse Ox 98.4 F 114 H 20 142/62 88 L 10/14/18 06:00 10/14/18 06:00 10/14/18 06:00 10/14/18 06:00 10/13/18 10:00 - Medications Medications: Current Medications Acetaminophen (Tylenol 650 Mg Supp) 650 mg RC Q6 PRN PRN Reason: Fever >100.4 F Last Admin: 10/14/18 04:40 Dose: 650 mg Clonazepam (Klonopin) 1 mg PO QID [facility]; Protocol Last Admin: 10/14/18 17:17 Dose: 1 mg Fentanyl (Duragesic) 1 patch TD Q72H [facility] Last Admin: 10/13/18 22:18 Dose: 1 patch Sodium Chloride (Sodium Chloride 0.9%) 1,000 mls @ 100 mls/hr IV .Q10H [facility] Last Admin: 10/14/18 11:35 Dose: 100 mls/hr Azithromycin (Zithromax 500mg In Ns) 500 mg in 250 mls @ 167 mls/hr IVPB DAILY [facility]; Protocol Last Admin: 10/14/18 13:52 Dose: 167 mls/hr Cefepime HCl (Maxipime 2gm) 2 gm in 100 mls @ 100 mls/hr IVPB Q12 [facility]; Protocol Stop: 10/17/18 22:01 Last Admin: 10/14/18 11:26 Dose: 100 mls/hr Vancomycin HCl 1.25 gm/ Sodium (Chloride) 500 mls @ 167 mls/hr IVPB ONCE ONE; Protocol Stop: 10/14/18 20:33 Mirtazapine (Remeron) 30 mg PO HS [facility] Last Admin: 10/13/18 21:02 Dose: 30 mg Oxycodone HCl (Oxycodone Immediate Release Tab) 5 mg PO Q6H PRN PRN Reason: Pain, moderate (4-7) Pantoprazole Sodium (Protonix Inj) 40 mg IVP DAILY [facility] Last Admin: 10/14/18 11:26 Dose: 40 mg Paroxetine HCl (Paxil) 30 mg PO HS [facility] Last Admin: 10/13/18 21:02 Dose: 30 mg Vancomycin HCl (Vancocin 25 Mg/Ml (Oral Use)) 250 mg PO QID [facility]; Protocol Last Admin: 10/14/18 17:17 Dose: 250 mg - Labs Labs: 10/14/18 07:49 10/14/18 07:49 Assessment and Plan - Assessment and Plan (Free Text) Plan: Infectious diseases Attending Physician Attestation Patient seen and examined, discussed with medical office asst. I have reviewed the patient's history of present illness, past medical, social, personal and family histories, pertinent physical exam findings, course so far in this hospital admission, pertinent laboratory and imaging results. I agree with the above findings, assessment and plan. In addition,will give another dose of IV Vancomycin, and will continue cefepime and Zithromax for multilobar pneumonia (HCAP). Will repeat blood cx, CXR since patient still has intermittent fevers. Patient now with positive C. diff antigen - started on PO Vancomycin and will monitor clinically. Overall prognosis is poor.
--- NOTE | 2018-10-14 16:19 | RAD ---
Date of service: 10/14/2018 HISTORY: fever COMPARISON: 10/10/2018 FINDINGS: LUNGS: There is is a dense infiltrate at the right lung base with some extension into the right upper lobe. PLEURA: No significant pleural effusion identified, no pneumothorax apparent. CARDIOVASCULAR: Aortic calcification Mild cardiomegaly OSSEOUS STRUCTURES: No significant abnormalities. VISUALIZED UPPER ABDOMEN: Normal. OTHER FINDINGS: None. IMPRESSION: There is is a dense infiltrate at the right lung base with some extension into the right upper lobe.
[2018-10-14] MEDS ORDERED: Vancomycin 1.25 GM in Sodium Chloride 0.9% 500 ML IVPB ONE (17:34)
--- NOTE | 2018-10-14 20:39 | CON ---
DATE OF CONSULTATION: 10/14/2018 HISTORY OF PRESENT ILLNESS: In short, the patient is an 88-year-old female with squamous cell carcinoma. The patient has a history of CAD and pneumonia. The patient was brought in by her daughter for evaluation of falling and not eating for the past 1 week. The patient was found to have C. diff when the patient required admission to the medical side. Psych consult was called because the patient has history of mental illness and the patient is on psychotropic medications. The patient was seen and examined. The patient appears to be pale. The patient said that she remembered this mortgage or loan underwriter, but this mortgage or loan underwriter doubts. The patient presented with some psychomotor retardation. The patient reported that today she feels good. She is good, but based on report, the patient did not eat and the patient appears to be withdrawn. The patient denied any thoughts of harming herself or others and denied any psychotic symptoms. The patient's daughter approached this mortgage or loan underwriter and she was in psychological distress. Daughter herself suffers from mental illness, PTSD and anxiety spectrum disorder. This mortgage or loan underwriter suggested her to be followed up at [facility]. [facility] phone number was provided. The patient's daughter was advised to call and schedule appointment and was advised in case of the worsening of her symptoms she needs to call to the emergency room. The patient's daughter verbalized understanding. Going back to the patient's presentation, vital signs reviewed. Temperature is 98.4, but the patient had fever yesterday and today early at the morning time, pulse is 108, blood pressure 142/62, respiration 20. MEDICATIONS: Reviewed. The patient is on Tylenol, Zithromax, Ceftin, Klonopin 1 mg four times a day, Remeron. The patient is on fentanyl patch, oxycodone, Protonix, Paxil 30 mg at the nighttime, vancomycin and sodium chloride. LABORATORY DATA: Reviewed. White blood cells 15 today. Chemistry reviewed. Toxicology reviewed. Serology reviewed. Microbiology reviewed. MENTAL STATUS EXAMINATION: As this mortgage or loan underwriter described above, the patient presented with psychomotor retardation. Intermittent eye contact. Flat affect. Mood described as okay. Thought process seems to be concrete. She has no answers. Thought content, the patient denied any thoughts of harming herself or others. Denied intent or plan. The patient denied any psychotic symptoms. Insight and judgment seems to be limited. Impulses are well controlled. IMPRESSION: As per history, the patient has major depressive disorder and generalized anxiety disorder. At present moment, rule out mood disorder due to general medical condition. The patient has a lot of medical issues including squamous cell carcinoma, C. diff, pneumonia, failure to thrive. All medications were resumed by the patient's primary care physician. At the same time, medications were confirmed by [facility] on [address] [place] [address], phone number [phone]. The patient was on Klonopin 1 mg four times a day prescribed by Dr. Hernandez. The patient was on mirtazapine 30 mg at the nighttime. The patient also filled medication with [place] and it is mailed. The patient was on Paxil 30 mg at the nighttime. PLAN: This mortgage or loan underwriter will follow up and advise accordingly. As per daughter, the patient is DNR and DNI and the patient is looking for comfort care and daughter was requesting home hospice. Meanwhile, we will follow up and advise accordingly. Thank you very much for letting me participate in the care of your patient. Karo Smiley MD
[2018-10-15] MEDS: Sodium Chloride 0.9% 1,000 ML IV SCH ×4 (01:30→21:30)
[2018-10-15 02:55] LABS: URINE BILIRUBIN NEGATIVE (NEGATIVE); URINE BLOOD SMALL (NEGATIVE); URINE GLUCOSE (UA) NEGATIVE (NEGATIVE); URINE LEUKOCYTE ESTERASE NEGATIVE Leu/uL (NEGATIVE); URINE PROTEIN TRACE mg/dL (<30 mg/dL); URINE UROBILINOGEN 0.2 E.U./dL (<1 E.U./dL)
[2018-10-15 02:56] LABS: URINE APPEARANCE CLEAR (CLEAR); URINE COLOR LIGHT YELLOW (YELLOW)
[2018-10-15 03:17] LABS: URINE BACTERIA OCC /hpf; URINE EPITHELIAL CELLS 0 - 2 /hpf (0-5); URINE HYALINE CAST 0 - 2 /hpf; URINE RBC 0 - 2 /hpf (0-2); URINE WBC 0 - 2 /hpf (0-6)
[2018-10-15] MEDS: Cefepime IV 2 gm in NS 2 GM/100 ML BAG IVPB SCH (11:23)
[2018-10-15] MEDS: Azithromycin 500MG/NS 250ml 500 MG/250 ML BAG IVPB SCH (11:23)
[2018-10-15] MEDS: Vancomycin 25 MG/ML PO SCH ×4 (11:23→21:50)
--- NOTE | 2018-10-15 12:48 | CP.PCM.PN ---
Subjective - Date & Time of Evaluation Date of Evaluation: 10/15/18 Time of Evaluation: 09:00 - Subjective Subjective: Lethargic, responds to simple command Objective - Vital Signs/Intake and Output Vital Signs (last 24 hours): Temp Pulse Resp BP Pulse Ox 98.4 F 116 H 19 151/90 H 97 10/15/18 06:00 10/15/18 06:00 10/15/18 06:00 10/15/18 06:00 10/15/18 06:00 Intake and Output: 10/15/18 10/15/18 06:59 18:59 Intake Total 1470 Balance 1470 - Medications Medications: Current Medications Acetaminophen (Tylenol 650 Mg Supp) 650 mg RC Q6 PRN PRN Reason: Fever >100.4 F Last Admin: 10/14/18 04:40 Dose: 650 mg Clonazepam (Klonopin) 1 mg PO QID [facility]; Protocol Last Admin: 10/15/18 11:22 Dose: 1 mg Fentanyl (Duragesic) 1 patch TD Q72H [facility] Last Admin: 10/13/18 22:18 Dose: 1 patch Sodium Chloride (Sodium Chloride 0.9%) 1,000 mls @ 100 mls/hr IV .Q10H [facility] Last Admin: 10/15/18 06:06 Dose: 100 mls/hr Azithromycin (Zithromax 500mg In Ns) 500 mg in 250 mls @ 167 mls/hr IVPB DAILY [facility]; Protocol Last Admin: 10/15/18 11:23 Dose: 167 mls/hr Cefepime HCl (Maxipime 2gm) 2 gm in 100 mls @ 100 mls/hr IVPB Q12 [facility]; Protocol Stop: 10/17/18 22:01 Last Admin: 10/15/18 11:23 Dose: 100 mls/hr Mirtazapine (Remeron) 30 mg PO HS [facility] Last Admin: 10/14/18 22:00 Dose: Not Given Oxycodone HCl (Oxycodone Immediate Release Tab) 5 mg PO Q6H PRN PRN Reason: Pain, moderate (4-7) Pantoprazole Sodium (Protonix Inj) 40 mg IVP DAILY [facility] Last Admin: 10/15/18 11:22 Dose: 40 mg Paroxetine HCl (Paxil) 30 mg PO HS [facility] Last Admin: 10/14/18 21:19 Dose: 30 mg Vancomycin HCl (Vancocin 25 Mg/Ml (Oral Use)) 250 mg PO QID [facility]; Protocol Last Admin: 10/15/18 11:23 Dose: 250 mg - Labs Labs: 10/14/18 07:49 10/14/18 07:49 - Constitutional Appears: Cachectic, Chronically Ill - Eye Exam Eye Exam: Normal appearance, PERRL - ENT Exam ENT Exam: Mucous Membranes Moist - Respiratory Exam Respiratory Exam: Decreased Breath Sounds - Cardiovascular Exam Cardiovascular Exam: REGULAR RHYTHM, +S1, +S2 - GI/Abdominal Exam GI & Abdominal Exam: Soft, Normal Bowel Sounds - Back Exam Back Exam: Full ROM - Neurological Exam Neurological Exam: Alert - Skin Skin Exam: Dry, Pallor Assessment and Plan - Assessment and Plan (Free Text) Assessment: 88 year old female with history squamous cell carcinoma, sepsis who is admitted with pneumonia, leukocytosis, AMS and dysphagia Evy HENRY, rehabilitation liaison and myself met with patients daughterJoslyn. Very lengthy discussion in involving goals of care ensued. Daughter bazan that patient's health is declining. Patient was febrile last night, jean cultures, chest x ray pending. Daughter emotionally drained, slowly accepting that mother may be nearing end of life. Hospice services were discussed at length. Questions answered. Joslyn did sign consent to transition her mother home with hospice care on Sunday. Psychosocial support provided Time spent with patient family in goals of care and advance care planning, 60 minutes Plan: Goals of care and advance care planning Hospice evaluation Pneumonia: Jean cultures pending. On Zithromax, Cefepime and vancomycin Dysphagia. Continue dyaphagia level 3 diet. Aspiration precautions. AMS: safety precautions
[2018-10-15] MEDS ORDERED: Vancomycin 500mg in NS 500 MG/100 ML BAG IVPB STA (13:21)
[2018-10-15] MEDS: Meropenem IV 1 gm in NS 1 GM/50 ML BAG IVPB SCH ×2 (13:45→21:46)
--- NOTE | 2018-10-15 15:21 | CP.PCM.PN ---
<Cal Chang - Last Filed: 10/15/18 15:15> Subjective - Date & Time of Evaluation Date of Evaluation: 10/15/18 Time of Evaluation: 10:00 - Subjective Subjective: ID Progress Note Patient seen and examined. No acute events overnight. No fevers. Objective - Vital Signs/Intake and Output Vital Signs (last 24 hours): Temp Pulse Resp BP Pulse Ox 98.3 F 121 H 19 126/69 97 10/15/18 12:00 10/15/18 12:00 10/15/18 12:00 10/15/18 12:00 10/15/18 06:00 Intake and Output: 10/15/18 10/15/18 06:59 18:59 Intake Total 1470 Balance 1470 - Medications Medications: Current Medications Acetaminophen (Tylenol 650 Mg Supp) 650 mg RC Q6 PRN PRN Reason: Fever >100.4 F Last Admin: 10/14/18 04:40 Dose: 650 mg Clonazepam (Klonopin) 1 mg PO QID [facility]; Protocol Last Admin: 10/15/18 11:22 Dose: 1 mg Fentanyl (Duragesic) 1 patch TD Q72H [facility] Last Admin: 10/13/18 22:18 Dose: 1 patch Sodium Chloride (Sodium Chloride 0.9%) 1,000 mls @ 100 mls/hr IV .Q10H [facility] Last Admin: 10/15/18 06:06 Dose: 100 mls/hr Azithromycin (Zithromax 500mg In Ns) 500 mg in 250 mls @ 167 mls/hr IVPB DAILY [facility]; Protocol Last Admin: 10/15/18 11:23 Dose: 167 mls/hr Meropenem (Merrem Iv 1 Gm Premix) 1 gm in 50 mls @ 100 mls/hr IVPB Q8 [facility]; Protocol Mirtazapine (Remeron) 30 mg PO HS [facility] Last Admin: 10/14/18 22:00 Dose: Not Given Oxycodone HCl (Oxycodone Immediate Release Tab) 5 mg PO Q6H PRN PRN Reason: Pain, moderate (4-7) Pantoprazole Sodium (Protonix Inj) 40 mg IVP DAILY [facility] Last Admin: 10/15/18 11:22 Dose: 40 mg Paroxetine HCl (Paxil) 30 mg PO HS [facility] Last Admin: 10/14/18 21:19 Dose: 30 mg Vancomycin HCl (Vancocin 25 Mg/Ml (Oral Use)) 250 mg PO QID [facility]; Protocol Last Admin: 10/15/18 11:23 Dose: 250 mg - Labs Labs: 10/14/18 07:49 10/14/18 07:49 - Constitutional Appears: Toxic, No Acute Distress - Head Exam Head Exam: ATRAUMATIC, NORMAL INSPECTION, NORMOCEPHALIC - ENT Exam ENT Exam: Mucous Membranes Moist - Respiratory Exam Respiratory Exam: Decreased Breath Sounds, NORMAL BREATHING PATTERN - Cardiovascular Exam Cardiovascular Exam: Tachycardia, +S1, +S2 - GI/Abdominal Exam GI & Abdominal Exam: Soft, Normal Bowel Sounds. absent: Tenderness - Extremities Exam Extremities Exam: Normal Inspection. 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 diff antigen positive, toxin negative MRSA nasal screen negative Legionella negative Hospice evaluation pending Poor prognosis Continue to monitor closely Charlene, PGY-3 <Petr Burgos - Last Filed: 10/15/18 15:31> Objective - Vital Signs/Intake and Output Vital Signs (last 24 hours): Temp Pulse Resp BP Pulse Ox 98.3 F 121 H 19 126/69 97 10/15/18 12:00 10/15/18 12:00 10/15/18 12:00 10/15/18 12:00 10/15/18 06:00 Intake and Output: 10/15/18 10/15/18 06:59 18:59 Intake Total 1470 Balance 1470 - Medications Medications: Current Medications Acetaminophen (Tylenol 650 Mg Supp) 650 mg RC Q6 PRN PRN Reason: Fever >100.4 F Last Admin: 10/14/18 04:40 Dose: 650 mg Clonazepam (Klonopin) 1 mg PO QID [facility]; Protocol Last Admin: 10/15/18 15:17 Dose: 1 mg Fentanyl (Duragesic) 1 patch TD Q72H [facility] Last Admin: 10/13/18 22:18 Dose: 1 patch Sodium Chloride (Sodium Chloride 0.9%) 1,000 mls @ 100 mls/hr IV .Q10H [facility] Last Admin: 10/15/18 06:06 Dose: 100 mls/hr Azithromycin (Zithromax 500mg In Ns) 500 mg in 250 mls @ 167 mls/hr IVPB DAILY [facility]; Protocol Last Admin: 10/15/18 11:23 Dose: 167 mls/hr Meropenem (Merrem Iv 1 Gm Premix) 1 gm in 50 mls @ 100 mls/hr IVPB Q8 [facility]; Pr otocol Last Admin: 10/15/18 13:45 Dose: 100 mls/hr Mirtazapine (Remeron) 30 mg PO HS [facility] Last Admin: 10/14/18 22:00 Dose: Not Given Oxycodone HCl (Oxycodone Immediate Release Tab) 5 mg PO Q6H PRN PRN Reason: Pain, moderate (4-7) Pantoprazole Sodium (Protonix Inj) 40 mg IVP DAILY [facility] Last Admin: 10/15/18 11:22 Dose: 40 mg Paroxetine HCl (Paxil) 30 mg PO HS [facility] Last Admin: 10/14/18 21:19 Dose: 30 mg Vancomycin HCl (Vancocin 25 Mg/Ml (Oral Use)) 250 mg PO QID [facility]; Protocol Last Admin: 10/15/18 15:17 Dose: 250 mg - Labs Labs: 10/14/18 07:49 10/14/18 07:49 Assessment and Plan - Assessment and Plan (Free Text) Plan: Infectious diseases Attending Physician Attestation Patient seen and examined, discussed with medical fee clerk. I have reviewed the patient's history of present illness, past medical, social, personal and family histories, pertinent physical exam findings, course so far in this hospital admission, pertinent laboratory and imaging results. I agree with the above f indings, assessment and plan. In addition, will change Cefepime to Merrem and continue Doxycycline for this patient with bilateral HCAP. CXR shows possible worsening of infiltrates. Follow up repeat cx. Patient started on PO Vancomycin for possible C. diff. associated diarrhea. Overall prognosis is poor.
--- NOTE | 2018-10-15 15:27 | CP.PCM.APN ---
Subjective - Date & Time of Evaluation Date of Evaluation: 10/15/18 Time of Evaluation: 13:00 - Subjective Subjective: Pt. seen resting in bed. No complaints, is mildly confused. Objective - Vital Signs/Intake and Output Vital Signs (last 24 hours): Temp Pulse Resp BP Pulse Ox 98.3 F 121 H 19 126/69 97 10/15/18 12:00 10/15/18 12:00 10/15/18 12:00 10/15/18 12:00 10/15/18 06:00 Intake and Output: 10/15/18 10/15/18 06:59 18:59 Intake Total 1470 Balance 1470 - Medications Medications: Current Medications Acetaminophen (Tylenol 650 Mg Supp) 650 mg RC Q6 PRN PRN Reason: Fever >100.4 F Last Admin: 10/14/18 04:40 Dose: 650 mg Clonazepam (Klonopin) 1 mg PO QID [facility]; Protocol Last Admin: 10/15/18 15:17 Dose: 1 mg Fentanyl (Duragesic) 1 patch TD Q72H [facility] Last Admin: 10/13/18 22:18 Dose: 1 patch Sodium Chloride (Sodium Chloride 0.9%) 1,000 mls @ 100 mls/hr IV .Q10H [facility] Last Admin: 10/15/18 06:06 Dose: 100 mls/hr Azithromycin (Zithromax 500mg In Ns) 500 mg in 250 mls @ 167 mls/hr IVPB DAILY [facility]; Protocol Last Admin: 10/15/18 11:23 Dose: 167 mls/hr Meropenem (Merrem Iv 1 Gm Premix) 1 gm in 50 mls @ 100 mls/hr IVPB Q8 [facility]; Protocol Last Admin: 10/15/18 13:45 Dose: 100 mls/hr Mirtazapine (Remeron) 30 mg PO HS [facility] Last Admin: 10/14/18 22:00 Dose: Not Given Oxycodone HCl (Oxycodone Immediate Release Tab) 5 mg PO Q6H PRN PRN Reason: Pain, moderate (4-7) Pantoprazole Sodium (Protonix Inj) 40 mg IVP DAILY [facility] Last Admin: 10/15/18 11:22 Dose: 40 mg Paroxetine HCl (Paxil) 30 mg PO HS [facility] Last Admin: 10/14/18 21:19 Dose: 30 mg Vancomycin HCl (Vancocin 25 Mg/Ml (Oral Use)) 250 mg PO QID [facility]; Protocol Last Admin: 10/15/18 15:17 Dose: 250 mg - Labs Labs: 10/14/18 07:49 10/14/18 07:49 - Constitutional Appears: Non-toxic - Head Exam Head Exam: NORMOCEPHALIC - Eye Exam Eye Exam: absent: Conjunctival injection, EOMI, Normal appearance, Nystagmus, Periorbital swelling, Periorbital tenderness, PERRL, Scleral icterus - Neck Exam Neck Exam: Full ROM - Respiratory Exam Respiratory Exam: Decreased Breath Sounds - Cardiovascular Exam Cardiovascular Exam: REGULAR RHYTHM, +S1, +S2 - GI/Abdominal Exam GI & Abdominal Exam: absent: Bruit, Distended, Firm, Guarding, Rigid, Soft, Tenderness, Diminished Bowel Sounds, Hernia, Hyperactive Bowel Sounds, Hypoactive Bowel Sounds, Normal Bowel Sounds, Organomegaly, Pulsatile Mass, Rebound, Mass - Rectal Exam Rectal Exam: Deferred - Exam Exam: absent: Circumcision, NORMAL INSPECTION, Scrotal Swelling, Testicular Tenderness, Uretheral Discharge, Testicular Vertical Lie, Bladder Distension External exam: absent: Ecchymosis, Erythema, Lacerations, Lesions, NORMAL EXTERNAL EXAM, Swelling Speculum exam: absent: Cervical Discharge, Erythema, Foreign Body, Laceration, NORMAL SPECULUM EXAM, Tissue, Vaginal Bleeding, Vaginal Discharge Bimanual exam: absent: Adenexal Mass, Adnexal, Cervical Motion Tendernes, NORMAL BIMANUAL EXAM, Uterine Enlargement, Uterine Tenderness - Extremities Exam Extremities Exam: Full ROM - Neurological Exam Neurological Exam: Altered - Skin Skin Exam: Dry, Intact Assessment and Plan - Assessment and Plan (Free Text) Assessment: Assessment: 87 year old female with past medical history of 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 Diff colitis and OA who presents to the hospital after increased lethargy at home over the past 4 days, now admitted with right middle and left lower lobe pneumonia, for further eval and treatment. Plan: 1. Pneumonia , right , middle lobe Antibiotics as per I.D. Follow cbc, trend wbc. Repeat blood cultures from 10/14 pending 2. CDiff- continue Vanco po. Per Discussion with PMD, daughter requests home hospice. CM/ SW planning for Home Hospice, Hospice eval completed, plan Home Hospice for Sunday Will continue to monitor clinical status and follow closely.
--- NOTE | 2018-10-15 20:41 | PN ---
DATE: 10/15/2018 SUBJECTIVE: This property underwriter attempted to speak to the patient, but the patient was deeply sedated and sleeping. As per report, the patient had rough night and had episodes of trying to climb off the bed and was very confused. The patient was started on one-to-one, all of the medications resumed. The patient is currently DNR and DNI. As per report, the patient will be discharged at home hospice, and at this point, this property underwriter would recommend for the patient to be continued on benzodiazepines because the patient was on Klonopin 1 mg four times a day for many years and this property underwriter is afraid that the patient might be having withdrawal symptoms if this medication will be not resumed. Meanwhile, there is not much this property underwriter cannot offer to the patient. Emotional support and empathic listening was provided to the patient's daughter, Chiqui yesterday. This property underwriter will sign off from this case. The patient's daughter was advised to look for psychiatric services in the community. Information about providers were given to the patient's daughter. Mental status examination was not done because the patient is deeply sleeping and as per the patient's family request, this property underwriter did not wake the patient up. As per history, the patient has depression and generalized anxiety disorder. PLAN: Comfort care. The patient is in DNI and DNR. Continue psychotropic medications. The patient will be discharged at home hospice. This property underwriter will sign off. Thank you very much for letting me to participate in the care of your patient. Karo Smiley MD [facility]
[2018-10-16] MEDS: Sodium Chloride 0.9% 1,000 ML IV SCH ×2 (06:48→11:28)
[2018-10-16] MEDS: Meropenem IV 1 gm in NS 1 GM/50 ML BAG IVPB SCH ×3 (06:49→22:38)
[2018-10-16] MEDS: Azithromycin 500MG/NS 250ml 500 MG/250 ML BAG IVPB SCH (11:24)
[2018-10-16] MEDS: Vancomycin 25 MG/ML PO SCH ×4 (11:25→22:39)
--- NOTE | 2018-10-16 13:51 | CP.PCM.PCO ---
Physician Communication Note - Physician Communication Note Physician Communication Note: plan remains Home Hospice Sunday,current antibx for pneumonia,cdiff,
--- NOTE | 2018-10-16 14:10 | CP.PCM.PN ---
<Cal Chang - Last Filed: 10/16/18 14:06> Subjective - Date & Time of Evaluation Date of Evaluation: 10/16/18 Time of Evaluation: 09:30 - Subjective Subjective: ID Progress Note Patient seen and examined. Patient confused. No fevers overnight. Objective - Vital Signs/Intake and Output Vital Signs (last 24 hours): Temp Pulse Resp BP Pulse Ox 98.7 F 90 18 127/79 96 10/16/18 06:00 10/16/18 06:00 10/16/18 06:00 10/16/18 06:00 10/16/18 06:00 Intake and Output: 10/16/18 10/16/18 06:59 18:59 Intake Total 1320 Output Total 3 Balance 1317 - Medications Medications: Current Medications Acetaminophen (Tylenol 650 Mg Supp) 650 mg RC Q6 PRN PRN Reason: Fever >100.4 F Last Admin: 10/14/18 04:40 Dose: 650 mg Clonazepam (Klonopin) 1 mg PO QID [facility]; Protocol Last Admin: 10/16/18 11:25 Dose: 1 mg Fentanyl (Duragesic) 1 patch TD Q72H [facility] Last Admin: 10/13/18 22:18 Dose: 1 patch Azithromycin (Zithromax 500mg In Ns) 500 mg in 250 mls @ 167 mls/hr IVPB DAILY [facility]; Protocol Last Admin: 10/16/18 11:24 Dose: 167 mls/hr Meropenem (Merrem Iv 1 Gm Premix) 1 gm in 50 mls @ 100 mls/hr IVPB Q8 [facility]; Protocol Last Admin: 10/16/18 06:49 Dose: 100 mls/hr Sodium Chloride (Sodium Chloride 0.9%) 1,000 mls @ 50 mls/hr IV .Q20H [facility] Last Admin: 10/16/18 11:28 Dose: 50 mls/hr Mirtazapine (Remeron) 30 mg PO HS [facility] Last Admin: 10/15/18 21:47 Dose: 30 mg Oxycodone HCl (Oxycodone Immediate Release Tab) 5 mg PO Q6H PRN PRN Reason: Pain, moderate (4-7) Pantoprazole Sodium (Protonix Inj) 40 mg IVP DAILY [facility] Last Admin: 10/16/18 11:25 Dose: 40 mg Paroxetine HCl (Paxil) 30 mg PO HS [facility] Last Admin: 10/15/18 21:46 Dose: 30 mg Vancomycin HCl (Vancocin 25 Mg/Ml (Oral Use)) 250 mg PO QID [facility]; Protocol Last Admin: 10/16/18 11:25 Dose: 250 mg - Labs Labs: 10/14/18 07:49 10/14/18 07:49 - Constitutional Appears: Non-toxic, No Acute Distress - Head Exam Head Exam: ATRAUMATIC, NORMAL INSPECTION, NORMOCEPHALIC - ENT Exam ENT Exam: Mucous Membranes Moist - Respiratory Exam Respiratory Exam: Decreased Breath Sounds, NORMAL BREATHING PATTERN. absent: Rales, Rhonchi, Wheezes - Cardiovascular Exam Cardiovascular Exam: Tachycardia, +S1, +S2 - GI/Abdominal Exam GI & Abdominal Exam: Soft, Normal Bowel Sounds. absent: Tenderness - Extremities Exam Extremities Exam: Normal Inspection. 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 diff antigen positive, toxin negative Hospice on Sunday Poor prognosis Continue to monitor closely Charlene PGY-3 <Petr Burgos - Last Filed: 10/16/18 14:45> Objective - Vital Signs/Intake and Output Vital Signs (last 24 hours): Temp Pulse Resp BP Pulse Ox 98.7 F 90 18 127/79 96 10/16/18 06:00 10/16/18 06:00 10/16/18 06:00 10/16/18 06:00 10/16/18 06:00 Intake and Output: 10/16/18 10/16/18 06:59 18:59 Intake Total 1320 Output Total 3 Balance 1317 - Medications Medications: Current Medications Acetaminophen (Tylenol 650 Mg Supp) 650 mg RC Q6 PRN PRN Reason: Fever >100.4 F Last Admin: 10/14/18 04:40 Dose: 650 mg Clonazepam (Klonopin) 1 mg PO QID [facility]; Protocol Last Admin: 10/16/18 11:25 Dose: 1 mg Fentanyl (Duragesic) 1 patch TD Q72H [facility] Last Admin: 10/13/18 22:18 Dose: 1 patch Azithromycin (Zithromax 500mg In Ns) 500 mg in 250 mls @ 167 mls/hr IVPB DAILY [facility]; Protocol Last Admin: 10/16/18 11:24 Dose: 167 mls/hr Meropenem (Merrem Iv 1 Gm Premix) 1 gm in 50 mls @ 100 mls/hr IVPB Q8 [facility]; Protocol Last Admin: 10/16/18 06:49 Dose: 100 mls/hr Sodium Chloride (Sodium Chloride 0.9%) 1,000 mls @ 50 mls/hr IV .Q20H [facility] Last Admin: 10/16/18 11:28 Dose: 50 mls/hr Mirtazapine (Remeron) 30 mg PO HS [facility] Last Admin: 10/15/18 21:47 Dose: 30 mg Oxycodone HCl (Oxycodone Immediate Release Tab) 5 mg PO Q6H PRN PRN Reason: Pain, moderate (4-7) Pantoprazole Sodium (Protonix Inj) 40 mg IVP DAILY [facility] Last Admin: 10/16/18 11:25 Dose: 40 mg Paroxetine HCl (Paxil) 30 mg PO HS [facility] Last Admin: 10/15/18 21:46 Dose: 30 mg Vancomycin HCl (Vancocin 25 Mg/Ml (Oral Use)) 250 mg PO QID [facility]; Protocol Last Admin: 10/16/18 11:25 Dose: 250 mg - Labs Labs: 10/14/18 07:49 10/14/18 07:49 Assessment and Plan - Assessment and Plan (Free Text) Plan: Infectious diseases Attending Physician Attestation Patient seen and examined, discussed with medical artist. I have reviewed the patient's history of present illness, past medical, social, personal and family histories, pertinent physical exam findings, course so far in this hospital admission, pertinent laboratory and imaging results. I agree with the above findings, assessment and plan. In addition, continue Merrem and continue Zithromax for this patient with bilateral HCAP with sepsis. CXR shows possible worsening of infiltrates. Repeat cx are negative so far.Continue PO Vancomycin for possible C. diff. associated diarrhea, day 2. Overall prognosis is poor.
--- NOTE | 2018-10-16 14:44 | CP.PCM.PN ---
Subjective - Date & Time of Evaluation Date of Evaluation: 10/16/18 Time of Evaluation: 12:00 - Subjective Subjective: More alert, restless, answers simple questions. Objective - Vital Signs/Intake and Output Vital Signs (last 24 hours): Temp Pulse Resp BP Pulse Ox 98.7 F 90 18 127/79 96 10/16/18 06:00 10/16/18 06:00 10/16/18 06:00 10/16/18 06:00 10/16/18 06:00 Intake and Output: 10/16/18 10/16/18 06:59 18:59 Intake Total 1320 Output Total 3 Balance 1317 - Medications Medications: Current Medications Acetaminophen (Tylenol 650 Mg Supp) 650 mg RC Q6 PRN PRN Reason: Fever >100.4 F Last Admin: 10/14/18 04:40 Dose: 650 mg Clonazepam (Klonopin) 1 mg PO QID [facility]; Protocol Last Admin: 10/16/18 11:25 Dose: 1 mg Fentanyl (Duragesic) 1 patch TD Q72H [facility] Last Admin: 10/13/18 22:18 Dose: 1 patch Azithromycin (Zithromax 500mg In Ns) 500 mg in 250 mls @ 167 mls/hr IVPB DAILY [facility]; Protocol Last Admin: 10/16/18 11:24 Dose: 167 mls/hr Meropenem (Merrem Iv 1 Gm Premix) 1 gm in 50 mls @ 100 mls/hr IVPB Q8 [facility]; Protocol Last Admin: 10/16/18 06:49 Dose: 100 mls/hr Sodium Chloride (Sodium Chloride 0.9%) 1,000 mls @ 50 mls/hr IV .Q20H [facility] Last Admin: 10/16/18 11:28 Dose: 50 mls/hr Mirtazapine (Remeron) 30 mg PO HS [facility] Last Admin: 10/15/18 21:47 Dose: 30 mg Oxycodone HCl (Oxycodone Immediate Release Tab) 5 mg PO Q6H PRN PRN Reason: Pain, moderate (4-7) Pantoprazole Sodium (Protonix Inj) 40 mg IVP DAILY [facility] Last Admin: 10/16/18 11:25 Dose: 40 mg Paroxetine HCl (Paxil) 30 mg PO HS [facility] Last Admin: 10/15/18 21:46 Dose: 30 mg Vancomycin HCl (Vancocin 25 Mg/Ml (Oral Use)) 250 mg PO QID [facility]; Protocol Last Admin: 10/16/18 11:25 Dose: 250 mg - Labs Labs: 10/14/18 07:49 10/14/18 07:49 - Constitutional Appears: Chronically Ill - Eye Exam Eye Exam: Normal appearance, PERRL - ENT Exam ENT Exam: Mucous Membranes Moist - Respiratory Exam Respiratory Exam: Decreased Breath Sounds, NORMAL BREATHING PATTERN - Cardiovascular Exam Cardiovascular Exam: REGULAR RHYTHM, +S1, +S2 - GI/Abdominal Exam GI & Abdominal Exam: Soft, Hypoactive Bowel Sounds - Neurological Exam Neurological Exam: Altered - Skin Skin Exam: Dry, Pallor Assessment and Plan - Assessment and Plan (Free Text) Assessment: 88 jacinto old female with history of who is admitted with pneumonia, altered mental status, mild dysphagia. Singh cultures negative X2. The patient to continue antibiotic therapy. Plan for home with hospice on Sunday Spoke with patient daughter regarding home hospice planning. Daughter preparing to take her mother home. Psychosocial support /end of life counseling provided End of life counseling,20 minutes Plan: Continue Merrem, azithromycin and vancomycin Dyspahgia level three diet End of life counseling
--- NOTE | 2018-10-16 21:05 | PN ---
DATE: 10/16/2018 SUBJECTIVE: The patient is confused. She is not able to recognize me. She is asked for her mother. PHYSICAL EXAMINATION: GENERAL: The patient is lying in bed, flat, comfortable. VITAL SIGNS: Temperature is 99.4, pulse of 111, blood pressure is 141/90, and respirations are 19. HEENT: No oral lesion. Anicteric sclerae. Moist mucosa. NECK: No JVD, adenopathy, or thyromegaly. CARDIOVASCULAR: S1 and S2, regular. No murmurs, rubs, or gallops. LUNGS: Clear to auscultation bilaterally. No wheeze, rales, or rhonchi. ABDOMEN: Bowel sounds are positive, soft, nontender and nondistended. EXTREMITIES: No cyanosis, clubbing or edema. LABORATORY DATA: White count is 15 and hemoglobin 8.6. Creatinine is 0.8. ASSESSMENT: 1. 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 2. Healthcare-associated pneumonia. 3. Delirium. 4. DO NOT RESUSCITATE AND DO NOT INTUBATE. 5. Anxiety. PLAN: The patient was seen by Dr. Hernandez and I have been asked to take over the patient's care. I did speak with Dr. Hernandez as well as Radha Miller, the palliative care nurse. The patient had advanced illness, she is at end-stage. I spoke with the patient's daughter to define the goals of care. At this point, the goal of care is comfort. She is to go to hospice at home on Sunday, which is in 2 days. The patient is currently on meropenem for antibiotics. She is getting oxycodone for pain. She is on Remeron. She is on IV fluids. She is receiving azithromycin. She is on a dysphagia diet. I will discontinue DNR/DNI. I will discontinue her telemetry. I did speak with the protective services social worker and pillowcase folder to update him with the patient's current sign of care. I did speak with the nurse and the patient did sleep overnight. Overall, prognosis is poor. Oleg Floyd MD
--- NOTE | 2018-10-16 23:33 | CP.PCM.PN ---
Subjective - Date & Time of Evaluation Date of Evaluation: 10/15/18 Time of Evaluation: 09:00 - Subjective Subjective: SUBJECTIVE: She is comfortable in bed in no acute distress. She continues to be on one to one for agitation. No fever, no cough with expectoration. She has right-sided healthcare-associated pneumonia, currently on IV antibiotics, cefepime, and azithromycin. Blood cultures have been negative. She has episodes of agitation. Tries to get out of bed. REVIEW OF SYSTEMS: As per HPI. Rest of 12-point review of systems reviewed negative. PHYSICAL EXAMINATION: GENERAL: Comfortable in bed in no acute distress. VITAL SIGNS: reviewed. HEENT: Pallor positive. NECK: No lymphadenopathy. CHEST: Air entry present equal bilaterally. No added sound. CARDIOVASCULAR: S1, S2 normal. No murmur. No gallop. ABDOMEN: Soft, nontender. No hepatosplenomegaly. EXTREMITIES: No edema. SENSORIUM: Alert and oriented x3. No focal sensory motor deficit. LABORATORY DATA: reviewed. ASSESSMENT AND PLAN: 1. 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 Home hospice as per daughter who is POA. 2. Healthcare-associated pneumonia on IV antibiotics, cefepime, and Zithromax, Dr. Álvarez following. 3. psych consult Dr. Huddleston appreciated. . 4.As per daughter's request her care is transferred to Dr. Floyd who has been her PCP. Discussed with Dr. Floyd, he accepted her under his care. . Alma Hernandez MD Objective - Vital Signs/Intake and Output Vital Signs (last 24 hours): Temp Pulse Resp BP Pulse Ox 97 F L 101 H 20 139/87 96 10/16/18 18:00 10/16/18 18:00 10/16/18 18:00 10/16/18 18:00 10/16/18 06:00 Intake and Output: 10/16/18 10/17/18 18:59 06:59 Intake Total 750 Balance 750 - Medications Medications: Current Medications Acetaminophen (Tylenol 650 Mg Supp) 650 mg RC Q6 PRN PRN Reason: Fever >100.4 F Last Admin: 10/14/18 04:40 Dose: 650 mg Clonazepam (Klonopin) 1 mg PO QID [facility]; Protocol Last Admin: 10/16/18 22:39 Dose: 1 mg Fentanyl (Duragesic) 1 patch TD Q72H [facility] Last Admin: 10/16/18 22:39 Dose: 1 patch Azithromycin (Zithromax 500mg In Ns) 500 mg in 250 mls @ 167 mls/hr IVPB DAILY [facility]; Protocol Last Admin: 10/16/18 11:24 Dose: 167 mls/hr Meropenem (Merrem Iv 1 Gm Premix) 1 gm in 50 mls @ 100 mls/hr IVPB Q8 [facility]; Protocol Last Admin: 10/16/18 22:38 Dose: 100 mls/hr Sodium Chloride (Sodium Chloride 0.9%) 1,000 mls @ 50 mls/hr IV .Q20H [facility] Last Admin: 10/16/18 11:28 Dose: 50 mls/hr Mirtazapine (Remeron) 30 mg PO HS [facility] Last Admin: 10/16/18 22:39 Dose: 30 mg Oxycodone HCl (Oxycodone Immediate Release Tab) 5 mg PO Q6H PRN PRN Reason: Pain, moderate (4-7) Pantoprazole Sodium (Protonix Inj) 40 mg IVP DAILY [facility] Last Admin: 10/16/18 11:25 Dose: 40 mg Paroxetine HCl (Paxil) 30 mg PO HS [facility] Last Admin: 10/16/18 22:39 Dose: 30 mg Vancomycin HCl (Vancocin 25 Mg/Ml (Oral Use)) 250 mg PO QID [facility]; Protocol Last Admin: 10/16/18 22:39 Dose: 250 mg - Labs Labs: 10/14/18 07:49 10/14/18 07:49
[2018-10-17] MEDS: Meropenem IV 1 gm in NS 1 GM/50 ML BAG IVPB SCH ×3 (05:32→21:25)
[2018-10-17] MEDS: Azithromycin 500MG/NS 250ml 500 MG/250 ML BAG IVPB SCH (09:26)
[2018-10-17] MEDS: Vancomycin 25 MG/ML PO SCH ×4 (09:27→21:26)
--- NOTE | 2018-10-17 09:46 | CP.PCM.PN ---
<Cal Chang - Last Filed: 10/17/18 12:32> Subjective - Date & Time of Evaluation Date of Evaluation: 10/17/18 Time of Evaluation: 07:30 - Subjective Subjective: ID Progress Note Patient seen and examined. Patient lethargic. Mild fever overnight. Objective - Vital Signs/Intake and Output Vital Signs (last 24 hours): Temp Pulse Resp BP Pulse Ox 98.1 F 95 H 20 133/73 97 10/17/18 06:00 10/17/18 06:00 10/17/18 06:00 10/17/18 06:00 10/17/18 06:00 Intake and Output: 10/17/18 10/17/18 06:59 18:59 Intake Total 1120 Output Total 750 Balance 370 - Medications Medications: Current Medications Acetaminophen (Tylenol 650 Mg Supp) 650 mg RC Q6 PRN PRN Reason: Fever >100.4 F Last Admin: 10/16/18 23:36 Dose: 650 mg Clonazepam (Klonopin) 1 mg PO QID [facility]; Protocol Last Admin: 10/17/18 09:27 Dose: 1 mg Fentanyl (Duragesic) 1 patch TD Q72H [facility] Last Admin: 10/16/18 22:39 Dose: 1 patch Azithromycin (Zithromax 500mg In Ns) 500 mg in 250 mls @ 167 mls/hr IVPB DAILY [facility]; Protocol Last Admin: 10/17/18 09:26 Dose: 167 mls/hr Meropenem (Merrem Iv 1 Gm Premix) 1 gm in 50 mls @ 100 mls/hr IVPB Q8 [facility]; Protocol Last Admin: 10/17/18 05:32 Dose: 100 mls/hr Sodium Chloride (Sodium Chloride 0.9%) 1,000 mls @ 50 mls/hr IV .Q20H [facility] Last Admin: 10/16/18 11:28 Dose: 50 mls/hr Lorazepam (Ativan) 0.5 mg IVP Q6H PRN; Protocol PRN Reason: Anxiety Mirtazapine (Remeron) 30 mg PO HS [facility] Last Admin: 10/16/18 22:39 Dose: 30 mg Oxycodone HCl (Oxycodone Immediate Release Tab) 5 mg PO Q6H PRN PRN Reason: Pain, moderate (4-7) Pantoprazole Sodium (Protonix Inj) 40 mg IVP DAILY [facility] Last Admin: 10/17/18 09:26 Dose: 40 mg Paroxetine HCl (Paxil) 30 mg PO HS [facility] Last Admin: 10/16/18 22:39 Dose: 30 mg Vancomycin HCl (Vancocin 25 Mg/Ml (Oral Use)) 250 mg PO QID [facility]; Protocol Last Admin: 10/17/18 09:27 Dose: 250 mg - Labs Labs: 10/14/18 07:49 10/14/18 07:49 - Constitutional Appears: Non-toxic, No Acute Distress - Head Exam Head Exam: ATRAUMATIC, NORMAL INSPECTION, NORMOCEPHALIC - Respiratory Exam Respiratory Exam: Decreased Breath Sounds, NORMAL BREATHING PATTERN - Cardiovascular Exam Cardiovascular Exam: Tachycardia, +S1, +S2 - GI/Abdominal Exam GI & Abdominal Exam: Soft, Normal Bowel Sounds. absent: Tenderness - Extremities Exam Extremities Exam: Normal Inspection. absent: Pedal Edema - Neurological Exam Neurological Exam: Alert, Awake, Oriented x3 - Psychiatric Exam Psychiatric exam: Normal Affect, Normal Mood - Skin Skin Exam: Dry, Intact, Warm Assessment and Plan - Assessment and Plan (Free Text) Plan: HCAP, Multilobar pneumonia Possible C. 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 diff as per primary team C. diff antigen positive, toxin negative Hospice on Sunday Poor prognosis Charlene, PGY-3 <Petr Burgos S - Last Filed: 10/17/18 17:55> Objective - Vital Signs/Intake and Output Vital Signs (last 24 hours): Temp Pulse Resp BP Pulse Ox 99 F 104 H 20 140/71 97 10/17/18 17:36 10/17/18 17:36 10/17/18 17:36 10/17/18 17:36 10/17/18 06:00 Intake and Output: 10/17/18 10/17/18 06:59 18:59 Intake Total 1120 Output Total 750 Balance 370 - Medications Medications: Current Medications Acetaminophen (Tylenol 650 Mg Supp) 650 mg RC Q6 PRN PRN Reason: Fever >100.4 F Last Admin: 10/16/18 23:36 Dose: 650 mg Clonazepam (Klonopin) 1 mg PO QID [facility]; Protocol Last Admin: 10/17/18 17:33 Dose: 1 mg Fentanyl (Duragesic) 1 patch TD Q72H [facility] Last Admin: 10/16/18 22:39 Dose: 1 patch Azithromycin (Zithromax 500mg In Ns) 500 mg in 250 mls @ 167 mls/hr IVPB DAILY [facility]; Protocol Stop: 10/17/18 23:00 Last Admin: 10/17/18 09:26 Dose: 167 mls/hr Meropenem (Merrem Iv 1 Gm Premix) 1 gm in 50 mls @ 100 mls/hr IVPB Q8 [facility]; Protocol Stop: 10/17/18 23:00 Last Admin: 10/17/18 14:34 Dose: 100 mls/hr Sodium Chloride (Sodium Chloride 0.9%) 1,000 mls @ 50 mls/hr IV .Q20H [facility] Last Admin: 10/16/18 11:28 Dose: 50 mls/hr Lorazepam (Ativan) 0.5 mg IVP Q6H PRN; Protocol PRN Reason: Anxiety Mirtazapine (Remeron) 30 mg PO HS [facility] Last Admin: 10/16/18 22:39 Dose: 30 mg Oxycodone HCl (Oxycodone Immediate Release Tab) 5 mg PO Q6H PRN PRN Reason: Pain, moderate (4-7) Pantoprazole Sodium (Protonix Inj) 40 mg IVP DAILY [facility] Last Admin: 10/17/18 09:26 Dose: 40 mg Paroxetine HCl (Paxil) 30 mg PO HS [facility] Last Admin: 10/16/18 22:39 Dose: 30 mg Vancomycin HCl (Vancocin 25 Mg/Ml (Oral Use)) 250 mg PO QID [facility]; Protocol Last Admin: 10/17/18 17:35 Dose: 250 mg - Labs Labs: 10/14/18 07:49 10/14/18 07:49 Assessment and Plan - Assessment and Plan (Free Text) Plan: Infectious diseases Attending Physician Attestation Patient seen and examined, discussed with medical file clerk. I have reviewed the patient's history of present illness, past medical, social, personal and family histories, pertinent physical exam findings, course so far in this hospital admission, pertinent laboratory and imaging results. I agree with the above findings, assessment and plan. In addition, continue Merrem and Zithromax for multilobar pneumonia, HCAP. Continue PO Vancomycin for possible C. diff. associated diarrhea. Overall prognosis is poor.
--- NOTE | 2018-10-17 10:44 | PN ---
DATE: 10/17/2018 SUBJECTIVE: The patient is able to sleep last night. She is not able to communicate well. PHYSICAL EXAMINATION: VITAL SIGNS: Temperature of 98.1, pulse of 95, blood pressure is 133/73, respirations 20. GENERAL: The patient is lying in bed, flat, comfortable. HEENT: No oral lesion. Anicteric sclerae. Moist mucosa. NECK: No JVD, adenopathy, or thyromegaly. CARDIOVASCULAR: S1 and S2, regular. No murmurs, rubs, or gallops. LUNGS: Clear to auscultation bilaterally. No wheeze, rales, or rhonchi. ABDOMEN: Bowel sounds are positive, soft, nontender and nondistended. EXTREMITIES: No cyanosis, clubbing or edema. LABORATORY DATA: No new labs. ASSESSMENT: 1. 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 2. Healthcare-associated pneumonia. 3. Delirium. 4. Anxiety. 5. DO NOT RESUSCITATE/DO NOT INTUBATE. PLAN: The patient is currently being treated for pneumonia. The patient's daughter decided for comfort care and will be transferred to hospice on Sunday at home,which is tomorrow. The patient is on Fentanyl patch. She is going to continue with Klonopin. She is on meropenem for antibiotics. She is on Paxil for her anxiety and depression. She is on Remeron. She is getting IV fluids with normal saline at 50 an hour. She is receiving dysphagia diet. She is also on one-to-one. I did speak to the patient's daughter yesterday to give her an update, I will speak to her again today. I will place the patient on Ativan in case she gets anxious and requires medications IV. According to the nurse, the patient does not take oral medications when she is anxious. Oleg Floyd MD
[2018-10-18 00:26] VITALS: RESP 18
[2018-10-18] MEDS: Sodium Chloride 0.9% 1,000 ML IV SCH ×2 (00:35→08:22)
[2018-10-18 06:16] VITALS: BP 108/63; PULSE 102; TEMP 98; O2SAT 91
[2018-10-18] MEDS: Vancomycin 25 MG/ML PO SCH (09:24)
--- NOTE | 2018-10-18 13:38 | CP.PCM.PN ---
<Cal Chang - Last Filed: 10/18/18 13:35> Subjective - Date & Time of Evaluation Date of Evaluation: 10/18/18 Time of Evaluation: 07:40 - Subjective Subjective: ID Progress Note Patient seen and examined. Patient still agitated at night. Fever yesterday. Objective - Vital Signs/Intake and Output Vital Signs (last 24 hours): Temp Pulse Resp BP Pulse Ox 98 F 102 H 18 108/63 91 L 10/18/18 06:00 10/18/18 06:00 10/18/18 06:00 10/18/18 06:00 10/18/18 06:00 Intake and Output: 10/18/18 10/18/18 06:59 18:59 Intake Total 1020 200 Balance 1020 200 - Labs Labs: 10/14/18 07:49 10/14/18 07:49 - Constitutional Appears: Non-toxic, No Acute Distress - Head Exam Head Exam: ATRAUMATIC, NORMAL INSPECTION, NORMOCEPHALIC - ENT Exam ENT Exam: Mucous Membranes Moist - Respiratory Exam Respiratory Exam: Decreased Breath Sounds, NORMAL BREATHING PATTERN - Cardiovascular Exam Cardiovascular Exam: RRR, +S1, +S2 - GI/Abdominal Exam GI & Abdominal Exam: Soft, Normal Bowel Sounds. absent: Tenderness - Extremities Exam Extremities Exam: Normal Inspection. absent: Pedal Edema - Neurological Exam Neurological Exam: Alert, Awake - Psychiatric Exam Psychiatric exam: Agitated, Normal Mood - Skin Skin Exam: Intact, Normal Color, Warm Assessment and Plan - Assessment and Plan (Free Text) Plan: HCAP, Multilobar pneumonia Possible C. 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 diff antigen positive, toxin negative Hospice today Poor prognosis Charlene, PGY-3 <Petr Burgos - Last Filed: 10/18/18 19:44> Objective - Vital Signs/Intake and Output Vital Signs (last 24 hours): Temp Pulse Resp BP Pulse Ox 98 F 102 H 18 108/63 91 L 10/18/18 06:00 10/18/18 06:00 10/18/18 06:00 10/18/18 06:00 10/18/18 06:00 Intake and Output: 10/18/18 10/19/18 18:59 06:59 Intake Total 200 Balance 200 - Labs Labs: 10/14/18 07:49 10/14/18 07:49 Assessment and Plan - Assessment and Plan (Free Text) Plan: Infectious diseases Attending Physician Attestation Patient seen and examined, discussed with clinical specialist medical device. I have reviewed the patient's history of present illness, past medical, social, personal and family histories, pertinent physical exam findings, course so far in this hospital admission, pertinent laboratory and imaging results. I agree with the above findings, assessment and plan. In addition, day 7 of Merrem and Zithromax for multilobar HCAP - last day today. Complete total 10 days of PO Vancomycin for probable C. diff. associated diarrhea. Overall prognosis is poor and patient is planned for hospice care.
== END 2018-10-18 12:09 | disposition hospice, home (50) | DRG 871 ==
LOC: ED 10:49 → ERH 12:46 → 2RNO 14:52
PROVIDERS: ADMIT Internal Medicine Medical Oncology; ATTEND Internal Medicine Nephrology
DX: A41.9 Sepsis, unspecified organism (principal); J18.1 Lobar pneumonia, unspecified organism; E46 Unspecified protein-calorie malnutrition; Z68.1 Body mass index [BMI] 19.9 or less, adult; A04.72 Enterocolitis due to Clostridium difficile, not specified as recurrent; R64 Cachexia; C78.6 Secondary malignant neoplasm of retroperitoneum and peritoneum; E86.0 Dehydration; D50.9 Iron deficiency anemia, unspecified; R13.10 Dysphagia, unspecified; C80.1 Malignant (primary) neoplasm, unspecified; F03.90 Unspecified dementia, unspecified severity, without behavioral disturbance, psychotic disturbance, mood disturbance, and anxiety; F41.1 Generalized anxiety disorder; F32.9 Major depressive disorder, single episode, unspecified; R62.7 Adult failure to thrive; Z51.5 Encounter for palliative care; Z66 Do not resuscitate; G89.29 Other chronic pain; E78.00 Pure hypercholesterolemia, unspecified; H91.91 Unspecified hearing loss, right ear; K58.9 Irritable bowel syndrome, unspecified; F31.9 Bipolar disorder, unspecified; I10 Essential (primary) hypertension; K21.9 Gastro-esophageal reflux disease without esophagitis; Y95 Nosocomial condition; Z92.21 Personal history of antineoplastic chemotherapy; Z85.528 Personal history of other malignant neoplasm of kidney; Z87.01 Personal history of pneumonia (recurrent); Z88.1 Allergy status to other antibiotic agents; Z87.891 Personal history of nicotine dependence